=== PATIENT | male | born 1950 | race Caucasian/White ===

== ENCOUNTER 2017-07-17 18:44 | Inpatient (IN) | payer MEDICARE, OTHER, SELFPAY ==
[2017-07-17] VITALS (9 sets, daily range): BP systolic 129–151; BP diastolic 80–98; PULSE 55–67; RESP 15–21; TEMP 36.4–36.8; O2SAT 96–97; BMI 30.4
--- NOTE | 2017-07-17 19:07 | EKG12_ITS ---
Test Reason : REPEAT Blood Pressure : / mmHG Vent. Rate : 060 BPM Atrial Rate : 060 BPM P-R Int : 156 ms QRS Dur : 134 ms QT Int : 460 ms P-R-T Axes : 018 -33 023 degrees QTc Int : 460 ms Normal sinus rhythm with sinus arrhythmia Left axis deviation Right bundle branch block Abnormal ECG Confirmed by PHILIP GIBSON, NAEL ([id number]), movie editor SHANTELLE GAUTAM ([id number]) on 07/20/2017 1:42:01 PM Referred By: JUANPABLO Confirmed By:NAEL PALACIOS MD
--- NOTE | 2017-07-17 19:07 | RAD_ITS ---
STUDY: X-RAY CHEST REASON FOR EXAM: Male, 67 years old. Chest pain TECHNIQUE: Single frontal view of the chest. COMPARISON: April 02, 2009 FINDINGS: The lungs are clear and expanded. There is no demonstrated pleural abnormality. Normal size heart. Normal mediastinum and vibha. Normal visualized pulmonary arteries. Normal visualized aortic arch and descending thoracic aorta. Normal visualized thoracic spine. Normal visualized ribs, clavicles, and shoulders. There is no demonstrated abnormality of the visualized soft tissue structures of the upper abdomen. RAD/Chest 1 View (Portable) IMPRESSION: Normal x-ray examination of the chest. Electronically Signed: Devin Villegas MD at 19:34 EST , Service support ,
[2017-07-17] MEDS: Aspirin 81 MG TAB.CHEW 324 MG PO (19:33)
[2017-07-17] MEDS: 0.9% Normal Saline 1,000 ML 150 ML IV (19:33)
[2017-07-17 19:35] LABS: Absolute Lymphocyte Count 2.05 X10^3/ul (0.83-4.51); Absolute Neutrophil Count 7.8 X10^3/uL (2.0-7.7); Basophil# 0.12 X10^3/uL; Eosinophil# 0.31 X10^3/uL; Eosinophils% 2.7 % (0-5); Hematocrit 47.8 % (40-54); Hemoglobin 15.8 g/dl (13.0-16.5); Lymphocyte # 2.05 X10^3/ul (4.0); Lymphocyte % 17.5 % (19-41); Mean Corp Hgb Conc 33.1 g/gl (32-36); Mean Corpuscular Hgb 31.2 pg (27.0-32.0); Mean Corpuscular Volume 94.3 fL (80-94); Mean Platelet Vol. 10.8 fl (6.2-12.0); Monocyte# 1.32 X10^3/uL; Monocyte% 11.3 % (0-10); Neutrophil # 7.84 X10^3/uL (2.7-7.7); Neutrophil % 67.1 % (47-70); Platelet Count 282 K/mm3 (150-450); RBC Distribution Width CV 14.5 % (11.6-14.6); RBC Distribution Width SD 49.2 fl (35.1-43.9); Red Blood Count 5.07 M/mm3 (4.6-6.2); White Blood Count 11.7 K/mm3 (4.4-11.0)
[2017-07-17 19:36] LABS: POSITIVE COUNT NO; POSITIVE DIFFERENTIAL NO; POSITIVE MORPHOLOGY NO
--- NOTE | 2017-07-17 19:44 | ED.VISSUMM ---
- ER Visit Summary Date of Service: 07/17/17 Chief Complaint: Chest pain History of Present Illness: The patient is a [address] Corrales. He reports that he had chest pain that began yesterday at approximately 9 PM while he was at rest. States that it is an intermittent pain that comes on with exertion and resolves with 5-10 minutes of rest. It is a dull, aching pain on the left side of his chest with radiation straight through to his back and down the back of his left arm. Pain is 4 out of 10 at worst and 3-10 currently. The current pain began partially 5 minutes ago while he was walking up the ramp to the emergency department. He denies any associated nausea, vomiting, diaphoresis, or shortness of breath. States this is occurred approximately 10 times since last night. Physical Examination: Vitals: Stable. Afebrile. General: Well-nourished and well-developed. Head: Normocephalic atraumatic. Neck: Supple, no lymphadenopathy. No JVD. Nontender. Cardiovascular: Regular rate and rhythm. No murmurs. Respiratory: No respiratory distress. Clear to auscultation bilaterally. Abdominal: Soft, nontender, nondistended, normal bowel sounds. No guarding, rebound, or peritoneal signs. Back: Nontender. Extremities: Nontender, no edema. Skin: Normal color, no rash. Neurologic: Alert and oriented ?3. Cranial nerves II through XII are intact. Normal strength and sensation. Psych: Normal affect. Test Results: EKG is sinus the right bundle wes block at a rate of 61. Is unchanged from March 2009. CBC is marked for white count of 11.7, lymphocytes of 18, monocytes of 11. Chest x-ray is normal. Initial troponin is less than 0.02. Chem-7 is more for BUN 23 and creatinine 1.41. Repeat EKG is unchanged. Emergency Department Course and Treatment: Patient had an IV placed. His pain is resolved. He was given aspirin p.o. Treatment Plan: The patient was discussed with Dr. Matos. He is given a dose of Lovenox subcu, Brilinta p.o., and Lopressor p.o. He will be kept n.p.o. after midnight with the plan of a heart catheterization in the morning. She was discussed with Dr. Lowe who will admit him to the hospital. Disposition: Admitted in stable condition Impression: 1. Chest pain. 2. SLADE score of 3. This note was generated with [employer] dictation software. It may contain incorrect words, spelling, and punctuation that were not noted in review of the chart prior to signing ED Disposition - Plan for ED Patient: Chief Complaint: Chest Other Referrals: Willem Corrales MD [Primary Care Provider] -
--- NOTE | 2017-07-17 19:45 | EKG12_ITS ---
Test Reason : CP Blood Pressure : / mmHG Vent. Rate : 061 BPM Atrial Rate : 061 BPM P-R Int : 178 ms QRS Dur : 126 ms QT Int : 444 ms P-R-T Axes : 043 -32 019 degrees QTc Int : 446 ms Normal sinus rhythm Left axis deviation Right bundle branch block Abnormal ECG Confirmed by PHILIP GIBSON, NAEL ([id number]), technical writer and editor SHANTELLE GAUTAM ([id number]) on 07/20/2017 1:42:18 PM Referred By: JUANPABLO Confirmed By:NAEL PALACIOS MD
[2017-07-17 19:53] LABS: Anion Gap 8 (5-15); BUN 23 mg/dL (7-18); BUN/Creat Ratio 16.3 RATIO (10-20); Calcium,Total 9.4 mg/dL (8.5-10.1); Chloride 100 mmol/L (98-107); Creatinine, Serum 1.41 mg/dL (0.70-1.30); EST Glomerular Filtration Rate 53 mL/min (>60); Est Glom Filt Rate - Afr Amer 64 mL/min (>60); Estimated Creatinine Clearance 48.51 ml/min; Glucose 94 mg/dL (74-106); Potassium 3.5 mmol/L (3.5-5.1); Sodium Level 137 mmol/L (136-145)
[2017-07-17] MEDS: Metoprolol Tartrate 25 MG Tablet PO (20:48)
[2017-07-17] MEDS: TICAGRELOR 90 MG TABLET 180 MG PO (20:48)
[2017-07-17] MEDS: Enoxaparin 100 MG/ML Syringe 90 MG SC (20:49)
--- NOTE | 2017-07-17 21:00 | PCM.HP.STD ---
Problem List (1) Unstable angina Status: Acute (2) Hypertension Status: Chronic (3) CKD (chronic kidney disease), stage III Status: Chronic (4) BPH (benign prostatic hyperplasia) Status: Chronic (5) Hyperlipidemia Status: Chronic History of Present Illness Date of Admission: 07/17/17 Chief Complaint: chest pain The patient is a 67 year old M presents with a one-day history of left-sided chest pain. The chest pain is dull and aching. It radiates to his left side and back but also up to his left shoulder. Patient denies any shortness of breath, diaphoresis. Patient had chest pain about 15 years ago but was midsternal and patient underwent a workup and was told that it was related with reflux at that time. This chest pain feels different than that. Patient had an EKG that showed a right bundle branch block, no additional EKGs were available. The ER physician spoke with Dr. Matos, of cardiology, who recommended therapeutic dosing of Lovenox as well as a dose of Brilinta and aspirin. Patient is chest pain-free at this time. [] Past Medical History Past Medical History (Chronic Problems): Chronic Problems Hypertension (Chronic) CKD (chronic kidney disease), stage III (Chronic) BPH (benign prostatic hyperplasia) (Chronic) Hyperlipidemia (Chronic) Allergies No Known Allergies Allergy (Verified 07/17/17 18:45) Home Medications: Ambulatory Orders Medication Instructions Recorded Aspirin [Aspir-Low] 81 mg PO DAILY 07/17/17 Cholecalciferol (Vitamin D3) 1,000 unit PO DAILY 07/17/17 [Vitamin D3] Finasteride [Proscar] 5 mg PO DAILY 07/17/17 Hydrochlorothiazide [Hctz] 25 mg PO DAILY 07/17/17 Rosuvastatin Calcium [Crestor] 40 mg PO QHS 07/17/17 Psychiatric History: No pertinent psych hx Smoking Status: Current some day smoker Tobacco Use: Cigars - 3 cigars per week Alcohol: None Drugs: None - *Family History Maternal History Items: Heart Disease - Pacemaker, - - Lived to 96 Paternal History Items: Heart Disease - Pacemaker, - - Live to 100 years old Review of Systems Constitutional: Denies: Chills, Fever, Weight Change Eyes: Denies: Blurred vision, Double vision HEENT: Denies: Head Aches, Sinus Congestion, Sinus Drainage Cardiovascular: Reports: Chest Pain. Denies: Edema, Orthopnea Respiratory: Denies: Cough, Shortness of breath at rest, Sputum production Gastrointestinal: Denies: Abdominal Pain, Nausea, Vomiting Genitourinary: Denies: Dysuria Musculoskeletal: Denies: Joint Pain, Joint Tenderness Skin: Denies: Rash, Wounds Neurological: Denies: Numbness, Tingling, Focal weakness Psychiatric: Denies: Anxiety, Depression Endocrine: Denies: Change in Body Habitus, Heat/ Cold Intolerance Hematologic/ Lymphatic: Denies: Easy Bruising, Easy Bleeding, Hx of blood clot VTE Information - Inpt Only VTE Present on Admission: No VTE Pharm Prophylaxis ordered?: Yes Patient Problems: Active and Suspected Problems Unstable angina (Acute) - Physical Exam General: Alert, Cooperative, No apparent distress HEENT: Atraumatic, Normocephalic Oral: Moist Mucosa, No Gingival or Mucosal Lesions/ Ulcerations Neck: No Nodes, Thyroid Normal Size and Texture Lungs: Clear to auscultation, Normal air movement, No rhonchi, No wheeze Cardiovascular: Regular rate, Regular Rhythm, Normal S1, Normal S2, No murmurs Abdomen: Bowel Sounds Present, Soft, Non Tender, Non-Distended, No Hepato-splenomegaly Extremities: No edema, No Calf Tenderness Skin: No rashes, No breakdown Musculoskeletal: No Tenderness to Palpation of Joints or Extremities, No Muscle Wasting Neurological: Neuro grossly intact, Sensory exam intact to light touch and pain, Coordination normal Psych/Mental Status: Normal Affect, Appropriate Vital Signs Temp Pulse Resp BP Pulse Ox 36.6 C 58 L 17 141/85 H 96 07/17/17 19:50 07/17/17 20:56 07/17/17 20:56 07/17/17 20:56 07/17/17 20:56 Oxygen Flow Rate 2 Oxygen Delivery Method Nasal Cannula Weight: 90.718 kg Body Mass Index (BMI) 30.4 Laboratory Tests Past 24 Hrs 07/17/17 07/17/17 19:20 19:20 WBC 11.7 H RBC 5.07 Hgb 15.8 Hct 47.8 MCV 94.3 H MCH 31.2 MCHC 33.1 RDW 14.5 RDW Differential 49.2 H Plt Count 282 MPV 10.8 Immature Gran % (Auto) 0.400 Neut % (Auto) 67.1 Lymph % (Auto) 17.5 L [place] % (Auto) 11.3 H Eos % (Auto) 2.7 Baso % (Auto) 1.0 Absolute Neuts (auto) 7.8 H Absolute Lymphs (auto) 2.05 Total Counted Not Reportable Sodium 137 Potassium 3.5 Chloride 100 Carbon Dioxide 29.0 Anion Gap 8 BUN 23 H Creatinine 1.41 H Estim Creat Clear Calc 48.51 Est GFR (MDRD) Af Amer 64 Est GFR (MDRD) Non-Af 53 L BUN/Creatinine Ratio 16.3 Glucose 94 Calcium 9.4 Troponin I < 0.02 Clinical Impression(s) from Imaging Studies Chest X-Ray 07/17/17 19:07 IMPRESSION: Normal x-ray examination of the chest. Electronically Signed: Devin Villegas MD at 19:34 EST , Service support , EKG reviewed and showed normal sinus rhythm with a right bundle branch block. No previous EKGs were available to be compared to. Assessment/Plan Active and Suspected Problems Unstable angina (Acute) 1. Unstable angina Patient has a clinically concerning story. Cardiology has been notified already and the plan is for a left heart catheterization on July 18. We will proceed with medical therapy for now. Patient did receive Brilinta as well as Lovenox in the emergency room. We will give the patient's home dose of aspirin. Continue with Lovenox but hold if necessary further heart catheterization depending what time that will be. Cycle troponins As needed nitroglycerin patient also be on a low-dose beta-analia. We will utilize 12.5 mg given the patient with a low normal heart rate. 2. Hypertension Continue with home medications. 3. Chronic kidney disease stage III I suspect this is chronic rather than acute process. No prior lab work available to be compared to. With anticipated left heart catheterization and contrast load, patient will be on IV fluids. 4. DVT prophylaxis: Patient will be anticoagulated. Code Visit Inpatient E&M: 29032 Init Hosp L3
--- NOTE | 2017-07-17 21:07 | HP.PCM_ITS ---
Problem List (1) Unstable angina Status: Acute (2) Hypertension Status: Chronic (3) CKD (chronic kidney disease), stage III Status: Chronic (4) BPH (benign prostatic hyperplasia) Status: Chronic (5) Hyperlipidemia Status: Chronic History of Present Illness Date of Admission: 07/17/17 Chief Complaint: chest pain The patient is a 67 year old M presents with a one-day history of left-sided chest pain. The chest pain is dull and aching. It radiates to his left side and back but also up to his left shoulder. Patient denies any shortness of breath, diaphoresis. Patient had chest pain about 15 years ago but was midsternal and patient underwent a workup and was told that it was related with reflux at that time. This chest pain feels different than that. Patient had an EKG that showed a right bundle branch block, no additional EKGs were available. The ER physician spoke with Dr. Matos, of cardiology, who recommended therapeutic dosing of Lovenox as well as a dose of Brilinta and aspirin. Patient is chest pain-free at this time. [] Past Medical History Past Medical History (Chronic Problems): Chronic Problems Hypertension (Chronic) CKD (chronic kidney disease), stage III (Chronic) BPH (benign prostatic hyperplasia) (Chronic) Hyperlipidemia (Chronic) Allergies No Known Allergies Allergy (Verified 07/17/17 18:45) Home Medications: Ambulatory Orders Medication Instructions Recorded Aspirin [Aspir-Low] 81 mg PO DAILY 07/17/17 Cholecalciferol (Vitamin D3) 1,000 unit PO DAILY 07/17/17 [Vitamin D3] Finasteride [Proscar] 5 mg PO DAILY 07/17/17 Hydrochlorothiazide [Hctz] 25 mg PO DAILY 07/17/17 Rosuvastatin Calcium [Crestor] 40 mg PO QHS 07/17/17 Psychiatric History: No pertinent psych hx Smoking Status: Current some day smoker Tobacco Use: Cigars - 3 cigars per week Alcohol: None Drugs: None - *Family History Maternal History Items: Heart Disease - Pacemaker, - - Lived to 96 Paternal History Items: Heart Disease - Pacemaker, - - Live to 100 years old Review of Systems Constitutional: Denies: Chills, Fever, Weight Change Eyes: Denies: Blurred vision, Double vision HEENT: Denies: Head Aches, Sinus Congestion, Sinus Drainage Cardiovascular: Reports: Chest Pain. Denies: Edema, Orthopnea Respiratory: Denies: Cough, Shortness of breath at rest, Sputum production Gastrointestinal: Denies: Abdominal Pain, Nausea, Vomiting Genitourinary: Denies: Dysuria Musculoskeletal: Denies: Joint Pain, Joint Tenderness Skin: Denies: Rash, Wounds Neurological: Denies: Numbness, Tingling, Focal weakness Psychiatric: Denies: Anxiety, Depression Endocrine: Denies: Change in Body Habitus, Heat/ Cold Intolerance Hematologic/ Lymphatic: Denies: Easy Bruising, Easy Bleeding, Hx of blood clot VTE Information - Inpt Only VTE Present on Admission: No VTE Pharm Prophylaxis ordered?: Yes Patient Problems: Active and Suspected Problems Unstable angina (Acute) - Physical Exam General: Alert, Cooperative, No apparent distress HEENT: Atraumatic, Normocephalic Oral: Moist Mucosa, No Gingival or Mucosal Lesions/ Ulcerations Neck: No Nodes, Thyroid Normal Size and Texture Lungs: Clear to auscultation, Normal air movement, No rhonchi, No wheeze Cardiovascular: Regular rate, Regular Rhythm, Normal S1, Normal S2, No murmurs Abdomen: Bowel Sounds Present, Soft, Non Tender, Non-Distended, No Hepato- splenomegaly Extremities: No edema, No Calf Tenderness Skin: No rashes, No breakdown Musculoskeletal: No Tenderness to Palpation of Joints or Extremities, No Muscle Wasting Neurological: Neuro grossly intact, Sensory exam intact to light touch and pain , Coordination normal Psych/Mental Status: Normal Affect, Appropriate Vital Signs Temp Pulse Resp BP Pulse Ox 36.6 C 58 L 17 141/85 H 96 07/17/17 19:50 07/17/17 20:56 07/17/17 20:56 07/17/17 20:56 07/17/17 20:56 Oxygen Flow Rate 2 Oxygen Delivery Method Nasal Cannula Weight: 90.718 kg Body Mass Index (BMI) 30.4 Laboratory Tests Past 24 Hrs 07/17/17 07/17/17 19:20 19:20 WBC 11.7 H RBC 5.07 Hgb 15.8 Hct 47.8 MCV 94.3 H MCH 31.2 MCHC 33.1 RDW 14.5 RDW Differential 49.2 H Plt Count 282 MPV 10.8 Immature Gran % (Auto) 0.400 Neut % (Auto) 67.1 Lymph % (Auto) 17.5 L [place] % (Auto) 11.3 H Eos % (Auto) 2.7 Baso % (Auto) 1.0 Absolute Neuts (auto) 7.8 H Absolute Lymphs (auto) 2.05 Total Counted Not Reportable Sodium 137 Potassium 3.5 Chloride 100 Carbon Dioxide 29.0 Anion Gap 8 BUN 23 H Creatinine 1.41 H Estim Creat Clear Calc 48.51 Est GFR (MDRD) Af Amer 64 Est GFR (MDRD) Non-Af 53 L BUN/Creatinine Ratio 16.3 Glucose 94 Calcium 9.4 Troponin I < 0.02 Clinical Impression(s) from Imaging Studies Chest X-Ray 07/17/17 19:07 IMPRESSION: Normal x-ray examination of the chest. Electronically Signed: Devin Villegas MD at 19:34 EST , Service support , EKG reviewed and showed normal sinus rhythm with a right bundle branch block. No previous EKGs were available to be compared to. Assessment/Plan Active and Suspected Problems Unstable angina (Acute) 1. Unstable angina * Patient has a clinically concerning story. Cardiology has been notified already and the plan is for a left heart catheterization on July 18. We will proceed with medical therapy for now. Patient did receive Brilinta as well as Lovenox in the emergency room. We will give the patient's home dose of aspirin. Continue with Lovenox but hold if necessary further heart catheterization depending what time that will be. * Cycle troponins * As needed nitroglycerin patient also be on a low-dose beta-analia. We will utilize 12.5 mg given the patient with a low normal heart rate. 2. Hypertension * Continue with home medications. 3. Chronic kidney disease stage III * I suspect this is chronic rather than acute process. No prior lab work available to be compared to. * With anticipated left heart catheterization and contrast load, patient will be on IV fluids. 4. DVT prophylaxis: Patient will be anticoagulated. Code Visit Inpatient E&M: 22708 In Hosp L3
[2017-07-17] MEDS: Atorvastatin Calcium 80 MG Tablet PO (22:11)
[2017-07-18] VITALS (39 sets, daily range): BP systolic 96–133; BP diastolic 45–74; PULSE 47–63; RESP 13–21; TEMP 36.2–37.1; O2SAT 95–100
[2017-07-18] MEDS: 0.9% Normal Saline 1,000 ML 125 ML IV (01:30)
[2017-07-18 05:41] LABS: Absolute Lymphocyte Count 1.97 X10^3/ul (0.83-4.51); Absolute Neutrophil Count 6.7 X10^3/uL (2.0-7.7); Eosinophil# 0.31 X10^3/uL; Hematocrit 45.9 % (40-54); Lymphocyte # 1.97 X10^3/ul (4.0); Lymphocyte % 19.2 % (19-41); Mean Corp Hgb Conc 32.7 g/gl (32-36); Mean Corpuscular Hgb 30.8 pg (27.0-32.0); Mean Corpuscular Volume 94.3 fL (80-94); Mean Platelet Vol. 10.7 fl (6.2-12.0); Monocyte# 1.14 X10^3/uL; Monocyte% 11.1 % (0-10); Neutrophil # 6.73 X10^3/uL (2.7-7.7); Neutrophil % 65.4 % (47-70); Platelet Count 252 K/mm3 (150-450); RBC Distribution Width CV 14.5 % (11.6-14.6); RBC Distribution Width SD 48.9 fl (35.1-43.9); Red Blood Count 4.87 M/mm3 (4.6-6.2); White Blood Count 10.3 K/mm3 (4.4-11.0)
[2017-07-18 05:42] LABS: POSITIVE COUNT NO; POSITIVE DIFFERENTIAL NO; POSITIVE MORPHOLOGY NO
[2017-07-18 05:53] LABS: International Normalized Ratio 1.1; Prothrombin Time (Protime)PT. 13.5 SECONDS (11.7-14.9)
[2017-07-18 05:54] LABS: Partial Thromboplast Time 55.6 Seconds (24.1-36.2)
--- NOTE | 2017-07-18 05:55 | EKG12_ITS ---
Test Reason : MORNING EKG Blood Pressure : / mmHG Vent. Rate : 052 BPM Atrial Rate : 052 BPM P-R Int : 174 ms QRS Dur : 134 ms QT Int : 468 ms P-R-T Axes : 029 -29 010 degrees QTc Int : 435 ms Sinus bradycardia with sinus arrhythmia Right bundle branch block Abnormal ECG Confirmed by PHILIP GIBSON, NAEL ([id number]), photo editor SHANTELLE GAUTAM ([id number]) on 07/23/2017 1:59:03 PM Referred By: Confirmed By:NAEL PALACIOS MD
[2017-07-18 05:59] LABS: Anion Gap 8 (5-15); BUN 20 mg/dL (7-18); BUN/Creat Ratio 15.3 RATIO (10-20); Calcium,Total 8.8 mg/dL (8.5-10.1); Chloride 102 mmol/L (98-107); Cholesterol 183 mg/dL (200); Creatinine, Serum 1.31 mg/dL (0.70-1.30); EST Glomerular Filtration Rate 58 mL/min (>60); Est Glom Filt Rate - Afr Amer 70 mL/min (>60); Estimated Creatinine Clearance 52.21 ml/min; Glucose 102 mg/dL (74-106); High Density Lipoprotein 41 mg/dL; Potassium 3.5 mmol/L (3.5-5.1); Sodium Level 137 mmol/L (136-145); Triglycerides 244 mg/dL; Very Low Density Lipoprotein 49 mg/dL (5-40)
--- NOTE | 2017-07-18 07:53 | PCM.CONS.C ---
Problem List (1) Unstable angina Status: Acute (2) Hyperlipidemia Status: Chronic (3) Hypertension Status: Chronic (4) Hyperglycemia Status: Chronic (5) CKD (chronic kidney disease), stage III Status: Chronic Reason for Consult Date of Consultation: 07/18/17 History of Present Illness: The patient is a 67 year old male with a past medical history of hyperlipidemia, hypertension, hyperglycemia borderline diabetes, chronic renal insufficiency, who is referred for evaluation of unstable angina pectoris. He states that off and on, he has noted while working with [employer], that he has had episodes of nausea. He has attributed this to not eating breakfast meals. However he notes that over the last 2-3 days he has developed chest discomfort that is radiated towards his back, left shoulder, and down his left upper extremity. This is been an aching sensation. It has waxed and waned. It has occurred at rest and with minimal exertional activity. He elected to present to the emergency department. He states while walking up the incline to the emergency department door he had recurrent symptoms that abated after he stopped and rested. He has noted some associated dyspnea. He has not had clear-cut associated nausea or emesis or diaphoresis. There has been no near syncope or syncope. He has denied orthopnea, PND, or peripheral pitting edema. He states that he underwent an exercise tolerance test greater than 10 years ago. He was told that there was a abnormality however it was insignificant and did not need further evaluation or care. He has not had any cardiovascular testing since that time. His cardiac enzymes were and have been negative. His ECG demonstrated sinus rhythm with a left axis deviation with a right bundle branch block pattern. It has been repeated with no significant change. [] Past Medical History Allergies/Adverse Reactions: Allergies No Known Allergies Allergy (Verified 07/17/17 18:45) Home Medications: Ambulatory Orders Medication Instructions Recorded Aspirin [Aspir-Low] 81 mg PO DAILY 07/17/17 Cholecalciferol (Vitamin D3) 1,000 unit PO DAILY 07/17/17 [Vitamin D3] Finasteride [Proscar] 5 mg PO DAILY 07/17/17 Hydrochlorothiazide [Hctz] 25 mg PO DAILY 07/17/17 Rosuvastatin Calcium [Crestor] 40 mg PO QHS 07/17/17 Past Medical History (Chronic Problems): Chronic Problems Hypertension (Chronic) CKD (chronic kidney disease), stage III (Chronic) BPH (benign prostatic hyperplasia) (Chronic) Hyperlipidemia (Chronic) Hyperglycemia (Chronic) Psychiatric History: No pertinent psych hx - *Family History Maternal History Items: Heart Disease - Pacemaker, - - Lived to 96 Paternal History Items: Heart Disease - Pacemaker, - - Live to 100 years old Lives: Spouse/ Significant Other Smoking Status: Current some day smoker Tobacco Use: Cigars - 3 cigars per week Alcohol: None Drugs: None Review of Systems - Review of Systems General: Denies: Fever, Night Sweats, Fatigue Cardiovascular: Reports: Chest Discomfort, Chest Discomfort at Rest, Chest Discomfort with Exertion, Shortness of Breath. Denies: Orthopnea, PND, Peripheral Edema, Palpitations, Lightheadedness, Dizziness, Near Syncope, Syncope Respiratory: Reports: Shortness of Breath. Denies: Cough, Sputum Production, Hemoptysis Gastrointestinal: Reports: Nausea. Denies: Hematemesis, Hematochezia, Melena Genitourinary: Denies: Dysuria, Hematuria Skin: Denies: Rash Subjectve: This is a 67-year-old white male who appears to be resting comfortably at the moment in no acute distress. Objective: Vital Signs Temp Pulse Resp BP Pulse Ox 97.9 F 55 L 18 119/74 97 07/18/17 03:41 07/18/17 06:58 07/18/17 03:41 07/18/17 03:41 07/18/17 03:41 Oxygen Flow Rate 2 Oxygen Delivery Method Nasal Cannula Weight: 199 lb 15.348 oz Body Mass Index (BMI) 30.4 Intake and Output for Last 24 Hours 07/16/17 07/17/17 07/18/17 23:59 23:59 23:59 Intake Total 425 / 425 633 / 633 Balance 425 / 425 633 / 633 General: Awake, Alert, Oriented x 3, Cooperative, No Acute Distress Neck: No JVD Lungs: Clear to auscultation Cardiovascular: Regular Rhythm, Normal S1, Normal S2 Vascular: No Carotid Bruits Abdomen: Bowel Sounds Present, Soft, Non Tender Extremities: No Cyanosis, No Clubbing, No edema Neurological: No Focal Motor or Sensory Deficit 07/17/17 22:14: Troponin I < 0.02 07/18/17 01:35: Troponin I < 0.02 07/18/17 05:25: Sodium 137, Potassium 3.5, Chloride 102, Carbon Dioxide 27.0, Anion Gap 8, BUN 20 H, Creatinine 1.31 H, Est GFR (MDRD) Af Amer 70, Est GFR (MDRD) Non-Af 58 L, BUN/Creatinine Ratio 15.3, Glucose 102, Calcium 8.8, Triglycerides 244 H, Cholesterol 183, LDL Cholesterol 93, VLDL Cholesterol 49 H, HDL Cholesterol 41 07/18/17 05:25: WBC 10.3, RBC 4.87, Hgb 15.0, Hct 45.9, MCV 94.3 H, MCH 30.8, MCHC 32.7, RDW 14.5, RDW Differential 48.9 H, Plt Count 252, MPV 10.7, Immature Gran % (Auto) 0.300, Neut % (Auto) 65.4, Lymph % (Auto) 19.2, [place] % (Auto) 11.1 H, Eos % (Auto) 3.0, Baso % (Auto) 1.0, Absolute Neuts (auto) 6.7, Total Counted Not Reportable 07/18/17 05:25: PT 13.5, INR 1.1, APTT 55.6 H Rhythm: Sinus rhythm EKG: As noted above CXR: Preliminary evaluation: No acute cardiopulmonary disease process: Please see official report Assessment/Plan . Unstable angina pectoris The patient presents with symptoms compatible with unstable angina pectoris. His initial cardiac enzymes have been negative. His ECG is as noted above and without significant change. He does have multiple cardiovascular risk factors. Based upon his risk factors and his clinical presentation it was felt reasonable that he be considered for further definitive evaluation of his coronary anatomy with diagnostic cardiac catheterization. The procedure and risks were discussed with him. He was agreeable to this approach. Interim he will continue medical management. This will include aspirin, antiplatelet therapy, nitrates as needed, beta-blockers, lipid-lowering agents, anticoagulant agents, etc. 2. Hyperlipidemia He states he does have history of hyperlipidemia. His lipid labs were evaluated. His total cholesterol is elevated. He will need to continue medical management. 3. Hypertension He will continue medical therapy as deemed appropriate. 4. Hyperglycemia The patient states he has borderline diabetes. He is following with his primary care physician for this. 5. Renal insufficiency The patient does have a history of chronic renal insufficiency. His renal function will be monitored. His medications can be adjusted as deemed appropriate. Comment: The patient's case has been discussed and reviewed with patient and with the [facility] emergency department staff. This note was generated with [employer] software. Every effort was made to ensure accuracy, however, computerized security vehicle patrol officer mistakes may persist.
--- NOTE | 2017-07-18 08:03 | CON.PCM_ITS ---
Problem List (1) Unstable angina Status: Acute (2) Hyperlipidemia Status: Chronic (3) Hypertension Status: Chronic (4) Hyperglycemia Status: Chronic (5) CKD (chronic kidney disease), stage III Status: Chronic Reason for Consult Date of Consultation: 07/18/17 History of Present Illness: The patient is a 67 year old male with a past medical history of hyperlipidemia , hypertension, hyperglycemia borderline diabetes, chronic renal insufficiency , who is referred for evaluation of unstable angina pectoris. He states that off and on, he has noted while working with [employer], that he has had episodes of nausea. He has attributed this to not eating breakfast meals. However he notes that over the last 2-3 days he has developed chest discomfort that is radiated towards his back, left shoulder, and down his left upper extremity. This is been an aching sensation. It has waxed and waned. It has occurred at rest and with minimal exertional activity. He elected to present to the emergency department. He states while walking up the incline to the emergency department door he had recurrent symptoms that abated after he stopped and rested. He has noted some associated dyspnea. He has not had clear -cut associated nausea or emesis or diaphoresis. There has been no near syncope or syncope. He has denied orthopnea, PND, or peripheral pitting edema. He states that he underwent an exercise tolerance test greater than 10 years ago. He was told that there was a abnormality however it was insignificant and did not need further evaluation or care. He has not had any cardiovascular testing since that time. His cardiac enzymes were and have been negative. His ECG demonstrated sinus rhythm with a left axis deviation with a right bundle branch block pattern. It has been repeated with no significant change. [] Past Medical History Allergies/Adverse Reactions: Allergies No Known Allergies Allergy (Verified 07/17/17 18:45) Home Medications: Ambulatory Orders Medication Instructions Recorded Aspirin [Aspir-Low] 81 mg PO DAILY 07/17/17 Cholecalciferol (Vitamin D3) 1,000 unit PO DAILY 07/17/17 [Vitamin D3] Finasteride [Proscar] 5 mg PO DAILY 07/17/17 Hydrochlorothiazide [Hctz] 25 mg PO DAILY 07/17/17 Rosuvastatin Calcium [Crestor] 40 mg PO QHS 07/17/17 Past Medical History (Chronic Problems): Chronic Problems Hypertension (Chronic) CKD (chronic kidney disease), stage III (Chronic) BPH (benign prostatic hyperplasia) (Chronic) Hyperlipidemia (Chronic) Hyperglycemia (Chronic) Psychiatric History: No pertinent psych hx - *Family History Maternal History Items: Heart Disease - Pacemaker, - - Lived to 96 Paternal History Items: Heart Disease - Pacemaker, - - Live to 100 years old Lives: Spouse/ Significant Other Smoking Status: Current some day smoker Tobacco Use: Cigars - 3 cigars per week Alcohol: None Drugs: None Review of Systems - Review of Systems General: Denies: Fever, Night Sweats, Fatigue Cardiovascular: Reports: Chest Discomfort, Chest Discomfort at Rest, Chest Discomfort with Exertion, Shortness of Breath. Denies: Orthopnea, PND, Peripheral Edema, Palpitations, Lightheadedness, Dizziness, Near Syncope, Syncope Respiratory: Reports: Shortness of Breath. Denies: Cough, Sputum Production, Hemoptysis Gastrointestinal: Reports: Nausea. Denies: Hematemesis, Hematochezia, Melena Genitourinary: Denies: Dysuria, Hematuria Skin: Denies: Rash Subjectve: This is a 67-year-old white male who appears to be resting comfortably at the moment in no acute distress. Objective: Vital Signs Temp Pulse Resp BP Pulse Ox 97.9 F 55 L 18 119/74 97 07/18/17 03:41 07/18/17 06:58 07/18/17 03:41 07/18/17 03:41 07/18/17 03:41 Oxygen Flow Rate 2 Oxygen Delivery Method Nasal Cannula Weight: 199 lb 15.348 oz Body Mass Index (BMI) 30.4 Intake and Output for Last 24 Hours 07/16/17 07/17/17 07/18/17 23:59 23:59 23:59 Intake Total 425 / 425 633 / 633 Balance 425 / 425 633 / 633 General: Awake, Alert, Oriented x 3, Cooperative, No Acute Distress Neck: No JVD Lungs: Clear to auscultation Cardiovascular: Regular Rhythm, Normal S1, Normal S2 Vascular: No Carotid Bruits Abdomen: Bowel Sounds Present, Soft, Non Tender Extremities: No Cyanosis, No Clubbing, No edema Neurological: No Focal Motor or Sensory Deficit 07/17/17 22:14: Troponin I < 0.02 07/18/17 01:35: Troponin I < 0.02 07/18/17 05:25: Sodium 137, Potassium 3.5, Chloride 102, Carbon Dioxide 27.0, Anion Gap 8, BUN 20 H, Creatinine 1.31 H, Est GFR (MDRD) Af Amer 70, Est GFR ( MDRD) Non-Af 58 L, BUN/Creatinine Ratio 15.3, Glucose 102, Calcium 8.8, Triglycerides 244 H, Cholesterol 183, LDL Cholesterol 93, VLDL Cholesterol 49 H , HDL Cholesterol 41 07/18/17 05:25: WBC 10.3, RBC 4.87, Hgb 15.0, Hct 45.9, MCV 94.3 H, MCH 30.8, MCHC 32.7, RDW 14.5, RDW Differential 48.9 H, Plt Count 252, MPV 10.7, Immature Gran % (Auto) 0.300, Neut % (Auto) 65.4, Lymph % (Auto) 19.2, [place] % (Auto) 11.1 H, Eos % (Auto) 3.0, Baso % (Auto) 1.0, Absolute Neuts (auto) 6.7, Total Counted Not Reportable 07/18/17 05:25: PT 13.5, INR 1.1, APTT 55.6 H Rhythm: Sinus rhythm EKG: As noted above CXR: Preliminary evaluation: No acute cardiopulmonary disease process: Please see official report Assessment/Plan . Unstable angina pectoris The patient presents with symptoms compatible with unstable angina pectoris. His initial cardiac enzymes have been negative. His ECG is as noted above and without significant change. He does have multiple cardiovascular risk factors. Based upon his risk factors and his clinical presentation it was felt reasonable that he be considered for further definitive evaluation of his coronary anatomy with diagnostic cardiac catheterization. The procedure and risks were discussed with him. He was agreeable to this approach. Interim he will continue medical management. This will include aspirin, antiplatelet therapy, nitrates as needed, beta-blockers, lipid-lowering agents, anticoagulant agents, etc. 2. Hyperlipidemia He states he does have history of hyperlipidemia. His lipid labs were evaluated. His total cholesterol is elevated. He will need to continue medical management. 3. Hypertension He will continue medical therapy as deemed appropriate. 4. Hyperglycemia The patient states he has borderline diabetes. He is following with his primary care physician for this. 5. Renal insufficiency The patient does have a history of chronic renal insufficiency. His renal function will be monitored. His medications can be adjusted as deemed appropriate. Comment: The patient's case has been discussed and reviewed with patient and with the [facility] emergency department staff. This note was generated with [employer] software. Every effort was made to ensure accuracy, however, computerized vasc tech mistakes may persist.
[2017-07-18] MEDS: Metoprolol Tartrate 25 MG Tablet 12.5 MG PO (08:37)
[2017-07-18] MEDS: Aspirin E.C. 81 MG Tablet PO (08:37)
[2017-07-18] MEDS: TICAGRELOR 90 MG TABLET PO ×2 (08:38→21:17)
--- NOTE | 2017-07-18 08:41 | NURSING ---
Called report to Nadia DAS in cytology laboratory manager
--- NOTE | 2017-07-18 09:45 | NURSING ---
Called report to Carmen DAS in ICU
--- NOTE | 2017-07-18 10:21 | PN_ITS ---
Patient Problems: Active and Suspected Problems Unstable angina (Acute) Subjective: Chief complaint: Follow-up after admission for unstable angina. Patient seen and examined. No acute events overnight. He denies any more chest pain, denies shortness of breath. Denied dizziness, lightheadedness, syncope or presyncope. Vital signs are stable, afebrile. - Physical Exam General: Alert, Oriented x3, Cooperative, No apparent distress HEENT: Atraumatic, PERRLA, EOMI Oral: Moist Mucosa, No Gingival or Mucosal Lesions/ Ulcerations Neck: Supple, No JVD, Negative Carotid Bruits, Trachea Midline, Thyroid Normal Size and Texture Lungs: Clear to auscultation, No rhonchi, No wheeze, No rales, Diminished Cardiovascular: Regular rate, Regular Rhythm, Normal S1, Normal S2, No murmurs Abdomen: Bowel Sounds Present, Soft, Non Tender, Non-Distended, No Hepato- splenomegaly Extremities: No clubbing, No cyanosis, No edema Skin: No rashes, No breakdown Lymphatic: No Cervical, Supraclavicular, or Inguinal Adenopathy Neurological: Cranial nerves II-XII grossly intact, Motor Exam 5/5 strength throughout Psych/Mental Status: Normal Affect, Appropriate, Alert and oriented to time, place, person, mood and affect Vital Signs Temp Pulse Resp BP Pulse Ox 97.6 F L 55 L 16 130/74 H 97 07/18/17 08:36 07/18/17 08:37 07/18/17 08:36 07/18/17 08:36 07/18/17 08:36 Oxygen Flow Rate 2 Oxygen Delivery Method Room Air Weight: 199 lb 15.348 oz Body Mass Index (BMI) 30.4 Intake and Output for Last 24 Hours 07/16/17 07/17/17 07/18/17 23:59 23:59 23:59 Intake Total 425 / 425 633 / 633 Balance 425 / 425 633 / 633 Laboratory Tests Past 24 Hrs 07/17/17 07/18/17 07/18/17 22:14 01:35 05:25 WBC RBC Hgb Hct MCV MCH MCHC RDW RDW Differential Plt Count MPV Immature Gran % (Auto) Neut % (Auto) Lymph % (Auto) [place] % (Auto) Eos % (Auto) Baso % (Auto) Absolute Neuts (auto) Absolute Lymphs (auto) Total Counted PT INR APTT Sodium 137 Potassium 3.5 Chloride 102 Carbon Dioxide 27.0 Anion Gap 8 BUN 20 H Creatinine 1.31 H Estim Creat Clear Calc 52.21 Est GFR (MDRD) Af Amer 70 Est GFR (MDRD) Non-Af 58 L BUN/Creatinine Ratio 15.3 Glucose 102 Calcium 8.8 Troponin I < 0.02 < 0.02 Triglycerides 244 H Cholesterol 183 LDL Cholesterol 93 VLDL Cholesterol 49 H HDL Cholesterol 41 07/18/17 07/18/17 05:25 05:25 WBC 10.3 RBC 4.87 Hgb 15.0 Hct 45.9 MCV 94.3 H MCH 30.8 MCHC 32.7 RDW 14.5 RDW Differential 48.9 H Plt Count 252 MPV 10.7 Immature Gran % (Auto) 0.300 Neut % (Auto) 65.4 Lymph % (Auto) 19.2 [place] % (Auto) 11.1 H Eos % (Auto) 3.0 Baso % (Auto) 1.0 Absolute Neuts (auto) 6.7 Absolute Lymphs (auto) 1.97 Total Counted Not Reportable PT 13.5 INR 1.1 APTT 55.6 H Sodium Potassium Chloride Carbon Dioxide Anion Gap BUN Creatinine Estim Creat Clear Calc Est GFR (MDRD) Af Amer Est GFR (MDRD) Non-Af BUN/Creatinine Ratio Glucose Calcium Troponin I Triglycerides Cholesterol LDL Cholesterol VLDL Cholesterol HDL Cholesterol Assessment/Plan Active and Suspected Problems Unstable angina (Acute) This is a 67 years old male patient admitted because of chest pain and he was found to have unstable angina, status post cardiac catheterization with PTCA/ MICHELLE to the ostial/proximal branch as well as PTCA and MICHELLE mid LAD. #1 unstable angina: Status post cardiac catheterization and PTCA with the S2 both diagonal branch and mid LAD. He is on aspirin, statins, metoprolol, losartan and Brilinta. Vital signs are stable. Cardiology on the case. Plan: Continue same treatment. #2 hypertension: Blood pressure stable, continue losartan and metoprolol. #3 hyperlipidemia: Continue statins. #4 renal insufficiency: With unknown baseline kidney function. Admission creatinine was 1.41, today's creatinine 1.31. Patient on IV fluids. Plan to repeat BMP tomorrow morning. #5 benign prostatic hypertrophy: Continue Proscar. #6 DVT prophylaxis: SCDs. This note was generated with [employer] software. It may contain incorrect words, spelling, and punctuation that were not noted in checking the note before signing. Code Visit Inpatient E&M: 41540 Subs Hosp L2
--- NOTE | 2017-07-18 10:30 | EKG12_ITS ---
Test Reason : POST PCI Blood Pressure : / mmHG Vent. Rate : 050 BPM Atrial Rate : 050 BPM P-R Int : 190 ms QRS Dur : 124 ms QT Int : 470 ms P-R-T Axes : 053 -37 012 degrees QTc Int : 428 ms Sinus bradycardia with Premature atrial complexes Left axis deviation Right bundle branch block Inferior infarct , age undetermined Abnormal ECG Confirmed by PHILIP GIBSON, NAEL ([id number]), fan mail editor SHANTELLE GAUTAM ([id number]) on 07/23/2017 2:11:51 PM Referred By: MARYANN Confirmed By:NEAL PALACIOS MD
[2017-07-18 10:31] LABS: ACT Activated Clotting Time 329 sec (74-137)
--- NOTE | 2017-07-18 10:48 | CL.I_ITS ---
Patient Name: JESUS SOSA Study Date: 07/18/2017 Performing: Milad Casiano MD Ht: 68.11 inches 173 cm : 1950 Wt: 200.62 lbs 91 kg Age: 67 Gender: male BSA: 2.05 PROCEDURE(S) PERFORMED [id number] W OR WO PTCA, SINGLE CORONARY ARTERY [id number] W OR WO PTCA, EACH ADD'L ARTERY, SAME MAJOR CLINICAL PROFILE AND CO-MORBIDITIES INDICATIONS: Unstable Angina Stress/Imaging Stress/Image Study Performed: No Angina Classification Anginal Classification w/in 2 Weeks: CCS IV CAD Presentations: Unstable angina. CONCLUSIONS Successful PTCA/MICHELLE of the of ostial/proximal DIAG#1 with a2.5 x 38 Promus Synergy, post dilated prox imally with a 2.5 x 8 NC balloon to insure adequate ostial stent deployment; 75%-->0%, no dissection. Successful PTCA/MICHELLE of the mid LAD with a 2.5 x 32 Promus Synergy, post dilated proximally with a 3.0 x 12 NC balloon; 75%-->0%, no dissection. No encroachment over ostial diag noted. RECOMMENDATIONS Highly recommend quitting all tobacco products Follow up with primary snubber Risk factor modification KULWINDER Rosenberginiromi Plavix for at least 12 months Routine post interventional care Refer for Outpatient Cardiac Rehab Manual sheath removal per protocol Follow up with Dr. Carlo Sheppard for life. DESCRIPTION OF PROCEDURE The patient arrived to the procedure lab. The risks and benefits of the procedure as well as a full d escription of our services here and current unavailability of surgical backup were fully explained to the patient and/or their significant other prior to the catheterization. The Timeout was completed, verifying the correct patient and procedure. The patient's procedural site was prepped and draped in the usual fashion. Local anesthetic was given subcutaneously to right groin region with Lidocaine 2% Using a modified Seldinger technique,arterial access was obtained via the right femoral artery, a 4Fr sheath was inserted Left Coronary Artery selective angiography was performed in multiple views using a 4 Fr. JL5 catheter. Right Coronary Artery selective angiography was then performed in multiple vie ws using a 4 Fr. 3DRC catheter. Left Ventriculography was performed in [place] projection using a 4 Fr. P igtail catheter.The images were reviewed and options discussed. A decision was then made to proceed w ith an Intervention, IVUS or other adjunct procedure. Arterial sheath was exchanged for a 6 Fr Sheath Angiogram performed pre balloon dilatation. ebu 3.75 Guide catheter was inserted and engaged into the LCA. bmw Guide wire was advanced to the 1st Diagonal . bmw Guide wire was advanced to the LAD. emerge 2.00 x 12 Balloon catheter was advanced across lesio n in the first diagonal, proximal. PTCA balloon inflated at 8 atms for 8 secs PTCA balloon inflated a t 10 atms for 10 secs Angiogram performed post balloon dilatation. emerge 2.00 x 12 Balloon catheter was advanced across lesion in the LAD, mid. PTCA balloon inflated at 8 atms for 10 secs Angiogram per formed pre stent deployment. synergy 2.5 x 38 Drug Eluting stent was advanced across the lesion in th e first diagonal, proximal. Angiogram performed post stent deployment. emerge 2.[address] x [address] was advanced across lesion in the LAD, mid. PTCA balloon inflated at 10 atms for 10 secs PTCA bal loon inflated at 12 atms for 12 secs Angiogram performed pre stent deployment. emerge 3.00 x 12 Ballo on catheter was advanced across lesion in the LAD, mid. PTCA balloon inflated at 8 atms for 10 secs P TCA balloon inflated at 10 atms for 10 secs PTCA balloon inflated at 12 atms for 9 secs PTCA balloon inflated at 12 atms for 10 secs synergy 2.5 x 32 Drug Eluting stent was advanced across the lesion in the LAD, mid. Angiogram performed pre stent deployment. Angiogram performed post stent deployment. n c emerge 3.00 x 12 Balloon catheter was inserted post stent. Angiogram performed post stent deploymen t. emerge 2.0 x 12 Balloon catheter was inserted post stent into the prox diag PTCA balloon inflated at 12 atms for 10 secs Angiogram performed post balloon dilatation. nc emerge 2.5 x 8 Balloon cathete r was inserted post stent into 1st diag Angiogram performed post balloon dilatation.. . The arterial sheath was sutured in place and capped. INTERVENTION INFORMATION LESION SITE: 1st Diagonal (Proximal) Lesion Complexity: High/C, lesion at bifurcation: Yes, thrombus present: No, lesion length: 38 mm, cu lprit lesion: Yes Pre Stenosis: 75 % Pre intervention SLADE flow: 3 PROCEDURE: Drug Eluting Stent with pre and post dilatation Post Stenosis: 0 % Post intervention SLADE flow: 3 Lesion Devices: Charles .014 BMW [place] Straight 190cm Medtronic 6 Fr EBU3.75 100cm Guide Catheter Jtain Sci EMERGE MR 2.00x12 BALLOON Jatin Sci Synergy MR MICHELLE 2.50x38 Jatin Sci NC EMERGE MR 2.50x08 BALLOON LESION SITE: LAD (Mid) Lesion Complexity: High/C, lesion at bifurcation: Yes, thrombus present: No, lesion length: 32 mm, cu lprit lesion: No PROCEDURE: Drug Eluting Stent with pre and post dilatation Lesion Devices: Charles .014 [employer] [place] Straight 190cm Medtronic 6 Fr EBU3.75 100cm Guide Catheter Jatin Sci Synergy MR MICHELLE 2.50x32 Jatin Sci EMERGE MR 3.00x12 BALLOON Jatin Sci NC EMERGE MR 3.00x12 BALLOON COMPLICATIONS No Complications PROCEDURE MEDICATIONS Versed 1 mg IV Oxygen: 2 L/min via nasal cannula Heparin 6000 unit(s) IV 07/18/2017 09:35:43 Heparin 4000 unit(s) IV 07/18/2017 10:02:35 Nitro 200 mcg IC 07/18/2017 09:36:16 Nitro 200 mcg IC 07/18/2017 09:36:16 Nitro 200 mcg IC 07/18/2017 09:44:46 SUMMARY OF HEMODYNAMIC DATA Time AIR REST ECG 09:02:27 AO 97/50 (73) SA 09:13:41 LV 111/8, 20 09:20:29 LV 110/7, 17 09:20:37 LV 115/-14, 14 09:21:37 LVp 114/-15, 15 09:21:45 AOp 111/52 (77) 09:21:50 Signed By Milad Casiano MD On 07/18/2017 10:44:48 Milad Casiano MD
[2017-07-18 11:31] LABS: Hematocrit 43.4 % (40-54); Hemoglobin 14.2 g/dl (13.0-16.5); Mean Corp Hgb Conc 32.7 g/gl (32-36); Mean Corpuscular Hgb 30.9 pg (27.0-32.0); Mean Corpuscular Volume 94.6 fL (80-94); Mean Platelet Vol. 11.1 fl (6.2-12.0); Platelet Count 228 K/mm3 (150-450); RBC Distribution Width CV 14.5 % (11.6-14.6); RBC Distribution Width SD 48.5 fl (35.1-43.9); Red Blood Count 4.59 M/mm3 (4.6-6.2); White Blood Count 9.2 K/mm3 (4.4-11.0)
--- NOTE | 2017-07-18 11:31 | CRPHASE1 ---
Patient Data/Charges Phase II Referral:: [facility] Start Phase II:: FOLLOWING CARDIOLOGY OFFICE VISIT Risk Factors/Lifestyle Smoking Status: Current every day smoker Hx Hypertension: Yes Hx Diabetes Mellitus Type 2: Yes - BORDERLINE DIABETIC Hx Metabolic Disorders: Yes Hx Dyslipidemia: Yes Hx Obesity: Yes Height: 5 ft 8 in - WT #199 Stress: Home/Family Risk Factor for Sedentary Lifestyle: Moderate Risk Past Cardiac Illness: Other - STAGE III RENAL DISEASE Laboratory Values: Cardiac Rehab Phase I Labs Triglycerides 244 mg/dL (-199) H 07/18/17 05:25 Cholesterol 183 mg/dL (200) 07/18/17 05:25 LDL Cholesterol 93 mg/dL (0-130) 07/18/17 05:25 HDL Cholesterol 41 mg/dL (40-) 07/18/17 05:25 Phase I Education Given On:: [place], Nutrition, Antiplatelet medication, Smoking cessation, Diabetes - Type II Issues Affecting Care:: None - IS AT BEDSIDE Knowledge of Condition:: Yes Learning Preferences: Verbal, Written Hospital Course Presenting Symptoms:: UNSTABLE ANGINA Medical/Surgical History [place]:: No Angina:: Yes - UNSTABLE Renal:: Yes - STAGE III Discharge/Home/Social Eval Discharge Disposition: Home Marital Status:
--- NOTE | 2017-07-18 11:34 | CRPHASE1_ITS ---
Patient Data/Charges Phase II Referral:: [facility] Start Phase II:: FOLLOWING CARDIOLOGY OFFICE VISIT Risk Factors/Lifestyle Smoking Status: Current every day smoker Hx Hypertension: Yes Hx Diabetes Mellitus Type 2: Yes - BORDERLINE DIABETIC Hx Metabolic Disorders: Yes Hx Dyslipidemia: Yes Hx Obesity: Yes Height: 5 ft 8 in - WT #199 Stress: Home/Family Risk Factor for Sedentary Lifestyle: Moderate Risk Past Cardiac Illness: Other - STAGE III RENAL DISEASE Laboratory Values: Cardiac Rehab Phase I Labs Triglycerides 244 mg/dL (-199) H 07/18/17 05:25 Cholesterol 183 mg/dL (200) 07/18/17 05:25 LDL Cholesterol 93 mg/dL (0-130) 07/18/17 05:25 HDL Cholesterol 41 mg/dL (40-) 07/18/17 05:25 Phase I Education Given On:: [place], Nutrition, Antiplatelet medication, Smoking cessation, Diabetes - Type II Issues Affecting Care:: None - IS AT BEDSIDE Knowledge of Condition:: Yes Learning Preferences: Verbal, Written Hospital Course Presenting Symptoms:: UNSTABLE ANGINA Medical/Surgical History [place]:: No Angina:: Yes - UNSTABLE Renal:: Yes - STAGE III Discharge/Home/Social Eval Discharge Disposition: Home Marital Status:
--- NOTE | 2017-07-18 11:34 | CRPH1.INSTRU ---
General Education CAD and cardiac anatomy and function:: Patient communicates acknowledgment, Family communicates acknowledgment Explanation of diagnoses and procedures:: Patient communicates acknowledgment, Family communicates acknowledgment Sign/Symptoms of NV:: Patient communicates acknowledgment, Family communicates acknowledgment Antiplatelet therapy: Patient communicates acknowledgment, Family communicates acknowledgment Proper use of NTG-SL: Patient communicates acknowledgment, Family communicates acknowledgment Emergency procedures and activation of EMS: Patient communicates acknowledgment, Family communicates acknowledgment Compliance of all prescribed medications: Patient communicates acknowledgment, Family communicates acknowledgment Smoking Patient Nicotine/Smoking Risk Factors Are:: Cigars Recommendations Include:: Participation in a smoking cessation program Nicotine/Smoking Response Code:: Patient communicates acknowledgment, Family communicates acknowledgment Dyslipidemia Patient Dyslipidemia Risk Factors Are:: Total Cholesterol, Triglycerides, LDL Recommendations Include:: Lipid profile provided, Reviewed NCEP/ATP guidelines, Therapeutic Lifestyle Change dietary guidelines Dyslipidemia Response Code:: Patient communicates acknowledgment, Family communicates acknowledgment Overweight/Obesity Patient Overweight/Obesity Risk Factors Are:: Obesity - > or = 30 Recommendations Include:: Weight loss of 5-10%, Reduced calorie diet, Exercise 5-7 times/week Overweight/Obesity:: Patient communicates acknowledgment, Family communicates acknowledgment Hypertension Recommendations Include:: Maintain BP <130/85, DASH dietary guidelines, Decrease/maintain normal body weight, Moderation of ETOH Hypertension:: Patient communicates acknowledgment, Family communicates acknowledgment Diabetes Patient Diabetes Risk Factors Are:: Elevated blood sugars Recommendations Include:: Maintain fasting blood sugars 70-110 md/dL, Maintain HgbA1c of 6% or less, Monitor blood sugar as prescribed, Diabetic dietary guidelines, Decrease/maintain body weight Diabetes:: Patient communicates acknowledgment, Family communicates acknowledgment Metabolic Syndrome Patient Metabolic Syndrome Risk Factors Are [3 of 5]:: Fasting blood sugar > 100 mg/dL, Waist circumference > 35 [female] or 40 [male], High triglyceride >150, Hypertension Recommendations Include:: Reinforce compliance to risk factor modifications, Patient is diabetic - BORDERLINE DIABETIC, Encouraged follow-up with Primary Care Physician Metabolic Syndrome Response Code:: Patient communicates acknowledgment, Family communicates acknowledgment Sedentary Patient Sedentary Risk Factors Are:: Lack of regular exercise Recommendations Include:: Aerobic exercise 5-7 times/week for 20-30 minutes continuously, Benefits of regular exercise, Discussed home walking program, Monitored Outpatient Cardiac Rehab Sedentary Response Code:: Patient communicates acknowledgment, Family communicates acknowledgment Stress Recommendations Include:: Identification of stressors, and assessment of coping skills, Stress management techniques Stress Response Code:: Patient communicates acknowledgment, Family communicates acknowledgment
[2017-07-18 11:37] LABS: CPK Total, Creatine Kinase 103 U/L (39-308)
--- NOTE | 2017-07-18 11:37 | CRPH1.INST_ITS ---
General Education CAD and cardiac anatomy and function:: Patient communicates acknowledgment, Family communicates acknowledgment Explanation of diagnoses and procedures:: Patient communicates acknowledgment, Family communicates acknowledgment Sign/Symptoms of AK:: Patient communicates acknowledgment, Family communicates acknowledgment Antiplatelet therapy: Patient communicates acknowledgment, Family communicates acknowledgment Proper use of NTG-SL: Patient communicates acknowledgment, Family communicates acknowledgment Emergency procedures and activation of EMS: Patient communicates acknowledgment , Family communicates acknowledgment Compliance of all prescribed medications: Patient communicates acknowledgment, Family communicates acknowledgment Smoking Patient Nicotine/Smoking Risk Factors Are:: Cigars Recommendations Include:: Participation in a smoking cessation program Nicotine/Smoking Response Code:: Patient communicates acknowledgment, Family communicates acknowledgment Dyslipidemia Patient Dyslipidemia Risk Factors Are:: Total Cholesterol, Triglycerides, LDL Recommendations Include:: Lipid profile provided, Reviewed NCEP/ATP guidelines, Therapeutic Lifestyle Change dietary guidelines Dyslipidemia Response Code:: Patient communicates acknowledgment, Family communicates acknowledgment Overweight/Obesity Patient Overweight/Obesity Risk Factors Are:: Obesity - > or = 30 Recommendations Include:: Weight loss of 5-10%, Reduced calorie diet, Exercise 5 -7 times/week Overweight/Obesity:: Patient communicates acknowledgment, Family communicates acknowledgment Hypertension Recommendations Include:: Maintain BP <130/85, DASH dietary guidelines, Decrease /maintain normal body weight, Moderation of ETOH Hypertension:: Patient communicates acknowledgment, Family communicates acknowledgment Diabetes Patient Diabetes Risk Factors Are:: Elevated blood sugars Recommendations Include:: Maintain fasting blood sugars 70-110 md/dL, Maintain HgbA1c of 6% or less, Monitor blood sugar as prescribed, Diabetic dietary guidelines, Decrease/maintain body weight Diabetes:: Patient communicates acknowledgment, Family communicates acknowledgment Metabolic Syndrome Patient Metabolic Syndrome Risk Factors Are [3 of 5]:: Fasting blood sugar > 100 mg/dL, Waist circumference > 35 [female] or 40 [male], High triglyceride > 150, Hypertension Recommendations Include:: Reinforce compliance to risk factor modifications, Patient is diabetic - [facility], Encouraged follow-up with Primary Care Physician Metabolic Syndrome Response Code:: Patient communicates acknowledgment, Family communicates acknowledgment Sedentary Patient Sedentary Risk Factors Are:: Lack of regular exercise Recommendations Include:: Aerobic exercise 5-7 times/week for 20-30 minutes continuously, Benefits of regular exercise, Discussed home walking program, Monitored Outpatient Cardiac Rehab Sedentary Response Code:: Patient communicates acknowledgment, Family communicates acknowledgment Stress Recommendations Include:: Identification of stressors, and assessment of coping skills, Stress management techniques Stress Response Code:: Patient communicates acknowledgment, Family communicates acknowledgment
[2017-07-18 11:39] LABS: Scan Indicated on CBC? Y/N NO
[2017-07-18 12:45] LABS: ACT Activated Clotting Time 175 sec (74-137)
[2017-07-18 13:31] LABS: M R Staph aureus DNA By PCR Negative (Negative); Probe Check PASS; Specimen Processing Control PASS
[2017-07-18 13:41] LABS: ACT Activated Clotting Time 158 sec (74-137)
[2017-07-18] MEDS: 0.9% Normal Saline 1,000 ML 150 ML IV (14:00)
--- NOTE | 2017-07-18 14:24 | CASEMGMT ---
RN TINO assessment/chart review. Assessment: Patient was adm for unstable angina, went for cath with +intervention. Transition Planning/Care Coordination: Patient follows with Dr. Corrales for primary care and will follow-up with Dr. Matos for cardio. Patient is independent and lives with his spouse. No home-going needs anticipated. RN CM will remain available to assist should needs arise. Written RN CM handoff provided to Avel Lucas ICU/CVICU/MS2 RN TINO.
[2017-07-18] MEDS: Finasteride 5 MG Tablet PO (17:14)
[2017-07-18] MEDS: 0.9% NaCl Peripheral Flush Adult/Peds IV ×2 (17:14→17:17)
[2017-07-18 18:30] LABS: Hematocrit 43.8 % (40-54); Hemoglobin 13.9 g/dl (13.0-16.5); Mean Corp Hgb Conc 31.7 g/gl (32-36); Mean Corpuscular Hgb 30.2 pg (27.0-32.0); Mean Corpuscular Volume 95.2 fL (80-94); Mean Platelet Vol. 10.9 fl (6.2-12.0); Platelet Count 237 K/mm3 (150-450); RBC Distribution Width CV 14.6 % (11.6-14.6); RBC Distribution Width SD 50.9 fl (35.1-43.9); White Blood Count 10.1 K/mm3 (4.4-11.0)
[2017-07-18 18:38] LABS: Scan Indicated on CBC? Y/N NO
[2017-07-18 18:45] LABS: CPK Total, Creatine Kinase 99 U/L (39-308)
[2017-07-18] MEDS: Atorvastatin Calcium 80 MG Tablet PO (21:17)
[2017-07-18 23:37] LABS: Hematocrit 41.8 % (40-54); Hemoglobin 13.6 g/dl (13.0-16.5); Mean Corp Hgb Conc 32.5 g/gl (32-36); Mean Corpuscular Hgb 30.8 pg (27.0-32.0); Mean Corpuscular Volume 94.8 fL (80-94); Mean Platelet Vol. 10.9 fl (6.2-12.0); Platelet Count 228 K/mm3 (150-450); RBC Distribution Width CV 14.6 % (11.6-14.6); RBC Distribution Width SD 50.7 fl (35.1-43.9); Red Blood Count 4.41 M/mm3 (4.6-6.2); White Blood Count 9.6 K/mm3 (4.4-11.0)
[2017-07-18 23:38] LABS: Scan Indicated on CBC? Y/N NO
[2017-07-18 23:54] LABS: CPK Total, Creatine Kinase 102 U/L (39-308)
[2017-07-19] VITALS (14 sets, daily range): BP systolic 90–149; BP diastolic 35–80; PULSE 48–71; RESP 14–24; TEMP 36–37; O2SAT 93–99
[2017-07-19 04:49] LABS: Hematocrit 40.9 % (40-54); Hemoglobin 13.2 g/dl (13.0-16.5); Mean Corp Hgb Conc 32.3 g/gl (32-36); Mean Corpuscular Hgb 30.6 pg (27.0-32.0); Mean Corpuscular Volume 94.9 fL (80-94); Mean Platelet Vol. 10.9 fl (6.2-12.0); Platelet Count 213 K/mm3 (150-450); RBC Distribution Width CV 14.6 % (11.6-14.6); RBC Distribution Width SD 50.5 fl (35.1-43.9); Red Blood Count 4.31 M/mm3 (4.6-6.2); White Blood Count 10.4 K/mm3 (4.4-11.0)
[2017-07-19 04:56] LABS: Scan Indicated on CBC? Y/N NO
[2017-07-19 05:03] LABS: Anion Gap 9 (5-15); BUN 19 mg/dL (7-18); Calcium,Total 8.6 mg/dL (8.5-10.1); Chloride 106 mmol/L (98-107); Cholesterol 162 mg/dL (200); Creatinine, Serum 1.19 mg/dL (0.70-1.30); EST Glomerular Filtration Rate 65 mL/min (>60); Est Glom Filt Rate - Afr Amer 78 mL/min (>60); Estimated Creatinine Clearance 57.48 ml/min; Glucose 112 mg/dL (74-106); High Density Lipoprotein 38 mg/dL; Potassium 3.7 mmol/L (3.5-5.1); Sodium Level 138 mmol/L (136-145); Triglycerides 270 mg/dL; Very Low Density Lipoprotein 54 mg/dL (5-40)
--- NOTE | 2017-07-19 05:55 | EKG12_ITS ---
Test Reason : AM EKG Blood Pressure : / mmHG Vent. Rate : 052 BPM Atrial Rate : 052 BPM P-R Int : 182 ms QRS Dur : 124 ms QT Int : 464 ms P-R-T Axes : 056 -31 000 degrees QTc Int : 431 ms Sinus bradycardia Left axis deviation Right bundle branch block Inferior infarct , age undetermined Abnormal ECG When compared with ECG of 18-JUL-2017 05:19, MANUAL COMPARISON REQUIRED, DATA IS UNCONFIRMED Confirmed by SOFIYA GIBSON, LORI ([id number]), content editor SHANTELLE GAUTAM ([id number]) on 07/26/2017 1:10:09 PM Referred By: RICHARD Confirmed By:LORI ARRIAZA MD
[2017-07-19] MEDS: Aspirin 81 MG TAB.CHEW PO (08:08)
--- NOTE | 2017-07-19 09:22 | PCM.PN.CARD ---
Subjectve: Patient did very well overnight, no chest pain. CKs negative. Hemoglobin and creatinine within nominal limits. Right groin is clean/dry/intact. EKG shows normal sinus rhythm, baseline right bundle branch block, no acute changes. Telemetry negative. Objective: Vital Signs Temp Pulse Resp BP Pulse Ox 96.8 F L 66 14 123/59 H 99 07/19/17 08:00 07/19/17 08:00 07/19/17 08:00 07/19/17 08:00 07/19/17 08:00 Oxygen Flow Rate 2 Oxygen Delivery Method Room Air Weight: 200 lb 2.876 oz Body Mass Index (BMI) 30.4 Intake and Output for Last 24 Hours 07/17/17 07/18/17 07/19/17 23:59 23:59 23:59 Intake Total 425 / 425 2616 / 2616 150 / 150 Output Total 1475 / 1475 400 / 400 Balance 425 / 425 1141 / 1141 -250 / -250 General: Awake, Alert, Oriented x 3 HEENT: PERRL, EOMI, Sclera Non Icteric Neck: Supple, Good ROM, No Lymph Node Enlargement Lungs: Clear to auscultation Cardiovascular: Regular Rhythm, Normal S1, Normal S2, No Murmurs, No Rubs, No Gallops Vascular: No Carotid Bruits, Normal Femoral Pulses, Normal Radial Pulses, Normal Dorsalis Pedal Pulse, Normal Posterior Tibial Pulses Abdomen: Bowel Sounds Present, Soft, Non Tender, No HSM, No Organomegaly Extremities: No Cyanosis, No Clubbing, No edema Neurological: No Focal Motor or Sensory Deficit 07/18/17 10:50: WBC 9.2, RBC 4.59 L, Hgb 14.2, Hct 43.4, MCV 94.6 H, MCH 30.9, MCHC 32.7, RDW 14.5, RDW Differential 48.5 H, Plt Count 228, MPV 11.1 07/18/17 18:00: WBC 10.1, RBC 4.60, Hgb 13.9, Hct 43.8, MCV 95.2 H, MCH 30.2, MCHC 31.7 L, RDW 14.6, RDW Differential 50.9 H, Plt Count 237, MPV 10.9 07/18/17 23:15: WBC 9.6, RBC 4.41 L, Hgb 13.6, Hct 41.8, MCV 94.8 H, MCH 30.8, MCHC 32.5, RDW 14.6, RDW Differential 50.7 H, Plt Count 228, MPV 10.9 07/19/17 04:10: WBC 10.4, RBC 4.31 L, Hgb 13.2, Hct 40.9, MCV 94.9 H, MCH 30.6, MCHC 32.3, RDW 14.6, RDW Differential 50.5 H, Plt Count 213, MPV 10.9 07/19/17 04:10: Sodium 138, Potassium 3.7, Chloride 106, Carbon Dioxide 23.0, Anion Gap 9, BUN 19 H, Creatinine 1.19, Est GFR (MDRD) Af Amer 78, Est GFR (MDRD) Non-Af 65, BUN/Creatinine Ratio 16.0, Glucose 112 H, Calcium 8.6, Triglycerides 270 H, Cholesterol 162, LDL Cholesterol 70, VLDL Cholesterol 54 H, HDL Cholesterol 38 L Rhythm: EKG: ECHO: Stress Test: Cardiac Cath: PCI: CT Surgery: Holter monitor: EPS: PPM: CXR: Chest CT Scan: Assessment/Plan 1. Coronary artery disease: Patient is status post complex bifurcating angioplasty and stenting to his diagonal #1 and middle LAD utilizing drug-eluting stents. His CKs are negative. His right groin is clean/dry/intact. I recommend he continue baby aspirin for life and Brilinta for at least one years time. If he cannot tolerate Brilinta or if it is too costly we can switch him over to Plavix with appropriate loading in 1 month's time. Would recommend lifelong Plavix given the length of his stents, and the bifurcating nature of the 2 stents. Patient will be discharged home and follow-up with Dr. Matos going forward. Will be arranged for cardiac rehab in the near future once his groin is completely healed. 2. Hyperlipidemia: His LDL 70 and HDL is 38. Continue Lipitor. Repeat lipid profile in 6 weeks time. 3. Tobacco cessation: I had a long and thorough discussion with the patient and his regarding tobacco abuse, the patient agrees to discontinue all tobacco products. 4. Patient may be discharged home. Code Visit Inpatient E&M: 56209 Subs Hosp L2
--- NOTE | 2017-07-19 09:25 | PN.CARD_ITS ---
Subjectve: Patient did very well overnight, no chest pain. CKs negative. Hemoglobin and creatinine within nominal limits. Right groin is clean/dry/intact. EKG shows normal sinus rhythm, baseline right bundle branch block, no acute changes. Telemetry negative. Objective: Vital Signs Temp Pulse Resp BP Pulse Ox 96.8 F L 66 14 123/59 H 99 07/19/17 08:00 07/19/17 08:00 07/19/17 08:00 07/19/17 08:00 07/19/17 08:00 Oxygen Flow Rate 2 Oxygen Delivery Method Room Air Weight: 200 lb 2.876 oz Body Mass Index (BMI) 30.4 Intake and Output for Last 24 Hours 07/17/17 07/18/17 07/19/17 23:59 23:59 23:59 Intake Total 425 / 425 2616 / 2616 150 / 150 Output Total 1475 / 1475 400 / 400 Balance 425 / 425 1141 / 1141 -250 / -250 General: Awake, Alert, Oriented x 3 HEENT: PERRL, EOMI, Sclera Non Icteric Neck: Supple, Good ROM, No Lymph Node Enlargement Lungs: Clear to auscultation Cardiovascular: Regular Rhythm, Normal S1, Normal S2, No Murmurs, No Rubs, No Gallops Vascular: No Carotid Bruits, Normal Femoral Pulses, Normal Radial Pulses, Normal Dorsalis Pedal Pulse, Normal Posterior Tibial Pulses Abdomen: Bowel Sounds Present, Soft, Non Tender, No HSM, No Organomegaly Extremities: No Cyanosis, No Clubbing, No edema Neurological: No Focal Motor or Sensory Deficit 07/18/17 10:50: WBC 9.2, RBC 4.59 L, Hgb 14.2, Hct 43.4, MCV 94.6 H, MCH 30.9, MCHC 32.7, RDW 14.5, RDW Differential 48.5 H, Plt Count 228, MPV 11.1 07/18/17 18:00: WBC 10.1, RBC 4.60, Hgb 13.9, Hct 43.8, MCV 95.2 H, MCH 30.2, MCHC 31.7 L, RDW 14.6, RDW Differential 50.9 H, Plt Count 237, MPV 10.9 07/18/17 23:15: WBC 9.6, RBC 4.41 L, Hgb 13.6, Hct 41.8, MCV 94.8 H, MCH 30.8, MCHC 32.5, RDW 14.6, RDW Differential 50.7 H, Plt Count 228, MPV 10.9 07/19/17 04:10: WBC 10.4, RBC 4.31 L, Hgb 13.2, Hct 40.9, MCV 94.9 H, MCH 30.6, MCHC 32.3, RDW 14.6, RDW Differential 50.5 H, Plt Count 213, MPV 10.9 07/19/17 04:10: Sodium 138, Potassium 3.7, Chloride 106, Carbon Dioxide 23.0, Anion Gap 9, BUN 19 H, Creatinine 1.19, Est GFR (MDRD) Af Amer 78, Est GFR (MDRD ) Non-Af 65, BUN/Creatinine Ratio 16.0, Glucose 112 H, Calcium 8.6, Triglycerides 270 H, Cholesterol 162, LDL Cholesterol 70, VLDL Cholesterol 54 H , HDL Cholesterol 38 L Rhythm: EKG: ECHO: Stress Test: Cardiac Cath: PCI: CT Surgery: Holter monitor: EPS: PPM: CXR: Chest CT Scan: Assessment/Plan 1. Coronary artery disease: Patient is status post complex bifurcating angioplasty and stenting to his diagonal #1 and middle LAD utilizing drug- eluting stents. His CKs are negative. His right groin is clean/dry/intact. I recommend he continue baby aspirin for life and Brilinta for at least one years time. If he cannot tolerate Brilinta or if it is too costly we can switch him over to Plavix with appropriate loading in 1 month's time. Would recommend lifelong Plavix given the length of his stents, and the bifurcating nature of the 2 stents. Patient will be discharged home and follow-up with Dr. Matos going forward. Will be arranged for cardiac rehab in the near future once his groin is completely healed. 2. Hyperlipidemia: His LDL 70 and HDL is 38. Continue Lipitor. Repeat lipid profile in 6 weeks time. 3. Tobacco cessation: I had a long and thorough discussion with the patient and his regarding tobacco abuse, the patient agrees to discontinue all tobacco products. 4. Patient may be discharged home. Code Visit Inpatient E&M: 62307 Subs Hosp L2
--- NOTE | 2017-07-19 09:42 | CL.D_ITS ---
Patient Name: JESUS SOSA Study Date: 07/18/2017 Performing: Carson Matos MD Ht: 68 inches 173 cm : 1950 Wt: 200.9 lbs 91 kg Age: 67 Gender: male BSA: 2.05 PROCEDURE(S) PERFORMED [id number]/LV [id number] W OR WO PTCA, SINGLE CORONARY ARTERY [id number] W OR WO PTCA, EACH ADD'L ARTERY, SAME MAJOR CLINICAL PROFILE AND INDICATIONS INDICATIONS: Unstable Angina Stress/Imaging Stress/Image Study Performed: No Angina Classification Anginal Classification w/in 2 Weeks: CCS IV CAD Presentations: Unstable angina. CONCLUSIONS Elevated Left Ventricular End Diastolic Pressure Normal LV size, wall motion,and systolic function LVEF: by LV gram 65 % Mitral Valve Insufficiency Mild (partially catheter / PVC induced) RECOMMENDATIONS Risk factor modification Medical therapy Referred for immediate PCI DESCRIPTION OF PROCEDURE The patient arrived to the procedure lab. The risks and benefits of the procedure as well as a full d escription of our services here and current unavailability of surgical backup were fully explained to the patient and/or their significant other prior to the catheterization. The Timeout was completed, verifying the correct patient and procedure. The patient's procedural site was prepped and draped in the usual fashion. Local anesthetic was given subcutaneously to right groin region with Lidocaine 2%. Using a modified Seldinger technique, arterial access was obtained via the right femoral artery, a 4 Fr sheath was inserted Left Coronary Artery selective angiography was performed in multiple views us ing a 4 Fr. JL5 catheter. Right Coronary Artery selective angiography was then performed in multiple views using a 4 Fr. 3DRC catheter. Left Ventriculography was performed in MCMAHON projection using a 4 Fr . Pigtail catheter.The arterial sheath was sutured in place and capped CORONARY ANGIOGRAPHY DOMINANCE: Right Dominant LEFT HEART ASSESSMENT Left Ventricular Ejection Fraction: by LV Gram 65 % Normal LV wall motion Elevated Left Ventricular End Diastolic Pressure LVEDP: 17 mmHg LEFT MAIN: Angiographically normal LEFT ANTERIOR DECENDING ARTERY: MID LAD: S/P DX1: Eccentric: Irregular: Hazy: 85 % Stenosis DIAGONAL 1: Proximal - Long: Diffuse: Irregular: 85 % Stenosis CIRCUMFLEX ARTERY: Mild luminal irregularities RIGHT CORONARY ARTERY: Mild luminal irregularities VALVE FINDINGS: Normal Aortic Valve function Mitral Valve Insufficiency - Grade 1 (partially catheter / PVC induced) AORTIC ROOT: Angiographically normal COMPLICATIONS No Complications PROCEDURE MEDICATIONS Versed 1 mg IV Oxygen: 2 L/min via nasal cannula Heparin 6000 unit(s) IV 07/18/2017 09:35:43 Heparin 4000 unit(s) IV 07/18/2017 10:02:35 Nitro 200 mcg IC 07/18/2017 09:36:16 Nitro 200 mcg IC 07/18/2017 09:36:16 Nitro 200 mcg IC 07/18/2017 09:44:46 SUMMARY OF HEMODYNAMIC DATA Time AIR REST ECG 09:02:27 AO 97/50 (73) SA 09:13:41 LV 111/8, 20 09:20:29 LV 110/7, 17 09:20:37 LV 115/-14, 14 09:21:37 LVp 114/-15, 15 09:21:45 AOp 111/52 (77) 09:21:50 Signed By Carson Matos MD On 07/19/2017 09:41:46 Carson Matos MD
--- NOTE | 2017-07-19 10:12 | PCM.DC ---
- Discharge Diagnoses Current Active Problems: Current Active and Chronic Problems Unstable angina (Acute) Hypertension (Chronic) CKD (chronic kidney disease), stage III (Chronic) BPH (benign prostatic hyperplasia) (Chronic) Hyperlipidemia (Chronic) Hyperglycemia (Chronic) You will use the following diet at home:: Cardiac Your food should be the consistency of: Regular Discharge Activity: Return to Normal Activity Weight Bearing Status: Full weight bearing Call your doctor if you observe: Fever of 101 or Higher, Shortness of breath, Dizziness, Fainting spells, Chest pain, Increased palpitations (irregular heartbeat), Uncontrolled pain Allergies/Adverse Reactions: Allergies No Known Allergies Allergy (Verified 07/17/17 18:45) Medications to take at Discharge Aspirin [Aspir-Low] 81 mg PO DAILY 07/17/17 Cholecalciferol (Vitamin D3) [Vitamin D3] 1,000 unit PO DAILY 07/17/17 Finasteride [Proscar] 5 mg PO DAILY 07/17/17 Rosuvastatin Calcium [Crestor] 40 mg PO QHS 07/17/17 Losartan Potassium [Cozaar] 25 mg PO DAILY #90 tab 07/19/17 Metoprolol Tartrate [Lopressor (beta analia)] 12.5 mg PO BID #90 tab 07/19/17 Ticagrelor [Brilinta] 90 mg PO BID #90 tab 07/19/17 The following prescriptions were given: Losartan Potassium [Cozaar] 25 mg PO DAILY #90 tab Metoprolol Tartrate [Lopressor (beta analia)] 12.5 mg PO BID #90 tab Ticagrelor [Brilinta] 90 mg PO BID #90 tab Primary Care Physician: Willem Corrales MD [Primary Care Provider] - Please follow up with your Primary Care Physician in: 2 weeks. Please Follow Up With: Milad Casiano MD When: as per Dr. Casiano.
[2017-07-19] MEDS: TICAGRELOR 90 MG TABLET PO (10:54)
[2017-07-19] MEDS: Losartan Potassium 25 MG Tablet PO (10:55)
[2017-07-19] MEDS: Finasteride 5 MG Tablet PO (10:56)
[2017-07-19] MEDS: Metoprolol Tartrate 25 MG Tablet 12.5 MG PO (11:11)
--- NOTE | 2017-07-19 12:00 | PCM.DC.SUM ---
Discharge Date and Diagnosis - Problem List Patient Problems: Active and Suspected Problems Unstable angina (Acute) Date of Admission: 07/17/17 Date of Discharge: 07/19/17 - Primary Discharge Diagnosis Active and Suspected Problems unstable angina/CAD: Status post PTCA and drug eluting stent to diagonal branch and mid LAD. (Acute) - Secondary Discharge Diagnosis Chronic Problems Hypertension (Chronic) CKD (chronic kidney disease), stage III (Chronic) BPH (benign prostatic hyperplasia) (Chronic) Hyperlipidemia (Chronic) Hyperglycemia (Chronic) Hospital Course and Treatment Imaging Results: Clinical Impression(s) from Imaging Studies Chest X-Ray 07/17/17 19:07 IMPRESSION: Normal x-ray examination of the chest. Electronically Signed: Devin Villegas MD at 19:34 EST , Service support , Dr. Casiano, cardiology. Operations: None Procedures: Cardiac catheterization, EKG Summary of Care Provided: Patient seen and examined on the day of discharge and appeared to be stable to be discharged home. He denies any more chest pain, no shortness of breath. He has been ambulating, denied dizziness or lightheadedness upon ambulation. Vital signs are stable. - Physical Exam General: Alert, Oriented x3, Cooperative, No apparent distress. HEENT: Atraumatic, PERRLA, EOMI. Neck: Supple, No JVD, Negative Carotid Bruits, Trachea Midline, Thyroid Normal. Lungs: Clear to auscultation, Normal air movement, No rhonchi, No wheeze, No rales. Cardiovascular: Regular rate, Regular Rhythm, Normal S1, Normal S2, PMI Normal. Abdomen: Bowel Sounds Present, Soft, Non Tender, Non-Distended, No Hepato-splenomegaly. Extremities: No clubbing, No cyanosis, No edema Skin: No rashes, No breakdown Neurological: Neuro grossly intact Vital Signs are stable. Hospital course: The patient is a 67 year old M admitted because of chest pain and he was found to have unstable angina. His EKG revealed normal sinus rhythm with left axis deviation and right bundle branch block. His troponin was negative ?3. Chest x-ray showed no acute findings. Patient underwent cardiac catheterization and he was found to have 2 lesions in the diagonal branch as well as mid LAD, status post PTCA and drug eluting stent to diagonal branch and mid LAD. He was treated with aspirin, Brilinta, statins, beta blockers and losartan. After the heart cath, patient did very well and he has no more chest pain. Vital signs remained stable. His routine blood work was remarkable for creatinine of around 1.3-1.4 mg/dL, otherwise normal. This slightly elevated creatinine seemed to be chronic. His lipid profile revealed total cholesterol of 183, LDL cholesterol of 93 and HDL cholesterol 41, triglycerides were 244. Patient discharged home in a stable medical condition, discharged on aspirin, Brilinta, statins, metoprolol, losartan, continued on Crestor and Proscar, recommended follow-up with PCP in 2 weeks and follow-up with cardiology according to Dr. Casiano recommendation. Discharge Activity: Return to Normal Activity Weight Bearing Status: Full weight bearing Call your doctor if you observe: Fever of 101 or Higher, Shortness of breath, Dizziness, Fainting spells, Chest pain, Increased palpitations (irregular heartbeat), Uncontrolled pain Home Medications: Medications to take at Discharge Aspirin [Aspir-Low] 81 mg PO DAILY 07/17/17 Cholecalciferol (Vitamin D3) [Vitamin D3] 1,000 unit PO DAILY 07/17/17 Finasteride [Proscar] 5 mg PO DAILY 07/17/17 Rosuvastatin Calcium [Crestor] 40 mg PO QHS 07/17/17 Losartan Potassium [Cozaar] 25 mg PO DAILY #90 tab 07/19/17 Metoprolol Tartrate [Lopressor (beta analia)] 12.5 mg PO BID #90 tab 07/19/17 Ticagrelor [Brilinta] 90 mg PO BID #90 tab 07/19/17 Following Prescrptions Were Given to Patient: Losartan Potassium [Cozaar] 25 mg PO DAILY #90 tab Metoprolol Tartrate [Lopressor (beta analia)] 12.5 mg PO BID #90 tab Ticagrelor [Brilinta] 90 mg PO BID #90 tab Primary Care Physician: Willem Corrales MD [Primary Care Provider] - Please follow up with your Primary Care Physician in: 2 weeks. Please Follow Up With: Milad Casiano MD When: as per Dr. Casiano. Disposition: Home Minutes spent on discharge:: 32 Patient Condition:: Stable Meaningful Use Info Meaningful Use Diagnoses (Choose all that apply): None applicable Code Visit Inpatient E&M: 79931 Disch Hosp
--- NOTE | 2017-07-19 12:06 | DS.PCM_ITS ---
Discharge Date and Diagnosis - Problem List Patient Problems: Active and Suspected Problems Unstable angina (Acute) Date of Admission: 07/17/17 Date of Discharge: 07/19/17 - Primary Discharge Diagnosis Active and Suspected Problems unstable angina/CAD: Status post PTCA and drug eluting stent to diagonal branch and mid LAD. (Acute) - Secondary Discharge Diagnosis Chronic Problems Hypertension (Chronic) CKD (chronic kidney disease), stage III (Chronic) BPH (benign prostatic hyperplasia) (Chronic) Hyperlipidemia (Chronic) Hyperglycemia (Chronic) Hospital Course and Treatment Imaging Results: Clinical Impression(s) from Imaging Studies Chest X-Ray 07/17/17 19:07 IMPRESSION: Normal x-ray examination of the chest. Electronically Signed: Devin Villegas MD at 19:34 EST , Service support , Dr. Casiano, cardiology. Operations: None Procedures: Cardiac catheterization, EKG Summary of Care Provided: Patient seen and examined on the day of discharge and appeared to be stable to be discharged home. He denies any more chest pain, no shortness of breath. He has been ambulating, denied dizziness or lightheadedness upon ambulation. Vital signs are stable. - Physical Exam General: Alert, Oriented x3, Cooperative, No apparent distress. HEENT: Atraumatic, PERRLA, EOMI. Neck: Supple, No JVD, Negative Carotid Bruits, Trachea Midline, Thyroid Normal. Lungs: Clear to auscultation, Normal air movement, No rhonchi, No wheeze, No rales. Cardiovascular: Regular rate, Regular Rhythm, Normal S1, Normal S2, PMI Normal. Abdomen: Bowel Sounds Present, Soft, Non Tender, Non-Distended, No Hepato- splenomegaly. Extremities: No clubbing, No cyanosis, No edema Skin: No rashes, No breakdown Neurological: Neuro grossly intact Vital Signs are stable. Hospital course: The patient is a 67 year old M admitted because of chest pain and he was found to have unstable angina. His EKG revealed normal sinus rhythm with left axis deviation and right bundle branch block. His troponin was negative ?3. Chest x -ray showed no acute findings. Patient underwent cardiac catheterization and he was found to have 2 lesions in the diagonal branch as well as mid LAD, status post PTCA and drug eluting stent to diagonal branch and mid LAD. He was treated with aspirin, Brilinta, statins, beta blockers and losartan. After the heart cath, patient did very well and he has no more chest pain. Vital signs remained stable. His routine blood work was remarkable for creatinine of around 1.3-1.4 mg/dL, otherwise normal. This slightly elevated creatinine seemed to be chronic. His lipid profile revealed total cholesterol of 183, LDL cholesterol of 93 and HDL cholesterol 41, triglycerides were 244. Patient discharged home in a stable medical condition, discharged on aspirin, Brilinta, statins, metoprolol, losartan, continued on Crestor and Proscar, recommended follow-up with PCP in 2 weeks and follow-up with cardiology according to Dr. Casiano recommendation. Discharge Activity: Return to Normal Activity Weight Bearing Status: Full weight bearing Call your doctor if you observe: Fever of 101 or Higher, Shortness of breath, Dizziness, Fainting spells, Chest pain, Increased palpitations (irregular heartbeat), Uncontrolled pain Home Medications: Medications to take at Discharge Aspirin [Aspir-Low] 81 mg PO DAILY 07/17/17 Cholecalciferol (Vitamin D3) [Vitamin D3] 1,000 unit PO DAILY 07/17/17 Finasteride [Proscar] 5 mg PO DAILY 07/17/17 Rosuvastatin Calcium [Crestor] 40 mg PO QHS 07/17/17 Losartan Potassium [Cozaar] 25 mg PO DAILY #90 tab 07/19/17 Metoprolol Tartrate [Lopressor (beta analia)] 12.5 mg PO BID #90 tab 07/19/17 Ticagrelor [Brilinta] 90 mg PO BID #90 tab 07/19/17 Following Prescrptions Were Given to Patient: Losartan Potassium [Cozaar] 25 mg PO DAILY #90 tab Metoprolol Tartrate [Lopressor (beta analia)] 12.5 mg PO BID #90 tab Ticagrelor [Brilinta] 90 mg PO BID #90 tab Primary Care Physician: Willem Corrales MD [Primary Care Provider] - Please follow up with your Primary Care Physician in: 2 weeks. Please Follow Up With: Milad Casiano MD When: as per Dr. Casiano. Disposition: Home Minutes spent on discharge:: 32 Patient Condition:: Stable Meaningful Use Info Meaningful Use Diagnoses (Choose all that apply): None applicable Code Visit Inpatient E&M: 66398 Disch Hosp
== END 2017-07-19 11:40 | disposition home or self-care (01) | DRG 247 ==
LOC: ED 20:14 → PCU 21:02 → ICU 07-18 10:36
PROVIDERS: Internal Medicine Cardiovascular Disease; Emergency Provider Emergency Medicine; Family Provider Internal Medicine; PCP Internal Medicine; Visit Provider Hospitalist
DX: I25.110 Atherosclerotic heart disease of native coronary artery with unstable angina pectoris (principal); N18.3 Chronic kidney disease, stage 3 (moderate); E78.5 Hyperlipidemia, unspecified; I12.9 Hypertensive chronic kidney disease with stage 1 through stage 4 chronic kidney disease, or unspecified chronic kidney disease; F17.290 Nicotine dependence, other tobacco product, uncomplicated; N40.0 Benign prostatic hyperplasia without lower urinary tract symptoms; R73.9 Hyperglycemia, unspecified
CPT/HCPCS: 36415; 71045; 80048; 80061; 82550; 84484; 85025; 85027; 85347; 85610; 85730; 87641; 92928; 92929; 93005; 93458; 97802; 99152; 99153; 99285; 99406; J7030; Q9967; A4216; C1725; C1769; C1874; C1887; C9600; C9601

== ENCOUNTER → 2017-07-31 07:57 | Outpatient (CLI) | payer MEDICARE, OTHER, SELFPAY ==
--- NOTE | 2017-07-31 08:02 | PCM.CR.ITP ---
Exercise - Initial Assessment - Visit Date of Eval: 07/31/17 - initial evaluation pre-CR - Stages of Change Stages of Change:: Action - Exercise Prescription Mode:: Treadmill, Rower, Airdyne Angina with exercise?: No Target Heart Rate:: 114-121 - Hypertension Do any of the following apply?: Yes Resting Blood Pressure:: 118/70 - Intervention Home Exercise/Activity Goal:: Moderate Exercise 30 min/day x 5 days/wk - Education Goals:: Warm-up, RPE SAMANTHA Scale, S/S, Safe Exercise, Self-Monitoring - Exercise Program Goals Exercise Program Goals: Aerobic Activity >30 min Nutrition - Initial Assessment - Program Goals Nutrition Program Goals: LDL <70. Total Cholesterol <200. HDL >45. Triglycerides <150. HgbA1C <7%. BMI <25 - Visit Date of Assessment:: 07/31/17 - initial evaluation pre CR - Stages of Change Stages of Change:: Action - Lipids Total Cholesterol (mg/dL) Goal = less than 200 mg/dL: 183 HDL Cholesterol (mg/dL) Goal = less than 45 mg/dL: 41 LDL Cholesterol (mg/dL) Goal = less than 70 mg/dL: 93 Triglycerides (mg/dL) Goal = less than 150 mg/dL: 244 - Diabetes Diabetes:: No Insulin: No Non-Insulin Dependent?: No Do you monitor your blood sugar at home?: No - Weight Management Height: 5 ft 8 in Weight:: 90.907 kg Body Fat %:: 30.4 - Intervention Referral to dietitian:: Yes Referral to Diabetic Clinic:: No Will attend diet classes:: Yes - Education Gave educational materials for:: Healthy eating Psychosocial - Initial Assess - Target Goals Target Goals: Assess presence or absence of depression. Using a valid screening tool, maximizes coping skills. Positive support system - Stages of Change Stages of Change:: Action - Psychosocial Test Tool Used:: HANDS Depression Questionnaire - Intervention PS - Interventions: Yes Attend Stress Management Classes, No Referral to Mental Health, No Referral to [facility] Case Management, No Referral to Physician, No Uses Stress Management Skills - Education Gave educational materials for:: Coping techniques, Signs & symptoms of depression, Stress management, Relaxation techniques - Patient/Program Goal Preventative Medication(s):: Aspirin, JOHNNA inhibitor, Clopidogrel, Beta analia, Statin/lipid - Assistive Devices Assistive Devices:: None Fall Risk Assessed:: Yes Patient Health Questionnaire Initial Assessment 1. Little interest or pleasure in doing things: Several days 2. Feeling down, depressed, or hopeless: Not at all 3. Trouble falling or staying asleep, or sleeping too much: Not at all 4. Feeling tired or having little energy: Several days 5. Poor appetite or overeating: Several days 6. Feeling bad about yourself -- or that you are a failure or have let yourself or your family down: Not at all 7. Trouble concentrating on things, such as reading the newspaper or watching television: Not at all 8. Moving or speaking so slowly that other people could have noticed. Or the opposite - being so fidgety or restless that you have been moving around a lot more than usual: Not at all 9. Thoughts that you would be better off , or of hurting yourself in some way: Not at all How difficult have these problems made it for you to do your work, take care of things at home, or get along with other people?: Not difficult at all Total Score: 3 Knowledge Test - Check your knowledge Initial The #1 cause of in the [place] each year is:: Heart disease Which of the following is a common treatment for heart disease?: All of the above The arteries that feed the heart are called:: Coronary arteries HDL cholesterol is known as the good cholesterol.: True What food product raises blood cholesterol level the most?: Saturated fat The bad cholesterol in the blood is called:: LDL Hypertension is another word for:: High blood pressure A blood pressure reading of 148/88 is considered normal.: False Exercise will only benefit your health when your heart rate reaches a target level.: True Self-Efficacy Initial Assessment We would like to know how confident you are in doing certain activities. Please select your confidence level for:: Select your confidence level for the following using the scale 1-10 where 1 is not at all confident and 10 is totally confident. Your score is the average of all 6 responses. Fatigue: How confident are you that you can keep the fatigue caused by your disease from interfering with the things you want to do? Select Number: 8 Physical Discomfort or Pain: How confident are you that you can keep the physical discomfort or pain of your disease from interfering with the things you want to do? Select Number: 7 Emotional Distress: How confident are you that you can keep the emotional distress caused by your disease from interfering with the things you want to do? Select Number: 8 Other Symptoms or Health Problems: How confident are you that you can keep other symptoms or health problems from interfering with the things you want to do? Select Number: 8 Different Tasks and Activities: How confident are you that you can do the different tasks and activities needed to manage your health condition so as to reduce your need to see a doctor? Select Number: 8 Medication: How confident are you that you can do things other than just taking medication to reduce how much your illness affects your everyday life? Select Number: 7 Total Score:: 7 Nutrition Survey - Nutrition Survey Instructions Scoring Instructions: Scoring is as follows: Yes = 1 points. No = 0 point. Patient score that is >/=12 is considered to be at potential nutritional risk and could benefit from a referral to a registered dietitian. - Nutrition Survey Initial Have you lost >10 lbs over the past 2 months without trying?: No Are you following a special diet at home for diabetes, low fat, or low salt?: No Are you interested in meeting with a dietitian for help understanding your diet?: Yes Do you eat less than 3 meals a day?: Yes Do you eat fatty meats (vega, sausage, ribs, etc), fried foods, desserts, large amounts of salad dressings, margarine, butter, or cheese most days?: No Do you have food allergies? [Enter types in comment field]: No Do you eat in restaurants more than 3 times a week?: Yes Do you season food with salt, seasoning salt, or garlic salt?: Yes Do you used canned, boxed, frozen meals, or soups, seasoning packets?: Yes Total Score:: 5 Cardiac Rehabilitation Goals - Cardiac Rehab Goals Cardiac Rehabilitation Goals: 1. Maintain the individual as the primary focus of care. 2. To improve the patient's quality of life. 3. Identification of cardiac risk factors and provide cardiac risk factor management. 4. Enhance the psychosocial status of the patient. 5. Reconditioning enough to allow the patient to resume customary activities. 6. Control symptoms of cardiac disease - Scale Scale for measuring improvement of personal goals: Enter appropriate number in Comments. 2 = Unchanged. 3 = Slightly Better. 4 = Moderate Improvement. 5 = Met my Goal Initial Assessment Personal Goals: 30-day Re-assessment: Quit smoking (participate in smoking cessation, Improve energy level, Get back to work, or to resume activities faster, Improve knowledge of cardiac disease, Improve muscle strength and endurance, Improve diet and eating habits (eat healthier), Control risk factors (learn risk factor modification)
--- NOTE | 2017-07-31 08:02 | PCM.CR.HP2 ---
CR - History & Physical - General Arrival date:: 07/31/17 Arrival time:: 08:03 Date of Admission: 07/31/17 Referring Physician: Dr. Carson Matos Primary Diagnosis: PCI w/coronary stenting - History of Present Cardiac Event Onset Date: Enter Onset Date of cardiac illnesses in Comment field below PTCA:: Yes - 07/18/2017 Type of Symptoms:: Unstable angina pectoris; patient describes as a left dull achey pain overnight and the next day. Got up the next day still experiencing the same pain came in to the emergency room for check up. Interventions with present event:: LHC w/PCI - MICHELLE Were there any complications?: none - Medications Home Medications: Ambulatory Orders Medication Instructions Recorded Aspirin [Aspir-Low] 81 mg PO DAILY 07/17/17 Cholecalciferol (Vitamin D3) 1,000 unit PO DAILY 07/17/17 [Vitamin D3] Finasteride [Proscar] 5 mg PO DAILY 07/17/17 Rosuvastatin Calcium [Crestor] 40 mg PO QHS 07/17/17 Losartan Potassium [Cozaar] 25 mg PO DAILY #90 tab 07/19/17 Metoprolol Tartrate [Lopressor 12.5 mg PO BID #90 tab 07/19/17 (beta analia)] Ticagrelor [Brilinta] 90 mg PO BID #90 tab 07/19/17 - Allergies Allergies/Adverse Reactions: Allergies No Known Allergies Allergy (Verified 07/17/17 18:45) - Sleep Disorder Evaluation Hx of Sleep Apnea: No Do you snore loudly (louder than talking or can be heard through closed doors)?: Yes Do you often feel tired/ fatigued/ sleepy during daytime?: No Has anyone observed you stop breathing during sleep?: Yes History of Hypertension (for STOP score): Yes STOP Results: Positive Advanced Directives - Advanced Directives Power of Egg Pasteurizer: Yes Living Will: Yes Advance Directives Information Provided: No Advance Directives on File: No DNR Order?:: No Past Medical History - Problems and Co-Morbidities Problems & Co-Morbidities: Dyslipidemia, Hypertension, - - BPH benign prostatic hyperplasia - Past Medical Illness Past Medical Illness: Diabetes - considered borderline DM being monitored by PCP., Kidney/Renal Problems - chronic kidney disease Stage III. - Other Other: Vision/Eye Problems - wears glasses daily, adn also has bilateral hearing aids., Hearing Problems - Cardiology Procedures/Interventions Cardiology Procedures/Interventions: PCI w/Stenting, Heart Catheterization, Echocardiogram - Family History Summary Additional Family History: Maternal CAD/pacemaker lived to 96; paternal CAD/pacemaker lived to 100 Review of Systems - Review of Systems Hints: Right click = Denies (Slash). Left click = Reports ([place]) Review of Present Symptoms: Reports: Shortness of Breath with Exertion - some, possible related to taking the Brilinta or if simply out of shape., Dizziness/Lightheadedness - not really a dizziness or lightheadedness, but when he has experienced the shortness of breath he has felt like being in a fog or stuper., Appetite - Normal, Appetite - Special Diet - trying to eat more fruits and vegetables versus snack chips and fast-food lunches., Sleep - Normal. Denies: Shortness of Breath at Rest, Angina, Fatigue, Sexual Changes Risk Factor Assessment - Chief Complaint Chief Complaint: The patient is a 67 year old male who presents to cardiac rehab today under the care of Dr. Carson Matos. The patient was seen in our emergency room for unstable angina and subsequently had a [facility] with s/p coronary stent placement done on 07/18/2017. - Pulse Pulse Rate: 55 Pulse Rhythm: Regular - Hypertension How long have you been treated?: 20 On medication(s)?: yes Blood Pressure Sitting - Left Arm: 118/70 - Blood Cholesterol/Lipids Total Cholesterol (mg/dL) Goal = less than 200 mg/dL: 183 HDL Cholesterol (mg/dL) Goal = less than 40 mg/dL: 41 LDL Cholesterol (mg/dL) Goal = less than 70 mg/dL: 93 Triglycerides (mg/dL) Goal = less than 150 mg/dL: 244 - Diabetes Nutrition Referral for Diabetes: No - Obesity Height: 5 ft 8 in Weight:: 90.718 kg Weight in Pounds: 200.0 lbs Body Mass Index (BMI): 30.4 Nutritional Referral for Obesity: Yes - Risk Stratification Risk Guidelines: Lowest Risk: Risk Factor for Smoking, Risk Factor for Dyslipidemia, Risk Factor for Diabetes, Risk Factor for Hypertension, Risk Factor for Sedentary Lifestyle, Risk Factor for Depression, Highest Risk: Risk Factor for Obesity - For Smoking Smoking Risk Guidelines: Smoking Low Risk: None or quit greater than 6 months ago. Smoking Moderate Risk: Smoker or quit 6 months or less ago. Smoking High Risk: Smoker - For Dyslipidemia Dyslipidemia Risk Guidelines: Low Risk: Moderate Risk: High Risk: 15-25% fat 25.1-29% fat >/= 30% fat. <7% sat fat 7-9% sat fat >9% sat fat. <150 mg chol 150-299 mg chol >/= 300 mg chol. LDL <100 LDL 100-129 LDL >/= 130. Chol/HDL ratio <5.0 Chol/HDL ratio 5.0-6.0 Chol/HDL ratio >6.0. Triglycerides <100 Triglycerides 100-149 Triglycerides >/= 150 - For Diabetes Mellitus Diabetes Risk Guidelines: Diabetes Low Risk: HgA1c <6.5% and/or FBG <120. Diabetes Moderate Risk: HgA1c 6.6-7.9% and/or FBG 120-180. Diabetes High Risk: HgA1c >/= 8% and/or FBG >180 - For Obesity/Overweight Obesity/Overweight Risk Guidelines: Obesity Low Risk: BMI <25.0. Obesity Moderate Risk: BMI 25-29.9. Obesity High Risk: BMI >/= 30.0 - For Hypertension Hypertension Risk Guidelines: Hypertension Low Risk: Systolic <120 and Diastolic <80. Hypertension Moderate Risk: Systolic 120-139 and Diastolic 80-89. Hypertension High Risk: Systolic >/= 140 and Diastolic >/= 90 - For Sedentary Lifestyle Sedentary Lifestyle Risk Guidelines: Sedentary Lifestyle Low Risk: >/= 1,500 kcal/week. Sedentary Lifestyle Moderate Risk: 700-1,499 kcal/week. Sedentary Lifestyle High Risk: < 700 kcal/week - For Depression Depression Risk Guidelines: Depression Low Risk: Not clinically depressed. Depression Moderate Risk: Mildly depressed. Depression High Risk: Clinically depressed Social History - Smoking History Smoking Status: Former smoker Years Smokin - cigars and pipe Hx Tobacco Use: Yes Hx Smoking Exposure: No - Alcohol Use Alcohol Usage: Yes - occasionally/socially drink with dinner now and then - Substance Abuse Hx Substance Use: No - Occupation Occupation (List type of work in comments):: Retired - retired but still working on side for [employer] - Hobbies, Recreation, Social Activities Hobbies: Other - marble collection, trap shooter/firearms, Recreational Activities: I am able to engage in all my recreational activities Marital Status - Status Marital Status: - Current Living Arrangements Living Environment:: Family - Children Do any of your children live nearby?: No - Safety Do you feel safe in your surroundings?: Yes - Assistance Do you need any assistance at home?: no
--- NOTE | 2017-07-31 08:13 | CR.HP_ITS ---
CR - History & Physical - General Arrival date:: 07/31/17 Arrival time:: 08:03 Date of Admission: 07/31/17 Referring Physician: Dr. Carson Matos Primary Diagnosis: PCI w/coronary stenting - History of Present Cardiac Event Onset Date: Enter Onset Date of cardiac illnesses in Comment field below PTCA:: Yes - 07/18/2017 Type of Symptoms:: Unstable angina pectoris; patient describes as a left dull achey pain overnight and the next day. Got up the next day still experiencing the same pain came in to the emergency room for check up. Interventions with present event:: LHC w/PCI - MICHELLE Were there any complications?: none - Medications Home Medications: Ambulatory Orders Medication Instructions Recorded Aspirin [Aspir-Low] 81 mg PO DAILY 07/17/17 Cholecalciferol (Vitamin D3) 1,000 unit PO DAILY 07/17/17 [Vitamin D3] Finasteride [Proscar] 5 mg PO DAILY 07/17/17 Rosuvastatin Calcium [Crestor] 40 mg PO QHS 07/17/17 Losartan Potassium [Cozaar] 25 mg PO DAILY #90 tab 07/19/17 Metoprolol Tartrate [Lopressor 12.5 mg PO BID #90 tab 07/19/17 (beta analia)] Ticagrelor [Brilinta] 90 mg PO BID #90 tab 07/19/17 - Allergies Allergies/Adverse Reactions: Allergies No Known Allergies Allergy (Verified 07/17/17 18:45) - Sleep Disorder Evaluation Hx of Sleep Apnea: No Do you snore loudly (louder than talking or can be heard through closed doors)? : Yes Do you often feel tired/ fatigued/ sleepy during daytime?: No Has anyone observed you stop breathing during sleep?: Yes History of Hypertension (for STOP score): Yes STOP Results: Positive Advanced Directives - Advanced Directives Power of Jack Spinner: Yes Living Will: Yes Advance Directives Information Provided: No Advance Directives on File: No DNR Order?:: No Past Medical History - Problems and Co-Morbidities Problems & Co-Morbidities: Dyslipidemia, Hypertension, - - BPH benign prostatic hyperplasia - Past Medical Illness Past Medical Illness: Diabetes - considered borderline DM being monitored by PCP., Kidney/Renal Problems - chronic kidney disease Stage III. - Other Other: Vision/Eye Problems - wears glasses daily, adn also has bilateral hearing aids., Hearing Problems - Cardiology Procedures/Interventions Cardiology Procedures/Interventions: PCI w/Stenting, Heart Catheterization, Echocardiogram - Family History Summary Additional Family History: Maternal CAD/pacemaker lived to 96; paternal CAD/ pacemaker lived to 100 Review of Systems - Review of Systems Hints: Right click = Denies (Slash). Left click = Reports ([place]) Review of Present Symptoms: Reports: Shortness of Breath with Exertion - some, possible related to taking the Brilinta or if simply out of shape., Dizziness/ Lightheadedness - not really a dizziness or lightheadedness, but when he has experienced the shortness of breath he has felt like being in a fog or stuper., Appetite - Normal, Appetite - Special Diet - trying to eat more fruits and vegetables versus snack chips and fast-food lunches., Sleep - Normal. Denies: Shortness of Breath at Rest, Angina, Fatigue, Sexual Changes Risk Factor Assessment - Chief Complaint Chief Complaint: The patient is a 67 year old male who presents to cardiac rehab today under the care of Dr. Carson Matos. The patient was seen in our emergency room for unstable angina and subsequently had a [facility] with s/p coronary stent placement done on 07/18/2017. - Pulse Pulse Rate: 55 Pulse Rhythm: Regular - Hypertension How long have you been treated?: 20 On medication(s)?: yes Blood Pressure Sitting - Left Arm: 118/70 - Blood Cholesterol/Lipids Total Cholesterol (mg/dL) Goal = less than 200 mg/dL: 183 HDL Cholesterol (mg/dL) Goal = less than 40 mg/dL: 41 LDL Cholesterol (mg/dL) Goal = less than 70 mg/dL: 93 Triglycerides (mg/dL) Goal = less than 150 mg/dL: 244 - Diabetes Nutrition Referral for Diabetes: No - Obesity Height: 5 ft 8 in Weight:: 90.718 kg Weight in Pounds: 200.0 lbs Body Mass Index (BMI): 30.4 Nutritional Referral for Obesity: Yes - Risk Stratification Risk Guidelines: Lowest Risk: Risk Factor for Smoking, Risk Factor for Dyslipidemia, Risk Factor for Diabetes, Risk Factor for Hypertension, Risk Factor for Sedentary Lifestyle, Risk Factor for Depression, Highest Risk: Risk Factor for Obesity - For Smoking Smoking Risk Guidelines: Smoking Low Risk: None or quit greater than 6 months ago. Smoking Moderate Risk: Smoker or quit 6 months or less ago. Smoking High Risk: Smoker - For Dyslipidemia Dyslipidemia Risk Guidelines: Low Risk: Moderate Risk: High Risk: 15-25% fat 25.1-29% fat >/= 30% fat. <7% sat fat 7-9% sat fat >9% sat fat. <150 mg chol 150-299 mg chol >/= 300 mg chol. LDL <100 LDL 100-129 LDL >/= 130. Chol/HDL ratio <5.0 Chol/HDL ratio 5.0-6.0 Chol/HDL ratio >6.0. Triglycerides <100 Triglycerides 100-149 Triglycerides >/= 150 - For Diabetes Mellitus Diabetes Risk Guidelines: Diabetes Low Risk: HgA1c <6.5% and/or FBG <120. Diabetes Moderate Risk: HgA1c 6.6-7.9% and/or FBG 120-180. Diabetes High Risk: HgA1c >/= 8% and/or FBG >180 - For Obesity/Overweight Obesity/Overweight Risk Guidelines: Obesity Low Risk: BMI <25.0. Obesity Moderate Risk: BMI 25-29.9. Obesity High Risk: BMI >/= 30.0 - For Hypertension Hypertension Risk Guidelines: Hypertension Low Risk: Systolic <120 and Diastolic <80. Hypertension Moderate Risk: Systolic 120-139 and Diastolic 80-89. Hypertension High Risk: Systolic >/= 140 and Diastolic >/= 90 - For Sedentary Lifestyle Sedentary Lifestyle Risk Guidelines: Sedentary Lifestyle Low Risk: >/= 1 ,500 kcal/week. Sedentary Lifestyle Moderate Risk: 700-1,499 kcal/week. Sedentary Lifestyle High Risk: < 700 kcal/week - For Depression Depression Risk Guidelines: Depression Low Risk: Not clinically depressed. Depression Moderate Risk: Mildly depressed. Depression High Risk: Clinically depressed Social History - Smoking History Smoking Status: Former smoker Years Smokin - cigars and pipe Hx Tobacco Use: Yes Hx Smoking Exposure: No - Alcohol Use Alcohol Usage: Yes - occasionally/socially drink with dinner now and then - Substance Abuse Hx Substance Use: No - Occupation Occupation (List type of work in comments):: Retired - retired but still working on side for [employer]. - Hobbies, Recreation, Social Activities Hobbies: Other - marble collection, trap shooter/firearms, Recreational Activities: I am able to engage in all my recreational activities Marital Status - Status Marital Status: - Current Living Arrangements Living Environment:: Family - Children Do any of your children live nearby?: No - Safety Do you feel safe in your surroundings?: Yes - Assistance Do you need any assistance at home?: no
[2017-07-31 08:31] VITALS: BP 118/70; PULSE 55; BMI 30.4
[2017-07-31 09:23] VITALS: BP 118/70
== END ==
PROVIDERS: Family Provider Internal Medicine; PCP Internal Medicine; Visit Provider Internal Medicine Cardiovascular Disease
DX: Z95.5 Presence of coronary angioplasty implant and graft (principal); N18.3 Chronic kidney disease, stage 3 (moderate); E78.5 Hyperlipidemia, unspecified
CPT/HCPCS: 93798

== ENCOUNTER → 2017-08-01 11:38 | Outpatient (CLI) | payer MEDICARE, OTHER, SELFPAY ==
[2017-08-01 12:14] LABS: Hematocrit 46.1 % (40-54); Hemoglobin 15.1 g/dl (13.0-16.5); Mean Corp Hgb Conc 32.8 g/gl (32-36); Mean Corpuscular Hgb 30.9 pg (27.0-32.0); Mean Corpuscular Volume 94.5 fL (80-94); Platelet Count 369 K/mm3 (150-450); RBC Distribution Width CV 14.9 % (11.6-14.6); RBC Distribution Width SD 49.8 fl (35.1-43.9); Red Blood Count 4.88 M/mm3 (4.6-6.2); White Blood Count 11.8 K/mm3 (4.4-11.0)
[2017-08-01 12:15] LABS: Scan Indicated on CBC? Y/N NO
[2017-08-01 12:25] LABS: Anion Gap 6 (5-15); BUN 20 mg/dL (7-18); Calcium,Total 9.5 mg/dL (8.5-10.1); Chloride 102 mmol/L (98-107); Creatinine, Serum 1.54 mg/dL (0.70-1.30); EST Glomerular Filtration Rate 48 mL/min (>60); Est Glom Filt Rate - Afr Amer 58 mL/min (>60); Glucose 102 mg/dL (74-106); Potassium 4.7 mmol/L (3.5-5.1); Sodium Level 137 mmol/L (136-145)
[2017-08-01 12:42] LABS: BNP,B-Type NATRIURETIC PEPTIDE 56.2 pg/mL (0-100)
== END ==
PROVIDERS: Physician Assistant Medical; Family Provider Internal Medicine; PCP Internal Medicine; Visit Provider Internal Medicine Cardiovascular Disease
DX: I25.10 Atherosclerotic heart disease of native coronary artery without angina pectoris (principal); I25.2 Old myocardial infarction; R06.02 Shortness of breath; Z95.5 Presence of coronary angioplasty implant and graft
CPT/HCPCS: 36415; 80048; 83880; 85027; 93798

== ENCOUNTER 2017-08-08 10:15 | Outpatient (RCR) | payer MEDICARE, OTHER, SELFPAY ==
--- NOTE | 2017-08-07 09:50 | PCM.CR.ITP ---
Exercise - Initial Assessment - Stages of Change Stages of Change:: Action - Exercise Prescription Mode:: Treadmill, Rower, Airdyne Angina with exercise?: No Target Heart Rate:: 114-121 - Hypertension Do any of the following apply?: Yes - Intervention Home Exercise/Activity Goal:: Moderate Exercise 30 min/day x 5 days/wk - Education Goals:: Warm-up, RPE SAMANTHA Scale, S/S, Safe Exercise, Self-Monitoring - Exercise Program Goals Exercise Program Goals: Aerobic Activity >30 min Exercise - 30-day Assessment - Visit Date of Eval: 08/07/17 Session #:: 3 - Stages of Change Stages of Change:: Action - Exercise Prescription Mode:: Treadmill, Rower, Airdyne, NuStep Frequency (x/week): 3 Duration:: 30 METs - Progression: 0.5-1 MET as tolerated: 3.1 Target Heart Rate:: 114-121 w/ max HR 91 - Hypertension Resting Blood Pressure:: 118/68 Peak Exercise Blood Pressure:: 118/68 Medication Changes:: No - Intervention Home Exercise/Activity Goal:: Moderate Exercise 30 min/day x 5 days/wk - Education Goals:: Warm-up, RPE SAMANTHA Scale, S/S, Safe Exercise, Self-Monitoring - Exercise Program Goals Exercise Program Goals: Aerobic Activity >30 min Exercise - Final/Discharge - Hypertension Do any of the following apply?: Yes Nutrition - Initial Assessment - Program Goals Nutrition Program Goals: LDL <70. Total Cholesterol <200. HDL >45. Triglycerides <150. HgbA1C <7%. BMI <25 - Stages of Change Stages of Change:: Action - Lipids Total Cholesterol (mg/dL) Goal = less than 200 mg/dL: 183 HDL Cholesterol (mg/dL) Goal = less than 45 mg/dL: 41 LDL Cholesterol (mg/dL) Goal = less than 70 mg/dL: 93 Triglycerides (mg/dL) Goal = less than 150 mg/dL: 244 - Diabetes Diabetes:: No Non-Insulin Dependent?: No Do you monitor your blood sugar at home?: No - Weight Management Body Fat %:: 30.4 Total Score:: 5 - Intervention Referral to dietitian:: Yes Referral to Diabetic Clinic:: No Will attend diet classes:: Yes - Education Gave educational materials for:: Healthy eating Nutrition - 30-Day Assessment - Program Goals Nutrition Program Goals: LDL <70. Total Cholesterol <200. HDL >45. Triglycerides <150. HgbA1C <7%. BMI <25 - Visit Date of Eval: 08/07/17 - Stages of Change Stages of Change:: Action - Lipids Has the patient seen the dietitian?: No - Diabetes Diabetes:: No Insulin: No Non-Insulin Dependent?: No - Weight Management Weight:: 91.172 kg - Intervention Referral to dietitian:: Yes Referral to Diabetic Clinic:: No Will attend diet classes:: Yes - Education Attended class for:: Healthy eating Nutrition - 60-Day Assessment - Program Goals Nutrition Program Goals: LDL <70. Total Cholesterol <200. HDL >45. Triglycerides <150. HgbA1C <7%. BMI <25 - Diabetes Diabetes:: No Insulin: No Non-Insulin Dependent?: No - Intervention Referral to dietitian:: Yes Referral to Diabetic Clinic:: No Will attend diet classes:: Yes - Education Attended class for:: Healthy eating Nutrition - 90-Day Assessment - Program Goals Nutrition Program Goals: LDL <70. Total Cholesterol <200. HDL >45. Triglycerides <150. HgbA1C <7%. BMI <25 - Diabetes Diabetes:: No Insulin: No Non-Insulin Dependent?: No - Intervention Referral to dietitian:: Yes Referral to Diabetic Clinic:: No Will attend diet classes:: Yes - Education Attended class for:: Healthy eating Nutrition - Final Assessment - Program Goals Nutrition Program Goals: LDL <70. Total Cholesterol <200. HDL >45. Triglycerides <150. HgbA1C <7%. BMI <25 - Diabetes Diabetes:: No Insulin: No Non-Insulin Dependent?: No - Weight Management Body Fat %:: 30.4 Total Score:: 5 - Intervention Referral to dietitian:: Yes Referral to Diabetic Clinic:: No Will attend diet classes:: Yes Tobacco - 30-Day Assessment - Program Goals Tobacco Program Goals: Complete smoking cessation. Attend education classes. Improve Knowledge Test score - Stage of Change Stages of Change:: Action - Learning Barriers Learning Barriers: Participates in education - Family Support Do you have family support?: Yes - Tobacco Use Tobacco Use: Non-smoker Do you use smokeless tobacco?: No - Intervention Smoking Cessation Referral:: No Individual Education/Counseling:: No Education Schedule Given:: Yes - Education Attended class for:: Coronary artery disease, Risk factors, Sexuality, Medical compliance, Cardiac A&P, Angina signs & symptoms Psychosocial - Initial Assess - Target Goals Target Goals: Assess presence or absence of depression. Using a valid screening tool, maximizes coping skills. Positive support system - Stages of Change Stages of Change:: Action - Psychosocial Test Tool Used:: HANDS Depression Questionnaire Self-Efficacy Score:: 7 - Intervention PS - Interventions: Yes Attend Stress Management Classes, No Referral to Mental Health, No Referral to [facility] Case Management, No Referral to Physician, No Uses Stress Management Skills - Education Gave educational materials for:: Coping techniques, Signs & symptoms of depression, Stress management, Relaxation techniques - Patient/Program Goal Preventative Medication(s):: Aspirin, JOHNNA inhibitor, Clopidogrel, Beta analia, Statin/lipid - Assistive Devices Assistive Devices:: None Fall Risk Assessed:: Yes Psychosocial - 30-Day Assess - Target Goals Target Goals: Assess presence or absence of depression. Using a valid screening tool, maximizes coping skills. Positive support system - Stages of Change Stages of Change:: Action - Psychosocial Test Tool Used:: HANDS Depression Questionnaire Self-Efficacy Score:: 7 - Intervention PS - Interventions: Yes Attend Stress Management Classes, Yes Uses Stress Management Skills, No Referral to Mental Health, No Referral to [facility] Case Management, No Referral to Physician - Education Attended classes for:: Coping techniques, Signs & symptoms of depression, Stress management, Relaxation techniques - Patient/Program Goal Preventative Medication(s):: Aspirin, JOHNNA inhibitor, Clopidogrel, Beta analia, Statin/lipid - Assistive Devices Assistive Devices:: None Fall Risk Assessed:: Yes Psychosocial - 60-Day Assess - Target Goals Target Goals: Assess presence or absence of depression. Using a valid screening tool, maximizes coping skills. Positive support system - Psychosocial Test Tool Used:: HANDS Depression Questionnaire Self-Efficacy Score:: 7 - Education Attended classes for:: Coping techniques, Signs & symptoms of depression, Stress management, Relaxation techniques - Patient/Program Goal Preventative Medication(s):: Aspirin, JOHNNA inhibitor, Clopidogrel, Beta analia, Statin/lipid - Assistive Devices Assistive Devices:: None Fall Risk Assessed:: Yes Psychosocial - 90-Day Assess - Target Goals Target Goals: Assess presence or absence of depression. Using a valid screening tool, maximizes coping skills. Positive support system - Psychosocial Test Tool Used:: HANDS Depression Questionnaire Self-Efficacy Score:: 7 - Education Attended classes for:: Coping techniques, Signs & symptoms of depression, Stress management, Relaxation techniques - Patient/Program Goal Preventative Medication(s):: Aspirin, JOHNNA inhibitor, Clopidogrel, Beta analia, Statin/lipid - Assistive Devices Assistive Devices:: None Fall Risk Assessed:: Yes Psychosocial - Final Assessmen - Target Goals Target Goals: Assess presence or absence of depression. Using a valid screening tool, maximizes coping skills. Positive support system - Psychosocial Test Tool Used:: HANDS Depression Questionnaire Self-Efficacy Score:: 7 - Patient/Program Goal Preventative Medication(s):: Aspirin, JOHNNA inhibitor, Clopidogrel, Beta analia, Statin/lipid - Assistive Devices Assistive Devices:: None Fall Risk Assessed:: Yes Patient Health Questionnaire 30-Day Re-eval Assessment 1. Little interest or pleasure in doing things: Several days 2. Feeling down, depressed, or hopeless: Not at all 3. Trouble falling or staying asleep, or sleeping too much: Not at all 4. Feeling tired or having little energy: Several days 5. Poor appetite or overeating: Several days 6. Feeling bad about yourself -- or that you are a failure or have let yourself or your family down: Not at all 7. Trouble concentrating on things, such as reading the newspaper or watching television: Not at all 8. Moving or speaking so slowly that other people could have noticed. Or the opposite - being so fidgety or restless that you have been moving around a lot more than usual: Not at all 9. Thoughts that you would be better off , or of hurting yourself in some way: Not at all How difficult have these problems made it for you to do your work, take care of things at home, or get along with other people?: Not difficult at all Total Score: 3 Self-Efficacy 30-Day Re-eval Assessment We would like to know how confident you are in doing certain activities. Please select your confidence level for:: Select your confidence level for the following using the scale 1-10 where 1 is not at all confident and 10 is totally confident. Your score is the average of all 6 responses. Fatigue: How confident are you that you can keep the fatigue caused by your disease from interfering with the things you want to do? Select Number: 7 Physical Discomfort or Pain: How confident are you that you can keep the physical discomfort or pain of your disease from interfering with the things you want to do? Select Number: 8 Emotional Distress: How confident are you that you can keep the emotional distress caused by your disease from interfering with the things you want to do? Select Number: 8 Other Symptoms or Health Problems: How confident are you that you can keep other symptoms or health problems from interfering with the things you want to do? Select Number: 8 Different Tasks and Activities: How confident are you that you can do the different tasks and activities needed to manage your health condition so as to reduce your need to see a doctor? Select Number: 8 Medication: How confident are you that you can do things other than just taking medication to reduce how much your illness affects your everyday life? Select Number: 7 Total Score:: 7
[2017-08-07 09:53] VITALS: BP 118/68
== END 2017-08-08 23:59 ==
LOC: CR 10:15
PROVIDERS: Family Provider Internal Medicine; PCP Internal Medicine; Visit Provider Internal Medicine Cardiovascular Disease
DX: Z95.5 Presence of coronary angioplasty implant and graft (principal); I25.10 Atherosclerotic heart disease of native coronary artery without angina pectoris; I25.2 Old myocardial infarction
CPT/HCPCS: 93798

== ENCOUNTER 2017-08-29 11:27 | Outpatient (RCR) | payer MEDICARE, OTHER, SELFPAY | END 2017-09-08 23:59 | LOC: NS 11:27 | PROVIDERS: Family Provider Internal Medicine; PCP Internal Medicine; Visit Provider Internal Medicine Cardiovascular Disease | DX: N18.3 Chronic kidney disease, stage 3 (moderate) (principal); E78.5 Hyperlipidemia, unspecified; I25.10 Atherosclerotic heart disease of native coronary artery without angina pectoris; I25.5 Ischemic cardiomyopathy; Z71.3 Dietary counseling and surveillance; Z95.5 Presence of coronary angioplasty implant and graft | CPT/HCPCS: 93798; 97802 ==

== ENCOUNTER → 2017-09-03 09:43 | Outpatient (CLI) | payer MEDICARE, OTHER, SELFPAY ==
[2017-09-03 11:05] LABS: Anion Gap 4 (5-15); BUN 21 mg/dL (7-18); BUN/Creat Ratio 18.3 RATIO (10-20); Calcium,Total 9.1 mg/dL (8.5-10.1); Chloride 103 mmol/L (98-107); Creatinine, Serum 1.15 mg/dL (0.70-1.30); EST Glomerular Filtration Rate 67 mL/min (>60); Est Glom Filt Rate - Afr Amer 81 mL/min (>60); Glucose 100 mg/dL (74-106); Potassium 4.5 mmol/L (3.5-5.1); Sodium Level 138 mmol/L (136-145)
== END ==
PROVIDERS: Family Provider Internal Medicine; PCP Internal Medicine; Visit Provider Physician Assistant Medical
DX: I25.10 Atherosclerotic heart disease of native coronary artery without angina pectoris (principal); I12.9 Hypertensive chronic kidney disease with stage 1 through stage 4 chronic kidney disease, or unspecified chronic kidney disease; N18.3 Chronic kidney disease, stage 3 (moderate); E78.5 Hyperlipidemia, unspecified
CPT/HCPCS: 36415; 80048

== ENCOUNTER 2017-09-07 10:15 | Outpatient (RCR) | payer MEDICARE, OTHER, SELFPAY ==
[2017-08-09 01:15] VITALS: BP 118/68
[2017-09-03 14:55] VITALS: BP 112/64
--- NOTE | 2017-09-03 14:56 | CR.ITP_ITS ---
Exercise - Initial Assessment - Stages of Change Stages of Change:: Action - Exercise Prescription Mode:: Treadmill, Rower, Airdyne Angina with exercise?: No Target Heart Rate:: 114-121 - Hypertension Do any of the following apply?: Yes - Intervention Home Exercise/Activity Goal:: Moderate Exercise 30 min/day x 5 days/wk - Education Goals:: Warm-up, RPE SAMANTHA Scale, S/S, Safe Exercise, Self-Monitoring - Exercise Program Goals Exercise Program Goals: Aerobic Activity >30 min Exercise - 30-day Assessment - Visit Date of Eval: 08/07/17 - Stages of Change Stages of Change:: Action - Exercise Prescription Mode:: Treadmill, Rower, Airdyne, NuStep Frequency (x/week): 3 Duration:: 30 METs - Progression: 0.5-1 MET as tolerated: 3.1 Target Heart Rate:: 114-121 w/ max HR 91 - Intervention Home Exercise/Activity Goal:: Moderate Exercise 30 min/day x 5 days/wk - Education Goals:: Warm-up, RPE SAMANTHA Scale, S/S, Safe Exercise, Self-Monitoring - Exercise Program Goals Exercise Program Goals: Aerobic Activity >30 min Exercise - 60-Day Assessment - Visit Date of Eval: 09/03/17 - 08/03/2017-08/31/2017 Session #:: 13 - Stages of Change Stages of Change:: Action - Exercise Prescription Mode:: Treadmill, Airdyne, NuStep Frequency (x/week): 3 Duration:: 30 METs: 4 Target Heart Rate:: 114-121 Max HR 91 - Hypertension Resting Blood Pressure:: 112/64 Peak Exercise Blood Pressure:: 112/64 Medication Changes:: Yes - off brilinta and starting plavix 75 mg 08/17/17 - Intervention Home Exercise/Activity Goal:: Sitting Time <3 hrs/day - Education Goals:: Warm-up, RPE SAMANTHA Scale, S/S, Safe Exercise, Self-Monitoring - Exercise Program Goals Exercise Program Goals: Aerobic Activity >30 min, B/P <140/90 Exercise - Final/Discharge - Hypertension Do any of the following apply?: Yes Nutrition - Initial Assessment - Program Goals Nutrition Program Goals: LDL <70. Total Cholesterol <200. HDL >45. Triglycerides <150. HgbA1C <7%. BMI <25 - Stages of Change Stages of Change:: Action - Lipids Total Cholesterol (mg/dL) Goal = less than 200 mg/dL: 183 HDL Cholesterol (mg/dL) Goal = less than 45 mg/dL: 41 LDL Cholesterol (mg/dL) Goal = less than 70 mg/dL: 93 Triglycerides (mg/dL) Goal = less than 150 mg/dL: 244 - Diabetes Diabetes:: No Non-Insulin Dependent?: No Do you monitor your blood sugar at home?: No - Weight Management Body Fat %:: 30.4 Total Score:: 5 - Intervention Referral to dietitian:: Yes Referral to Diabetic Clinic:: No Will attend diet classes:: Yes - Education Gave educational materials for:: Healthy eating Nutrition - 30-Day Assessment - Program Goals Nutrition Program Goals: LDL <70. Total Cholesterol <200. HDL >45. Triglycerides <150. HgbA1C <7%. BMI <25 - Stages of Change Stages of Change:: Action - Lipids Has the patient seen the dietitian?: No - Diabetes Diabetes:: No Non-Insulin Dependent?: No - Intervention Referral to dietitian:: Yes Referral to Diabetic Clinic:: No Will attend diet classes:: Yes - Education Attended class for:: Healthy eating Nutrition - 60-Day Assessment - Program Goals Nutrition Program Goals: LDL <70. Total Cholesterol <200. HDL >45. Triglycerides <150. HgbA1C <7%. BMI <25 - Visit Date of Eval: 09/03/17 - 08/03/17-08/31/17 - Stages of Change Stages of Change:: Action - Lipids Has the patient seen the dietitian?: No - Diabetes Diabetes:: No Non-Insulin Dependent?: No - Weight Management Weight:: 90.945 kg - Intervention Referral to dietitian:: Yes Referral to Diabetic Clinic:: No Will attend diet classes:: Yes - Education Attended class for:: Signs & symptoms of hypoglycemia, Signs & symptoms of hyperglycemia, Relate diabetes to coronary artery disease, Healthy eating Nutrition - 90-Day Assessment - Program Goals Nutrition Program Goals: LDL <70. Total Cholesterol <200. HDL >45. Triglycerides <150. HgbA1C <7%. BMI <25 - Lipids Has the patient seen the dietitian?: No - Diabetes Diabetes:: No Non-Insulin Dependent?: No - Intervention Referral to dietitian:: Yes Referral to Diabetic Clinic:: No Will attend diet classes:: Yes - Education Attended class for:: Healthy eating Nutrition - Final Assessment - Program Goals Nutrition Program Goals: LDL <70. Total Cholesterol <200. HDL >45. Triglycerides <150. HgbA1C <7%. BMI <25 - Diabetes Diabetes:: No Non-Insulin Dependent?: No - Weight Management Body Fat %:: 30.4 Total Score:: 5 - Intervention Referral to dietitian:: Yes Referral to Diabetic Clinic:: No Will attend diet classes:: Yes Tobacco - Initial Assessment - Program Goals Tobacco Program Goals: Complete smoking cessation. Attend education classes. Improve Knowledge Test score - Family Support Do you have family support?: Yes - Tobacco Use Do you use smokeless tobacco?: No - Intervention Smoking Cessation Referral:: No Individual Education/Counseling:: No Education Schedule Given:: Yes - Education Gave educational material for:: Coronary artery disease, Risk factors, Sexuality , Medical compliance, Cardiac A&P, Angina signs & symptoms Tobacco - 30-Day Assessment - Program Goals Tobacco Program Goals: Complete smoking cessation. Attend education classes. Improve Knowledge Test score - Stage of Change Stages of Change:: Action - Learning Barriers Learning Barriers: Participates in education - Family Support Do you have family support?: Yes - Tobacco Use Tobacco Use: Non-smoker Do you use smokeless tobacco?: No - Intervention Smoking Cessation Referral:: No Individual Education/Counseling:: No Education Schedule Given:: Yes - Education Attended class for:: Coronary artery disease, Risk factors, Sexuality, Medical compliance, Cardiac A&P, Angina signs & symptoms Tobacco - 60-Day Assessment - Program Goals Tobacco Program Goals: Complete smoking cessation. Attend education classes. Improve Knowledge Test score - Stage of Change Stages of Change:: Action - Learning Barriers Learning Barriers: Participates in education - Family Support Do you have family support?: Yes - Tobacco Use Tobacco Use: Non-smoker Do you use smokeless tobacco?: No - Intervention Smoking Cessation Referral:: No Individual Education/Counseling:: No Education Schedule Given:: Yes - Education Attended class for:: Coronary artery disease, Risk factors, Sexuality, Medical compliance, Cardiac A&P, Angina signs & symptoms Tobacco - 90-Day Assessment - Program Goals Tobacco Program Goals: Complete smoking cessation. Attend education classes. Improve Knowledge Test score - Family Support Do you have family support?: Yes - Tobacco Use Tobacco Use: Non-smoker Do you use smokeless tobacco?: No - Intervention Smoking Cessation Referral:: No Individual Education/Counseling:: No Education Schedule Given:: Yes - Education Attended class for:: Coronary artery disease, Risk factors, Sexuality, Medical compliance, Cardiac A&P, Angina signs & symptoms Tobacco - Final Assessment - Program Goals Tobacco Program Goals: Complete smoking cessation. Attend education classes. Improve Knowledge Test score - Family Support Do you have family support?: Yes - Tobacco Use Tobacco Use: Non-smoker Do you use smokeless tobacco?: No - Intervention Smoking Cessation Referral:: No Individual Education/Counseling:: No Education Schedule Given:: Yes Psychosocial - Initial Assess - Target Goals Target Goals: Assess presence or absence of depression. Using a valid screening tool, maximizes coping skills. Positive support system - Stages of Change Stages of Change:: Action - Psychosocial Test Tool Used:: HANDS Depression Questionnaire Self-Efficacy Score:: 7 - Education Gave educational materials for:: Coping techniques, Signs & symptoms of depression, Stress management, Relaxation techniques - Patient/Program Goal Preventative Medication(s):: Aspirin, JOHNNA inhibitor, Clopidogrel, Beta analia, Statin/lipid - Assistive Devices Assistive Devices:: None Fall Risk Assessed:: Yes Psychosocial - 30-Day Assess - Target Goals Target Goals: Assess presence or absence of depression. Using a valid screening tool, maximizes coping skills. Positive support system - Stages of Change Stages of Change:: Action - Psychosocial Test Tool Used:: HANDS Depression Questionnaire Self-Efficacy Score:: 7 - Patient/Program Goal Preventative Medication(s):: Aspirin, JOHNNA inhibitor, Clopidogrel, Beta analia, Statin/lipid - Assistive Devices Assistive Devices:: None Fall Risk Assessed:: Yes Psychosocial - 60-Day Assess - Target Goals Target Goals: Assess presence or absence of depression. Using a valid screening tool, maximizes coping skills. Positive support system - Stages of Change Stages of Change:: Action - Psychosocial Test Tool Used:: HANDS Depression Questionnaire Self-Efficacy Score:: 7 - Intervention PS - Interventions: Yes Attend Stress Management Classes, Yes Uses Stress Management Skills, No Referral to Mental Health, No Referral to [facility] Case Management, No Referral to Physician - Education Attended classes for:: Coping techniques, Signs & symptoms of depression, Stress management, Relaxation techniques - Patient/Program Goal Preventative Medication(s):: Aspirin, JOHNNA inhibitor, Clopidogrel, Beta analia, Statin/lipid - Assistive Devices Assistive Devices:: None Fall Risk Assessed:: Yes Psychosocial - 90-Day Assess - Target Goals Target Goals: Assess presence or absence of depression. Using a valid screening tool, maximizes coping skills. Positive support system - Psychosocial Test Tool Used:: HANDS Depression Questionnaire Self-Efficacy Score:: 7 - Education Attended classes for:: Coping techniques, Signs & symptoms of depression, Stress management, Relaxation techniques - Patient/Program Goal Preventative Medication(s):: Aspirin, JOHNNA inhibitor, Clopidogrel, Beta analia, Statin/lipid - Assistive Devices Assistive Devices:: None Fall Risk Assessed:: Yes Psychosocial - Final Assessmen - Target Goals Target Goals: Assess presence or absence of depression. Using a valid screening tool, maximizes coping skills. Positive support system - Psychosocial Test Tool Used:: HANDS Depression Questionnaire Self-Efficacy Score:: 7 - Patient/Program Goal Preventative Medication(s):: Aspirin, JOHNNA inhibitor, Clopidogrel, Beta analia, Statin/lipid - Assistive Devices Assistive Devices:: None Fall Risk Assessed:: Yes Patient Health Questionnaire 60-Day Re-eval Assessment 1. Little interest or pleasure in doing things: Not at all 2. Feeling down, depressed, or hopeless: Not at all 3. Trouble falling or staying asleep, or sleeping too much: Not at all 4. Feeling tired or having little energy: Several days 6. Feeling bad about yourself -- or that you are a failure or have let yourself or your family down: Not at all 7. Trouble concentrating on things, such as reading the newspaper or watching television: Not at all 8. Moving or speaking so slowly that other people could have noticed. Or the opposite - being so fidgety or restless that you have been moving around a lot more than usual: Not at all 9. Thoughts that you would be better off , or of hurting yourself in some way: Not at all How difficult have these problems made it for you to do your work, take care of things at home, or get along with other people?: Not difficult at all Total Score: 1 Self-Efficacy 60-Day Re-eval Assessment We would like to know how confident you are in doing certain activities. Please select your confidence level for:: Select your confidence level for the following using the scale 1-10 where 1 is not at all confident and 10 is totally confident. Your score is the average of all 6 responses. Fatigue: How confident are you that you can keep the fatigue caused by your disease from interfering with the things you want to do? Select Number: 9 Physical Discomfort or Pain: How confident are you that you can keep the physical discomfort or pain of your disease from interfering with the things you want to do? Select Number: 9 Emotional Distress: How confident are you that you can keep the emotional distress caused by your disease from interfering with the things you want to do? Select Number: 9 Other Symptoms or Health Problems: How confident are you that you can keep other symptoms or health problems from interfering with the things you want to do? Select Number: 9 Different Tasks and Activities: How confident are you that you can do the different tasks and activities needed to manage your health condition so as to reduce your need to see a doctor? Select Number: 9 Medication: How confident are you that you can do things other than just taking medication to reduce how much your illness affects your everyday life? Select Number: 9 Total Score:: 9 Cardiac Rehabilitation Goals - Cardiac Rehab Goals Cardiac Rehabilitation Goals: 1. Maintain the individual as the primary focus of care. 2. To improve the patient's quality of life. 3. Identification of cardiac risk factors and provide cardiac risk factor management. 4. Enhance the psychosocial status of the patient. 5. Reconditioning enough to allow the patient to resume customary activities. 6. Control symptoms of cardiac disease - Scale Scale for measuring improvement of personal goals: Enter appropriate number in Comments. 2 = Unchanged. 3 = Slightly Better. 4 = Moderate Improvement. 5 = Met my Goal 60-Day Re-eval Assessment Personal Goals: 60-day Re-assessment: Improve energy level, Participate in home exercise program, Get back to work, or to resume activities faster, Improve muscle strength and endurance
== END 2017-09-08 23:59 ==
LOC: CR 10:15
PROVIDERS: Family Provider Internal Medicine; PCP Internal Medicine; Visit Provider Internal Medicine Cardiovascular Disease
DX: Z95.5 Presence of coronary angioplasty implant and graft (principal); I25.10 Atherosclerotic heart disease of native coronary artery without angina pectoris; I25.2 Old myocardial infarction; I12.9 Hypertensive chronic kidney disease with stage 1 through stage 4 chronic kidney disease, or unspecified chronic kidney disease; N18.3 Chronic kidney disease, stage 3 (moderate); E78.5 Hyperlipidemia, unspecified
CPT/HCPCS: 36415; 80048; 93798

== ENCOUNTER → 2017-09-12 15:21 | Outpatient (CLI) | payer MEDICARE, OTHER, SELFPAY ==
[2017-09-12 18:20] LABS: AST(SGOT) 103 U/L (15-37); Alanine Aminotransfer ALT/SGPT 131 U/L (16-61); Albumin, Serum 3.9 g/dL (3.2-5.0); Alkaline Phosphatase 296 U/L (45-117); Bilirubin, Direct 0.27 mg/dL (0.00-0.30); Ferritin 639 ng/mL (26-388); Globulin 3.8 g/dL (2.2-4.2); Protein, Total 7.7 g/dL (6.4-8.2)
[2017-09-14 09:10] LABS: HEPATITIS B SURFACE AG Negative (Negative); Hep C Antibodies 0.1 s/co ratio (0.0-0.9)
[2017-09-14 16:10] LABS: ANTINUCLEAR ANTIBODIES DIRECT Negative (Negative)
[2017-09-15 09:17] LABS: Alpha Antitrypsin Serum 121 mg/dL (90-200); Anti-Mitochondrial AB <20.0 Units (0.0-20.0)
== END ==
PROVIDERS: Family Provider Internal Medicine; PCP Internal Medicine; Visit Provider Internal Medicine Gastroenterology
DX: K75.9 Inflammatory liver disease, unspecified (principal); I25.10 Atherosclerotic heart disease of native coronary artery without angina pectoris; I25.2 Old myocardial infarction; Z95.5 Presence of coronary angioplasty implant and graft
CPT/HCPCS: 36415; 80076; 82103; 82728; 83516; 86038; 86803; 87340; 93798

== ENCOUNTER 2017-09-21 11:57 | Outpatient (RCR) | payer MEDICARE, OTHER, SELFPAY | END 2017-10-08 23:59 | LOC: NS 11:57 | PROVIDERS: Family Provider Internal Medicine; PCP Internal Medicine; Visit Provider Internal Medicine Cardiovascular Disease | DX: N18.3 Chronic kidney disease, stage 3 (moderate) (principal); E78.5 Hyperlipidemia, unspecified; I25.10 Atherosclerotic heart disease of native coronary artery without angina pectoris; I25.5 Ischemic cardiomyopathy; Z71.3 Dietary counseling and surveillance; Z95.5 Presence of coronary angioplasty implant and graft; I25.2 Old myocardial infarction | CPT/HCPCS: 93798; 97803 ==

== ENCOUNTER 2017-10-08 10:15 | Outpatient (RCR) | payer MEDICARE, OTHER, SELFPAY ==
[2017-09-09 01:01] VITALS: BP 112/64
[2017-10-01 11:49] VITALS: BP 116/58; BP 120/80
--- NOTE | 2017-10-01 11:50 | CR.ITP_ITS ---
General Information - General Information Admitting Diagnosis: PCI with coronary stenting - Education/Goals Barriers to Learning: None Individual Counselin-Day Assessment: High Blood Pressure Cardiac Rehabilitation Goals: 1. Maintain the individual as the primary focus of care. 2. To improve the patient's quality of life. 3. Identification of cardiac risk factors and provide cardiac risk factor management. 4. Enhance the psychosocial status of the patient. 5. Reconditioning enough to allow the patient to resume customary activities. 6. Control symptoms of cardiac disease Scale for measuring improvement of personal goals: Enter appropriate number in Comments. 2 = Unchanged. 3 = Slightly Better. 4 = Moderate Improvement. 5 = Met my Goal Personal Goals: 60-day Re-assessment: Improve energy level, Participate in home exercise program, Improve knowledge of cardiac disease, Improve muscle strength and endurance Exercise - 90-Day Assessment - Visit Date of Eval: 10/01/17 Session #:: 25 - Stages of Change Stages of Change:: Action - Exercise Prescription Mode:: Treadmill, Airdyne, NuStep Frequency (x/week): 3 Duration:: 30 METs: 6 Target Heart Rate:: 121-129 - Hypertension Resting Blood Pressure:: 116/58 Peak Exercise Blood Pressure:: 120/80 Medication Changes:: No - Intervention Home Exercise/Activity Goal:: Sitting Time <3 hrs/day - Education Goals:: Warm-up, RPE SAMANTHA Scale, S/S, Safe Exercise, Self-Monitoring - Exercise Program Goals Exercise Program Goals: Aerobic Activity >30 min, B/P <140/90 Nutrition - Initial Assessment - Program Goals Nutrition Program Goals: LDL <70. Total Cholesterol <200. HDL >45. Triglycerides <150. HgbA1C <7%. BMI <25 - Diabetes Do you monitor your blood sugar at home?: No Nutrition - 90-Day Assessment - Program Goals Nutrition Program Goals: LDL <70. Total Cholesterol <200. HDL >45. Triglycerides <150. HgbA1C <7%. BMI <25 - Visit Date of Eval: 10/01/17 - Stages of Change Stages of Change:: Action - Lipids Has the patient seen the dietitian?: No - Diabetes Diabetes:: No - Weight Management Weight:: 91.852 kg - Intervention Referral to dietitian:: No Referral to Diabetic Clinic:: No Will attend diet classes:: Yes - Education Attended class for:: Signs & symptoms of hyperglycemia, Relate diabetes to coronary artery disease, Healthy eating Tobacco - 90-Day Assessment - Program Goals Tobacco Program Goals: Complete smoking cessation. Attend education classes. Improve Knowledge Test score - Stage of Change Stages of Change:: Action - Learning Barriers Learning Barriers: Participates in education - Family Support Do you have family support?: Yes - Tobacco Use Tobacco Use: Non-smoker Do you use smokeless tobacco?: No - Intervention Smoking Cessation Referral:: No Individual Education/Counseling:: No Education Schedule Given:: Yes - Education Attended class for:: Tobacco triggers, Coronary artery disease, Risk factors, Sexuality, Medical compliance, Cardiac A&P, Angina signs & symptoms Psychosocial - Initial Assess - Target Goals Target Goals: Assess presence or absence of depression. Using a valid screening tool, maximizes coping skills. Positive support system - Psychosocial Test Tool Used:: HANDS Depression Questionnaire - Assistive Devices Fall Risk Assessed:: Yes Psychosocial - 90-Day Assess - Target Goals Target Goals: Assess presence or absence of depression. Using a valid screening tool, maximizes coping skills. Positive support system - Stages of Change Stages of Change:: Action - Psychosocial Test Tool Used:: HANDS Depression Questionnaire - Intervention PS - Interventions: Yes Attend Stress Management Classes, Yes Uses Stress Management Skills, No Referral to Mental Health, No Referral to [facility] Case Management, No Referral to Physician - Education Attended classes for:: Coping techniques, Signs & symptoms of depression, Stress management, Relaxation techniques - Assistive Devices Assistive Devices:: None Fall Risk Assessed:: Yes Patient Health Questionnaire 90-Day Re-eval Assessment 1. Little interest or pleasure in doing things: Several days 2. Feeling down, depressed, or hopeless: Not at all 3. Trouble falling or staying asleep, or sleeping too much: Not at all 4. Feeling tired or having little energy: Several days 5. Poor appetite or overeating: Several days 6. Feeling bad about yourself -- or that you are a failure or have let yourself or your family down: Not at all 7. Trouble concentrating on things, such as reading the newspaper or watching television: Not at all 8. Moving or speaking so slowly that other people could have noticed. Or the opposite - being so fidgety or restless that you have been moving around a lot more than usual: Not at all 9. Thoughts that you would be better off , or of hurting yourself in some way: Not at all How difficult have these problems made it for you to do your work, take care of things at home, or get along with other people?: Not difficult at all Total Score: 3 Self-Efficacy 90-Day Re-eval Assessment We would like to know how confident you are in doing certain activities. Please select your confidence level for:: Select your confidence level for the following using the scale 1-10 where 1 is not at all confident and 10 is totally confident. Your score is the average of all 6 responses. Fatigue: How confident are you that you can keep the fatigue caused by your disease from interfering with the things you want to do? Select Number: 8 Physical Discomfort or Pain: How confident are you that you can keep the physical discomfort or pain of your disease from interfering with the things you want to do? Select Number: 8 Emotional Distress: How confident are you that you can keep the emotional distress caused by your disease from interfering with the things you want to do? Select Number: 8 Other Symptoms or Health Problems: How confident are you that you can keep other symptoms or health problems from interfering with the things you want to do? Select Number: 8 Different Tasks and Activities: How confident are you that you can do the different tasks and activities needed to manage your health condition so as to reduce your need to see a doctor? Select Number: 8 Medication: How confident are you that you can do things other than just taking medication to reduce how much your illness affects your everyday life? Select Number: 8 Total Score:: 8
== END 2017-10-08 23:59 ==
LOC: CR 10:15
PROVIDERS: Family Provider Internal Medicine; PCP Internal Medicine; Visit Provider Internal Medicine Cardiovascular Disease
DX: I25.10 Atherosclerotic heart disease of native coronary artery without angina pectoris (principal); Z95.5 Presence of coronary angioplasty implant and graft; I25.2 Old myocardial infarction
CPT/HCPCS: 93798

== ENCOUNTER → 2017-10-10 11:40 | Outpatient (CLI) | payer MEDICARE, OTHER, SELFPAY ==
[2017-10-10 14:48] LABS: AST(SGOT) 86 U/L (15-37); Alanine Aminotransfer ALT/SGPT 98 U/L (16-61); Albumin, Serum 3.7 g/dL (3.2-5.0); Alkaline Phosphatase 228 U/L (45-117); Bilirubin, Direct 0.22 mg/dL (0.00-0.30); Globulin 3.6 g/dL (2.2-4.2); Protein, Total 7.3 g/dL (6.4-8.2)
== END ==
PROVIDERS: Family Provider Internal Medicine; PCP Internal Medicine; Visit Provider Internal Medicine Gastroenterology
DX: I25.10 Atherosclerotic heart disease of native coronary artery without angina pectoris (principal); K75.9 Inflammatory liver disease, unspecified; K76.0 Fatty (change of) liver, not elsewhere classified; R94.5 Abnormal results of liver function studies
CPT/HCPCS: 36415; 80076; 93798

== ENCOUNTER → 2017-10-16 06:40 | Outpatient (CLI) | payer MEDICARE, OTHER, SELFPAY ==
--- NOTE | 2017-10-16 10:44 | STRESSREP ---
Stress Test Report Date: 10/16/2017 Procedure: Exercise tolerance test/imaging study Indications: Chest pain; CAD; PCI Consent: Per the patient Procedure: The patient exercised on a Sb protocol for 6 minutes and 30 seconds completing Stage II and 30 seconds of Stage III achieving a peak heart rate of 146 bpm (96 % predicted maximal heart rate) with a peak blood pressure 180/84 mmHg and a peak MET capacity of 8 METs. The baseline ECG demonstrated normal sinus rhythm with a right bundle branch block pattern. The peak exercise ECG demonstrated a continued right bundle branch block pattern. There were no cardiac dysrhythmias pretest, during exercise, or recovery. The functional capacity was considered average. There was no complaint of chest discomfort during exercise or recovery. The examination was discontinued secondary to dyspnea. Impression: 1. Technically adequate (percent predicted maximal heart rate greater than 85%) exercise tolerance test 2. Peak exercise ECG demonstrated a continued right bundle branch block pattern 3. There were no cardiac dysrhythmias pretest, during exercise, or recovery. 4. Nuclear images pending Myocardial perfusion imaging study: Technique: The patient was injected with 14.6 mCi of technetium 99m Cardiolite and subsequently rest SPECT Cardiolite nuclear imaging was obtained in the horizontal long, vertical long, and short axis views. The patient exercised on a Sb protocol for 6 minutes and 30 seconds completing Stage II and 30 seconds of Stage III achieving a peak heart rate of 46 bpm (96 % predicted maximal heart rate) with a peak blood pressure 180/84 mmHg and a peak MET capacity of 8 METs. The patient was injected with 44.5 mCi of technetium 99m Cardiolite and subsequently stress SPECT Cardiolite nuclear imaging was obtained in the horizontal long, vertical long, and short axis views. A gated Cardiolite study at peak stress was obtained. Interpretation: Rest and stress SPECT Cardiolite nuclear imaging status post realignment, normalization, and attenuation correction, demonstrates the appearance of relative uniform tracer uptake and myocardial perfusion appearing within normal limits. There is end systolic thickening and brightening. The gated Cardiolite study demonstrates myocardial thickening and inward wall motion. The reported LVEF is 75 %. Impression: 1. Rest and stress SPECT Cardiolite nuclear imaging demonstrate relative uniform tracer uptake and myocardial perfusion appearing within normal limits. 2. The gated Cardiolite study reports an LVEF of 75 %. This note was generated with [employer] software. It may contain incorrect words, spelling, and punctuation that were not noted in checking the note before signing.
--- NOTE | 2017-10-16 10:49 | STRESSREP_ITS ---
Stress Test Report Date: 10/16/2017 Procedure: Exercise tolerance test/imaging study Indications: Chest pain; CAD; PCI Consent: Per the patient Procedure: The patient exercised on a Sb protocol for 6 minutes and 30 seconds completing Stage II and 30 seconds of Stage III achieving a peak heart rate of 146 bpm (96 % predicted maximal heart rate) with a peak blood pressure 180/84 mmHg and a peak MET capacity of 8 METs. The baseline ECG demonstrated normal sinus rhythm with a right bundle branch block pattern. The peak exercise ECG demonstrated a continued right bundle branch block pattern. There were no cardiac dysrhythmias pretest, during exercise, or recovery. The functional capacity was considered average. There was no complaint of chest discomfort during exercise or recovery. The examination was discontinued secondary to dyspnea. Impression: 1. Technically adequate (percent predicted maximal heart rate greater than 85% ) exercise tolerance test 2. Peak exercise ECG demonstrated a continued right bundle branch block pattern 3. There were no cardiac dysrhythmias pretest, during exercise, or recovery. 4. Nuclear images pending Myocardial perfusion imaging study: Technique: The patient was injected with 14.6 mCi of technetium 99m Cardiolite and subsequently rest SPECT Cardiolite nuclear imaging was obtained in the horizontal long, vertical long, and short axis views. The patient exercised on a Sb protocol for 6 minutes and 30 seconds completing Stage II and 30 seconds of Stage III achieving a peak heart rate of 46 bpm (96 % predicted maximal heart rate) with a peak blood pressure 180/84 mmHg and a peak MET capacity of 8 METs. The patient was injected with 44.5 mCi of technetium 99m Cardiolite and subsequently stress SPECT Cardiolite nuclear imaging was obtained in the horizontal long, vertical long, and short axis views. A gated Cardiolite study at peak stress was obtained. Interpretation: Rest and stress SPECT Cardiolite nuclear imaging status post realignment, normalization, and attenuation correction, demonstrates the appearance of relative uniform tracer uptake and myocardial perfusion appearing within normal limits. There is end systolic thickening and brightening. The gated Cardiolite study demonstrates myocardial thickening and inward wall motion. The reported LVEF is 75 %. Impression: 1. Rest and stress SPECT Cardiolite nuclear imaging demonstrate relative uniform tracer uptake and myocardial perfusion appearing within normal limits. 2. The gated Cardiolite study reports an LVEF of 75 %. This note was generated with Exie software. It may contain incorrect words, spelling, and punctuation that were not noted in checking the note before signing.
== END ==
PROVIDERS: Family Provider Internal Medicine; PCP Internal Medicine; Visit Provider Internal Medicine Cardiovascular Disease
DX: I25.10 Atherosclerotic heart disease of native coronary artery without angina pectoris (principal); R07.9 Chest pain, unspecified; Z95.5 Presence of coronary angioplasty implant and graft
CPT/HCPCS: 78452; 93017; A9500; A4216

== ENCOUNTER 2017-10-26 10:15 | Outpatient (RCR) | payer MEDICARE, OTHER, SELFPAY ==
[2017-10-09 00:49] VITALS: BP 116/58; BP 120/80
[2017-11-01 12:12] VITALS: BP 120/80; BP 172/86
--- NOTE | 2017-11-01 12:12 | CR.ITP_ITS ---
Exercise - Final/Discharge - Visit Date of Eval: 11/01/17 - graduated 10/26/2017 Session #:: 36 - completed CR program - Stages of Change Stages of Change:: Action - Exercise Prescription Mode:: Treadmill, Rower, Airdyne, NuStep Frequency (x/week): 3 Duration:: 30 METs: 7 126% increase over course of his program! Target Heart Rate:: 121-129 max HR 124 - Hypertension Do any of the following apply?: Yes Resting Blood Pressure:: 120/80 - optimal BP control Peak Exercise Blood Pressure:: 172/86 - Intervention Home Exercise/Activity Goal:: Moderate Exercise 30 min/day x 5 days/wk - Education Goal Progress: Goal Met Nutrition - Initial Assessment - Program Goals Nutrition Program Goals: LDL <70. Total Cholesterol <200. HDL >45. Triglycerides <150. HgbA1C <7%. BMI <25 - Diabetes Do you monitor your blood sugar at home?: No Nutrition - Final Assessment - Program Goals Nutrition Program Goals: LDL <70. Total Cholesterol <200. HDL >45. Triglycerides <150. HgbA1C <7%. BMI <25 - Visit Date of Eval: 11/01/17 - Stages of Change Stages of Change:: Action - Diabetes Diabetes:: No - Weight Management Height: 5 ft 8 in Weight:: 201 lb - stable Body Fat %:: 30.4 - Education Education Goal Reached?: Yes Tobacco - Final Assessment - Program Goals Tobacco Program Goals: Complete smoking cessation. Attend education classes. Improve Knowledge Test score - Stage of Change Stages of Change:: Action - Tobacco Use Tobacco Use: Non-smoker Do you use smokeless tobacco?: No - Education Education Goal Reached?: Yes Psychosocial - Final Assessmen - Target Goals Target Goals: Assess presence or absence of depression. Using a valid screening tool, maximizes coping skills. Positive support system - Stages of Change Stages of Change:: Action - Psychosocial Test Tool Used:: HANDS Depression Questionnaire - Intervention PS - Interventions: Yes Attend Stress Management Classes, Yes Uses Stress Management Skills, No Referral to Mental Health, No Referral to [facility] Case Management, No Referral to Physician - Education Education Goal Reached?: Yes - Patient/Program Goal Preventative Medication(s):: Aspirin, JOHNNA inhibitor, Clopidogrel, Beta analia, Statin/lipid - Assistive Devices Assistive Devices:: None Fall Risk Assessed:: Yes Patient Health Questionnaire Discharge Assessment 1. Little interest or pleasure in doing things: Not at all 2. Feeling down, depressed, or hopeless: Not at all 3. Trouble falling or staying asleep, or sleeping too much: Not at all 4. Feeling tired or having little energy: Not at all 5. Poor appetite or overeating: Not at all 6. Feeling bad about yourself -- or that you are a failure or have let yourself or your family down: Not at all 7. Trouble concentrating on things, such as reading the newspaper or watching television: Not at all 8. Moving or speaking so slowly that other people could have noticed. Or the opposite - being so fidgety or restless that you have been moving around a lot more than usual: Not at all 9. Thoughts that you would be better off , or of hurting yourself in some way: Not at all Total Score: 0 ALICIA-Q SV Test - Statements CAD is a disease of the arteries in the heart: False Examples of risk factors for heart disease: True Angina is chest pain or discomfort: True The benefits of resistance training include: True Eating more meat and dairy products: False Anti-platelet medications such as aspirin are important: True The only effective way to manage stress: False An exercise warm-up slowly increases heart rate: True Prepared, processed foods usually have high sodium: True Depression is common after a heart attack: True The statin medications lower cholesterol: False To control blood pressure, lower the amount of sodium: True If someone gets chest discomfort during walking: False Transfats are partially hydrogenated vegetable oils: True Sleep apnea that is not treated increases the risk: False To control cholesterol, one should become a vegetarian: False Someone knows if he/she is exercising at the right level: True Diabetes cannot be prevented with exercise & health eating: False Stress is a large risk for heart attack: True A diet that can help lower blood pressure is rich in: True - Total Score Total Correct Responses: 19 Self-Efficacy Discharge Assessment We would like to know how confident you are in doing certain activities. Please select your confidence level for:: Select your confidence level for the following using the scale 1-10 where 1 is not at all confident and 10 is totally confident. Your score is the average of all 6 responses. Fatigue: How confident are you that you can keep the fatigue caused by your disease from interfering with the things you want to do? Select Number: 10 Physical Discomfort or Pain: How confident are you that you can keep the physical discomfort or pain of your disease from interfering with the things you want to do? Select Number: 10 Emotional Distress: How confident are you that you can keep the emotional distress caused by your disease from interfering with the things you want to do? Select Number: 10 Other Symptoms or Health Problems: How confident are you that you can keep other symptoms or health problems from interfering with the things you want to do? Select Number: 10 Different Tasks and Activities: How confident are you that you can do the different tasks and activities needed to manage your health condition so as to reduce your need to see a doctor? Select Number: 10 Medication: How confident are you that you can do things other than just taking medication to reduce how much your illness affects your everyday life? Select Number: 10 Total Score:: 10 Nutrition Survey - Nutrition Survey Instructions Scoring Instructions: Scoring is as follows: Yes = 1 points. No = 0 point. Patient score that is >/=12 is considered to be at potential nutritional risk and could benefit from a referral to a registered dietitian. - Nutrition Survey Discharge Have you lost >10 lbs over the past 2 months without trying?: No Are you following a special diet at home for diabetes, low fat, or low salt?: Yes - cardiac diet Are you interested in meeting with a dietitian for help understanding your diet? : No Do you eat less than 3 meals a day?: No Do you eat fatty meats (vega, sausage, ribs, etc), fried foods, desserts, large amounts of salad dressings, margarine, butter, or cheese most days?: No Do you have food allergies? [Enter types in comment field]: No Do you eat in restaurants more than 3 times a week?: No Do you season food with salt, seasoning salt, or garlic salt?: No Do you used canned, boxed, frozen meals, or soups, seasoning packets?: No Total Score:: 1
== END 2017-10-29 11:22 | disposition home or self-care (01) ==
LOC: CR 10:15
PROVIDERS: Family Provider Internal Medicine; PCP Internal Medicine; Visit Provider Internal Medicine Cardiovascular Disease
DX: I25.10 Atherosclerotic heart disease of native coronary artery without angina pectoris (principal); Z95.5 Presence of coronary angioplasty implant and graft; I25.2 Old myocardial infarction
CPT/HCPCS: 93798

== ENCOUNTER → 2017-10-26 10:15 | Outpatient (RCR) | payer MEDICARE, OTHER, SELFPAY | END | disposition home or self-care (01) | LOC: DC 13:12 | PROVIDERS: Family Provider Internal Medicine; PCP Internal Medicine; Visit Provider Internal Medicine Cardiovascular Disease | DX: N18.3 Chronic kidney disease, stage 3 (moderate) (principal); E78.5 Hyperlipidemia, unspecified; Z71.3 Dietary counseling and surveillance; I25.10 Atherosclerotic heart disease of native coronary artery without angina pectoris; I25.2 Old myocardial infarction; Z95.5 Presence of coronary angioplasty implant and graft | CPT/HCPCS: 93798; 97803 ==

== ENCOUNTER → 2017-11-15 10:12 | Outpatient (CLI) | payer MEDICARE, OTHER, SELFPAY ==
--- NOTE | 2017-11-15 10:12 | DT_ITS ---
This patient was seen during an EMR downtime November 12, 2017 - November 19, 2017. This patient may have a combination of paper and electronic documentation or all paper documentation. All documentation is viewable within the e-chart portion of [facility] for each patient visit.
[2017-11-20 01:15] LABS: AST(SGOT) 82 U/L (15-37); Alanine Aminotransfer ALT/SGPT 90 U/L (16-61); Albumin, Serum 3.7 g/dL (3.2-5.0); Alkaline Phosphatase 204 U/L (45-117); Bilirubin, Direct 0.14 mg/dL (0.00-0.30); Globulin 4.1 g/dL (2.2-4.2); Protein, Total 7.8 g/dL (6.4-8.2)
== END ==
PROVIDERS: Family Provider Internal Medicine; PCP Internal Medicine; Visit Provider Internal Medicine Gastroenterology
DX: R79.89 Other specified abnormal findings of blood chemistry (principal); K75.9 Inflammatory liver disease, unspecified; I25.10 Atherosclerotic heart disease of native coronary artery without angina pectoris; K76.0 Fatty (change of) liver, not elsewhere classified
CPT/HCPCS: 36415; 80076

== ENCOUNTER → 2017-12-07 09:49 | Outpatient (CLI) | payer MEDICARE, OTHER, SELFPAY ==
[2017-12-09 09:56] LABS: Anti-Smooth Muscle ABS 4 Units (0-19)
== END ==
PROVIDERS: Family Provider Internal Medicine; PCP Internal Medicine; Visit Provider Internal Medicine Gastroenterology
DX: K75.9 Inflammatory liver disease, unspecified (principal)
CPT/HCPCS: 36415; 83516

== ENCOUNTER → 2018-01-15 10:47 | Outpatient (CLI) | payer MEDICARE, OTHER, SELFPAY ==
[2018-01-15 12:55] LABS: AST(SGOT) 78 U/L (15-37); Alanine Aminotransfer ALT/SGPT 112 U/L (16-61); Albumin, Serum 3.7 g/dL (3.2-5.0); Alkaline Phosphatase 227 U/L (45-117); Bilirubin, Direct 0.23 mg/dL (0.00-0.30); Globulin 4.4 g/dL (2.2-4.2); Protein, Total 8.1 g/dL (6.4-8.2)
== END ==
PROVIDERS: Family Provider Internal Medicine; PCP Internal Medicine; Visit Provider Internal Medicine Gastroenterology
DX: K75.9 Inflammatory liver disease, unspecified (principal); K76.0 Fatty (change of) liver, not elsewhere classified; I25.10 Atherosclerotic heart disease of native coronary artery without angina pectoris; R94.5 Abnormal results of liver function studies
CPT/HCPCS: 36415; 80076

== ENCOUNTER → 2019-05-07 11:41 | Outpatient (CLI) | payer MEDICARE, OTHER, SELFPAY ==
[2019-05-02 09:24] VITALS: BMI 32.5
--- NOTE | 2019-05-07 11:47 | RAD_ITS ---
STUDY: X-RAY CHEST REASON FOR EXAM: Male, 69 years old. TECHNIQUE: 2 Views COMPARISON: July 17, 2017 FINDINGS: The lungs are clear and expanded. There is no demonstrated pleural abnormality. Normal size heart. Normal mediastinum and vibha. Normal visualized pulmonary arteries. Normal visualized aortic arch and descending thoracic aorta. Normal visualized thoracic spine. Normal visualized ribs, clavicles, and shoulders. There is no demonstrated abnormality of the visualized soft tissue structures of the upper abdomen. RAD/Chest PA and Lateral IMPRESSION: Normal x-ray examination of the chest unchanged since July 17, 2017. Electronically Signed: Jairon Mccormack, at 15:40 EST Tel , Service support ,
== END ==
PROVIDERS: Family Provider Internal Medicine; PCP Internal Medicine; Referring Provider Internal Medicine Cardiovascular Disease; Visit Provider Internal Medicine Cardiovascular Disease
DX: R06.02 Shortness of breath (principal)
CPT/HCPCS: 71046

== ENCOUNTER → 2019-05-27 06:22 | Outpatient (CLI) | payer MEDICARE, OTHER, SELFPAY ==
[2019-05-02 09:24] VITALS: BMI 32.5
--- NOTE | 2019-05-27 06:24 | ECHOCS_ITS ---
Reason For Study: CAD/ASHD Procedure This was a 2D Doppler, Color Flow transthoracic echocardiogram. The study was technically difficult. Contrast injection was performed. Exam performed in department. Left Ventricle Normal LV size. Left ventricular systolic function is normal. The estimated ejection fraction is 70 %. No evidence for diastolic dysfunction. No regional wall motion abnormalities noted. Right Ventricle Normal RV size. Normal systolic function. Atria The left atrium is mildly enlarged. Normal right atrium. No doppler evidence for ASD. Mitral Valve There is no mitral annular calcification. Normal mitral valve. Trivial mitral valve insufficiency. Tricuspid Valve Normal tricuspid valve. Trivial tricuspid valve insufficiency. Aortic Valve Trisinus/trileaflet aortic valve. Normal aortic valve. Pulmonic Valve The pulmonic valve is not well visualized. Great Vessels Normal sized aortic root. Pericardium/Pleural No pericardial effusion. Medication 22 gauge I.V. with prn adaptor inserted into right arm. Diluted definity 3ml given slow IV push to enhance endocardial definition. MMode/2D Measurements & Calculations LVIDd: 4.4 cm IVSd: 1.2 cm Ao root diam: 3.0 cm LVIDs: 2.3 cm LVPWd: 1.1 cm LA dimension: 3.8 cm RVDd: 4.1 cm FS: 47.6 % LAV(MOD-bp): 85.3 ml LA A4 area: 26.4 cm2 RA A4 area: 20.1 cm2 LAV(MOD-bp) Indexed: 40.6 ml/m2 LAV(MOD-sp2): 77.7 ml LAV(MOD-sp4): 84.6 ml Time Measurements MV dec time: 0.27 sec Doppler Measurements & Calculations MV E max chris: 76.6 cm/sec Lat Peak E' Chris: 9.9 cm/sec Med Peak E' Chris: 9.0 cm/sec MV A max chris: 83.4 cm/sec E/E' lat: 7.8 E/E' med: 8.5 MV E/A: 0.92 MV V2 max: 95.3 cm/sec Ao V2 max: 166.9 cm/sec LV V1 max: 129.8 cm/sec MV max P.6 mmHg Ao max P.1 mmHg LV V1 max P.7 mmHg MV V2 mean: 56.7 cm/sec MV mean P.5 mmHg MV V2 VTI: 23.4 cm PA V2 max: 125.2 cm/sec Interpretation Summary The study was technically difficult. Contrast injection was performed. Left ventricular systolic function is normal. The estimated ejection fraction is 70 %. The left atrium is mildly enlarged. Trivial mitral valve insufficiency. Trivial tricuspid valve insufficiency. No evidence for diastolic dysfunction. Ordering Physician: Carson Matos Referring Physician: Carson Matos Performed By: Zain Ling RCS
--- NOTE | 2019-05-27 13:54 | STRESSREP ---
Stress Test Report Date: 05-27-19 Procedure: Exercise tolerance test/imaging study Indications: Shortness of breath/dyspnea on exertion; CAD; PCI Consent: Per the patient Procedure: The patient exercised on a Sb protocol for 7 minutes completing Stage II and 1 minute of Stage III achieving a peak heart rate of 150 bpm (100 % predicted maximal heart rate) with a peak blood pressure 202/70 mmHg and a peak MET capacity of 8 METs. The baseline ECG demonstrated normal sinus rhythm; right bundle branch block. The peak exercise ECG demonstrated continued right bundle branch block. There was a rare PVC during early recovery. The functional capacity was considered average. There was no complaint of chest discomfort during exercise or recovery. The examination was discontinued secondary to dyspnea and leg discomfort. Impression: 1. Technically adequate (percent predicted maximal heart rate greater than 85%) exercise tolerance test 2. Peak exercise ECG a continued right bundle branch block 3. There was a rare PVC during early recovery 4. Nuclear images pending Myocardial perfusion imaging study: Technique: The patient was injected with 11.0 mCi of technetium 99m Cardiolite and subsequently rest SPECT Cardiolite nuclear imaging was obtained in the horizontal long, vertical long, and short axis views. The patient exercised on a Sb protocol for 7 minutes completing Stage II and 1 minute of Stage III achieving a peak heart rate of 150 bpm (100 % predicted maximal heart rate) with a peak blood pressure 202/70 mmHg and a peak MET capacity of 8 METs. The patient was injected with 33.0 mCi of technetium 99m Cardiolite and subsequently stress SPECT Cardiolite nuclear imaging was obtained in the horizontal long, vertical long, and short axis views. A gated Cardiolite study at peak stress was obtained. Interpretation: Rest and stress SPECT Cardiolite nuclear imaging status post realignment, normalization, and attenuation correction, demonstrates parents of a small area of diminished myocardial perfusion/tracer uptake in the mid anterior segments which appears to improve/normalize following stress.. There is end systolic thickening and brightening. The gated Cardiolite study demonstrates myocardial thickening and inward wall motion. The reported LVEF is 75 %. Impression: 1. Rest and stress SPECT Cardiolite nuclear imaging demonstrate resting myocardial perfusion changes which appear to improve/normalize following stress appearing compatible shifting soft tissue attenuation/artifact with no myocardial perfusion changes considered diagnostic for associated stress-induced myocardial ischemia. 2. The gated Cardiolite study reports an LVEF of 75 %. This note was generated with TransLatticeation software. It may contain incorrect words, spelling, and punctuation that were not noted in checking the note before signing.
== END ==
PROVIDERS: Family Provider Internal Medicine; PCP Internal Medicine; Referring Provider Internal Medicine Cardiovascular Disease; Visit Provider Internal Medicine Cardiovascular Disease
DX: I25.10 Atherosclerotic heart disease of native coronary artery without angina pectoris (principal); I10 Essential (primary) hypertension; E78.00 Pure hypercholesterolemia, unspecified; Z95.5 Presence of coronary angioplasty implant and graft; R06.02 Shortness of breath
CPT/HCPCS: 78452; 93017; 93306; A9500; Q9957; A4216; C8929

== ENCOUNTER → 2019-08-19 08:24 | Outpatient (CLI) | payer MEDICARE, OTHER, SELFPAY ==
[2019-08-14 09:11] VITALS: BMI 32.6
[2019-08-19 08:45] VITALS: PULSE 55; PULSE 72; PULSE 73; PULSE 74; PULSE 77; PULSE 80; O2SAT 94; O2SAT 95; O2SAT 96; O2SAT 97
--- NOTE | 2019-08-20 10:40 | PCM.PSN.6M ---
PSN 6 Minute Walk Test - 6 Minute Walk Test 6 Minute Walk Test: 6 Minute Walk Test PSN:6-Minute Walk Test Start: 08/19/19 08:45 Freq: Status: Active Protocol: [id number].[id number] Document 08/19/19 08:45 [facility] (Rec: 08/19/19 08:50 [facility] [id number]) 6 Minute Walk Test Date Performed 08/19/19 Time Performed 08:29 Height 5 ft 9 in Weight: 467 lb 6.08 oz Weight in Pounds 467.[address]: Chong Curry FIO2 (% Oxygen) 21 Assistive device used: None Pre-test Oxygen Delivery Method Room Air Pulse Ox (%) 94 Pulse Rate (60-100 beats/min) 55 L Dyspnea Kalee Scale (0-10) 0 Exertion Kalee Scale (6-20) 11 Number of Rests Taken 0 1st minute Oxygen Delivery Method Room Air Pulse Ox (%) 97 Pulse Rate (60-100 beats/min) 72 2nd minute Oxygen Delivery Method Room Air Pulse Ox (%) 96 Pulse Rate (60-100 beats/min) 73 3rd minute Oxygen Delivery Method Room Air Pulse Ox (%) 96 Pulse Rate (60-100 beats/min) 74 4th minute Oxygen Delivery Method Room Air Pulse Ox (%) 96 Pulse Rate (60-100 beats/min) 74 5th minute Oxygen Delivery Method Room Air Pulse Ox (%) 95 Pulse Rate (60-100 beats/min) 80 6th minute Oxygen Delivery Method Room Air Pulse Ox (%) 96 Pulse Rate (60-100 beats/min) 77 Post-test Oxygen Delivery Method Room Air Pulse Ox (%) 94 Pulse Rate (60-100 beats/min) 55 L Dyspnea Kalee Scale (0-10) 0 Exertion Kalee Scale (6-20) 11 Full Laps Walked 19 Partial Lap, Number of Tiles Walked 3 Total Distance Walked (ft) 1124 - Interpretation Interpretation: The patient ambulated 1124 feet over the course of 6 minutes beginning on room air without assistive devices or breaks. Pretesting oxygen saturation was noted to be 94% on room air. With ambulation, the eduardo oxygen saturation was 95%. There was no significant exertional oxygen desaturation. - Recommendations Recommendations: There is no indication for the use of supplemental oxygen at this time.
== END ==
PROVIDERS: PCP Internal Medicine; Referring Provider Internal Medicine Critical Care Medicine; Visit Provider Internal Medicine Critical Care Medicine
DX: R06.02 Shortness of breath (principal)
CPT/HCPCS: 94618

== ENCOUNTER → 2019-08-28 07:54 | Outpatient (CLI) | payer MEDICARE, OTHER, SELFPAY ==
[2019-08-14 09:11] VITALS: BMI 32.6
--- NOTE | 2019-08-29 05:38 | PFTCOMP ---
COMPLETE PULMONARY FUNCTION TEST INTERPRETATION Brief HPI: Patient is a 69 year old male, currently under the care of Dr. Curry, who presents to [facility] for complete pulmonary function tests secondary to diagnosis of dyspnea. Respiratory therapist reports good effort and reproducible results. Interpretation: Forced expiration spirometry shows no large airways obstructive ventilatory defect with an FEV1 of 85% predicted. There is no significant bronchodilator response by strict ATS criteria. Spirograms are of good quality and plateau slowly, indicating slowly emptying areas of the lungs. The respiratory flow volume loop shows decreased expiratory flow rates at high lung volumes consistent with small airways obstruction. Lung volumes by body plethysmography show a normal total lung capacity at 5.46 L, 90% predicted. All other lung volumes are reduced symmetrically. Diffusion capacity by carbon monoxide is normal at 97% predicted. The airway resistance is normal. No previous pulmonary function tests were available for review. Impression: These pulmonary function tests are within normal limits, but does have some subtle signs of possible small airways obstruction
== END ==
PROVIDERS: PCP Internal Medicine; Referring Provider Internal Medicine Critical Care Medicine; Visit Provider Internal Medicine Critical Care Medicine
DX: R06.02 Shortness of breath (principal)
CPT/HCPCS: 94060; 94726; 94729

== ENCOUNTER → 2019-10-28 10:10 | Outpatient (CLI) | payer MEDICARE, OTHER, SELFPAY ==
[2019-09-25 10:37] VITALS: BMI 31.3
[2019-10-28 11:28] LABS: AST(SGOT) 96 U/L (15-37); Alanine Aminotransfer ALT/SGPT 73 U/L (16-61); Albumin, Serum 3.6 g/dL (3.2-5.0); Alkaline Phosphatase 162 U/L (45-117); Bilirubin, Direct 0.37 mg/dL (0.00-0.30); Cholesterol 207 mg/dL (200); Globulin 3.6 g/dL (2.2-4.2); High Density Lipoprotein 75 mg/dL; Protein, Total 7.2 g/dL (6.4-8.2); Triglycerides 121 mg/dL; Very Low Density Lipoprotein 24 mg/dL (5-40)
== END ==
PROVIDERS: PCP Internal Medicine; Visit Provider Internal Medicine Cardiovascular Disease
DX: E78.00 Pure hypercholesterolemia, unspecified (principal)
CPT/HCPCS: 36415; 80061; 80076

== ENCOUNTER → 2019-11-19 20:00 | Outpatient (CLI) | payer MEDICARE, OTHER, SELFPAY ==
[2019-08-14 09:11] VITALS: BMI 32.6
== END ==
PROVIDERS: PCP Internal Medicine; Referring Provider Internal Medicine Critical Care Medicine; Visit Provider Internal Medicine Critical Care Medicine
DX: G47.19 Other hypersomnia (principal)
CPT/HCPCS: 95810

== ENCOUNTER → 2020-01-19 20:00 | Outpatient (CLI) | payer MEDICARE, OTHER, SELFPAY ==
[2019-10-30 08:34] VITALS: BMI 31.7
== END ==
PROVIDERS: PCP Internal Medicine; Referring Provider Nurse Practitioner Acute Care; Visit Provider Nurse Practitioner Acute Care
DX: G47.33 Obstructive sleep apnea (adult) (pediatric) (principal)
CPT/HCPCS: 95811

== ENCOUNTER 2020-08-09 08:45 | Outpatient (RCR) | payer MEDICARE, OTHER, SELFPAY ==
[2020-07-12 10:11] VITALS: BMI 32.5
== END 2020-08-09 23:59 ==
LOC: IMMUN 08:45
PROVIDERS: PCP Internal Medicine; Visit Provider Family Medicine
DX: Z23 Encounter for immunization (principal)
CPT/HCPCS: 0011A; 0012A

== ENCOUNTER 2021-04-26 01:29 | Emergency (ER) | payer MEDICARE, OTHER, SELFPAY ==
[2021-04-26 01:30] VITALS: BP 168/72; PULSE 79; RESP 24; TEMP 36.9; O2SAT 98; BMI 32.6
--- NOTE | 2021-04-26 01:47 | EKG12_ITS ---
Test Reason : CP Blood Pressure : / mmHG Vent. Rate : 067 BPM Atrial Rate : 067 BPM P-R Int : 232 ms QRS Dur : 108 ms QT Int : 426 ms P-R-T Axes : 025 -40 014 degrees QTc Int : 450 ms Sinus rhythm with 1st degree A-V block Left axis deviation Incomplete right bundle branch block Abnormal ECG Confirmed by PHILIP GIBSON, NAEL ([id number]), director [employer] FRANCESCA CASIANO ([id number]) on 04/27/2021 10:00:57 AM Referred By: TEREZA Confirmed By:NAEL PALACIOS MD
--- NOTE | 2021-04-26 01:47 | RAD_ITS ---
STUDY: X-RAY CHEST REASON FOR EXAM: Male, 71 years old. chest pain TECHNIQUE: Single AP portable view of the chest. COMPARISON: 05/07/2019. FINDINGS: The lungs are normally expanded. There is mild right perihilar atelectasis. There is mild left pleural effusion. Cannot exclude left basilar infiltrate. Normal size heart. Normal mediastinum and vibha. Normal visualized pulmonary arteries. Normal visualized aortic arch and descending thoracic aorta. There are diffuse degenerative changes of the visualized thoracic spine. Normal visualized ribs, clavicles, and shoulders. There is no demonstrated abnormality of the visualized soft tissue structures of the upper abdomen. RAD/Chest 1 View (Portable) IMPRESSION: Mild right perihilar atelectasis. Mild left-sided pleural effusion with underlying atelectasis or infiltrate not excluded. Electronically Signed: Yenny Taylor MD at 2:47 EST , Service support ,
[2021-04-26 01:58] LABS: Absolute Lymphocyte Count 1.05 X10^3/uL (0.83-4.51); Absolute Neutrophil Count 3.8 X10^3/uL (2.0-7.7); Basophil# 0.07 X10^3/uL; Basophil% 1.2 % (0-1); Eosinophil# 0.25 X10^3/uL; Eosinophils% 4.1 % (0-5); Hematocrit 42.5 % (40-54); Hemoglobin 13.9 g/dL (13.0-16.5); Lymphocyte # 1.05 X10^3/ul (0.83-4.51); Lymphocyte % 17.4 % (19-41); Mean Corp Hgb Conc 32.7 g/dL (32-36); Mean Corpuscular Hgb 32.1 pg (27.0-32.0); Mean Corpuscular Volume 98.2 fL (80-94); Mean Platelet Vol. 11.2 fl (6.2-12.0); Monocyte# 0.82 X10^3/uL; Monocyte% 13.6 % (0-10); NRBC Flagged by Analyzer 0 % (0-5); Neutrophil # 3.84 X10^3/uL (2.7-7.7); Neutrophil % 63.4 % (47-70); Platelet Count 125 K/mm3 (150-450); RBC Distribution Width CV 15.3 % (11.6-14.6); RBC Distribution Width SD 55.4 fl (35.1-43.9); Red Blood Count 4.33 M/mm3 (4.6-6.2); White Blood Count 6.1 K/mm3 (4.4-11.0)
[2021-04-26] MEDS: Aspirin 81 MG TAB.CHEW 324 MG PO (02:03)
[2021-04-26 02:04] VITALS: O2SAT 98
[2021-04-26 02:10] LABS: Anion Gap 5 (5-15); BUN 18 mg/dL (7-18); Calcium,Total 9.2 mg/dL (8.5-10.1); Chloride 109 mmol/L (98-107); EST Glomerular Filtration Rate 78 mL/min (>60); Est Glom Filt Rate - Afr Amer 94 mL/min (>60); Estimated Creatinine Clearance 66.77 ml/min; Glucose 143 mg/dL (74-106); Potassium 4.2 mmol/L (3.5-5.1); Sodium Level 140 mmol/L (136-145); Troponin-I HS 13 pg/mL (3.0-78.0)
--- NOTE | 2021-04-26 03:45 | EDS_ITS ---
HPI History of Present Illness Chief Complaint: Back Informant: patient Onset/Context/Timing Onset: Yesterday Context: Gradual Onset Timing: Waxes and wanes Current Severity: Gone Maximum Severity: Moderate Narrative Narrative: Patient presents secondary to back and chest pain. He describes a pressure-like band around his lower ribs that wraps around just below his shoulder blades. He states symptoms started at 930 last evening after he ate some vegetables. Symptoms do seem to be worse when he lies down. He did note some improvement with Tums. He does have a history of cardiac disease with stents in place and wanted to ensure his heart was okay. He denies shortness of breath. [facility] Medical History Atherosclerotic heart disease of [place] coronary artery without angina pectoris BPH (benign prostatic hyperplasia) CKD (chronic kidney disease), stage III Essential hypertension Hyperglycemia VANESSA on CPAP Presence of stent in coronary artery (~07/18/17) Pure hypercholesterolemia SOB (shortness of breath) Home Medications aspirin 81 mg PO DAILY 07/17/17 [History Last Taken 07/16/17 08:00] finasteride 5 mg PO DAILY 07/17/17 [History Last Taken 07/16/17 08:00] fenofibrate nanocrystallized 48 mg tablet 48 mg PO DAILY 10/07/18 [History Last Taken Unknown] ibuprofen 200 mg tablet 200 mg PO Q8H PRN tab 10/07/18 [History Last Taken Unknown] cholecalciferol (vitamin D3) 50 mcg (2,000 unit) capsule 50 mcg PO DAILY 01/12/21 [History Last Taken Unknown] alirocumab 150 mg/mL subcutaneous pen injector 150 mg SC Q2W #2 ml 02/21/21 [Rx Last Taken Unknown] carvedilol 3.125 mg tablet 3.125 mg PO BID #180 tab 03/03/21 [Rx Last Taken Unknown] Allergy/AdvReac Type Severity Reaction Status Date / Time B[place]-Qga-Kif Reductase AdvReac Severe myalgias Verified 04/26/21 01:33 Inhibitor Family History Mother Heart disease Cancer Skin cancer Father Cancer Skin cancer Brother Cancer Prostate cancer Surgical History Presence of coronary angioplasty implant and graft (~07/18/17) S/P coronary artery stent placement Social History Smoking Status: Former smoker Tobacco: How many years used: 45 how long ago did patient quit smokin months ago alcohol intake: current alcohol intake frequency: a few times a month Alcohol type: hard liquor substance use type: does not use caffeine: Yes Type: carbonated beverages Number of servings: 1 what type of physical activity do you participate in: other details: Cardiac rehab frequency: 3-4 times per week duration: 15-30 minutes/day seatbelt use: always do you feel safe at home: Yes ROS ROS ED Constitutional Constitutional ED: Denies chills or fever(s) Eyes Eyes: Denies change in vision ENT ENT ED: Denies sore throat Cardiovascular Cardiovascular: Reports chest pain Respiratory/Chest Respiratory/Chest: Denies cough or dyspnea Gastrointestinal Gastrointestinal: Denies abdominal pain, diarrhea, nausea or vomiting Genitourinary Genitourinary ED: Denies dysuria Musculoskeletal Musculoskeletal: Reports back pain Integumentary Denies rash Neurologic Neurologic: Denies headache(s) or weakness Allergic/Immunologic Allergic/Immunologic ED: Denies urticaria EXAM Physical Exam Const Vital Signs: 04/26/21 01:30 04/26/21 02:04 04/26/21 04:02 Temperature 98.5 F Temperature Source Temporal Pulse Rate 79 Respiratory Rate 24 H 17 Blood Pressure 168/72 H 144/71 H Blood Pressure Mean 104 95 Pulse Ox 98 98 Oxygen Delivery Method Room Air Room Air 04/26/21 04:23 Temperature Temperature Source Pulse Rate 68 Respiratory Rate 17 Blood Pressure 136/74 H Blood Pressure Mean Pulse Ox 98 Oxygen Delivery Method Positive well nourished and well developed General Appearance ED: well developed Eyes PERRL and EOMs intact bilaterally Neck supple Chest Wall inspection of chest normal and palpation of chest normal Resp normal respiratory effort and clear to auscultation bilaterally Cardio regular rate and regular rhythm GI normal to inspection, nondistended, normoactive bowel sounds and non-tender Palpation: soft Back/Spine Back/Spine Narrative: No reproducible back pain. Extremity normal to inspection Neuro oriented x3 Sensorium / Orientation: alert Psych mental status grossly normal Skin no rashes or lesions noted MDM MDM MDM Narrative Medical decision making narrative: Patient was given a dose of IV Protonix. Lab work, EKG, chest x-ray obtained. Lab Data Attestation: I reviewed the patient's lab results. Labs: Laboratory Results - last 24 hr 04/26/21 04/26/21 04/26/21 01:35 01:35 03:26 WBC 6.1 RBC 4.33 L Hgb 13.9 Hct 42.5 MCV 98.2 H MCH 32.1 H MCHC 32.7 RDW Std Deviation 55.4 H RDW Coeff of Kate 15.3 H Plt Count 125 L MPV 11.2 Immature Gran % (Auto) 0.300 Neut % (Auto) 63.4 Lymph % (Auto) 17.4 L [place] % (Auto) 13.6 H Eos % (Auto) 4.1 Baso % (Auto) 1.2 H Absolute Neuts (auto) 3.8 Absolute Lymphs (auto) 1.05 Nucleated RBC % 0 Sodium 140 Potassium 4.2 Chloride 109 H Carbon Dioxide 26.0 Anion Gap 5 BUN 18 Creatinine 1.00 Estim Creat Clear Calc 66.77 Est GFR (MDRD) Af Amer 94 Est GFR (MDRD) Non-Af 78 BUN/Creatinine Ratio 18.0 Glucose 143 H Calcium 9.2 Troponin I High Sens 13 13 Radiography Chest X-Ray - ED: 1 View, Read by ED Physician and Chronic Changes Diagnostic Testing: Clinical Impression(s) from Imaging Studies Chest X-Ray 04/26/21 01:47 IMPRESSION: Mild right perihilar atelectasis. Mild left-sided pleural effusion with underlying atelectasis or infiltrate not excluded. Electronically Signed: Yenny Taylor MD at 2:47 EST , Service support , EKG Initial EKG: Attestation: I personally reviewed and interpreted this EKG as follows: Interpretation: Sinus Rhythm (Sinus at 67 with no acute ischemia. Right bundle branch block noted. No significant change when compared to prior study.) Treatment and Re-Evaluation Comments:: On repeat evaluation patient resting comfortably. He continues to have no further pain in the emergency room. We did discuss obtaining a 2-hour troponin and he does agree with this plan. Repeat troponin is unchanged. Patient discharged home with follow-up instructions. Return instructions also provided. Patient comfortable with the plan. Discharge Plan Triage Chief Complaint: Back ED Provider: Leslee Mcadams Dx/Rx/DC Orders Clinical Impression: Chest pain, Acid reflux Instructions: ED Chest Pain, Noncardiac, ED GERD (Adult) Prescriptions: No Action fenofibrate nanocrystallized 48 mg tablet 48 mg PO DAILY RF: 0 ibuprofen 200 mg tablet 200 mg PO Q8H PRN (Reason: Breakthrough Pain, Mild) RF: 0 cholecalciferol (vitamin D3) 50 mcg (2,000 unit) capsule 50 mcg PO DAILY RF: 0 aspirin 81 MG tablet,delayed release (DR/EC) 81 mg PO DAILY RF: 0 finasteride 5 MG tablet 5 mg PO DAILY RF: 0 Praluent Pen 150 mg/mL pen injector 150 mg SC Q2W Qty: 2 RF: 12 carvedilol 3.125 mg tablet 3.125 mg PO BID Qty: 180 RF: 3 Primary Care Provider: Willem Corrales Referrals: Willem Corrales MD [Primary Care Provider] - 3-5 Days if not improving Disposition Disposition: Home, Self Care Discharge Date/Time: 04/26/21 04:24
[2021-04-26 04:01] LABS: Troponin-I HS 13 pg/mL (3.0-78.0)
[2021-04-26 04:02] VITALS: BP 144/71; RESP 17
[2021-04-26 04:23] VITALS: BP 136/74; PULSE 68; RESP 17; O2SAT 98
== END 2021-04-26 04:24 | disposition home or self-care (01) ==
PROVIDERS: Emergency Provider Emergency Medicine; PCP Internal Medicine
DX: R07.9 Chest pain, unspecified (principal); K21.9 Gastro-esophageal reflux disease without esophagitis; I25.10 Atherosclerotic heart disease of native coronary artery without angina pectoris; I12.9 Hypertensive chronic kidney disease with stage 1 through stage 4 chronic kidney disease, or unspecified chronic kidney disease; N18.30 Chronic kidney disease, stage 3 unspecified; E78.00 Pure hypercholesterolemia, unspecified; N40.0 Benign prostatic hyperplasia without lower urinary tract symptoms; G47.33 Obstructive sleep apnea (adult) (pediatric); Z95.5 Presence of coronary angioplasty implant and graft; Z79.82 Long term (current) use of aspirin; Z79.899 Other long term (current) drug therapy; Z87.891 Personal history of nicotine dependence
CPT/HCPCS: 71045; 80048; 84484; 85025; 93005; 96365; 99285; A4216

== ENCOUNTER → 2021-11-14 | Outpatient (CLI) | payer MEDICARE, OTHER, SELFPAY ==
[2021-11-14 10:16] LABS: AST(SGOT) 141 U/L (15-37); Alanine Aminotransfer ALT/SGPT 91 U/L (16-61); Albumin, Serum 3.1 g/dL (3.2-5.0); Alkaline Phosphatase 137 U/L (45-117); Bilirubin, Direct 0.65 mg/dL (0.00-0.30); Cholesterol 173 mg/dL (200); Globulin 2.9 g/dL (2.2-4.2); High Density Lipoprotein 75 mg/dL; Triglycerides 66 mg/dL; Very Low Density Lipoprotein 13 mg/dL (5-40)
== END | disposition home or self-care (01) ==
PROVIDERS: PCP Internal Medicine; Referring Provider Internal Medicine Cardiovascular Disease; Visit Provider Internal Medicine Cardiovascular Disease
DX: E78.00 Pure hypercholesterolemia, unspecified (principal); I25.10 Atherosclerotic heart disease of native coronary artery without angina pectoris; Z95.5 Presence of coronary angioplasty implant and graft
CPT/HCPCS: 36415; 80061; 80076

== ENCOUNTER → 2021-12-08 | Outpatient (CLI) | payer MEDICARE, OTHER, SELFPAY ==
--- NOTE | 2021-12-08 12:57 | ECHOD_ITS ---
Reason For Study: MURMUR Procedure This was a 2D Doppler, Color Flow transthoracic echocardiogram. The study was technically difficult. Exam performed in department. Left Ventricle Normal LV size. Left ventricular systolic function is normal. The estimated ejection fraction is 60 %. Unable to assess diastolic dysfunction. No regional wall motion abnormalities noted. Right Ventricle Normal RV size. Normal systolic function. Atria The left atrium is mildly enlarged. The right atrium is mildly enlarged. No doppler evidence for ASD. Mitral Valve There is no mitral annular calcification. Mild focal mitral valve calcification of the anterior leaflet. Mild-Moderate (1-2+) mitral valve insufficiency. Tricuspid Valve Normal tricuspid valve. Trivial tricuspid valve insufficiency. Right ventricular systolic pressure estimated to be 28 mmHg. Aortic Valve Trisinus/trileaflet aortic valve. Mild focal aortic valve calcification. Pulmonic Valve The pulmonic valve is not well visualized. Great Vessels Normal sized aortic root. Pericardium/Pleural No pericardial effusion. MMode/2D Measurements & Calculations LVIDd: 4.7 cm IVSd: 0.88 cm Ao root diam: 3.5 cm LVIDs: 2.9 cm LVPWd: 1.2 cm RVDd: 4.0 cm FS: 38.0 % LAV(MOD-bp): 98.9 ml LA A4 area: 27.7 cm2 RA A4 area: 21.3 cm2 LAV(MOD-bp) Indexed: 47.9 ml/m2 LAV(MOD-sp2): 98.6 ml LAV(MOD-sp4): 87.6 ml Doppler Measurements & Calculations MV E max jeane: 103.2 cm/sec Ao V2 max: 188.1 cm/sec LV V1 max: 155.5 cm/sec Ao max P.2 mmHg LV V1 max P.7 mmHg MR max jeane: 386.7 cm/sec PA V2 max: 127.1 cm/sec TR max jeane: 249.6 cm/sec MR max P.0 mmHg TR max P.9 mmHg ECHO/Echo Complete Interpretation Summary The study was technically difficult. Left ventricular systolic function is normal. The estimated ejection fraction is 60 %. The left atrium is mildly enlarged. The right atrium is mildly enlarged. Mild focal mitral valve calcification of the anterior leaflet. Mild-Moderate (1-2+) mitral valve insufficiency. Trivial tricuspid valve insufficiency. Mild focal aortic valve calcification. Right ventricular systolic pressure estimated to be 28 mmHg. Unable to assess diastolic dysfunction. Ordering Physician: Carson Matos Referring Physician: Carson Matos Performed By: Karly Medel RCS
== END | disposition home or self-care (01) ==
LOC: CVS 12:56
PROVIDERS: PCP Internal Medicine; Referring Provider Internal Medicine Cardiovascular Disease; Visit Provider Internal Medicine Cardiovascular Disease
DX: I25.10 Atherosclerotic heart disease of native coronary artery without angina pectoris (principal); R01.1 Cardiac murmur, unspecified
CPT/HCPCS: 93306

== ENCOUNTER → 2022-05-22 | Outpatient (CLI) | payer MEDICARE, OTHER, SELFPAY ==
--- NOTE | 2022-05-22 11:14 | RAD_ITS ---
EXAM: XR CHEST, 2 VIEWS CLINICAL INDICATION: SOB TECHNIQUE: Frontal and lateral views of the chest. This report was created using [employer]Line report generation technology. COMPARISON: 04/26/21 FINDINGS: LUNGS AND PLEURAL SPACES: New moderate to large right pleural effusion with adjacent passive atelectasis. Previous left pleural-parenchymal disease has significantly improved with small residual left pleural effusion noted. No pneumothorax. HEART: Unremarkable. Cardiac silhouette not enlarged. MEDIASTINUM: Central airways and mediastinal contour are unremarkable. BONES/JOINTS: Degenerative changes of the spine. SOFT TISSUES: Unremarkable. RAD/Chest PA and Lateral IMPRESSION: 1. New moderate to large right pleural effusion with adjacent passive atelectasis. 2. Previous left pleural-parenchymal disease has significantly improved with small residual left pleural effusion noted. Electronically Signed: Casa Gonzalez MD at 1:22 EST ,
== END | disposition home or self-care (01) ==
LOC: RAD 11:13
PROVIDERS: PCP Internal Medicine; Visit Provider Physician Assistant Medical
DX: R06.02 Shortness of breath (principal)
CPT/HCPCS: 71046

== ENCOUNTER → 2025-03-25 | Outpatient (CLI) | payer MEDICARE, OTHER, SELFPAY ==
--- NOTE | 2025-03-25 08:15 | CR.HP_ITS ---
CR - History & Physical General Arrival date:: 03/25/25 Arrival time:: 08:15 Date of Referral:: 03/11/25 Date of CR Evaluation:: 03/25/25 Referring Physician: Dr. Brian Davis Primary Diagnosis: Angina History of Present Cardiac Event Onset Date Current stable Angina Pectoris:: Yes (onset 03/11/25) Medications Ambulatory Orders Medication Instructions Recorded aspirin 81 mg tablet,delayed 81 mg PO DAILY heart heal th 07/17/17 release Lactobacillus rhamnosus GG 10 1 cap PO DAILY 04/24/23 billion cell capsule (Culturelle) acetaminophen 500 mg tablet 500 mg PO 04/24/23 (Tylenol Extra Strength) mycophenolate mofetil 250 mg 500 mg PO BID Liver trans plant 04/24/23 capsule (CellCept) nifedipine 30 mg tablet,extended 30 mg PO DAILY release 24 hr (Procardia XL) pantoprazole 40 mg tablet,delayed 40 mg PO DAILY Liver transplant 04/24/23 release (Protonix) sulfamethoxazole 800 1 tab PO .MWF Liver Transpla nt 04/24/23 mg-trimethoprim 160 mg tablet (Bactrim DS) amoxicillin 500 mg capsule 1,000 mg PO BID 04/29/24 cholecalciferol (vitamin D3) 50 50 mcg PO QDAY 4 mcg (2,000 unit) capsule evolocumab 140 mg/mL subcutaneous mg subcut High paola sterol 04/29/24 pen injector (Repatha SureClick) furosemide 20 mg tablet (Lasix) 20 mg PO DAILY Edema i n lower legs 04/29/24 tacrolimus 1 mg capsule, 1 mg PO BID Liver Transplant 04/29/24 immediate-release (Prograf) Allergies Allergies Oiystcl-DRC-MuN Reductase Inhibitor (Dveistm-Jzr-Peo Reductase Inhibitor) Adverse Reaction (Severe, Verified 04/29/24 10:28) myalgias Sleep Disorder Evaluation Hx of Sleep Apnea: Yes Do you snore loudly (louder than talking or can be heard through closed doors)?: No Do you often feel tired/ fatigued/ sleepy during daytime?: No Has anyone observed you stop breathing during sleep?: No History of Hypertension (for STOP score): Yes STOP Results: Negative Advanced Directives Advanced Directives Do you have a Healthcare Power of Senior Technical Writer?: Yes Living Will: Yes Advance Directives Information Provided: Yes Advance Directives on File: No DNR Order?:: No Past Medical History Covid-19 Screening Physicial Symptoms Other Clinical Concerns Exposure Risk Pertinent Comorbidities 65 years or older:: Yes Has a serious heart condition:: Yes Has liver disease:: Yes Past Medical Illness Medical History (Reviewed 04/29/24 @ 10:41 by Zulema Olson CHIEF OPHTHALMIC TECHNICIAN, CHIEF OPHTHALMIC TECHNICIAN-C) VANESSA on CPAP Pure hypercholesterolemia Presence of stent in coronary artery (~07/18/17) Essential hypertension SOB (shortness of breath) Atherosclerotic heart disease of [place] coronary artery without angina pectoris Hyperglycemia BPH (benign prostatic hyperplasia) CKD (chronic kidney disease), stage III Past Surgical History Surgical History (Reviewed 04/29/24 @ 10:41 by Zulema Olson CHIEF OPHTHALMIC TECHNICIAN, CHIEF OPHTHALMIC TECHNICIAN-C) Liver transplant recipient History of umbilical hernia repair History of prostatectomy Presence of coronary angioplasty implant and graft (~07/18/17) S/P coronary artery stent placement Family History Summary Family History (Reviewed 04/29/24 @ 10:41 by Zulema Olson CHIEF OPHTHALMIC TECHNICIAN, CHIEF OPHTHALMIC TECHNICIAN-C) Mother Heart disease Cancer Skin cancer Father Cancer Skin cancer Brother Cancer Prostate cancer Social History Smoking History Years Smokin Hx Tobacco Use: Yes (1 cigar every 2 weeks.) Alcohol Use Alcohol Usage: No Occupation Occupation (List type of work in comments):: Retired Social Environment Status Marital Status: Current Living Arrangements Living Environment:: Spouse Safety Do you feel safe in your surroundings?: Yes Assistance Do you need any assistance at home?: no Review of Systems Review of Systems Hints Review of Present Symptoms: Reports Shortness of Breath with Exertion, Angina, Appetite - Normal, Appetite - Special Diet and Sleep - Normal; Denies Shortness of Breath at Rest, PVD, Operative Discomfort, Wound Healing, Dizziness/Lightheadedness, Fatigue, Heart Arrhythmia/Irregularities or Sexual Changes Pain Is Patient Pain Free?: Yes Risk Factor Assessment Chief Complaint Chief Complaint: Angina Vital Signs Pulse Ox: 97 Blood Pressure: 132/64 Pulse Pulse Rate: 58 Hypertension How long have you been treated?: 7 yrs Blood Pressure Sitting - Right Arm: 132/64 Obesity Height: 5 ft 8 in Weight:: 218 lb Weight in Pounds: 218.0 lbs Body Mass Index (BMI): 33.1 Nutritional Referral for Obesity: No Physical Inactivity Physical Inactivity: Reg Exercise 30 min/day Risk Stratification Risk Guidelines: Lowest Risk: Risk Factor for Smoking, Moderate Risk: Risk Factor for Sedentary Lifestyle and Risk Factor for Depression and Highest Risk: Risk Factor for Dyslipidemia, Risk Factor for Diabetes, Risk Factor for Obesity and Risk Factor for Hypertension For Smoking Smoking Risk Guidelines For Dyslipidemia Dyslipidemia Risk Guidelines For Diabetes Mellitus Diabetes Risk Guidelines For Obesity/Overweight Obesity/Overweight Risk Guidelines For Hypertension Hypertension Risk Guidelines For Sedentary Lifestyle Sedentary Lifestyle Risk Guidelines For Depression Depression Risk Guidelines Family History Family History (Reviewed 04/29/24 @ 10:41 by Zulema Olson CHIEF OPHTHALMIC TECHNICIAN, CHIEF OPHTHALMIC TECHNICIAN-C) Mother Heart disease Cancer Father Cancer Brother Cancer Motivation Motivation to Participate On a scale of 1 to 10, how prepared are you to commit to attending program?: 9 What do you see as barriers to successfully being able to complete the program?: nothing What do you see as the benefits of succesfully completing the program? In other words, what do you hope to get out of participating in the program?: more energy, stronger Are there issues you are dealing with that will interfere with completing the program?: no Do you have a spouse or signficant other, family or friends who will help support you to complete the program?: yes
--- NOTE | 2025-03-25 08:20 | CR.ITP_ITS ---
Diagnosis General Information Admitting Diagnosis: angina Personal Learning Style:: Audio/Visual Barriers to Learning: No Barriers Stage of change r/t lifestyle modifications:: Contemplation Gave educational material for:: Treating Heart Disease, How The Heart Works, What it means to have Heart Disease, How Coronary Artery Disease is Diagnosed, Heart Procedures, What Heart Medications Do, Risk Factors & Modifications, Living an Active Life, Nutrition, Emotions & Heart Disease, Stress Management & Relaxation and Sleep Disorders & Heart Disease Education/Goals Cardiac Rehabilitation Goals Personal Goals: Initial Assessment: Improve energy level, Improve muscle strength and endurance and Control risk factors (learn risk factor modification) Scale for measuring improvement of personal goals Diagnosis & Disease Process Outcomes/Goals: Pt IDs own risk factors & lifestyle modifications by Session 10, Verbalizes symptoms of angina & response by session 3., Pt independently manages and Other Additional Outcomes/Goals: Plan/Interventions: Assist Pt to ID & engage in lifestyle modification to reduce CVD risk, Instruct on individual risk factors, Review symptoms of angina & emergency actions, Review secondary diagnosis & identify educational needs. and Other see comment 30 day Reassessments:: Not Met 30 day Reassessments:: Not Met 30 day Reassessments:: Not Met 30 day Reassessments:: Not Met Final Reassessments:: Not Met Safety Referral to Physical Therapy: No Referral to [facility] Case Management: No Fall Risk Assessed:: Yes Assistive Devices:: None Exercise - Initial Assessment Visit Date of Eval: 03/25/25 (initial eval ) Mets: Pre-: >3 METS for 30 minutes by discharge, >5 METS for 30 minutes by discharge, >7 METS for 30 minutes by discharge and Unable to meet goal due to: (see comment below) Physician Prescribed Exercise Modalities: Treadmill, Rower, Schwinn Airdyne AD-7, SciFit Stepper, SciFit Pro- II Ergometer and SciFit Lateral Front End Loader Driver Frequency: 3x/week for 12 weeks [36 sessions] Intensity: 60-80% of age predicted maximum heart rate reserve Duration: 30 - 45 minutes Current METSs:: 3 Target Heart Rate:: 86-108 Resting Blood Pressure: 132/64 EKG Type: SB w/ PAC Outcomes & Goals Goals:: Verbalizes understanding of THR, RPE & goal METS by session 6, Documents in home exercise log/reports 30 min aerobic 5 day/wk by DC, Demonstrates accurate pulse taking by DC and Other additional outcome/goals: see below Intervention & Plan Exercise Program Goals: Instruct on personal THR & RPE, Instruct on MET level & personal MET goal, Show patient to take own pulse /validate performance until accurate, Instruct on home exercise and Other additional plan/int Physical Activity Home Exercise Physical Activity - Home Exercise: Safe Exercise, Warm-up, Self-monitoring, Cool-Down, Home Exercise > 30 min Daily and Sitting Time <3 hours/daily Outcomes & Goals Outcomes/Goals: Demonstrates correct Warm-up/exercise Cool-Down (S3) if = 2.5 METs, Verbalizes symptoms of exercise intolerance by Session 3 (S3), Demonstrate safe equipment use (S3) & follows exercise prescrition (6) and Other: See below Intervention & Plan Plan/Intervention: Instruct warm-up & cool-down if exercising at > 2 METs, Instruct on symptoms of exercise intolerance & actions to take, Instruct & monitor on saf, Assess intial functional capacity & safety risk and Other See below Nutrition - Initial Assessment Program Goals Nutrition Program Goals Patient has diagnosis of Hyperlipidemia (ICD E78)?: Yes Visit Date of Eval: 03/25/25 (initial eval. Nutrition score of 3) Cholesterol/Lipids (Other Core Measures) Determine presence & major risk factors that modify LDL goal: Cigarette smoking, Hypertension or hypertensive medication, Low HDL cholesterol <40 mg/dL*, Family history of premature CHD in Male < 55 years: female <65 yearsFa and Age men > 45 years; women >/= 55 years Outcomes/Goals: Pt IDs own risk factors & lifestyle modifications by Session 10, Verbalizes symptoms of angina & response by session 3., Pt independently manages and Other Additional Outcomes/Goals: Intervention/Plan: Advocate for lipid panel cholesterol medication if applicable, Instruct on personal lipid levels & lipid goals/NCEP guidelines, Instruct on cholesterol and Other additional plan/int Diabetes (Other Core Measures) Diabetes Type: Not Applicable Weight Mgt (Other Care) Height: 5 ft 8 in Weight:: 218 lb BMI: 33.1 Diagnosis Overweight/Obesity BMI> 30% ICD-10 E66: Yes Diagnosis High BMI/Morbid Obesity BMI> 35% ICD-10 Z68: No Outcomes/Goals: Pt sets, maintains & shows weight loss goal & trend during rehab and Other additional outcomes/goals Intervention/Plan: Instruct on ideal BMI & set weight loss goal w/patient, Assist pt to ID & incorporate diet changes for weight loss by S9, Refer to Structured Weight Loss program as appropriate, Encourage goal of using 250- 300dcal per session for weight loss and Other additional plan/interventions Healthy Eating Habits Will attend diet classes:: Yes Outcomes/Goals:: Consume diet rich in vegs,fruits,whole grain/high fiber,fish,lean meat, Limit sat/trans fats,cholesterol & added salts & sugars and Other additional outcome/goals: Intervention/Plan:: Assess current eating habits and Other Additional plan/interventions Education Gave educational materials for:: Signs & symptoms of hypoglycemia, Signs & symptoms of hyperglycemia, Relate diabetes to coronary artery disease and Healthy eating Core - Initial Assessment Visit Date of Eval: 03/25/25 (initial eval ) Medication Compliance Preventative Medication(s):: Aspirin H/O mental health issues: depression, anxiety, or addiction?: No Doesn’t believe in the benefits of treatment?: No Believes medications are unnecessary or harmful?: No Has a concern about medication side effects?: No Expresses concern over the cost of medications?: No Outcomes/Goals: Verbalizes medications,desired effect & common side effects @ DC, Pt self-reports following medication regimen, Keeps card in wallet w/medications listed by DC and Other additional outcome/goals: Interventions/plans: Instruct on medication effects & side effects, Review medication list w/patient every two weeks, Instruct importance of taking meds as ordered & assist problem solving and Other additional Tobacco Use Tobacco Use: Cigars (1 every 2 weeks for 40 years.) Years Smokin Outcomes/Goals: Smoking cessation achieved or maintained by discharge, Identify aids/strategies for achieving smoking cessation by session 6 and Other additional outcome/goals Interventions/plan: Instruct on effects of smoking & provide smoking cessation resource, Assist pt to set quit date & provide encouragement, Assist pt to develop strategies to achieve/maintain quit date, Assist pt w/nicotine replacement & medication for cessation success and Other additional plan/interve ntions Hypertension Hypertension Diagnosis:: Hypertension ICD-10 I10 Resting Blood Pressure:: 132/64 [place] [employer] Hypertension Guidelines Outcomes/Goals: Able to verbalize/achieve optimal blood pressure <130/80, Incorporates diet changes & exercise for blood pressure control by DC and Other additional outcomes/goals Interventions/plan: Instruct on optimal blood pressure, hypertension & medications, Instruct on effects of sodium, alcohol, stress, exercise &hypertension and Other additional plan/interventions Tobacco Cessation Referral Education Schedule Given:: Yes Psychosocial - Initial Assess VIsit Date of Eval: 03/25/25 (initial eval ) History of previous Mental disease:: No Psychosocial Test Tool Used:: [employer] QOL Cardiac and PHQ-9 Questionnaire phq-9 Severity See PHQ-9 Score: 3 Referral to Behavioral Health PS - Interventions: Yes: Attend Stress Management Classes Outcomes/Goals: See list Psychosocial Outcomes/Goals:: ID's personal stressors & 2 strategies to manage stress by discharge and Other Additional outcome/goals: Intervention/Plan: See List Interventions/Plan:: Assess stressors,coping strategies & signs of derpression on admission, Instruct/assist pt to develop coping & personal stress Mgt strategies, Refer to Behavioral Health if appropriate, Refer to Physician if appropriate, Instruct patient to recognize signs & symptoms of depression, Instruct patient to recog and Other additional plan/intervention Patient Health Questionnaire PHQ-9 Screening Initial Assessment: 1. Little interest or pleasure in doing things: Not at all 2. Feeling down, depressed, or hopeless: Not at all 3. Trouble falling or staying asleep, or sleeping too much: Several days 4. Feeling tired or having little energy: More than half the days 5. Poor appetite or overeating: Not at all 6. Feeling bad about yourself -- or that you are a failure or have let yourself or your family down: Not at all 7. Trouble concentrating on things, such as reading the newspaper or watching television: Not at all 8. Moving or speaking so slowly that other people could have noticed. Or the opposite - being so fidgety or restless that you have been moving around a lot more than usual: Not at all 9. Thoughts that you would be better off , or of hurting yourself in some way: Not at all How difficult have these problems made it for you to do your work, take care of things at home, or get along with other people?: Not difficult at all Total Score: 3 Nutrition Survey Nutrition Survey Initial: Have you lost >10 lbs over the past 2 months without trying?: No Are you following a special diet at home for diabetes, low fat, or low salt?: No Are you interested in meeting with a dietitian for help understanding your diet?: No Do you eat less than 3 meals a day?: Yes Do you eat fatty meats (vega, sausage, ribs, etc), fried foods, desserts, large amounts of salad dressings, margarine, butter, or cheese most days?: No Do you have food allergies? [Enter types in comment field]: Yes Do you eat in restaurants more than 3 times a week?: No Do you season food with salt, seasoning salt, or garlic salt?: No Do you used canned, boxed, frozen meals, or soups, seasoning packets?: Yes Total Score:: 3 Exercise - 30-day Assessment Physician Prescribed Exercise Modalities: Treadmill, Rower, Schwinn Airdyne AD-7, SciFit Stepper, SciFit Pro- II Ergometer and SciFit Lateral [place] Exercise - 60-day Assessment Physician Prescribed Exercise Modalities: Treadmill, Rower, Schwinn Airdyne AD-7, SciFit Stepper, SciFit Pro- II Ergometer and SciFit Lateral [place] Exercise - 90-day Assessment Physician Prescribed Exercise Modalities: Treadmill, Rower, Schwinn Airdyne AD-7, SciFit Stepper, SciFit Pro- II Ergometer and SciFit Lateral [place] Exercise - Final/Discharge Physician Prescribed Exercise Modalities: Treadmill, Rower, Schwinn Airdyne AD-7, SciFit Stepper, SciFit Pro- II Ergometer and SciFit Lateral Front End Loader Driver Frequency: 3x/week for 12 weeks [36 sessions] Intensity: 60-80% of age predicted maximum heart rate reserve Current METSs:: 3 Target Heart Rate:: 86-108 Nutrition - 30-Day Assessment Weight Mgt (Other Care) Height: 5 ft 8 in Weight:: 218 lb BMI: 33.1 Nutrition - 60-Day Assessment Weight Mgt (Other Care) Height: 5 ft 8 in Weight:: 218 lb BMI: 33.1 Core - 30-Day Assessment Tobacco Use Years Smokin Core - Final Assessment Hypertension Resting Blood Pressure:: 132/64 [place] [employer] Hypertension Guidelines Core - 60-Day Assessment Hypertension Resting Blood Pressure:: 132/64 [place] [employer] Hypertension Guidelines Psychosocial - 30-Day Assess Referral to Behavioral Health PS - Interventions: Yes: Attend Stress Management Classes Psychosocial - 60-Day Assess Referral to Behavioral Health PS - Interventions: Yes: Attend Stress Management Classes Psychosocial - 90-Day Assess Referral to Behavioral Health PS - Interventions: Yes: Attend Stress Management Classes Psychosocial - Final Assessmen Psychosocial Test phq-9 Severity See PHQ-9 Score: 3 Referral to Behavioral Health PS - Interventions: Yes: Attend Stress Management Classes Nutrition - 90-Day Assessment Weight Mgt (Other Care) Height: 5 ft 8 in Weight:: 218 lb BMI: 33.1 Nutrition - Final Assessment Program Goals Patient has diagnosis of Hyperlipidemia (ICD E78)?: Yes Weight Mgt (Other Care) Height: 5 ft 8 in Weight:: 218 lb BMI: 33.1
[2025-03-25 08:41] VITALS: BMI 33.1
[2025-03-25 08:44] VITALS: BP 132/64; PULSE 58; O2SAT 97
[2025-03-25 09:02] VITALS: BP 132/64; BMI 33.1
[2025-03-25 09:10] VITALS: BP 132/64
== END | disposition home or self-care (01) ==
LOC: CR 08:12
PROVIDERS: PCP Internal Medicine; Referring Provider Internal Medicine Interventional Cardiology; Visit Provider Internal Medicine Interventional Cardiology
DX: Z00.00 Encounter for general adult medical examination without abnormal findings (principal)

== ENCOUNTER 2025-04-10 15:15 | Outpatient (RCR) | payer MEDICARE, OTHER, SELFPAY ==
[2025-03-25 09:02] VITALS: BMI 33.1
== END 2025-04-10 23:59 ==
LOC: CR 15:15
PROVIDERS: PCP Internal Medicine
DX: R07.9 Chest pain, unspecified (principal); I50.810 Right heart failure, unspecified; I20.9 Angina pectoris, unspecified
CPT/HCPCS: 93798

== ENCOUNTER → 2025-04-20 | Outpatient (CLI) | payer MEDICARE, OTHER, SELFPAY ==
[2025-03-25 09:02] VITALS: BMI 33.1
--- OUTSIDE RECORDS SUMMARY | 2025-04-20 19:54 | XMS RPT_ITS | CCD ---
Author Organization [facility] Care Team Providers Care Sampler First Name Role Phone Kelby Suarez Unavailable Unavailable Willem Madsen. Unavailable Unavailable Willem Madsen MD Primary Care Provider Josi King RN Unavailable [phone] Bhaskar RN, Danna Herman Unavailable Unavailable Willem Madsen MD Primary Care Provider Bhaskar RN, Danna L Unavailable Unavailable Bhaskar RN, Danna L Unavailable Unavailable Bhaskar RN, Danna L Unavailable Unavailable Florence Baez RN Unavailable Willem Madsen MD Primary Care Provider Nestor RN, Florence Unavailable Nestor DAS, Florence Unavailable Dr. Willem Madsen Primary Care Provider Whintey FLEXOGRAPHIC PRESS HELPER, FLEXOGRAPHIC PRESS HELPER-C Zulema Attending Provider Whitney FLEXOGRAPHIC PRESS HELPER, FLEXOGRAPHIC PRESS HELPER-C Zulema Referring Provider Dr. Willem Madsen Referring Provider Rhonda NOVAK, SCARLET Bridges Attending Provider Nestor DAS, Florence Unavailable Pily Glass RN Unavailable Unavailable Marco Antonio Landry MD Unavailable Marco Antonio Landry MD Unavailable Alban Hurtado RN Unavailable MARÍA ELENA COOK Admitting Unavailable MARÍA ELENA COOK Attending Unavailable WILLEM MADSEN Primary Care Unavailable THOM DOBBINS Admitting Unavailable THOM DOBBINS Attending Unavailable MADSEN, YADI Primary Care Unavailable NAEL PALMER Attending Unavailable MADSEN, YADI Primary Care Unavailable MADSEN, YADI Primary Care Unavailable STEPHANIE DVAIS Referring Unavailable MADSEN, YADI Primary Care Unavailable PROVIDER, UNKNOWN Referring Unavailable ELVA GRIER Referring Unavailable MADSEN, YADI Primary Care Unavailable PROVIDER, UNKNOWN Referring Unavailable MADSEN, YADI Primary Care Unavailable MADSEN, YADI Primary Care Unavailable PROVIDER, UNKNOWN Referring Unavailable PROVIDER, UNKNOWN Referring Unavailable MADSEN, YADI Primary Care Unavailable THOM DOBBINS Admitting Unavailable THOM DOBBINS Attending Unavailable TENA, YADI Primary Care Unavailable MADSEN, YADI Primary Care Unavailable THOM DOBBINS Attending Unavailable THOM DOBBINS Admitting Unavailable Tena GIBSON, Willem Pretty Primary Care Provider Chapito DAS, Rocio Unavailable Nestor DAS, Florence Unavailable Chapito DAS, Rocio Christelle Unavailable Sarmad THERAPEUTIC RECREATION SPECIALIST.EMISSIONS TECHNICIAN, Kristen M Unavailable MADSEN, YADI Primary Care Unavailable ESSENCE RANKIN Admitting Unavailable DEMETRIUS GOLDBERG Consulting Unavailable BRIAN LAUREN Attending Unavailable DEMETRIUS GOLDBERG Attending Unavailable SELF Referring Unavailable MADSEN, YADI Primary Care Unavailable MADSEN, YADI Primary Care Unavailable STAS ABISAI Referring Unavailable MADSEN, YADI Primary Care Unavailable STAS, ABISAI Referring Unavailable MADSEN, YADI Primary Care Unavailable MCCLELLAND, ABISAI Referring Unavailable MADSEN, YADI Primary Care Unavailable MADSEN, YADI Attending Unavailable MADSEN, YADI Primary Care Unavailable MCCLELLAND, ABISAI Referring Unavailable MADSEN, YADI Primary Care Unavailable MCCLELLAND, ABISAI Referring Unavailable MADSEN, YADI Primary Care Unavailable DANITA DRIVER Attending Unavailable MADSEN, YADI Primary Care Unavailable MCCLELLAND, ABISAI Referring Unavailable MADSEN, YADI Primary Care Unavailable LADARIUS URIARTE Referring Unavailable MADSEN, YADI Primary Care Unavailable MCCLELLAND, ABISAI Referring Unavailable MADSEN, YADI Primary Care Unavailable MCCLELLAND, ABISAI Referring Unavailable MADSEN, YADI Primary Care Unavailable MCCLELLAND, ABISAI Referring Unavailable MCCLELLAND ABISAI Attending Unavailable MADSEN, YADI Primary Care Unavailable MCCLELLAND, ABISAI Referring Unavailable MADSEN, YADI Primary Care Unavailable YONIBENNIECHARLENE BRIAN Referring Unavailable MADSEN, YADI Attending Unavailable MADSEN, YADI Primary Care Unavailable NAKUL CURYR Referring Unavailable MADSEN, YADI Primary Care Unavailable SELF Referring Unavailable MADSEN, YADI Primary Care Unavailable MCCLELLANDOLIVERABISAI Referring Unavailable MADSEN, YADI Primary Care Unavailable DEMETRIUS GOLDBERG Referring Unavailable DEMETRIUS GOLDBERG Attending Unavailable MADSEN, YADI Primary Care Unavailable SELF Referring Unavailable NAKUL CURRY Attending Unavailable MADSEN, YADI Primary Care Unavailable MADSEN, YADI Referring Unavailable MADSEN, YADI Primary Care Unavailable MCCLELLAND, ABISAI Referring Unavailable MADSEN, YADI Primary Care Unavailable MADSEN, YADI Attending Unavailable MADSEN, YADI Primary Care Unavailable MCCLELLAND, ABISAI Referring Unavailable MADSEN, YADI Primary Care Unavailable MCCLELLAND, ABISAI Referring Unavailable MADSEN, YADI Primary Care Unavailable DANITA DRIVER Referring Unavailable LADARIUS URIARTE Attending Unavailable Madsen, Willem Primary Care Unavailable JEFFRY HUTSON Attending Unavailable JEFFRY HUTSON Referring Unavailable Madsen, Willem Primary Care Unavailable JEFFRY HUTSON Attending Unavailable JEFFRY HUTSON Referring Unavailable Madsen, Willem Primary Care Unavailable Madsen, Willem Referring Unavailable Zulema Olson NP Attending Unavailable Madsen, Willem Referring Unavailable Madsen, Willem Primary Care Unavailable Whitney COX, Zulema Attending Unavailable Demetrius Goldberg Referring Unavailable Madsen, Willem Primary Care Unavailable Demetrius Goldberg Attending Unavailable Madsen, Willem Primary Care Unavailable Nakul Curry Attending Unavailable Nakul Curry Referring Unavailable Allergies Allergy Classification Reported Allergen(s) Allergy Type Date of Onset Reaction(s) Facility (11 sources) HMG-CoA reductase inhibitor; Translations: [[id number] REDUCTASE INHIBITORS] Drug Allergy 1 Itching [facility] (3 sources) Adlhclf-Sef-Bfb Reductase Inhibitor; Translations: [Miiijjm-Xqv-Ofw Reductase Inhibitor] Propensity to adverse reactions 1 myalgias [facility] (20 sources) HMG-CoA reductase inhibitor Drug Allergy 1 Itching [facility] Medications Current Medications Medication Drug Class(es) Dates Sig (Normalized) Sig (Original) amoxicillin 500 mg oral tablet (20 sources) Penicillin-class Antibacterial Start: 08-13-2023 take 4 tablets by mouth every hour Amoxicillin 500 mg tablet Take 4 tablets by mouth as directed. Take 2g Amoxicillin 1 hr prior to dental procedure. 4 tablet 1 08/13/2023 Active Comment on above: Take 4 tablets by mo [facility] as directed. Take 2g Amoxicillin 1 hr prior to dental procedure. aspirin 81 mg chewable tablet (20 sources) Platelet Aggregation Inhibitor, Nonsteroidal Anti-inflammatory Drug Start: 04-07-2023 take 1 tablet by mouth once daily in the evening aspirin 81 mg chewable tablet Chew and swallow 1 tablet by mouth once daily. 30 tablet 2 04/07/2023 3:21 PM EDT 04/07/2023 Active Start: 09-30-2007 End: 04-06-2023 aspirin(ECOTRIN LOW STRENGTH 81 MG TAB) Indications: Mixed hyperlipidemia Take one(1) tablet daily. 0 09/30/2007 04/06/2023 Discontinued Comment on above: Take one(1) tablet d aily. Chew and swallow 1 t ablet by mouth once daily. cephalexin 500 mg oral capsule (2 sources) Cephalosporin Antibacterial Start: 2 End: 2 take 1 capsule by mouth twice daily cephALEXin (KEFLEX) 500 mg capsule Take 1 capsule by mouth twice daily for 7 days. 14 capsule 0 09/30/2021 10/07/2021 Active Comment on above: Take 1 capsule by [facility] twice daily for 7 days. cholecalciferol, vitamin D3, (VITAMIN D3 ORAL) (20 sources) cholecalciferol, vitamin D3, (VITAMIN D3 ORAL) Take by mouth once daily. Active cholecalciferol, vitamin D3, (VITAMIN D3 ORAL) Take by mouth once daily. 0 Active End: 01-11-2022 take 1 dose by mouth twice daily cholecalciferol, vitamin D3, (VITAMIN D3 ORAL) Take 1 Dose by mouth twice daily. 2000mg in morning 1000 mg at night 0 01/11/2022 Discontinued take 1 dose by mouth twice daily cholecalciferol, vitamin D3, (VITAMIN D3 ORAL) Take 1 Dose by mouth twice daily. 2000mg in morning 1000 mg at night 0 Active Comment on above: Take 1 Dose by mouth twice daily. 2000mg in morning 1000 mg at night ciprofloxacin 500 mg oral tablet (1 source) Quinolone Antimicrobial Start: End: take 1 tablet by mouth twice daily ciprofloxacin HCl (CIPRO) 500 mg tablet Take 1 tablet by mouth twice daily for 10 days. 10 tablet 0 10/03/2021 10/03/2021 Discontinued Comment on above: Take [facility] for 10 days. ergocalciferol 1.25 mg oral capsule (20 sources) Provitamin D2 Compound Start: End: take 1 capsule by mouth every week ergocalciferol 50,000 unit capsule (VITAMIN D2, DRISDOL) Take 1 capsule by mouth one time a week for 12 doses. 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 12 capsule 0 11/09/2022 Suspended Comment on above: Take 1 capsule by [facility] one time a week for 12 doses. 1 ml evolocumab 140 mg/ml auto-injector (20 sources) PCSK9 Inhibitor Start: 11-01-19 inject 140 mg by subcutaneous injection every other week REPATHA SURECLICK 140 mg/mL pen injector Indications: Mixed hyperlipidemia , Coronary arteriosclerosis in [place] artery , Liver transplant recipient (HCC) INJECT 140 MG SUBCUTANEOUSLY EVERY 2 WEEKS. 6 each 3 10/31/2024 Active Start: 05-23-2023 End: 12-03-2023 inject 140 mg by subcutaneous injection every other week REPATHA SURECLICK 140 mg/mL pen injector Indications: Mixed hyperlipidemia , Coronary arteriosclerosis in [place] artery , Liver transplant recipient (HCC) INJECT 140 MG SUBCUTANEOUSLY EVERY 2 WEEKS. 6 Each 3 12/03/2023 Active Comment on above: Inject 140 mg subcut aneously every 2 weeks. finasteride 5 mg oral tablet (3 sources) 5-alpha Reductase Inhibitor Start: take 5 mg by mouth once daily Finasteride Active 5 MG PO DAILY May 22, 2022 12:00am Start: 07-17-2017 End: 11-21-2021 take 5 mg by mouth once daily Finasteride Active 5 MG PO DAILY July 17, 2017 8:42pm furosemide 20 mg oral tablet (20 sources) Loop Diuretic Start: 10-01-2023 End: 02-06-2025 take 1 tablet by mouth once daily furosemide (LASIX) 20 mg tablet Indications: Chronic diastolic congestive heart failure (HCC) Take 1 tablet by mouth once daily. 90 tablet 3 02/06/2025 Active Start: 04-16-2023 End: 04-18-2023 take 1 tablet by mouth once daily furosemide (LASIX) 40 mg tablet Indications: Chronic diastolic congestive heart failure (HCC) Take 1 tablet by mouth once daily. 30 tablet 11 04/16/2023 04/18/2023 Discontinued (Course of therapy completed) Start: 02-27-2023 End: 07-21-2023 take 2 tablets by mouth once daily, then take 1 tablet by mouth once daily, then take 2 tablets by mouth every other day furosemide (LASIX) 20 mg tablet Take 2 tablets by mouth once daily. Patient to take 1 tablet once daily and double dose to 2 tablets every other day. 60 tablet 5 02/27/2023 07/21/2023 Suspended Start: 01-01-2023 End: 02-27-2023 take 1 tablet by mouth once daily, then take 1 tablet by mouth once daily, then take 2 tablets by mouth every other day furosemide (LASIX) 20 mg tablet Take 1 tablet by mouth once daily. Patient to take 1 tablet once daily and double dose to 2 tablets every other day. 60 tablet 1 01/29/2023 02/27/2023 Discontinued Start: 11-14-2021 End: 01-10-2023 take 1 tablet by mouth every other day furosemide (LASIX) 20 mg tablet Take 1 tablet by mouth every other day. 15 tablet 3 12/11/2022 01/10/2023 Active Start: 09-16-2021 End: 09-27-2022 take 1 tablet by mouth once daily furosemide (LASIX) 20 mg tablet Indications: Portal hypertension with esophageal varices (HCC) TAKE 1 TABLET BY MOUTH EVERY DAY 90 tablet 2 04/06/2022 09/27/2022 Discontinued take 1 tablet by [facility] twice daily furosemide (LASIX) 40 mg tablet Take 40 mg by mouth twice daily. 0 Active Comment on above: Take 1 tablet by [facility] once daily. TAKE 1 TABLET BY [facility] EVERY DAY Take 40 mg by mouth twice daily. Take 20 mg by mouth every other day. Take 1 tablet by [facility] every other day. Take 1 tablet by [facility] once daily. Patient to take 1 tablet once daily and double dose to 2 tablets every other day. Take 2 tablets by [facility] once daily. Patient to take 1 tablet once daily and double dose to 2 tablets every other day. ibuprofen 200 mg oral tablet (2 sources) Nonsteroidal Anti-inflammatory Drug Start: take 200 mg by mouth every eight hours Ibuprofen Active 200 MG PO Q8H October 07, 2018 10:01am lactobacillus rhamnosus gg [id number] unt oral capsule (20 sources) Start: take 1 capsule by mouth once daily lactobacillus rhamnosus (CULTURELLE) 10 billion cell capsule Take 1 capsule by mouth once daily. 04/13/2023 Active Comment on above: Take 1 capsule by [facility] once daily. NIFEdipine 30 mg osmotic 24 hr extended release oral tablet (20 sources) Dihydropyridine Calcium Channel Analia Start: End: take 1 tablet by mouth once daily NIFEdipine ER (PROCARDIA XL) 30 mg 24 hr tablet Indications: Primary hypertension Take 1 tablet by mouth once daily. 90 tablet 3 02/06/2025 Active Comment on above: Take 1 tablet by [facility] once daily. take 1 tablet by [facility] every day nystatin [id number] unt/ml oral suspension (9 sources) Polyene Antifungal Start: End: take 5 mL by mouth four times daily nystatin (MYCOSTATIN) 100,000 units/mL oral liquid Shake well and take 5 mL by mouth four times daily for 63 doses. Swish and swallow. 315 mL 0 04/06/2023 04/23/2023 Active Comment on above: Shake well and take 5 mL by mouth four times daily for 63 doses. Swish and swallow. pantoprazole 40 mg delayed release oral tablet (20 sources) Proton Pump Inhibitor Start: 023 End: 025 take 1 tablet by mouth once daily pantoprazole DR (PROTONIX) 40 mg tablet Take 1 tablet by mouth once daily. 30 tablet 5 02/13/2025 Active Start: 04-06-2023 take 1 tablet by kaylee [facility] once daily pantoprazole DR (PROTONIX) 40 mg tablet Take 1 tablet by mouth once daily. 30 tablet 1 04/06/2023 Active Comment on above: Take 1 tablet by kaylee [facility] once daily. polyethylene glycol 3350 [id number] mg / potassium chloride 2970 mg / sodium bicarbonate 6740 mg / sodium chloride 5860 mg / sodium sulfate 14907 mg powder for oral solution (7 sources) Osmotic Laxative Start: 01-07-20 peg 3350-Electrolytes (GOLYTELY) 236-22.74-6.74 -5.86 gram suspension Refer to printed prep instructions from your provider. 4000 mL 01/06/2025 Active sulfamethoxazole 800 mg / trimethoprim 160 mg oral tablet (20 sources) Dihydrofolate Reductase Inhibitor Antibacterial, Sulfonamide Antimicrobial Start: 12-03-19 End: 11-21-19 take 1 tablet by mouth once sulfamethoxazole-tr imethoprim (BACTRIM DS) 800-160 mg per tablet Take 1 tablet by mouth every Sunday, Sunday, and Sunday. 13 tablet 5 01/16/2025 11:58 AM EDT 11/21/2024 Active Start: 06-27-2023 End: 11-30-2023 take 1 tablet by mouth once sulfamethoxazole-trimethoprim (BACTRIM D S) 800-160 mg per tablet Take 1 tablet by mouth every Sunday, Sunday, and Sunday. 12 tablet 2 09/12/2023 11/30/2023 Discontinued Start: 04-09-2023 take 1 tablet by kaylee [facility] once sulfamethoxazole-trimethoprim (BACTRIM D S) 800-160 mg per tablet Take 1 tablet by mouth every Sunday, Sunday, and Sunday. 12 tablet 2 04/09/2023 Active Start: 04-09-2023 take 1 tablet by kaylee [facility] once sulfamethoxazole-trimethoprim (BACTRIM D S) 800-160 mg per tablet Take 1 tablet by mouth every Sunday, Sunday, and Sunday. 12 tablet 2 04/09/2023 Active Comment on above: Take 1 tablet by kaylee [facility] every Sunday, Sunday, and Sunday. tacrolimus 1 mg oral capsule (20 sources) Calcineurin Inhibitor Immunosuppressant Start: 04-14-20 take 2 capsules by mouth once daily in the morning, then take 1 capsule by mouth once daily in the evening tacrolimus IR (PROGRAF) 1 mg capsule Take 2 capsules by mouth daily at 6 am AND 1 capsule daily at 6 pm. 90 capsule 11 01/16/2025 11:58 AM EDT 04/14/2024 Active Start: 07-04-2023 End: 04-14-2024 take 1 capsule by mouth twice daily tacrolimus IR (PROGRAF) 1 mg capsule Take 2 capsules by mouth two times a day. 120 capsule 11 08/02/2023 04/14/2024 Discontinued (Adjust Sig - Block E-Cancel) Start: 07-04-2023 End: 02-08-2024 take 1 capsule by mouth twice daily tacrolimus IR (PROGRAF) 0.5 mg capsule Take 1 capsule by mouth two times a day. Take with the 1 mg capsules for a total of 2.5 mg bid 60 capsule 3 08/02/2023 02/08/2024 Discontinued (Dosage adjustment) Start: 04-06-2023 End: 05-04-2023 take 1 capsule by mouth twice daily tacrolimus IR (PROGRAF) 1 mg capsule Take 3 capsules by mouth two times a day. 240 capsule 2 05/04/2023 Active Comment on above: Take 4 capsules by m outh two times a day. Take 3 capsules by m outh two times a day. Take 1 capsule by mo uth two times a day. Take with the 1 mg capsules for a total of 2.5 mg bid Take 2 capsules by m outh two times a day. Completed/Discontinued Medications Medication Drug Class(es) Dates Sig (Normalized) Sig (Original) acetaminophen 325 mg oral tablet (20 sources) Start: 08-09-2021 End: 09-27-2022 take 2 tablets by mouth every four hours as needed acetaminophen (TYLENOL) 325 mg tablet Take 2 tablets by mouth every 4 hours as needed for pain. 12 tablet 0 08/09/2021 09/27/2022 Discontinued Comment on above: Take 2 tablets by mo uth every 4 hours as needed for pain. acyclovir 400 mg oral tablet (18 sources) Herpesvirus Nucleoside Analog DNA Polymerase Inhibitor, Herpes Simplex Virus Nucleoside Analog DNA Polymerase Inhibitor, Herpes Zoster Virus Nucleoside Analog DNA Polymerase Inhibitor Start: 04-06-2023 take 1 tablet by mouth twice daily acyclovir (ZOVIRAX) 400 mg tablet Take 1 tablet by mouth two times a day. 60 tablet 2 04/06/2023 Active Comment on above: Take 1 tablet by kay[facility] two times a day. 1 ml alirocumab 150 mg/ml auto-injector (20 sources) PCSK9 Inhibitor Start: 07-01-2020 End: 04-06-2023 inject 150 mg by subcutaneous injection once alirocumab (PRALUENT PEN) 150 mg/mL Indications: Mixed hyperlipidemia Inject 150 mg subcutaneously every 2 weeks. Per [address] [facility]ter.in place of statin 0 07/01/2020 04/06/2023 Discontinued Start: 05-12-2019 End: 05-08-2022 Alirocumab (Praluent Pen) 15 0 mg/mL pen injector Active 150 MG SC every 2 weeks 2 May 08, 2022 2:50pm Start: 04-04-2018 End: 05-12-2019 Alirocumab (Praluent Pen) 75 mg/mL pen injector Discontinued 75 MG SC every 2 weeks May 02, 2019 9:24am May 12, 2019 10:16am Comment on above: Inject 150 mg subcut aneously every 2 weeks[address] Per [address] [facility]in place of statin carvedilol 3.125 mg oral tablet (20 sources) alpha-Adrenergic Analia, beta-Adrenergic Analia Start: End: 023 take 2 tablets by mouth twice daily at mealtime carvedilol (COREG) 3.125 mg tablet Indications: Coronary arteriosclerosis in [place] , Essential hypertension , Portal hypertension with esophageal varices (HCC) Take 2 tablets by mouth twice daily with meals. 120 tablet 0 07/17/2022 09/27/2022 Discontinued Start: 02-08-2021 End: 05-02-2022 take 3.125 mg by mouth twice daily in the morning, then take 6.25 mg by mouth in the evening Carvedilol Active 0 PO TWICE A DAY 135 May 02, 2022 8:28am 3.125 mg in the Am and 6.25 mg in the PM. Comment on above: Take 1 tablet by kaylee [facility] in morning, take 2 tablets in evening. Take 2 tablets by mo uth twice daily with meals. Take 2 tablet by kaylee [facility] in morning, take 2 tablets in evening. cholecalciferol 0.05 mg oral capsule (20 sources) Vitamin D Start: 01-11-2022 End: 02-07-2023 take 1 capsule by mouth once daily Cholecalciferol, Vitamin D3, (VITAMIN D-3) 50 mcg (2,000 unit) cap Take 1 capsule by mouth once daily. 90 capsule 3 09/29/2022 Active Start: 01-12-2021 Cholecalcifero l (Vitamin D3) Active 50 MCG PO DAILY January 12, 2021 9:52am 2,000 qam 1,000 qpm Start: 03-25-2020 End: 01-12-2021 take 1250 ug by mouth every week Cholecalciferol (Vitamin D3) Discontinued 1250 MCG PO EVERY WEEK March 25, 2020 7:22am January 12, 2021 9:52am Start: 07-17-2017 End: 04-04-2018 take 1000 [IU] by mouth once daily Cholecalciferol (Vitamin D3) Discontinued 1000 UNIT PO DAILY July 17, 2017 8:42pm April 04, 2018 2:22pm End: 04-07-2023 take 1 tablet by mouth once daily cholecalciferol (VITAMIN D-3) 50 mcg (2,000 unit) tablet Take 2,000 Units by mouth once daily. 0 04/07/2023 Discontinued Comment on above: Take 1 capsule by mo uth once daily. Take 2,000 Units by mouth once daily. clopidogrel 75 mg oral tablet (12 sources) P2Y12 Platelet Inhibitor Start: 8 End: take 1 tablet by mouth once daily Clopidogrel (Plavix) 75 mg tablet Discontinued 75 MG PO daily June 21, 2020 10:32am January 12, 2021 9:26am Start: 08-03-2017 End: 10-04-2017 Clopidogrel (Plavix) 75 mg t ablet Discontinued 0 PO daily 94 August 03, 2017 10:49am October 04, 2017 3:53pm 4 pills on day one then once a day after this PO QDAY, you will start this after you finish your current Rx for Brillinta docusate sodium 100 mg oral capsule (11 sources) Start: 08-09-2021 End: 01-11-2022 take 1 capsule by mouth every twelve hours as needed docusate sodium (COLACE) 100 mg capsule Take 1 capsule by mouth twice daily as needed for constipation. 60 capsule 0 08/09/2021 01/11/2022 Discontinued Comment on above: Take 1 capsule by [facility] twice daily as needed for constipation. fenofibrate 48 mg oral tablet (20 sources) Peroxisome Proliferator Receptor alpha Agonist Start: 10-07-2018 End: 09-27-2022 take 1 tablet by mouth once daily fenofibrate nanocrystallized (TRICOR) 48 mg tablet Indications: Mixed hyperlipidemia Take 1 tablet by mouth once daily. 90 tablet 3 05/15/2022 09/27/2022 Discontinued Comment on above: Take 1 tablet by [facility] once daily. 1 ml fentaNYL 0.05 mg/ml injection (1 source) Opioid Agonist Start: 02-12-2025 End: 02-12-2025 INTRAVENOUS, X (OR/PROCEDURE) PRN, Starting on Charlene 02/12/25 at 0951, Until Charlene 02/12/25 at 0951, Intraprocedure Fluad Quad (65yr up)(PF) 60 mcg (15 mcg x 4)/0.5mL IM syringe (flu vac (1 source) Start: 03-24-2021 End: 03-24-2021 Fluad Quad (65yr up)(PF) 60 mcg (15 mcg x 4)/0.5mL IM syringe (flu vac Discontinued 60 MCG IM ONCE 0.5 March 24, 2021 8:33am March 24, 2021 9:05am hydroCHLOROthiazide 25 mg oral tablet (2 sources) Thiazide Diuretic Start: 07-17-2017 End: 07-19-2017 take 25 mg by mouth once daily Hydrochlorothiazide Discontinued 25 MG PO DAILY July 17, 2017 8:42pm July 19, 2017 11:04am iv contrast (will be provided with radiology test) (20 sources) Start: 07-17-2022 End: 09-05-2022 iv contrast (will be provided with radiology test) CT LIVER Inject, intravenously, once for 1 dose.No IV access, insert saline lock prior to the beginning of sedation, infusion, injection of imaging exam. Discontinue saline lock post exam. If Pt. has a central line or IVAD, may access for administration according to line specific nursing protocol. Once exam is complete flush line and de-access according to line specific nursing protocol in the CT contrast administration guidelines link. 1 Each 0 07/17/2022 09/05/2022 Discontinued Start: 07-17-2022 iv contrast (w ill be provided with radiology test) CT LIVER Inject, intravenously, once for 1 dose.No IV access, insert saline lock prior to the beginning of sedation, infusion, injection of imaging exam. Discontinue saline lock post exam. If Pt. has a central line or IVAD, may access for administration according to line specific nursing protocol. Once exam is complete flush line and de-access according to line specific nursing protocol in the CT contrast administration guidelines link. 1 Each 0 07/17/2022 Active Comment on above: CT LIVER Inject, int ravenously, once for 1 dose.No IV access, insert saline lock prior to the beginning of sedation, infusion, injection of imaging exam. Discontinue saline lock post exam. If Pt. has a central line or IVAD, may access for administration according to line specific nursing protocol. Once exam is complete flush line and de-access according to line specific nursing protocol in the CT contrast administration guidelines link. lactulose 667 mg/ml oral solution (5 sources) Osmotic Laxative Start: 3 End: 3 take 30 mL by mouth three times daily lactulose 20 gram/30 mL solution Take 30 mL by mouth three times daily. 2700 mL 5 11/15/2022 12/15/2022 Comment on above: Take 30 mL by mouth three times daily. losartan potassium 25 mg oral tablet (4 sources) Angiotensin 2 Receptor Analia Start: 1 End: 1 take 25 mg by mouth once daily Losartan Discontinued 25 MG PO DAILY January 12, 2021 9:49am February 08, 2021 4:19pm Start: 07-19-2017 End: 10-04-2017 take 25 mg by mouth once daily Losartan Discontinued 2 5 MG PO DAILY July 19, 2017 11:03am October 04, 2017 3:53pm metOLazone 5 mg oral tablet (10 sources) Thiazide-like Diuretic Start: 01-15-2023 End: 02-07-2023 take 1 tablet by mouth once daily metOLazone (ZAROXOLYN) 5 mg tablet Take 1 tablet by mouth once daily for 6 days. 3 tablet 1 01/15/2023 02/07/2023 Discontinued Comment on above: Take 1 tablet by kayele once daily for 6 days. metoprolol tartrate 25 mg oral tablet (10 sources) beta-Adrenergic Analia Start: 09-06-2020 End: 02-08-2021 Metoprolol Tartrate Discontinued 0 .ROUTE .COMPLEX September 06, 2020 10:49am February 08, 2021 3:19pm TAKE 1/2 TABLET (12.5 MG) TWO TIMES A DAY Start: 07-19-2017 End: 09-06-2020 take 12.5 mg by mouth twice daily Metoprolol Tartrate Discontinued 12.5 MG PO TWICE A DAY September 23, 2019 9:14am September 06, 2020 10:49am 5 ml midazolam 1 mg/ml injection (1 source) Benzodiazepine Start: 02-12-2025 End: 02-12-2025 INTRAVENOUS, X (OR/PROCEDURE) PRN, Starting on Charlene 02/12/25 at 0951, Until Charlene 02/12/25 at 0951, Intraprocedure mycophenolate mofetil 250 mg oral capsule (20 sources) Start: 04-12-2023 End: 04-14-2024 take 2 capsules by mouth twice daily mycophenolate mofetil (CELLCEPT) 250 mg capsule Take 2 capsules by mouth two times a day. 120 capsule 5 02/05/2024 04/14/2024 Discontinued (Course of therapy completed) Start: 04-06-2023 take 4 capsules by m outh twice daily mycophenolate mofetil (CELLCEPT) 250 mg capsule Take 4 capsules by mouth two times a day. 240 capsule 2 04/06/2023 Active Comment on above: Take 4 capsules by m outh two times a day. Take 2 capsules by m outh two times a day. oxyCODONE hydrochloride 5 mg oral tablet (6 sources) Opioid Agonist Start: End: take 1 tablet by mouth every six hours as needed oxyCODONE IR (ROXICODONE) 5 mg immediate release tablet Indications: Post-operative pain Take 1 tablet by mouth every 6 hours as needed for up to 7 days. 28 tablet 0 04/07/2023 04/14/2023 Comment on above: Take 1 tablet by [facility] every 6 hours as needed for up to 7 days. perflutren lipid microspheres 1.3 mL in NaCl (PF) 0.9% 10 mL injection (DEFINITY) (20 sources) Start: End: perflutren lipid microspheres 1.3 mL in NaCl (PF) 0.9% 10 mL injection (DEFINITY) Start: 05-25-2022 End: 08-24-2023 perflutren lipid microsphere s 1.3 mL in NaCl (PF) 0.9% 10 mL injection (DEFINITY) predniSONE 5 mg oral tablet (18 sources) Start: 04-08-2023 predniSONE (DE LTASONE) 5 mg tablet Take 4 tablets by mouth once daily on 04/08-04/09, then take 3 tabs daily on , then take 2 tabs daily on 04/14-04/17, then take 1 tab daily on 04/18-04/21/23 32 tablet 0 04/08/2023 Active Start: 04-08-2023 predniSONE (DE LTASONE) 5 mg tablet Take 4 tablets by mouth once daily on , then take 3 tabs daily on , then take 2 tabs daily on 04/14-04/17, then take 1 tab daily on 04/18-04/21/23 32 tablet 0 04/08/2023 Active Comment on above: Take 4 tablets by [facility] once daily on , then take 3 tabs daily on , then take 2 tabs daily on , then take 1 tab daily on 04/18-04/21/23 rosuvastatin calcium 40 mg oral tablet (2 sources) HMG-CoA Reductase Inhibitor Start: End: take 40 mg by mouth at bedtime Rosuvastatin Discontinued 40 MG PO AT BEDTIME July 17, 2017 8:42pm September 19, 2017 10:02am 125 ml sodium chloride 9 mg/ml prefilled syringe (6 sources) Start: End: sodium chloride 0.9 % (flush) 10 mL (BD POSIFLUSH) spironolactone 50 mg oral tablet (20 sources) Aldosterone Antagonist Start: take 2 tablets by mouth once daily, then take 1 tablet by mouth once daily, then take 2 tablets by mouth every other day spironolactone (ALDACTONE) 50 mg tablet Take 2 tablets by mouth once daily. Patient to take 1 tablet once daily and double dose to 2 tablets every other day. 60 tablet 5 02/27/2023 Suspended Start: 01-01-2023 End: 02-27-2023 take 1 tablet by mouth once daily, then take 1 tablet by mouth once daily, then take 2 tablets by mouth every other day spironolactone (ALDACTONE) 50 mg tablet Take 1 tablet by mouth once daily. Patient to take 1 tablet once daily and double dose to 2 tablets every other day. 60 tablet 1 01/29/2023 02/27/2023 Discontinued Start: 11-14-2021 End: 01-10-2023 take 1 tablet by mouth every other day spironolactone (ALDACTONE) 50 mg tablet Take 1 tablet by mouth every other day. 15 tablet 3 12/11/2022 01/10/2023 Active Start: 09-16-2021 End: 09-27-2022 take 1 tablet by mouth once daily spironolactone (ALDACTONE) 50 mg tablet Indications: Portal hypertension with esophageal varices (HCC) TAKE 1 TABLET BY MOUTH EVERY DAY 90 tablet 2 04/06/2022 09/27/2022 Discontinued Comment on above: Take 1 tablet by kaylee th once daily. TAKE 1 TABLET BY KAYLEE TH EVERY DAY Take 50 mg by mouth every other day. Take 1 tablet by kaylee th every other day. Take 1 tablet by kaylee th once daily. Patient to take 1 tablet once daily and double dose to 2 tablets every other day. Take 2 tablets by mo [facility] once daily. Patient to take 1 tablet once daily and double dose to 2 tablets every other day. 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 100 capsule 1 11/09/2022 Suspended Comment on above: Take 1 capsule by mo uth once daily. Problems Active Problems Problem Classification Problem Date Documented Da te Episodic/Chronic Administrative/social admission (7 sources) Patient encounter status; Translations: [Counseling, unspecified] Episodic Blindness and vision defects (1 source) Diplopia; Translations: [Diplopia] 02-07-2023 Episodic Chronic kidney disease (20 sources) Chronic kidney disease stage 3; Translations: [CKD (chronic kidney disease) stage 3, GFR 30-59 ml/min] Onset: 9 11-20-2018 Chronic Chronic kidney disease (1 source) Chronic kidney disease; Translations: [Stage 3a chronic kidney disease (HCC)] Onset: 3 Congestive heart failure; nonhypertensive (20 sources) Chronic diastolic heart failure; Translations: [Chronic diastolic (congestive) heart failure] Onset: 3 04-16-2023 Chronic Coronary atherosclerosis and other heart disease (20 sources) Coronary arteriosclerosis; Translations: [Atherosclerotic heart disease of [place] coronary artery without angina pectoris] Onset: 8 02-15-2018 Chronic Diabetes mellitus with complications (1 source) Type 2 diabetes mellitus; Translations: [Type 2 diabetes mellitus with other circulatory complications] Chronic Diabetes mellitus without complication (20 sources) Impaired fasting glycemia; Translations: [Impaired fasting glucose] Onset: 1 Resolved: 3 11-03-2010 Episodic Disorders of lipid metabolism (20 sources) Mixed hyperlipidemia; Translations: [Mixed hyperlipidemia] Onset: 8 07-19-2007 Chronic Esophageal disorders (3 sources) Gastroesophageal reflux disease; Translations: [Gastro-esophageal reflux disease without esophagitis] Onset: 0 Chronic Essential hypertension (20 sources) Essential hypertension; Translations: [Essential (primary) hypertension] Onset: 9 07-07-2015 Chronic Heart valve disorders (1 source) Heart murmur; Translations: [Cardiac murmur, unspecified] Episodic Hepatitis (20 sources) Cirrhosis - non-alcoholic; Translations: [Nonalcoholic steatohepatitis (DURANT)] Onset: 0 02-10-2020 Chronic HIV infection (1 source) Asymptomatic human immunodeficiency virus infection; Translations: [Asymptomatic human immunodeficiency virus [HIV] infection status] 04-27-2023 Chronic Immunity disorders (20 sources) Immunosuppression; Translations: [Immunodeficiency, unspecified] Onset: 3 04-05-2023 Chronic Immunizations and screening for infectious disease (10 sources) Vaccination needed; Translations: [Encounter for immunization] Episodic Inflammatory conditions of male genital organs (20 sources) Chronic prostatitis; Translations: [Chronic prostatitis] Onset: 9 Resolved: 8 07-31-2017 Chronic Nonspecific chest pain (3 sources) Chest pain; Translations: [Chest pain, unspecified] Onset: 5 Episodic Nutritional deficiencies (20 sources) Vitamin D deficiency; Translations: [Vitamin D deficiency, unspecified] Onset: 0 Resolved: 4 02-10-2020 Chronic Osteoporosis (1 source) Senile osteoporosis; Translations: [Age-related osteoporosis without current pathological fracture] 01-23-2023 Chronic Other and unspecified benign neoplasm (4 sources) History of polyp of colon; Translations: [History of colonic polyps] 01-06-2025 Episodic Other circulatory disease (1 source) Presence of other vascular implants and grafts; Translations: [S/P TIPS (transjugular intrahepatic portosystemic shunt)] Onset: 3 Chronic Other gastrointestinal disorders (1 source) H/O: liver disease; Translations: [Personal history of other diseases of the digestive system] 01-22-2025 Episodic Other gastrointestinal disorders (1 source) Personal history of other diseases of the digestive system; Translations: [History of cirrhosis] Onset: 5 Episodic Other liver diseases (13 sources) Cirrhosis of liver; Translations: [Unspecified cirrhosis of liver] Chronic Other liver diseases (2 sources) Disease of liver; Translations: [Liver disease, unspecified] Chronic Other liver diseases (2 sources) Liver disease, unspecified; Translations: [Pleural effusion associated with hepatic disorder] Onset: 3 Chronic Other liver diseases (1 source) Unspecified cirrhosis of liver; Translations: [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)] Onset: 3 Chronic Other liver diseases (1 source) Other cirrhosis of liver; Translations: [Other cirrhosis of liver (HCC)] Onset: 3 Chronic Other liver diseases (1 source) Portal hypertension; Translations: [Portal hypertension with esophageal varices (HCC)] Onset: 0 Chronic Other liver diseases (3 sources) Liver transplant status; Translations: [Liver replaced by transplant (HCC)] Onset: 3 Chronic Other lower respiratory disease (2 sources) Dyspnea on exertion; Translations: [Dyspnea, unspecified] Episodic Other lower respiratory disease (4 sources) Dyspnea; Translations: [Shortness of breath] Episodic Other lower respiratory disease (1 source) Wheezing; Translations: [Wheezing] Episodic Other lower respiratory disease (2 sources) Shortness of breath; Translations: [Shortness of breath] Episodic Other lower respiratory disease (1 source) Other disorders of lung; Translations: [Small airways disease] Onset: 5 Episodic Other lower respiratory disease (1 source) Dyspnea, unspecified; Translations: [Dyspnea, unspecified type] Onset: 5 Episodic Other lower respiratory disease (1 source) Other forms of dyspnea; Translations: [MARR (dyspnea on exertion)] Onset: 5 Episodic Other nutritional; endocrine; and metabolic disorders (20 sources) Obese class I; Translations: [Obesity, unspecified] Onset: 8 02-15-2018 Chronic Other nutritional; endocrine; and metabolic disorders (2 sources) Obesity; Translations: [Obesity, unspecified] Chronic Other screening for suspected conditions (not mental disorders or infectious disease) (2 sources) Radiology result abnormal; Translations: [Abnormal findings on diagnostic imaging of other specified body structures] Chronic Residual codes; unclassified (20 sources) Obstructive sleep apnea syndrome; Translations: [Obstructive sleep apnea (adult) (pediatric)] Onset: 0 12-25-2019 Chronic Residual codes; unclassified (4 sources) Obstructive sleep apnea (adult) (pediatric); Translations: [Obstructive sleep apnea (adult)(pediatric)] Onset: 3 Chronic Residual codes; unclassified (6 sources) Awaiting transplantation of liver; Translations: [Awaiting organ transplant status] Onset: 3 Chronic Residual codes; unclassified (1 source) Edema, generalized; Translations: [Generalized edema] Episodic Residual codes; unclassified (2 sources) Past history of procedure; Translations: [Other specified postprocedural states] 12-22-2022 Episodic Screening and history of mental health and substance abuse codes (3 sources) Tobacco smoking behavior - finding; Translations: [Personal history of nicotine dependence] Onset: 5 04-14-2024 Episodic Substance-related disorders (20 sources) Nicotine dependence; Translations: [Nicotine dependence, unspecified, uncomplicated] Onset: 3 Resolved: 4 04-06-2023 Chronic Unclassified (1 source) Unknown / UNK(Unknown) Onset: 8 Unclassified (3 sources) Colonoscopy [employer] Onset: 5 01-29-2025 Unclassified (1 source) Class 1 obesity; Translations: [Class 1 obesity] Onset: 5 Unclassified (1 source) Obesity, Class I, BMI 30-34.9; Translations: [Obesity, Class I, BMI 30-34.9] Onset: 3 Unclassified (1 source) History of colonic polyps; Translations: [History of colonic polyps] Onset: 5 Past or Other Problems Problem Classification Problem Date Documented Da te Episodic/Chronic Abdominal hernia (20 sources) Umbilical hernia; Translations: [Umbilical hernia without obstruction or gangrene] Onset: 12-25-2019 Resolved: 02-08-2024 12-25-2019 Episodic Acute posthemorrhagic anemia (20 sources) Acute posthemorrhagic anemia; Translations: [Acute posthemorrhagic anemia] Onset: 04-01-2023 Resolved: 05-30-2023 04-01-2023 Episodic Cardiac dysrhythmias (20 sources) Bradycardia; Translations: [Bradycardia, unspecified] Onset: 04-04-2023 Resolved: 02-08-2024 04-04-2023 Episodic Coagulation and hemorrhagic disorders (20 sources) Platelet count below reference range; Translations: [Thrombocytopenia, unspecified] Onset: 10-02-2022 Resolved: 02-08-2024 10-02-2022 Chronic Complications of surgical procedures or medical care (20 sources) Pulmonary insufficiency following surgery; Translations: [Other postprocedural complications and disorders of respiratory system, not elsewhere classified] Onset: 04-01-2023 Resolved: 04-25-2023 04-01-2023 Episodic Coronary atherosclerosis and other heart disease (20 sources) Stented coronary artery; Translations: [Presence of coronary angioplasty implant and graft] Onset: 07-12-2017 07-31-2017 Episodic Fluid and electrolyte disorders (20 sources) Hyperkalemia; Translations: [Hyperkalemia] Onset: 04-04-2023 Resolved: 08-13-2023 04-05-2023 Episodic Genitourinary symptoms and ill-defined conditions (20 sources) Retention of urine; Translations: [Retention of urine, unspecified] Onset: 09-20-2022 Resolved: 09-27-2022 09-27-2022 Episodic Hyperplasia of prostate (20 sources) Benign prostatic hypertrophy with outflow obstruction; Translations: [Benign prostatic hyperplasia with lower urinary tract symptoms] Onset: 08-24-2008 Resolved: 09-15-2022 01-05-2016 Chronic Osteoarthritis (20 sources) Osteoarthritis; Translations: [Unspecified osteoarthritis, unspecified site] Onset: 08-24-2008 Resolved: 01-08-2014 01-08-2014 Chronic Other and unspecified benign neoplasm (20 sources) Tubular adenoma of colon; Translations: [Benign neoplasm of colon, unspecified] Onset: 02-08-2017 Resolved: 04-25-2023 07-31-2017 Episodic Other bone disease and musculoskeletal deformities (20 sources) Osteopenia; Translations: [Other specified disorders of bone density and structure, multiple sites] Onset: 08-08-2024 08-08-2024 Episodic Other bone disease and musculoskeletal deformities (1 source) Other specified disorders of bone density and structure, multiple sites; Translations: [Osteopenia of multiple sites] Onset: 08-08-2024 Episodic Other diseases of bladder and urethra (20 sources) Bladder neck obstruction; Translations: [Bladder-neck obstruction] Onset: 05-26-2009 Resolved: 01-08-2014 01-08-2014 Chronic Other diseases of bladder and urethra (20 sources) Mass of urinary bladder; Translations: [Other specified disorders of bladder] Onset: 02-24-2016 Resolved: 07-07-2016 07-07-2016 Chronic Other diseases of bladder and urethra (20 sources) Urethral stricture; Translations: [Unspecified urethral stricture, male, unspecified site] Onset: 09-20-2022 Resolved: 08-13-2023 09-27-2022 Episodic Other gastrointestinal disorders (20 sources) Diarrhea; Translations: [Diarrhea, unspecified] Onset: 03-29-2022 Resolved: 02-07-2023 03-29-2022 Episodic Other gastrointestinal disorders (20 sources) Ascites; Translations: [Other ascites] Onset: 09-15-2022 Resolved: 05-30-2023 Episodic Other gastrointestinal disorders (1 source) Other ascites; Translations: [Other ascites] Onset: 06-14-2022 Episodic Other gastrointestinal disorders (20 sources) Occult blood in stools; Translations: [Other fecal abnormalities] Onset: 01-19-2017 Resolved: 07-31-2017 07-31-2017 Episodic Other liver diseases (20 sources) Hepatic fibrosis; Translations: [Hepatic fibrosis] Onset: 02-09-2018 Resolved: 02-07-2023 02-09-2018 Chronic Other liver diseases (20 sources) Non-alcoholic fatty liver disease without non-alcoholic steatohepatitis; Translations: [Fatty (change of) liver, not elsewhere classified] Onset: 02-10-2020 Resolved: 02-06-2025 02-10-2020 Chronic Other liver diseases (20 sources) Portal hypertension; Translations: [Portal hypertension] Onset: 02-10-2020 Resolved: 04-25-2023 02-10-2020 Chronic Other liver diseases (20 sources) Pleural effusion associated with hepatic disorder; Translations: [Liver disease, unspecified] Onset: 09-20-2022 Resolved: 05-30-2023 09-27-2022 Chronic Other lower respiratory disease (1 source) Hypoxemia; Translations: [Hypoxia] Onset: 06-14-2022 Episodic Other nervous system disorders (20 sources) Postoperative pain ; Translations: [Other acute postprocedural pain] Onset: 04-01-2023 Resolved: 04-25-2023 04-01-2023 Episodic Other non-epithelial cancer of skin (20 sources) Malignant neoplasm of skin head and neck; Translations: [Basal cell carcinoma of skin of scalp and neck] Onset: 11-10-2023 02-08-2024 Episodic Other screening for suspected conditions (not mental disorders or infectious disease) (20 sources) Abnormal iron profile; Translations: [Abnormal level of blood mineral] Onset: 07-19-2007 Resolved: 02-07-2023 02-09-2018 Episodic Other skin disorders (20 sources) Eruption; Translations: [Rash and other nonspecific skin eruption] Onset: 01-14-2015 Resolved: 04-17-2019 04-17-2019 Episodic Other upper respiratory disease (20 sources) Bronchiolar disease; Translations: [Other diseases of bronchus, not elsewhere classified] Onset: 09-15-2022 Resolved: 05-30-2023 09-20-2022 Episodic Pleurisy; pneumothorax; pulmonary collapse (6 sources) Pleural effusion; Translations: [Pleural effusion, not elsewhere classified] Onset: 06-14-2022 Episodic Residual codes; unclassified (20 sources) Bilateral lower limb edema; Translations: [Localized edema] Onset: 02-08-2024 Episodic Residual codes; unclassified (20 sources) History of thoracic surgery; Translations: [Other artificial opening status] Onset: 09-20-2022 Resolved: 09-27-2022 09-27-2022 Episodic Unclassified (1 source) FATTY LIVER,ELEVATED LIVER ENZYMES~ Onset: 12-27-2017 Unclassified (2 sources) Patient encounter status 01-06-2025 Results Test Name Value Interpretation Reference Range Facility [facility] 03-27-2025 [facility] Telephone (CARDAGHWW ) JESUS SOSA ([id number]) 1950 M Date Time Provider Department 03/27/25 FLORENCE CORNELIUS During your visit today, we recorded the following information about you: Florence Urrutia LPN 03/27/2025 10:15 AM Signed Jesus Sosa called in and states he is still experiencing some shoulder and left arm discomfort. Patient also c/o increased Shortness of Breath with activity. He starts cardiac rehab today and wanted you to be aware. He has a follow up on 04/23/2025 scheduled. SOM Muñoz Jessica, LPN 03/27/2025 2:33 PM Signed Florence Cornelius APRN.EMISSIONS TECHNICIAN You2 hours ago (12:09 PM) Thanks for the update. I do not think his shortness of breath and arm pain are cardiac related. He had a heart catheterization in hospital with no obstructive coronary disease and LVEDP did not show volume overload. Looks like his PCP gave him a referral to pulmonary medicine. Maybe we could consider an evaluation for peripheral stenosis of his arm at his upcoming office visit. Thanks, Florence Cornelius APRN.Florence Kovacs LPN 03/27/2025 2:33 PM Signed I spoke to Jesus Sosa and informed them of Florence's response and recommendations. Patient voiced understanding. Florence Urrutia LPN Allergies As of Date: 03/27/2025 Noted Allergy Reaction [id number] REDUCTASE INHIBIT*07/27/2020 9 - Itching Date Reviewed: 03/23/2025 Reviewed by: Fawn Erickson LPN - Fully Assessed Reason for Visit: Patient Update [1234] Prescriptions as of 03/27/2025 - tacrolimus IR (PROGRAF) 1 mg capsule Take 1 capsule by mouth two times a day. - pantoprazole DR (PROTONIX) 40 mg tablet Take 1 tablet by mouth once daily. - furosemide (LASIX) 20 mg tablet Take 1 tablet by mouth once daily. - NIFEdipine ER (PROCARDIA XL) 30 mg 24 hr tablet Take 1 tablet by mouth once daily. - sulfamethoxazole-trimethopri m (BACTRIM DS) 800-160 mg per tablet Take 1 tablet by mouth every Sunday, Sunday, and Sunday. - REPATHA SURECLICK 140 mg/mL pen injector INJECT 140 MG SUBCUTANEOUSLY EVERY 2 WEEKS. - cholecalciferol, vitamin D3, (VITAMIN D3 ORAL) Take by mouth once daily. - Amoxicillin 500 mg tablet Take 4 tablets by mouth as directed. Take 2g Amoxicillin 1 hr prior to dental procedure. - lactobacillus rhamnosus (CULTURELLE) 10 billion cell capsule Take 1 capsule by mouth once daily. - aspirin 81 mg chewable tablet Chew and swallow 1 tablet by mouth once daily. Problem List As Of Date 03/27/2025 Noted Resolved Mixed hyperlipidemia [E78.2] 07/19/2007 Elevated prostate specific antigen (PSA) [R97.2*07/19/2007 07/31/2017 BPH with obstruction/lower urinary tract sympto*08/24/2008 09/15/2022 Osteoarthrosis, unspecified whether generalized*08/24/2008 01/08/2014 Primary hypertension [I10] 04/02/2009 Chronic prostatitis [N41.1] 05/26/2009 07/31/2017 Bladder neck obstruction [N32.0] 05/26/2009 01/08/2014 Impaired fasting glucose [R73.01] 11/03/2010 09/15/2022 Abnormal LFTs (liver function tests) [R79.89] 06/27/2013 01/06/2021 Rash [R21] 01/14/2015 04/17/2019 Bladder mass [N32.89] 02/24/2016 07/07/2016 Occult GI bleeding [R19.5] 01/19/2017 07/31/2017 Abnormal result of iron profile testing [R79.0] 07/15/2017 01/11/2022 Stented coronary artery [Z95.5] 07/18/2017 Tubular adenoma of colon [D12.6] 02/08/2017 04/25/2023 Hepatic fibrosis (HCC) on elastography [K74.00] 02/09/2018 02/07/2023 Coronary artery disease involving [place]illiams*02/09/2018 Obesity, Class I, BMI 30-34.9 [E66.811] 02/15/2018 CKD (chronic kidney disease) stage 3, GFR 30-59*11/20/2018 VANESSA (obstructive sleep apnea) [G47.33] 12/25/2019 Umbilical hernia [K42.9] 12/25/2019 02/08/2024 Elevated LFTs [R79.89] 02/10/2020 02/07/2023 Nonalcoholic fatty liver disease without nonalc*02/10/2020 02/06/2025 Vitamin D deficiency [E55.9] 02/10/2020 Portal hypertension with esophageal varices (HC*02/10/2020 04/25/2023 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*02/10/2020 BPH associated with nocturia [N40.1, R35.1] 08/08/2021 09/15/2022 Diarrhea [R19.7] 03/29/2022 02/07/2023 Right inguinal hernia [K40.90] 09/04/2022 04/25/2023 H/O prostatectomy [Z90.79] 09/15/2022 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] 09/15/2022 05/30/2023 Other ascites [R18.8] 09/15/2022 05/30/2023 S/P TIPS (transjugular intrahepatic portosystem*09/20/2022 04/25/2023 Pleural effusion associated with hepatic disord*09/20/2022 05/30/2023 Status post chest tube placement (HCC) [Z93.8] 09/20/2022 09/27/2022 Urinary retention [R33.9] 09/20/2022 09/27/2022 Urethral stricture [N35.919] 09/20/2022 08/13/2023 Platelets decreased (HCC) [D69.6] 10/02/2022 02/08/2024 Liver transplant recipient (HCC) [Z94.4] 03/31/2023 Post-operative pain [G89.18] 04/01/2023 04/25/2023 Acute postoperative respiratory insufficiency [*04/01/2023 04/25/2023 (more content not included)... Normal [facility] CR - History AND Physicalon 03-25-2025 CR - History & Physical [facility] Cardiac Rehab [address] [place] [address] CR - History Physical MR#: [id number] Acct: [id number] Name: JESUS SOSA Rep #: [id number] : 1950 75 From: Alberto Bagley BS, RVT PCP: Dr. Willem Madsen MD DOS: 03/25/25 CR - History Physical General Arrival date:: 03/25/25 Arrival time:: 08:15 Date of Referral:: 03/11/25 Date of CR Evaluation:: 03/25/25 Referring Physician: Dr. Brian Davis Primary Diagnosis: Angina History of Present Cardiac Event Onset Date Current stable Angina Pectoris:: Yes (onset 03/11/25) Medications Ambulatory Orders ???Medication ???Instructions ???Recorded aspirin 81 mg tablet,delayed 81 mg PO DAILY heart health release Lactobacillus rhamnosus GG 10 1 cap PO DAILY 04/24/23 billion cell capsule (Culturelle) acetaminophen 500 mg tablet 500 mg PO 04/24/23 (Tylenol Extra Strength) mycophenolate mofetil 250 mg 500 mg PO BID Liver transplant capsule (CellCept) nifedipine 30 mg tablet,extended 30 mg PO DAILY 04/24/23 release 24 hr (Procardia XL) pantoprazole 40 mg tablet,delayed 40 mg PO DAILY Liver transplant 1 06/24/22 release (Protonix) sulfamethoxazole 800 1 tab PO .MWF Liver Transplant mg-trimethoprim 160 mg tablet (Bactrim DS) amoxicillin 500 mg capsule 1,000 mg PO BID 04/29/24 cholecalciferol (vitamin D3) 50 50 mcg PO QDAY 04/29/24 mcg (2,000 unit) capsule evolocumab 140 mg/mL subcutaneous mg subcut High cholesterol pen injector (Repatha SureClick) furosemide 20 mg tablet (Lasix) 20 mg PO DAILY Edema in lower legs 04/29/24 tacrolimus 1 mg capsule, 1 mg PO BID Liver Transplant 04/29 immediate-release (Prograf) Allergies Allergies Sscimoq-BOR-HpD Reductase Inhibitor (Gxvilji-Skq-Lme Reductase Inhibitor) Adverse Reaction (Severe, Verified 04/29/24 10:28) myalgias Sleep Disorder Evaluation Hx of Sleep Apnea: Yes Do you snore loudly (louder than talking or can be heard through closed doors)?: No Do you often feel tired/ fatigued/ sleepy during daytime?: No Has anyone observed you stop breathing during sleep?: No History of Hypertension (for STOP score): Yes STOP Results: Negative Advanced Directives Advanced Directives Do you have a Healthcare Power of Form Press Operator?: Yes Living Will: Yes Advance Directives Information Provided: Yes Advance Directives on File: No DNR Order?:: No Past Medical History Covid-19 Screening Physicial Symptoms Other Clinical Concerns Exposure Risk Pertinent Comorbidities 65 years or older:: Yes Has a serious heart condition:: Yes Has liver disease:: Yes Past Medical Illness Medical History (Reviewed 04/29/24 @ 10:41 by Zulema Olson FLEXOGRAPHIC PRESS HELPER, FLEXOGRAPHIC PRESS HELPER-C) VANESSA on CPAP Pure hypercholesterolemia Presence of stent in coronary artery ( 07/18/17) Essential hypertension SOB (shortness of breath) Atherosclerotic heart disease of [place] coronary artery without angina pectoris Hyperglycemia BPH (benign prostatic hyperplasia) CKD (chronic kidney disease), stage III Past Surgical History Surgical History Liver transplant recipient History of umbilical hernia repair History of prostatectomy Presence of coronary angioplasty implant and graft ( 07/18/17) S/P coronary artery stent placement Family History Summary Family History Mother Heart disease Cancer Skin cancer Father Cancer Skin cancer Brother Cancer Prostate cancer Social History Smoking History Years Smokin Hx Tobacco Use: Yes (1 cigar every 2 weeks.) Alcohol Use Alcohol Usage: No Occupation Occupation (List type of work in comments):: Retired Social Environment Status Marital Status: Current Living Arrangements Living Environment:: Spouse Safety Do you feel safe in your surroundings?: Yes Assistance Do you need any assistance at home?: no Review of Systems Review of Systems Hints Review of Present Symptoms: Reports Shortness of Breath with Exertion, Angina, Appetite - Normal, Appetite - Special Diet and Sleep - Normal; Denies Shortness of Breath at Rest, PVD, Operative Discomfort, Wound Healing, Dizziness/Lightheadedness, Fatigue, Heart Arrhythmia/Irregularities or Sexual Changes Pain Is Patient Pain Free?: Yes Risk Factor Assessment Chief Complaint Chief Complaint: Angina Vital Signs Pulse Ox: 97 Blood Pressure: 132/64 Pulse Pulse Rate: 58 Hypertension How long have you been treated?: 7 yrs Blood Pressure Sitting - Right Arm: 132/64 Obesity Height: 5 ft 8 in Weight:: 218 lb Weight in Pounds: 218.0 lbs Body Mass Index (BMI): 33.1 Nutritional Referral for Obesity: No Physical Inactivity Physical I (more content not included)... Normal [facility] 03-16-2025 [facility] Telephone (AK[facility]) JESUS SOSA ([id number]) 1950 M Date Time Provider Department 03/16/[address] [facility] During your visit today, we recorded the following information about you: Marisa Escoto 03/16/2025 10:13 AM Signed Spoke with patient regarding Cardiac Rehab referral. Patient prefers [facility]. Sent via FAX. Allergies As of Date: 03/16/2025 Noted Allergy Reaction QQRILXG-YKT-ICS REDUCTASE INHIBIT*07/27/2020 9 - Itching Date Reviewed: 03/11/2025 Reviewed by: Stacy Daley RN - Fully Assessed Reason for Visit: Cardiac Rehab [0447] Cmt: Pt prefers [facility] Prescriptions as of 03/16/2025 - pantoprazole DR (PROTONIX) 40 mg tablet Take 1 tablet by mouth once daily. - furosemide (LASIX) 20 mg tablet Take 1 tablet by mouth once daily. - NIFEdipine ER (PROCARDIA XL) 30 mg 24 hr tablet Take 1 tablet by mouth once daily. - sulfamethoxazole-trimethopri m (BACTRIM DS) 800-160 mg per tablet Take 1 tablet by mouth every Sunday, Sunday, and Sunday. - REPATHA SURECLICK 140 mg/mL pen injector INJECT 140 MG SUBCUTANEOUSLY EVERY 2 WEEKS. - tacrolimus IR (PROGRAF) 1 mg capsule Take 2 capsules by mouth daily at 6 am AND 1 capsule daily at 6 pm. - cholecalciferol, vitamin D3, (VITAMIN D3 ORAL) Take by mouth once daily. - Amoxicillin 500 mg tablet Take 4 tablets by mouth as directed. Take 2g Amoxicillin 1 hr prior to dental procedure. - lactobacillus rhamnosus (CULTURELLE) 10 billion cell capsule Take 1 capsule by mouth once daily. - aspirin 81 mg chewable tablet Chew and swallow 1 tablet by mouth once daily. Facility-Administered Medications as of 03/16/2025 - perflutren lipid microspheres 1.3 mL in NaCl (PF) 0.9% 10 mL injection (DEFINITY) - sodium chloride 0.9 % (flush) 10 mL (BD POSIFLUSH) Problem List As Of Date 03/16/2025 Noted Resolved Mixed hyperlipidemia [E78.2] 07/19/2007 Elevated prostate specific antigen (PSA) [R97.2*07/19/2007 07/31/2017 BPH with obstruction/lower urinary tract sympto*08/24/2008 09/15/2022 Osteoarthrosis, unspecified whether generalized*08/24/2008 01/08/2014 Primary hypertension [I10] 04/02/2009 Chronic prostatitis [N41.1] 05/26/2009 07/31/2017 Bladder neck obstruction [N32.0] 05/26/2009 01/08/2014 Impaired fasting glucose [R73.01] 11/03/2010 09/15/2022 Abnormal LFTs (liver function tests) [R79.89] 06/27/2013 01/06/2021 Rash [R21] 01/14/2015 04/17/2019 Bladder mass [N32.89] 02/24/2016 07/07/2016 Occult GI bleeding [R19.5] 01/19/2017 07/31/2017 Abnormal result of iron profile testing [R79.0] 07/15/2017 01/11/2022 Stented coronary artery [Z95.5] 07/18/2017 Tubular adenoma of colon [D12.6] 02/08/2017 04/25/2023 Hepatic fibrosis (HCC) on elastography [K74.00] 02/09/2018 02/07/2023 Coronary artery disease involving [place] mcwilliams*02/09/2018 Obesity, Class I, BMI 30-34.9 [E66.811] 02/15/2018 CKD (chronic kidney disease) stage 3, GFR 30-59*11/20/2018 VANESSA (obstructive sleep apnea) [G47.33] 12/25/2019 Umbilical hernia [K42.9] 12/25/2019 02/08/2024 Elevated LFTs [R79.89] 02/10/2020 02/07/2023 Nonalcoholic fatty liver disease without nonalc*02/10/2020 02/06/2025 Vitamin D deficiency [E55.9] 02/10/2020 Portal hypertension with esophageal varices (HC*02/10/2020 04/25/2023 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*02/10/2020 BPH associated with nocturia [N40.1, R35.1] 08/08/2021 09/15/2022 Diarrhea [R19.7] 03/29/2022 02/07/2023 Right inguinal hernia [K40.90] 09/04/2022 04/25/2023 H/O prostatectomy [Z90.79] 09/15/2022 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] 09/15/2022 05/30/2023 Other ascites [R18.8] 09/15/2022 05/30/2023 S/P TIPS (transjugular intrahepatic portosystem*09/20/2022 04/25/2023 Pleural effusion associated with hepatic disord*09/20/2022 05/30/2023 Status post chest tube placement (HCC) [Z93.8] 09/20/2022 09/27/2022 Urinary retention [R33.9] 09/20/2022 09/27/2022 Urethral stricture [N35.919] 09/20/2022 08/13/2023 Platelets decreased (HCC) [D69.6] 10/02/2022 02/08/2024 Liver transplant recipient (HCC) [Z94.4] 03/31/2023 Post-operative pain [G89.18] 04/01/2023 04/25/2023 Acute postoperative respiratory insufficiency [*04/01/2023 04/25/2023 Acute blood loss anemia [D62] 04/01/2023 05/30/2023 Immunosuppression (HCC) [D84.9] 04/03/2023 Hyperkalemia [E87.5] 04/04/2023 08/13/2023 Bradycardia [R00.1] 04/04/2023 02/08/2024 Nicotine use disorder, F17.2 [F17.200] 04/06/2023 02/08/2024 Chronic diastolic congestive heart failure (HCC*04/16/2023 Unilateral inguinal hernia [K40.90] 05/30/2023 02/08/2024 Unspecified severe protein-calorie malnutrition*09/06/2023 02/08/2024 Basal cell carcinoma of multiple sites of head *11/2023 Edema of both legs [R60.0] 02/08/2024 Osteopenia of multiple sites [M85.89] 08/08/2024 Right heart failure (HCC) [I50.810] 01/05/2025 Pain [R52] 03/11/2025 Coronary artery disease of [place] artery of vince*03/12/2025 (more content not included)... Normal [facility] CBC panel Auto (Bld)on 03-13 Erythrocyte distribution width (RBC) [Ratio] 12.9 % Normal 11.5-15.0 [facility] Comment on above: Order Comment: Speci men Type: BLOOD SPECIMEN Ordering Facility: [facility] Address: [address] [place] [address] Performed By: #### 1 4979-9, 65253-3 #### [facility] CLIA [id number] [address] Hematocrit (Bld) [Volume fraction] 46.2 % Normal 39.0-51.0 [facility] Comment on above: Order Comment: Speci men Type: BLOOD SPECIMEN Ordering Facility: [facility] Address: [address] [place] [address] Performed By: #### 1 4979-9, 07964-6 #### [facility] CLIA [id number] [address] STATES OF [facility] Hemoglobin (Bld) [Mass/Vol] 15.3 g/dL Normal 13.0-17.0 [facility] Comment on above: Order Comment: Speci men Type: BLOOD SPECIMEN Ordering Facility: [facility] Address: [address] [place] [address] Performed By: #### 1 4979-9, 08721-6 #### [facility] CLIA [id number] [address] [place] MCH (RBC) [Entitic mass] 30.5 pg Normal 26.0-34.0 [facility] Comment on above: Order Comment: Speci men Type: BLOOD SPECIMEN Ordering Facility: [facility] Address: [address] [place] [address] Performed By: #### 1 4979-9, 47776-7 #### [facility] CLIA [id number] [address] MCHC (RBC) [Mass/Vol] 33.1 g/dL Normal 30.5-36.0 [facility] Comment on above: Order Comment: Speci men Type: BLOOD SPECIMEN Ordering Facility: [facility] Address: [address] [place] [address] Performed By: #### 1 49799, 09826-3 #### [facility] CLIA [id number] [address] [place] [address] MCV (RBC) [Entitic vol] 92.2 fL Normal 80.0-100.0 [facility] Comment on above: Order Comment: Speci men Type: BLOOD SPECIMEN Ordering Facility: [facility] Address: [address] [place] [address] Performed By: #### 1 4979-9, 86881-6 #### [facility] CLIA [id number] [address] Nucleated RBC (Bld) [#/Vol] 10*3/uL Normal <0.01 [facility] Comment on above: Order Comment: Speci men Type: BLOOD SPECIMEN Ordering Facility: [facility] Address: [address] [place] [address] Performed By: #### 1 4979-9, 15165-7 #### [facility] CLIA [id number] [address] Platelet mean volume (Bld) [Entitic vol] 10.6 fL Normal 9.0-12.7 [facility] Comment on above: Order Comment: Speci men Type: BLOOD SPECIMEN Ordering Facility: [facility] Address: [address] [place] [address] Performed By: #### 1 4979-9, 99569-4 #### [facility] CLIA [id number] [address] [place] Platelets (Bld) [#/Vol] 223 10*3/uL Normal 150-400 [facility] Comment on above: Order Comment: Speci men Type: BLOOD SPECIMEN Ordering Facility: [facility] Address: [address] [place] [address] Performed By: #### 1 4979-9, 80904-7 #### [facility] CLIA [id number] [address] OF [facility] RBC (Bld) [#/Vol] 5.01 10*6/uL Normal 4.20-6.00 [facility] Comment on above: Order Comment: Speci men Type: BLOOD SPECIMEN Ordering Facility: [facility] Address: [address] [place] [address] Performed By: #### 1 4979-9, 03092-0 #### [facility] CLIA [id number] [address] WBC (Bld) [#/Vol] 9.56 10*3/uL Normal 3.70-11.00 [facility] Comment on above: Order Comment: Speci men Type: BLOOD SPECIMEN Ordering Facility: [facility] Address: [address] [place] [address] Performed By: #### 1 4979-9, 27830-5 #### [facility] CLIA [id number] [address] OF [place] CNDSon 03-13-2025 CNDS HNO ID: [id number] Author: BRIAN LAUREN DO Service: Hospital Medicine Author Type: Physician Type: Discharge Summary Filed: 03/13/2025 18:21 Note Text: DISCHARGE SUMMARY PATIENT NAME: Jesus Sosa Code Status: Prior DEPARTMENT OF HOSPITAL MEDICINE 03/13/2025 Additional Provider to Provider Information: refer below Primary Discharge Diagnosis: ACS r/o DISCHARGE DIAGNOSES AND SUMMARY: refer below to discharge summary Hospital Course: 75 yo M w/ PMH of CAD HFpEF, nonalcoholic steatohepatitis (DURANT), liver transplant March 2023, hypertension, dyslipidemia. presented w/ chest pain. Underwent LHC which did not reveal any significant disease. Doing well post procedure. Presenting symptoms improved significantly with medical management. The patient is stable at the time of discharge. The patient achieved maximum benefit of hospitalization. Patient and family has no concerns with discharge today. Nursing staff has no concerns with discharge today. Patient had the opportunity to ask questions and questions answered to their satisfaction. DISCHARGE MEDICATIONS: Medication List CHANGE how you take these medications tacrolimus IR 1 mg capsule Commonly known as: PROGRAF Take 2 capsules by mouth daily at 6 am AND 1 capsule daily at 6 pm. What changed: See the new instructions. CONTINUE taking these medications Amoxicillin 500 mg tablet Take 4 tablets by mouth as directed. Take 2g Amoxicillin 1 hr prior to dental procedure. aspirin 81 mg chewable tablet Chew and swallow 1 tablet by mouth once daily. CULTURELLE 10 billion cell capsule Generic drug: lactobacillus rhamnosus furosemide 20 mg tablet Commonly known as: LASIX Take 1 tablet by mouth once daily. NIFEdipine ER 30 mg 24 hr tablet Commonly known as: PROCARDIA XL Take 1 tablet by mouth once daily. pantoprazole DR 40 mg tablet Commonly known as: PROTONIX Take 1 tablet by mouth once daily. REPATHA SURECLICK 140 mg/mL pen injector Generic drug: evolocumab INJECT 140 MG SUBCUTANEOUSLY EVERY 2 WEEKS. sulfamethoxazole-trimethopri m 800-160 mg per tablet Commonly known as: BACTRIM DS Take 1 tablet by mouth every Sunday, Sunday, and Sunday. VITAMIN D3 PO STOP taking these medications peg 3350-Electrolytes 236-22.74-6.74 -5.86 gram suspension Commonly known as: MAYA Highest Readmission Risk Score: 13 The 30 day readmissions risk score is derived from an internally validated risk model which evaluates patient level characteristics, utilization history, medication orders and lab results up until the day of discharge. Patients with a score of 39 or above are considered highest risk for readmission. Specific patient level drivers will be listed at the bottom of the summary. Admission Information Admission Information ADMIT DATE: 03/11/2025 DISCHARGE DATE: 03/12/25 MY DOCTORS AND MEDICAL TEAM: My Main Hospital Doctor: Brian Lauren DO Primary Care Provider: Willem Madsen MD My Medical Team Members: Treatment Team: Attending Provider: Brian Lauren DO Consulting: Demetrius Goldberg MD Primary Service: MARY BETH MARSHALL MY CONDITION AT DISCHARGE: Stable REASON I WAS IN THE HOSPITAL: Chest pain SUMMARY OF WHAT HAPPENED WHILE I WAS IN THE HOSPITAL: I had a heart cath which was normal. OTHER PROBLEMS/DIAGNOSIS: Principal Problem: Coronary artery disease of [place] artery of [place] heart with stable angina pectoris Active Problems: Pain Nicotine use disorder, F17.2 Resolved Problems: * No resolved hospital problems. * OPERATIONS PERFORMED WHILE IN THE HOSPITAL: None IMPORTANT TEST/PROCEDURES: Heart Catheterization: No intervention TEST RESULTS NOT AVAILABLE AT THIS TIME: No pending results Discharge Disposition Discharge Disposition: Home With Self Care Diet Instructions Resume your pre-hospital diet Wound/Surgical Site Care Any bruising and bumps should disappear within 3-4 days Avoid lotions or powders Check your wound every day If the bruising expands or the bump enlarges please call your doctor Some bruising, soreness or a small bump under the skin at the inserion site is normal Transitions of Care Critical Issues: Refer to above discharge summary LABS AND PROCEDURES PENDING AT DISCHARGE: None pending Pertinent Medication Changes this admission: None FOLLOW-UP APPOINTMENTS ALREADY SCHEDULED WITH A [facility] PROVIDER: Future Appointments Date Time Provider Department Center 03/23/2025 12:00 PM Abisai Mcclelland APRN.EMISSIONS TECHNICIAN TXCTMN Main A Bldg 04/09/2025 1:05 PM BONE DENSITY [facility] WSTR BONEJESUS [facility] 04/23/2025 2:30 PM Florence Cornelius APRN.EMISSIONS TECHNICIAN AGCARDPOB [facility] 07/14/2025 8:50 AM ECHOCARDIOGRAM WSTR CARDJESUS [facility] 08/07/2025 10:00 AM Willem Madsen MD INTMWS [facility] 09/14/2025 9:40 AM Demetrius Goldberg MD [facility] ALLERGIES Allergen Reactions Osdumdj-Nut-Ybu Red* I (more content not included)... Normal [facility] James 03-13-2025 [place] Telephone (KARLEE) JAIDENSHASHIJESUS BARON ([id number]) 1950 M Date Time Provider Department 03/13/25 FLORENCE CORNELIUS During your visit today, we recorded the following information about you: Florence Cornelius APRN.CNP 03/13/2025 9:24 AM Signed Please arrange hospital follow up with myself in 4-6 weeks. Thank you, Florence Cornelius APRN.CNP Uzma Wen 03/13/2025 2:28 PM Signed Such a kind patient! Scheduled him for his hospital follow up on 04/23/2025 at 2:30pm. Thank you, Uzma Tamara Behzad Allergies As of Date: 03/13/2025 Noted Allergy Reaction WFBOPGQ-DJA-ZBU REDUCTASE INHIBIT*07/27/2020 9 - Itching Date Reviewed: 03/11/2025 Reviewed by: Stacy Daley, RN - Fully Assessed Reason for Visit: Appointment [186] Prescriptions as of 03/13/2025 - pantoprazole DR (PROTONIX) 40 mg tablet Take 1 tablet by mouth once daily. - furosemide (LASIX) 20 mg tablet Take 1 tablet by mouth once daily. - NIFEdipine ER (PROCARDIA XL) 30 mg 24 hr tablet Take 1 tablet by mouth once daily. - sulfamethoxazole-trimethopri m (BACTRIM DS) 800-160 mg per tablet Take 1 tablet by mouth every Sunday, Sunday, and Sunday. - REPATHA SURECLICK 140 mg/mL pen injector INJECT 140 MG SUBCUTANEOUSLY EVERY 2 WEEKS. - tacrolimus IR (PROGRAF) 1 mg capsule Take 2 capsules by mouth daily at 6 am AND 1 capsule daily at 6 pm. - cholecalciferol, vitamin D3, (VITAMIN D3 ORAL) Take by mouth once daily. - Amoxicillin 500 mg tablet Take 4 tablets by mouth as directed. Take 2g Amoxicillin 1 hr prior to dental procedure. - lactobacillus rhamnosus (CULTURELLE) 10 billion cell capsule Take 1 capsule by mouth once daily. - aspirin 81 mg chewable tablet Chew and swallow 1 tablet by mouth once daily. Facility-Administered Medications as of 03/13/2025 - nitroglycerin sublingual 0.4 mg tab(s) (NITROQUICK) - atropine 0.4 mg injection - perflutren lipid microspheres 1.3 mL in NaCl (PF) 0.9% 10 mL injection (DEFINITY) - sodium chloride 0.9 % (flush) 10 mL (BD POSIFLUSH) - lactobacillus rhamnosus 10 billion cell (CULTURELLE) capsule - sulfamethoxazole-trimethopri m 800-160 mg 1 tablet (BACTRIM DS) - furosemide 20 mg tab(s) (LASIX) - NIFEdipine ER 30 mg tab(s) (PROCARDIA XL) - pantoprazole DR 40 mg tab(s) (PROTONIX) - tacrolimus IR 2 mg cap(s) (PROGRAF) - tacrolimus IR 1 mg cap(s) (PROGRAF) - aspirin, enteric coated 81 mg tab(s) - nicotine 21 mg/24 hr 1 patch (NICODERM) - nicotine -- REMOVE patch - nicotine - verify patch - NaCl 0.9% iv flush bag - sodium chloride 0.9 % (flush) 2-10 mL (BD POSIFLUSH) Problem List As Of Date 03/13/2025 Noted Resolved Mixed hyperlipidemia [E78.2] 07/19/2007 Elevated prostate specific antigen (PSA) [R97.2*07/19/2007 07/31/2017 BPH with obstruction/lower urinary tract sympto*08/24/2008 09/15/2022 Osteoarthrosis, unspecified whether generalized*08/24/2008 01/08/2014 Primary hypertension [I10] 04/02/2009 Chronic prostatitis [N41.1] 05/26/2009 07/31/2017 Bladder neck obstruction [N32.0] 05/26/2009 01/08/2014 Impaired fasting glucose [R73.01] 11/03/2010 09/15/2022 Abnormal LFTs (liver function tests) [R79.89] 06/27/2013 01/06/2021 Rash [R21] 01/14/2015 04/17/2019 Bladder mass [N32.89] 02/24/2016 07/07/2016 Occult GI bleeding [R19.5] 01/19/2017 07/31/2017 Abnormal result of iron profile testing [R79.0] 07/15/2017 01/11/2022 Stented coronary artery [Z95.5] 07/18/2017 Tubular adenoma of colon [D12.6] 02/08/2017 04/25/2023 Hepatic fibrosis (HCC) on elastography [K74.00] 02/09/2018 02/07/2023 Coronary artery disease involving [place] mcwilliams*02/09/2018 Obesity, Class I, BMI 30-34.9 [E66.811] 02/15/2018 CKD (chronic kidney disease) stage 3, GFR 30-59*11/20/2018 VANESSA (obstructive sleep apnea) [G47.33] 12/25/2019 Umbilical hernia [K42.9] 12/25/2019 02/08/2024 Elevated LFTs [R79.89] 02/10/2020 02/07/2023 Nonalcoholic fatty liver disease without nonalc*02/10/2020 02/06/2025 Vitamin D deficiency [E55.9] 02/10/2020 Portal hypertension with esophageal varices (HC*02/10/2020 04/25/2023 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*02/10/2020 BPH associated with nocturia [N40.1, R35.1] 08/08/2021 09/15/2022 Diarrhea [R19.7] 03/29/2022 02/07/2023 Right inguinal hernia [K40.90] 09/04/2022 04/25/2023 H/O prostatectomy [Z90.79] 09/15/2022 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] 09/15/2022 05/30/2023 Other ascites [R18.8] 09/15/2022 05/30/2023 S/P TIPS (transjugular intrahepatic portosystem*09/20/2022 04/25/2023 Pleural effusion associated with hepatic disord*09/20/2022 05/30/2023 Status post chest tube placement (HCC) [Z93.8] 09/20/2022 09/27/2022 Urinary retention [R33.9] 09/20/2022 09/27/2022 Urethral stricture [N35.919] 09/20/2022 08/13/2023 Platelets decreased (HCC) [D69.6] 10/02/2022 02/08/2024 Liver transplant recipient (HCC) [Z94.4] 03/31/2023 Post-operative pain [G89.18] 04/01/202304/25 (more content not included)... Normal [facility] CONSULT PROGotristian 03-13-2025 CONSULT PROG HNO ID: [id number] Author: FLORENCE CORNELIUS APRN.JOYCELYN Service: Cardiovascular Disease Author Type: Nurse Practitioner Type: Consult Progress Note Filed: 03/13/2025 09:24 Note Text: PROGRESS NOTE INTERVENTIONAL CARDIOLOGY SERVICE SERVICE DATE: 03/13/2025 SERVICE TIME: 8:31 AM HPI/INTERIM HISTORY: Mr. Jesus Sosa is a pleasant 75 year old male who presented with chest pain. 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 He underwent a left heart catheterization yesterday revealing nonobstructive coronary disease. Okay for discharge today from a cardiology standpoint. ROS: Patient seen resting in bed eating breakfast. He feels well this morning without cardiac complaints including chest pain or shortness of breath. Right groin is slightly sore postprocedure. We reviewed plan of care. He is hoping for discharge today. MEDICATIONS: Current Facility-Administered Medications Medication Dose Route Frequency lactobacillus rhamnosus 10 billion cell (CULTURELLE) capsule 1 capsule ORAL DAILY sulfamethoxazole-trimethopri m 800-160 mg 1 tablet (BACTRIM DS) 1 tablet ORAL -- furosemide 20 mg tab(s) (LASIX) 20 mg ORAL DAILY NIFEdipine ER 30 mg tab(s) (PROCARDIA XL) 30 mg ORAL DAILY pantoprazole DR 40 mg tab(s) (PROTONIX) 40 mg ORAL DAILY tacrolimus IR 2 mg cap(s) (PROGRAF) 2 mg ORAL DAILY (6 AM) And tacrolimus IR 1 mg cap(s) (PROGRAF) 1 mg ORAL DAILY AT 6 PM aspirin, enteric coated 81 mg tab(s) 81 mg ORAL DAILY nicotine 21 mg/24 hr 1 patch (NICODERM) 1 patch TRANSDERMAL DAILY And nicotine -- REMOVE patch OTHER DAILY And nicotine - verify patch OTHER q 8 H NaCl 0.9% iv flush bag 20 mL INTRAVENOUS PRN sodium chloride 0.9 % (flush) 2-10 mL (BD POSIFLUSH) 2-10 mL INTRAVENOUS DIRECTED PRN nitroglycerin sublingual 0.4 mg tab(s) (NITROQUICK) 0.4 mg SUBLINGUAL q 5 MIN PRN atropine 0.4 mg injection 0.4 mg INTRAVENOUS PRN(NO DISPENSE) PHYSICAL EXAM: Vital Signs 03/12/25 1918 03/12/25 2325 03/13/25 0205 03/13/25 0813 BP: 139/70 166/93 140/75 Pulse: 66 64 63 62 Resp: 17 16 18 18 Temp: 36.4 ?C (97.5 ?F) 36.7 ?C (98 ?F) 36.2 ?C (97.2 ?F) 36.4 ?C (97.5 ?F) TempSrc: Oral Oral Oral Oral SpO2: 96% 94% 92% Weight: Height: Temp (24hrs), Av ?C (98.6 ?F), Min:36.8 ?C (98.2 ?F), Max:37.1 ?C (98.8 ?F) Intake/Output: No intake or output data in the 24 hours ending 03/13/25 0831 Oxygen therapy: RA Gen: AANDO x 3 Cardiac: RRR without murmur, gallop, or rubs. Resp: clear to auscultation bilaterally Abd: Soft, non-tender. Bowel sounds normal. No masses, organomegaly, hernias. Ext: no edema, moves all extremities with no apparent weakness Pulses: +2 radial, +2 dorsalis pedis Tele: normal sinus rhythm Right groin cath site without hematoma or bleeding Labs: No results found for this basename: CK:3,MB:3,MBP:3,CKMBP:3,TROP T:3 Recent Labs 03/13/25 0334 03/12/25 0514 03/11/25 2310 03/11/25 1702 WBC 9.56 7.08 -- 6.44 HB 15.3 14.4 -- 15.0 HCT 46.2 42.9 -- 44.2 PLT 223 219 -- 221 INR -- -- -- 1.0 APTT -- 53.7* 53.2* 29.2 Recent Labs 03/10/25 0834 NA 140 K 4.6 CHLOR 104 CO2 23 BUN 22 CREAT 1.51* GLUC 139* ALKPHOS 80 ALT 11 AST 13* Cholesterol, Total 168 01/16/2019 HDL Cholesterol 30 01/16/2019 LDL Calculated 112 01/16/2019 DATA: Left heart catheterization 03/12/2025 FINDINGS: Hemodynamics: LVEDP: 14 mmHg LV - AORTA: No gradient. Coronary Angiography: Left Main: Large-caliber vessel no significant disease Left Anterior Descending: Moderate to large caliber vessel. There is a patent stent from the proximal to mid LAD. There appeared to be moderate in-stent restenosis of the proximal portion of the stent. This was examined with ultrasound evaluation. There was no significant stenosis in the stent. The distal vessel has mild diffuse disease. The stent into the diagonal branch is widely patent Circumflex: Large-caliber nondominant vessel. The proximal vessel has an eccentric hazy 50 to 60% stenosis. Confirmed on intravascular ultrasound examination. The vessel extends into a moderate caliber bifurcating obtuse marginal system which has mild diffuse disease. Right Coronary Artery: Moderate caliber dominant vessel. The mid vessel has diffuse 40% luminal narrowing. The distal vessel is small in caliber with mild diffuse disease Collaterals: None Complications: None Echocardiogram 03/12/2025 CONCLUSIONS: - Exam indication: Frequent PVCs - The left ventricle is normal in size. Left ventricular systolic function is normal. EF = 59 ? 5% (2D biplane) Definity contrast used for endocardial border detection. Grade I left ventricular diastolic dysfunction. - The right ventricle is normal in si (more content not included)... Normal [facility] BRIEF OP NOTon 03-12-2025 BRIEF OP NOT HNO ID: [id number] Author: DEMETRIUS GOLDBERG MD Service: Interventional Cardiology Author Type: Physician Type: Brief Op Note Filed: 03/12/2025 09:51 Note Text: CARDIAC CATHETERIZATION REPORT PATIENT NAME: Jesus Sosa SERVICE DATE: 03/12/2025 SERVICE TIME: 9:46 AM Sampling Theory Teacher: Demetrius Goldberg MD Attending: Brian Lauren DO RECOMMENDATIONS: Continue medical therapy and risk factor modification Pre-Procedure Diagnosis: 75-year-old gentleman with known coronary artery disease presents to the hospital with chest pain and pressure. He is referred for coronary angiography due to symptoms concerning for unstable angina Post- Procedure Diagnosis: Patent LAD and diagonal branch stents evaluated by with intravascular ultrasound. No significant stenosis noted. Proximal left circumflex 50% stenosis also evaluated with intravascular ultrasound. Mild to moderate diffuse disease dominant right coronary artery. Normal LVEDP Procedure: Left Heart Catheterization Access: Right Femoral Artery Under Local anesthesia the Right Femoral Artery was entered by Modified Seldinger's technique using a micro puncture needle. A 6F sheath was introduced into the Right Femoral Artery . Selective injections were made in the left and right coronary arteries in various right and left anterior oblique views. An LV pressure was performed in 30 degree MCMAHON. Patient was administered 10,000 units of heparin. An EBU 3.5 guiding catheter was seen into the left main coronary artery. A wire was passed into the distal LAD and diagonal branch. Intravascular ultrasound images were obtained. Wire was redirected into the left circumflex and the ultrasound images were obtained in the left circumflex. The sheath was removed and hemostatsis was established using Angioseal closure device. There was no bleeding at the end of the procedure. The pt was returned to the recovery room in a stable condition. FINDINGS: Hemodynamics: LVEDP: 14 mmHg LV - AORTA: No gradient. Coronary Angiography: Left Main: Large-caliber vessel no significant disease Left Anterior Descending: Moderate to large caliber vessel. There is a patent stent from the proximal to mid LAD. There appeared to be moderate in-stent restenosis of the proximal portion of the stent. This was examined with ultrasound evaluation. There was no significant stenosis in the stent. The distal vessel has mild diffuse disease. The stent into the diagonal branch is widely patent Circumflex: Large-caliber nondominant vessel. The proximal vessel has an eccentric hazy 50 to 60% stenosis. Confirmed on intravascular ultrasound examination. The vessel extends into a moderate caliber bifurcating obtuse marginal system which has mild diffuse disease. Right Coronary Artery: Moderate caliber dominant vessel. The mid vessel has diffuse 40% luminal narrowing. The distal vessel is small in caliber with mild diffuse disease Collaterals: None Complications: None SIGNATURE: Demetrius Goldberg MD DATE: March 12, 2025 TIME: 9:46 AM Normal [facility] CARD CATH DIAGNOSTICon 03-12 CARD CATH DIAGNOSTIC Site Id: [facility] Lab #: DEFAULT Study Date: 03/12/2025 Start Time: End Time: Name Duty Demetrius Goldberg MD PROC MD 1 Alem Pate PROC SCRUB 1 Jayashree Mart RN PROC CIRC 1 Claudiaaditi Danna RN PROC RECORD 1 + + PATIENT INFORMATION + + Name: MR. JESUS SOSA [facility] : 1950 Age: 75 years Gender: M Height: 68 in / 173 cm Weight: 218.00 lb / 98.88 kg BMI: 33.04 kg/m BSA: 2.12 m + -+ CLINICAL HISTORY/INDICATIONS + -+ Dyspnea. Appropriate Use Criteria (Diag): Unstable angina with high risk score; AUC score = 9. Procedural Status: Urgent CAD Presentation: Unstable Angina Angina Classification (within 2 weeks): CCS IV No Heart Failure Clinical History: 75-year-old gentleman with known coronary artery disease presents to the hospital with chest pain and pressure. He is referred for coronary angiography due to symptoms concerning for unstable angina + + DIAGNOSTIC FINDINGS + + Coronary Anatomy: Right Dominant Injection Site(s): Coronary Artery LMT: _ The LMT has mild luminal irregularities. Additional Comment: Large-caliber vessel no significant disease. LAD: _ The LAD has mild diffuse disease. Additional Comment: Moderate to large caliber vessel. There is a patent stent from the proximal to mid LAD. There appeared to be moderate in-stent restenosis of the proximal portion of the stent. This was examined with ultrasound evaluation. There was no significant stenosis in the stent. The distal vessel has mild diffuse disease. The stent into the diagonal branch is widely patent. LCX: _ The proximal circumflex is narrowed 50 % - moderate diffuse disease. Additional Comment: Large-caliber nondominant vessel. The proximal vessel has an eccentric hazy 50 to 60% stenosis. Confirmed on intravascular ultrasound examination. The vessel extends into a moderate caliber bifurcating obtuse marginal system which has mild diffuse disease. RAMUS: _ Ramus Status: Not Applicable. RCA: _ The mid RCA is narrowed 40 % - mild diffuse disease. Additional Comment: Moderate caliber dominant vessel. The mid vessel has diffuse 40% luminal narrowing. The distal vessel is small in caliber with mild diffuse disease. + + IMPRESSION/PLAN + + Impression: Patent LAD and diagonal branch stents evaluated by with intravascular ultrasound. No significant stenosis noted. Proximal left circumflex 50% stenosis also evaluated with intravascular ultrasound. Mild to moderate diffuse disease dominant right coronary artery. Normal LVEDP Recommended Treatment: Medical Therapy. Plan: Patent LAD and diagonal branch stents evaluated by with intravascular ultrasound. No significant stenosis noted. Proximal left circumflex 50% stenosis also evaluated with intravascular ultrasound. Mild to moderate diffuse disease dominant right coronary artery. Normal LVEDP + + HEMODYNAMICS - XPER + + + +------+--- --+-------+------+------+--- ---+ Measurement Name Sys Sherry End Sherry Mean A Wave V Wave + +------+--- --+-------+------+------+--- ---+ LV 150.00 0.00 14.00 + +------+--- --+-------+------+------+--- ---+ LVp 171.00 -1.00 11.00 + +------+--- --+-------+------+------+--- ---+ AOp 148.00 62.00 102.00 + +------+--- --+-------+------+------+--- ---+ AO 150.00 69.00 101.00 + +------+--- --+-------+------+------+--- ---+ AO 151.00 78.00 107.00 + +------+--- --+-------+------+------+--- ---+ AO 144.00 74.00 98.00 + +------+--- --+-------+------+------+--- ---+ AO 139.00 77.00 104.00 + +------+--- --+-------+------+------+--- ---+ Oximetry: + +------ -+ +--+---+----- + Time Site O2 Saturation O2 PO2 HB + +------ -+ +--+---+----- + 03/12/2025 8:53:37 AM SYS ART 14.40 + +------ -+ +--+---+----- + 03/12/2025 8:53:37 AM SYS MARCELO 14.40 + +------ -+ +--+---+----- + 03/12/2025 8:53:37 AM PUL ART 14.40 + +------ -+ +--+---+----- + 03/12/2025 8:53:37 AM PUL MARCELO 14.40 + +------ -+ +--+---+----- + + -------+ ADVERSE OUTCOME(s)/COMPLICATION(s) + -------+ None + ---+ PROCEDURAL & TECHNICAL DETAILS + ---+ Date Time Description 03/12/2025 12:00:00 AM Left Heart Cath 03/12/2025 12:00:00 AM IVUS *MEDICAL HISTORY* CAD Presentation: Unstable Angina Angina Classificatio (more content not included)... Normal [facility] CBC panel Auto (Bld)on 03-12 Erythrocyte distribution width (RBC) [Ratio] 13.0 % Normal 11.5-15.0 [facility] Comment on above: Order Comment: Speci men Type: BLOOD SPECIMEN Ordering Facility: [facility] Address: [address] [place] [address] Performed By: #### 5 8410-2 #### [facility] CLIA [id number] [address] [facility] Hematocrit (Bld) [Volume fraction] 42.9 % Normal 39.0-51.0 [facility] Comment on above: Order Comment: Speci men Type: BLOOD SPECIMEN Ordering Facility: [facility] Address: [address] [place] [address] Performed By: #### 5 8410-2 #### [facility] CLIA [id number] [address] [place] OF [facility] Hemoglobin (Bld) [Mass/Vol] 14.4 g/dL Normal 13.0-17.0 [facility] Comment on above: Order Comment: Speci men Type: BLOOD SPECIMEN Ordering Facility: [facility] Address: [address] [place] [address] Performed By: #### 5 8410-2 #### [facility] CLIA [id number] [address] [place] [facility] MCH (RBC) [Entitic mass] 30.6 pg Normal 26.0-34.0 [facility] Comment on above: Order Comment: Speci men Type: BLOOD SPECIMEN Ordering Facility: [facility] Address: [address] [place] [address] Performed By: #### 5 8410-2 #### [facility] CLIA [id number] [address] [place] MCHC (RBC) [Mass/Vol] 33.6 g/dL Normal 30.5-36.0 [facility] Comment on above: Order Comment: Speci men Type: BLOOD SPECIMEN Ordering Facility: [facility] Address: [address] [place] [address] Performed By: #### 5 8410-2 #### [facility] CLIA [id number] [address] MCV (RBC) [Entitic vol] 91.3 fL Normal 80.0-100.0 [facility] Comment on above: Order Comment: Speci men Type: BLOOD SPECIMEN Ordering Facility: [facility] Address: [address] [place] [address] Performed By: #### 5 8410-2 #### [facility] CLIA [id number] [address] Nucleated RBC (Bld) [#/Vol] 10*3/uL Normal <0.01 [facility] Comment on above: Order Comment: Speci men Type: BLOOD SPECIMEN Ordering Facility: [facility] Address: [address] [place] [address] Performed By: #### 5 8410-2 #### [facility] CLIA [id number] [address] Platelet mean volume (Bld) [Entitic vol] 10.7 fL Normal 9.0-12.7 [facility] Comment on above: Order Comment: Speci men Type: BLOOD SPECIMEN Ordering Facility: [facility] Address: [address] [place] [address] Performed By: #### 5 8410-2 #### [facility] CLIA [id number] [address] Platelets (Bld) [#/Vol] 219 10*3/uL Normal 150-400 [facility] Comment on above: Order Comment: Speci men Type: BLOOD SPECIMEN Ordering Facility: [facility] Address: [address] [place] [address] Performed By: #### 5 8410-2 #### [facility] CLIA [id number] [address] [place] RBC (Bld) [#/Vol] 4.70 10*6/uL Normal 4.20-6.00 [facility] Comment on above: Order Comment: Speci men Type: BLOOD SPECIMEN Ordering Facility: [facility] Address: [address] [place] [id number] Performed By: #### 5 8410-2 #### [facility] CLIA [id number] [address] [place] [address] [place] WBC (Bld) [#/Vol] 7.08 10*3/uL Normal 3.70-11.00 [facility] Comment on above: Order Comment: Speci men Type: BLOOD SPECIMEN Ordering Facility: [facility] Address: [address] [place] [address] Performed By: #### 5 8410-2 #### [facility] CLIA [id number] [address] OF [facility] CONSULT PROGon 03-12-2025 CONSULT PROG HNO ID: [id number] Author: FLORENCE CORNELIUS APRN.EMISSIONS TECHNICIAN Service: Cardiovascular Disease Author Type: Nurse Practitioner Type: Consult Progress Note Filed: 03/12/2025 08:50 Note Text: CONSULT NOTE INTERVENTIONAL CARDIOLOGY SERVICE SERVICE DATE: 03/12/2025 SERVICE TIME: 7:47 AM HPI/INTERIM HISTORY: Mr. Jesus Sosa is a pleasant 75 year old male who presented with chest pain. 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 ROS: Patient seen resting in bed. He shares with me he completes intentional aerobic exercise 3 times a week. He walks on a treadmill for about 30 minutes. For the past month, he has noticed left arm pain about 15 minutes into exercise which dissipates with rest. On Sunday night, he experienced left arm pain which radiated into his chest creating chest pain at rest which prompted him to come to ER for further evaluation. He has noticed some increase in dyspnea on exertion with stairs at [employer]. He has a tendency for fluid overload due to liver function. He does not feel abdominal distention, shortness of breath or leg swelling today. MEDICATIONS: Current Facility-Administered Medications Medication Dose Route Frequency lactobacillus rhamnosus 10 billion cell (CULTURELLE) capsule 1 capsule ORAL DAILY sulfamethoxazole-trimethopri m 800-160 mg 1 tablet (BACTRIM DS) 1 tablet ORAL furosemide 20 mg tab(s) (LASIX) 20 mg ORAL DAILY NIFEdipine ER 30 mg tab(s) (PROCARDIA XL) 30 mg ORAL DAILY pantoprazole DR 40 mg tab(s) (PROTONIX) 40 mg ORAL DAILY tacrolimus IR 2 mg cap(s) (PROGRAF) 2 mg ORAL DAILY (6 AM) And tacrolimus IR 1 mg cap(s) (PROGRAF) 1 mg ORAL DAILY AT 6 PM aspirin, enteric coated 81 mg tab(s) 81 mg ORAL DAILY nitroglycerin sublingual 0.4 mg tab(s) (NITROQUICK) 0.4 mg SUBLINGUAL q 5 MIN PRN nicotine 21 mg/24 hr 1 patch (NICODERM) 1 patch TRANSDERMAL DAILY And nicotine -- REMOVE patch OTHER DAILY And nicotine - verify patch OTHER q 8 H NaCl 0.9% iv flush bag 20 mL INTRAVENOUS PRN sodium chloride 0.9 % (flush) 2-10 mL (BD POSIFLUSH) 2-10 mL INTRAVENOUS DIRECTED PRN And perflutren lipid microspheres 1.1 mg/mL 1.3 mL injection (DEFINITY) 1.3 mL INTRAVENOUS DIRECTED PRN heparin iv infusion 25,000 units in NaCl 0.45% 250 mL LOW DOSE/ACS NOMOGRAM 0-3,000 Units/hr INTRAVENOUS CONTINUOUS And heparin RATE CHANGE bolus 1,000-4,000 Units for subtherapeutic PTTAC results 1,000-4,000 Units INTRAVENOUS PRN influenza vaccine ts 180 mcg (Patients 65 years and older) (PF) 0.5 mL injection (FLUZONE HIGH DOSE ) 0.5 mL INTRAMUSCULAR ONCE (IMMUNIZATION) PHYSICAL EXAM: Vital Signs 03/11/25 1935 03/11/25 2328 03/12/25 0245 03/12/25 0734 BP: 102/65 135/75 130/78 142/80 Pulse: 66 (!) 53 (!) 56 (!) 59 Resp: 16 17 17 18 Temp: (!) 35.9 ?C (96.6 ?F) 36.7 ?C (98.1 ?F) 36.7 ?C (98.1 ?F) (!) 35.8 ?C (96.5 ?F) TempSrc: Oral Oral Oral Oral SpO2: 95% 96% 96% 95% Weight: Height: Temp (24hrs), Av ?C (98.6 ?F), Min:36.8 ?C (98.2 ?F), Max:37.1 ?C (98.8 ?F) Intake/Output: Intake/Output Summary (Last 24 hours) at 03/12/2025 0787 Last data filed at 03/12/2025 0639 Gross per 24 hour Intake 921 ml Output 200 ml Net 721 ml Oxygen therapy: RA Gen: AANDO x 3 Cardiac: RRR without murmur, gallop, or rubs. Resp: clear to auscultation bilaterally Abd: Soft, non-tender. Bowel sounds normal. No masses, organomegaly, hernias. Ext: no edema, moves all extremities with no apparent weakness Pulses: +2 radial, +2 dorsalis pedis Tele: normal sinus rhythm with PACs Labs: No results found for this basename: CK:3,MB:3,MBP:3,CKMBP:3,TROP T:3 Recent Labs 03/12/25 0514 03/11/25 2310 03/11/25 1702 03/10/25 0834 WBC 7.08 -- 6.44 7.80 HB 14.4 -- 15.0 14.9 HCT 42.9 -- 44.2 44.0 PLT 219 -- 221 235 INR -- -- 1.0 -- APTT 53.7* 53.2* 29.2 -- Recent Labs 03/10/25 0834 NA 140 K 4.6 CHLOR 104 CO2 23 BUN 22 CREAT 1.51* GLUC 139* ALKPHOS 80 ALT 11 AST 13* Cholesterol, Total 168 01/16/2019 HDL Cholesterol 30 01/16/2019 LDL Calculated 112 01/16/2019 DATA: Echo 04/06/2023 CONCLUSIONS: - Technically difficult exam due to suboptimal positioning and bandages/chest tubes/wound. - Exam indication: s/p Liver txp - The left ventricle is normal in size. Left ventricular systolic function is normal. EF = 61 ? 5% (2D biplane) Left ventricular diastolic function was not evaluated due to an arrhythmia. There is [id number] variability due to frequent PACs. - The right ventricle is normal in size. Right ventricular systolic function is normal. - Estimated right ventricular systolic pressure is likely underestimated due to a weak or incomplete tricuspid regurgitation signal and is, a (more content not included)... Normal [facility] ECHOon 03-12-2025 Echocardiography Echocardiography Rep ort: Transthoracic Echo [facility] Date of service: 03/12/2025 11:12:50 AM [facility] Ordering physician: ESSENCE RANKIN Exam indication: Frequent PVCs Technologist: Penelope Holly [facility] Interpreting physician: Yrn Tamez MD PATIENT: Name: MR. JESUS SOSA : 1950 Age: 75 years Gender: M History of chronic kidney disease, hypertension, coronary artery disease and dyslipidemia. Previous cardiovascular interventions: PCI (07/18/2017) Primary rhythm: sinus. Secondary rhythm: PVC. Height: 172.70 cm BSA: 2.18 m Weight: 99.34 kg BMI: 33.3 kg/m Heart rate 62 bpm Blood pressure 141/68 mmHg Color Doppler was utilized to interrogate the cardiac valves assessed and spectral Doppler was utilized to determine the flow velocities and pressure gradients reported in this exam. MEASUREMENTS: Value Indexed Normal Max aortic dimension 3.1 cm Ao < 3.8 Left atrial volume 47 ml (biplane A-L) 22 ml/m Ksenia <= 34 LV ID (diastole) 4.4 cm (2D) 2.00 cm/m LV ID (systole) 3.2 cm (2D) 1.47 cm/m IVS, leaflet tips 1.0 cm (2D) Posterior wall thickness 1.3 cm (2D) Left ventricular mass 178 g (2D) 81 g/m LV stroke volume 57 ml (2D biplane) LV end diastolic volume 96 ml (2D biplane) 43.8 ml/m 34<=EDVi<75 LV end systolic volume 39 ml (2D biplane) 17.8 ml/m Ejection Fraction 59 % (2D biplane) EF > 52 FINDINGS: LEFT VENTRICLE The left ventricle is normal in size. Left ventricular systolic function is normal globally. Grade I left ventricular diastolic dysfunction. Mitral annular lateral E/e': 6.1. Mitral annular septal E/e': 7.7. Definity contrast used for endocardial border detection. Wall Motion: All scored segments are normal. RIGHT VENTRICLE The right ventricle is normal in size. Right ventricular systolic function is normal. RV systolic tissue Doppler velocity is 10.1 cm/s. Tricuspid annular displacement is 1.7 cm. Estimated right ventricular systolic pressure is not reported due to an insufficient tricuspid regurgitation signal. Estimated right atrial pressure is 8 mmHg based on IVC assessment. LEFT ATRIUM The left atrial cavity is normal in size. Pulmonary Veins: The pulmonary venous pattern showed normal systolic flow. RIGHT ATRIUM The right atrial cavity is normal in size. Inferior Vena Cava: The inferior vena cava appears normal measuring 1.1 cm. The vessel decreases less than 50 percent with inspiration. MITRAL VALVE The mitral valve leaflets are structurally normal. There is trace mitral valve regurgitation. The pressure half time is 85 msec. The peak mitral E/A ratio is 0.67. The average mitral E/e' ratio is 6.9. The mitral flow deceleration time is 294 msec. TRICUSPID VALVE The tricuspid valve leaflets are structurally normal. There is trace tricuspid valve regurgitation. AORTIC VALVE There is trace aortic valve regurgitation. There is mild thickening. PULMONIC VALVE The pulmonic valve was not seen or not interrogated. There is no pulmonic valve regurgitation. AORTA The visualized aorta is normal in size. Measurements - Sinus: 3.1 cm. Mid ascending aorta 2.9 cm. PULMONARY ARTERIES The pulmonary arteries are unseen or not interrogated. INTERATRIAL SEPTUM There is no evidence of intracardiac shunting as detected by Doppler. PERICARDIUM There is no pericardial effusion. There is an epicardial fat pad. CONCLUSIONS: - Exam indication: Frequent PVCs - The left ventricle is normal in size. Left ventricular systolic function is normal. EF = 59 5% (2D biplane) Definity contrast used for endocardial border detection. Grade I left ventricular diastolic dysfunction. - The right ventricle is normal in size. Right ventricular systolic function is normal. - Exam was compared with the prior echocardiographic exam performed on 04/06/2023. No major changes. * * * Final * * * [employer] : [id number] yngoDynamicsSISUID Normal [facility] aPTT PPPon 03-12-2025 aPTT Coag (PPP) [Time] 53.7 s High 23.0-32.4 [facility] Comment on above: Order Comment: Speci men Type: BLOOD SPECIMEN Ordering Facility: [facility] Address: [address] [place] [address] Performed By: #### 1 4979-9 #### [facility] CLIA [id number] [address] [place] CBC panel Auto (Bld)on 03-11 Erythrocyte distribution width (RBC) [Ratio] 13.0 % Normal 11.5-15.0 [facility] Comment on above: Order Comment: Speci men Type: BLOOD SPECIMEN Ordering Facility: [facility] Address: [address] [place] [address] Performed By: #### 5 8410-2 #### [facility] CLIA [id number] [address] [place] [address] [place] Hematocrit (Bld) [Volume fraction] 44.2 % Normal 39.0-51.0 [facility] Comment on above: Order Comment: Speci men Type: BLOOD SPECIMEN Ordering Facility: [facility] Address: [address] [place] [address] Performed By: #### 5 8410-2 #### [facility] CLIA [id number] [address] [place] Hemoglobin (Bld) [Mass/Vol] 15.0 g/dL Normal 13.0-17.0 [facility] Comment on above: Order Comment: Speci men Type: BLOOD SPECIMEN Ordering Facility: [facility] Address: [address] [place] [address] Performed By: #### 5 8410-2 #### [facility] CLIA [id number] [address] [place] MCH (RBC) [Entitic mass] 31.1 pg Normal 26.0-34.0 [facility] Comment on above: Order Comment: Speci men Type: BLOOD SPECIMEN Ordering Facility: [facility] Address: [address] [place] [address] Performed By: #### 5 8410-2 #### [facility] CLIA [id number] [address] MCHC (RBC) [Mass/Vol] 33.9 g/dL Normal 30.5-36.0 [facility] Comment on above: Order Comment: Speci men Type: BLOOD SPECIMEN Ordering Facility: [facility] Address: [address] [place] [address] Performed By: #### 5 8410-2 #### [facility] CLIA [id number] [address] MCV (RBC) [Entitic vol] 91.7 fL Normal 80.0-100.0 [facility] Comment on above: Order Comment: Speci men Type: BLOOD SPECIMEN Ordering Facility: [facility] Address: [address] [place] [address] Performed By: #### 5 8410-2 #### [facility] CLIA [id number] [address] Nucleated RBC (Bld) [#/Vol] 10*3/uL Normal <0.01 [facility] Comment on above: Order Comment: Speci men Type: BLOOD SPECIMEN Ordering Facility: [facility] Address: [address] [place] [address] Performed By: #### 5 8410-2 #### [facility] CLIA [id number] [address] Platelet mean volume (Bld) [Entitic vol] 10.7 fL Normal 9.0-12.7 [facility] Comment on above: Order Comment: Speci men Type: BLOOD SPECIMEN Ordering Facility: [facility] Address: [address] [place] [address] Performed By: #### 5 8410-2 #### [facility] CLIA [id number] [address] Platelets (Bld) [#/Vol] 221 10*3/uL Normal 150-400 [facility] Comment on above: Order Comment: Speci men Type: BLOOD SPECIMEN Ordering Facility: [facility] Address: [address] [place] [address] Performed By: #### 5 8410-2 #### [facility] CLIA [id number] [address] [facility] RBC (Bld) [#/Vol] 4.82 10*6/uL Normal 4.20-6.00 [facility] Comment on above: Order Comment: Speci men Type: BLOOD SPECIMEN Ordering Facility: [facility] Address: [address] [place] [address] Performed By: #### 5 8410-2 #### [facility] CLIA [id number] [address] WBC (Bld) [#/Vol] 6.44 10*3/uL Normal 3.70-11.00 [facility] Comment on above: Order Comment: Speci men Type: BLOOD SPECIMEN Ordering Facility: [facility] Address: [address] [place] [address] Performed By: #### 5 8410-2 #### [facility] CLIA [id number] [address] ECG COMPLETEon 03-11-2025 ECG COMPLETE Ventricular Rate : 6 1 BPM Atrial Rate : 61 BPM P-R Interval : 190 ms QRS Duration : 130 ms Q-T Interval : 452 ms QTC Calculation(Bazett) : 455 ms Calculated P Sarita : 27 degrees Calculated R Sarita : -49 degrees Calculated T Sarita : -3 degrees NORMAL SINUS RHYTHM WITH SINUS ARRHYTHMIA LEFT AXIS DEVIATION LEFT VENTRICULAR HYPERTROPHY WITH QRS WIDENING ( R in aVL , Jose Manuel product ) ABNORMAL ECG Confirmed by BALJEET POOLE MD ([id number]) on 03/13/2025 12:20:45 PM NAME : JESUS SOSA PID : [id number] : 1950 Gender : Male Race : ORD : [id number] Procedure Date : Mar 11 2025 11:31:42 Edit Date : Mar 13 2025 12:20:48 Diagnosis: NORMAL SINUS RHYTHM WITH SINUS ARRHYTHMIA LEFT AXIS DEVIATION LEFT VENTRICULAR HYPERTROPHY WITH QRS WIDENING ( R in aVL , Amity product ) ABNORMAL ECG Confirmed by BALJEET POOLE MD ([id number]) on 03/13/2025 12:20:45 PM Test Reason : Chest Pain Location : 4 : [facility] Overread By : BALJEET POOLE MD Edited By : BALJEET POOLE MD Referred By : , Acquired by : MEGAN NAVA [facility] ED NOTEon 03-11-2025 ED NOTE HNO ID: [id number] Author: THOM NEWMAN RN Service: ? Author Type: Registered Nurse Type: ED Notes Filed: 03/11/2025 16:01 Note Text: Call to floor to verify room readiness and notify of electronic report. [facility] ED NOTE HNO ID: [id number] Author: CLAUDIA WHALEN RN Service: Emergency Medicine Author Type: Registered Nurse Type: ED Notes Filed: 03/11/2025 10:47 Note Text: Rad room notified patient ready for xray. [facility] ED NOTE HNO ID: [id number] Author: CLAUDIA WHALEN RN Service: Emergency Medicine Author Type: Registered Nurse Type: ED Notes Filed: 03/11/2025 10:26 Note Text: Patient placed on compliance monitor. Monitor shows sinus rhythm [facility] ED NOTE HNO ID: [id number] Author: CARMELO LORENZANA RN Service: ? Author Type: Registered Nurse Type: ED Notes Filed: 03/11/2025 09:57 Note Text: Pt not in room, waiting on housekeeping [facility] ED NOTE HNO ID: [id number] Author: ROGER MCKENNA RN Service: ? Author Type: Registered Nurse Type: ED Notes Filed: 03/11/2025 09:56 Note Text: Bed: 17-ED Expected date: 03/11/25 Expected time: 9:36 AM Means of arrival: Comments: Triage Normal [facility] ED PROV NOTEon 03-11-2025 ED PROV NOTE HNO ID: [id number] Author: BLANCA BRIGHT DO Service: Emergency Medicine Author Type: Physician Type: ED Provider Notes Filed: 03/11/2025 10:49 Note Text: The patient was seen and evaluated with the resident physician. I performed a separate HANDP. Please see the resident's note for further details. I agree with the resident's assessment and plan. I personally saw the patient and performed a substantive portion of the visit including all aspects of the medical decision making. HPI: Patient presents to the ED with a chief complaint of chest pain that lasted for couple of minutes today. Over the last 3 weeks he has been having left forearm pain not associated with shortness of breath or chest pain. He denies lightheadedness or shortness of breath with associated chest pain. No radiating pain. It is located over the left anterior chest. He is currently pain-free. PE: His lungs are clear. Heart regular rate rhythm. Skin is dry intact. No lower extremity pain. Abdomen is soft but protuberant. Skin is dry and intact. BLANCA BRIGHT 03/11/25 1049 Normal [facility] ED PROV NOTE HNO ID: [id number] Author: BLANCA BRIGHT DO Service: Emergency Medicine Author Type: Physician Type: ED Provider Notes Filed: 03/11/2025 14:06 Note Text: ED Provider Note Patient Name: Jesus Sosa : 1950 SERVICE DATE: 03/11/25 History Patient presents with: Numbness: Pt ambulatory to triage c/o intermittent numbness and pain to left arm x 2 weeks and chest discomfort. Hx heart stents and liver transplant. Pt denies Shortness of Breath. HPI This is a 75-year-old male with a past medical history of CAD (MICHELLE to LAD 2018), HFpEF (EF 61% ) 3A CKD, hypertension, VANESSA, hyperlipidemia, DURANT, liver transplant recipient, immunosuppression presenting today with a chief complaint of numbness to his left arm with accompanying chest discomfort. Patient states that he has been having some left forearm numbness and aching feeling when on the treadmill for the past 3 weeks. He states that when he is on the treadmill walking he holds the handlebar of the treadmill. He states that the sensation straight and fades once he is done walking on the treadmill. He states he has had no chest pain or shortness of breath nausea or diaphoresis with this. Patient states that this morning around 8 AM he was sitting soon after waking up and noticed some chest discomfort that lasted for about 10 minutes. Patient describes the chest discomfort as an aching feeling. He states that he is no longer experiencing the pain. He denies any nausea diaphoresis or shortness of breath with this chest discomfort episode. He does have a history of GERD however says that this does not feel like an acid reflux exacerbation. Denies any lightheadedness or headache. He denies any trauma to his chest. He is compliant with his medications. He is on aspirin therapy. He is scheduled for an echo in July. Patient states that he did not take his Lasix this morning however he usually does, patient states that he feels like his legs may be more swollen than usual today. Patient denies any shortness of breath when lying flat. PAST MEDICAL HISTORY Diagnosis Date Abnormal LFTs (liver function tests) 06/27/2013 F/U [facility] Arthritis Ascites Asthma (HCC) Basal cell carcinoma of multiple sites of head and neck 11/2023 Dr. Perez Martinez, dermatology Bladder neck obstruction 05/26/2009 BPH with obstruction/lower urinary tract symptoms BPH with obstruction/lower urinary tract symptoms 08/24/2008 Chronic diastolic congestive heart failure (HCC) 04/16/2023 Chronic prostatitis 05/26/2009 CKD (chronic kidney disease) CKD (chronic kidney disease) stage 3, GFR 30-59 ml/min (HCC) 11/20/2018 Coronary artery disease Elevated prostate specific antigen (PSA) 07/19/2007 Esophageal reflux 1999 admitted for chest pain Esophageal varices (HCC) Essential hypertension 04/02/2009 Former cigar smoker Hepatic fibrosis (HCC) on elastography 02/09/2018 Dr. Kelby Suarez. 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 Osteopenia of multiple sites 08/08/2024 Platelets decreased 10/02/2022 Pleural effusion associated with hepatic disorder PMH - PAST MEDICAL HISTORY OF 1998 shingles without rash Portal vein thrombosis RBBB (right bundle branch block) 03/30/2009 Right inguinal hernia 10/03/2022 Skin cancer nose, face, ears Snoring Splenomegaly Stented coronary artery 07/18/2017 MICHELLE to diagonal and mid LAD. Tubular adenoma of colon 02/08/2017 Umbilical hernia 01/08/2014 Unilateral inguinal hernia 05/30/2023 Unspecified essential hypertension 04/02/2009 Unspecified severe protein-calorie malnutrition (HCC) 09/06/2023 Urethral stricture 09/20/2022 PAST SURGICAL HISTORY Procedure Laterality Date CC CORONARY STENT 07/18/2017 MICHELLE x 2 to mild LAD and diagonal COLONOSCOPY FLX DX W/COLLJ SPEC WHEN PFRMD 02/08/2017 Colonoscopy COLONOSCOPY FLX DX W/COLLJ SPEC WHEN PFRMD 01/07/2020 Colonoscopy CYSTOSCOPY 10/12/2020 EGD 02/01/2021 EGD 01/05/2022 ESOPHAGOGASTRODUODENOSCOPY TRANSORAL DIAGNOSTIC 01/07/2020 EGD INSERT HEPATIC SHUNT (TIPS) 09/20/2022 Transjugular Intrahepatic Portosystemic Shunt LEFT HEART CATH,PERCUTANEOUS 01/08/2023 MOHS HEAD/NECK STAGE 1 <=5 01/10/2024 left cheek PARACENTESIS PAST SURGICAL HISTORY OF 03/31/2023 Orthoptic Liver Transplant [facility] PROSTATE NEEDLE BIOPSY 05/19/2009 PROSTATE NEEDLE BIOPSY 01/02/2013 PROSTATECTOMY SUPRAPUBIC SUBTOTAL 1/2 ST (more content not included)... Normal [facility] EKGon 03-11-2025 Electrocardiogram Ventricular Rate : 5 8 BPM Atrial Rate : 58 BPM P-R Interval : 208 ms QRS Duration : 128 ms Q-T Interval : 444 ms QTC Calculation(Bazett) : 435 ms Calculated P Sarita : 35 degrees Calculated R Sarita : -47 degrees Calculated T Sarita : 15 degrees SINUS BRADYCARDIA WITH PREMATURE ATRIAL COMPLEXES LEFT AXIS DEVIATION LEFT VENTRICULAR HYPERTROPHY WITH QRS WIDENING ( R in aVL , Jose Manuel product ) ABNORMAL ECG NO PREVIOUS ECGS AVAILABLE Confirmed by BLANCA BRIGHT DO ([id number]) on 03/11/2025 10:39:52 AM NAME : JESUS SOSA PID : [id number] : 1950 Gender : Male Race : ORD : Procedure Date : Mar 11 2025 09:36:11 Edit Date : Mar 11 2025 10:40:10 Diagnosis: SINUS BRADYCARDIA WITH PREMATURE ATRIAL COMPLEXES LEFT AXIS DEVIATION LEFT VENTRICULAR HYPERTROPHY WITH QRS WIDENING ( R in aVL , Jose Manuel product ) ABNORMAL ECG NO PREVIOUS ECGS AVAILABLE Confirmed by BLANCA BRIGHT DO ([id number]) on 03/11/2025 10:39:52 AM Test Reason : Location : 4 : [facility] Overread By : BLANCA BRIGHT DO Edited By : BLANCA BRIGHT DO Referred By : , Acquired by : RUSTY CASTILLO [facility] HIGH SENSITIVITY TROPONIN To n 03-11-2025 Troponin T.cardiac High sensitivity method [Mass/Vol] 14 ng/L High <12 [facility] Comment on above: Order Comment: Speci men Type: BLOOD SPECIMEN Ordering Facility: [facility] Address: [address] [place] [address] Performed By: #### H STNT #### [facility] CLIA [id number] [address] Troponin T.cardiac High sensitivity method [Mass/Vol] 13 ng/L High <12 [facility] Comment on above: Order Comment: Nellyi men Type: BLOOD SPECIMEN Ordering Facility: [facility] Address: [address] [place] [address] Performed By: #### 1 4979-9, 68700-7 #### [facility] CLIA [id number] [address] [place] HIGH SENSITIVITY TROPONIN T (INITIAL)on 03-11-2025 Troponin T.cardiac High sensitivity method [Mass/Vol] 14 ng/L High <12 [facility] Comment on above: Order Comment: Nellyi men Type: BLOOD SPECIMEN Ordering Facility: [facility] Address: [address] [place] [address] Performed By: #### 1 4979-9, 67876-3 #### [facility] CLIA [id number] [address] HIGH SENSITIVITY TROPONIN T (SECOND)on 03-11-2025 Troponin T.cardiac High sensitivity method [Mass/Vol] 13 ng/L High <12 [facility] Comment on above: Order Comment: Speci men Type: BLOOD SPECIMEN Ordering Facility: [facility] Address: [address] [place] [address] Performed By: #### L [id number] #### [facility] CLIA [id number] [address] HIGH SENSITIVITY TROPONIN T (THIRD) 3 HRS AFTER INITIALon 03-11-2025 Troponin T.cardiac High sensitivity method [Mass/Vol] 13 ng/L High <12 [facility] Comment on above: Order Comment: Speci men Type: BLOOD SPECIMENOrdering Facility: [facility] Address: [address] [place] [address] Performed By: #### L [id number] ####[facility] [id number] [address] HISTORY PHYSICALon HISTORY PHYSICAL HNO ID: [id number] Author: ESSENCE RANKIN MD Service: Hospital Medicine Author Type: Physician Type: H&P Filed: 03/11/2025 16:08 Note Text: DEPARTMENT OF HOSPITAL MEDICINE HISTORY AND PHYSICAL EXAM SERVICE DATE: 03/11/2025 SERVICE TIME: 4:02 PM Primary Care Physician: Willem Madsen MD NIGHT AND WEEKEND COVERAGE: From 7am - 7pm, please call Sound After 7pm, please call cross cover pager #[phone] Subjective CHIEF COMPLAINT: CP HPI: This is a 75 year old male who comes from home with hx of CAD, CKD. Patient was being admitted for chest pain. The chest pain started with a left-sided aching pain going down his arm when he is on the treadmill. It also has been happening at rest. Nothing really seems to make it better it just goes away on its own. Patient with known CAD and had 2 stents many years ago so needs to come in for further workup of this. Troponins are mildly elevated, and EKG was nonspecific. No other cardiac symptoms at this time. Currently chest pain-free PAST MEDICAL HISTORY Diagnosis Date Abnormal LFTs (liver function tests) 06/27/2013 F/U [facility] Arthritis Ascites Asthma (HCC) Basal cell carcinoma of multiple sites of head and neck 11/2023 Dr. Perez Martinez, dermatology Bladder neck obstruction 05/26/2009 BPH with obstruction/lower urinary tract symptoms BPH with obstruction/lower urinary tract symptoms 08/24/2008 Chronic diastolic congestive heart failure (HCC) 04/16/2023 Chronic prostatitis 05/26/2009 CKD (chronic kidney disease) CKD (chronic kidney disease) stage 3, GFR 30-59 ml/min (HCC) 11/20/2018 Coronary artery disease Elevated prostate specific antigen (PSA) 07/19/2007 Esophageal reflux 1999 admitted for chest pain Esophageal varices (HCC) Essential hypertension 04/02/2009 Former cigar smoker Hepatic fibrosis (HCC) on elastography 02/09/2018 Dr. Kelby Suarez. 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 Osteopenia of multiple sites 08/08/2024 Platelets decreased 10/02/2022 Pleural effusion associated with hepatic disorder PMH - PAST MEDICAL HISTORY OF 1998 shingles without rash Portal vein thrombosis RBBB (right bundle branch block) 03/30/2009 Right inguinal hernia 10/03/2022 Skin cancer nose, face, ears Snoring Splenomegaly Stented coronary artery 07/18/2017 MICHELLE to diagonal and mid LAD. Tubular adenoma of colon 02/08/2017 Umbilical hernia 01/08/2014 Unilateral inguinal hernia 05/30/2023 Unspecified essential hypertension 04/02/2009 Unspecified severe protein-calorie malnutrition (HCC) 09/06/2023 Urethral stricture 09/20/2022 PAST SURGICAL HISTORY Procedure Laterality Date CC CORONARY STENT 07/18/2017 MICHELLE x 2 to mild LAD and diagonal COLONOSCOPY FLX DX W/COLLJ SPEC WHEN PFRMD 02/08/2017 Colonoscopy COLONOSCOPY FLX DX W/COLLJ SPEC WHEN PFRMD 01/07/2020 Colonoscopy CYSTOSCOPY 10/12/2020 EGD 02/01/2021 EGD 01/05/2022 ESOPHAGOGASTRODUODENOSCOPY TRANSORAL DIAGNOSTIC 01/07/2020 EGD INSERT HEPATIC SHUNT (TIPS) 09/20/2022 Transjugular Intrahepatic Portosystemic Shunt LEFT HEART CATH,PERCUTANEOUS 01/08/2023 MOHS HEAD/NECK STAGE 1 <=5 01/10/2024 left cheek PARACENTESIS PAST SURGICAL HISTORY OF 03/31/2023 Orthoptic Liver Transplant [facility] PROSTATE NEEDLE BIOPSY 05/19/2009 PROSTATE NEEDLE BIOPSY 01/02/2013 PROSTATECTOMY SUPRAPUBIC SUBTOTAL 1/2 STAGES 08/08/2021 + Umbilical hernia repair REMV CATARACT EXTRACAP,INSERT LENS 10/18/2020 10/04/20, 10/18/20 Social history is FAMILY HISTORY Problem Relation Age of Onset Arthritis Mother Heart Mother Pacemaker Stroke Mother w/ bowel obstruction Cancer Mother skin Heart Father Pacemaker Cancer Father skin Lipids Brother Arrhythmia Brother Atrial fib. Lipids Brother Anesthesia Problems No Family History Family History is SOCIAL HISTORY[1] HOME MEDICATIONS: Prior to Admission Medications Prescriptions Last Dose Informant Patient Reported? Taking? Amoxicillin 500 mg tablet No No Sig: Take 4 tablets by mouth as directed. Take 2g Amoxicillin 1 hr prior to dental procedure. NIFEdipine ER (PROCARDIA XL) 30 mg 24 hr tablet No No Sig: Take 1 tablet by mouth once daily. REPATHA SURECLICK 140 mg/mL pen injector No No Sig: INJECT 140 MG SUBCUTANEOUSLY EVERY 2 WEEKS. aspirin 81 mg chewable tablet No No Sig: Chew and swallow 1 tablet by mouth once daily. cholecalciferol, vitamin D3, (VITAMIN D3 ORAL) Yes No Sig: (more content not included)... Normal [facility] NT-proBNP [facility] 03-11 Natriuretic peptide.B prohormone N-Terminal [Mass/Vol] 79 pg/mL Normal <450 [facility] Comment on above: Order Comment: Speci men Type: BLOOD SPECIMEN Ordering Facility: [facility] Address: [address] [place] [address] Performed By: #### 3 3762-6 #### [facility] CLIA [id number] [address] [facility] PT panel Coag (PPP)on 2024 INR Coag (PPP) [Relative time] 1.0 {INR} Normal 0.9-1.3 [facility] Comment on above: Order Comment: Salas nichole Type: BLOOD SPECIMEN Ordering Facility: [facility] Address: [address] [place] [address] Result Comment: Raquel min K Antagonist (VKA) Therapeutic Range: INR 2 to 3 (Target INR of 2.5) Note: For patients treated with VKA drugs, such as warfarin, the [place] [employer] 2012 Guideline recommends a therapeutic INR range of 2 to 3 (target INR of 2.5). This recommendation includes high-risk patients with antiphospholipid syndrome with previous arterial or venous thromboembolism, current-generation mechanical or bioprosthetic aortic heart valve replacement. Note: Patients with mechanical aortic valve replacement and additional risk factors for thromboembolic events (atrial fibrillation, previous thromboembolism, LV dysfunction, hypercoagulable conditions) or an older generation mechanical AVR (i.e., ball in-Cage) or any mechanical MVR should have a INR therapeutic range of 2.5 to 3.5 (target INR of 3). Rebekatt GH, et al. Chest 2012, 141:7S-47S Samra RA, et al. [facility] 2017, 70: 252-289 Performed By: #### 1 4979-9, 98871-5 #### [facility] CLIA [id number] [address] [facility] PT Coag (PPP) [Time] 10.9 s Normal 9.7-13.0 [facility] Comment on above: Order Comment: Salas nichole Type: BLOOD SPECIMEN Ordering Facility: [facility] Address: [address] [place] [address] Performed By: #### 1 4979-9, 35222-5 #### [facility] CLIA [id number] [address] [facility] XR CHEST 2V FRONTAL/LATon XR CHEST 2V FRONTAL/LAT * * *Final Report* * * DATE OF EXAM: Mar 11 2025 11:15AM AKX [id number] - XR CHEST 2V FRONTAL/LAT / PROCEDURE REASON: Chest Pain * * * * Physician Interpretation * * * * EXAMINATION: CHEST RADIOGRAPH (2 VIEW FRONTAL and LATERAL) CLINICAL HISTORY: Chest Pain MQ: [id number] EXAM DATE/TIME: 03/11/2025 11:15 AM COMPARISON: 04/04/2023. RESULT: Lines, tubes, and devices: None. Lungs and pleura: No consolidation. No pleural effusion. No pneumothorax. Cardiomediastinal silhouette: Unchanged. Bones and soft tissues: Degenerative changes are present within the thoracic spine. IMPRESSION: No radiographic evidence of acute cardiopulmonary process. Bulb Grower: PSCB Transcribe Date/Time: Mar 11 2025 11:17A Dictated by : FAUZIA BALTAZAR MD This examination was interpreted and the report reviewed and electronically signed by: FAUZIA BALTAZAR MD on Mar 11 2025 11:19AM EST [id number] Normal [facility] aPTT PPPon 03-11-2025 aPTT Coag (PPP) [Time] 53.2 s High 23.0-32.4 [facility] Comment on above: Order Comment: Speci men Type: BLOOD SPECIMEN Ordering Facility: [facility] Address: [address] [place] [address] Performed By: #### 1 4979-9, 82180-2 #### 2,10E+07[facility] CLIA [id number] [address] [place] [address] aPTT Coag (PPP) [Time] 29.2 s Normal 23.0-32.4 [facility] Comment on above: Order Comment: Speci men Type: BLOOD SPECIMEN [facility] Address: [address] [place] [address] Performed By: #### 1 [id number] #### [employer] [facility] CLIA [id number] [address] [place] [address] OF [facility] Colonoscopy Study observatio non 02-12-2025 A31 Gastrointestinal Endoscopy Patient Name: Jesus Sosa Procedure Date: 02/12/2025 9:35 AM Date of : 1950 Admit Type: Outpatient Age: 75 Room: A3 [facility] 6 Gender: Male Note Status: Finalized Attending MD: Ladarius Uriarte MD, [id number] Procedure: Colonoscopy Indications: Screening for colorectal malignant neoplasm Providers: Ladarius Uriarte MD Patient Profile: This is a 75 year old male. Refer to note in patient chart for documentation of history and physical. Last Colonoscopy: 5 years ago. Referring Physician: Danita Driver (Referring MD) Medicines: Fentanyl 75 micrograms IV, Midazolam 3 mg IV Complications: No immediate complications. Requesting Provider: Procedure: Pre-Anesthesia Assessment: - Prior to the procedure, a History and Physical was performed, and patient medications and allergies were reviewed. The patient's tolerance of previous anesthesia was also reviewed. The risks and benefits of the procedure and the sedation options and risks were discussed with the patient. All questions were answered, and informed consent was obtained. Prior Anticoagulants: The patient has taken no anticoagulant or antiplatelet agents. ASA Grade Assessment: III - A patient with severe systemic disease. After reviewing the risks and benefits, the patient was deemed in satisfactory condition to undergo the procedure. After I obtained informed consent, the scope was passed under direct vision. Throughout the procedure, the patient's blood pressure, pulse, and oxygen saturations were monitored continuously. The Colonoscope was introduced through the anus and advanced to the terminal ileum, with identification of the appendiceal orifice and IC valve. The colonoscopy was performed without difficulty. The patient tolerated the procedure well. The quality of the bowel preparation was good. The terminal ileum, ileocecal valve, appendiceal orifice, and rectum were photographed. Moderate Sedation: The administration of moderate sedation was initiated at 10:51. Moderate (conscious) sedation was administered by the nurse and supervised by the endoscopist. The following parameters were monitored: oxygen saturation, heart rate, blood pressure, and response to care. Total physician intraservice time was 20 minutes. Findings: The perianal and digital rectal examinations were normal. A 5 mm polyp was found in the rectum. The polyp was sessile. The polyp was removed with a hot snare. Resection and retrieval were complete. Verification of patient identification for the specimen was done. Estimated blood loss was minimal. The exam was otherwise without abnormality. Impression: - One 5 mm polyp in the rectum, removed with a hot snare. Resected and retrieved. - The examination was otherwise normal. Estimated Blood Loss: Estimated blood loss: none. Recommendation: - Discharge patient to home. - Resume previous diet. - Continue present medications. - Await pathology results. - Repeat colonoscopy in 5 years for surveillance based on pathology results. - Patient has a contact number available for emergencies. The signs and symptoms of potential delayed complications were discussed with the patient. Return to normal activities tomorrow. Written discharge instructions were provided to the patient. Procedure Code(s): --- Professional --- 47224, Colonoscopy, flexible; with removal of tumor(s), polyp(s), or other lesion(s) by snare technique G0500, Moderate sedation services provided by the same physician or other qualified health manager intensive care unit performing a gastrointestinal endoscopic service that sedation supports, requiring the presence of an independent trained (more content not included)... PROVATION [facility] Radiology Study observation (narrative) [facility] 08-12-2024 [place] Telephone (AGCARDPOB ) JESUS SOSA ([id number]) 1950 M Date Time Provider Department 08/12/24 DEMETRIUS GOLDBERG AGCARDPOB During your visit today, we recorded the following information about you: Leslee Dean LPN 08/12/2024 12:11 PM Signed Prior auth completed on covermymeds for Repatha. Awaiting decision from insurance company. SOM Moran Taylor, LPN 08/12/2024 2:43 PM Signed Approval received for Repatha medication from 06/11/2024 to 08/12/2025 from insurance. Scanned in on 08/12/2024 for records. 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 - sulfamethoxazole-trimethopri m (BACTRIM DS) 800-160 mg per tablet Take 1 tablet by mouth every Sunday, Sunday, and Sunday. - tacrolimus IR (PROGRAF) 1 mg capsule Take 2 capsules by mouth daily at 6 am AND 1 capsule daily at 6 pm. - furosemide (LASIX) 20 mg tablet Take 1 tablet by mouth once daily. - REPATHA SURECLICK 140 mg/mL pen injector INJECT 140 MG SUBCUTANEOUSLY EVERY 2 WEEKS. - cholecalciferol, vitamin D3, (VITAMIN D3 ORAL) Take by mouth once daily. - Amoxicillin 500 mg tablet Take 4 tablets by mouth as directed. Take 2g Amoxicillin 1 hr prior to dental procedure. - lactobacillus rhamnosus (CULTURELLE) 10 billion cell capsule Take 1 capsule by mouth once daily. - aspirin 81 mg chewable tablet Chew and swallow 1 tablet by mouth once daily. Problem List As Of Date 08/12/2024 Noted Resolved Mixed hyperlipidemia [E78.2] 07/19/2007 Elevated prostate specific antigen (PSA) [R97.2*07/19/2007 07/31/2017 BPH with obstruction/lower urinary tract sympto*08/24/2008 09/15/2022 Osteoarthrosis, unspecified whether generalized*08/24/2008 01/08/2014 Primary hypertension [I10] 04/02/2009 Chronic prostatitis [N41.1] 05/26/2009 07/31/2017 Bladder neck obstruction [N32.0] 05/26/2009 01/08/2014 Impaired fasting glucose [R73.01] 11/03/2010 09/15/2022 Abnormal LFTs (liver function tests) [R79.89] 06/27/2013 01/06/2021 Rash [R21] 01/14/2015 04/17/2019 Bladder mass [N32.89] 02/24/2016 07/07/2016 Occult GI bleeding [R19.5] 01/19/2017 07/31/2017 Abnormal result of iron profile testing [R79.0] 07/15/2017 01/11/2022 Stented coronary artery [Z95.5] 07/18/2017 Tubular adenoma of colon [D12.6] 02/08/2017 04/25/2023 Hepatic fibrosis (HCC) on elastography [K74.00] 02/09/2018 02/07/2023 Coronary artery disease involving [place] mcwilliams*02/09/2018 Obesity, Class I, BMI 30-34.9 [E66.811] 02/15/2018 CKD (chronic kidney disease) stage 3, GFR 30-59*11/20/2018 VANESSA (obstructive sleep apnea) [G47.33] 12/25/2019 Umbilical hernia [K42.9] 12/25/2019 02/08/2024 Elevated LFTs [R79.89] 02/10/2020 02/07/2023 Nonalcoholic fatty liver disease without nonalc*02/10/2020 Vitamin D deficiency [E55.9] 02/10/2020 Portal hypertension with esophageal varices (HC*02/10/2020 04/25/2023 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*02/10/2020 BPH associated with nocturia [N40.1, R35.1] 08/08/2021 09/15/2022 Diarrhea [R19.7] 03/29/2022 02/07/2023 Right inguinal hernia [K40.90] 09/04/2022 04/25/2023 H/O prostatectomy [Z90.79] 09/15/2022 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] 09/15/2022 05/30/2023 Other ascites [R18.8] 09/15/2022 05/30/2023 S/P TIPS (transjugular intrahepatic portosystem*09/20/2022 04/25/2023 Pleural effusion associated with hepatic disord*09/20/2022 05/30/2023 Status post chest tube placement (HCC) [Z93.8] 09/20/2022 09/27/2022 Urinary retention [R33.9] 09/20/2022 09/27/2022 Urethral stricture [N35.919] 09/20/2022 08/13/2023 Platelets decreased (HCC) [D69.6] 10/02/2022 02/08/2024 Liver transplant recipient (HCC) [Z94.4] 03/31/2023 Post-operative pain [G89.18] 04/01/2023 04/25/2023 Acute postoperative respiratory insufficiency [*04/01/2023 04/25/2023 Acute blood loss anemia [D62] 04/01/2023 05/30/2023 Immunosuppression (HCC) [D84.9] 04/03/2023 Hyperkalemia [E87.5] 04/04/2023 08/13/2023 Bradycardia [R00.1] 04/04/2023 02/08/2024 Nicotine use disorder, F17.2 [F17.200] 04/06/2023 02/08/2024 Chronic diastolic congestive heart failure (HCC*04/16/2023 Unilateral inguinal hernia [K40.90] 05/30/2023 02/08/2024 Unspecified severe protein-calorie malnutrition*09/06/2023 02/08/2024 Basal cell carcinoma of multiple sites of head *11/2023 Edema of both legs [R60.0] 02/08/2024 Osteopenia of multiple sites [M85.89] 08/08/2024 Encounter Status:Closed by LESLEE DEAN [facility] Office Visit (GABO LAM) JESUS SOSA ([id number]) 1950 M Date Time Provider Department 07/08/24 2:20 PM DEMETRIUS GOLDBERG During your visit today, we recorded the following information about you: Pulse Respiration Blood pressure Weight 84/minute 18/minute 138/80 98.4 kg Height 1.702 m Demetrius Goldberg MD 07/08/2024 3:23 PM Signed [facility] [place] ([place] [facility] (Pob)) [address] [facility] [id number] OUTPATIENT VISIT DATE 07/08/2024 PRIMARY CARE PHYSICIAN: Willem Madsen [address] [place] [address] CHIEF COMPLAINT: HISTORY OF PRESENT ILLNESS: Mr. Sosa is a 74 year old gentleman with a history of coronary artery disease and prior stenting of the LAD and diagonal branch in 2017, chronic diastolic heart failure with likely right heart failure due to nonalcoholic steatohepatitis, liver transplant March 2023, hypertension, dyslipidemia who presents for routine follow-up. Patient continues to do well from a functional standpoint. He has not had symptoms of chest pain, chest pressure, or dyspnea on exertion. He denies symptoms concerning for congestive heart failure including PND, orthopnea, or lower extremity edema. He has not had palpitations, lightheadedness, dizziness, or syncope. PAST CARDIAC HISTORY: EF 61%, normal biventricular size/function, RVSP normal, no valvular disease, no PFO. RBBB, SR with SA, 1st degree AVB Large right pleural effusion, pending thoracentesis CAD with PCI x2 history (mLAD and Diag in 2018), scattered cor calcifications on non-con CT chest. Cath completed; patent stents, D1 large caliber vessel with a 90% focal stenosis off the first branch of the D1. LCX without concern. RCA with mild 30% focal stenosis. HLD, statin averse reaction (itching), on Praluent, LDL 83mg/dL VANESSA DURANT cirrhosis, ascites, s/p TIPS, thrombocytopenia, portal HTN, grade I EV in 2019. Dyspnea with hypoxemia on supplemental oxygen in setting of pleural effusion, improved symptoms post prior thoracentesis. CKD 3 Hx. PAST MEDICAL HISTORY Diagnosis Date Abnormal LFTs (liver function tests) 06/27/2013 F/U [facility] Arthritis Ascites Asthma Basal cell carcinoma of multiple sites of head and neck 11/2023 Dr. Perez Martinez, dermatology Bladder neck obstruction 05/26/2009 BPH with obstruction/lower urinary tract symptoms BPH with obstruction/lower urinary tract symptoms 08/24/2008 Chronic diastolic congestive heart failure (HCC) 04/16/2023 Chronic prostatitis 05/26/2009 CKD (chronic kidney disease) Coronary artery disease Elevated prostate specific antigen (PSA) 07/19/2007 Esophageal reflux 1998 admitted for chest pain Esophageal varices (HCC) Essential hypertension 04/02/2009 Former cigar smoker Hepatic fibrosis (HCC) on elastography 02/09/2018 Dr. Kelby Suarez. 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 Platelets decreased (HCC) 10/02/2022 Pleural effusion associated with hepatic disorder PMH - PAST MEDICAL HISTORY OF 1998 shingles without rash Portal vein thrombosis RBBB (right bundle branch block) 03/30/2009 Right inguinal hernia 10/03/2022 Skin cancer nose, face, ears Snoring Splenomegaly Stented coronary artery 07/18/2017 MICHELLE to diagonal and mid LAD. Tubular adenoma of colon 02/08/2017 Umbilical hernia 01/08/2014 Unilateral inguinal hernia 05/30/2023 Unspecified essential hypertension 04/02/2009 Unspecified severe protein-calorie malnutrition (HCC) 09/06/2023 Urethral stricture 09/20/2022 PAST SURGICAL HISTORY Procedure Laterality Date CC CORONARY STENT 07/18/2017 MICHELLE x 2 to mild LAD and diagonal COLONOSCOPY FLX DX W/COLLJ SPEC WHEN PFRMD 02/08/2017 Colonoscopy COLONOSCOPY FLX DX W/COLLJ SPEC WHEN PFRMD 01/07/2020 Colonoscopy CYSTOSCOPY 10/12/2020 EGD 02/01/2021 EGD 01/05/2022 ESOPHAGOGASTRODUODENOSCOPY TRANSORAL DIAGNOSTIC 01/07/2020 EGD INSERT HEPATIC SHUNT (TIPS) 09/20/2022 Transjugular Intrahepatic Portosystemic Shunt LEFT HEART CATH,PERCUTANEOUS 01/08/2023 MOHS HEAD/NECK STAGE 1 <=5 01/10/2024 left cheek PARACENTESIS PAST SURGICAL HISTORY OF 03/31/2023 Orthoptic Liver Transplant [facility] PROSTATE NEEDLE BIOPSY 05/19/2009 (more content not included)... Normal [facility] Pulmonary Visit Reporton Pulmonary Visit Report [facility] [place] [address] [place] [address] OFFICE VISIT Date of Service: 04/29/24 MR#: [id number] Acct: [id number] Name: JESUS SOSA Rep #: [id number] : 1950 Provider: RADHA Olson Age/Sex: 74/M Location: [facility].PMW Status: Signed Assessment and Plan Assessment and Plan (1) VANESSA on CPAP: Status: Chronic Comment: CPAP 12 cmH2O Plan: Stable, he is using and benefiting from Pap therapy. No indication for titration study at this time. Contact the office for any new or worsening symptoms in the meantime. Follow up in one year. (2) Obesity: Status: Chronic Qualifiers: Obesity type: due to excess calories Obesity classification: adult class 1 (BMI 30 - 34.9) Serious obesity comorbidity presence: with serious comorbidity Body mass index: BMI 32.0-32.9 Qualified Code(s): E66.811 - Obesity, class 1; E66.09 - Other obesity due to excess calories; Z68.32 - Body mass index [BMI] 32.0-32.9, adult Plan: Complicates exam, plan, care and prognosis. Encourage weight loss. Plan Details Follow Up: 1 Year ([facility]) HPI 1 y fu Chief Complaint: routine follow up HPI Comments Details: This patient presents to the office today for follow-up of his obstructive sleep apnea. He is ambulatory and on room air. He has not recently been seen in the ED or urgent care for any respiratory illness. He has not required any antibiotics or prednisone for any breathing problems. Currently he denies any difficulty with shortness of breath. He denies any cough, sputum production or hemoptysis. He denies any wheezing, chest tightness, chest pain or palpitations. He also denies any fever, chills or body aches. He wakes up feeling rested and refreshed with use of his PAP device. He is not having difficulty with dry mouth or mask leaks. He is not having excessive nocturia. He is not requiring naps and denies nodding off to sleep unintentionally. He is not having trouble with morning headaches. Compliance report for the past 30 days shows 100 % compliance with an average use of 7 hours and 36 minutes. Current setting is CPAP 12 cm of water with a residual AHI 1.7 events per hour. Leaks do not appear to be problematic. Intake Vital Signs 04/24/23 07:38 04/29/24 07:22 Height 5 ft 8 in 5 ft 8 in Weight: 214 lb BMI 32.5 BP 148/87 H Blood Pressure Location Lt brachial Position Sitting Respiration 20 H Pulse 69 Pulse Source Monitor Temp 98.4 F Temperature Source Temporal Artery Pulse Oximetry (%) 96 Oxygen Delivery Method room air Intake Visit Reasons: 1 y fu Chief Complaint: Review test results Bronc Breaker Required: No DME Vendor: cpap- [employer] Accompanied by: Self Is patient in pain?: No Allergies Ycjcjmj-Hqj-Ydq Reductase Inhibitor Adverse Reaction (Severe, Verified 04/29/24 10:28) myalgias Medications ???Medication ???Instructions ???Recorded ???Confirmed ???Type aspirin 81 mg tablet,delayed 81 mg PO DAILY heart health 07/17/17 04/29/24 History release Lactobacillus rhamnosus GG 10 1 cap PO DAILY 04/24/23 04/29/24 History billion cell capsule (Culturelle) acetaminophen 500 mg tablet 500 mg PO 04/24/23 04/29/24 History (Tylenol Extra Strength) mycophenolate mofetil 250 mg 500 mg PO BID Liver transplant 04/24/23 04/29/24 History capsule (CellCept) nifedipine 30 mg tablet,extended 30 mg PO DAILY 04/24/23 04/29/24 History release 24 hr (Procardia XL) pantoprazole 40 mg tablet,delayed 40 mg PO DAILY Liver transplant 04/24/23 04/29/24 History release (Protonix) sulfamethoxazole 800 1 tab PO .MWF Liver Transplant 04/24/23 04/29/24 History mg-trimethoprim 160 mg tablet (Bactrim DS) amoxicillin 500 mg capsule 1,000 mg PO BID 04/29/24 04/29/24 History cholecalciferol (vitamin D3) 50 50 mcg PO QDAY 04/29/24 04/29/24 History mcg (2,000 unit) capsule evolocumab 140 mg/mL subcutaneous mg subcut High cholesterol 04/29/24 04/29/24 History pen injector (Rephéctora SureNitishick) furosemide 20 mg tablet (Lasix) 20 mg PO DAILY Edema in lower legs 04/29/24 04/29/24 History tacrolimus 1 mg capsule, 1 mg PO BID Liver Transplant 04/29/24 04/29/24 History immediate-release (Prograf) Have you fallen in the past year?: No PFSH Medical History (Reviewed 04/29/24 @ 10:41 by Zulema Olson FLEXOGRAPHIC PRESS HELPER, FLEXOGRAPHIC PRESS HELPER-C) VANESSA on CPAP Pure hypercholesterolemia Presence of stent in coronary artery ( 07/18/17) Essential hypertension SOB (shortness of breath) Atherosclerotic heart disease of [place] coronary artery without angina pectoris Hyperglycemia BPH (benign prostatic hyperplasia) CKD (chronic kidney disease), stage III Surgical History (Reviewed 04/29/24 @ 10:41 by Zulema Olson FLEXOGRAPHIC PRESS HELPER, FLEXOGRAPHIC PRESS HELPER-C) Liver transplant recipient History of umbili (more content not included)... Normal [facility] CBC W Auto Differential pane l (Bld)on 04-28-2024 Basophils (Bld) [#/Vol] 0.09 10*3/uL [facility] Basophils/100 WBC (Bld) 1.4 % [facility] Differential cell count method Nom (Bld) Auto [facility] Eosinophils (Bld) [#/Vol] 0.13 10*3/uL [facility] Eosinophils/100 WBC (Bld) 2.0 % [facility] Erythrocyte distribution width (RBC) [Ratio] 13.7 % 11.5 - 15.0 % [facility] Hematocrit (Bld) [Volume fraction] 43.0 % 39.0 - 51.0 % [facility] Hemoglobin (Bld) [Mass/Vol] 14.0 g/dL 13.0 - 17.0 g/dL [facility] Immature granulocytes (Bld) [#/Vol] 0.05 10*3/uL [facility] Immature granulocytes/100 WBC (Bld) 0.8 % [facility] Lymphocytes (Bld) [#/Vol] 1.10 10*3/uL [facility] Lymphocytes/100 WBC (Bld) 17.1 % [facility] MCH (RBC) [Entitic mass] 29.9 pg 26.0 - 34.0 pg [facility] MCHC (RBC) [Mass/Vol] 32.6 g/dL 30.5 - 36.0 g/dL [facility] MCV (RBC) [Entitic vol] 91.9 fL 80.0 - 100.0 fL [facility] Monocytes (Bld) [#/Vol] 0.70 10*3/uL NINF [facility] Monocytes/100 WBC (Bld) 10.9 % [facility] Neutrophils (Bld) [#/Vol] 4.38 10*3/uL [facility] Neutrophils/100 WBC (Bld) 67.8 % [facility] Nucleated RBC (Bld) [#/Vol] NINF [facility] Nucleated RBC/100 WBC (Bld) [Ratio] 0.0 % /100 WBC [facility] Platelet mean volume (Bld) [Entitic vol] 10.5 fL 9.0 - 12.7 fL [facility] Platelets (Bld) [#/Vol] 206 10*3/uL [facility] RBC (Bld) [#/Vol] 4.68 10*6/uL 4.20 - 6.0 0 m/uL [facility] WBC (Bld) [#/Vol] 6.45 10*3/uL [facility] Comprehensive metabolic 2000 panelOrdered By: Dee Roth on 04-28-2024 Albumin [Mass/Vol] 4.5 g/dL 3.9 - 4.9 g/dL [facility] ALP [Catalytic activity/Vol] 87 U/L 38 - 113 U/L [facility] ALT [Catalytic activity/Vol] 9 U/L Low 10 - 54 U/L [facility] Anion gap [Moles/Vol] 7 mmol/L Low 8 - 15 mmol/L [facility] AST [Catalytic activity/Vol] 12 U/L Low 14 - 40 U/L [facility] Bilirubin [Mass/Vol] 0.3 mg/dL 0.2 - 1 .3 mg/dL [facility] Calcium [Mass/Vol] 9.3 mg/dL 8.5 - 10. 2 mg/dL [facility] Chloride [Moles/Vol] 104 mmol/L 98 - 10 7 mmol/L [facility] CO2 [Moles/Vol] 27 mmol/L 22 - 30 mmol/L [facility] Creatinine [Mass/Vol] 1.44 mg/dL High 0.73 - 1.22 mg/dL [facility] GFR/1.73 sq M.predicted among non-blacks MDRD (S/P/Bld) [Vol rate/Area] 51 mL/min/{1.73_m2} Low - PINF [facility] Comment on above: Estimated Glomerular Filtration Rate (eGFR) is calculated using the 2020 CKD-EPI creatinine equation. This equation utilizes serum creatinine, sex, and age as parameters. The creatinine assay has traceable calibration to isotope dilution-mass spectrometry. Refer to KDIGO guidelines for clinical interpretation. In patients with unstable renal function, e.g. those with acute kidney injury, the eGFR may not accurately reflect actual GFR. Glucose [Mass/Vol] 117 mg/dL High 74 - 99 mg/dL [facility] Comment on above: The [place] Diabete s Association (ADA) provides guidance for cutoff values for fasting glucose and random glucose. The ADA defines fasting as no caloric intake for at least 8 hours. Fasting plasma glucose results between 100 to 125 mg/dL indicate increased risk for diabetes (prediabetes). Fasting plasma glucose results greater than or equal to 126 mg/dL meet the criteria for diagnosis of diabetes. In the absence of unequivocal hyperglycemia, results should be confirmed by repeat testing. In a patient with classic symptoms of hyperglycemia or hyperglycemic crisis, random plasma glucose results greater than or equal to 200 mg/dL meet the criteria for diagnosis of diabetes. Reference: Standards of Medical Care in Diabetes 2016, [place] Diabetes Association. Diabetes Care. 2016.39(Suppl 1). Potassium [Moles/Vol] 4.4 mmol/L 3.7 - 5.1 mmol/L [facility] Protein [Mass/Vol] 6.7 g/dL 6.3 - 8.0 g/dL [facility] Sodium [Moles/Vol] 138 mmol/L 136 - 144 mmol/L [facility] Urea nitrogen [Mass/Vol] 27 mg/dL High 9 - 24 mg/dL [facility] No Panel InformationOrdered By: Dee Roth on 04-28-2024 Interpretation and review of laboratory results Abnormal [facility] PHOSPHORUS INORGANICon 04-28 Phosphate [Mass/Vol] 2.6 mg/dL Low 2.7 - 4 .8 mg/dL [facility] HEMOGLOBIN A1C (POC)on 02-07 HbA1c (Bld) [Mass fraction] 5.2 % 4.3 - 5.6 % [facility] Comment on above: Location:[facility], [place], [address] Point of care (POC) Hemoglobin A1c (HGBA1C) testing is intended to assess glucose control and provide a management tool for patients known to have diabetes and their healthcare providers. Target HGBA1C levels may depend on specific clinical circumstances. POC HGBA1C is not intended for use as a diagnostic or screening test; laboratory-based testing should be used for diagnostic purposes. The following information is supplemental and may not be applicable to specific diabetes management situations: The POC device personal development coach provides a normal range of 4.2% to 6.5% for the HGBA1C POC test. However, the [place] Diabetes Association guidelines indicate that patients with HGBA1C in the range of 5.7% to 6.4% are at increased risk for development of diabetes and that intervention by lifestyle modification may be beneficial. A HGBA1C level greater than or equal to 6.5% is considered diagnostic of diabetes, pending confirmatory testing. Use of HGBA1C testing to evaluate glucose control may not be appropriate for patients with hemoglobin variants or other conditions (e.g. anemia) that alter red blood cell lifespan. [facility] ABD LIVER VASCULARon 10-0 US ABD LIVER VASCULAR * * *Final Report* * * DATE OF EXAM: Mar 19 2023 9:42AM MDU 1233 - US ABD LIVER VASCULAR / PROCEDURE REASON: multiple diagnoses * * * * Physician Interpretation * * * * EXAMINATION: LIVER VASCULAR ULTRASOUND WITH DOPPLER IMAGING CLINICAL HISTORY: Pleural effusion associated with hepatic disorder S/P TIPS (transjugular intrahepatic portosystemic shunt) TECHNIQUE: Sonography of the liver with color and spectral Doppler imaging of the hepatic vasculature was performed. Images were obtained and stored in a permanent archive. MQ: USLV_1 COMPARISON: US 2023 RESULT: Sonographic Findings: Pancreas: Normal sonographic appearance. Portions obscured: tail Liver: Echotexture: Coarse Echogenicity: Increased Surface contour: Nodular Lesions: None. Biliary: No intrahepatic biliary duct dilation. CBD: 0.5 cm at the hilum. Gallbladder: Normal caliber -Contents: Cholelithiasis -Wall: Normal -Other: No pericholecystic fluid. Right Kidney: No hydronephrosis. Left Kidney: No hydronephrosis. Spleen: Craniocaudal length 14.3 cm, enlarged. There are no splenic lesions. Other: No ascites. Left pleural effusion. HEPATIC VASCULATURE: PORTAL SYSTEM: -Splenic Vein: Patent with antegrade flow (towards the liver). -Main PV: Patent with phasic antegrade flow (towards liver and TIPS). 74 cm/sec -Right anterior PV: Patent with retrograde flow (towards TIPS). -Right posterior PV: Not identified. -Left PV: Patent with retrograde flow (towards TIPS). Splenorenal shunt: Area obscured Recanalized paraumbilical vein: None TIPS extends from the left hepatic vein to the left portal vein. The TIPS is patent. Stent near portal vein: 162 - 196 cm/s Mid stent: 242 cm/s Stent near hepatic vein: 164 - 205 cm/s HEPATIC ARTERIES: - Main LIGHT: Normal waveform PSV: 157 cm/sec. RI: 0.85 - Right anterior LIGHT: Normal waveform - Right posterior LIGHT: Normal waveform - Left LIGTH: Normal waveform HEPATIC VEINS: -Left: Patent with decreased phasic waveform. -Middle: Patent with decreased phasic waveform. -Right: Patent with decreased phasic waveform. IVC: Patent with normal, phasic wave form. IMPRESSION: PATENT TIPS. BORDERLINE ELEVATED TIPS VELOCITIES WITHOUT GRADIENT, OF UNCERTAIN CLINICAL SIGNIFICANCE. PATENT HEPATIC VASCULATURE WITH APPROPRIATELY DIRECTED FLOW. CIRRHOSIS. NO HEPATIC LESION. Bulb Grower: RUFINA Transcribe Date/Time: Mar 19 2023 11:56A Dictated by : DANITZA FRAGOSO MD This examination was interpreted and the report reviewed and electronically signed by: DANITZA FRAGOSO MD on Mar 19 2023 12:09PM EST [id number] [facility] ABD SPLEEN -NBon 03-19-20 ABD SPLEEN -NB * * *Final Report* * * DATE OF EXAM: Mar 19 2023 9:42AM CHELE 1232 - US ABD SPLEEN -NB / PROCEDURE REASON: multiple diagnoses * * * * Physician Interpretation * * * * EXAMINATION: LIVER VASCULAR ULTRASOUND WITH DOPPLER IMAGING CLINICAL HISTORY: Pleural effusion associated with hepatic disorder S/P TIPS (transjugular intrahepatic portosystemic shunt) TECHNIQUE: Sonography of the liver with color and spectral Doppler imaging of the hepatic vasculature was performed. Images were obtained and stored in a permanent archive. MQ: USLV_1 COMPARISON: US 2023 RESULT: Sonographic Findings: Pancreas: Normal sonographic appearance. Portions obscured: tail Liver: Echotexture: Coarse Echogenicity: Increased Surface contour: Nodular Lesions: None. Biliary: No intrahepatic biliary duct dilation. CBD: 0.5 cm at the hilum. Gallbladder: Normal caliber -Contents: Cholelithiasis -Wall: Normal -Other: No pericholecystic fluid. Right Kidney: No hydronephrosis. Left Kidney: No hydronephrosis. Spleen: Craniocaudal length 14.3 cm, enlarged. There are no splenic lesions. Other: No ascites. Left pleural effusion. HEPATIC VASCULATURE: PORTAL SYSTEM: -Splenic Vein: Patent with antegrade flow (towards the liver). -Main PV: Patent with phasic antegrade flow (towards liver and TIPS). 74 cm/sec -Right anterior PV: Patent with retrograde flow (towards TIPS). -Right posterior PV: Not identified. -Left PV: Patent with retrograde flow (towards TIPS). Splenorenal shunt: Area obscured Recanalized paraumbilical vein: None TIPS extends from the left hepatic vein to the left portal vein. The TIPS is patent. Stent near portal vein: 162 - 196 cm/s Mid stent: 242 cm/s Stent near hepatic vein: 164 - 205 cm/s HEPATIC ARTERIES: - Main LIGHT: Normal waveform PSV: 157 cm/sec. RI: 0.85 - Right anterior LIGHT: Normal waveform - Right posterior LIGHT: Normal waveform - Left LIGHT: Normal waveform HEPATIC VEINS: -Left: Patent with decreased phasic waveform. -Middle: Patent with decreased phasic waveform. -Right: Patent with decreased phasic waveform. IVC: Patent with normal, phasic wave form. IMPRESSION: PATENT TIPS. BORDERLINE ELEVATED TIPS VELOCITIES WITHOUT GRADIENT, OF UNCERTAIN CLINICAL SIGNIFICANCE. PATENT HEPATIC VASCULATURE WITH APPROPRIATELY DIRECTED FLOW. CIRRHOSIS. NO HEPATIC LESION. Bulb Grower: PSCB Transcribe Date/Time: Mar 19 2023 11:56A Dictated by : DANITZA FRAGOSO MD This examination was interpreted and the report reviewed and electronically signed by: DANITZA FRAGOSO MD on Mar 19 2023 12:09PM EST [id number] Normal [facility] US DOPPLER COMPLETEon 2022 US DOPPLER COMPLETE * * *Final Report* * * DATE OF EXAM: Mar 19 2023 9:42AM MDU 1033 - US DOPPLER COMPLETE / PROCEDURE REASON: multiple diagnoses * * * * Physician Interpretation * * * * EXAMINATION: LIVER VASCULAR ULTRASOUND WITH DOPPLER IMAGING CLINICAL HISTORY: Pleural effusion associated with hepatic disorder S/P TIPS (transjugular intrahepatic portosystemic shunt) TECHNIQUE: Sonography of the liver with color and spectral Doppler imaging of the hepatic vasculature was performed. Images were obtained and stored in a permanent archive. MQ: USLV_1 COMPARISON: US 2023 RESULT: Sonographic Findings: Pancreas: Normal sonographic appearance. Portions obscured: tail Liver: Echotexture: Coarse Echogenicity: Increased Surface contour: Nodular Lesions: None. Biliary: No intrahepatic biliary duct dilation. CBD: 0.5 cm at the hilum. Gallbladder: Normal caliber -Contents: Cholelithiasis -Wall: Normal -Other: No pericholecystic fluid. Right Kidney: No hydronephrosis. Left Kidney: No hydronephrosis. Spleen: Craniocaudal length 14.3 cm, enlarged. There are no splenic lesions. Other: No ascites. Left pleural effusion. HEPATIC VASCULATURE: PORTAL SYSTEM: -Splenic Vein: Patent with antegrade flow (towards the liver). -Main PV: Patent with phasic antegrade flow (towards liver and TIPS). 74 cm/sec -Right anterior PV: Patent with retrograde flow (towards TIPS). -Right posterior PV: Not identified. -Left PV: Patent with retrograde flow (towards TIPS). Splenorenal shunt: Area obscured Recanalized paraumbilical vein: None TIPS extends from the left hepatic vein to the left portal vein. The TIPS is patent. Stent near portal vein: 162 - 196 cm/s Mid stent: 242 cm/s Stent near hepatic vein: 164 - 205 cm/s HEPATIC ARTERIES: - Main LIGHT: Normal waveform PSV: 157 cm/sec. RI: 0.85 - Right anterior LIGHT: Normal waveform - Right posterior LIGHT: Normal waveform - Left LIGHT: Normal waveform HEPATIC VEINS: -Left: Patent with decreased phasic waveform. -Middle: Patent with decreased phasic waveform. -Right: Patent with decreased phasic waveform. IVC: Patent with normal, phasic wave form. IMPRESSION: PATENT TIPS. BORDERLINE ELEVATED TIPS VELOCITIES WITHOUT GRADIENT, OF UNCERTAIN CLINICAL SIGNIFICANCE. PATENT HEPATIC VASCULATURE WITH APPROPRIATELY DIRECTED FLOW. CIRRHOSIS. NO HEPATIC LESION. Bulb Grower: RUFINA Transcribe Date/Time: Mar 19 2023 11:56A Dictated by : DANITZA FRAGOSO MD This examination was interpreted and the report reviewed and electronically signed by: DANITZA FRAGOSO MD on Mar 19 2023 12:09PM EST [id number] Normal [facility] US CHEST (POC) H23 USE ONLYo n 02-16-2023 [facility] HEMOGLOBIN A1C (POC)on 02-07 HbA1c (Bld) [Mass fraction] 4.1 % Abnormal 4.2 - 5.6 % [facility] US CHEST (POC) H23 USE ONLYo n 02-02-2023 [facility] US CHEST (POC) H23 USE ONLYo n 01-23-2023 [facility] DVT UPPER BILon US DVT UPPER REESE * * *Final Report* * * DATE OF EXAM: Jan 19 2023 3:00PM CHELE 1002 - US DVT UPPER REESE / PROCEDURE REASON: multiple diagnoses * * * * Physician Interpretation * * * * EXAMINATION: RIGHT AND LEFT UPPER EXTREMITY DEEP VENOUS ULTRASOUND WITH DOPPLER IMAGING CLINICAL HISTORY: Bilateral arm swelling. Hepatic cirrhosis TECHNIQUE: Grayscale with compression maneuvers where accessible, color and spectral Doppler of the right and left internal jugular, subclavian, and axillary veins was performed. Grayscale with compression maneuvers of the right and left basilic, brachial and cephalic veins was also performed. Images were obtained and stored in a permanent archive. MQ: USUEB_1 COMPARISON: None RESULT: RIGHT UPPER EXTREMITY DEEP VEINS Internal Jugular vein: Normal compression, normal spontaneous flow. Subclavian vein: Normal, spontaneous flow. Axillary vein: Normal compression, normal spontaneous flow. Brachial vein: Normal compression SUPERFICIAL VEINS Basilic vein: Normal compression. Cephalic vein: Normal compression. LEFT UPPER EXTREMITY DEEP VEINS Internal Jugular vein: Normal compression, normal spontaneous flow. Subclavian vein: Normal, spontaneous flow. Axillary vein: Normal compression, normal spontaneous flow. Brachial vein: Normal compression SUPERFICIAL VEINS Basilic vein: Normal compression. Cephalic vein: Normal compression. IMPRESSION: Negative study for DVT in the left and right upper extremity. Negative study for superficial thrombophlebitis in the imaged segments of the left and right upper extremity. Bilateral subcutaneous edema in the elbow and forearm region Bulb Grower: RUFINA Transcribe Date/Time: Jan 21 2023 5:36P Dictated by : PILY HENDRICKS MD This examination was interpreted and the report reviewed and electronically signed by: PILY HENDRICKS MD on Jan 21 2023 5:37PM EST [id number] [facility] US ABD LIVER VASCULARon 08-0 US ABD LIVER VASCULAR * * *Final Report* * * DATE OF EXAM: 2023 10:26AM MDU 1233 - US ABD LIVER VASCULAR / PROCEDURE REASON: Z95.828-S/P TIPS (transjugular intrahepatic portosystemic shunt) * * * * Physician Interpretation * * * * EXAMINATION: LIVER VASCULAR ULTRASOUND WITH DOPPLER IMAGING CLINICAL HISTORY: TIPS shunt follow-up TECHNIQUE: Sonography of the liver with color and spectral Doppler imaging of the hepatic vasculature was performed. Images were obtained and stored in a permanent archive. MQ: USLV_1 COMPARISON: 10/26/2022 ultrasound abdomen liver vascular. RESULT: Sonographic Findings: Pancreas: Normal sonographic appearance. Portions obscured: tail Liver: Echotexture: Coarsened Echogenicity: Slightly generally increased Surface contour: Lobulated Lesions: None. Biliary: No intrahepatic biliary duct dilation. CBD: Not visualized Gallbladder: Numerous small gallstones. Gallbladder wall measures 0.3 cm. The patient was not obviously tender when scanned over the gallbladder area. Right Kidney: No hydronephrosis. Left kidney: No hydronephrosis Spleen: Craniocaudal length 11.8 cm, largest transverse dimension is 12.3 cm. There are no splenic lesions. Other: Mild ascites Bilateral pleural effusions HEPATIC VASCULATURE: PORTAL SYSTEM: -Splenic Vein: Patent with antegrade flow (towards the liver). -Main PV: Patent with phasic antegrade flow (towards liver and TIPS). 61 cm/sec. Main portal vein measures 1.2 cm. -Right anterior PV: Patent with retrograde flow (towards TIPS). -Right posterior PV: Patent with retrograde flow (towards TIPS). -Left PV: Not well visualized Splenorenal shunt: Not visualized Recanalized paraumbilical vein: Not visualized TIPS extends from the left hepatic vein to the left portal vein. The TIPS is patent. Stent near portal vein: 157 - 149 cm/s Mid stent: 206 - 192 cm/s Stent near hepatic vein: 175 - 240 cm/s HEPATIC ARTERIES: - Main LIGHT: Normal waveform PSV: 209 cm/sec. RI: 0.91 - Right anterior LIGHT: Normal waveform - Right posterior LIGHT: Normal waveform - Left LIGHT: Normal waveform HEPATIC VEINS: -Left: Patent with triphasic waveform. -Middle: Patent with triphasic waveform. -Right: Patent with triphasic waveform. IVC: Patent with normal, phasic wave form. IMPRESSION: Patent TIPS shunt. Pleural effusions. Ascites. Gallstones. Common duct is not seen. No dilated intrahepatic bile ducts are noted. Bulb Grower: PSCB Transcribe Date/Time: Jan 10 2023 4:17P Dictated by : MARÍA ELENA COOK MD This examination was interpreted and the report reviewed and electronically signed by: MARÍA ELENA COOK MD on Jan 10 2023 4:33PM EST [id number] [facility] US ABD SPLEEN -NBon 01-10-20 US ABD SPLEEN -NB * * *Final Report* * * DATE OF EXAM: 2023 10:26AM U 1232 - US ABD SPLEEN -NB / PROCEDURE REASON: Z95.828-S/P TIPS (transjugular intrahepatic portosystemic shunt) * * * * Physician Interpretation * * * * EXAMINATION: LIVER VASCULAR ULTRASOUND WITH DOPPLER IMAGING CLINICAL HISTORY: TIPS shunt follow-up TECHNIQUE: Sonography of the liver with color and spectral Doppler imaging of the hepatic vasculature was performed. Images were obtained and stored in a permanent archive. MQ: USLV_1 COMPARISON: 10/26/2022 ultrasound abdomen liver vascular. RESULT: Sonographic Findings: Pancreas: Normal sonographic appearance. Portions obscured: tail Liver: Echotexture: Coarsened Echogenicity: Slightly generally increased Surface contour: Lobulated Lesions: None. Biliary: No intrahepatic biliary duct dilation. CBD: Not visualized Gallbladder: Numerous small gallstones. Gallbladder wall measures 0.3 cm. The patient was not obviously tender when scanned over the gallbladder area. Right Kidney: No hydronephrosis. Left kidney: No hydronephrosis Spleen: Craniocaudal length 11.8 cm, largest transverse dimension is 12.3 cm. There are no splenic lesions. Other: Mild ascites Bilateral pleural effusions HEPATIC VASCULATURE: PORTAL SYSTEM: -Splenic Vein: Patent with antegrade flow (towards the liver). -Main PV: Patent with phasic antegrade flow (towards liver and TIPS). 61 cm/sec. Main portal vein measures 1.2 cm. -Right anterior PV: Patent with retrograde flow (towards TIPS). -Right posterior PV: Patent with retrograde flow (towards TIPS). -Left PV: Not well visualized Splenorenal shunt: Not visualized Recanalized paraumbilical vein: Not visualized TIPS extends from the left hepatic vein to the left portal vein. The TIPS is patent. Stent near portal vein: 157 - 149 cm/s Mid stent: 206 - 192 cm/s Stent near hepatic vein: 175 - 240 cm/s HEPATIC ARTERIES: - Main LIGHT: Normal waveform PSV: 209 cm/sec. RI: 0.91 - Right anterior LIGHT: Normal waveform - Right posterior LIGHT: Normal waveform - Left LIGHT: Normal waveform HEPATIC VEINS: -Left: Patent with triphasic waveform. -Middle: Patent with triphasic waveform. -Right: Patent with triphasic waveform. IVC: Patent with normal, phasic wave form. IMPRESSION: Patent TIPS shunt. Pleural effusions. Ascites. Gallstones. Common duct is not seen. No dilated intrahepatic bile ducts are noted. Bulb Grower: PSYCHIATRIC Transcribe Date/Time: Jan 10 2023 4:17P Dictated by : MARÍA ELENA COOK MD This examination was interpreted and the report reviewed and electronically signed by: MARÍA ELENA COOK MD on Jan 10 2023 4:33PM EST [id number] [facility] US DOPPLER COMPLETEon 2022 US DOPPLER COMPLETE * * *Final Report* * * DATE OF EXAM: 2023 10:26AM CHELE 1033 - US DOPPLER COMPLETE / PROCEDURE REASON: Z95.828-S/P TIPS (transjugular intrahepatic portosystemic shunt) * * * * Physician Interpretation * * * * EXAMINATION: LIVER VASCULAR ULTRASOUND WITH DOPPLER IMAGING CLINICAL HISTORY: TIPS shunt follow-up TECHNIQUE: Sonography of the liver with color and spectral Doppler imaging of the hepatic vasculature was performed. Images were obtained and stored in a permanent archive. MQ: USLV_1 COMPARISON: 10/26/2022 ultrasound abdomen liver vascular. RESULT: Sonographic Findings: Pancreas: Normal sonographic appearance. Portions obscured: tail Liver: Echotexture: Coarsened Echogenicity: Slightly generally increased Surface contour: Lobulated Lesions: None. Biliary: No intrahepatic biliary duct dilation. CBD: Not visualized Gallbladder: Numerous small gallstones. Gallbladder wall measures 0.3 cm. The patient was not obviously tender when scanned over the gallbladder area. Right Kidney: No hydronephrosis. Left kidney: No hydronephrosis Spleen: Craniocaudal length 11.8 cm, largest transverse dimension is 12.3 cm. There are no splenic lesions. Other: Mild ascites Bilateral pleural effusions HEPATIC VASCULATURE: PORTAL SYSTEM: -Splenic Vein: Patent with antegrade flow (towards the liver). -Main PV: Patent with phasic antegrade flow (towards liver and TIPS). 61 cm/sec. Main portal vein measures 1.2 cm. -Right anterior PV: Patent with retrograde flow (towards TIPS). -Right posterior PV: Patent with retrograde flow (towards TIPS). -Left PV: Not well visualized Splenorenal shunt: Not visualized Recanalized paraumbilical vein: Not visualized TIPS extends from the left hepatic vein to the left portal vein. The TIPS is patent. Stent near portal vein: 157 - 149 cm/s Mid stent: 206 - 192 cm/s Stent near hepatic vein: 175 - 240 cm/s HEPATIC ARTERIES: - Main LIGHT: Normal waveform PSV: 209 cm/sec. RI: 0.91 - Right anterior LIGHT: Normal waveform - Right posterior LIGHT: Normal waveform - Left LIGHT: Normal waveform HEPATIC VEINS: -Left: Patent with triphasic waveform. -Middle: Patent with triphasic waveform. -Right: Patent with triphasic waveform. IVC: Patent with normal, phasic wave form. IMPRESSION: Patent TIPS shunt. Pleural effusions. Ascites. Gallstones. Common duct is not seen. No dilated intrahepatic bile ducts are noted. Bulb Grower: PSYCHIATRIC Transcribe Date/Time: Jan 10 2023 4:17P Dictated by : MARÍA ELENA COOK MD This examination was interpreted and the report reviewed and electronically signed by: MARÍA ELENA COOK MD on Jan 10 2023 4:33PM EST [id number] Normal [facility] BF MANUAL DIFFon 12-22-2022 Diff Total Body Fluid 100 cells counted [facility] Lymph%, BF 33 % 18 - 36 % [facility] Macro%, BF 49 % Low 64 - 80 % [facility] Meso%, BF 2 % 0 - 2 % [facility]%, BF 15 % [facility] Neut%, BF 1 % 0 - 1 % [facility] BODY FLUID CELL COUNTon 07- Clarity (Unsp spec) Slightly Cloudy Abnormal Clear [facility] Clarity (Unsp spec) Clear Clear [facility] RBC Manual cnt (Body fld) [#/Vol] 2000 /uL High <2,000 /uL [facility] Specimen source Nom (Body fld) PLEURAL FLUID RIGHT [facility] WBC Manual cnt (Body fld) [#/Vol] 230 /uL <1,000 /uL [facility] GLUCOSE BFLon 12-22-2022 Glucose (Body fld) [Mass/Vol] 112 mg/dL See Comment mg/dL [facility] Laboratory - Specimen inform ationon 12-22-2022 Color (Body fld) Yellow Yellow [facility] No Panel Informationon 12-22 [facility] US CHEST (POC) H23 USE ONLYo n 12-22-2022 [facility] US THORACENTESIS (POC) H23 U SE ONLYon 11-23-2022 [facility] US THORACENTESIS (POC) H23 U SE ONLYon 11-13-2022 [facility] US PARACENTESIS (POC) DDI US E ONLYon 11-10-2022 [facility] US ABD LIVER VASCULARon 10-09 US ABD LIVER VASCULAR * * *Final Report* * * DATE OF EXAM: Oct 26 2022 10:03AM MDU 1233 - US ABD LIVER VASCULAR / PROCEDURE REASON: multiple diagnoses * * * * Physician Interpretation * * * * EXAMINATION: LIVER VASCULAR ULTRASOUND WITH DOPPLER IMAGING CLINICAL HISTORY: 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 TIPS TECHNIQUE: Sonography of the liver with color and spectral Doppler imaging of the hepatic vasculature was performed. Images were obtained and stored in a permanent archive. MQ: USLV_1 COMPARISON: 09/25/2022 RESULT: Sonographic Findings: Pancreas: Normal sonographic appearance. Portions obscured: tail Liver: Echotexture: Coarse Echogenicity: Heterogeneous Surface contour: Nodular Lesions: None. Biliary: No intrahepatic biliary duct dilation. CBD: 0.4 cm at the hilum. Gallbladder: Thick walled with gallstones and sludge as seen previously Bilateral kidneys: No hydronephrosis. Spleen: Craniocaudal length 12.8 cm, borderline enlarged . There are no splenic lesions. Other: Trace perihepatic ascites. Small bilateral pleural effusions HEPATIC VASCULATURE: PORTAL SYSTEM: -Splenic Vein: Patent with antegrade flow (towards the liver) at the portosplenic confluence but retrograde flow at the hilum. -Main PV: Patent with phasic antegrade flow (towards liver and TIPS). 88 cm/sec. 12 mm in diameter -Right anterior PV: Patent with retrograde flow (towards TIPS). -Right posterior PV: Not identified. -Left PV: Patent with retrograde flow (towards TIPS). Splenorenal shunt: None Recanalized paraumbilical vein: Present TIPS extends from the left hepatic vein to the right portal vein. The TIPS is patent. Stent near portal vein: 210 - 251 cm/s Mid stent: 294 - 326 cm/s Stent near hepatic vein: 231 - 240 cm/s HEPATIC ARTERIES: - Main LIGHT: Normal waveform PSV: 194 cm/sec. RI: 0.81 - Right anterior LIGHT: Normal waveform - Right posterior LIGHT: Normal waveform - Left LIGHT: Normal waveform HEPATIC VEINS: -Left: Obstructed visualization due to TIPS -Middle: Patent with triphasic waveform. -Right: Patent with triphasic waveform. IVC: Patent with normal, phasic wave form. IMPRESSION: PATENT TIPS. PATENT HEPATIC VASCULATURE WITH APPROPRIATELY DIRECTED FLOW. However, peak systolic velocities within the TIPS are greater than previous. Retrograde flow seen within the splenic vein at the hilus. CIRRHOTIC LIVER MORPHOLOGY. NO HEPATIC LESION. Cholelithiasis and gallbladder sludge with wall thickening as seen previously Trace ascites and small bilateral pleural effusions Bulb Grower: RUFINA Transcribe Date/Time: Oct 29 2022 8:25A Dictated by : PILY HENDRICKS MD This examination was interpreted and the report reviewed and electronically signed by: IPLY HENDRICKS MD on Oct 29 2022 8:41AM EST [id number] [facility] US ABD SPLEEN -NBon 10-27-19 ABD SPLEEN -NB * * *Final Report* * * DATE OF EXAM: Oct 26 2022 10:03AM CHELE 1232 - US ABD SPLEEN -NB / PROCEDURE REASON: multiple diagnoses * * * * Physician Interpretation * * * * EXAMINATION: LIVER VASCULAR ULTRASOUND WITH DOPPLER IMAGING CLINICAL HISTORY: 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 TIPS TECHNIQUE: Sonography of the liver with color and spectral Doppler imaging of the hepatic vasculature was performed. Images were obtained and stored in a permanent archive. MQ: USLV_1 COMPARISON: 09/25/2022 RESULT: Sonographic Findings: Pancreas: Normal sonographic appearance. Portions obscured: tail Liver: Echotexture: Coarse Echogenicity: Heterogeneous Surface contour: Nodular Lesions: None. Biliary: No intrahepatic biliary duct dilation. CBD: 0.4 cm at the hilum. Gallbladder: Thick walled with gallstones and sludge as seen previously Bilateral kidneys: No hydronephrosis. Spleen: Craniocaudal length 12.8 cm, borderline enlarged . There are no splenic lesions. Other: Trace perihepatic ascites. Small bilateral pleural effusions HEPATIC VASCULATURE: PORTAL SYSTEM: -Splenic Vein: Patent with antegrade flow (towards the liver) at the portosplenic confluence but retrograde flow at the hilum. -Main PV: Patent with phasic antegrade flow (towards liver and TIPS). 88 cm/sec. 12 mm in diameter -Right anterior PV: Patent with retrograde flow (towards TIPS). -Right posterior PV: Not identified. -Left PV: Patent with retrograde flow (towards TIPS). Splenorenal shunt: None Recanalized paraumbilical vein: Present TIPS extends from the left hepatic vein to the right portal vein. The TIPS is patent. Stent near portal vein: 210 - 251 cm/s Mid stent: 294 - 326 cm/s Stent near hepatic vein: 231 - 240 cm/s HEPATIC ARTERIES: - Main LIGHT: Normal waveform PSV: 194 cm/sec. RI: 0.81 - Right anterior LIGHT: Normal waveform - Right posterior LIGHT: Normal waveform - Left LIGHT: Normal waveform HEPATIC VEINS: -Left: Obstructed visualization due to TIPS -Middle: Patent with triphasic waveform. -Right: Patent with triphasic waveform. IVC: Patent with normal, phasic wave form. IMPRESSION: PATENT TIPS. PATENT HEPATIC VASCULATURE WITH APPROPRIATELY DIRECTED FLOW. However, peak systolic velocities within the TIPS are greater than previous. Retrograde flow seen within the splenic vein at the hilus. CIRRHOTIC LIVER MORPHOLOGY. NO HEPATIC LESION. Cholelithiasis and gallbladder sludge with wall thickening as seen previously Trace ascites and small bilateral pleural effusions Bulb Grower: RUFINA Transcribe Date/Time: Oct 29 2022 8:25A Dictated by : PILY HENDRICKS MD This examination was interpreted and the report reviewed and electronically signed by: PILY HENDRICKS MD on Oct 29 2022 8:41AM EST [id number] [facility] US DOPPLER COMPLETEon 2022 US DOPPLER COMPLETE * * *Final Report* * * DATE OF EXAM: Oct 26 2022 10:03AM CHELE 1033 - US DOPPLER COMPLETE / PROCEDURE REASON: multiple diagnoses * * * * Physician Interpretation * * * * EXAMINATION: LIVER VASCULAR ULTRASOUND WITH DOPPLER IMAGING CLINICAL HISTORY: 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 TIPS TECHNIQUE: Sonography of the liver with color and spectral Doppler imaging of the hepatic vasculature was performed. Images were obtained and stored in a permanent archive. MQ: USLV_1 COMPARISON: 09/25/2022 RESULT: Sonographic Findings: Pancreas: Normal sonographic appearance. Portions obscured: tail Liver: Echotexture: Coarse Echogenicity: Heterogeneous Surface contour: Nodular Lesions: None. Biliary: No intrahepatic biliary duct dilation. CBD: 0.4 cm at the hilum. Gallbladder: Thick walled with gallstones and sludge as seen previously Bilateral kidneys: No hydronephrosis. Spleen: Craniocaudal length 12.8 cm, borderline enlarged . There are no splenic lesions. Other: Trace perihepatic ascites. Small bilateral pleural effusions HEPATIC VASCULATURE: PORTAL SYSTEM: -Splenic Vein: Patent with antegrade flow (towards the liver) at the portosplenic confluence but retrograde flow at the hilum. -Main PV: Patent with phasic antegrade flow (towards liver and TIPS). 88 cm/sec. 12 mm in diameter -Right anterior PV: Patent with retrograde flow (towards TIPS). -Right posterior PV: Not identified. -Left PV: Patent with retrograde flow (towards TIPS). Splenorenal shunt: None Recanalized paraumbilical vein: Present TIPS extends from the left hepatic vein to the right portal vein. The TIPS is patent. Stent near portal vein: 210 - 251 cm/s Mid stent: 294 - 326 cm/s Stent near hepatic vein: 231 - 240 cm/s HEPATIC ARTERIES: - Main LIGHT: Normal waveform PSV: 194 cm/sec. RI: 0.81 - Right anterior LIGHT: Normal waveform - Right posterior LIGHT: Normal waveform - Left LIGHT: Normal waveform HEPATIC VEINS: -Left: Obstructed visualization due to TIPS -Middle: Patent with triphasic waveform. -Right: Patent with triphasic waveform. IVC: Patent with normal, phasic wave form. IMPRESSION: PATENT TIPS. PATENT HEPATIC VASCULATURE WITH APPROPRIATELY DIRECTED FLOW. However, peak systolic velocities within the TIPS are greater than previous. Retrograde flow seen within the splenic vein at the hilus. CIRRHOTIC LIVER MORPHOLOGY. NO HEPATIC LESION. Cholelithiasis and gallbladder sludge with wall thickening as seen previously Trace ascites and small bilateral pleural effusions Bulb Grower: RUFINA Transcribe Date/Time: Oct 29 2022 8:25A Dictated by : PILY HENDRICKS MD This examination was interpreted and the report reviewed and electronically signed by: PILY HENDRICKS MD on Oct 29 2022 8:41AM EST [id number] Normal [facility] CT CHEST WO IVCONon 10-19-19 [facility] US THORACENTESIS (POC) H23 U SE ONLYon 10-09-2022 [facility] XR CHEST 2V FRONTAL/LATon [facility] US PARACENTESIS (POC) DDI US E ONLYon 10-06-2022 [facility] XR Chest PA and LateralOrder ed By: [facility] Provider on 10-03-2022 Interpretation and review of laboratory results Abnormal [facility] Radiology Result ACTIONABLE Abnormal [facility] Comment on above: This report contains an incidental or actionable finding. This finding may be a new finding separate from the reason your provider ordered the imaging test or it may be an already known finding that needs additional or continued follow-up. Because of this incidental or actionable finding, you may need another test (imaging or a different type of test). Please contact your provider for the next steps. [facility] XR Chest PA and Lateralon IMPRESSION: Moderate right hydropneumothorax is grossly stable. Persistent significant opacity at the right lung base, likely due to combination of fluid, atelectasis and superimposed consolidation. Left pleural effusion and basal atelectasis is again seen CT scans may be helpful for further evaluation ACTIONABLE RESULT: FOLLOW-UP Acuity: Actionable Findings: Thoracic-Other Routing Code: CT_1 Recommendation: CT Chest WO IVCON Time Frame: At the discretion of the clinical team. COMMUNICATION: Results will be communicated with the ordering provider via [employer] staff message or phone message by [employer] within 2 business days of report finalization. ======== Algorithms for management of incidental imaging findings can be found on the [facility] Intranet Sharepoint site at: [email or web address] tion/[email or web address]/Managing%2 0Incidental%20Findi ngs%20at%20Imaging/Forms/All Items.aspx Bulb Grower: RUFINA Transcribe Date/Time: Oct 03 2022 9:18A Dictated by : STEVEN GARCIA MD This examination was interpreted and the report reviewed and electronically signed by: STEVEN GARCIA MD on Oct 03 2022 9:22AM [facility] DIVISION OF RADIOLOGY * * *Final Report* * * DATE OF EXAM: Oct 03 2022 9:12AM WOX 5291 - XR CHEST 2V FRONTAL/LAT / PROCEDURE REASON: multiple diagnoses * * * * Physician Interpretation * * * * EXAMINATION: CHEST RADIOGRAPH (2 VIEW FRONTAL & LATERAL) CLINICAL HISTORY: Pleural effusion associated with hepatic disorder MQ: XC2_6 EXAM DATE/TIME: 10/03/2022 9:12 AM COMPARISON: 09/27/2022 RESULT: Lines, tubes, and devices: None. Lungs and pleura: Moderate right hydropneumothorax is again seen. Grossly stable. Significant opacity at the right lung base likely due to combination of fluid, atelectasis and possibly superimposed consolidation. Small left pleural effusion and basal atelectasis Cardiomediastinal silhouette: Stable cardiomediastinal silhouette. Bones and soft tissues: Unremarkable. DIVISION OF RADIOLOGY Provider, [facility] - 10/03/2022 * * *Final Report* * * DATE OF EXAM: Oct 03 2022 9:12AM WOX 5291 - XR CHEST 2V FRONTAL/LAT / PROCEDURE REASON: multiple diagnoses * * * * Physician Interpretation * * * * EXAMINATION: CHEST RADIOGRAPH (2 VIEW FRONTAL & LATERAL) CLINICAL HISTORY: Pleural effusion associated with hepatic disorder MQ: XC2_6 EXAM DATE/TIME: 10/03/2022 9:12 AM COMPARISON: 09/27/2022 RESULT: Lines, tubes, and devices: None. Lungs and pleura: Moderate right hydropneumothorax is again seen. Grossly stable. Significant opacity at the right lung base likely due to combination of fluid, atelectasis and possibly superimposed consolidation. Small left pleural effusion and basal atelectasis Cardiomediastinal silhouette: Stable cardiomediastinal silhouette. Bones and soft tissues: Unremarkable. IMPRESSION IMPRESSION: Moderate right hydropneumothorax is grossly stable. Persistent significant opacity at the right lung base, likely due to combination of fluid, atelectasis and superimposed consolidation. Left pleural effusion and basal atelectasis is again seen CT scans may be helpful for further evaluation ACTIONABLE RESULT: FOLLOW-UP Acuity: Actionable Findings: Thoracic-Other Routing Code: CT_1 Recommendation: CT Chest WO IVCON Time Frame: At the discretion of the clinical team. COMMUNICATION: Results will be communicated with the ordering provider via [employer] staff message or phone message by [employer] within 2 business days of report finalization. ======== Algorithms for management of incidental imaging findings can be found on the [facility] Intranet Sharepoint site at: http://[email or web address].[email or web address]/documenta tion/[email or web address]/Managing%2 0Incidental%20Findi ngs%20at%20Imaging/Forms/All Items.aspx Bulb Grower: RUFINA Transcribe Date/Time: Oct 03 2022 9:18A Dictated by : STEVEN GARCIA MD This examination was interpreted and the report reviewed and electronically signed by: STEVEN GARCIA MD on Oct 03 2022 9:22AM EST [facility] Radiology Study observation (narrative) [facility] BF MANUAL DIFFon 09-06-2022 DIF TTL, BODY FLUID 100 cells counted Normal [facility] Comment on above: Order Comment: Speci men Type: BODY FLUID SPECIMENOrdering Facility: [facility] Address: [address] [place], [place] [address] Performed By: #### C CBF ####[facility] [id number] [address] [place]#### [id number] ####[facility] LABCLIA [id number] [address] [place] LYMPH%, BF 45 % High 18-36 [facility] Comment on above: Order Comment: Speci men Type: BODY FLUID SPECIMENOrdering Facility: [facility] Address: [address] [place] [address] Performed By: #### C CBF ####[facility]ORYCLIA [id number] [place] [address] [facility] [place]#### [id number] ####[facility] LABCLIA [id number] [place] [address] [place] MACRO%, BF 36 % Low 64-80 [facility] Comment on above: Order Comment: Speci men Type: BODY FLUID SPECIMENOrdering Facility: [facility] Address: [address] [place] [address] Performed By: #### C CBF ####[facility]ORATORYCLIA [id number] [address]#### [id number] ####[facility] LABCLIA [id number] [address] [place] MESO %, BF 8 % High 0-2 [facility] Comment on above: Order Comment: Speci men Type: BODY FLUID SPECIMENOrdering Facility: [facility] Address: [address] [place] [address] Performed By: #### C CBF ####[facility]ATORYCLIA [id number] [address]#### [id number] ####[facility] LABCLIA [id number] [address] [place] MONO% BF 5 % Normal [facility] Comment on above: Order Comment: Speci men Type: BODY FLUID SPECIMENOrdering Facility: [facility] Address: [address] [place] [address] Performed By: #### C CBF ####[facility]ORATORYCLIA [id number] [address] [place]#### [id number] ####[facility] LABCLIA [id number] [place] [address] [place] NEUT%, BF 3 % High 0-1 [facility] Comment on above: Order Comment: Speci men Type: BODY FLUID SPECIMENOrdering Facility: [facility] Address: [address] [place] [address] Performed By: #### C CBF ####[facility]ORATORYCLIA [id number] [place] [address] [place]#### [id number] ####[facility] LABCLIA [id number] [place] [address] [place] OTHER CL%, BF 3 % Normal [facility] Comment on above: Order Comment: Speci men Type: BODY FLUID SPECIMENOrdering Facility: [facility] Address: [address] [place] [address] Result Comment: Reac tive mesothelial Performed By: #### C CBF ####[facility] LABORATORYCLIA [id number] [place] [address] [place]#### [id number] ####[facility] LABCLIA [id number] [place] [address] [place] BODY FLUID CELL COUNTon 03-2 Clarity (Unsp spec) Slightly Cloudy Abnormal Clear [facility] Comment on above: Order Comment: Speci men Type: BODY FLUID SPECIMENOrdering Facility: [facility] Address: [address] [place] [address] Performed By: #### C CBF ####[facility]ORATORYCLIA [id number] [place] [address] [place]#### [id number] ####[facility] LABCLIA [id number] [place] [address] [place] Color (Body fld) Yellow Normal Yellow [facility] Comment on above: Order Comment: Speci men Type: BODY FLUID SPECIMENOrdering Facility: [facility] Address: [address] [id number] Performed By: #### C CBF ####[facility] LABORATORYCLIA [id number] [place] [address] [place]#### [id number] ####[facility] LABCLIA [id number] [place] [address] [place] RBC Manual cnt (Body fld) [#/Vol] <2000 Normal <2000 [facility] Comment on above: Order Comment: Speci men Type: BODY FLUID SPECIMENOrdering Facility: [facility] Address: [address] [place] [address] Performed By: #### C CBF ####[facility] LABORATORYCLIA [id number] [place] [address] [place]#### [id number] ####[facility] LABCLIA [id number] [address] [place] Specimen source Nom (Body fld) ASCITES FLUID Normal [facility] Comment on above: Order Comment: Speci men Type: BODY FLUID SPECIMENOrdering Facility: [facility] Address: [address] [place] [address] Performed By: #### C CBF ####[facility]ORATORYCLIA [id number] [place] [address] [place]#### [id number] ####[facility] LABCLIA [id number] [place] [address] [place] WBC Manual cnt (Body fld) [#/Vol] 138 /uL Normal <1000 [facility] Comment on above: Order Comment: Speci men Type: BODY FLUID SPECIMENOrdering Facility: [facility] Address: [address] [place] [address] Performed By: #### C CBF ####[facility]ORATORYCLIA [id number] [place] [address] [place]#### [id number] ####[facility] LABCLIA [id number] [address] [place] [address] [place] BRIEF OP NOTon 09-06-2022 BRIEF OP NOT HNO ID: [id number] Author: Thom Dobbins APRN.CNP Service: Interventional Radiology Author Type: Nurse Practitioner Type: Brief Op Note Filed: 09/06/2022 1:47 PM Note Text: BRIEF OP NOTE LOG ID: [id number] Surgery/Procedure Date: 09/06/2022 Surgeon(s)/Proceduralist(s) and Analyst Programmer(s): Thom Dobbins APRN.CNP Procedure(s): paracentesis Anesthesia: local 5 ml lidocaine Findings: 1900 ml clear yellow fluid Estimated Blood Loss: <3 ml Specimens: Yes Complications: none Pre-Op/Pre-Procedure Diagnosis: ascites Post-Op/Post-Procedure Diagnosis: same SIGNATURE: Thom Dobbins APRN.CNP PATIENT NAME: Jesus Sosa DATE: September 06, 2022 TIME: 1:46 PM PAGER/CONTACT #: Normal [facility] CBC panel Auto (Bld)on 09-06 Erythrocyte distribution width (RBC) [Ratio] 16.1 % High 11.5-15.0 [facility] Comment on above: Order Comment: Speci men Type: BLOOD SPECIMENOrdering Facility: [facility] Address: [address] [place] [address] Performed By: #### 5 8410-2 ####[facility]ATORYCLIA [id number] [address] [place] Hematocrit (Bld) [Volume fraction] 33.6 % Low 39.0-51.0 [facility] Comment on above: Order Comment: Speci men Type: BLOOD SPECIMENOrdering Facility: [facility] Address: [address] [place] [address] Performed By: #### 5 8410-2 ####[facility]ATORYCLIA [id number] [address] [place] Hemoglobin (Bld) [Mass/Vol] 11.2 g/dL Low 13.0-17.0 [facility] Comment on above: Order Comment: Speci men Type: BLOOD SPECIMENOrdering Facility: [facility] Address: [address] [address] Performed By: #### 5 8410-2 ####[facility]ORATORYCLIA [id number] [address] MCH (RBC) [Entitic mass] 33.9 pg Normal 26.0-34.0 [facility] Comment on above: Order Comment: Speci men Type: BLOOD SPECIMENOrdering Facility: [facility] Address: [address] [address] Performed By: #### 5 8410-2 ####[facility]ORATORYCLIA [id number] [address] MCHC (RBC) [Mass/Vol] 33.3 g/dL Normal 30.5-36.0 [facility] Comment on above: Order Comment: Speci men Type: BLOOD SPECIMENOrdering Facility: [facility] Address: [address] [address] Performed By: #### 5 8410-2 ####[facility]ORATORYCLIA [id number] [address] MCV (RBC) [Entitic vol] 101.8 fL High 80.0-100.0 [facility] Comment on above: Order Comment: Speci men Type: BLOOD SPECIMENOrdering Facility: [facility] Address: [address] [address] Performed By: #### 5 8410-2 ####[facility]ORATORYCLIA [id number] [address] Nucleated RBC (Bld) [#/Vol] 10*3/uL Normal <0.01 [facility] Comment on above: Order Comment: Speci men Type: BLOOD SPECIMENOrdering Facility: [facility] Address: [address] [address] Performed By: #### 5 8410-2 ####[facility]ORATORYCLIA [id number] [address] Platelet mean volume (Bld) [Entitic vol] 9.9 fL Normal 9.0-12.7 [facility] Comment on above: Order Comment: Speci men Type: BLOOD SPECIMENOrdering Facility: [facility] Address: [address] [place] [address] Performed By: #### 5 8410-2 ####[facility]ORATORYCLIA [id number] [address] Platelets (Bld) [#/Vol] 116 10*3/uL Low 150-400 [facility] Comment on above: Order Comment: Speci men Type: BLOOD SPECIMENOrdering Facility: [facility] Address: [address] [place] [address] Performed By: #### 5 8410-2 ####[facility] LABORATORYCLIA [id number] [address] [place] RBC (Bld) [#/Vol] 3.30 10*6/uL Low 4.20-6.00 [facility] Comment on above: Order Comment: Speci men Type: BLOOD SPECIMENOrdering Facility: [facility] Address: [address] [place] [address] Performed By: #### 5 8410-2 ####[facility] LABORATORYCLIA [id number] [address] WBC (Bld) [#/Vol] 5.51 10*3/uL Normal 3.70-11.00 [facility] Comment on above: Order Comment: Speci men Type: BLOOD SPECIMENOrdering Facility: [facility] Address: [address] [place] [address] Performed By: #### 5 8410-2 ####[facility] LABORATORYCLIA [id number] [address] PT panel Coag (PPP)on 2022 INR Coag (PPP) [Relative time] 1.2 {INR} Normal 0.9-1.3 [facility] Comment on above: Order Comment: Speci men Type: BLOOD SPECIMENOrdering Facility: [facility] Address: [address] [place] [address] Result Comment: Raquel min K Antagonist (VKA) Therapeutic Range: INR 2 to 3 (Target INR of 2.5) Note: For patients treated with VKA drugs, such as warfarin, the [place] [employer] 2012 Guideline recommends a therapeutic INR range of 2 to 3 (target INR of 2.5). This recommendation includes high-risk patients with antiphospholipid syndrome with previous arterial or venous thromboembolism, current-generation mechanical or bioprosthetic aortic heart valve replacement. Note: Patients with mechanical aortic valve replacement and additional risk factors for thromboembolic events (atrial fibrillation, previous thromboembolism, LV dysfunction, hypercoagulable conditions) or an older generation mechanical AVR (i.e., ball in-Cage) or any mechanical MVR should have a INR therapeutic range of 2.5 to 3.5 (target INR of 3). Soumya GH, et al. Chest 2012, 141:7S-47S Samra RA, et al. [facility] 2017, 70: 252-289 Performed By: #### 3 4528-0 ####[facility] LABORATORYCLIA [id number] [place] [address] [place] PT Coag (PPP) [Time] 12.4 s Normal 9.7-13.0 [facility] Comment on above: Order Comment: Speci men Type: BLOOD SPECIMENOrdering Facility: [facility] Address: [address] [place], [place] [address] Performed By: #### 3 4528-0 ####[facility] LABORATORYCLIA [id number] [place] [address] [place] US ASCITES SURVEYon 09-07-19 23 US ASCITES SURVEY * * *Final Report* * * DATE OF EXAM: Sep 06 2022 1:52PM CHELE 1016 - US ASCITES SURVEY / PROCEDURE REASON: ascites * * * * Physician Interpretation * * * * EXAM(s): US ASCITES SURVEY EXAM DATE/TIME: 09/06/2022 1:52 PM HISTORY: 72 years old Clinical information: ascites TECHNIQUE: Images: US ASCITES SURVEY Comparison: None. RESULT: Findings: Small amount of ascities in all 4 quadrants. IMPRESSION: Small amount of ascities noted.. Bulb Grower: RUFINA Transcribe Date/Time: Sep 06 2022 2:07P Dictated by : SHEELA LEVINE DO This examination was interpreted and the report reviewed and electronically signed by: SHEELA LEVINE DO on Sep 06 2022 2:07PM EST [id number] [facility] US PARACENTESIS BIon 023 US PARACENTESIS BI * * *Final Report* * * DATE OF EXAM: Sep 06 2022 1:52PM CHELE 2038 - US PARACENTESIS BI / PROCEDURE REASON: K74.69-Other cirrhosis of liver (HCC) * * * * Physician Interpretation * * * * EXAM TITLE: ULTRASOUND GUIDED PARACENTESIS CLINICAL HISTORY: Ascites PROCEDURE DATE: 09/06/2022 COMPARISON: Ascites survey dated 09/06/2022 TECHNIQUE: Informed consent was obtained from the patient. The patient was placed in a supine position and with ultrasound guidance an appropriate skin entry site in the right abdomen was identified, prepped, and anesthetized. With ultrasound guidance a 5-Anguillan Yuey needle and sheath was passed into the peritoneal space and 1900 cc of clear yellow fluid was withdrawn. Specimens were sent for laboratory evaluation. There were no apparent complications. RESULT: Ultrasound revealed a generous amount of ascites containing no debris. IMPRESSION: Technically successful ultrasound guided paracentesis yielded 1900 cc of clear yellow fluid. Bulb Grower: PSCB Transcribe Date/Time: Sep 06 2022 1:56P Dictated by : THOM DOBBINS CNP This examination was interpreted and the report reviewed and electronically signed by: THOM DOBBINS CNP on Sep 06 2022 1:57PM EST [id number] [facility] CNPNon 08-22-2022 [place] Telephone ([facility]) JESUS SOSA ([id number]) 1950 M Date Time Provider Department 08/22/22 ANJELICA ENRIQUEZ During your visit today, we recorded the following information about you: Anjelica Enriquez PA-C 08/22/2022 2:08 PM Signed Returning patient call after he reached out to the office to inquire about scheduling. Patient expressed understanding at delays in scheduling but emphasized he would like to be scheduled as soon as possible. Informed patient that his case had been escalated to hopefully expedite scheduling. Patient thanked me for the call and expressed desire to be kept in the loop with any updates. Fabian Franks and Tawny Garza notified regarding delays in scheduling. Anjelica Enriquez PA-C August 22, 2022 2:08 PM Allergies As of Date: 08/22/2022 Noted Allergy Reaction [id number] REDUCTASE INHIBIT*07/27/2020 9 - Itching Date Reviewed: 08/14/2022 Reviewed by: Anjelica Clark, RN - Fully Assessed Reason for Visit: Patient Update [1234] Prescriptions as of 08/22/2022 - carvedilol (COREG) 3.125 mg tablet Take 2 tablets by mouth twice daily with meals. - iv contrast (will be provided with radiology test) CT LIVER Inject, intravenously, once for 1 dose.No IV access, insert saline lock prior to the beginning of sedation, infusion, injection of imaging exam. Discontinue saline lock post exam. If Pt. has a central line or IVAD, may access for administration according to line specific nursing protocol. Once exam is complete flush line and de-access according to line specific nursing protocol in the CT contrast administration guidelines link. - fenofibrate nanocrystallized (TRICOR) 48 mg tablet Take 1 tablet by mouth once daily. - furosemide (LASIX) 20 mg tablet TAKE 1 TABLET BY MOUTH EVERY DAY - spironolactone (ALDACTONE) 50 mg tablet TAKE 1 TABLET BY MOUTH EVERY DAY - Cholecalciferol, Vitamin D3, (VITAMIN D-3) 50 mcg (2,000 unit) cap Take 1 capsule by mouth once daily. - acetaminophen (TYLENOL) 325 mg tablet Take 2 tablets by mouth every 4 hours as needed for pain. - alirocumab (PRALUENT PEN) 150 mg/mL Inject 150 mg subcutaneously every 2 weeks. Per cabbage salter.in place of statin - aspirin(ECOTRIN LOW STRENGTH 81 MG TAB) Take one(1) tablet daily. 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 Osteoarthrosis, unspecified whether generalized*08/24/2008 01/08/2014 Essential hypertension [I10] 04/02/2009 Chronic prostatitis [N41.1] 05/26/2009 07/31/2017 Bladder neck obstruction [N32.0] 05/26/2009 01/08/2014 Impaired fasting glucose [R73.01] 11/03/2010 Abnormal LFTs (liver function tests) [R79.89] 06/27/2013 01/06/2021 Rash [R21] 01/14/2015 04/17/2019 Bladder mass [N32.89] 02/24/2016 07/07/2016 Occult GI bleeding [R19.5] 01/19/2017 07/31/2017 Abnormal result of iron profile testing [R79.0] 07/15/2017 01/11/2022 Stented coronary artery [Z95.5] 07/18/2017 Tubular adenoma of colon [D12.6] 02/08/2017 Hepatic fibrosis (HCC) on elastography [K74.00] 02/09/2018 Coronary arteriosclerosis in [place] artery [I25*02/09/2018 Obesity, Class I, BMI 30-34.9 [E66.9] 02/15/2018 CKD (chronic kidney disease) stage 3, GFR 30-59*11/20/2018 VANESSA (obstructive sleep apnea) [G47.33] 12/25/2019 Umbilical hernia [K42.9] 12/25/2019 Elevated LFTs [R79.89] 02/10/2020 Nonalcoholic fatty liver disease without nonalc*02/10/2020 Vitamin D deficiency [E55.9] 02/10/2020 Portal hypertension with esophageal varices (HC*02/10/2020 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*02/10/2020 BPH associated with nocturia [N40.1, R35.1] 08/08/2021 Diarrhea [R19.7] 03/29/2022 Encounter Status:Closed by ANJELICA ENRIQUEZ on 08/22/22 [facility] XR CHEST 2V FRONTAL/LATon [facility] US ASCITES SURVEYon 08-12-19 US ASCITES SURVEY * * *Final Report* * * DATE OF EXAM: Aug 11 2022 12:16PM CHELE 1016 - US ASCITES SURVEY / PROCEDURE REASON: K74.69-Other cirrhosis of liver (HCC) * * * * Physician Interpretation * * * * PROCEDURE: US ASCITES SURVEY INDICATION: K74.69-Other cirrhosis of liver (HCC) TECHNIQUE: Multiple sonographic images of the abdomen/pelvis were obtained and stored in a permanent archive. IMPRESSION: Moderate volume ascites, most prominent in the right upper and lower quadrants. Bulb Grow[facility] Transcribe Date/Time: Aug 11 2022 12:51P Dictated by : PILY HENDRICKS MD This examination was interpreted and the report reviewed and electronically signed by: PILY HENDRICKS MD on Aug 11 2022 12:52PM EST [id number] [facility] US PARACENTESIS BIon 023 US PARACENTESIS BI * * *Final Report* * * DATE OF EXAM: Aug 11 2022 12:16PM CHELE 2038 - US PARACENTESIS BI / PROCEDURE REASON: K74.69-Other cirrhosis of liver (HCC) * * * * Physician Interpretation * * * * EXAM TITLE: ULTRASOUND GUIDED PARACENTESIS CLINICAL HISTORY: Ascites PROCEDURE DATE: 08/11/2022 COMPARISON: Ascites survey dated 08/11/2022 TECHNIQUE: Informed consent was obtained from the patient. The patient was placed in a supine position and with ultrasound guidance an appropriate skin entry site in the right abdomen was identified, prepped, and anesthetized. With ultrasound guidance a 5-[place] Yuey needle and sheath was passed into the peritoneal space and 2100 cc of clear yellow fluid was withdrawn. No specimens were sent for laboratory evaluation. There were no apparent complications. RESULT: Ultrasound revealed a generous amount of ascites containing no debris. IMPRESSION: Technically successful ultrasound guided paracentesis yielded 2100 cc of clear yellow fluid. Bulb Grower: RUFINA Transcribe Date/Time: Aug 11 2022 12:25P Dictated by : THOM DOBBINS CNP This examination was interpreted and the report reviewed and electronically signed by: THOM DOBBINS CNP on Aug 11 2022 12:26PM EST [id number] Normal [facility] TYPE AND SCREEN,30 DAYon ABO A [facility] HIstorical Ab Scr Status Negative [facility] Rh Nom (Bld) Positive [facility] CBC W Auto Differential pane l (Bld)on 08-08-2022 Basophils (Bld) [#/Vol] 0.09 10*3/uL <0.11 k/uL [facility] Basophils/100 WBC (Bld) 2.0 % [facility] Differential cell count method Nom (Bld) Auto [facility] Eosinophils (Bld) [#/Vol] 0.29 10*3/uL <0.46 k/uL [facility] Eosinophils/100 WBC (Bld) 6.5 % [facility] Erythrocyte distribution width (RBC) [Ratio] 16.3 % High 11.5 - 15.0 % [facility] Hematocrit (Bld) [Volume fraction] 36.0 % Low 39.0 - 51.0 % [facility] Hemoglobin (Bld) [Mass/Vol] 12.0 g/dL Low 13.0 - 17.0 g/dL [facility] Immature granulocytes (Bld) [#/Vol] <0.10 k/uL [facility] Immature granulocytes/100 WBC (Bld) 0.2 % [facility] Lymphocytes (Bld) [#/Vol] 1.04 10*3/uL 1.00 - 4.00 k/uL [facility] Lymphocytes/100 WBC (Bld) 23.2 % [facility] MCH (RBC) [Entitic mass] 33.6 pg 26.0 - 34.0 pg [facility] MCHC (RBC) [Mass/Vol] 33.3 g/dL 30.5 - 36.0 g/dL [facility] MCV (RBC) [Entitic vol] 100.8 fL High 80.0 - 100.0 fL [facility] Monocytes (Bld) [#/Vol] 0.80 10*3/uL <0.87 k/uL [facility] Monocytes/100 WBC (Bld) 17.8 % [facility] Neutrophils (Bld) [#/Vol] 2.26 10*3/uL 1.45 - 7.50 k/uL [facility] Neutrophils/100 WBC (Bld) 50.3 % [facility] Nucleated RBC (Bld) [#/Vol] <0.01 k/uL [facility] Nucleated RBC/100 WBC (Bld) [Ratio] 0.0 /100 WBC [facility] Platelet mean volume (Bld) [Entitic vol] 10.1 fL 9.0 - 12.7 fL [facility] Platelets (Bld) [#/Vol] 111 10*3/uL Low 150 - 400 k/uL [facility] RBC (Bld) [#/Vol] 3.57 10*6/uL Low 4.20 - 6.0 0 m/uL [facility] WBC (Bld) [#/Vol] 4.49 10*3/uL 3.70 - 11.00 k/uL [facility] Comprehensive metabolic 2000 panelon 08-08-2022 Albumin [Mass/Vol] 2.9 g/dL Low 3.9 - 4.9 g/dL [facility] ALP [Catalytic activity/Vol] 82 U/L 38 - 113 U/L [facility] ALT [Catalytic activity/Vol] 42 U/L 10 - 54 U/L [facility] Anion gap [Moles/Vol] 6 mmol/L Low 9 - 18 mmol/L [facility] AST [Catalytic activity/Vol] 71 U/L High 14 - 40 U/L [facility] Bilirubin [Mass/Vol] 1.7 mg/dL High 0.2 - 1 .3 mg/dL [facility] Calcium [Mass/Vol] 9.2 mg/dL 8.5 - 10. 2 mg/dL [facility] Chloride [Moles/Vol] 102 mmol/L 97 - 10 5 mmol/L [facility] CO2 [Moles/Vol] 27 mmol/L 22 - 30 mmol/L [facility] Creatinine [Mass/Vol] 1.64 mg/dL High 0.73 - 1.22 mg/dL [facility] Estimated Glomerular Filtration Rate 44 mL/min/1.73m Low >=60 mL/min/1.73 m [facility] Glucose [Mass/Vol] 110 mg/dL High 74 - 99 mg/dL [facility] Potassium [Moles/Vol] 4.8 mmol/L 3.7 - 5.1 mmol/L [facility] Protein [Mass/Vol] 5.3 g/dL Low 6.3 - 8.0 g/dL [facility] Sodium [Moles/Vol] 135 mmol/L Low 136 - 144 mmol/L [facility] Urea nitrogen [Mass/Vol] 33 mg/dL High 9 - 24 mg/dL [facility] CNPNon 08-07-2022 CNPN Telephone ([place]) IANJESUS C ([id number]) 1950 M Date Time Provider Department 08/07/22 LISA BERGER During your visit today, we recorded the following information about you: Allergies As of Date: 08/07/2022 Noted Allergy Reaction [id number] REDUCTASE INHIBIT*07/27/2020 9 - Itching Date Reviewed: 07/27/2022 Reviewed by: Claudia Hartman RN - Fully Assessed Reason for Visit: Appointment [186] Prescriptions as of 08/11/2022 - carvedilol (COREG) 3.125 mg tablet Take 2 tablets by mouth twice daily with meals. - iv contrast (will be provided with radiology test) CT LIVER Inject, intravenously, once for 1 dose.No IV access, insert saline lock prior to the beginning of sedation, infusion, injection of imaging exam. Discontinue saline lock post exam. If Pt. has a central line or IVAD, may access for administration according to line specific nursing protocol. Once exam is complete flush line and de-access according to line specific nursing protocol in the CT contrast administration guidelines link. - fenofibrate nanocrystallized (TRICOR) 48 mg tablet Take 1 tablet by mouth once daily. - furosemide (LASIX) 20 mg tablet TAKE 1 TABLET BY MOUTH EVERY DAY - spironolactone (ALDACTONE) 50 mg tablet TAKE 1 TABLET BY MOUTH EVERY DAY - Cholecalciferol, Vitamin D3, (VITAMIN D-3) 50 mcg (2,000 unit) cap Take 1 capsule by mouth once daily. - acetaminophen (TYLENOL) 325 mg tablet Take 2 tablets by mouth every 4 hours as needed for pain. - alirocumab (PRALUENT PEN) 150 mg/mL Inject 150 mg subcutaneously every 2 weeks. Per cabbage salter.in place of statin - aspirin(ECOTRIN LOW STRENGTH 81 MG TAB) Take one(1) tablet daily. Facility-Administered Medications as of 08/11/2022 - perflutren lipid microspheres 1.3 mL in NaCl (PF) 0.9% 10 mL injection (DEFINITY) Problem List As Of Date 08/07/2022 Noted Resolved MIXED HYPERLIPIDEMIA [E78.2] 07/19/2007 Elevated prostate specific antigen (PSA) [R97.2*07/19/2007 07/31/2017 BPH with obstruction/lower urinary tract sympto*08/24/2008 Osteoarthrosis, unspecified whether generalized*08/24/2008 01/08/2014 Essential hypertension [I10] 04/02/2009 Chronic prostatitis [N41.1] 05/26/2009 07/31/2017 Bladder neck obstruction [N32.0] 05/26/2009 01/08/2014 Impaired fasting glucose [R73.01] 11/03/2010 Abnormal LFTs (liver function tests) [R79.89] 06/27/2013 01/06/2021 Rash [R21] 01/14/2015 04/17/2019 Bladder mass [N32.89] 02/24/2016 07/07/2016 Occult GI bleeding [R19.5] 01/19/2017 07/31/2017 Abnormal result of iron profile testing [R79.0] 07/15/2017 01/11/2022 Stented coronary artery [Z95.5] 07/18/2017 Tubular adenoma of colon [D12.6] 02/08/2017 Hepatic fibrosis (HCC) on elastography [K74.00] 02/09/2018 Coronary arteriosclerosis in [place] artery [I25*02/09/2018 Obesity, Class I, BMI 30-34.9 [E66.9] 02/15/2018 CKD (chronic kidney disease) stage 3, GFR 30-59*11/20/2018 VANESSA (obstructive sleep apnea) [G47.33] 12/25/2019 Umbilical hernia [K42.9] 12/25/2019 Elevated LFTs [R79.89] 02/10/2020 Nonalcoholic fatty liver disease without nonalc*02/10/2020 Vitamin D deficiency [E55.9] 02/10/2020 Portal hypertension with esophageal varices (HC*02/10/2020 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*02/10/2020 BPH associated with nocturia [N40.1, R35.1] 08/08/2021 Diarrhea [R19.7] 03/29/2022 Encounter Status:Closed by LISA BERGER on 08/11/22 [facility] BF MANUAL DIFFon 07-27-2022 Diff Total Body Fluid 100 cells counted [facility] Lymph%, BF 31 % 18 - 36 % [facility] Macro%, BF 37 % Low 64 - 80 % [facility] Meso%, BF 7 % High 0 - 2 % [facility] Isabella%, BF 25 % [facility] BODY FLUID CELL COUNTon 07-12 Clarity (Unsp spec) Clear Clear [facility] Clarity (Unsp spec) Not Indicated [facility] Color (Body fld) Yellow [facility] Color (Body fld) Not Indicated Yellow [facility] RBC Manual cnt (Body fld) [#/Vol] <2,000 /uL [facility] Specimen source Nom (Body fld) ABDOMINAL FLUID. [facility] WBC Manual cnt (Body fld) [#/Vol] 129 /uL <1,000 /uL [facility] US PARACENTESIS (POC) DDI US E ONLYon 07-27-2022 [facility] US CHEST (POC) H23 USE ONLYo n 07-25-[address] [facility] [address] LIVER WO/W IVCONon 2022 [facility] BF MANUAL DIFFon 07-11-2022 DIF TTL, BODY FLUID 100 cells counted [facility] Comment on above: Order Comment: Speci men Type: BODY FLUID SPECIMENOrdering Facility: [facility] Address: [address] [place], [place] [address] Performed By: #### C CBF ####[facility] [id number] [place] [address] [place]#### [id number] ####[facility] LABCLIA [id number] [facility] [place] [place] [address] [place] LYMPH%, BF 48 % High 18-36 [facility] Comment on above: Order Comment: Speci men Type: BODY FLUID SPECIMENOrdering Facility: [facility] Address: [address] [place], [place] [id number] Performed By: #### C CBF ####[facility]ORYCL[facility] [id number] [place] [address] [place]#### [id number] ####[facility] LABCLIA [id number] [place] [address] [place] MACRO%, BF 17 % Low 64-80 [facility] Comment on above: Order Comment: Speci men Type: BODY FLUID SPECIMENOrdering Facility: [facility] Address: [address] [place], [place] [id number] Performed By: #### C CBF ####[facility]ATORYCLIA [id number] [place] [address] [place]#### [id number] ####[facility] LABCLIA [id number] [place] [address] [place] MESO %, BF 9 % High 0-2 [facility] Comment on above: Order Comment: Speci men Type: BODY FLUID SPECIMENOrdering Facility: [facility] Address: [address] [place], [place] [id number] Performed By: #### C CBF ####[facility]ORATORYCLIA [id number] [place] [address] [place]#### [id number] ####[facility] LABCLIA [id number] [address] [place] MONO% BF 22 % Normal [facility] Comment on above: Order Comment: Speci men Type: BODY FLUID SPECIMENOrdering Facility: [facility] Address: [address] [place] [address] Performed By: #### C CBF ####[facility]ORYCLIA [id number] [place] [address] [place]#### [id number] ####[facility] LABCLIA [id number] [place] [address] [place] NEUT%, BF 4 % High 0-1 [facility] Comment on above: Order Comment: Speci men Type: BODY FLUID SPECIMENOrdering Facility: [facility] Address: [address] [place] [address] Performed By: #### C CBF ####[facility]ORATORYCLIA [id number] [place] [address] [place] [facility] [place]#### [id number] ####[facility] LABCLIA [id number] [place] [address] [place] BODY FLUID CELL COUNTon 01-3 Clarity (Unsp spec) Not Indicated Normal Clear [facility] Comment on above: Order Comment: Speci men Type: BODY FLUID SPECIMENOrdering Facility: [facility] Address: [address] [place] [address] Performed By: #### C CBF ####[facility]ORATORYCLIA [id number] [place] [address] [place]#### [id number] ####[facility] LABCLIA [id number] [address] [place] Color (Body fld) Not Indicated Normal Yellow [facility] Comment on above: Order Comment: Speci men Type: BODY FLUID SPECIMENOrdering Facility: [facility] Address: [address] [place], [place] [id number] Performed By: #### C CBF ####[facility]ATORYCLIA [id number] [place] [address] [place]#### [id number] ####[facility] LABCLIA [id number] [place] [address] [place] RBC Manual cnt (Body fld) [#/Vol] <2000 Normal <2000 [facility] Comment on above: Order Comment: Speci men Type: BODY FLUID SPECIMENOrdering Facility: [facility] Address: [address] [place], [place] [id number] Performed By: #### C CBF ####[facility]ORYCLIA [id number] [address]#### [id number] ####[facility] LABCLIA [id number] [address] Specimen source Nom (Body fld) ASCITES FLUID Normal [facility] Comment on above: Order Comment: Speci men Type: BODY FLUID SPECIMENOrdering Facility: [facility] Address: [address] [address] Performed By: #### C CBF ####[facility]ORYCL[facility] [id number] [address]#### [id number] ####[facility] LABCLIA [id number] [address] WBC Manual cnt (Body fld) [#/Vol] 79 /uL Normal <1000 [facility] Comment on above: Order Comment: Speci men Type: BODY FLUID SPECIMENOrdering Facility: [facility] Address: [address] [address] Performed By: #### C CBF ####[facility]ATORYCLIA [id number] [address]#### [id number] ####[facility] LABCLIA [id number] [address] [place] US ASCITES SURVEYon 07-10-19 23 US ASCITES SURVEY * * *Final Report* * * DATE OF EXAM: Jul 10 2022 9:42AM MDU 1016 - US ASCITES SURVEY / PROCEDURE REASON: K74.69-Other cirrhosis of liver (HCC) * * * * Physician Interpretation * * * * HISTORY: Other cirrhosis of liver (HCC) TECHNIQUE: Ultrasound of 4 quadrants of the abdomen and pelvis with permanent recorded images. Pre-procedure Sign-in: Safety Checklist Performed: Yes. The team confirmed the correct patient, correct site, site marking, correct procedure, and correct position. Timeout Time: 900 Sign-out: Communication performed: Yes. 10 mL of 1% lidocaine was infused for local anesthesia. COMPARISON: 06/27/2022 ultrasound RESULT: Ultrasound ascites survey: Images demonstrate mild to moderate generalized ascites. Ultrasound-guided paracentesis: Fluid was tapped on the lower right under ultrasound guidance with a Yueh centesis catheter. 1.4 L of slightly cloudy white to straw-colored fluid was obtained. IMPRESSION: Ascites. Ultrasound-guided paracentesis as detailed. Bulb Grower: RUFINA Transcribe Date/Time: Jul 10 2022 11:20A Dictated by : MARÍA ELENA COOK MD This examination was interpreted and the report reviewed and electronically signed by: MARÍA ELENA COOK MD on Jul 10 2022 11:21AM EST [id number] [facility] US PARACENTESIS BIon 023 US PARACENTESIS BI * * *Final Report* * * DATE OF EXAM: Jul 10 2022 9:42AM CHELE 2038 - US PARACENTESIS BI / PROCEDURE REASON: K74.69-Other cirrhosis of liver (HCC) * * * * Physician Interpretation * * * * HISTORY: Other cirrhosis of liver (HCC) TECHNIQUE: Ultrasound of 4 quadrants of the abdomen and pelvis with permanent recorded images. Pre-procedure Sign-in: Safety Checklist Performed: Yes. The team confirmed the correct patient, correct site, site marking, correct procedure, and correct position. Timeout Time: 900 Sign-out: Communication performed: Yes. 10 mL of 1% lidocaine was infused for local anesthesia. COMPARISON: 06/27/2022 ultrasound RESULT: Ultrasound ascites survey: Images demonstrate mild to moderate generalized ascites. Ultrasound-guided paracentesis: Fluid was tapped on the lower right under ultrasound guidance with a Yueh centesis catheter. 1.4 L of slightly cloudy white to straw-colored fluid was obtained. IMPRESSION: Ascites. Ultrasound-guided paracentesis as detailed. Bulb Grower: PSYCHIATRIC Transcribe Date/Time: Jul 10 2022 11:20A Dictated by : MARÍA ELENA COOK MD This examination was interpreted and the report reviewed and electronically signed by: MARÍA ELENA COOK MD on Jul 10 2022 11:21AM EST [id number] [facility] No Panel Informationon 06-27 [facility] ABD LIVER VASCULARon 06-11 US ABD LIVER VASCULAR * * *Final Report* * * DATE OF EXAM: Jun 27 2022 10:18AM CHELE 1233 - US ABD LIVER VASCULAR / PROCEDURE REASON: multiple diagnoses * * * * Physician Interpretation * * * * EXAMINATION: LIVER VASCULAR ULTRASOUND WITH DOPPLER IMAGING CLINICAL HISTORY: Portal hypertension TECHNIQUE: Sonography of the liver with color and spectral Doppler imaging of the hepatic vasculature was performed. Images were obtained and stored in a permanent archive. MQ: USLV_1 COMPARISON: 11/29/2021. RESULT: Sonographic Findings: Pancreas: Normal sonographic appearance. Portions obscured: tail Liver: Echotexture: Normal, homogeneous. Echogenicity: Normal Surface contour: Lobulated Lesions: None. Biliary: No intrahepatic biliary duct dilation. CBD: 0.5 cm at the hilum. Gallbladder: Cystic wall at 0.5 cm. Partially contracted gallbladder. Small calculi and sludge. Right Kidney: No hydronephrosis. Spleen: Craniocaudal length 13.9 cm, . There are no splenic lesions. Other: Moderate ascites HEPATIC VASCULATURE: PORTAL SYSTEM: -Splenic Vein: Patent with antegrade flow (towards the liver). -Main PV: Echogenic thrombus and no blood flow. No blood flow is detected within the right and left portal veins. Splenorenal shunt: Not visualized Recanalized paraumbilical vein: Visualized HEPATIC ARTERIES: - Main LIGHT: Normal waveform PSV: 101 cm/sec. RI: 0.70 - Right anterior LIGHT: Not visualized - Right posterior LIGHT: Not visualized - Left LIGHT: Normal waveform HEPATIC VEINS: -Left: Patent with triphasic waveform. -Middle: Patent with triphasic waveform. -Right: Patent with triphasic waveform. IVC: Patent with normal, phasic wave form. IMPRESSION: Thrombosis of the main portal vein. No biliary dilatation. Gallstones and sludge. Bulb Grower: PSCB Transcribe Date/Time: Jun 27 2022 10:20A Dictated by : MARÍA ELENA COOK MD This examination was interpreted and the report reviewed and electronically signed by: MARÍA ELENA COOK MD on Jun 27 2022 10:38AM EST [id number] [facility] ABD SPLEEN -NBon 06-27-19 US ABD SPLEEN -NB * * *Final Report* * * DATE OF EXAM: Jun 27 2022 10:18AM U 1232 - US ABD SPLEEN -NB / PROCEDURE REASON: multiple diagnoses * * * * Physician Interpretation * * * * EXAMINATION: LIVER VASCULAR ULTRASOUND WITH DOPPLER IMAGING CLINICAL HISTORY: Portal hypertension TECHNIQUE: Sonography of the liver with color and spectral Doppler imaging of the hepatic vasculature was performed. Images were obtained and stored in a permanent archive. MQ: USLV_1 COMPARISON: 11/29/2021. RESULT: Sonographic Findings: Pancreas: Normal sonographic appearance. Portions obscured: tail Liver: Echotexture: Normal, homogeneous. Echogenicity: Normal Surface contour: Lobulated Lesions: None. Biliary: No intrahepatic biliary duct dilation. CBD: 0.5 cm at the hilum. Gallbladder: Cystic wall at 0.5 cm. Partially contracted gallbladder. Small calculi and sludge. Right Kidney: No hydronephrosis. Spleen: Craniocaudal length 13.9 cm, . There are no splenic lesions. Other: Moderate ascites HEPATIC VASCULATURE: PORTAL SYSTEM: -Splenic Vein: Patent with antegrade flow (towards the liver). -Main PV: Echogenic thrombus and no blood flow. No blood flow is detected within the right and left portal veins. Splenorenal shunt: Not visualized Recanalized paraumbilical vein: Visualized HEPATIC ARTERIES: - Main LIGHT: Normal waveform PSV: 101 cm/sec. RI: 0.70 - Right anterior LIGHT: Not visualized - Right posterior LIGHT: Not visualized - Left LIGHT: Normal waveform HEPATIC VEINS: -Left: Patent with triphasic waveform. -Middle: Patent with triphasic waveform. -Right: Patent with triphasic waveform. IVC: Patent with normal, phasic wave form. IMPRESSION: Thrombosis of the main portal vein. No biliary dilatation. Gallstones and sludge. Bulb Grower: RUFINA Transcribe Date/Time: Jun 27 2022 10:20A Dictated by : MARÍA ELENA COOK MD This examination was interpreted and the report reviewed and electronically signed by: MARÍA ELENA COOK MD on Jun 27 2022 10:38AM EST [id number] [facility] US DOPPLER COMPLETEon 2022 US DOPPLER COMPLETE * * *Final Report* * * DATE OF EXAM: Jun 27 2022 10:18AM U 1033 - US DOPPLER COMPLETE / PROCEDURE REASON: multiple diagnoses * * * * Physician Interpretation * * * * EXAMINATION: LIVER VASCULAR ULTRASOUND WITH DOPPLER IMAGING CLINICAL HISTORY: Portal hypertension TECHNIQUE: Sonography of the liver with color and spectral Doppler imaging of the hepatic vasculature was performed. Images were obtained and stored in a permanent archive. MQ: USLV_1 COMPARISON: 11/29/2021. RESULT: Sonographic Findings: Pancreas: Normal sonographic appearance. Portions obscured: tail Liver: Echotexture: Normal, homogeneous. Echogenicity: Normal Surface contour: Lobulated Lesions: None. Biliary: No intrahepatic biliary duct dilation. CBD: 0.5 cm at the hilum. Gallbladder: Cystic wall at 0.5 cm. Partially contracted gallbladder. Small calculi and sludge. Right Kidney: No hydronephrosis. Spleen: Craniocaudal length 13.9 cm, . There are no splenic lesions. Other: Moderate ascites HEPATIC VASCULATURE: PORTAL SYSTEM: -Splenic Vein: Patent with antegrade flow (towards the liver). -Main PV: Echogenic thrombus and no blood flow. No blood flow is detected within the right and left portal veins. Splenorenal shunt: Not visualized Recanalized paraumbilical vein: Visualized HEPATIC ARTERIES: - Main LIGHT: Normal waveform PSV: 101 cm/sec. RI: 0.70 - Right anterior LIGHT: Not visualized - Right posterior LIGHT: Not visualized - Left LIGHT: Normal waveform HEPATIC VEINS: -Left: Patent with triphasic waveform. -Middle: Patent with triphasic waveform. -Right: Patent with triphasic waveform. IVC: Patent with normal, phasic wave form. IMPRESSION: Thrombosis of the main portal vein. No biliary dilatation. Gallstones and sludge. Bulb Grower: PSYCHIATRIC Transcribe Date/Time: Jun 27 2022 10:20A Dictated by : MARÍA ELENA COOK MD This examination was interpreted and the report reviewed and electronically signed by: MARÍA ELENA COOK MD on Jun 27 2022 10:38AM EST [id number] Normal [facility] HBV surface Ab Ql (S)on 06-11 HBV surface Ab Qn (S) Low >=12.00 mIU/mL [facility] HEP B SURF ABon 06-24-2022 HBV surface Ab Ql (S) Negative Abnormal Positive [facility] CBC W Auto Differential pane l (Bld)on 06-23-2022 Basophils (Bld) [#/Vol] 0.12 10*3/uL High <0.11 k/uL [facility] Basophils/100 WBC (Bld) 1.7 % [facility] Differential cell count method Nom (Bld) Auto [facility] Eosinophils (Bld) [#/Vol] 0.28 10*3/uL <0.46 k/uL [facility] Eosinophils/100 WBC (Bld) 3.9 % [facility] Erythrocyte distribution width (RBC) [Ratio] 16.0 % High 11.5 - 15.0 % [facility] Hematocrit (Bld) [Volume fraction] 39.0 % 39.0 - 51.0 % [facility] Hemoglobin (Bld) [Mass/Vol] 13.4 g/dL 13.0 - 17.0 g/dL [facility] Immature granulocytes (Bld) [#/Vol] <0.10 k/uL [facility] Immature granulocytes/100 WBC (Bld) 0.1 % [facility] Lymphocytes (Bld) [#/Vol] 1.65 10*3/uL 1.00 - 4.00 k/uL [facility] Lymphocytes/100 WBC (Bld) 22.8 % [facility] MCH (RBC) [Entitic mass] 33.7 pg 26.0 - 34.0 pg [facility] MCHC (RBC) [Mass/Vol] 34.4 g/dL 30.5 - 36.0 g/dL [facility] MCV (RBC) [Entitic vol] 98.0 fL 80.0 - 100.0 fL [facility] Monocytes (Bld) [#/Vol] 1.10 10*3/uL High <0.87 k/uL [facility] Monocytes/100 WBC (Bld) 15.2 % [facility] Neutrophils (Bld) [#/Vol] 4.08 10*3/uL 1.45 - 7.50 k/uL [facility] Neutrophils/100 WBC (Bld) 56.3 % [facility] Nucleated RBC (Bld) [#/Vol] <0.01 k/uL [facility] Nucleated RBC/100 WBC (Bld) [Ratio] 0.0 /100 WBC [facility] Platelet mean volume (Bld) [Entitic vol] 9.5 fL 9.0 - 12.7 fL [facility] Platelets (Bld) [#/Vol] 176 10*3/uL 150 - 400 k/uL [facility] RBC (Bld) [#/Vol] 3.98 10*6/uL Low 4.20 - 6.0 0 m/uL [facility] WBC (Bld) [#/Vol] 7.24 10*3/uL 3.70 - 11.00 k/uL [facility] PT panel Coag (PPP)on 2022 INR Coag (PPP) [Relative time] 1.2 {INR} 0.9 - 1.3 [facility] PT Coag (PPP) [Time] 11.6 s <13.1 sec [facility] ECHO WITH AGITATED SALINE CO NTRASTon 06-19-2022 [facility] LVEF ECHO WITH AGITATED SALI NE CONTRASTon 06-19-2022 LV Ejection Fraction 61 % [facility] CNPNon 06-15-2022 CNPN Telephone ([place]) JESUS SOSA ([id number]) 1950 M Date Time Provider Department 06/15/22 CAITY ERNST ([facility]) [place] During your visit today, we recorded the following information about you: Caity Ernst 06/15/2022 8:49 AM Signed Left VM for patient to get him scheduled for paracentesis. Left my direct number for him to call back [phone]. Allergies As of Date: 06/15/2022 Noted Allergy Reaction OFEGLYC-MNN-CIZ REDUCTASE INHIBIT*07/27/2020 9 - Itching Date Reviewed: 06/14/2022 Reviewed by: Lisa Berger, THIAGO - Fully Assessed Reason for Visit: Scheduling [9131] Prescriptions as of 05/02/2023 - NIFEdipine ER (PROCARDIA XL) 30 mg 24 hr tablet Take 1 tablet by mouth once daily. - ergocalciferol 50,000 unit capsule (VITAMIN D2, DRISDOL) Take 1 capsule by mouth one time a week for 12 doses. - lactobacillus rhamnosus (CULTURELLE) 10 billion cell capsule Take 1 capsule by mouth once daily. - mycophenolate mofetil (CELLCEPT) 250 mg capsule Take 2 capsules by mouth two times a day. - aspirin 81 mg chewable tablet Chew and swallow 1 tablet by mouth once daily. - acyclovir (ZOVIRAX) 400 mg tablet Take 1 tablet by mouth two times a day. - pantoprazole DR (PROTONIX) 40 mg tablet Take 1 tablet by mouth once daily. - sulfamethoxazole-trimethopri m (BACTRIM DS) 800-160 mg per tablet Take 1 tablet by mouth every Sunday, Sunday, and Sunday. - tacrolimus IR (PROGRAF) 1 mg capsule Take 4 capsules by mouth two times a day. - predniSONE (DELTASONE) 5 mg tablet Take 4 tablets by mouth once daily on 04/08-04/09, then take 3 tabs daily on 04/10-04/13, then take 2 tabs daily on 04/14-04/17, then take 1 tab daily on 04/18-04/21/23 Problem List As Of Date 06/15/2022 Noted Resolved MIXED HYPERLIPIDEMIA [E78.2] 07/19/2007 Elevated prostate specific antigen (PSA) [R97.2*07/19/2007 07/31/2017 BPH with obstruction/lower urinary tract sympto*08/24/2008 Osteoarthrosis, unspecified whether generalized*08/24/2008 01/08/2014 Essential hypertension [I10] 04/02/2009 Chronic prostatitis [N41.1] 05/26/2009 07/31/2017 Bladder neck obstruction [N32.0] 05/26/2009 01/08/2014 Impaired fasting glucose [R73.01] 11/03/2010 Abnormal LFTs (liver function tests) [R79.89] 06/27/2013 01/06/2021 Rash [R21] 01/14/2015 04/17/2019 Bladder mass [N32.89] 02/24/2016 07/07/2016 Occult GI bleeding [R19.5] 01/19/2017 07/31/2017 Abnormal result of iron profile testing [R79.0] 07/15/2017 01/11/2022 Stented coronary artery [Z95.5] 07/18/2017 Tubular adenoma of colon [D12.6] 02/08/2017 Hepatic fibrosis (HCC) on elastography [K74.00] 02/09/2018 Coronary arteriosclerosis in [place] artery [I25*02/09/2018 Obesity, Class I, BMI 30-34.9 [E66.9] 02/15/2018 CKD (chronic kidney disease) stage 3, GFR 30-59*11/20/2018 VANESSA (obstructive sleep apnea) [G47.33] 12/25/2019 Umbilical hernia [K42.9] 12/25/2019 Elevated LFTs [R79.89] 02/10/2020 Nonalcoholic fatty liver disease without nonalc*02/10/2020 Vitamin D deficiency [E55.9] 02/10/2020 Portal hypertension with esophageal varices (HC*02/10/2020 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*02/10/2020 BPH associated with nocturia [N40.1, R35.1] 08/08/2021 Diarrhea [R19.7] 03/29/2022 Encounter Status:Closed [facility] HNO [facility] [id number] Author: RT Joel(Mejia) Service: Radiology Author Type: Technologist Type: Allied Health Filed: 06/14/2022 4:36 PM Note Text: Radiology Service Progress Note PATIENT NAME: Jesus Sosa DATE OF SERVICE: June 14, 2022 TIME: 4:36 PM PATIENT IDENTITY VERIFICATION COMPLETED USING TWO (2) IDENTIFIERS: Name and Date of confirmed by patient verbally and Name and Date of confirmed by identification band. FALL SCREENING: Has the patient had 2 falls in the last year or 1 fall with injury or currently using an Ambulatory Assistive Device (Walker, Cane, Wheelchair, Crutches, etc.)? Emergency Room Patient: Screened in ED PATIENT GENDER DATA: Male PATIENT RELEVANT IMPLANT DATA REVIEWED: Not Applicable RADIOLOGY DEPARTMENT: General X-ray: Exam(s) Completed: Chest X-Ray PERIPHERAL IV DATA: Not applicable SIGNED BY: RT Joel(R) June 14, 2022 4:36 PM [facility] HNO ID: [id number] Author: CLARY Carrillo Service: Radiology Author Type: Technologist Type: Allied Health Filed: 06/14/2022 3:03 PM Note Text: Radiology Service Progress Note PATIENT NAME: Jesus Sosa DATE OF SERVICE: June 14, 2022 TIME: 3:03 PM PATIENT IDENTITY VERIFICATION COMPLETED USING TWO (2) IDENTIFIERS: Name and Date of confirmed by patient verbally. FALL SCREENING: Has the patient had 2 falls in the last year or 1 fall with injury or currently using an Ambulatory Assistive Device (Walker, Cane, Wheelchair, Crutches, etc.)? Emergency Room Patient: Screened in ED PATIENT GENDER DATA: Male PATIENT RELEVANT IMPLANT DATA REVIEWED: Not Applicable RADIOLOGY DEPARTMENT: General X-ray: Exam(s) Completed: Chest X-Ray PERIPHERAL IV DATA: Not applicable SIGNED BY: CLARY Carrillo June 14, 2022 3:03 PM [facility] BRIEF OP NOTon 06-14-2022 BRIEF OP NOT HNO ID: [id number] Author: Thom Dobbins APRN.CNP Service: Interventional Radiology Author Type: Nurse Practitioner Type: Brief Op Note Filed: 06/14/2022 1:49 PM Note Text: BRIEF OP NOTE LOG ID: [id number] Surgery/Procedure Date: 06/14/2022 Surgeon(s)/Proceduralist(s) and Analyst Programmer(s): Thom Dobbins APRN.CNP Procedure(s): paracentesis Anesthesia: local 5 ml lidocaine Findings: 3000 ml clear yellow fluid Estimated Blood Loss: <3 ml Specimens: No Complications: none Pre-Op/Pre-Procedure Diagnosis: ascites Post-Op/Post-Procedure Diagnosis: same SIGNATURE: Thom Dobbins APRN.CNP PATIENT NAME: Jesus Sosa DATE: June 14, 2022 TIME: 1:49 PM PAGER/CONTACT #: [phone] [facility] BRIEF OP NOT HNO ID: [id number] Author: Thom Dobbins APRN.CNP Service: Interventional Radiology Author Type: Nurse Practitioner Type: Brief Op Note Filed: 06/14/2022 3:38 PM Note Text: BRIEF OP NOTE LOG ID: [id number] Surgery/Procedure Date: 06/14/2022 Surgeon(s)/Proceduralist(s) and Analyst Programmer(s): Thom Dobbins APRN.CNP Procedure(s): right thoracentesis Anesthesia: local 5 ml lidocaine Findings: 2000 ml clear yellow fluid Estimated Blood Loss: <3 ml Specimens: No Complications: none Pre-Op/Pre-Procedure Diagnosis: pleural effusion Post-Op/Post-Procedure Diagnosis: same SIGNATURE: Thom Dobbins APRN.CNP PATIENT NAME: Jesus Sosa DATE: June 14, 2022 TIME: 3:38 PM PAGER/CONTACT #: [phone] Normal [facility] Basic metabolic 2000 panelon 06-14-2022 Anion gap [Moles/Vol] 5 mmol/L Low 9-18 [facility] Comment on above: Order Comment: Speci men Type: BLOOD SPECIMENOrdering Facility: [facility] Address: [address] [place] [address] Performed By: #### 1 9123-9, 3040-3, 74846-0, 46301-6 ####[facility]ORY[facility] [id number] [place] [address] [place] Calcium [Mass/Vol] 9.1 mg/dL Normal 8.5-10.2 [facility] Comment on above: Order Comment: Speci men Type: BLOOD SPECIMENOrdering Facility: [facility] Address: [address] [place] [address] Performed By: #### 1 9123-9, 3040-3, 08551-2, 67856-5 ####[facility]ORATORYCLIA [id number] [place] [address] [place] Chloride [Moles/Vol] 102 mmol/L Normal 97-105 [facility] Comment on above: Order Comment: Speci men Type: BLOOD SPECIMENOrdering Facility: [facility] Address: [address] [place] [address] Performed By: #### 1 9123-9, 3040-3, 02214-3, 93060-5 ####[facility]ORYCLIA [id number] [place] [address] [place] CO2 [Moles/Vol] 29 mmol/L Normal 22-30 [facility] Comment on above: Order Comment: Speci men Type: BLOOD SPECIMENOrdering Facility: [facility] Address: [place] [address] Performed By: #### 1 9123-9, 3040-3, 54757-8, 10873-4 ####[facility]ORYCL[facility] [id number] [address] [place] Creatinine [Mass/Vol] 1.17 mg/dL Normal 0.73-1.22 [facility] Comment on above: Order Comment: Specjessica men Type: BLOOD SPECIMENOrdering Facility: [facility] Address: [place] [address] Performed By: #### 1 9123-9, 3040-3, 83305-5, 73324-7 ####[facility]ORATORYCLIA [id number] [address] [place] ESTIMATED GLOMERULAR FILTRATION RATE 66 mL/min/1.73m??? Normal >=60 [facility] Comment on above: Order Comment: Salas men Type: BLOOD SPECIMENOrdering Facility: [facility] Address: [place] [address] Result Comment: Melody mated Glomerular Filtration Rate (eGFR) is calculated using the 2020 CKD-EPI creatinine equation. This equation utilizes serum creatinine, sex, and age as parameters. The creatinine assay has traceable calibration to isotope dilution-mass spectrometry. Refer to KDIGO guidelines for clinical interpretation. In patients with unstable renal function, e.g. those with acute kidney injury, the eGFR may not accurately reflect actual GFR. Performed By: #### 1 9123-9, 3040-3, 99531-8, 64014-2 ####[facility]ORATORYCLIA [id number] [address] [place] Glucose [Mass/Vol] 86 mg/dL Normal 74-99 [facility] Comment on above: Order Comment: Salas men Type: BLOOD SPECIMENOrdering Facility: [facility] Address: [place] [address] Result Comment: The [place] Diabetes Association (ADA) provides guidance for cutoff values for fasting glucose and random glucose. The ADA defines fasting as no caloric intake for at least 8 hours. Fasting plasma glucose results between 100 to 125 mg/dL indicate increased risk for diabetes (prediabetes). Fasting plasma glucose results greater than or equal to 126 mg/dL meet the criteria for diagnosis of diabetes. In the absence of unequivocal hyperglycemia, results should be confirmed by repeat testing. In a patient with classic symptoms of hyperglycemia or hyperglycemic crisis, random plasma glucose results greater than or equal to 200 mg/dL meet the criteria for diagnosis of diabetes. Reference: Standards of Medical Care in Diabetes 2016, [place] Diabetes Association. Diabetes Care. 2016.39(Suppl 1). Performed By: #### 1 9123-9, 3040-3, 22231-0, 04150-4 ####[facility] LABORATORYCLIA [id number] [place] [address] [place] Potassium [Moles/Vol] 4.8 mmol/L Normal 3.7-5.1 [facility] Comment on above: Order Comment: Salas nichole Type: BLOOD SPECIMENOrdering Facility: [facility] Address: [address] [place] [address] Performed By: #### 1 9123-9, 3040-3, 04345-4, 70079-3 ####[facility]ORATORYCLIA [id number] [place] [address] [place] Sodium [Moles/Vol] 136 mmol/L Normal 136-144 [facility] Comment on above: Order Comment: Salas nichole Type: BLOOD SPECIMENOrdering Facility: [facility] Address: [address] [place] [address] Performed By: #### 1 9123-9, 3040-3, 83958-4, 62664-5 ####[facility]ORATORYCLIA [id number] [place] [id number] [place] Urea nitrogen [Mass/Vol] 24 mg/dL Normal 9-24 [facility] Comment on above: Order Comment: Salas nichole Type: BLOOD SPECIMENOrdering Facility: [facility] Address: [address] [place] [address] Performed By: #### 1 9123-9, 3040-3, 88558-9, 33402-8 ####[facility]ORATORYCLIA [id number] [place] [id number] [place] CBC W Auto Differential pane l (Bld)on 06-14-2022 Basophils (Bld) [#/Vol] 0.05 10*3/uL Normal <0.11 [facility] Comment on above: Order Comment: Speci men Type: BLOOD SPECIMENOrdering Facility: [facility] Address: [address] [place] [address] Performed By: #### 5 7021-8 ####[facility]ORATORYCLIA [id number] [place] [address] [place] Basophils/100 WBC (Bld) 0.9 % Normal [facility] Comment on above: Order Comment: Speci men Type: BLOOD SPECIMENOrdering Facility: [facility] Address: [address] [place] [address] Performed By: #### 5 7021-8 ####[facility]ORATORYCLIA [id number] [address] STATES OF [facility] Differential cell count method Nom (Bld) Auto Normal [facility] Comment on above: Order Comment: Speci men Type: BLOOD SPECIMENOrdering Facility: [facility] Address: [address] [place] [address] Performed By: #### 5 7021-8 ####[facility]ORATORYCLIA [id number] [place] [address] [place] Eosinophils (Bld) [#/Vol] 0.22 10*3/uL Normal <0.46 [facility] Comment on above: Order Comment: Speci men Type: BLOOD SPECIMENOrdering Facility: [facility] Address: [address] [place] [address] Performed By: #### 5 7021-8 ####[facility]ATORYCLIA [id number] [address] [place] Eosinophils/100 WBC (Bld) 3.9 % Normal [facility] Comment on above: Order Comment: Speci men Type: BLOOD SPECIMENOrdering Facility: [facility] Address: [address] [place] [address] Performed By: #### 5 7021-8 ####[facility]ORATORYCLIA [id number] [place] [address] [place] Erythrocyte distribution width (RBC) [Ratio] 16.1 % High 11.5-15.0 [facility] Comment on above: Order Comment: Speci men Type: BLOOD SPECIMENOrdering Facility: [facility] Address: [address] [place] [address] Performed By: #### 5 7021-8 ####[facility]ORATORYCLIA [id number] [place] [address] [place] Hematocrit (Bld) [Volume fraction] 38.3 % Low 39.0-51.0 [facility] Comment on above: Order Comment: Speci men Type: BLOOD SPECIMENOrdering Facility: [facility] Address: [address] [place] [address] Performed By: #### 5 7021-8 ####[facility]ORATORYCLIA [id number] [place] [address] [place] Hemoglobin (Bld) [Mass/Vol] 12.8 g/dL Low 13.0-17.0 [facility] Comment on above: Order Comment: Speci men Type: BLOOD SPECIMENOrdering Facility: [facility] Address: [address] [place] [address] Performed By: #### 5 7021-8 ####[facility]ORATORYCLIA [id number] [place] [address] [place] Immature granulocytes (Bld) [#/Vol] 10*3/uL Normal <0.10 [facility] Comment on above: Order Comment: Speci men Type: BLOOD SPECIMENOrdering Facility: [facility] Address: [address] [place] [address] Performed By: #### 5 7021-8 ####[facility]ORATORYCLIA [id number] [address] [place] Immature granulocytes/100 WBC (Bld) 0.2 % Normal [facility] Comment on above: Order Comment: Speci men Type: BLOOD SPECIMENOrdering Facility: [facility] Address: [address] [place] [address] Performed By: #### 5 7021-8 ####[facility]ORATORYCLIA [id number] [address] Lymphocytes (Bld) [#/Vol] 1.34 10*3/uL Normal 1.00-4.00 [facility] Comment on above: Order Comment: Speci men Type: BLOOD SPECIMENOrdering Facility: [facility] Address: [address] [place] [address] Performed By: #### 5 7021-8 ####[facility]ATORYCLIA [id number] [address] Lymphocytes/100 WBC (Bld) 23.9 % Normal [facility] Comment on above: Order Comment: Speci men Type: BLOOD SPECIMENOrdering Facility: [facility] Address: [address] [place] [address] Performed By: #### 5 7021-8 ####[facility]ATORYCLIA [id number] [address] MCH (RBC) [Entitic mass] 34.0 pg Normal 26.0-34.0 [facility] Comment on above: Order Comment: Speci men Type: BLOOD SPECIMENOrdering Facility: [facility] Address: [address] [place] [address] Performed By: #### 5 7021-8 ####[facility]ORATORYCLIA [id number] [address] MCHC (RBC) [Mass/Vol] 33.4 g/dL Normal 30.5-36.0 [facility] Comment on above: Order Comment: Speci men Type: BLOOD SPECIMENOrdering Facility: [facility] Address: [address] [place] [address] Performed By: #### 5 7021-8 ####[facility]ORATORYCLIA [id number] [address] MCV (RBC) [Entitic vol] 101.6 fL High 80.0-100.0 [facility] Comment on above: Order Comment: Speci men Type: BLOOD SPECIMENOrdering Facility: [facility] Address: [address] [place] [address] Performed By: #### 5 7021-8 ####[facility]ORATORYCLIA [id number] [place] [address] [place] Monocytes (Bld) [#/Vol] 0.77 10*3/uL Normal <0.87 [facility] Comment on above: Order Comment: Speci men Type: BLOOD SPECIMENOrdering Facility: [facility] Address: [address] [place] [address] Performed By: #### 5 7021-8 ####[facility]ORATORYCLIA [id number] [address] [place] Monocytes/100 WBC (Bld) 13.8 % Normal [facility] Comment on above: Order Comment: Speci men Type: BLOOD SPECIMENOrdering Facility: [facility] Address: [address] [place] [address] Performed By: #### 5 7021-8 ####[facility]ATORYCLIA [id number] [address] [place] Neutrophils (Bld) [#/Vol] 3.21 10*3/uL Normal 1.45-7.50 [facility] Comment on above: Order Comment: Speci men Type: BLOOD SPECIMENOrdering Facility: [facility] Address: [address] [place] [address] Performed By: #### 5 7021-8 ####[facility]ATORYCLIA [id number] [address] [place] Neutrophils/100 WBC (Bld) 57.3 % Normal [facility] Comment on above: Order Comment: Speci men Type: BLOOD SPECIMENOrdering Facility: [facility] Address: [address] [place] [address] Performed By: #### 5 7021-8 ####[facility]ATORYCLIA [id number] [place] [address] [place] Nucleated RBC (Bld) [#/Vol] 10*3/uL Normal <0.01 [facility] Comment on above: Order Comment: Speci men Type: BLOOD SPECIMENOrdering Facility: [facility] Address: [address] [place] [address] Performed By: #### 5 7021-8 ####[facility]ATORYCLIA [id number] [address] [place] Nucleated RBC/100 WBC (Bld) [Ratio] 0.0 /100 WBC Normal [facility] Comment on above: Order Comment: Speci men Type: BLOOD SPECIMENOrdering Facility: [facility] Address: [address] [place] [address] Performed By: #### 5 7021-8 ####[facility]ATORYCLIA [id number] [address] [place] Platelet mean volume (Bld) [Entitic vol] 9.7 fL Normal 9.0-12.7 [facility] Comment on above: Order Comment: Speci men Type: BLOOD SPECIMENOrdering Facility: [facility] Address: [address] [place] [address] Performed By: #### 5 7021-8 ####[facility]ATORYCLIA [id number] [address] Platelets (Bld) [#/Vol] 127 10*3/uL Low 150-400 [facility] Comment on above: Order Comment: Speci men Type: BLOOD SPECIMENOrdering Facility: [facility] Address: [address] [place] [address] Performed By: #### 5 7021-8 ####[facility]ATORYCLIA [id number] [address] [place] RBC (Bld) [#/Vol] 3.77 10*6/uL Low 4.20-6.00 [facility] Comment on above: Order Comment: Speci men Type: BLOOD SPECIMENOrdering Facility: [facility] Address: [address] [place] [address] Performed By: #### 5 7021-8 ####[facility]ORATORYCLIA [id number] [address] WBC (Bld) [#/Vol] 5.60 10*3/uL Normal 3.70-11.00 [facility] Comment on above: Order Comment: Speci men Type: BLOOD SPECIMENOrdering Facility: [facility] Address: [place] [address] Performed By: #### 5 7021-8 ####[facility] LABORATORYCLIA [id number] [place] [address] [facility] ED NOTEon 06-14-2022 ED NOTE HNO ID: [id number] Author: Jocelyne Chan RN Service: Nursing Author Type: Registered Nurse Type: ED Notes Filed: 06/14/2022 5:29 PM Note Text: Pt discharged from the facility at this time in satisfactory condition. Pt peripheral IV removed prior to discharge. Pt educated on how to schedule follow up appt with PCP. This nurse reviewed entire discharge packet with Pt including: medications, side effects, s/s to report to MD. Pt verbalized understanding. Pt has a ride home with . Pt left with all personal belongings exiting the facility. [facility] [facility] ED NOTE HNO ID: [id number] Author: Jocelyne Chan RN Service: ? Author Type: Registered Nurse Type: ED Notes Filed: 06/14/2022 3:53 PM Note Text: Bed: ED-19 Expected date: 06/14/22 Expected time: Means of arrival: Comments: Pt in room/ procedure. [facility] ED NOTE HNO ID: [id number] Author: Jocelyne Chan RN Service: Nursing Author Type: Registered Nurse Type: ED Notes Filed: 06/14/2022 3:56 PM Note Text: IR nurse report as follows: Right thoracentesis removed 2L. Pt is now on 5L NC 94-96%. Pt has post procedure XRAY ordered. [facility] ED NOTE HNO ID: [id number] Author: Sid Singletary RN Service: ? Author Type: Registered Nurse Type: ED Notes Filed: 06/14/2022 2:57 PM Note Text: Bed: ED-19 Expected date: Expected time: Means of arrival: Comments: Pt Ian [facility] ED PROV NOTEon 06-14-2022 ED PROV NOTE HNO ID: [id number] Author: Nael Palmer MD Service: ? Author Type: Physician Type: ED Provider Notes Filed: 06/14/2022 4:53 PM Note Text: ED Provider Note Patient Name: Jesus Sosa : 1950 SERVICE DATE: 06/14/22 History Patient presents with: Shortness of Breath HPI Patient presents with dyspnea, this has been chronic, however he was getting paracentesis and was noticed to be somewhat hypoxic. He also has a pleural effusion. After 3 L of fluid from the paracentesis he still felt the same and his pulse ox was the same. He has no fevers or chills. He has no cough or congestion. 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 Kelby Suarez. GI - History of colonic polyps - Impaired fasting glucose 11/03/2010 - Kidney disease - 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) 02/10/2020 - Mixed hyperlipidemia 07/19/2007 - Nonalcoholic fatty liver disease without nonalcoholic steatohepatitis (DURANT) 02/10/2020 - Obesity, Class I, BMI 30-34.9 02/15/2018 - VANESSA (obstructive sleep apnea) CPAP - Osteoarthrosis, unspecified whether generalized or localized, other specified sites 08/24/2008 Hands, digits. - PMH - PAST MEDICAL HISTORY OF 1998 shingles without rash - RBBB (right bundle branch block) 03/30/2009 - Snoring - Stented coronary artery 07/18/2017 MICHELLE to diagonal and mid LAD. - Tubular adenoma of colon 02/08/2017 - Umbilical hernia 01/08/2014 - Unspecified essential hypertension 04/02/2009 PAST SURGICAL HISTORY Procedure Laterality Date - CC CORONARY STENT 07/18/2017 MICHELLE x 2 to mild LAD and diagonal - COLONOSCOPY FLX DX W/COLLJ SPEC WHEN PFRMD 02/08/2017 Colonoscopy - COLONOSCOPY FLX DX W/COLLJ SPEC WHEN PFRMD 01/07/2020 Colonoscopy - CYSTOSCOPY 10/12/2020 - EGD 02/01/2021 - EGD 01/05/2022 - ESOPHAGOGASTRODUODENOSCOPY TRANSORAL DIAGNOSTIC 01/07/2020 EGD - PARACENTESIS - PROSTATE NEEDLE BIOPSY 05/19/2009 - PROSTATE NEEDLE BIOPSY 01/02/2013 - PROSTATECTOMY SUPRAPUBIC SUBTOTAL 1/2 STAGES 08/08/2021 + Umbilical hernia repair - REMV CATARACT EXTRACAP,INSERT LENS 10/18/2020 10/04/20, 10/18/20 FAMILY HISTORY Problem Relation Age of Onset - Arthritis Mother - Heart Mother Pacemaker - Stroke Mother w/ bowel obstruction - Cancer Mother skin - Heart Father Pacemaker - Cancer Father skin - Lipids Brother - Lipids Brother Social History Tobacco Use - Smoking status: Former Types: Cigars - Smokeless tobacco: Never - Tobacco comments: Last cigar 07/17/2017 Substance and Sexual Activity - Alcohol use: Yes Alcohol/week: 5.0 standard drinks Types: 1 Glasses of Wine (5oz), 1 Mixed Drinks per week Comment: one drink or shot once weekly occassional glass of wine - Drug use: No - Sexual activity: Yes Partners: Female ALLERGIES Allergen Reactions - Tkwxcsg-Fnc-Jjz Red* Itching Review of Systems Constitutional: Negative for activity change and fever. HENT: Negative for congestion. Eyes: Negative for visual disturbance. Respiratory: Dyspnea as in HPI Cardiovascular: Negative for chest pain. Gastrointestinal: Abdominal swelling has improved since the paracentesis. Endocrine: Negative for polyuria. Genitourinary: Negative for difficulty urinating, dysuria and flank pain. Musculoskeletal: Negative for back pain. Neurological: Negative for any focal weakness or dizziness. Physical Exam Vitals [06/14/22 1417] BP Pulse Temp Temp src Resp SpO2 Weight Height 122/50 59 36.6 ?C (97.8 ?F) Oral 24 95 % 87.6 kg (193 lb 1.6 oz) -- Physical Exam Constitutional: Patient appears relatively comfortable. Head: Normocephalic and atraumatic. ENT: No congestion. Moist membranes. Neck: Normal range of motion. Cardiovascular: Normal rate and regular rhythm. Pulmonary/Chest: diminished breath sounds on the right otherwise coarse breath sounds bilaterally. Abdominal: Soft, no tenderness very slight distention. Musculoskeletal: Normal range of motion. No edema. Neurological: Patient is alert. No sensory deficit. Normal muscle tone. Skin: Skin is warm. No rash noted. No erythema. Psychiatric: Normal mood and affect. Diagnostic Testing ED Labs Ordered and Reviewed - No data to display Procedures ED Course / Clinical Impression Patient was hypoxic however it is likely that he is chronically hypoxic. He has a significant right pleural effu (more content not included)... Normal [facility] Hepatic function 2000 panelo n 06-14-2022 Albumin [Mass/Vol] 3.1 g/dL Low 3.9-4.9 [facility] Comment on above: Order Comment: Salas nichole Type: BLOOD SPECIMENOrdering Facility: [facility] Address: [address] [address] Performed By: #### 1 9123-9, 3040-3, 59530-6, 81614-8 ####[facility]ORATORYCLIA [id number] [address] OF [facility] ALP [Catalytic activity/Vol] 115 U/L High 38-113 [facility] Comment on above: Order Comment: Salas nichole Type: BLOOD SPECIMENOrdering Facility: [facility] Address: [address] [address] Performed By: #### 1 9123-9, 3040-3, 48050-6, 38746-8 ####[facility]ORATORYCLIA [id number] [address] ALT [Catalytic activity/Vol] 60 U/L High 10-54 [facility] Comment on above: Order Comment: Nellyi men Type: BLOOD SPECIMENOrdering Facility: [facility] Address: [address] [address] Performed By: #### 1 9123-9, 3040-3, 47353-8, 83663-5 ####[place] [facility]ORATORYCLIA [id number] [address] AST [Catalytic activity/Vol] 110 U/L High 14-40 [facility] Comment on above: Order Comment: Salas nichole Type: BLOOD SPECIMENOrdering Facility: [facility] Address: [address] [address] Performed By: #### 1 9123-9, 3040-3, 59809-4, 15057-5 ####[facility]ORATORYCLIA [id number] [place] [address] [place] Bilirubin [Mass/Vol] 2.7 mg/dL High 0.2-1.3 [facility] Comment on above: Order Comment: Speci men Type: BLOOD SPECIMENOrdering Facility: [facility] Address: [address] [place] [address] Performed By: #### 1 9123-9, 3040-3, 46968-8, 09542-3 ####[facility]ORATORYCLIA [id number] [address] [place] Bilirubin.conjugated [Mass/Vol] 0.9 mg/dL High <0.2 [facility] Comment on above: Order Comment: Speci men Type: BLOOD SPECIMENOrdering Facility: [facility] Address: [address] [place] [address] Performed By: #### 1 9123-9, 3040-3, 34699-6, 15189-4 ####[facility]ORATORYCLIA [id number] [address] [place] Protein [Mass/Vol] 5.8 g/dL Low 6.3-8.0 [facility] Comment on above: Order Comment: Speci men Type: BLOOD SPECIMENOrdering Facility: [facility] Address: [address] [place] [address] Performed By: #### 1 9123-9, 3040-3, 08373-1, 75635-1 ####[facility] LABORATORYCLIA [id number] [place] [address] [place] Lipase SerPl-cCncon 06-14-19 23 Lipase [Catalytic activity/Vol] 139 U/L High 16-61 [facility] Comment on above: Order Comment: Speci men Type: BLOOD SPECIMENOrdering Facility: [facility] Address: [address] [place] [address] Performed By: #### 1 9123-9, 3040-3, 63704-1, 70757-8 ####[facility] LABORATORYCLIA [id number] [place] [address] [facility] [place] Magnesium [facility]-ncon 06-14 Magnesium [Mass/Vol] 2.0 mg/dL Normal 1.7-2.3 [facility] Comment on above: Order Comment: Speci men Type: BLOOD SPECIMENOrdering Facility: [facility] Address: [address] [place] [address] Performed By: #### 1 9123-9, 3040-3, 64101-5, 38167-1 ####[facility]ORATORYCLIA [id number] [place] [address] [place] NT-proBNP [facility] Natriuretic peptide.B prohormone N-Terminal [Mass/Vol] 533 pg/mL High <125 [facility] Comment on above: Order Comment: Speci men Type: BLOOD SPECIMENOrdering Facility: [facility] Address: [address] [place] [address] Performed By: #### 3 3762-6 ####[facility]ORATORYCLIA [id number] [place] [address] [place] NURSING PROGon 06-14-2022 NURSING PROG HNO ID: [id number] Author: Lisa Berger RN Service: Nursing Author Type: Registered Nurse Type: Nursing Progress Note Filed: 06/14/2022 2:18 PM Note Text: Pt requiring 6L NC upon arrival from ASCU. VS otherwise stable and pt in no distress. After fluid drain and position change pt continued to require O2 and unable to return to ASCU or PACU. Thom COX spoke with ED dr with plan to transfer to their care. Bedside handoff given to ED RN Normal [facility] ASCITES SURVEYon 06-14-19 US ASCITES SURVEY * * *Final Report* * * DATE OF EXAM: Jun 14 2022 1:58PM [facility] 1016 - US ASCITES SURVEY / PROCEDURE REASON: K74.69-Other cirrhosis of liver (HCC) * * * * Physician Interpretation * * * * PROCEDURE: US ASCITES SURVEY INDICATION: K74.69-Other cirrhosis of liver (HCC) TECHNIQUE: Multiple sonographic images of the abdomen/pelvis were obtained and stored in a permanent archive. Findings/ IMPRESSION: Large volume ascites in all 4 quadrants Bulb Grower: PSYCHIATRIC Transcribe Date/Time: Jun 14 2022 2:11P Dictated by : PILY HENDRICKS MD This examination was interpreted and the report reviewed and electronically signed by: PILY HENDRICKS MD on Jun 14 2022 2:11PM EST [id number] [facility] US CHEST EFFUSION SURVEYon 0 06-14-2022 US CHEST EFFUSION SURVEY * * *Final Report* * * DATE OF EXAM: Jun 14 2022 3:54PM [facility] [place] CHEST EFFUSION SURVE[place] / PROCEDURE REASON: Pleural effusion, malignancy suspected * * * * Physician Interpretation * * * * PROCEDURE: US CHEST EFFUSION SURVEY INDICATION: Pleural effusion, malignancy suspected TECHNIQUE: Sonographic images of the posterior chest. Images were stored in a permanent archive. FINDINGS/ IMPRESSION: There is a dominant right pleural effusion. Sonographic guidance was provided for subsequent thoracentesis. Bulb Grower: PSYCHIATRIC Transcribe Date/Time: Jun 14 2022 3:58P Dictated by : PILY HENDRICKS MD This examination was interpreted and the report reviewed and electronically signed by: PILY HENDRICKS MD on Jun 14 2022 3:58PM EST [id number] [facility] US PARACENTESIS BIon 023 US PARACENTESIS BI * * *Final Report* * * DATE OF EXAM: Jun 14 2022 1:58PM [facility] [place] PARACENTESIS BI / PROCEDURE REASON: K74.69-Other cirrhosis of liver (HCC) * * * * Physician Interpretation * * * * EXAM TITLE: ULTRASOUND GUIDED PARACENTESIS CLINICAL HISTORY: Ascites PROCEDURE DATE: 06/14/2022 COMPARISON: Ascites survey dated 06/14/2022 TECHNIQUE: Informed consent was obtained from the patient. The patient was placed in a supine position and with ultrasound guidance an appropriate skin entry site in the right abdomen was identified, prepped, and anesthetized. With ultrasound guidance a 5-Anguillan Yuey needle and sheath was passed into the peritoneal space and 3000 cc of clear yellow fluid was withdrawn. No specimens were sent for laboratory evaluation. There were no apparent complications. RESULT: Ultrasound revealed a generous amount of ascites containing no debris. IMPRESSION: Technically successful ultrasound guided paracentesis yielded 3000 cc of clear yellow fluid. Bulb Grower: RUFINA Transcribe Date/Time: Jun 14 2022 2:05P Dictated by : THOM DOBBINS CNP This examination was interpreted and the report reviewed and electronically signed by: THOM DOBBINS CNP on Jun 14 2022 2:06PM EST [id number] [facility] US THORACENTESIS BIon 2022 US THORACENTESIS BI * * *Final Report* * * DATE OF EXAM: Jun 14 2022 3:54PM [facility] 2048 - US THORACENTESIS BI / PROCEDURE REASON: Pleural effusion, malignancy suspected * * * * Physician Interpretation * * * * EXAM TITLE: ULTRASOUND GUIDED RIGHT THORACENTESIS CLINICAL HISTORY: Right-sided pleural effusion PROCEDURE DATE: 06/14/2022 COMPARISON: Chest effusion study dated 06/14/2022 TECHNIQUE: Informed consent was obtained from the patient. The patient was placed in an erect position with the arms over a tray table and ultrasound interrogated the right hemithorax. An appropriate skin entrance site was identified, prepped, and anesthetized. Under ultrasound guidance a 5-Anguillan Yueh needle was passed into the pleural space and fluid was aspirated with the aid of a vacuum bottle. A specimen was not sent for laboratory analysis. An image was captured documenting the needle in the pleural space. RESULT: Ultrasound reveals a large amount of fluid. 2000 cc of clear yellow fluid was obtained. IMPRESSION: Technically successful ultrasound-guided right thoracentesis yielded 2000 cc of clear yellow fluid which was not sent for laboratory analysis. A large right-sided pleural effusion remains. A follow-up chest radiograph will be obtained to determine the presence or absence of pneumothorax. Bulb Grower: RUFINA Transcribe Date/Time: Jun 14 2022 3:54P Dictated by : THOM DOBBINS CNP This examination was interpreted and the report reviewed and electronically signed by: THOM DOBBINS CNP on Jun 14 2022 3:55PM EST [id number] [facility] XR CHEST 1V FRONTAL PORTon 0 06-14-2022 XR CHEST 1V FRONTAL PORT * * *Final Report* * * DATE OF EXAM: Jun 14 2022 4:25PM [facility] 5376 - XR CHEST 1V FRONTAL PORT / PROCEDURE REASON: Post-operative / post-procedure assessment, asymptomatic * * * * Physician Interpretation * * * * EXAMINATION: CHEST RADIOGRAPH (PORTABLE SINGLE VIEW AP) Exam Date/Time: 06/14/2022 4:25 PM CLINICAL HISTORY: Post-operative / post-procedure assessment, asymptomatic MQ: XCPR_5 Comparison: Chest x-ray 06/14/2022 RESULT: Lines, tubes, and devices: None. Lungs and pleura: Decrease in the right-sided pleural effusion. A moderate to large sized pleural effusion remains. No pneumothorax is seen. Moderate opacification in the lower portion of the LEFT hemithorax. Findings are probably a combination of atelectasis, infiltrate and/or effusion. Cardiomediastinal silhouette: Stable cardiomediastinal silhouette. Other: Bony structures unremarkable. IMPRESSION: 1. No pneumothorax 2. Moderate size right-sided pleural effusion remains 3. Some increased opacification lower portion LEFT hemithorax Bulb Grower: PSYCHIATRIC Transcribe Date/Time: Jun 14 2022 4:59P Dictated by : SHEELA LEVINE DO This examination was interpreted and the report reviewed and electronically signed by: SHEELA LEVINE DO on Jun 14 2022 5:01PM EST [id number] [facility] XR CHEST 1V FRONTAL PORT * * *Final Report* * * DATE OF EXAM: Jun 14 2022 3:00PM MDX 5376 - XR CHEST 1V FRONTAL PORT / PROCEDURE REASON: Dyspnea on exertion (MARR) * * * * Physician Interpretation * * * * EXAMINATION: CHEST RADIOGRAPH (PORTABLE SINGLE VIEW AP) Exam Date/Time: 06/14/2022 3:00 PM CLINICAL HISTORY: Dyspnea on exertion (MARR) MQ: XCPR_5 Comparison: 03/30/2022 IMPRESSION: Lines, tubes, and devices: None. Lungs and pleura: Moderate to large right pleural effusion with associated parenchymal consolidation, greater than previous. Trace left pleural effusion with mild left base consolidation. No pneumothorax. Cardiomediastinal silhouette: No definite acute abnormality Other: . Bulb Grower: PSYCHIATRIC Transcribe Date/Time: Jun 14 2022 3:10P Dictated by : PILY HENDRICKS MD This examination was interpreted and the report reviewed and electronically signed by: PILY HENDRICKS MD on Jun 14 2022 3:11PM EST [id number] [facility] James 06-09-2022 [facility] Telephone ([place]) JESUS SOSA ([id number]) 1950 M Date Time Provider Department 06/09/22 JACKIE LEWIS During your visit today, we recorded the following information about you: Allergies As of Date: 06/09/2022 Noted Allergy Reaction [id number] REDUCTASE INHIBIT*07/27/2020 9 - Itching Date Reviewed: 06/01/2022 Reviewed by: Quan Tafoya Jr., MD - Fully Assessed Reason for Visit: Radiology Pre Procedure Instructions [1506] Prescriptions as of 06/09/2022 - fenofibrate nanocrystallized (TRICOR) 48 mg tablet Take 1 tablet by mouth once daily. - furosemide (LASIX) 20 mg tablet TAKE 1 TABLET BY MOUTH EVERY DAY - spironolactone (ALDACTONE) 50 mg tablet TAKE 1 TABLET BY MOUTH EVERY DAY - carvedilol (COREG) 3.125 mg tablet Take 2 tablets by mouth twice daily with meals. - Cholecalciferol, Vitamin D3, (VITAMIN D-3) 50 mcg (2,000 unit) cap Take 1 capsule by mouth once daily. - acetaminophen (TYLENOL) 325 mg tablet Take 2 tablets by mouth every 4 hours as needed for pain. - alirocumab (PRALUENT PEN) 150 mg/mL Inject 150 mg subcutaneously every 2 weeks. Per cabbage salter.in place of statin - aspirin(ECOTRIN LOW STRENGTH 81 MG TAB) Take one(1) tablet daily. Facility-Administered Medications as of 06/09/2022 - perflutren lipid microspheres 1.3 mL in NaCl (PF) 0.9% 10 mL injection (DEFINITY) - sodium chloride 0.9 % (flush) 10 mL (BD POSIFLUSH) Problem List As Of Date 06/09/2022 Noted Resolved MIXED HYPERLIPIDEMIA [E78.2] 07/19/2007 Elevated prostate specific antigen (PSA) [R97.2*07/19/2007 07/31/2017 BPH with obstruction/lower urinary tract sympto*08/24/2008 Osteoarthrosis, unspecified whether generalized*08/24/2008 01/08/2014 Essential hypertension [I10] 04/02/2009 Chronic prostatitis [N41.1] 05/26/2009 07/31/2017 Bladder neck obstruction [N32.0] 05/26/2009 01/08/2014 Impaired fasting glucose [R73.01] 11/03/2010 Abnormal LFTs (liver function tests) [R79.89] 06/27/2013 01/06/2021 Rash [R21] 01/14/2015 04/17/2019 Bladder mass [N32.89] 02/24/2016 07/07/2016 Occult GI bleeding [R19.5] 01/19/2017 07/31/2017 Abnormal result of iron profile testing [R79.0] 07/15/2017 01/11/2022 Stented coronary artery [Z95.5] 07/18/2017 Tubular adenoma of colon [D12.6] 02/08/2017 Hepatic fibrosis (HCC) on elastography [K74.00] 02/09/2018 Coronary arteriosclerosis in [place] artery [I25*02/09/2018 Obesity, Class I, BMI 30-34.9 [E66.9] 02/15/2018 CKD (chronic kidney disease) stage 3, GFR 30-59*11/20/2018 VANESSA (obstructive sleep apnea) [G47.33] 12/25/2019 Umbilical hernia [K42.9] 12/25/2019 Elevated LFTs [R79.89] 02/10/2020 Nonalcoholic fatty liver disease without nonalc*02/10/2020 Vitamin D deficiency [E55.9] 02/10/2020 Portal hypertension with esophageal varices (HC*02/10/2020 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*02/10/2020 BPH associated with nocturia [N40.1, R35.1] 08/08/2021 Diarrhea [R19.7] 03/29/2022 Encounter Status:Closed by JACKIE LEWIS on 06/09/22 Normal [facility] UA DIP, URINE (POC)on 2021 BILIRUBIN UA (POCT) Negative Negative [facility] CLARITY UA (POCT) Clear [facility] COLOR UA (POCT) Yellow [facility] GLUCOSE UA (POCT) Negative Negative mg/dL [facility] HEMOGLOBIN/BLOOD UA (POCT) Negative Negative [facility] KETONE UA (POCT) Negative Negative mg/dL [facility] LEUKOCYTES UA (POCT) Negative Negative [facility] NITRITE UA (POCT) Positive Abnormal Negative [facility] PH UA (POCT) 5.5 4.5 - 8.0 [facility] Protein Ql (U) Negative Negative mg/dL [facility] SPECIFIC GRAVITY UA (POCT) >=1.030 1.005 - 1.030 [facility] UROBILINOGEN UA (POCT) 0.2 E.U./dL Normal E.U./dL [facility] BODY FLUID CELL COUNTon 03-12 Clarity (Unsp spec) Slightly Cloudy Abnormal Clear [facility] Clarity (Unsp spec) Clear Clear [facility] RBC Manual cnt (Body fld) [#/Vol] <2,000 /uL [facility] Specimen source Nom (Body fld) ABDOMINAL FLUID. [facility] WBC Manual cnt (Body fld) [#/Vol] 96 /uL <1,000 /uL [facility] Laboratory - Specimen inform ationon 03-30-2022 Color (Body fld) Yellow Yellow [facility] PROTEIN BFLon 03-30-2022 Protein (Body fld) [Mass/Vol] 0.5 g/dL See Comment g/dL [facility] US PARACENTESIS (POC) DDI US E ONLYon 03-30-2022 [facility] XR CHEST 2V FRONTAL/LATon [facility] CBC W Auto Differential pane l (Bld)on 03-29-2022 Basophils (Bld) [#/Vol] 0.09 10*3/uL <0.11 k/uL [facility] Basophils/100 WBC (Bld) 1.7 % [facility] Differential cell count method Nom (Bld) Auto [facility] Eosinophils (Bld) [#/Vol] 0.31 10*3/uL <0.46 k/uL [facility] Eosinophils/100 WBC (Bld) 5.8 % [facility] Erythrocyte distribution width (RBC) [Ratio] 16.3 % High 11.5 - 15.0 % [facility] Hematocrit (Bld) [Volume fraction] 37.3 % Low 39.0 - 51.0 % [facility] Hemoglobin (Bld) [Mass/Vol] 12.1 g/dL Low 13.0 - 17.0 g/dL [facility] Immature granulocytes (Bld) [#/Vol] <0.10 k/uL [facility] Immature granulocytes/100 WBC (Bld) 0.4 % [facility] Lymphocytes (Bld) [#/Vol] 1.18 10*3/uL 1.00 - 4.00 k/uL [facility] Lymphocytes/100 WBC (Bld) 21.9 % [facility] MCH (RBC) [Entitic mass] 32.9 pg 26.0 - 34.0 pg [facility] MCHC (RBC) [Mass/Vol] 32.4 g/dL 30.5 - 36.0 g/dL [facility] MCV (RBC) [Entitic vol] 101.4 fL High 80.0 - 100.0 fL [facility] Monocytes (Bld) [#/Vol] 0.81 10*3/uL <0.87 k/uL [facility] Monocytes/100 WBC (Bld) 15.1 % [facility] Neutrophils (Bld) [#/Vol] 2.97 10*3/uL 1.45 - 7.50 k/uL [facility] Neutrophils/100 WBC (Bld) 55.1 % [facility] Nucleated RBC (Bld) [#/Vol] <0.01 k/uL [facility] Nucleated RBC/100 WBC (Bld) [Ratio] 0.0 /100 WBC [facility] Platelet mean volume (Bld) [Entitic vol] 10.6 fL 9.0 - 12.7 fL [facility] Platelets (Bld) [#/Vol] 123 10*3/uL Low 150 - 400 k/uL [facility] RBC (Bld) [#/Vol] 3.68 10*6/uL Low 4.20 - 6.0 0 m/uL [facility] WBC (Bld) [#/Vol] 5.38 10*3/uL 3.70 - 11.00 k/uL [facility] Comprehensive metabolic 2000 panelon 03-29-2022 Albumin [Mass/Vol] 3.0 g/dL Low 3.9 - 4.9 g/dL [facility] ALP [Catalytic activity/Vol] 106 U/L 38 - 113 U/L [facility] ALT [Catalytic activity/Vol] 43 U/L 10 - 54 U/L [facility] Anion gap [Moles/Vol] 6 mmol/L Low 9 - 18 mmol/L [facility] AST [Catalytic activity/Vol] 70 U/L High 14 - 40 U/L [facility] Bilirubin [Mass/Vol] 2.3 mg/dL High 0.2 - 1 .3 mg/dL [facility] Calcium [Mass/Vol] 8.9 mg/dL 8.5 - 10. 2 mg/dL [facility] Chloride [Moles/Vol] 107 mmol/L High 97 - 10 5 mmol/L [facility] CO2 [Moles/Vol] 26 mmol/L 22 - 30 mmol/L [facility] Creatinine [Mass/Vol] 1.25 mg/dL High 0.73 - 1.22 mg/dL [facility] Estimated Glomerular Filtration Rate 61 mL/min/1.73m >=60 mL/min/1.73 m [facility] Glucose [Mass/Vol] 97 mg/dL 74 - 99 mg/dL [facility] Potassium [Moles/Vol] 4.3 mmol/L 3.7 - 5.1 mmol/L [facility] Protein [Mass/Vol] 5.5 g/dL Low 6.3 - 8.0 g/dL [facility] Sodium [Moles/Vol] 139 mmol/L 136 - 144 mmol/L [facility] Urea nitrogen [Mass/Vol] 22 mg/dL 9 - 24 mg/dL [facility] PT panel Coag (PPP)on 2021 INR Coag (PPP) [Relative time] 1.3 {INR} 0.9 - 1.3 [facility] PT Coag (PPP) [Time] 12.9 s 9.7 - 1 3.0 sec [facility] EGD - THERAPEUTIC, EUS, OR T UBE INTERVENTIONSon 01-05-2022 [facility] US ABD LIVER VASCULARon 11-10 [facility] US DOPPLER COMPLETEon 2021 [facility] UA DIP, URINE (POC)on 2021 BILIRUBIN UA (POCT) Negative Negative [facility] CLARITY UA (POCT) Clear [facility] COLOR UA (POCT) Yellow [facility] GLUCOSE UA (POCT) Negative Negative mg/dL [facility] HEMOGLOBIN/BLOOD UA (POCT) Trace-intact Abnormal Negative [facility] KETONE UA (POCT) Negative Negative mg/dL [facility] LEUKOCYTES UA (POCT) Small Abnormal Negative [facility] NITRITE UA (POCT) Negative Negative [facility] PH UA (POCT) 6.5 4.5 - 8.0 [facility] Protein Ql (U) Negative Negative mg/dL [facility] SPECIFIC GRAVITY UA (POCT) 1.025 1.005 - 1.030 [facility] UROBILINOGEN UA (POCT) 1.0 E.U./dL Normal E.U./dL [facility] Basophil percentageon 2021 Bilirubin [Mass/Vol] 1.60 mg/dL 0.20-1.00 [facility] Work Phone: Comment on above: For patients on eltr ombopag therapy, use of Dimension [place] TBIL is not recommended. Cholesterol [Mass/Vol] 173 mg/dL <200 [facility] Work Phone: Comment on above: <200 mg/dL Desirable 200-240 mg/dL Borderline >240 mg/dL High Risk Protein [Mass/Vol] 6.0 g/dL 6.4-8.2 [facility] Work Phone: Triglyceride [Mass/Vol] 66 mg/dL [facility] Work Phone: Comment on above: The drugs N-Acetylcy steine and Metamizole may falsely depress this assay.Serum Triglycerides Reference Interval Normal <150 mg/dL Borderline high 150 - 199 mg/dL High 200 - 499 mg/dL Very High > or = 500 mg/dL Direct bilirubinon 2 Bilirubin.direct [Mass/Vol] 0.65 mg/dL 0.00-0.30 [facility] Work Phone: Laboratory - Chemistry and C hemistry - challengeon 11-14-2021 ALP [Catalytic activity/Vol] 137 U/L 45-117 [facility] Work Phone: ALT [Catalytic activity/Vol] 91 U/L 16-61 [facility] Work Phone: Globulin (S) [Mass/Vol] 2.9 g/dL 2.2-4.2 [facility] Work Phone: Serum or plasma albumin estella urement (mass/volume)on 11-14-2021 Albumin [Mass/Vol] 3.1 g/dL 3.2-5.0 [facility] Work Phone: Serum or plasma cholesterol in HDL measurement (mass/volume)on 11-14-2021 Cholesterol in HDL [Mass/Vol] 75 mg/dL [facility] Work Phone: Comment on above: The drugs N-Acetylcy steine and Metamizole may falsely depress this assay. Reference Range HDL <40 mg/dL Low HDL Cholesterol HDL >or= 60 mg/dL High HDL Cholesterol Serum or plasma cholesterol in VLDL measurement (mass/volume)on 11-14-2021 Cholesterol in VLDL [Mass/Vol] 13 mg/dL 5-40 [facility] Work Phone: Serum or plasma low density lipoprotein (LDL) cholesterol measurement (mass/volume)on 11-14-2021 Cholesterol in LDL [Mass/Vol] 85 mg/dL 0-130 [facility] Work Phone: Thin prep Papanicolaou smear with manual screeningon 11-14-2021 Thin prep Papanicolaou smear with manual screening 141 U/L 15-37 [facility] Work Phone: ELASTOGRAPHY WITH IMAGINGon 12-27-2017 ELASTOGRAPHY WITH IMAGING ELASTOGRAPHY WITH IMAGINGOrdering Physician: Kelby Suarez12/27/2017 1:00 PMULTRASOUND OF THE LIVER AND ELASTOGRAPHY:Clinical Statement: Elevated liver enzymes.FINDINGS: The liver is upper normal in size at 18.0 cm. There isdiffuse increased echogenicity indicating hepaticsteatosis/hepatocellu lar disease. There is no discrete hepatic mass orbiliary distention. There is no ascites.Liver elastography was performed with samples obtained at a depth of5.9 cm. The median value is 1.87 m/s, with a mean reference valueof 1.93 m/s.Based on values obtained, hepatic fibrosis is present with a fibrosisstage of greater than category F4 based on the Mc-Rust study ofacoustic radiation force impulse.IQR: 0.32IQR/median ratio equals 0.17 (must be 0.3 or less to ensuretechnical adequacy)Optimal cutoffs for ARFI:Greater than or equal to F1 - 1.02 M/secGreater than or equal to F2 - 1.34 M/secGreater than or equal to F3 - 1.55 M/secGreater than or equal to F4 - 1.8 M/secIMPRESSION:1. Liver elastography demonstrates elevated velocities indicating thepresence of hepatic fibrosis. The mean value is 1.93 m/sindicating an F-score greater than than category F4.2. Imaging demonstrates hepatic steatosis/hepatocellular disease. ---- Electronic Signature on File ----Signed By: Ariana [email or web address]: 12/27/2017 3:26 PMSigned: 12/27/2017 3:30 PM Reported By: ABHI ACEVEDO M.D. Signed By: ABHI ACEVEDO M.D. [facility] LIVERon 12-27-2017 LIVER US LIVEROrdering Paulette leon: Kelby Suarez12/27/2017 1:00 PMAssociated examinations.IMPRESSION:Plea se refer to the radiology report under accession # [id number]. ---- Electronic Signature on File ----Signed By: Ariana [email or web address]: 12/28/2017 11:56 AMSigned: 12/28/2017 1:04 PM Reported By: ABHI ACEVEDO M.D. Signed By: ABHI ACEVEDO M.D. [facility] [place] No Panel Information [facility] Vital Signs Date Time Vital Sign Value Performing Clinician Facility 02-12-2025 10:30-0400 Diastolic blood pressure 89 mm[Hg] Ladarius Uriarte MD Work Phone: [facility] 02-12-2025 10:30-0400 Heart rate 54 /min Ladarius Uriarte MD Work Phone: [facility] 02-12-2025 10:30-0400 Respiratory rate 16 /min Ladarius Uriarte MD Work Phone: [facility] 02-12-2025 10:30-0400 SaO2% (BldA) [Mass fraction] 96 % Ladarius Uriarte MD Work Phone: [facility] 02-12-2025 10:30-0400 Systolic blood pressure 162 mm[Hg] Ladarius Uriarte MD Work Phone: [facility] 02-12-2025 08:05-0400 Body height 172.7 cm Ladarius Uriarte MD Work Phone: [facility] 02-12-2025 08:05-0400 Body mass index (BMI) [Ratio] 34.06 kg/m2 Ladarius Uriarte MD Work Phone: [facility] 02-12-2025 08:05-0400 Body temperature 97.7 [degF] Ladarius Uriarte MD Work Phone: [facility] 02-12-2025 08:05-0400 Body weight 101.61 kg Ladarius Uriarte MD Work Phone: [facility] 02-06-2025 09:58-0400 Body height 173.4 cm Willem Madsen MD Work Phone: [facility] 02-06-2025 09:58-0400 Body mass index (BMI) [Ratio] 33.84 kg/m2 Willem Madsen MD Work Phone: [facility] 02-06-2025 09:58-0400 Body weight 101.7 kg Willem Madsen MD Work Phone: [facility] 02-06-2025 09:58-0400 Diastolic blood pressure 83 mm[Hg] Willem Madsen MD Work Phone: [facility] 02-06-2025 09:58-0400 Heart rate 71 /min Willem Madsen MD Work Phone: [facility] 02-06-2025 09:58-0400 Respiratory rate 16 /min Willem Madsen MD Work Phone: [facility] 02-06-2025 09:58-0400 SaO2% (BldA) [Mass fraction] 94 % Willem Madsen MD Work Phone: [facility] 02-06-2025 09:58-0400 Systolic blood pressure 124 mm[Hg] Willem Madsen MD Work Phone: [facility] 01-23-2025 09:38-0400 Heart rate 60 /min [facility] Comment on above: patient counted 01-23-2025 09:31-0400 Body height 170.2 cm [facility] Comment on above: patient reported 01-23-2025 09:31-0400 Body mass index (BMI) [Ratio] 34.14 kg/m2 [facility] 01-23-2025 09:31-0400 Body weight 98.88 kg [facility] Comment on above: patient reported 01-23-2025 09:31-0400 Diastolic blood pressure 83 mm[Hg] [facility] Comment on above: home BP cuff prior to visit 01-23-2025 09:31-0400 Systolic blood pressure 146 mm[Hg] [facility] Comment on above: home BP cuff prior to visit 01-06-2025 15:52-0400 Body mass index (BMI) [Ratio] 34.93 kg/m2 Danita Driver THERAPEUTIC RECREATION SPECIALIST.EMISSIONS TECHNICIAN Work Phone: [facility] 01-06-2025 15:52-0400 Body weight 101.15 kg Danita Driver THERAPEUTIC RECREATION SPECIALIST.EMISSIONS TECHNICIAN Work Phone: [facility] 01-06-2025 15:52-0400 Diastolic blood pressure 79 mm[Hg] Danita Villa THERAPEUTIC RECREATION SPECIALIST.EMISSIONS TECHNICIAN Work Phone: [facility] 01-06-2025 15:52-0400 Heart rate 68 /min Danita Villa THERAPEUTIC RECREATION SPECIALIST.EMISSIONS TECHNICIAN Work Phone: [facility] 01-06-2025 15:52-0400 Respiratory rate 12 /min Danita Villa THERAPEUTIC RECREATION SPECIALIST.EMISSIONS TECHNICIAN Work Phone: [facility] 01-06-2025 15:52-0400 SaO2% (BldA) [Mass fraction] 97 % Danita Villa THERAPEUTIC RECREATION SPECIALIST.EMISSIONS TECHNICIAN Work Phone: [facility] 01-06-2025 15:52-0400 Systolic blood pressure 133 mm[Hg] Danita Villa THERAPEUTIC RECREATION SPECIALIST.EMISSIONS TECHNICIAN Work Phone: [facility] 01-05-2025 14:11-0400 Body height 170.2 cm Demetrius Goldberg MD Work Phone: [facility] 01-05-2025 14:11-0400 Body mass index (BMI) [Ratio] 34.61 kg/m2 Demetrius Goldberg MD Work Phone: [facility] 01-05-2025 14:11-0400 Body weight 100.25 kg Demetrius Goldberg MD Work Phone: [facility] 01-05-2025 14:11-0400 Diastolic blood pressure 70 mm[Hg] Demetrius Goldberg MD Work Phone: [facility] 01-05-2025 14:11-0400 Heart rate 63 /min Demetrius Goldberg MD Work Phone: [facility] 01-05-2025 14:11-0400 Respiratory rate 14 /min Demetrius Goldberg MD Work Phone: [facility] 01-05-2025 14:11-0400 SaO2% (BldA) [Mass fraction] 97 % Demetrius Goldberg MD Work Phone: [facility] 01-05-2025 14:11-0400 Systolic blood pressure 128 mm[Hg] Demetrius Goldberg MD Work Phone: [facility] 08-08-2024 10:15-0500 Body height 170.2 cm Willem Madsen MD Work Phone: [facility] 08-08-2024 10:15-0500 Body mass index (BMI) [Ratio] 34.46 kg/m2 Willem Madsen MD Work Phone: [facility] 08-08-2024 10:15-0500 Body temperature 98.2 [degF] Willem Madsen MD Work Phone: [facility] 08-08-2024 10:15-0500 Body weight 99.8 kg Willem Madsen MD Work Phone: [facility] 08-08-2024 10:15-0500 Diastolic blood pressure 70 mm[Hg] Willem Madsen MD Work Phone: [facility] 08-08-2024 10:15-0500 Heart rate 80 /min Willem Madsen MD Work Phone: [facility] 08-08-2024 10:15-0500 Respiratory rate 14 /min Willem Madsen MD Work Phone: [facility] 08-08-2024 10:15-0500 SaO2% (BldA) [Mass fraction] 95 % Willem Madsen MD Work Phone: [facility] 08-08-2024 10:15-0500 Systolic blood pressure 126 mm[Hg] Willem Madsen MD Work Phone: [facility] 07-08-2024 14:31-0500 Body height 170.2 cm Demetrius Goldberg MD Work Phone: [facility] 07-08-2024 14:31-0500 Body mass index (BMI) [Ratio] 33.99 kg/m2 Demetrius Goldberg MD Work Phone: [facility] 07-08-2024 14:31-0500 Body weight 98.43 kg Demetrius Goldberg MD Work Phone: [facility] 07-08-2024 14:31-0500 Diastolic blood pressure 80 mm[Hg] Demetrius Goldberg MD Work Phone: [facility] 07-08-2024 14:31-0500 Heart rate 84 /min Demetrius Goldberg MD Work Phone: [facility] 07-08-2024 14:31-0500 Respiratory rate 18 /min Demetrius Goldberg MD Work Phone: [facility] 07-08-2024 14:31-0500 SaO2% (BldA) [Mass fraction] 96 % Demetrius Goldberg MD Work Phone: [facility] 07-08-2024 14:31-0500 Systolic blood pressure 138 mm[Hg] Demetrius Goldberg MD Work Phone: [facility] 04-14-2024 09:48-0500 Body height 170.2 cm Abisai Mcclelland THERAPEUTIC RECREATION SPECIALIST.EMISSIONS TECHNICIAN Work Phone: [facility] 04-14-2024 09:48-0500 Body mass index (BMI) [Ratio] 33.32 kg/m2 Abisai Mcclelland THERAPEUTIC RECREATION SPECIALIST.EMISSIONS TECHNICIAN Work Phone: [facility] 04-14-2024 09:48-0500 Body temperature 97.81 [degF] Abisai Mcclelland THERAPEUTIC RECREATION SPECIALIST.EMISSIONS TECHNICIAN Work Phone: [facility] 04-14-2024 09:48-0500 Body weight 96.5 kg Abisai Mcclelland THERAPEUTIC RECREATION SPECIALIST.EMISSIONS TECHNICIAN Work Phone: [facility] 04-14-2024 09:48-0500 Diastolic blood pressure 84 mm[Hg] Abisai Mcclleland THERAPEUTIC RECREATION SPECIALIST.EMISSIONS TECHNICIAN Work Phone: [facility] Comment on above: patient does not take BP meds 04-14-2024 09:48-0500 Heart rate 59 /min Abisai Mcclelland THERAPEUTIC RECREATION SPECIALIST.EMISSIONS TECHNICIAN Work Phone: [facility] 04-14-2024 09:48-0500 Respiratory rate 16 /min Abisai Mcclelland THERAPEUTIC RECREATION SPECIALIST.EMISSIONS TECHNICIAN Work Phone: [facility] 04-14-2024 09:48-0500 SaO2% (BldA) [Mass fraction] 98 % Abisai Mcclelland THERAPEUTIC RECREATION SPECIALIST.EMISSIONS TECHNICIAN Work Phone: [facility] 04-14-2024 09:48-0500 Systolic blood pressure 149 mm[Hg] Abisai Mcclelland THERAPEUTIC RECREATION SPECIALIST.EMISSIONS TECHNICIAN Work Phone: [facility] Comment on above: patient does not take BP meds 02-08-2024 10:14-0400 Body height 170.2 cm Willem Madsen MD Work Phone: [facility] 02-08-2024 10:14-0400 Body mass index (BMI) [Ratio] 32.84 kg/m2 Willem Madsen MD Work Phone: [facility] 02-08-2024 10:14-0400 Body temperature 97.81 [degF] Willem Madsen MD Work Phone: [facility] 02-08-2024 10:14-0400 Body weight 95.1 kg Willem Madsen MD Work Phone: [facility] 02-08-2024 10:14-0400 Diastolic blood pressure 74 mm[Hg] Willem Madsen MD Work Phone: [facility] 02-08-2024 10:14-0400 Heart rate 69 /min Willem Madsen MD Work Phone: [facility] 02-08-2024 10:14-0400 Respiratory rate 16 /min Willem Madsen MD Work Phone: [facility] 02-08-2024 10:14-0400 SaO2% (BldA) [Mass fraction] 97 % Willem Madsen MD Work Phone: [facility] 02-08-2024 10:14-0400 Systolic blood pressure 126 mm[Hg] Willem Madsen MD Work Phone: [facility] 10-08-2023 12:55-0400 Body height 172.2 cm Abisai Mcclelland THERAPEUTIC RECREATION SPECIALIST.EMISSIONS TECHNICIAN Work Phone: [facility] 10-08-2023 12:55-0400 Body mass index (BMI) [Ratio] 30.22 kg/m2 Abisai Mcclelland THERAPEUTIC RECREATION SPECIALIST.EMISSIONS TECHNICIAN Work Phone: [facility] 10-08-2023 12:55-0400 Body temperature 97.7 [degF] Abisai Mcclelland THERAPEUTIC RECREATION SPECIALIST.EMISSIONS TECHNICIAN Work Phone: [facility] 10-08-2023 12:55-0400 Body weight 89.6 kg Abisai Mcclelland THERAPEUTIC RECREATION SPECIALIST.EMISSIONS TECHNICIAN Work Phone: [facility] 10-08-2023 12:55-0400 Diastolic blood pressure 79 mm[Hg] Abisai Mcclelland THERAPEUTIC RECREATION SPECIALIST.EMISSIONS TECHNICIAN Work Phone: [facility] 10-08-2023 12:55-0400 Heart rate 66 /min Abisai Mcclelland THERAPEUTIC RECREATION SPECIALIST.EMISSIONS TECHNICIAN Work Phone: [facility] 10-08-2023 12:55-0400 Respiratory rate 14 /min Abisai Mcclelland THERAPEUTIC RECREATION SPECIALIST.EMISSIONS TECHNICIAN Work Phone: [facility] 10-08-2023 12:55-0400 SaO2% (BldA) [Mass fraction] 98 % Abisai Mcclelland THERAPEUTIC RECREATION SPECIALIST.EMISSIONS TECHNICIAN Work Phone: [facility] 10-08-2023 12:55-0400 Systolic blood pressure 127 mm[Hg] Abisai Mcclelland THERAPEUTIC RECREATION SPECIALIST.EMISSIONS TECHNICIAN Work Phone: [facility] 10-01-2023 11:33-0400 Body mass index (BMI) [Ratio] 30.74 kg/m2 Demetrius Goldberg MD Work Phone: [facility] 10-01-2023 11:33-0400 Body weight 91.17 kg Demetrius Goldberg MD Work Phone: [facility] 10-01-2023 11:33-0400 Diastolic blood pressure 74 mm[Hg] Demetrius Goldberg MD Work Phone: [facility] 10-01-2023 11:33-0400 Heart rate 73 /min Demetrius Goldberg MD Work Phone: [facility] 10-01-2023 11:33-0400 SaO2% (BldA) [Mass fraction] 98 % Demetrius Goldberg MD Work Phone: [facility] 10-01-2023 11:33-0400 Systolic blood pressure 132 mm[Hg] Demetrius Goldberg MD Work Phone: [facility] 08-13-2023 12:32-0500 Diastolic blood pressure 73 mm[Hg] Willem Madsen MD Work Phone: [facility] 08-13-2023 12:32-0500 Heart rate 70 /min Willem Madsen MD Work Phone: [facility] 08-13-2023 12:32-0500 Systolic blood pressure 124 mm[Hg] Willem Madsen MD Work Phone: [facility] 08-13-2023 12:23-0500 Body temperature 98.2 [degF] Willem Madsen MD Work Phone: [facility] 08-13-2023 12:23-0500 Body weight 86.18 kg Willem Madsen MD Work Phone: [facility] 08-13-2023 12:23-0500 Respiratory rate 20 /min Willem Madsen MD Work Phone: [facility] 05-01-2023 09:27-0500 Body weight 79.38 kg Dior Cr RN Work Phone: [facility] 05-01-2023 09:27-0500 Diastolic blood pressure 68 mm[Hg] Dior Cr RN Work Phone: [facility] 05-01-2023 09:27-0500 Heart rate 98 /min Dior Cr RN Work Phone: [facility] 05-01-2023 09:27-0500 Respiratory rate 20 /min Dior Cr RN Work Phone: [facility] 05-01-2023 09:27-0500 Systolic blood pressure 118 mm[Hg] Dior Cr RN Work Phone: [facility] 04-26-2023 12:13-0500 Body temperature 98.1 [degF] Dior Cr RN Work Phone: [facility] 04-26-2023 12:13-0500 Diastolic blood pressure 64 mm[Hg] Dior Cr RN Work Phone: [facility] 04-26-2023 12:13-0500 Heart rate 72 /min Dior Cr RN Work Phone: [facility] 04-26-2023 12:13-0500 Respiratory rate 18 /min Dior Cr RN Work Phone: [facility] 04-26-2023 12:13-0500 SaO2% (BldA) [Mass fraction] 97 % Dior Cr RN Work Phone: [facility] 04-26-2023 12:13-0500 Systolic blood pressure 112 mm[Hg] Dior Cr RN Work Phone: [facility] 04-25-2023 14:18-0500 Body height 174 cm Dex Oneill MD Work Phone: [facility] 04-25-2023 14:18-0500 Body temperature 97.7 [degF] Dex Oneill MD Work Phone: [facility] 04-25-2023 14:18-0500 Body weight 80.29 kg Dex Oneill MD Work Phone: [facility] 04-25-2023 14:18-0500 Diastolic blood pressure 70 mm[Hg] Dex Oneill MD Work Phone: [facility] 04-25-2023 14:18-0500 Heart rate 75 /min Dex Oneill MD Work Phone: [facility] 04-25-2023 14:18-0500 Respiratory rate 18 /min Dex Oneill MD Work Phone: [facility] 04-25-2023 14:18-0500 SaO2% (BldA) [Mass fraction] 96 % Dex Oneill MD Work Phone: [facility] 04-25-2023 14:18-0500 Systolic blood pressure 135 mm[Hg] Dex Oneill MD Work Phone: [facility] 04-18-2023 13:22-0500 Body height 174 cm Marco Short MD Work Phone: [facility] 04-18-2023 13:22-0500 Body temperature 98.01 [degF] Marco Short MD Work Phone: [facility] 04-18-2023 13:22-0500 Body weight 81.65 kg Marco Short MD Work Phone: [facility] 04-18-2023 13:22-0500 Diastolic blood pressure 80 mm[Hg] Marco Short MD Work Phone: [facility] 04-18-2023 13:22-0500 Heart rate 70 /min Marco Short MD Work Phone: [facility] 04-18-2023 13:22-0500 Respiratory rate 16 /min Marco Short MD Work Phone: [facility] 04-18-2023 13:22-0500 SaO2% (BldA) [Mass fraction] 99 % Marco Short MD Work Phone: [facility] 04-18-2023 13:22-0500 Systolic blood pressure 142 mm[Hg] Marco Short MD Work Phone: [facility] 04-16-2023 10:38-0500 Body weight 84.82 kg Demetrius Goldberg MD Work Phone: [facility] 04-16-2023 10:38-0500 Diastolic blood pressure 72 mm[Hg] Demetrius Goldberg MD Work Phone: [facility] 04-16-2023 10:38-0500 Heart rate 76 /min Demetrius Goldberg MD Work Phone: [facility] 04-16-2023 10:38-0500 SaO2% (BldA) [Mass fraction] 96 % Demetrius Goldberg MD Work Phone: [facility] 04-16-2023 10:38-0500 Systolic blood pressure 132 mm[Hg] Demetrius Goldberg MD Work Phone: [facility] 04-14-2023 14:45-0400 Body temperature 97.7 [degF] Radha Halderman-Cole PT Work Phone: [facility] 04-14-2023 14:45-0400 Diastolic blood pressure 78 mm[Hg] Radha Halderman-Cole PT Work Phone: [facility] 04-14-2023 14:45-0400 Heart rate 68 /min Radha Halderman-Cole PT Work Phone: [facility] 04-14-2023 14:45-0400 Respiratory rate 18 /min Radha Halderman-Cole PT Work Phone: [facility] 04-14-2023 14:45-0400 SaO2% (BldA) [Mass fraction] 98 % Radha Halderman-Cole PT Work Phone: [facility] 04-14-2023 14:45-0400 Systolic blood pressure 150 mm[Hg] Radha Halderman-Cole PT Work Phone: [facility] 04-13-2023 13:02-0400 Diastolic blood pressure 68 mm[Hg] Dior Cr RN Work Phone: [facility] 04-13-2023 13:02-0400 Heart rate 68 /min Dior Cr RN Work Phone: [facility] 04-13-2023 13:02-0400 Respiratory rate 20 /min Dior Cr RN Work Phone: [facility] 04-13-2023 13:02-0400 SaO2% (BldA) [Mass fraction] 98 % Dior Cr RN Work Phone: [facility] 04-13-2023 13:02-0400 Systolic blood pressure 122 mm[Hg] Dior Tayo RN Work Phone: [facility] 04-09-2023 11:20-0400 Body temperature 97.7 [degF] Cynthia Freitas RN Work Phone: [facility] 04-09-2023 11:20-0400 Diastolic blood pressure 64 mm[Hg] Cynthia Freitas RN Work Phone: [facility] 04-09-2023 11:20-0400 Heart rate 70 /min Cynthia Freitas RN Work Phone: [facility] 04-09-2023 11:20-0400 Respiratory rate 18 /min Cynthia Freitas RN Work Phone: [facility] 04-09-2023 11:20-0400 SaO2% (BldA) [Mass fraction] 95 % Cynthia Freitas RN Work Phone: [facility] 04-09-2023 11:20-0400 Systolic blood pressure 126 mm[Hg] Cynthia Freitas RN Work Phone: [facility] 03-09-2023 10:05-0400 Diastolic blood pressure 63 mm[Hg] Maxi Perez MD Work Phone: [facility] 03-09-2023 10:05-0400 Heart rate 68 /min Maxi Perez MD Work Phone: [facility] 03-09-2023 10:05-0400 Respiratory rate 16 /min Maxi Perez MD Work Phone: [facility] 03-09-2023 10:05-0400 SaO2% (BldA) [Mass fraction] 99 % Maxi Perez MD Work Phone: [facility] 03-09-2023 10:05-0400 Systolic blood pressure 132 mm[Hg] Maxi Perez MD Work Phone: [facility] 03-09-2023 09:25-0400 Body height 170.2 cm Maxi Perez MD Work Phone: [facility] 03-09-2023 09:25-0400 Body temperature 97.9 [degF] Maxi Perez MD Work Phone: [facility] 03-09-2023 09:25-0400 Body weight 88.45 kg Maxi Perez MD Work Phone: [facility] 02-16-2023 09:56-0400 Diastolic blood pressure 56 mm[Hg] Dionte Soria MD Work Phone: [facility] 02-16-2023 09:56-0400 Heart rate 65 /min Dionte Soria MD Work Phone: [facility] 02-16-2023 09:56-0400 Respiratory rate 18 /min Dionte Soria MD Work Phone: [facility] 02-16-2023 09:56-0400 SaO2% (BldA) [Mass fraction] 98 % Dionte Soria MD Work Phone: [facility] 02-16-2023 09:56-0400 Systolic blood pressure 119 mm[Hg] Dionte Soria MD Work Phone: [facility] 02-16-2023 09:02-0400 Body temperature 97.2 [degF] Dionte Soria MD Work Phone: [facility] 02-07-2023 10:42-0400 Body height 171.7 cm Willem Madsen MD Work Phone: [facility] 02-07-2023 10:42-0400 Body weight 93.89 kg Willem Madsen MD Work Phone: [facility] 02-07-2023 10:42-0400 Diastolic blood pressure 50 mm[Hg] Willem Madsen MD Work Phone: [facility] 02-07-2023 10:42-0400 Heart rate 72 /min Willem Madsen MD Work Phone: [facility] 02-07-2023 10:42-0400 Respiratory rate 16 /min Willem Madsen MD Work Phone: [facility] 02-07-2023 10:42-0400 Systolic blood pressure 126 mm[Hg] Willem Madsen MD Work Phone: [facility] 02-02-2023 09:43-0400 Diastolic blood pressure 61 mm[Hg] Duran Mcneil MD Work Phone: [facility] 02-02-2023 09:43-0400 Heart rate 71 /min Duran Mcneil MD Work Phone: [facility] 02-02-2023 09:43-0400 Respiratory rate 16 /min Duran Mcneil MD Work Phone: [facility] 02-02-2023 09:43-0400 SaO2% (BldA) [Mass fraction] 98 % Duran Mcneil MD Work Phone: [facility] 02-02-2023 09:43-0400 Systolic blood pressure 126 mm[Hg] Duran Mcneil MD Work Phone: [facility] 01-23-2023 10:58-0400 Diastolic blood pressure 53 mm[Hg] Holly Shell MD Work Phone: [facility] 01-23-2023 10:58-0400 Heart rate 69 /min Holly Shell MD Work Phone: [facility] 01-23-2023 10:58-0400 Respiratory rate 18 /min Holly Shell MD Work Phone: [facility] 01-23-2023 10:58-0400 SaO2% (BldA) [Mass fraction] 98 % Holly Shell MD Work Phone: [facility] 01-23-2023 10:58-0400 Systolic blood pressure 109 mm[Hg] Holly Shell MD Work Phone: [facility] 01-23-2023 09:12-0400 Body temperature 98.4 [degF] Holly Shell MD Work Phone: [facility] 01-11-2023 10:14-0400 Body temperature 96.6 [degF] Gloria Calero MD Work Phone: [facility] 01-11-2023 10:14-0400 Diastolic blood pressure 63 mm[Hg] Gloria Calero MD Work Phone: [facility] 01-11-2023 10:14-0400 Heart rate 87 /min Gloria Calero MD Work Phone: [facility] 01-11-2023 10:14-0400 Respiratory rate 18 /min Gloria Calero MD Work Phone: [facility] 01-11-2023 10:14-0400 SaO2% (BldA) [Mass fraction] 95 % Gloria Calero MD Work Phone: [facility] 01-11-2023 10:14-0400 Systolic blood pressure 140 mm[Hg] Gloria Calero MD Work Phone: [facility] 12-22-2022 12:25-0400 Body temperature 96.8 [degF] Dani Ross MD Work Phone: [facility] 12-22-2022 12:25-0400 Diastolic blood pressure 62 mm[Hg] Dani Ross MD Work Phone: [facility] 12-22-2022 12:25-0400 Heart rate 67 /min Dani Ross MD Work Phone: [facility] 12-22-2022 12:25-0400 Respiratory rate 18 /min Dani Ross MD Work Phone: [facility] 12-22-2022 12:25-0400 SaO2% (BldA) [Mass fraction] 96 % Dani Ross MD Work Phone: [facility] 12-22-2022 12:25-0400 Systolic blood pressure 131 mm[Hg] Dani Ross MD Work Phone: [facility] 11-23-2022 09:57-0400 Body temperature 96.8 [degF] Gloria Calero MD Work Phone: [facility] 11-23-2022 09:57-0400 Diastolic blood pressure 60 mm[Hg] Gloria Calero MD Work Phone: [facility] 11-23-2022 09:57-0400 Heart rate 67 /min Gloria Calero MD Work Phone: [facility] 11-23-2022 09:57-0400 Respiratory rate 18 /min Gloria Calero MD Work Phone: [facility] 11-23-2022 09:57-0400 SaO2% (BldA) [Mass fraction] 97 % Gloria Calero MD Work Phone: [facility] 11-23-2022 09:57-0400 Systolic blood pressure 123 mm[Hg] Gloria Calero MD Work Phone: [facility] 11-13-2022 10:58-0400 Diastolic blood pressure 60 mm[Hg] Holly Shell MD Work Phone: [facility] 11-13-2022 10:58-0400 Respiratory rate 18 /min Holly Shell MD Work Phone: [facility] 11-13-2022 10:58-0400 SaO2% (BldA) [Mass fraction] 95 % Holly Shell MD Work Phone: [facility] 11-13-2022 10:58-0400 Systolic blood pressure 126 mm[Hg] Holly Shell MD Work Phone: [facility] 11-13-2022 10:24-0400 Body height 172.7 cm Holly Shell MD Work Phone: [facility] 11-13-2022 10:24-0400 Body temperature 97 [degF] Holly Shell MD Work Phone: [facility] 11-13-2022 10:24-0400 Body weight 102.97 kg Holly Shell MD Work Phone: [facility] 11-10-2022 08:50-0400 Body temperature 96.8 [degF] Hepatology [facility] 11-10-2022 08:50-0400 Body weight 103.19 kg [facility]atology [facility]3 [facility] 11-10-2022 08:50-0400 Diastolic blood pressure 60 mm[Hg] [facility]atology [facility]3 [facility] 11-10-2022 08:50-0400 Heart rate 73 /min [facility] 11-10-2022 08:50-0400 Respiratory rate 18 /min [facility] 11-10-2022 08:50-0400 SaO2% (BldA) [Mass fraction] 95 % [facility]ology [facility] 11-10-2022 08:50-0400 Systolic blood pressure 131 mm[Hg] [facility]atology [facility]3 [facility] 10-18-2022 08:28-0400 Body height 174 cm [facility] Work Phone: [facility] 10-18-2022 08:28-0400 Body temperature 98.4 [degF] [facility] Work Phone: [facility] 10-18-2022 08:28-0400 Body weight 98.88 kg [facility] Work Phone: [facility] 10-18-2022 08:28-0400 Diastolic blood pressure 48 mm[Hg] [facility] Work Phone: [facility] 10-18-2022 08:28-0400 Heart rate 84 /min [facility] Work Phone: [facility] 10-18-2022 08:28-0400 Respiratory rate 16 /min [facility] Work Phone: [facility] 10-18-2022 08:28-0400 SaO2% (BldA) [Mass fraction] 95 % [facility] Work Phone: [facility] 10-18-2022 08:28-0400 Systolic blood pressure 149 mm[Hg] [facility] Work Phone: [facility] 10-12-2022 08:29-0400 Body height 174 cm Yusuf Russell MD Work Phone: [facility] 10-12-2022 08:29-0400 Body temperature 97.9 [degF] Yusuf Russell MD Work Phone: [facility] 10-12-2022 08:29-0400 Body weight 92.99 kg Yusuf Russell MD Work Phone: [facility] 10-12-2022 08:29-0400 Diastolic blood pressure 50 mm[Hg] Yusuf Russell MD Work Phone: [facility] 10-12-2022 08:29-0400 Heart rate 88 /min Yusuf Russell MD Work Phone: [facility] 10-12-2022 08:29-0400 Systolic blood pressure 150 mm[Hg] Yusuf Russell MD Work Phone: [facility] 10-10-2022 10:39-0400 Diastolic blood pressure 58 mm[Hg] Kristen Older THERAPEUTIC RECREATION SPECIALIST.EMISSIONS TECHNICIAN Work Phone: [facility] 10-10-2022 10:39-0400 Systolic blood pressure 118 mm[Hg] Kristen Older THERAPEUTIC RECREATION SPECIALIST.EMISSIONS TECHNICIAN Work Phone: [facility] 10-10-2022 10:05-0400 Body weight 93.89 kg Kristen Older THERAPEUTIC RECREATION SPECIALIST.EMISSIONS TECHNICIAN Work Phone: [facility] 10-10-2022 10:05-0400 Heart rate 90 /min Kristen Older THERAPEUTIC RECREATION SPECIALIST.EMISSIONS TECHNICIAN Work Phone: [facility] 10-10-2022 10:05-0400 Respiratory rate 20 /min Kristen Older THERAPEUTIC RECREATION SPECIALIST.EMISSIONS TECHNICIAN Work Phone: [facility] 10-09-2022 12:14-0400 Diastolic blood pressure 59 mm[Hg] Gloria Calero MD Work Phone: [facility] 10-09-2022 12:14-0400 Heart rate 75 /min Gloria Calero MD Work Phone: [facility] 10-09-2022 12:14-0400 Respiratory rate 18 /min Gloria Calero MD Work Phone: [facility] 10-09-2022 12:14-0400 SaO2% (BldA) [Mass fraction] 96 % Gloria Calero MD Work Phone: [facility] 10-09-2022 12:14-0400 Systolic blood pressure 120 mm[Hg] Gloria Calero MD Work Phone: [facility] 10-09-2022 11:30-0400 Body temperature 97 [degF] Gloria Calero MD Work Phone: [facility] 10-06-2022 07:51-0400 Body temperature 97.5 [degF] Hepatology [address] 10-06-2022 07:51-0400 Body weight 93.67 kg Hepatology [address] 10-06-2022 07:51-0400 Diastolic blood pressure 55 mm[Hg] Hepatology [address] 10-06-2022 07:51-0400 Heart rate 73 /min Hepatology [address] 10-06-2022 07:51-0400 Respiratory rate 16 /min Hepatology [address] 10-06-2022 07:51-0400 SaO2% (BldA) [Mass fraction] 92 % Hepatology [address] 10-06-2022 07:51-0400 Systolic blood pressure 124 mm[Hg] Hepatology [address] 09-19-2022 10:30-0400 Diastolic blood pressure 55 mm[Hg] Maxi Perez MD Work Phone: [facility] 09-19-2022 10:30-0400 Heart rate 69 /min Maxi Perez MD Work Phone: [facility] 09-19-2022 10:30-0400 Respiratory rate 16 /min Maxi Perez MD Work Phone: [facility] 09-19-2022 10:30-0400 SaO2% (BldA) [Mass fraction] 97 % Maxi Perez MD Work Phone: [facility] 09-19-2022 10:30-0400 Systolic blood pressure 101 mm[Hg] Maxi Perez MD Work Phone: [facility] 09-19-2022 09:45-0400 Body temperature 97 [degF] Maxi Perez MD Work Phone: [facility] 09-12-2022 10:05-0400 Body height 174 cm Essence Weston MD Work Phone: [facility] 09-12-2022 10:05-0400 Body temperature 98.1 [degF] Essence Weston MD Work Phone: [facility] 09-12-2022 10:05-0400 Body weight 91.26 kg Essence Weston MD Work Phone: [facility] 09-12-2022 10:05-0400 Diastolic blood pressure 61 mm[Hg] Essence Weston MD Work Phone: [facility] 09-12-2022 10:05-0400 Heart rate 81 /min Essence Weston MD Work Phone: [facility] 09-12-2022 10:05-0400 SaO2% (BldA) [Mass fraction] 93 % Essence Weston MD Work Phone: [facility] 09-12-2022 10:05-0400 Systolic blood pressure 102 mm[Hg] Essence Weston MD Work Phone: [facility] 09-01-2022 11:37-0400 Diastolic blood pressure 50 mm[Hg] Dionte Soria MD Work Phone: [facility] 09-01-2022 11:37-0400 Heart rate 63 /min Dionte Soria MD Work Phone: [facility] 09-01-2022 11:37-0400 SaO2% (BldA) [Mass fraction] 93 % Dionte Soria MD Work Phone: [facility] 09-01-2022 11:37-0400 Systolic blood pressure 100 mm[Hg] Dionte Soria MD Work Phone: [facility] 09-01-2022 10:19-0400 Body temperature 96.8 [degF] Dionte Soria MD Work Phone: [facility] 09-01-2022 10:19-0400 Respiratory rate 16 /min Dionte Soria MD Work Phone: [facility] 08-14-2022 15:29-0500 Diastolic blood pressure 52 mm[Hg] Elias Adler MD Work Phone: [facility] 08-14-2022 15:29-0500 Heart rate 60 /min Elias Adler MD Work Phone: [facility] 08-14-2022 15:29-0500 Respiratory rate 18 /min Elias Adler MD Work Phone: [facility] 08-14-2022 15:29-0500 SaO2% (BldA) [Mass fraction] 95 % Elias Adler MD Work Phone: [facility] 08-14-2022 15:29-0500 Systolic blood pressure 101 mm[Hg] Elias Adler MD Work Phone: [facility] 08-14-2022 14:30-0500 Body temperature 97.5 [degF] Elias Adler MD Work Phone: [facility] 07-27-2022 10:45-0500 Body weight 80.56 kg Hepatology [address] 07-27-2022 10:40-0500 Diastolic blood pressure 55 mm[Hg] Hepatology [address] 07-27-2022 10:40-0500 Heart rate 63 /min Hepatology [address] 07-27-2022 10:40-0500 Respiratory rate 18 /min Hepatology [address] 07-27-2022 10:40-0500 SaO2% (BldA) [Mass fraction] 92 % Hepatology [address] 07-27-2022 10:40-0500 Systolic blood pressure 114 mm[Hg] Hepatology [address] 07-27-2022 09:15-0500 Body height 172.7 cm Hepatology [address] 07-27-2022 09:15-0500 Body temperature 98.1 [degF] Hepatology [address] 07-25-2022 11:55-0500 Diastolic blood pressure 55 mm[Hg] Gloria Calero MD Work Phone: [facility] 07-25-2022 11:55-0500 Heart rate 63 /min Gloria Calero MD Work Phone: [facility] 07-25-2022 11:55-0500 Respiratory rate 16 /min Gloria Calero MD Work Phone: [facility] 07-25-2022 11:55-0500 SaO2% (BldA) [Mass fraction] 92 % Gloria Calero MD Work Phone: [facility] 07-25-2022 11:55-0500 Systolic blood pressure 107 mm[Hg] Gloria Calero MD Work Phone: [facility] 07-25-2022 11:20-0500 Body temperature 96.8 [degF] Gloria Calero MD Work Phone: [facility] 07-17-2022 13:53-0500 Body height 172.7 cm Tevin De La Cruz MD Work Phone: [facility] 07-17-2022 13:53-0500 Body temperature 98.2 [degF] Tevin De La Cruz MD Work Phone: [facility] 07-17-2022 13:53-0500 Body weight 83.55 kg Tevin De La Cruz MD Work Phone: [facility] 07-17-2022 13:53-0500 Diastolic blood pressure 51 mm[Hg] Tevin De La Cruz MD Work Phone: [facility] 07-17-2022 13:53-0500 Heart rate 60 /min Tevin De La Cruz MD Work Phone: [facility] 07-17-2022 13:53-0500 SaO2% (BldA) [Mass fraction] 92 % Tevin De La Cruz MD Work Phone: [facility] 07-17-2022 13:53-0500 Systolic blood pressure 120 mm[Hg] Tevin De La Cruz MD Work Phone: [facility] 07-17-2022 10:12-0500 Diastolic blood pressure 46 mm[Hg] Angio 1 Work Phone: [facility] 07-17-2022 10:12-0500 Heart rate 62 /min Angio 1 Work Phone: [facility] 07-17-2022 10:12-0500 SaO2% (BldA) [Mass fraction] 98 % Angio 1 Work Phone: [facility] 07-17-2022 10:12-0500 Systolic blood pressure 110 mm[Hg] Angio 1 Work Phone: [facility] 07-14-2022 11:00-0500 Body temperature 97.39 [degF] Willem Madsen MD Work Phone: [facility] 07-14-2022 11:00-0500 Body weight 82.1 kg Willem Madsen MD Work Phone: [facility] 07-14-2022 11:00-0500 Diastolic blood pressure 66 mm[Hg] Willem Madsen MD Work Phone: [facility] 07-14-2022 11:00-0500 Heart rate 72 /min Willem Madsen MD Work Phone: [facility] 07-14-2022 11:00-0500 Systolic blood pressure 104 mm[Hg] Willem Madsen MD Work Phone: [facility] 06-23-2022 09:19-0500 Body height 172.7 cm Tevin De La Cruz MD Work Phone: [facility] 06-23-2022 09:19-0500 Body temperature 97.59 [degF] Tevin De La Cruz MD Work Phone: [facility] 06-23-2022 09:19-0500 Body weight 81.38 kg Tevin De La Cruz MD Work Phone: [facility] 06-23-2022 09:19-0500 Diastolic blood pressure 49 mm[Hg] Tevin De La Cruz MD Work Phone: [facility] 06-23-2022 09:19-0500 Heart rate 65 /min Tevin De La Cruz MD Work Phone: [facility] 06-23-2022 09:19-0500 SaO2% (BldA) [Mass fraction] 92 % Tevin De La Cruz MD Work Phone: [facility] 06-23-2022 09:19-0500 Systolic blood pressure 106 mm[Hg] Tevin De La Cruz MD Work Phone: [facility] 06-01-2022 11:22-0500 Body height 172.7 cm Quan Tafoya Jr., MD Work Phone: [facility] 06-01-2022 11:22-0500 Body weight 86.18 kg Quan Tafoya Jr., MD Work Phone: [facility] 06-01-2022 11:22-0500 Diastolic blood pressure 60 mm[Hg] Quan Tafoya Jr., MD Work Phone: [facility] 06-01-2022 11:22-0500 Systolic blood pressure 116 mm[Hg] Quan Tafoya Jr., MD Work Phone: [facility] 05-22-2022 09:47-0500 Body height 172.[address] Willem Madsen Work Phone: [facility] Work Phone: 05-22-2022 09:47-0500 Body mass index (BMI) [Ratio] 31.4 kg/m2 Dr. Willem Madsen Work Phone: [facility] Work Phone: 05-22-2022 09:47-0500 Body weight 93.[address] Willem Madsen Work Phone: [facility] Work Phone: 05-22-2022 09:47-0500 Diastolic blood pressure 67 mm[Hg] Dr. Willem Madsen Work Phone: [facility] Work Phone: 05-22-2022 09:47-0500 Heart rate 70 /min Dr. Willem Madsen Work Phone: [facility] Work Phone: 05-22-2022 09:47-0500 Respiratory rate 18 /min Dr. Willem Madsen Work Phone: [facility] Work Phone: 05-22-2022 09:47-0500 SaO2% (BldA) [Mass fraction] 98 % Dr. Willem Madsen Work Phone: [facility] Work Phone: 05-22-2022 09:47-0500 Systolic blood pressure 117 mm[Hg] Dr. Willem Madsen Work Phone: [facility] Work Phone: 03-30-2022 09:40-0400 Body weight 92.4 kg Hepatology [address] 03-30-2022 09:40-0400 Heart rate 70 /min Hepatology [address] 03-30-2022 09:40-0400 Respiratory rate 16 /min Hepatology [address] 03-30-2022 09:40-0400 SaO2% (BldA) [Mass fraction] 95 % Hepatology [address] 03-30-2022 09:30-0400 Diastolic blood pressure 73 mm[Hg] Hepatology [address] 03-30-2022 09:30-0400 Systolic blood pressure 134 mm[Hg] Hepatology [address] 03-30-2022 07:32-0400 Body height 172.7 cm Hepatology [address] 03-30-2022 07:32-0400 Body temperature 97.7 [degF] Hepatology [address] 03-23-2022 08:44-0400 Body mass index (BMI) [Ratio] 32.7 kg/m2 Dr. Willem Madsen Work Phone: [facility] Work Phone: 03-23-2022 08:44-0400 Body temperature 97.4 [degF] Dr. Willem Madsen Work Phone: [facility] Work Phone: 03-23-2022 08:44-0400 Body weight 97.[address] Willem Madsen Work Phone: [facility] Work Phone: 03-23-2022 08:44-0400 Diastolic blood pressure 57 mm[Hg] Dr. Willem Madsen Work Phone: [facility] Work Phone: 03-23-2022 08:44-0400 Heart rate 64 /min Dr. Willem Madsen Work Phone: [facility] Work Phone: 03-23-2022 08:44-0400 Respiratory rate 18 /min Dr. Willem Madsen Work Phone: [facility] Work Phone: 03-23-2022 08:44-0400 SaO2% (BldA) [Mass fraction] 88 % Dr. Willem Madsen Work Phone: [facility] Work Phone: 03-23-2022 08:44-0400 Systolic blood pressure 114 mm[Hg] Dr. Willem Madsen Work Phone: [facility] Work Phone: 01-11-2022 10:02-0400 Body height 172.7 cm Willem Madsen MD Work Phone: [facility] 01-11-2022 10:02-0400 Body temperature 96.3 [degF] Willem Madsen MD Work Phone: [facility] 01-11-2022 10:02-0400 Body weight 94.8 kg Willem Madsen MD Work Phone: [facility] 01-11-2022 10:02-0400 Diastolic blood pressure 58 mm[Hg] Willem Madsen MD Work Phone: [facility] 01-11-2022 10:02-0400 Heart rate 52 /min Willem Madsen MD Work Phone: [facility] 01-11-2022 10:02-0400 Respiratory rate 12 /min Willem Madsen MD Work Phone: [facility] 01-11-2022 10:02-0400 Systolic blood pressure 120 mm[Hg] Willem Madsen MD Work Phone: [facility] 01-05-2022 14:10-0400 Heart rate 57 /min Tevin De La Cruz MD Work Phone: [facility] 01-05-2022 14:10-0400 SaO2% (BldA) [Mass fraction] 97 % Tevin De La Cruz MD Work Phone: [facility] 01-05-2022 14:00-0400 Diastolic blood pressure 63 mm[Hg] Tevin De La Cruz MD Work Phone: [facility] 01-05-2022 14:00-0400 Respiratory rate 16 /min Tevin De La Cruz MD Work Phone: [facility] 01-05-2022 14:00-0400 Systolic blood pressure 131 mm[Hg] Tevin De La Cruz MD Work Phone: [facility] 01-05-2022 12:38-0400 Body height 172.7 cm Tevin De La Cruz MD Work Phone: [facility] 01-05-2022 12:38-0400 Body temperature 97.5 [degF] Tevin De La Cruz MD Work Phone: [facility] 01-05-2022 12:38-0400 Body weight 90.72 kg Tevin De La Cruz MD Work Phone: [facility] 11-29-2021 10:57-0400 Body height 174 cm Tevin De La Cruz MD Work Phone: [facility] 11-29-2021 10:57-0400 Body temperature 96.8 [degF] Tevin De La Cruz MD Work Phone: [facility] 11-29-2021 10:57-0400 Body weight 94.8 kg Tevin De La Cruz MD Work Phone: [facility] 11-29-2021 10:57-0400 Diastolic blood pressure 54 mm[Hg] Tevin De La Cruz MD Work Phone: [facility] 11-29-2021 10:57-0400 Heart rate 53 /min Tevin De La Cruz MD Work Phone: [facility] 11-29-2021 10:57-0400 SaO2% (BldA) [Mass fraction] 99 % Tevin De La Cruz MD Work Phone: [facility] 11-29-2021 10:57-0400 Systolic blood pressure 127 mm[Hg] Tevin De La Cruz MD Work Phone: [facility] 11-24-2021 15:08-0400 Body height 174 cm Quan Tafoya Jr., MD Work Phone: [facility] 11-24-2021 15:08-0400 Body weight 90.72 kg Quan Tafoya Jr., MD Work Phone: [facility] 11-24-2021 15:08-0400 Diastolic blood pressure 70 mm[Hg] Quan Tafoya Jr., MD Work Phone: [facility] 11-24-2021 15:08-0400 Systolic blood pressure 122 mm[Hg] Quan Tafoya Jr., MD Work Phone: [facility] Encounters Encounter Date Encounter Type Care Provider Facility Start: 04-22-2025 ambulatory Willem Madsen Facili ty:[facility] Start: 04-20-2025 ambulatory Willem Madsen Facili ty:[facility] Start: 04-17-2025 ambulatory Willem Madsen Facili ty:[facility] Start: 04-13-2025 End: 04-13-2025 ambulatory YADI MADSEN Facility:[facility] Start: 04-10-2025 End: 04-10-2025 ambulatory Willem Madsen Facility:[facility] Start: 04-09-2025 ambulatory YADI MADSEN Faci lity:[facility] Start: 04-09-2025 End: 04-09-2025 ambulatory YADI MADSEN Facility:[facility] Start: 04-07-2025 Encounter for genera l adult medical examination without abnormal findings Demetrius Goldberg [facility] Start: 03-25-2025 End: 03-25-2025 ambulatory Demetrius Yusuf Facility:[facility] Start: 03-23-2025 End: 03-23-2025 ambulatory WILLEM Pretty MADSEN Facility:[facility] Start: 03-23-2025 End: 03-23-2025 ambulatory YADI MADSEN Facility:[facility] Start: 03-11-2025 End: 03-13-2025 ambulatory YADI MADSEN [facility] Start: 03-10-2025 End: 03-10-2025 ambulatory YADI MADSEN Facility:[facility] Start: 02-13-2025 End: 02-13-2025 Refill Florence Lobato APRN.CNP Work Phone: [facility] Comment on above: Refill Request Start: 02-12-2025 ambulatory YADI MADSEN Faci lity:[facility] Start: 02-12-2025 End: 02-12-2025 Subsequent hospital visit by physician Ladarius Uriarte MD Work Phone: Gastroenterology Comment on above: Screen for colon can cer [Z12.11] Start: 02-10-2025 End: 02-10-2025 ambulatory YADI MADSEN Facility:[facility] Start: 02-06-2025 End: 02-06-2025 ambulatory YADI MADSEN Facility:[facility] Start: 02-06-2025 End: 02-06-2025 Patient encounter procedure Willem Madsen MD Work Phone: [facility] [place] Comment on above: Medicare annual well ness visit, subsequent (Primary Dx); Chronic diastolic congestive heart failure (HCC); Screening for depression; Encounter for screening examination for other mental health and behavioral disorders; Primary hypertension; Coronary artery 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 artery of [place] heart without angina pectoris; Mixed hyperlipidemia; Right-sided heart failure, unspecified HF chronicity (HCC); Obesity, Class I, BMI 30-34.9; Prediabetes Start: 02-05-2025 End: 02-05-2025 ambulatory Zaida Mcwilliams RNgrade checker Start: 01-23-2025 End: 01-23-2025 [facility] Start: 01-23-2025 End: 01-23-2025 Anesthesia consultation [facility] Comment on above: VANESSA (obstructive sle ep apnea) (Primary Dx); Obesity, Class I, BMI 30-34.9; Coronary artery 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 artery of [place] heart without angina pectoris; Chronic diastolic congestive heart failure (HCC); Right-sided heart failure, unspecified HF chronicity (HCC); Primary hypertension; Mixed hyperlipidemia; History of cirrhosis; Liver transplant recipient (HCC); Immunosuppression (HCC); Stage 3a chronic kidney disease (HCC) Start: 01-23-2025 End: 01-23-2025 ambulatory WILLEM MADSEN Facility:[facility] Start: 01-12-2025 End: 01-12-2025 Orders Vilma Glass RN [facility] Comment on above: Liver transplanted ( HCC) (Primary Dx) Start: 01-06-2025 End: 01-06-2025 Patient encounter procedure Danita Driver APRN.CNP Work Phone: General Surgery Comment on above: Screen for colon can cer (Primary Dx); History of colonic polyps Start: 01-06-2025 End: 01-06-2025 ambulatory WILLEM MADSEN Facility:[facility] Start: 01-05-2025 End: 01-05-2025 Patient encounter procedure Demetrius Goldberg MD Work Phone: Cardiology Comment on above: Coronary artery dise ase involving [place] coronary artery of [place] heart without angina pectoris (Primary Dx); Chronic diastolic congestive heart failure (HCC); Primary hypertension; Mixed hyperlipidemia; Chronic right-sided heart failure (HCC) Start: 01-05-2025 End: 01-05-2025 ambulatory YADI MADSEN Facility:[facility] Start: 12-08-2024 End: 02-07-2025 Follow-up encounter Pily Glass RN [facility] Start: 12-08-2024 End: 12-08-2024 ambulatory YADI TENA Facility:[facility] Start: 11-20-2024 End: 11-20-2024 Refill Florence Lobato THERAPEUTIC RECREATION SPECIALIST.EMISSIONS TECHNICIAN Work Phone: [facility] Comment on above: Refill Request Start: 11-11-2024 End: 11-12-2024 Refill Florence Lobato THERAPEUTIC RECREATION SPECIALIST.EMISSIONS TECHNICIAN Work Phone: [facility] Comment on above: Refill Request Start: 11-10-2024 End: 01-10-2025 Follow-up encounter Pily Glass RN [facility] Start: 11-10-2024 End: 11-10-2024 ambulatory YADI TENA Facility:[facility] Start: 10-06-2024 End: 12-06-2024 Follow-up encounter Pily Glass RN [facility] Start: 10-06-2024 End: 10-06-2024 ambulatory WILLEM MADSEN Facility:[facility] Start: 09-08-2024 End: 11-08-2024 Follow-up encounter Pily Glass RN [facility] Start: 09-08-2024 End: 09-08-2024 ambulatory YADI TENA Facility:[facility] Start: 08-27-2024 End: 08-27-2024 Refill Abisai Mcclelland THERAPEUTIC RECREATION SPECIALIST.EMISSIONS TECHNICIAN Work Phone: [facility] Comment on above: Refill Request Start: 08-12-2024 End: 08-12-2024 Telephone encounter Demetrius Goldberg MD Work Phone: [facility] Comment on above: Marketing Project Manager - O ther Start: 08-11-2024 End: 10-11-2024 Orders Only Pily Glass RN [facility] Comment on above: Liver replaced by tr ansplant (HCC) (Primary Dx) Start: 08-08-2024 End: 08-08-2024 ambulatory YADI MADSEN Facility:[facility] Start: 08-08-2024 End: 08-08-2024 Office outpatient visit 15 minutes Willem Madsen MD Work Phone: [facility] [place] Comment on above: Osteopenia of multip le sites (Primary Dx); Mixed hyperlipidemia; Primary hypertension; Stage 3a chronic kidney disease (HCC); Liver transplant recipient (HCC) Start: 07-28-2024 End: 08-01-2024 Refill Florence Lobato THERAPEUTIC RECREATION SPECIALIST.EMISSIONS TECHNICIAN Work Phone: [facility] Comment on above: Refill Request Start: 07-23-2024 End: 07-23-2024 Orders Only Abisai Mcclelland THERAPEUTIC RECREATION SPECIALIST.EMISSIONS TECHNICIAN Work Phone: [facility] Comment on above: Refill Request Start: 07-14-2024 End: 07-14-2024 ambulatory WILLEM MADSEN Facility:[facility] Start: 07-08-2024 End: 07-08-2024 Patient encounter procedure Demetrius Goldberg MD Work Phone: [facility] Cardiology [place] Comment on above: Coronary artery dise ase involving [place] coronary artery of [place] heart without angina pectoris (Primary Dx); Chronic diastolic congestive heart failure (HCC); Primary hypertension; Mixed hyperlipidemia Start: 07-08-2024 End: 07-08-2024 ambulatory DEMETRIUS GOLDBERG Facility:[facility] Start: 06-12-2024 End: 06-12-2024 ambulatory WILLEM MADSEN Facility:[facility] Start: 06-02-2024 End: 06-03-2024 ambulatory Demetrius Goldberg MD Work Phone: Cardiology Comment on above: Cholesterol test Start: 05-28-2024 End: 05-28-2024 Refill Willem Madsen MD Work Phone: Internal Medicine [place] Comment on above: Refill Request Start: 05-26-2024 End: 05-26-2024 Refill Hussein [facility]herence [facility] ng Comment on above: Refill Request Start: 05-23-2024 End: 05-23-2024 ambulatory Rocio Urirate RN Work Phone: [employer] Management Comment on above: community monitoring outreach (CDM outreach call) Start: 05-12-2024 End: 05-12-2024 ambulatory WILLEM MADSEN Facility:[facility] Start: 05-03-2024 End: 05-05-2024 Refill Florence Lobato APRN.EMISSIONS TECHNICIAN Work Phone: Transplant Center Comment on above: Refill Request Start: 04-29-2024 End: 04-29-2024 ambulatory Willem Madsen Facility:[facility] Start: 04-28-2024 End: 04-28-2024 Orders Only Pily Glass RN Transplant Center Comment on above: Liver transplanted ( HCC) (Primary Dx) Start: 04-23-2024 End: 04-23-2024 Refill Abisai Mcclelland APRN.EMISSIONS TECHNICIAN Work Phone: RX Adherence Packaging Comment on above: Refill Request Start: 04-14-2024 End: 04-14-2024 Patient encounter procedure Abisai Mcclelland APRN.EMISSIONS TECHNICIAN Work Phone: Transplant Center Comment on above: Liver transplanted ( HCC) (Primary Dx); Immunosuppressed status (HCC); Non-melanoma skin cancer; History of cigar smoking Start: 04-12-2024 End: 04-12-2024 ambulatory Rocio Uriarte RN Work Phone: [employer] Management Comment on above: community monitoring outreach (Monthly cdm call) Start: 03-28-2024 End: 03-28-2024 ambulatory [facility] Nurse Sheppard Work Phone: Family Medicine [place] Start: 03-28-2024 End: 03-28-2024 Patient encounter procedure Immunization Clinic Nurse Sheppard Work Phone: Family Medicine [place] Start: 03-20-2024 End: 03-20-2024 Nursing evaluation of patient and report Mi Nurse Work Phone: [facility] Medicine [place] Comment on above: Encounter for immuni zation Start: 03-12-2024 End: 03-12-2024 Orders Only Liver Txp Coordinator Work Phone: Transplant Center Comment on above: Liver transplanted ( HCC) (Primary Dx) Start: 02-18-2024 End: 02-18-2024 ambulatory Rocio Uriarte RN Work Phone: [employer]ographer Management Comment on above: community monitoring outreach (CDM outreach call) Start: 02-08-2024 End: 02-08-2024 Patient encounter procedure Willem Madsen MD Work Phone: Internal Medicine [place] Comment on above: Medicare annual well ness visit, subsequent (Primary Dx); Basal cell carcinoma of multiple sites of head and neck; Screening for depression; Encounter for screening examination for other mental health and behavioral disorders; Chronic diastolic congestive heart failure (HCC); Primary hypertension; Coronary artery 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 artery of [place] heart without angina pectoris; Edema of both legs; Prediabetes; 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); Stage 3 chronic kidney disease, unspecified whether stage 3a or 3b CKD (HCC) Start: 02-06-2024 End: 02-07-2024 Refill Abisai Mcclelland THERAPEUTIC RECREATION SPECIALIST.EMISSIONS TECHNICIAN Work Phone: Transplant Center Comment on above: Refill Request Start: 02-05-2024 End: 02-05-2024 Refill Hussein [facility]herence [facility] ng Comment on above: Refill Request Start: 12-24-2023 ambulatory Florence herman RN Work Phone: [employer] Management Comment on above: community monitoring outreach (CDM outreach telephonic/) Start: 12-19-2023 Orders Only Liver Txp Coor dinator Work Phone: Transplant Center Comment on above: Liver transplanted ( HCC) (Primary Dx) Start: 11-30-2023 Refill Abisai Priest s THERAPEUTIC RECREATION SPECIALIST.EMISSIONS TECHNICIAN Work Phone: [id number] Comment on above: Refill Request Start: 11-30-2023 Refill Demetrius mejía MD Work Phone: [facility] Cardiology [place] Comment on above: Refill Request Start: 11-15-2023 Refill Abisai Priest s THERAPEUTIC RECREATION SPECIALIST.EMISSIONS TECHNICIAN Work Phone: Transplant Center Comment on above: Refill Request Start: 11-07-2023 Refill Abisai pulliam THERAPEUTIC RECREATION SPECIALIST.EMISSIONS TECHNICIAN Work Phone: [id number] Comment on above: Refill Request Start: 10-29-2023 ambulatory Florence herman RN Work Phone: [employer] Management Comment on above: community monitoring outreach (CDM outreach telephonic/) Start: 10-08-2023 End: 10-08-2023 Patient encounter procedure Abisai Mcclelland APRN.EMISSIONS TECHNICIAN Work Phone: Transplant Center Comment on above: Liver transplanted ( HCC) (Primary Dx); Immunosuppressed status (HCC) Start: 10-01-2023 End: 10-01-2023 Patient encounter procedure Demetrius Goldberg MD Work Phone: Cardiology Comment on above: Coronary artery dise ase involving [place] coronary artery of [place] heart without angina pectoris (Primary Dx); Chronic diastolic congestive heart failure (HCC); Primary hypertension; Mixed hyperlipidemia Start: 09-17-2023 Orders Only Demetrius mejía MD Work Phone: Cardiology Comment on above: Mixed hyperlipidemia (Primary Dx); Coronary arteriosclerosis in [place] artery Start: 09-12-2023 Refill Abisai pulliam APRN.EMISSIONS TECHNICIAN Work Phone: [id number] Comment on above: Refill Request Start: 08-30-2023 ambulatory Florence herman RN Work Phone: [employer] Management Comment on above: community monitoring outreach (CDM outreach telephonic/) Start: 08-21-2023 Telephone encounter Katerine Wallace ( [facility] Start: 08-15-2023 Refill Marco Short MD Work Phone: Transplant Center Comment on above: Refill Request Start: 08-13-2023 End: 08-13-2023 Refill Pily Glass RN Transplant Center Comment on above: Liver transplant rec ipient (HCC) (Primary Dx); Chronic diastolic congestive heart failure (HCC); Coronary arteriosclerosis in [place] artery; Primary hypertension Start: 08-02-2023 Refill Liver Txp Coor dinator Work Phone: Transplant Center Start: 01-25-2024 Telephone encounter Demetrius Goldberg MD Work Phone: [facility] [place] Comment on above: Marketing Project Manager - O ther Start: 05-24-2023 Refill Demetrius mejía MD Work Phone: [facility] Cardiology [place] Comment on above: Med Change Request Start: 05-14-2023 ambulatory Florence herman RN Work Phone: [employer] Management Comment on above: community monitoring outreach (CDM outreach telephonic/) Start: 05-04-2023 Telephone encounter Liver Txp Coordinator Work Phone: Transplant Center Comment on above: Medication Dosage Ad justment (FK dropped to 3mg BID. ) Start: 05-01-2023 Telephone encounter Dior Cr RN Work Phone: [facility] Comment on above: Home Care (FYI: He h as progressed well towards his nursing goals. He expresses he has an understanding of his continued care regarding his transplant including labs as directed taking med's as directed ability to identify possible transplant rejection and when to contact the transplant team. Pt expresses a desire for discharge from Home care today. he has been given his discharge instructions and express understanding./) Start: 05-01-2023 End: 05-01-2023 Home visit Dior Cr RN Work Phone: [facility] Comment on above: SN AGENCY DC W VISIT Start: 04-27-2023 Orders Only Liver Txp Coor dinator Work Phone: Transplant Center Comment on above: Liver transplant rec ipient (HCC) (Primary Dx); Asymptomatic human immunodeficiency virus (hiv) infection status (HCC) Start: 04-26-2023 End: 04-26-2023 Home visit Dior Cr RN Work Phone: [facility] Comment on above: SN ROUTINE Start: 04-25-2023 Chart abstracting Florence dickens APRN.EMISSIONS TECHNICIAN Work Phone: Transplant Center Comment on above: Pathology review Start: 04-25-2023 End: 04-25-2023 Patient encounter procedure Dex Oneill MD Work Phone: Transplant Center Comment on above: Liver transplant rec ipient (HCC) (Primary Dx); DURANT (nonalcoholic steatohepatitis); Stage 3 chronic kidney disease, unspecified whether stage 3a or 3b CKD (HCC); Immunosuppression (HCC); H/O prostatectomy; Nonalcoholic fatty liver disease without nonalcoholic steatohepatitis (DURANT) Start: 04-18-2023 End: 04-18-2023 Office outpatient visit 40 minutes Marco Short MD Work Phone: Transplant Center Comment on above: Liver replaced by tr ansplant (HCC) (Primary Dx); Unspecified severe protein-calorie malnutrition (HCC) Start: 04-17-2023 Orders Only Tevin arambula MD Work Phone: Gastroenterology Start: 04-16-2023 End: 04-16-2023 Patient encounter procedure Demetrius Goldberg MD Work Phone: Cardiology Comment on above: Coronary arterioscle rosis in [place] artery (Primary Dx); Chronic diastolic congestive heart failure (HCC); Mixed hyperlipidemia Start: 04-14-2023 End: 04-14-2023 Home visit Radha Luque PT Work Phone: [facility] Comment on above: PT EVAL Start: 04-13-2023 End: 04-13-2023 Home visit Dior Cr RN Work Phone: [facility] Comment on above: SN ROUTINE Start: 04-10-2023 Orders Only Liver Txp Coor dinator Work Phone: Transplant Center Comment on above: Liver replaced by tr ansplant (HCC) (Primary Dx) Start: 04-09-2023 End: 04-09-2023 Home visit Cynthia Freitas RN Work Phone: [facility] Comment on above: SN SOC Start: 04-05-2023 Telephone encounter Otilia rajput [facility] Comment on above: Home Care (Confirmat ion Call) Start: 04-02-2023 Chart abstracting Niki Madera RN [facility] Comment on above: Transplant Serologie s Start: 03-31-2023 Telephone encounter Bao Castle) Tim singh RNdessert cup machine feeder Center Comment on above: Organ Offer Start: 03-19-2023 ambulatory [facility] Start: 03-12-2023 End: 03-12-2023 Nursing evaluation of patient and report Mi Nurse Work Phone: Family Medicine [place] Comment on above: Need for vaccination (Primary Dx); Need for influenza vaccination Start: 03-09-2023 Telephone encounter Edda Franks Admitting Start: 03-09-2023 End: 03-09-2023 Subsequent hospital visit by physician Maxi Perez MD Work Phone: Admitting Comment on above: 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] Start: 02-22-2023 Refill Tevin arambula MD Work Phone: Gastroenterology Comment on above: Refill Request Start: 02-16-2023 End: 02-16-2023 Subsequent hospital visit by physician Dionte Soria MD Work Phone: Admitting Comment on above: 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] Start: 02-14-2023 Refill Tevin arambula MD Work Phone: Gastroenterology Comment on above: Refill Request Start: 02-08-2023 Telephone encounter Liver Txp Coordinator Work Phone: Transplant Center Comment on above: Appointment; Returni ng Patient's Call Start: 02-07-2023 End: 02-07-2023 Patient encounter procedure Willem Madsen MD Work Phone: Internal Medicine [place] Comment on above: Medicare annual well ness visit, subsequent (Primary Dx); Transient diplopia; Hyperglycemia; Stage 3a chronic kidney disease (HCC); Nonalcoholic fatty liver disease without nonalcoholic steatohepatitis (DURANT); 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); Platelets decreased (HCC); Need for vaccination Start: 02-06-2023 Telephone encounter Abhilash garcia MD Work Phone: Radiology Comment on above: Appointment Start: 02-03-2023 ambulatory Tevin arambula MD Work Phone: Gastroenterology Comment on above: Paracentis Start: 02-02-2023 End: 02-02-2023 Subsequent hospital visit by physician Duran Mcneil MD Work Phone: Admitting Comment on above: 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] Start: 01-29-2023 ambulatory Tevin arambula MD Work Phone: Gastroenterology Comment on above: Diuretics Refill Request Start: 01-25-2023 Refill Tevin arambula MD Work Phone: Gastroenterology Comment on above: Refill Request Start: 01-23-2023 Telephone encounter Donya Mistry [facility] Comment on above: Follow Up; Returning Patient's Call OLT SALEEM nix pt notification Start: 01-23-2023 End: 01-23-2023 Subsequent hospital visit by physician Holly Shell MD Work Phone: Admitting Comment on above: 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] Start: 01-19-2023 ambulatory WILLEM Raya lity:[facility] Start: 01-19-2023 Encounter for other preprocedural examination [facility] Start: 01-19-2023 Telephone encounter Tevin Seth MD Work Phone: Gastroenterology Comment on above: Patient Question Start: 01-19-2023 End: 01-19-2023 Patient encounter status Us 2 [facility] Phone[facility] Start: 01-19-2023 End: 01-19-2023 Subsequent hospital visit by physician [facility] 2 Work Phone: Radiology Comment on above: Liver cirrhosis seco ndary to DURATN (HCC) [K75.81, K74.60] Start: 01-18-2023 Telephone encounter Krissy Horn RN Transplant Center Comment on above: OLT selection mtg pt update Start: 01-16-2023 ambulatory Florence herman RN Work Phone: [employer] Management Comment on above: community monitoring outreach (CDM outreach telephonic/) Start: 01-11-2023 Telephone encounter Kentrell Harden [facility] Admitting Comment on above: Appointment Start: 01-11-2023 End: 01-11-2023 Subsequent hospital visit by physician Gloria Calero MD Work Phone: Admitting Comment on above: 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] Start: 01-10-2023 End: 01-10-2023 Follow-up encounter Emerson Chavez MD Work Phone: Cardiology Comment on above: Encounter for follow -up (Primary Dx) Start: 01-10-2023 End: 01-10-2023 Telemedicine consultation with patient Emerson Chavez MD Work Phone: [facility] Start: 2023 ambulatory UNKNOWN PROVIDER Facili ty:[facility] Start: 2023 End: 2023 Subsequent hospital visit by physician [facility] 2 Work Phone: Radiology Comment on above: S/P TIPS (transjugul ar intrahepatic portosystemic shunt) [Z95.828] Start: 01-07-2023 Telephone encounter Ray Driscoll ot, MD Work Phone: Cardiology Comment on above: Patient Education Start: 12-22-2022 End: 12-22-2022 Orders Only Dani Ross MD Work Phone: Pulmonary Medicine Comment on above: S/P thoracentesis (P rimary Dx) 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] S/P thoracentesis [Z 98.890] Start: 12-21-2022 Telephone encounter Krissy Horn RN Transplant Center Comment on above: dermatology clearanc e Start: 12-19-2022 End: 12-19-2022 ambulatory Emerson Chavez MD Work Phone: Cardiology Comment on above: Preop cardiovascular exam (Primary Dx) Start: 12-19-2022 End: 12-19-2022 Patient encounter status Emerson Chavez MD Work Phone: [facility] Work Phone: Start: 12-19-2022 End: 12-19-2022 Telemedicine consultation with patient Emerson Chavez MD Work Phone: [facility] Start: 12-18-2022 ambulatory Florence herman RN Work Phone: [employer]ographer Management Comment on above: community monitoring outreach (CDM outreach telephonic/) Start: 12-14-2022 Telephone encounter Emerson lópez MD Work Phone: Cardiology Comment on above: Patient Update (Romano ge Appt to 12/19 virtual) Start: 12-11-2022 Refill Tevin arambula MD Work Phone: Gastroenterology Comment on above: Refill Request Start: 11-29-2022 MC Get Medical Advice Tevin De La Cruz MD Work Phone: Gastroenterology Comment on above: Blood work completed Start: 11-23-2022 End: 11-23-2022 Subsequent hospital visit by physician Gloria Calero MD Work Phone: Admitting Comment on above: 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] Start: 11-15-2022 End: 11-15-2022 ambulatory Tevin De La Cruz MD Work Phone: Gastroenterology Comment on above: Liver cirrhosis seco ndary to DURANT (HCC) (Primary Dx); S/P TIPS (transjugular intrahepatic portosystemic shunt); Portal hypertension with esophageal varices (HCC) Start: 11-15-2022 End: 11-15-2022 Telemedicine consultation with patient Tevin De La Cruz MD Work Phone: [facility] Start: 11-13-2022 End: 11-13-2022 Subsequent hospital visit by physician Holly Shell MD Work Phone: Admitting Comment on above: 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] Start: 11-10-2022 End: 11-10-2022 Subsequent hospital visit by physician Hepatology Procedures Q3 Gastroenterology Comment on above: Other cirrhosis of l iver (HCC) [K74.69] Start: 11-09-2022 Telephone encounter Tevin Seth MD Work Phone: Gastroenterology Comment on above: Medication Problem Start: 10-31-2022 Telephone encounter Abhilash garcia MD Work Phone: Radiology Comment on above: Appointment Start: 10-26-2022 ambulatory WILLEM Raya [facility] Start: 10-23-2022 Telephone encounter Kentrell Pretty [facility] Admitting Comment on above: Appointment; Care Co ordinator - Other Start: 10-20-2022 Telephone encounter Tevin Seth MD Work Phone: Gastroenterology Comment on above: Patient Update Patient Question - P aracentesis Start: 10-19-2022 Refill Tevin arambula MD Work Phone: Gastroenterology Comment on above: Med Change Request Start: 10-19-2022 Telephone encounter Kentrell Pretty [facility] Admitting Comment on above: Appointment; Care Co ordinator - Other Start: 10-18-2022 ambulatory Tevin arambula MD Work Phone: Gastroenterology Comment on above: labs Start: 10-18-2022 E-mail encounter fro m caregiver Tevin De La Cruz MD Work Phone: [facility] Start: 10-18-2022 End: 10-18-2022 Patient encounter status Matt Lopez MD Work Phone: Infectious Disease Start: 10-18-2022 Telephone encounter Krissy Horn RN Transplant Center Comment on above: Patient Education Start: 10-18-2022 End: 10-18-2022 Subsequent hospital visit by physician Ct 2 Main Qb (I-Stat) Radiology Comment on above: Liver transplant can didate [Z76.82] Start: 10-18-2022 End: 10-18-2022 Patient encounter procedure [facility] Work Phone: Transplant Center Comment on above: Liver transplant can didate (Primary Dx); DURANT (nonalcoholic steatohepatitis); Coronary artery 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 artery of [place] heart without angina pectoris; Stage 3a chronic kidney disease (HCC); VANESSA (obstructive sleep apnea) Encounter for medica tion review and counseling Liver transplant can didate [Z76.82 (ICD-10-CM)] (Primary Dx); DURANT (nonalcoholic steatohepatitis) [K75.81 (ICD-10-CM)]; 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)]; Other ascites [R18.8 (ICD-10-CM)] Pre-transplant evalu ation for liver transplant (Primary Dx) Start: 10-17-2022 Telephone encounter Krissy Horn RN Transplant Center Comment on above: Dental Clearance - T ransplant Start: 10-16-2022 End: 10-16-2022 ambulatory Pulm [facility]ct [facility] Main 2 Work Phone: Pulmonary Medicine Comment on above: Spirometry Start: 10-16-2022 End: 10-16-2022 Patient encounter procedure Pulm [facility]ct [facility] Main 2 Work Phone: [facility] Start: 10-16-2022 End: 10-16-2022 Social Work Ervin RODRIGUEZ Work Phone: Transplant Center Start: 10-13-2022 End: 10-13-2022 ambulatory Liver Txp Coordinator Work Phone: Transplant Center Comment on above: Encounter for educat ion (Primary Dx) Start: 10-13-2022 End: 10-13-2022 Telemedicine consultation with patient Liver Txp Coordinator Work Phone: [facility] Start: 10-12-2022 Telephone encounter Liver Txp Coordinator Work Phone: Transplant Center Comment on above: Reminder Call OLT Ev al Appt's Start: 10-12-2022 End: 10-12-2022 Patient encounter procedure Yusuf Russell MD Work Phone: General Surgery Comment on above: Right inguinal herni a Start: 10-10-2022 End: 10-10-2022 Patient encounter procedure Kristen Aviles APRN.EMISSIONS TECHNICIAN Work Phone: Internal Medicine [place] Comment on above: Bilateral lower extr emity edema (Primary Dx); Abnormal x-ray Start: 10-09-2022 End: 10-09-2022 Orders Only Arsalan Dawkins MD Work Phone: Pulmonary Medicine Comment on above: Pleural effusion (Pr imary Dx) Patient Question 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] Start: 10-06-2022 End: 10-06-2022 Refill Kristen Aviles APRN.CNP Work Phone: Internal Medicine [place] Comment on above: Refill Request Blood Work on 3 Other cirrhosis of l iver (HCC) [K74.69] Start: 10-04-2022 End: 10-04-2022 Nursing evaluation of patient and report Mi Nurse Work Phone: Family Medicine [place] Comment on above: Need for vaccination (Primary Dx); 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) Start: 10-03-2022 ambulatory Florence herman RN Work Phone: [employer] Management Comment on above: community monitoring outreach (CDM outreach telephonic/) Other ascites (Prima ry Dx) Start: 10-03-2022 Telephone encounter Jenise Pearce RN Transplant Center Comment on above: Referral - Liver Txp (Intake) Start: 10-03-2022 End: 10-03-2022 Subsequent hospital visit by physician H[facility]ctor [facility] [place] Work Phone: Radiology Comment on above: Pleural effusion ass ociated with hepatic disorder [K76.9, J91.8] Start: 09-29-2022 Refill Willem justice MD Work Phone: Internal Medicine [place] Comment on above: Refill Request Start: 09-19-2022 End: 09-19-2022 Subsequent hospital visit by physician Maxi Perez MD Work Phone: Admitting Comment on above: 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] Start: 09-13-2022 Orders Only Trang Degroot RN [facility] o Comment on above: Portal hypertension (HCC) (Primary Dx); Elevated LFTs; Abnormal results of liver function studies Patient Update Start: 09-12-2022 End: 09-12-2022 Patient encounter procedure Essence Weston MD Work Phone: General Surgery Comment on above: Right inguinal herni a (Primary Dx); Nonalcoholic fatty liver disease without nonalcoholic steatohepatitis (DURANT); Hepatic fibrosis (HCC) on elastography Start: 09-06-2022 Telephone encounter Willem almazan MD Work Phone: Internal Medicine [place] Comment on above: Orders Start: 09-06-2022 End: 09-07-2022 ambulatory ELVA GRIER Facility:[facility] Start: 09-05-2022 Orders Only Ariadne Carroll RN [facility] Radiology Comment on above: Other cirrhosis of l iver (HCC) (Primary Dx) Start: 09-04-2022 Telephone encounter Tevin Seth MD Work Phone: Gastroenterology Comment on above: Patient Update Start: 09-01-2022 End: 09-01-2022 Subsequent hospital visit by physician Dionte Soria MD Work Phone: Admitting Comment on above: 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] Start: 08-31-2022 Telephone encounter Tevin Seth MD Work Phone: [facility] Comment on above: medication question Start: 08-30-2022 Telephone encounter Sheri (H [facility]) Kalpesh WHITESIDE Admitting Comment on above: pre op bronch (Sched uled and confirmed with patient.) Start: 08-22-2022 Telephone encounter Anjelica rgoers PA-C Work Phone: [facility] Adult Comment on above: Patient Update Start: 08-21-2022 ambulatory Florence herman RN Work Phone: [employer] Management Comment on above: community monitoring outreach (CDM outreach telephonic/) Start: 08-14-2022 End: 08-14-2022 Subsequent hospital visit by physician Elias Adler MD Work Phone: Admitting Comment on above: 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] Start: 08-11-2022 End: 08-11-2022 ambulatory THOM DOBBINS Facility:[facility] Start: 08-09-2022 Preprocedural examination done Manju Warner PA-C Work Phone: Pulmonary Medicine Start: 08-09-2022 Telephone encounter Kentrell Pretty [facility] Admitting Comment on above: Returning Patient's Call (Lvm to schedule weekly TAP) Returning Patient's Call (Confirmed apt on 08/14 with pt) Preoperative examina tion (Primary Dx) Returning Patient's Call (Pt confirmed apt 7 covid test) Start: 08-07-2022 Orders Only Lisa Berger RN [facility] Radiology Comment on above: Other ascites (Prima ry Dx) Appointment Start: 07-28-2022 Telephone encounter Anjelica rogers PA-C Work Phone: Radiology Comment on above: Patient Update Start: 07-27-2022 End: 07-27-2022 Orders Only Kati Collins APRN.EMISSIONS TECHNICIAN Work Phone: Gastroenterology Comment on above: Other ascites (Prima ry Dx) Other cirrhosis of l iver (HCC) [K74.69] Appointment Start: 07-25-2022 End: 07-25-2022 Subsequent hospital visit by physician Gloria Calero MD Work Phone: Admitting Comment on above: 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 ) thorancestis order Start: 07-20-2022 End: 07-20-2022 Subsequent hospital visit by physician Clary [facility] (I-Stat) Work Phone: Cat Scan Comment on above: Portal hypertension with esophageal varices (HCC) [K76.6, I85.00] Start: 07-17-2022 End: 07-17-2022 Office outpatient visit 25 minutes Tevin De La Cruz MD Work Phone: Gastroenterology Comment on above: Liver cirrhosis seco ndary to DURANT (HCC) (Primary Dx) Start: 07-17-2022 End: 07-17-2022 Patient encounter procedure Angio Room 1 Work Phone: Radiology Comment on above: Radiology IR (TIPS c onsult) Start: 07-14-2022 End: 07-14-2022 Patient encounter procedure Willem Madsen MD Work Phone: Internal Medicine [place] Comment on above: Coronary arterioscle rosis in [place] artery (Primary Dx); Essential hypertension; Portal hypertension with esophageal varices (HCC); Mixed hyperlipidemia; Impaired fasting glucose Start: 07-13-2022 Telephone encounter Manju Clark (Pss) Gastroenterology Comment on above: Appointment Start: 07-10-2022 Telephone encounter Tevin Seth MD Work Phone: Gastroenterology Comment on above: Para Order [place] Start: 07-10-2022 End: 07-10-2022 ambulatory [facility] Facility:[facility] Start: 07-01-2022 Telephone encounter Tevin Seth MD Work Phone: Gastroenterology Comment on above: Results Start: 06-28-2022 ambulatory Florence herman RN Work Phone: Stereoptic Projection Topographer Management Comment on above: Community Monitoring Outreach (CDM check in engagement/) Start: 06-27-2022 ambulatory UNKNOWN PROVIDER Facili ty:[facility] Start: 06-27-2022 End: 06-27-2022 Subsequent hospital visit by physician [facility] 1 Work Phone: Radiology Comment on above: Portal hypertension with esophageal varices (HCC) [K76.6, I85.00] Start: 06-26-2022 Telephone encounter Tevin Seth MD Work Phone: Gastroenterology Comment on above: Patient Update Start: 06-23-2022 End: 06-23-2022 Patient encounter procedure Tevin De La Cruz MD Work Phone: Gastroenterology Comment on above: Portal hypertension with esophageal varices (HCC) (Primary Dx); 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) Start: 06-19-2022 Telephone encounter Jayne Mejia ms Admitting Comment on above: Thoracentesis Start: 06-19-2022 End: 06-19-2022 Patient encounter procedure Echocardiogram Wstr Work Phone: Cardiology Comment on above: Other cirrhosis of l iver (HCC); Portal hypertension with esophageal varices (HCC); Generalized edema Start: 06-14-2022 End: 06-14-2022 Emergency department patient visit NAEL PALMER Facility:[facility] Start: 06-14-2022 End: 06-14-2022 ambulatory WILLEM MADSEN Facility:[facility] Start: 06-08-2022 Orders Only Caity (Pss) [facility] Radiology Comment on above: Other cirrhosis of l iver (HCC) (Primary Dx) Start: 06-01-2022 End: 06-01-2022 Patient encounter procedure Quan Tafoya MD Work Phone: [facility] Comment on above: BPH with obstruction /lower urinary tract symptoms (Primary Dx) Start: 05-29-2022 ambulatory Tevin arambula MD Work Phone: Gastroenterology Comment on above: update Start: 05-29-2022 Telephone encounter Ananya Casiano grade checker Comment on above: Patient Update Start: 05-24-2022 Telephone encounter Ananya Casiano grade checker Comment on above: Patient Update Start: 05-24-2022 End: 05-24-2022 ambulatory [facility] Nurse Silver Work Phone: [facility] Start: 05-22-2022 End: 05-22-[address] Willem Madsen Work Phone: [facility] Work Phone: Start: 05-22-2022 End: 05-22-[address] 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) Start: 04-27-2022 Telephone encounter Willem almazan MD Work Phone: Internal Medicine [place] Comment on above: Orders Start: 04-17-2022 Telephone encounter Tevin Seth MD Work Phone: Gastroenterology Comment on above: Orders Start: 04-16-2022 ambulatory Tevin arambula MD Work Phone: Gastroenterology Comment on above: Paracentesis Start: 04-06-2022 Refill Tevin arambula MD Work Phone: Gastroenterology Comment on above: Refill Request Start: 04-03-2022 Telephone encounter Tevin Seth MD Work Phone: [facility] Comment on above: lab results Start: 03-30-2022 End: 03-30-2022 Subsequent hospital visit by physician Hepatology Procedures Q3 Gastroenterology Comment on above: Cirrhosis of liver w ith ascites, unspecified hepatic cirrhosis type (HCC) [K74.60, R18.8] Start: 03-27-2022 Orders Only Tevin arambula MD Work Phone: Gastroenterology Comment on above: Liver cirrhosis seco ndary to DURANT (HCC) (Primary Dx) Start: 03-24-2022 End: 03-24-2022 ambulatory Tevin De La Cruz MD Work Phone: Gastroenterology Comment on above: Cirrhosis of liver w ith ascites, unspecified hepatic cirrhosis type (HCC) (Primary Dx) Start: 03-24-2022 End: 03-24-2022 Telemedicine consultation with patient Tevin De La Cruz MD Work Phone: [facility] Start: 03-23-2022 End: 03-23-[address] [facility] Start: 03-22-2022 Telephone encounter Willem almazan MD Work Phone: Family Medicine [place] Comment on above: Diarrhea Start: 02-14-2022 Refill Tevin arambula MD Work Phone: Gastroenterology Comment on above: Refill Request Start: 01-11-2022 End: 01-11-2022 Patient encounter procedure Willem Madsen MD Work Phone: Internal Medicine [place] Comment on above: Medicare annual well ness visit, subsequent (Primary Dx); Stage 3a chronic kidney disease (HCC); Mixed hyperlipidemia; Essential hypertension; Nonalcoholic fatty liver disease without nonalcoholic steatohepatitis (DURANT); Need for COVID-19 vaccine Start: 01-05-2022 End: 01-05-2022 Subsequent hospital visit by physician Tevin De La Cruz MD Work Phone: Gastroenterology Comment on above: Cirrhosis of liver w ith ascites, unspecified hepatic cirrhosis type (HCC) [K74.60, R18.8] Start: 12-29-2021 Telephone encounter Rosemary Wooten RNgrade checker Comment on above: Appointment Start: 11-29-2021 End: 11-29-2021 Patient encounter procedure Tevin De La Cruz MD Work Phone: Gastroenterology Comment on above: Cirrhosis of liver w ith ascites, unspecified hepatic cirrhosis type (HCC) (Primary Dx); Portal hypertension with esophageal varices (HCC); Liver disease, unspecified Start: 11-29-2021 End: 11-29-2021 Subsequent hospital visit by physician Us Slater A21 1 Radiology Comment on above: Cirrhosis of liver w ith ascites, unspecified hepatic cirrhosis type (HCC) [K74.60, R18.8] Start: 11-24-2021 End: 11-24-2021 Patient encounter procedure Quan Tafoya MD Work Phone: [facility] Comment on above: Benign prostatic hyp erplasia, unspecified whether lower urinary tract symptoms present Start: 11-14-2021 End: 11-14-2021 Patient encounter procedure [facility] Start: 11-04-2021 Telephone encounter Quan Tafoya MD Work Phone: [facility] Comment on above: PSA Start: 10-03-2021 Telephone encounter Quan Tafoya MD Work Phone: Urology Comment on above: Patient Question Start: 09-30-2021 Telephone encounter Quan Flores (Hist) Urology Comment on above: FYI-No Action Needed ; Urinary Retention Start: 09-26-2021 ambulatory Tevin arambula MD Work Phone: Gastroenterology Comment on above: daily weights and di uretics Start: 09-26-2021 Telephone encounter Tevin Seth MD Work Phone: Gastroenterology Comment on above: Patient Update; Resu lts Start: 12-27-2017 Patient encounter Kelby Suarez Claire ility:[facility] Procedures Date Procedure Procedure Detail Performing Clinician Start: 02-12-2025 Colonoscopy flx dx w/collj spec when pfrmd Danita Villa THERAPEUTIC RECREATION SPECIALIST.EMISSIONS TECHNICIAN Work Phone: Start: 02-06-2025 Adult depression screening assessment Willem Madsen MD Work Phone: Start: 08-11-2024 Lipid 1996 panel - Serum or Plasma Demetrius Goldberg MD Work Phone: Start: 03-20-2024 [employer] COVID-19 VACCINE AGE 12+ YR (COMIRNATY) Willem Madsen MD Work Phone: Start: 02-08-2024 Hemoglobin A1c/Hemoglobin.total in Blood Willem Madsen MD Work Phone: Start: 02-08-2024 Adult depression screening assessment Willem Madsen MD Work Phone: Start: 09-17-2023 Lipid 1996 panel - Serum or Plasma Demetrius Goldberg MD Work Phone: Start: 03-31-2023 H/O: liver recipient Liver transplant recipient Niki Madera RN Start: 03-12-2023 INFLUENZA VACCINE, PRSV FREE, AGE 65+ YR, HIGH DOSE, QUADRIVALENT (FLUZONE HIGH-DOSE) Willem Madsen MD Work Phone: Start: 02-16-2023 Us chest real time w/image documentation Berenice Paredes MD Work Phone: Start: 02-07-2023 Hemoglobin A1c/Hemoglobin.total in Blood Willem Madsen MD Work Phone: Start: 02-02-2023 Us chest real time w/image documentation Quan Borrero DO Work Phone: Start: 01-23-2023 Us chest real time w/image documentation Holly Shell MD Work Phone: Start: 01-23-2023 End: 01-23-2023 Thoracentesis needle/cath pleura w/o imaging Holly Shell MD Work Phone: Start: 01-11-2023 End: 01-11-2023 Thoracentesis needle/cath pleura w/imaging Gloria Calero MD Work Phone: Start: 12-22-2022 Radiologic exam chest 2 views Dani Ross MD Work Phone: Start: 12-22-2022 BF MANUAL DIFF Dani Ross MD Work Phone: Start: 12-22-2022 Cell count misc body fluids w/differential count Dani Ross MD Work Phone: Start: 12-22-2022 Cul bact xcpt urine blood/stool aerobic isol Dani Ross MD Work Phone: Start: 12-22-2022 Glucose body fluid other than blood Dani Ross MD Work Phone: Start: 12-22-2022 Us chest real time w/image documentation Dani Ross MD Work Phone: Start: 11-23-2022 End: 11-23-2022 Thoracentesis needle/cath pleura w/imaging Bisi Langston MD Work Phone: Start: 11-13-2022 End: 11-13-2022 Thoracentesis needle/cath pleura w/imaging Philip Solis MD Work Phone: Start: 11-10-2022 Abdom paracentesis dx/ther w/imaging guidance Tevin De La Cruz MD Work Phone: Start: 11-10-2022 US PARACENTESIS (POC) DDI USE ONLY Florence Quinteros APRN.EMISSIONS TECHNICIAN Work Phone: Start: 10-18-2022 Ct thorax w/o contrast material Tevin De La Cruz MD Work Phone: Start: 10-16-2022 Spmtry w/vc expiratory jelani w/wo mxml vol vntj Tevin De La Cruz MD Work Phone: Start: 10-16-2022 Lipid 1996 panel - Serum or Plasma Tevin De La Cruz MD Work Phone: Start: 10-09-2022 Radiologic exam chest 2 views Arsalan Dawkins MD Work Phone: Start: 10-09-2022 Thoracentesis needle/cath pleura w/imaging Arsalan Dawkins MD Work Phone: Start: 10-06-2022 Abdom paracentesis dx/ther w/imaging guidance Tevin De La Cruz MD Work Phone: Start: 10-06-2022 US PARACENTESIS (POC) DDI USE ONLY Florence Sullivan APRN.EMISSIONS TECHNICIAN Work Phone: Start: 10-03-2022 Radiologic exam chest 2 views Jo Beckman MD Work Phone: Start: 09-20-2022 End: 04-25-2023 H/O: surgery S/P TIPS (transjugular intrahepatic portosystemic shunt) Willem Madsen MD Work Phone: Start: 09-19-2022 End: 09-19-2022 Thoracentesis needle/cath pleura w/imaging Maxi Perez MD Work Phone: Start: 09-15-2022 H/O: surgery H/O prostatectomy Maxi Perez MD Work Phone: Start: 08-14-2022 Radiologic exam chest 2 views Holly Shell MD Work Phone: Start: 08-09-2022 Antibody screen Abhilash Lee MD Work Phone: Start: 07-27-2022 Abdom paracentesis dx/ther w/imaging guidance Tevin De La Cruz MD Work Phone: Start: 07-27-2022 BF MANUAL DIFF Kati E [place] THERAPEUTIC RECREATION SPECIALIST.EMISSIONS TECHNICIAN Work Phone: Start: 07-27-2022 Cell count misc body fluids w/differential count Kati E [place] THERAPEUTIC RECREATION SPECIALIST.EMISSIONS TECHNICIAN Work Phone: Start: 07-27-2022 US PARACENTESIS (POC) DDI USE ONLY Kati E [place] THERAPEUTIC RECREATION SPECIALIST.EMISSIONS TECHNICIAN Work Phone: Start: 07-25-2022 Us chest real time w/image documentation Darlene Gary MD Work Phone: Start: 07-20-2022 Ct abdomen w/o & w/contrast material Yane Miller THERAPEUTIC RECREATION SPECIALIST.EMISSIONS TECHNICIAN Work Phone: Start: 06-27-2022 Dup-scan artl jelani abdl/pel/scrot&/rpr orgn com Tevin De La Cruz MD Work Phone: Start: 06-27-2022 US ABD LIVER VASCULAR Tevin De La Cruz MD Work Phone: Start: 06-19-2022 Echo transthorac r-t 2d w/wo m-mode rec comp Tevin De La Cruz MD Work Phone: Start: 06-19-2022 LVEF ECHO WITH AGITATED SALINE CONTRAST Tevin De La Cruz MD Work Phone: Start: 06-01-2022 Urnls dip stick/tablet rgnt auto w/o microscopy Quan Tafoya MD Work Phone: Start: 05-24-2022 [employer] COVID-19 BIVALENT BOOSTER VACCINE, AGE 12+ YR Willem Madsen MD Work Phone: Start: 05-22-2022 Plain chest X-ray Dr. Willem Madsen Work Phone: Start: 03-30-2022 Abdom paracentesis dx/ther w/imaging guidance Tevin De La Cruz MD Work Phone: Start: 03-30-2022 Cell count misc body fluids w/differential count Kati E [place] THERAPEUTIC RECREATION SPECIALIST.EMISSIONS TECHNICIAN Work Phone: Start: 03-30-2022 Cul bact xcpt urine blood/stool aerobic isol Kati E [place] THERAPEUTIC RECREATION SPECIALIST.EMISSIONS TECHNICIAN Work Phone: Start: 03-30-2022 Protein total xcpt refractometry oth src Kati E Dennis THERAPEUTIC RECREATION SPECIALIST.EMISSIONS TECHNICIAN Work Phone: Start: 03-30-2022 US PARACENTESIS (POC) DDI USE ONLY Kati E Dennis THERAPEUTIC RECREATION SPECIALIST.EMISSIONS TECHNICIAN Work Phone: Start: 01-11-2022 [employer] COVID-19 VACCINE, AGE 12+ YR (RODRIGEZ TOP) Willem Madsen MD Work Phone: Start: 01-11-2022 Adult depression screening assessment Willem Madsen MD Work Phone: Start: 01-05-2022 Esophagoscp rig transoral hypopharynx crv esoph Tevin De La Cruz MD Work Phone: Start: 11-29-2021 Dup-scan artl jelain abdl/pel/scrot&/rpr orgn com Tevin De La Cruz MD Work Phone: Start: 11-29-2021 US ABD LIVER VASCULAR Tevin De La Cruz MD Work Phone: Start: 11-24-2021 Culture bacterial quanttative colony count urine Quan Tafoya MD Work Phone: Start: 11-24-2021 Urnls dip stick/tablet rgnt auto w/o microscopy Quan Tafoya MD Work Phone: Start: 12-31-2020 Adult depression screening assessment Tevin De La Cruz MD Work Phone: Start: 01-07-2020 Colonoscopy Tevin De La Cruz MD Work Phone: H/O: liver recipient Liver repla sergio by transplant (HCC) Liver Txp Coordinator Work Phone: H/O: liver recipient Liver repla sergio by transplant (HCC) Marco Short MD Work Phone: H/O: liver recipient Liver trans plant recipient (HCC) Dex Oneill MD Work Phone: H/O: liver recipient Liver trans plant recipient (HCC) Liver Txp Coordinator Work Phone: H/O: liver recipient Liver trans plant recipient (HCC) Demetrius Goldberg MD Work Phone: H/O: liver recipient Liver trans plant recipient (HCC) Willem Madsen MD Work Phone: H/O: liver recipient Liver transplanted ( HCC) Abisai Mcclelland APRN.EMISSIONS TECHNICIAN Work Phone: H/O: liver recipient Liver trans plant recipient (HCC) Demetrius Goldberg MD Work Phone: H/O: liver recipient Liver transplanted ( HCC) Liver Txp Coordinator Work Phone: H/O: liver recipient Liver transplanted ( HCC) Liver Txp Coordinator Work Phone: H/O: liver recipient Liver transplanted ( HCC) Abisai Mcclelland APRN.EMISSIONS TECHNICIAN Work Phone: H/O: liver recipient Liver transplanted ( HCC) Pily Glass RN H/O: liver recipient Liver trans plant recipient (HCC) Willem Madsen MD Work Phone: H/O: liver recipient Liver repla sergio by transplant (HCC) Pily Glass RN H/O: liver recipient Liver transplanted ( HCC) Pily Glass RN H/O: liver recipient Liver trans plant recipient (HCC) [employer] H/O: surgery S/P TIPS (transj ugular intrahepatic portosystemic shunt) Abhilash Lee MD Work Phone: H/O: surgery S/P TIPS (transj ugular intrahepatic portosystemic shunt) Tevin De La Cruz MD Work Phone: H/O: surgery S/P TIPS (transj ugular intrahepatic portosystemic shunt) Us 2 Work Phone: H/O: surgery H/O prostatectomy Dex briceno MD Work Phone: History of placement of stent for coronary artery disease S/P coronary artery stent placement Plan of Treatment Date Care Activity Detail Author Start: 11-07-2032 Urine microalbumin profile [facility] Start: 08-11-2029 Lipid panel Lipid Screening [facility] Start: 09-16-2028 Lipid panel Lipid Screening [facility] Start: 02-11-2028 Diabetes Screening Diabetes Screening [facility] Start: 01-13-2028 Diabetes Screening Diabetes Screening [facility] Start: 12-09-2027 Diabetes Screening Diabetes Screening [facility] Start: 11-11-2027 Diabetes Screening Diabetes Screening [facility] Start: 10-17-2027 Lipid 1996 panel - Serum or Plasma Lipid Screening [facility] Start: 10-17-2027 Lipid panel Lipid Screening [facility] Start: 10-17-2027 LIPID SCREEN LIPID SCREEN [facility] Start: 10-07-2027 Diabetes Screening Diabetes Screening [facility] Start: 08-12-2027 Diabetes Screening Diabetes Screening [facility] Start: 07-14-2027 Diabetes Screening Diabetes Screening [facility] Start: 06-12-2027 Diabetes Screening Diabetes Screening [facility] Start: 05-12-2027 Diabetes Screening Diabetes Screening [facility] Start: 04-28-2027 Diabetes Screening Diabetes Screening [facility] Start: 04-07-2027 Diabetes Screening Diabetes Screening [facility] Start: 03-24-2027 Diabetes Screening Diabetes Screening [facility] Start: 03-10-2027 Diabetes Screening Diabetes Screening [facility] Start: 02-24-2027 Diabetes Screening Diabetes Screening [facility] Start: 02-11-2027 Diabetes Screening Diabetes Screening [facility] Start: 02-07-2027 Diabetes Screening Diabetes Screening [facility] Start: 01-27-2027 Diabetes Screening Diabetes Screening [facility] Start: 12-16-2026 Diabetes Screening Diabetes Screening [facility] Start: 12-02-2026 Diabetes Screening Diabetes Screening [facility] Start: 11-05-2026 Diabetes Screening Diabetes Screening [facility] Start: 10-21-2026 Diabetes Screening Diabetes Screening [facility] Start: 10-07-2026 Diabetes Screening Diabetes Screening [facility] Start: 09-23-2026 Diabetes Screening Diabetes Screening [facility] Start: 09-16-2026 Diabetes Screening Diabetes Screening [facility] Start: 09-09-2026 Diabetes Screening Diabetes Screening [facility] Start: 08-26-2026 Diabetes Screening Diabetes Screening [facility] Start: 08-12-2026 Diabetes Screening Diabetes Screening [facility] Start: 07-30-2026 Diabetes Screening Diabetes Screening [facility] Start: 07-16-2026 Diabetes Screening Diabetes Screening [facility] Start: 05-24-2026 Diabetes Screening Diabetes Screening [facility] Start: 05-14-2026 Diabetes Screening Diabetes Screening [facility] Start: 05-02-2026 Diabetes Screening Diabetes Screening [facility] Start: 04-30-2026 Diabetes Screening Diabetes Screening [facility] Start: 04-26-2026 Diabetes Screening Diabetes Screening [facility] Start: 04-23-2026 Diabetes Screening Diabetes Screening [facility] Start: 04-19-2026 Diabetes Screening Diabetes Screening [facility] Start: 04-16-2026 Diabetes Screening Diabetes Screening [facility] Start: 04-12-2026 Diabetes Screening Diabetes Screening [facility] Start: 04-09-2026 Diabetes Screening Diabetes Screening [facility] Start: 04-07-2026 Diabetes Screening Diabetes Screening [facility] Start: 04-01-2026 Diabetes Screening Diabetes Screening [facility] Start: 03-31-2026 Diabetes Screening Diabetes Screening [facility] Start: 02-10-2026 Complete blood count Hemoglobin/Hematocrit [facility] Start: 02-10-2026 Creatinine measurement Serum Creatinine [facility] Start: 02-07-2026 DIABETES SCREEN DIABETES SCREEN [facility] Start: 02-07-2026 Diabetes Screening Diabetes Screening [facility] Start: 02-06-2026 Annual PCP Team Chronic Disease Visit Annual PCP Team Chronic Disease Visit [facility] Start: 02-06-2026 Anxiety Screening Anxiety Screening [facility] Start: 02-06-2026 Depression Screening Depression Screening [facility] Start: 02-06-2026 Medicare Annual Wellness Visit Medicare Annual Wellness Visit [facility] Start: 02-05-2026 DIABETES SCREEN DIABETES SCREEN [facility] Start: 01-23-2026 DIABETES SCREEN DIABETES SCREEN [facility] Start: 01-12-2026 Complete blood count Hemoglobin/Hematocrit [facility] Start: 01-12-2026 Creatinine measurement Serum Creatinine [facility] Start: 01-12-2026 DIABETES SCREEN DIABETES SCREEN [facility] Start: 12-24-2025 LIPID SCREEN LIPID SCREEN [facility] Start: 12-20-2025 DIABETES SCREEN DIABETES SCREEN [facility] Start: 12-08-2025 Complete blood count Hemoglobin/Hematocrit [facility] Start: 12-08-2025 Creatinine measurement Serum Creatinine [facility] Start: 11-29-2025 DIABETES SCREEN DIABETES SCREEN [facility] Start: 11-10-2025 Complete blood count Hemoglobin/Hematocrit [facility] Start: 11-10-2025 Creatinine measurement Serum Creatinine [facility] Start: 10-23-2025 DIABETES SCREEN DIABETES SCREEN [facility] Start: 10-16-2025 DIABETES SCREEN DIABETES SCREEN [facility] Start: 10-06-2025 Complete blood count Hemoglobin/Hematocrit [facility] Start: 10-06-2025 Creatinine measurement Serum Creatinine [facility] Start: 10-03-2025 DIABETES SCREEN DIABETES SCREEN [facility] Start: 09-27-2025 DIABETES SCREEN DIABETES SCREEN [facility] Start: 09-15-2025 DIABETES SCREEN DIABETES SCREEN [facility] Start: 09-14-2025 End: 09-14-2025 Patient encounter procedure 09/14/2025 9:40 AM EDT Office Visit Cardiology [address] [place] [address] Demetrius Goldberg MD [address] [id number] mo follow up Cardiology Comment on above: 8 mo follow up Start: 08-11-2025 Complete blood count Hemoglobin/Hematocrit [facility] Start: 08-11-2025 Creatinine measurement Serum Creatinine [facility] Start: 08-11-2025 Hepatitis B surface antibody level LDL Cholesterol [facility] Start: 08-08-2025 Annual PCP Team Chronic Disease Visit Annual PCP Team Chronic Disease Visit [facility] Start: 08-08-2025 BP Controlled (<130/80) BP Controlled (<130/80) [facility] in Start: 08-08-2025 DIABETES SCREEN DIABETES SCREEN [facility] Start: 08-07-2025 End: 08-07-2025 Patient encounter procedure 08/07/2025 10:00 AM EST Office Visit Internal Medicine [facility] [address] [place], [place] [id number] Willem Madsen MD [address] [facility] [place] [address] 6month follow up [facility] Comment on above: 6month follow up Start: 07-27-2025 End: 10-26-2025 Hemoglobin A1c in Blood HEMOGLOBIN A1C Lab Routine Prediabetes Expected: 07/27/2025, Expires: 10/26/2025 [facility] Comment on above: Expected: 07/27/2025, Expires: Start: 07-27-2025 End: 10-26-2025 Lipid 1996 panel - Serum or Plasma LIPID PANEL, FASTING Lab Routine Mixed hyperlipidemia Expected: 07/27/2025, Expires: 10/26/2025 [facility] Work Phone: Comment on above: Expected: 07/27/2025, Expires: Start: 07-14-2025 Complete blood count Hemoglobin/Hematocrit [facility] Start: 07-14-2025 Creatinine measurement Serum Creatinine [facility] Start: 07-14-2025 End: 07-14-2025 Patient encounter procedure 07/14/2025 8:50 AM EST Office Visit Cardiology [address] [place] [address] Dx: Chronic diastolic congestive heart failure (HCC) [I50.32]; Chronic right-sided heart failure (HCC) [I50.812] Cardiology Comment on above: Dx: Chronic diastolic congestive heart f ailure (HCC) [I50.32]; Chronic right-sided heart failure (HCC) [I50.812] Start: 07-13-2025 End: 01-05-2026 Echocardiography ECHO Cardiology Routine Chronic diastolic congestive heart failure (HCC) Chronic right-sided heart failure (HCC) Expected: 07/13/2025, Expires: 01/05/2026 [facility] Work Phone: Comment on above: Expected: 07/13/2025, Expires: Start: 06-23-2025 DIABETES SCREEN DIABETES SCREEN [facility] Start: 06-14-2025 DIABETES SCREEN DIABETES SCREEN [facility] Start: 06-12-2025 Complete blood count Hemoglobin/Hematocrit [facility] Start: 06-12-2025 Creatinine measurement Serum Creatinine [facility] Start: 06-06-2025 DIABETES SCREEN DIABETES SCREEN [facility] Start: 05-25-2025 DIABETES SCREEN DIABETES SCREEN [facility] Start: 05-12-2025 Complete blood count Hemoglobin/Hematocrit [facility] Start: 05-12-2025 Creatinine measurement Serum Creatinine [facility] Start: 04-28-2025 Complete blood count Hemoglobin/Hematocrit [facility] Start: 04-28-2025 Creatinine measurement Serum Creatinine [facility] Start: 04-09-2025 End: 04-09-2025 Patient encounter procedure 04/09/2025 1:05 PM EDT Appointment Radiology [address] [place] [address] Osteopenia of multiple sites [M85.89] Radiology Comment on above: Osteopenia of multiple sites [M85.89] Start: 04-07-2025 Complete blood count Hemoglobin/Hematocrit [facility] Start: 04-07-2025 Creatinine measurement Serum Creatinine [facility] Start: 03-29-2025 DIABETES SCREEN DIABETES SCREEN [facility] Start: 03-24-2025 Complete blood count Hemoglobin/Hematocrit [facility] Start: 03-24-2025 Creatinine measurement Serum Creatinine [facility] Start: 03-23-2025 End: 03-23-2025 ambulatory 03/23/2025 12:00 PM EDT [facility] [address] [address] Abisai Mcclelland, JEFFREY.EMISSIONS TECHNICIAN [address] [place] [address] 2 year f/up Transplant Center Comment on above: 2 year f/up Start: 03-10-2025 Complete blood count Hemoglobin/Hematocrit [facility] Start: 03-10-2025 Creatinine measurement Serum Creatinine [facility] Start: 03-05-2025 End: 03-05-2025 Patient encounter procedure 03/05/2025 11:15 AM EDT Appointment Radiology [address] [place] [id number] Osteopenia of multiple sites [M85.89] Radiology Comment on above: Osteopenia of multiple sites [M85.89] Start: 02-24-2025 Complete blood count Hemoglobin/Hematocrit [facility] Start: 02-24-2025 Creatinine measurement Serum Creatinine [facility] Start: 02-12-2025 End: 02-12-2025 Patient encounter procedure Gastroenterology Comment on above: Screen for colon cancer [Z12.11] Start: 02-11-2025 Complete blood count Hemoglobin/Hematocrit [facility] Start: 02-11-2025 Creatinine measurement Serum Creatinine [facility] Start: 02-09-2025 Influenza vaccination Influenza Vaccine (#1) [facility] Start: 02-07-2025 Annual PCP Team Chronic Disease Visit Annual PCP Team Chronic Disease Visit [facility] Start: 02-07-2025 Anxiety Screening Anxiety Screening [facility] Start: 02-07-2025 BP Controlled (<130/80) BP Controlled (<130/80) [facility] in Start: 02-07-2025 Depression Screening Depression Screening [facility] Start: 02-07-2025 Medicare Annual Wellness Visit Medicare Annual Wellness Visit [facility] Start: 02-06-2025 End: 02-06-2025 Patient encounter procedure 02/06/2025 10:00 AM EDT Office Visit Internal Medicine [place] [address] [place] [address] Willem Madsen MD [address] [place] [address] 6 month follow up-labs Internal Medicine [place] Comment on above: 6 month follow up-labs Start: 01-27-2025 Complete blood count Hemoglobin/Hematocrit [facility] Start: 01-27-2025 Creatinine measurement Serum Creatinine [facility] Start: 01-06-2025 End: 01-06-2025 Patient encounter procedure 01/06/2025 4:00 PM EDT Office Visit General Surgery [address] [place] [address] Danita Driver APRN.EMISSIONS TECHNICIAN [address] [place] [address] CONSULT: Colonoscopy; (last 01/07/2020). [facility] General Surgery Comment on above: CONSULT: Colonoscopy; (last 01/07/2020). [facility] Start: 01-06-2025 Colonoscopy COLONOSCOPY [facility] Start: 01-06-2025 COLORECTAL CANCER SCREENING COLORECTAL CANCER SCREENING [facility] Start: 01-06-2025 Screening for malignant neoplasm of colon [facility] Start: 01-05-2025 End: 01-05-2025 Patient encounter procedure Cardiology Comment on above: 6 mo follow up Start: 12-23-2024 DIABETES SCREEN DIABETES SCREEN [facility] Start: 12-16-2024 Complete blood count Hemoglobin/Hematocrit [facility] Start: 12-16-2024 Creatinine measurement Serum Creatinine [facility] Start: 12-02-2024 Complete blood count Hemoglobin/Hematocrit [facility] Start: 12-02-2024 Creatinine measurement Serum Creatinine [facility] Start: 11-08-2024 DIABETES SCREEN DIABETES SCREEN [facility] Start: 11-05-2024 Complete blood count Hemoglobin/Hematocrit [facility] Start: 11-05-2024 Creatinine measurement Serum Creatinine [facility] Start: 10-21-2024 Creatinine measurement Serum Creatinine [facility] Start: 10-07-2024 BP Controlled (<130/80) BP Controlled (<130/80) [facility] in Start: 10-07-2024 Complete blood count Hemoglobin/Hematocrit [facility] Start: 10-07-2024 Creatinine measurement Serum Creatinine [facility] Start: 09-30-2024 DIABETES SCREEN DIABETES SCREEN [facility] Start: 09-26-2024 DIABETES SCREEN DIABETES SCREEN [facility] Start: 09-23-2024 Complete blood count Hemoglobin/Hematocrit [facility] Start: 09-23-2024 Creatinine measurement Serum Creatinine [facility] Start: 09-18-2024 Covid-19 Vaccine (7 - Mixed Product risk ) Covid-19 Vaccine (7 - Mixed Product risk ) [facility] Start: 09-16-2024 Creatinine measurement Serum Creatinine [facility] Start: 09-16-2024 Hepatitis B surface antibody level LDL Cholesterol [facility] Start: 09-09-2024 Complete blood count Hemoglobin/Hematocrit [facility] Start: 09-09-2024 Creatinine measurement Serum Creatinine [facility] Start: 08-26-2024 Creatinine measurement Serum Creatinine [facility] Start: 08-12-2024 Annual PCP Team Chronic Disease Visit Annual PCP Team Chronic Disease Visit [facility] Start: 08-12-2024 BP Controlled (<130/80) BP Controlled (<130/80) [facility] Start: 08-12-2024 Creatinine measurement Serum Creatinine [facility] Start: 08-11-2024 End: 11-10-2024 Lipid 1996 panel - Serum or Plasma LIPID PANEL BASIC Lab Routine Mixed hyperlipidemia Expected: 08/11/2024, Expires: 11/10/2024 [facility] Comment on above: Expected: 08/11/2024, Expires: Start: 08-08-2024 End: 08-08-2024 Patient encounter procedure 08/08/2024 10:20 AM EST Office Visit Internal Medicine [place] [address] [place], [place] [id number] Willem Madsen MD [address] [place], [place] [id number] 6 month follow up-DM Internal Medicine [place] Comment on above: 6 month follow up-DM Start: 07-30-2024 Creatinine measurement Serum Creatinine [facility] Start: 07-16-2024 Complete blood count Hemoglobin/Hematocrit [facility] Start: 07-16-2024 Creatinine measurement Serum Creatinine [facility] Start: 07-08-2024 End: 07-08-2024 Patient encounter procedure 07/08/2024 2:20 PM EST Office Visit [facility] [address] [place] [address] Demetrius Goldberg MD [address] [address] 6 Mth f/u ok per MS. [facility] [place] Comment on above: 6 Mth f/u ok per MS. Start: 07-04-2024 BP Controlled (<130/80) BP Controlled (<130/80) [facility] Start: 06-11-2024 Advance Directive Discussion Advance Directive Discussion [facility] Start: 06-09-2024 End: 06-09-2024 Patient encounter procedure 06/09/2024 11:00 AM EST Office Visit Card[place] [phone] Demetrius Goldberg MD [address] [facility] [address] [place] [address] 6 mo follow up Cardiology Comment on above: 6 mo follow up Start: 05-24-2024 Complete blood count Hemoglobin/Hematocrit [facility] Start: 05-24-2024 Creatinine measurement Serum Creatinine [facility] Start: 05-15-2024 Covid-19 Vaccine () Covid-19 Vaccine () [facility] Start: 05-14-2024 Hemoglobin/Hematocrit Hemoglobin/Hematocrit [facility] Start: 05-14-2024 Serum Creatinine Serum Creatinine [facility] Start: 05-02-2024 Hemoglobin/Hematocrit Hemoglobin/Hematocrit [facility] Start: 05-02-2024 Serum Creatinine Serum Creatinine [facility] Start: 05-01-2024 BP Controlled (<130/80) BP Controlled (<130/80) [facility] Start: 04-30-2024 Hemoglobin/Hematocrit Hemoglobin/Hematocrit [facility] Start: 04-30-2024 Serum Creatinine Serum Creatinine [facility] Start: 04-26-2024 BP Controlled (<130/80) BP Controlled (<130/80) [facility] Start: 04-26-2024 Hemoglobin/Hematocrit Hemoglobin/Hematocrit [facility] Start: 04-26-2024 Serum Creatinine Serum Creatinine [facility] Start: 04-23-2024 Serum Creatinine Serum Creatinine [facility] Start: 04-19-2024 Serum Creatinine Serum Creatinine [facility] Start: 04-16-2024 Hemoglobin/Hematocrit Hemoglobin/Hematocrit [facility] Start: 04-16-2024 Serum Creatinine Serum Creatinine [facility] Start: 04-14-2024 End: 04-14-2024 Patient encounter procedure 04/14/2024 10:00 AM EST Office Visit Transplant Center [address] [address] Abisai Mcclelland APRN.EMISSIONS TECHNICIAN [address] [place] [address] Liver transplanted (HCC) [Z94.4] Transplant Center Comment on above: Liver transplanted (HCC) [Z94.4] Start: 04-13-2024 BP Controlled (<130/80) BP Controlled (<130/80) [facility] Start: 04-12-2024 Serum Creatinine Serum Creatinine [facility] Start: 04-09-2024 BP Controlled (<130/80) BP Controlled (<130/80) [facility] Start: 04-09-2024 Serum Creatinine Serum Creatinine [facility] Start: 04-07-2024 Serum Creatinine Serum Creatinine [facility] Start: 04-01-2024 Hemoglobin/Hematocrit Hemoglobin/Hematocrit [facility] Start: 04-01-2024 Serum Creatinine Serum Creatinine [facility] Start: 03-31-2024 Serum Creatinine Serum Creatinine [facility] Start: 03-28-2024 End: 03-28-2024 Patient encounter procedure 03/28/2024 9:50 AM EDT Immunization [facility] [place] [address] [place], [place] [id number] [place], Immunization Clinic Nurse [address] [place], [place] [id number] [facility] [place] Comment on above: Flu Start: 03-12-2024 End: 06-11-2024 Hepatitis B virus DNA [Units/volume] in Serum HEPATITIS B VIRUS DNA QUANTIFICATION, PLASMA/SERUM Lab Routine Liver transplanted (HCC) Expected: 03/12/2024, Expires: 06/11/2024 [facility] Work Phone: Comment on above: Expected: 03/12/2024, Expires: Start: 02-10-2024 Covid-19 Vaccine ( season) Covid-19 Vaccine ( season) [facility] Start: 02-10-2024 Covid-19 Vaccine ( season) Covid-19 Vaccine ( season) [facility] Start: 02-10-2024 Influenza vaccination Influenza Vaccine (#1) [facility] Start: 02-08-2024 ANNUAL PCP TEAM CHRONIC DISEASE VISIT ANNUAL PCP TEAM CHRONIC DISEASE VISIT [facility] Start: 02-08-2024 BP CONTROLLED (<130/80) BP CONTROLLED (<130/80) [facility] Start: 02-08-2024 End: 02-08-2024 Patient encounter procedure 02/08/2024 10:40 AM EDT Office Visit Internal Medicine [place] [address] [place] [address] Willem Madsen MD [address] [place] [address] Medicare Wellness w/6 month follow-up [facility] [place] Comment on above: Medicare Wellness w/6 month follow-up Start: 02-06-2024 HEMOGLOBIN/HEMATOCRIT HEMOGLOBIN/HEMATOCRIT [facility] Start: 02-06-2024 SERUM CREATININE SERUM CREATININE [facility] Start: 01-24-2024 SERUM CREATININE SERUM CREATININE [facility] Start: 01-16-2024 BP CONTROLLED (<130/80) BP CONTROLLED (<130/80) [facility] in Start: 01-13-2024 SERUM CREATININE SERUM CREATININE [facility] Start: 12-21-2023 HEMOGLOBIN/HEMATOCRIT HEMOGLOBIN/HEMATOCRIT [facility] Start: 12-21-2023 SERUM CREATININE SERUM CREATININE [facility] Start: 11-30-2023 SERUM CREATININE SERUM CREATININE [facility] Start: 10-24-2023 HEMOGLOBIN/HEMATOCRIT HEMOGLOBIN/HEMATOCRIT [facility] Start: 10-24-2023 SERUM CREATININE SERUM CREATININE [facility] Start: 10-17-2023 HEMOGLOBIN/HEMATOCRIT HEMOGLOBIN/HEMATOCRIT [facility] Start: 10-17-2023 Hepatitis B surface antibody level LDL CHOLESTEROL [facility] Start: 10-17-2023 SERUM CREATININE SERUM CREATININE [facility] Start: 10-11-2023 ANNUAL PCP TEAM CHRONIC DISEASE VISIT ANNUAL PCP TEAM CHRONIC DISEASE VISIT [facility] Start: 10-11-2023 BP CONTROLLED (<130/80) BP CONTROLLED (<130/80) [facility] in Start: 10-08-2023 End: 10-08-2023 Patient encounter procedure 10/08/2023 1:00 PM EDT Office Visit Transplant Center [address] [address] Abisai Mcclelland APRN.EMISSIONS TECHNICIAN [address] [place] [address] Follow up Transplant Center Comment on above: Follow up Start: 10-04-2023 HEMOGLOBIN/HEMATOCRIT HEMOGLOBIN/HEMATOCRIT [facility] Start: 10-04-2023 SERUM CREATININE SERUM CREATININE [facility] Start: 10-03-2023 ANNUAL PCP TEAM CHRONIC DISEASE VISIT ANNUAL PCP TEAM CHRONIC DISEASE VISIT [facility] Start: 10-03-2023 BP CONTROLLED (<130/80) BP CONTROLLED (<130/80) [facility] Start: 10-01-2023 End: 12-31-2023 Basic metabolic 2000 panel - Serum or Plasma BASIC METABOLIC PANEL Lab Routine Chronic diastolic congestive heart failure (HCC) Expected: 10/01/2023, Expires: 12/31/2023 [facility] Comment on above: Expected: 10/01/2023, Expires: Start: 10-01-2023 End: 12-31-2023 Natriuretic peptide.B prohormone N-Terminal [Mass/volume] in Serum or Plasma NT PRO BNP Lab Routine Chronic diastolic congestive heart failure (HCC) Expected: 10/01/2023, Expires: 12/31/2023 [facility] Work Phone: Comment on above: Expected: 10/01/2023, Expires: Start: 09-28-2023 HEMOGLOBIN/HEMATOCRIT HEMOGLOBIN/HEMATOCRIT [facility] Start: 09-28-2023 SERUM CREATININE SERUM CREATININE [facility] Start: 09-17-2023 End: 12-17-2023 Alanine aminotransferase [Enzymatic activity/volume] in Serum or Plasma ALT/SGPT Lab Routine Mixed hyperlipidemia Coronary arteriosclerosis in [place] artery Expected: 09/17/2023, Expires: 12/17/2023 [facility] Work Phone: Comment on above: Expected: 09/17/2023, Expires: Start: 09-17-2023 End: 12-17-2023 Aspartate aminotransferase [Enzymatic activity/volume] in Serum or Plasma AST/SGOT BLD Lab Routine Mixed hyperlipidemia Coronary arteriosclerosis in [place] artery Expected: 09/17/2023, Expires: 12/17/2023 [facility] Work Phone: Comment on above: Expected: 09/17/2023, Expires: Start: 09-17-2023 End: 07-08-2024 Lipid 1996 panel - Serum or Plasma [facility] Work Phone: Comment on above: Expected: 09/17/2023, Expires: Start: 09-16-2023 BP CONTROLLED (<130/80) BP CONTROLLED (<130/80) [facility] Start: 09-16-2023 HEMOGLOBIN/HEMATOCRIT HEMOGLOBIN/HEMATOCRIT [facility] Start: 09-16-2023 SERUM CREATININE SERUM CREATININE [facility] Start: 09-13-2023 BP CONTROLLED (<130/80) BP CONTROLLED (<130/80) [facility] in Start: 09-07-2023 HEMOGLOBIN/HEMATOCRIT HEMOGLOBIN/HEMATOCRIT [facility] Start: 09-05-2023 ANNUAL PCP TEAM CHRONIC DISEASE VISIT ANNUAL PCP TEAM CHRONIC DISEASE VISIT [facility] Start: 09-05-2023 BP CONTROLLED (<130/80) BP CONTROLLED (<130/80) [facility] Start: 08-08-2023 HEMOGLOBIN/HEMATOCRIT HEMOGLOBIN/HEMATOCRIT [facility] Start: 08-08-2023 SERUM CREATININE SERUM CREATININE [facility] Start: 07-17-2023 BP CONTROLLED (<130/80) BP CONTROLLED (<130/80) [facility] Start: 07-14-2023 ANNUAL PCP TEAM CHRONIC DISEASE VISIT ANNUAL PCP TEAM CHRONIC DISEASE VISIT [facility] Start: 07-08-2023 Covid-19 Vaccine (6 - Moderna series) Covid-19 Vaccine (6 - Moderna series) [facility] Start: 06-23-2023 BP CONTROLLED (<130/80) BP CONTROLLED (<130/80) [facility] Start: 06-23-2023 HEMOGLOBIN/HEMATOCRIT HEMOGLOBIN/HEMATOCRIT [facility] Start: 06-23-2023 SERUM CREATININE SERUM CREATININE [facility] Start: 06-14-2023 SERUM CREATININE SERUM CREATININE [facility] Start: 06-11-2023 Advance Directive Discussion Advance Directive Discussion [facility] Start: 06-11-2023 Behavioral Health Screening Behavioral Health Screening [facility] Start: 06-11-2023 Depression Assessment Depression Assessment [facility] Start: 06-06-2023 HEMOGLOBIN/HEMATOCRIT HEMOGLOBIN/HEMATOCRIT [facility] Start: 06-06-2023 SERUM CREATININE SERUM CREATININE [facility] Start: 06-01-2023 BP CONTROLLED (<130/80) BP CONTROLLED (<130/80) [facility] Start: 05-25-2023 SERUM CREATININE SERUM CREATININE [facility] Start: 05-03-2023 Covid-19 Vaccine () Covid-19 Vaccine () [facility] Start: 04-27-2023 End: 07-27-2023 Hepatitis B virus DNA [Units/volume] in Serum HEP B VIRAL DNA MEHUL Lab Routine Liver transplant recipient (HCC) Expected: 04/27/2023, Expires: 07/27/2023 [facility] Work Phone: Comment on above: Expected: 04/27/2023, Expires: 4 Start: 04-27-2023 End: 07-27-2023 Hepatitis C virus RNA [Units/volume] (viral load) in Serum or Plasma by ZUAIR with probe detection HCV QUANT RNA BY PCR Lab Routine Liver transplant recipient (HCC) Expected: 04/27/2023, Expires: 07/27/2023 [facility] Work Phone: Comment on above: Expected: 04/27/2023, Expires: 4 Start: 04-27-2023 End: 07-27-2023 HIV 1 RNA [#/volume] (viral load) in Serum or Plasma by UZAIR with probe detection HIV RNA VIRAL LOAD Lab Routine Liver transplant recipient (HCC) Asymptomatic human immunodeficiency virus (hiv) infection status (HCC) Expected: 04/27/2023, Expires: 07/27/2023 [facility] Work Phone: Comment on above: Expected: 04/27/2023, Expires: 4 Start: 04-19-2023 End: 07-19-2023 25-hydroxyvitamin D3 [Mass/volume] in Serum or Plasma VITAMIN D 25 HYDROXY Lab Routine Liver replaced by transplant (HCC) Unspecified severe protein-calorie malnutrition (HCC) Expected: 04/19/2023, Expires: 07/19/2023 [facility] Work Phone: Comment on above: Expected: 04/19/2023, Expires: 4 Start: 04-10-2023 End: 07-10-2023 Hepatitis C virus RNA [Units/volume] (viral load) in Serum or Plasma by UZAIR with probe detection HCV QUANT RNA BY PCR Lab Routine Liver replaced by transplant (HCC) Expected: 04/10/2023, Expires: 07/10/2023 [facility] Work Phone: Comment on above: Expected: 04/10/2023, Expires: Start: 03-29-2023 ANNUAL PCP TEAM CHRONIC DISEASE VISIT ANNUAL PCP TEAM CHRONIC DISEASE VISIT [facility] Start: 03-29-2023 SERUM CREATININE SERUM CREATININE [facility] Start: 03-10-2023 Hepatitis a & b vaccine hepa-hepb adult im HEP A-HEP B VACCINE ([place]) Immunization/Injection Routine Need for vaccination Expected: 03/10/2023 (Approximate) [facility] Work Phone: Comment on above: Expected: 03/10/2023 (Approximate) Start: 02-09-2023 Influenza vaccination [facility] Start: 01-26-2023 End: 02-22-2024 DXA-AXIAL SKELETON DXA-AXIAL SKELETON Radiology [place]IS[place] Nonalcoholic fatty liver disease without nonalcoholic steatohepatitis ([place]) Encounter for screening for osteoporosis Age-related osteoporosis without current pathological fracture Expected: 01/26/2023, Expires: 02/22/2024 [facility] Work Phone: Comment on above: Expected: 01/26/2023, Expires: 4 Start: 01-26-2023 End: 01-23-2024 LIVER REC HLA AB SCREEN LIVER REC HLA AB SCREEN ALLOGEN [place] Nonalcoholic fatty liver disease without nonalcoholic steatohepatitis ([place]) Encounter for screening for osteoporosis Expected: 01/26/2023, Expires: 01/23/2024 [facility] Work Phone: Comment on above: Expected: 01/26/2023, Expires: 4 Start: 01-14-2023 End: 03-16-2023 Basic metabolic 2000 panel - Serum or Plasma BASIC METABOLIC PNL Lab Routine Impaired fasting glucose Expected: 01/14/2023, Expires: 03/16/2023 [facility] Work Phone: Comment on above: Expected: 01/14/2023, Expires: 3 Start: 01-14-2023 End: 03-16-2023 Hemoglobin A1c in Blood HGB A1C Lab Routine Impaired fasting glucose Expected: 01/14/2023, Expires: 03/16/2023 [facility] Work Phone: Comment on above: Expected: 01/14/2023, Expires: 3 Start: 01-14-2023 End: 03-16-2023 Lipid 1996 panel - Serum or Plasma LIPID PANEL BASIC Lab Routine Mixed hyperlipidemia Expected: 01/14/2023, Expires: 03/16/2023 [facility] Work Phone: Comment on above: Expected: 01/14/2023, Expires: 3 Start: 01-11-2023 Adult depression screening assessment DEPRESSION SCREENING [facility] Start: 01-11-2023 ANNUAL PCP TEAM CHRONIC DISEASE VISIT ANNUAL PCP TEAM CHRONIC DISEASE VISIT [facility] Start: 01-11-2023 BP CONTROLLED (<130/80) BP CONTROLLED (<130/80) [facility] Start: 12-23-2022 SERUM CREATININE SERUM CREATININE [facility] Start: 11-29-2022 BP CONTROLLED (<130/80) BP CONTROLLED (<130/80) [facility] Start: 11-24-2022 BP CONTROLLED (<130/80) BP CONTROLLED (<130/80) [facility] Start: 11-14-2022 Hepatitis B surface antibody level LDL CHOLESTEROL [facility] Start: 11-08-2022 SERUM CREATININE SERUM CREATININE [facility] Start: 10-16-2022 End: 10-04-2023 25-hydroxyvitamin D3 [Mass/volume] in Serum or Plasma VITAMIN D 25 HYDROXY Lab Routine Liver transplant candidate DURANT (nonalcoholic steatohepatitis) Liver disease, unspecified Expected: 10/16/2022, Expires: 10/04/2023 [facility] Work Phone: Comment on above: Expected: 10/16/2022, Expires: 4 Start: 10-16-2022 End: 10-04-2023 ALPHA 1 ANTITRYPSIN PHENOTYPE ALPHA 1 ANTITRYPSIN PHENOTYPE Lab Routine Liver transplant candidate DURANT (nonalcoholic steatohepatitis) Expected: 10/16/2022, Expires: 10/04/2023 [facility] Work Phone: Comment on above: Expected: 10/16/2022, Expires: Start: 10-16-2022 End: 10-04-2023 Alpha tocopherol [Mass/volume] in Serum or Plasma VITAMIN E/TOCOPHEROL Lab Routine Liver transplant candidate DURANT (nonalcoholic steatohepatitis) Expected: 10/16/2022, Expires: 10/04/2023 [facility] Work Phone: Comment on above: Expected: 10/16/2022, Expires: Start: 10-16-2022 End: 10-04-2023 Kyaoa-9-Sibphcbrium [Mass/volume] in Serum or Plasma ALPHA FETOPROTEIN BL Lab Routine Liver transplant candidate DURANT (nonalcoholic steatohepatitis) Other cirrhosis of liver (HCC) Expected: 10/16/2022, Expires: 10/04/2023 [facility] Work Phone: Comment on above: Expected: 10/16/2022, Expires: Start: 10-16-2022 End: 10-04-2023 aPTT in Platelet poor plasma by Coagulation assay ACTIVATED PTT Lab Routine Liver transplant candidate DURANT (nonalcoholic steatohepatitis) Expected: 10/16/2022, Expires: 10/04/2023 [facility] Work Phone: Comment on above: Expected: 10/16/2022, Expires: 4 Start: 10-16-2022 End: 10-04-2023 Basic metabolic 2000 panel - Serum or Plasma BASIC METABOLIC PNL Lab Routine Liver transplant candidate DURANT (nonalcoholic steatohepatitis) Expected: 10/16/2022, Expires: 10/04/2023 [facility] Work Phone: Comment on above: Expected: 10/16/2022, Expires: Start: 10-16-2022 End: 10-04-2023 BLOOD TB SCREEN BLOOD TB SCREEN Lab Routine Liver transplant candidate DURANT (nonalcoholic steatohepatitis) Expected: 10/16/2022, Expires: 10/04/2023 [facility] Work Phone: Comment on above: Expected: 10/16/2022, Expires: 4 Start: 10-16-2022 End: 10-04-2023 CBC W Auto Differential panel - Blood CBC + DIFF Lab STAT Liver transplant candidate DURANT (nonalcoholic steatohepatitis) Expected: 10/16/2022, Expires: 10/04/2023 [facility] Work Phone: Comment on above: Expected: 10/16/2022, Expires: Start: 10-16-2022 End: 10-04-2023 Chronic hepatitis differentiation between hepatitis B and C virus panel - Serum or Plasma HEP REMOTE PANEL BL Lab Routine Liver transplant candidate DURANT (nonalcoholic steatohepatitis) Expected: 10/16/2022, Expires: 10/04/2023 [facility] Work Phone: Comment on above: Expected: 10/16/2022, Expires: 4 Start: 10-16-2022 End: 11-02-2023 Ct thorax w/o contrast material CT CHEST WO IVCON Radiology Routine Liver transplant candidate DURANT (nonalcoholic steatohepatitis) Expected: 10/16/2022, Expires: 11/02/2023 [facility] Work Phone: Comment on above: Expected: 10/16/2022, Expires: 4 Start: 10-16-2022 End: 10-04-2023 Cytomegalovirus IgG Ab [Units/volume] in Serum or Plasma CMV IGG ANTIBODY BL Lab Routine Liver transplant candidate DURANT (nonalcoholic steatohepatitis) Expected: 10/16/2022, Expires: 10/04/2023 [facility] Work Phone: Comment on above: Expected: 10/16/2022, Expires: 4 Start: 10-16-2022 End: 10-04-2023 Nereyda Monge virus capsid IgG Ab [Units/volume] in Serum NEREYDA-MONGE VCA IGG Lab Routine Liver transplant candidate DURANT (nonalcoholic steatohepatitis) Expected: 10/16/2022, Expires: 10/04/2023 [facility] Work Phone: Comment on above: Expected: 10/16/2022, Expires: 4 Start: 10-16-2022 End: 10-04-2023 Ferritin [Mass/volume] in Serum or Plasma FERRITIN BLD Lab Routine Liver transplant candidate DURANT (nonalcoholic steatohepatitis) Expected: 10/16/2022, Expires: 10/04/2023 [facility] Work Phone: Comment on above: Expected: 10/16/2022, Expires: Start: 10-16-2022 End: 10-04-2023 Hepatic function 2000 panel - Serum or Plasma HEPATIC FUNCTION PNL Lab Routine Liver transplant candidate DURANT (nonalcoholic steatohepatitis) Expected: 10/16/2022, Expires: 10/04/2023 [facility] Work Phone: Comment on above: Expected: 10/16/2022, Expires: 4 Start: 10-16-2022 End: 10-04-2023 HEPATITIS A ANTIBODY, IGG HEPATITIS A ANTIBODY, IGG Lab Routine Liver transplant candidate DURANT (nonalcoholic steatohepatitis) Expected: 10/16/2022, Expires: 10/04/2023 [facility] Work Phone: Comment on above: Expected: 10/16/2022, Expires: 4 Start: 10-16-2022 End: 10-04-2023 HIV 1+2 Ab [Presence] in Serum or Plasma by Immunoassay HIV 1 2 COMBO(AG/AB),WITH REFLEX TO DIFFERENTIATION Lab Routine Liver transplant candidate DURANT (nonalcoholic steatohepatitis) Encounter for screening for human immunodeficiency virus (HIV) Expected: 10/16/2022, Expires: 10/04/2023 [facility] Work Phone: Comment on above: Expected: 10/16/2022, Expires: Start: 10-16-2022 End: 10-04-2023 Iron and Iron binding capacity panel - Serum or Plasma IRON + TIBC Lab Routine Liver transplant candidate DURANT (nonalcoholic steatohepatitis) Expected: 10/16/2022, Expires: 10/04/2023 [facility] Work Phone: Comment on above: Expected: 10/16/2022, Expires: 4 Start: 10-16-2022 End: 10-04-2023 Lipid 1996 panel - Serum or Plasma LIPID PANEL BASIC Lab Routine Liver transplant candidate DURANT (nonalcoholic steatohepatitis) Expected: 10/16/2022, Expires: 10/04/2023 [facility] Work Phone: Comment on above: Expected: 10/16/2022, Expires: 4 Start: 10-16-2022 End: 10-04-2023 LIVER REC INIT W/U LIVER REC INIT W/U ALLOGEN Routine Liver transplant candidate DURANT (nonalcoholic steatohepatitis) Expected: 10/16/2022, Expires: 10/04/2023 [facility] Work Phone: Comment on above: Expected: 10/16/2022, Expires: 4 Start: 10-16-2022 End: 12-16-2022 PSA/PROSTSPECAG SCRN PSA/PROSTSPECAG SCRN Lab Routine Encounter for screening for malignant neoplasm of prostate Liver transplant candidate DURANT (nonalcoholic steatohepatitis) Expected: 10/16/2022, Expires: 12/16/2022 [facility] Work Phone: Comment on above: Expected: 10/16/2022, Expires: 3 Start: 10-16-2022 End: 10-04-2023 PT panel - Platelet poor plasma by Coagulation assay PROTHROMBIN TIME/PT Lab STAT Liver transplant candidate DURANT (nonalcoholic steatohepatitis) Expected: 10/16/2022, Expires: 10/04/2023 [facility] Work Phone: Comment on above: Expected: 10/16/2022, Expires: 4 Start: 10-16-2022 End: 10-04-2023 Retinol [Mass/volume] in Serum or Plasma VITAMIN A/RETINOL Lab Routine Liver transplant candidate DURANT (nonalcoholic steatohepatitis) Expected: 10/16/2022, Expires: 10/04/2023 [facility] Work Phone: Comment on above: Expected: 10/16/2022, Expires: Start: 10-16-2022 End: 10-04-2023 RUBEOLA (MEASLES)IGG RUBEOLA (MEASLES)IGG Lab Routine Liver transplant candidate DURANT (nonalcoholic steatohepatitis) Expected: 10/16/2022, Expires: 10/04/2023 [facility] Work Phone: Comment on above: Expected: 10/16/2022, Expires: Start: 10-16-2022 End: 11-02-2023 SPIROMETRY BASELINE ONLY [facility] Work Phone: Comment on above: Expected: 10/16/2022, Expires: 4 Start: 10-16-2022 End: 10-04-2023 SYPHILIS TOTAL W/REFLEX SYPHILIS TOTAL W/REFLEX Lab Routine Liver transplant candidate DURANT (nonalcoholic steatohepatitis) Expected: 10/16/2022, Expires: 10/04/2023 [facility] Work Phone: Comment on above: Expected: 10/16/2022, Expires: Start: 10-16-2022 End: 10-04-2023 Thyrotropin [Units/volume] in Serum or Plasma TSH BLD Lab Routine Liver transplant candidate DURNAT (nonalcoholic steatohepatitis) Abnormal findings on diagnostic imaging of other specified body structures Expected: 10/16/2022, Expires: 10/04/2023 [facility] Work Phone: Comment on above: Expected: 10/16/2022, Expires: 4 Start: 10-16-2022 End: 12-16-2022 TOX SCREEN ROUT UR TOX SCREEN ROUT UR Lab Routine Liver transplant candidate DURANT (nonalcoholic steatohepatitis) Encounter for observation for other suspected diseases and conditions ruled out Expected: 10/16/2022, Expires: 12/16/2022 [facility] Work Phone: Comment on above: Expected: 10/16/2022, Expires: 3 Start: 10-16-2022 End: 10-04-2023 TOXICOLOGY PANEL BLD TOXICOLOGY PANEL BLD Lab Routine Liver transplant candidate DURANT (nonalcoholic steatohepatitis) Expected: 10/16/2022, Expires: 10/04/2023 [facility] Work Phone: Comment on above: Expected: 10/16/2022, Expires: 4 Start: 10-16-2022 End: 10-04-2023 TRANSPLANT CONFIRM ABO/RH TRANSPLANT CONFIRM ABO/RH Blood Bank Routine Liver transplant candidate DURANT (nonalcoholic steatohepatitis) Expected: 10/16/2022, Expires: 10/04/2023 [facility] Work Phone: Comment on above: Expected: 10/16/2022, Expires: 4 Start: 10-16-2022 End: 10-04-2023 TYPE + SCREEN TYPE + SCREEN Blood Bank STAT Liver transplant candidate DURANT (nonalcoholic steatohepatitis) Expected: 10/16/2022, Expires: 10/04/2023 [facility] Work Phone: Comment on above: Expected: 10/16/2022, Expires: 4 Start: 10-16-2022 End: 10-04-2023 VARICELLA ZOSTER IGG VARICELLA ZOSTER IGG Lab Routine Liver transplant candidate DURANT (nonalcoholic steatohepatitis) Expected: 10/16/2022, Expires: 10/04/2023 [facility] Work Phone: Comment on above: Expected: 10/16/2022, Expires: 4 Start: 09-30-2022 HEMOGLOBIN/HEMATOCRIT HEMOGLOBIN/HEMATOCRIT [facility] Start: 09-30-2022 SERUM CREATININE SERUM CREATININE [facility] Start: 09-26-2022 SERUM CREATININE SERUM CREATININE [facility] Start: 09-23-2022 Hepatitis a & b vaccine hepa-hepb adult im HEPA/HEPB VACCINE ADULT IM Immunization/Injection Routine 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) Expected: 09/23/2022 [facility] Work Phone: Comment on above: Expected: 09/23/2022 Start: 09-22-2022 COVID-19 VACCINE (6 - Moderna series) COVID-19 VACCINE (6 - Moderna series) [facility] Start: 09-20-2022 End: 11-20-2022 CBC panel - Blood by Automated count CBC Lab Routine Portal hypertension (HCC) Elevated LFTs Expected: 09/20/2022, Expires: 11/20/2022 [facility] Work Phone: Comment on above: Expected: 09/20/2022, Expires: 3 Start: 09-20-2022 End: 11-20-2022 Comprehensive metabolic 2000 panel - Serum or Plasma COMP METABOLIC PANEL Lab Routine Portal hypertension (HCC) Elevated LFTs Expected: 09/20/2022, Expires: 11/20/2022 [facility] Work Phone: Comment on above: Expected: 09/20/2022, Expires: 3 Start: 09-20-2022 End: 11-20-2022 PT panel - Platelet poor plasma by Coagulation assay PROTHROMBIN TIME/PT Lab Routine Portal hypertension (HCC) Elevated LFTs Abnormal results of liver function studies Expected: 09/20/2022, Expires: 11/20/2022 [facility] Work Phone: Comment on above: Expected: 09/20/2022, Expires: 3 Start: 09-20-2022 End: 11-20-2022 TYPE AND SCREEN,30 DAY TYPE AND SCREEN,30 DAY Blood Bank Routine Portal hypertension (HCC) Elevated LFTs Expected: 09/20/2022, Expires: 11/20/2022 [facility] Work Phone: Comment on above: Expected: 09/20/2022, Expires: 3 Start: 09-05-2022 End: 11-05-2022 CBC panel - Blood by Automated count CBC Lab Routine Other cirrhosis of liver (HCC) Expected: 09/05/2022, Expires: 11/05/2022 [facility] Work Phone: Comment on above: Expected: 09/05/2022, Expires: 3 Start: 09-05-2022 End: 11-05-2022 PT panel - Platelet poor plasma by Coagulation assay [facility] Work Phone: Comment on above: Expected: 09/05/2022, Expires: 3 Start: 08-24-2022 BP CONTROLLED (<130/80) BP CONTROLLED (<130/80) [facility] Start: 08-09-2022 End: 12-09-2022 SARS-CoV-2 (COVID-19) RNA [Presence] in Respiratory specimen by UZAIR with probe detection INTERMEDIATE RAPID COVID Microbiology Routine Preoperative examination Expected: 08/09/2022, Expires: 12/09/2022 [facility] Work Phone: Comment on above: Expected: 08/09/2022, Expires: 3 Start: 07-17-2022 End: 09-16-2022 CBC panel - Blood by Automated count CBC Lab Routine Portal hypertension with esophageal varices (HCC) 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) Expected: 07/17/2022, Expires: 09/16/2022 [facility] Work Phone: Comment on above: Expected: 07/17/2022, Expires: 3 Start: 07-17-2022 End: 09-16-2022 Comprehensive metabolic 2000 panel - Serum or Plasma COMP METABOLIC PANEL Lab Routine Portal hypertension with esophageal varices (HCC) 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) Expected: 07/17/2022, Expires: 09/16/2022 [facility] Work Phone: Comment on above: Expected: 07/17/2022, Expires: 3 Start: 07-17-2022 End: 09-16-2022 PT panel - Platelet poor plasma by Coagulation assay PROTHROMBIN TIME/PT Lab STAT Portal hypertension with esophageal varices (HCC) 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) Expected: 07/17/2022, Expires: 09/16/2022 [facility] Work Phone: Comment on above: Expected: 07/17/2022, Expires: 3 Start: 07-17-2022 End: 09-16-2022 TYPE AND SCREEN,30 DAY TYPE AND SCREEN,30 DAY Blood Bank Routine Portal hypertension with esophageal varices (HCC) 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) Expected: 07/17/2022, Expires: 09/16/2022 [facility] Work Phone: Comment on above: Expected: 07/17/2022, Expires: 3 Start: 07-12-2022 ANNUAL PCP TEAM CHRONIC DISEASE VISIT ANNUAL PCP TEAM CHRONIC DISEASE VISIT [facility] Start: 06-11-2022 ADVANCE DIRECTIVE DISCUSSION ADVANCE DIRECTIVE DISCUSSION [facility] Start: 06-11-2022 DEPRESSION ASSESSMENT DEPRESSION ASSESSMENT [facility] Start: 05-31-2022 End: 12-29-2022 Us abdominal real time w/image limited US ABD RT UPPER QUADRANT Radiology Routine Cirrhosis of liver with ascites, unspecified hepatic cirrhosis type (HCC) Portal hypertension with esophageal varices (HCC) Expected: 05/31/2022, Expires: 12/29/2022 [facility] Work Phone: Comment on above: Expected: 05/31/2022, Expires: 3 Start: 04-26-2022 Hepatitis a & b vaccine hepa-hepb adult im HEPA/HEPB VACCINE ADULT IM Immunization/Injection Routine 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) Expected: 04/26/2022 [facility] Work Phone: Comment on above: Expected: 04/26/2022 Start: 03-24-2022 End: 05-24-2022 CBC panel - Blood by Automated count CBC Lab Routine Cirrhosis of liver with ascites, unspecified hepatic cirrhosis type (HCC) Expected: 03/24/2022, Expires: 05/24/2022 [facility] Work Phone: Comment on above: Expected: 03/24/2022, Expires: 2 Start: 03-24-2022 End: 05-24-2022 PT panel - Platelet poor plasma by Coagulation assay PROTHROMBIN TIME/PT Lab Routine Cirrhosis of liver with ascites, unspecified hepatic cirrhosis type (HCC) Expected: 03/24/2022, Expires: 05/24/2022 [facility] Work Phone: Comment on above: Expected: 03/24/2022, Expires: 2 Start: 03-08-2022 COVID-19 VACCINE (5 - Booster for Moderna series) COVID-19 VACCINE (5 - Booster for Moderna series) [facility] Start: 02-09-2022 Influenza vaccination INFLUENZA (#1) [facility] Start: 12-31-2021 Adult depression screening assessment DEPRESSION SCREENING [facility] Start: 12-24-2021 Hepatitis B surface antibody level LDL CHOLESTEROL [facility] Start: 12-05-2021 End: 12-05-2021 Prostate specific Ag [Mass/volume] in Serum or Plasma PSA/PROSTSPECAG DIAG Lab Routine Benign prostatic hyperplasia, unspecified whether lower urinary tract symptoms present Expected: 12/05/2021, Expires: 12/05/2021 [facility] Work Phone: Comment on above: Expected: 12/05/2021, Expires: 2 Start: 11-29-2021 End: 01-29-2022 25-hydroxyvitamin D3 [Mass/volume] in Serum or Plasma VITAMIN D 25 HYDROXY Lab Routine Cirrhosis of liver with ascites, unspecified hepatic cirrhosis type (HCC) Portal hypertension with esophageal varices (HCC) Liver disease, unspecified Expected: 11/29/2021, Expires: 01/29/2022 [facility] Work Phone: Comment on above: Expected: 11/29/2021, Expires: 2 Start: 11-29-2021 End: 01-29-2022 CBC W Auto Differential panel - Blood CBC + DIFF Lab Routine Cirrhosis of liver with ascites, unspecified hepatic cirrhosis type (HCC) Portal hypertension with esophageal varices (HCC) Expected: 11/29/2021, Expires: 01/29/2022 [facility] Work Phone: Comment on above: Expected: 11/29/2021, Expires: 2 Start: 11-29-2021 End: 01-29-2022 Comprehensive metabolic 2000 panel - Serum or Plasma COMP METABOLIC PANEL Lab Routine Cirrhosis of liver with ascites, unspecified hepatic cirrhosis type (HCC) Portal hypertension with esophageal varices (HCC) Expected: 11/29/2021, Expires: 01/29/2022 [facility] Work Phone: Comment on above: Expected: 11/29/2021, Expires: 2 Start: 11-29-2021 End: 01-29-2022 Ferritin [Mass/volume] in Serum or Plasma FERRITIN BLD Lab Routine Cirrhosis of liver with ascites, unspecified hepatic cirrhosis type (HCC) Portal hypertension with esophageal varices (HCC) Expected: 11/29/2021, Expires: 01/29/2022 [facility] Work Phone: Comment on above: Expected: 11/29/2021, Expires: 2 Start: 11-29-2021 End: 01-29-2022 HEPATITIS A ANTIBODY, IGG HEPATITIS A ANTIBODY, IGG Lab Routine Cirrhosis of liver with ascites, unspecified hepatic cirrhosis type (HCC) Portal hypertension with esophageal varices (HCC) Expected: 11/29/2021, Expires: 01/29/2022 [facility] Work Phone: Comment on above: Expected: 11/29/2021, Expires: 2 Start: 11-29-2021 End: 01-29-2022 Hepatitis B virus surface Ab [Presence] in Serum HEP B SURF AB QUAL Lab Routine Cirrhosis of liver with ascites, unspecified hepatic cirrhosis type (HCC) Portal hypertension with esophageal varices (HCC) Expected: 11/29/2021, Expires: 01/29/2022 [facility] Work Phone: Comment on above: Expected: 11/29/2021, Expires: 2 Start: 11-29-2021 End: 01-29-2022 Iron and Iron binding capacity panel - Serum or Plasma IRON + TIBC Lab Routine Cirrhosis of liver with ascites, unspecified hepatic cirrhosis type (HCC) Portal hypertension with esophageal varices (HCC) Expected: 11/29/2021, Expires: 01/29/2022 [facility] Work Phone: Comment on above: Expected: 11/29/2021, Expires: 2 Start: 11-29-2021 End: 01-29-2022 PT panel - Platelet poor plasma by Coagulation assay PROTHROMBIN TIME/PT Lab Routine Cirrhosis of liver with ascites, unspecified hepatic cirrhosis type (HCC) Portal hypertension with esophageal varices (HCC) Expected: 11/29/2021, Expires: 01/29/2022 [facility] Work Phone: Comment on above: Expected: 11/29/2021, Expires: 2 Start: 08-27-2021 COVID-19 VACCINE (4 - Booster for Moderna series) COVID-19 VACCINE (4 - Booster for Moderna series) [facility] Start: 06-11-2021 ADVANCE DIRECTIVE DISCUSSION ADVANCE DIRECTIVE DISCUSSION [facility] Start: 06-11-2021 DEPRESSION ASSESSMENT DEPRESSION ASSESSMENT [facility] Start: 12-24-2020 BP CONTROLLED (<130/80) BP CONTROLLED (<130/80) [facility] Start: 01-12-2018 FECAL OCCULT BLOOD FECAL OCCULT BLOOD [facility] Start: 01-12-2018 Screening for malignant neoplasm of colon Fecal Occult Blood [facility] Start: 07-18-2017 Urine microalbumin profile DTAP,TDAP,TD (2 - Td or Tdap) [facility] Start: 10-04-2015 SHINGRIX VACCINE (1 of 2) SHINGRIX VACCINE (1 of 2) [facility] Start: 10-04-2015 SHINGRIX VACCINE (2 of 3) SHINGRIX VACCINE (2 of 3) [facility] Start: 2009 RSV Vaccine (1 - 1-dose 60+ series) RSV Vaccine (1 - 1-dose 60+ series) [facility] Start: 1994 COLOGUARD (FIT-DNA) COLOGUARD (FIT-DNA) [facility] Start: [address] COLONOGRAPHY [facility] Start: 1994 Screening for malignant neoplasm of colon [facility] Start: 1994 SIGMOIDOSCOPY SIGMOIDOSCOPY [facility] Start: 1967 Anxiety Screening Anxiety Screening [facility] Start: 1967 Depression Screening Depression Screening [facility] End: 04-17-2023 Abdom paracentesis dx/ther w/imaging guidance ABDOM PARACENTESIS DX/THER W IMAGING GUIDANCE Endoscopy Routine Other cirrhosis of liver (HCC) Every other week for 12 Occurrences starting 04/18/2022 until 04/17/2023 [facility] Work Phone: Comment on above: Every other week for 12 Occurrences evert wagner 04/18/2022 until 04/17/2023 End: 07-08-2023 Abdom paracentesis dx/ther w/imaging guidance IMAGING GUIDED PARACENTESIS Radiology Routine Other cirrhosis of liver (HCC) Every other week for 25 Occurrences starting 06/08/2022 until 07/08/2023 [facility] Work Phone: Comment on above: Every other week for 25 Occurrences evert wagner 06/08/2022 until 07/08/2023 End: 08-09-2023 Abdom paracentesis dx/ther w/imaging guidance IMAGING GUIDED PARACENTESIS Radiology Routine 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) Portal hypertension with esophageal varices (HCC) Once per week for 52 Occurrences starting 07/10/2022 until 08/09/2023 [facility] Work Phone: Comment on above: Once per week for 52 Occurrences startin g 07/10/2022 until 08/09/2023 End: 10-04-2023 Abdom paracentesis dx/ther w/imaging guidance ABDOM PARACENTESIS DX/THER W IMAGING GUIDANCE Endoscopy Routine Other ascites 1 Occurrences starting 10/03/2022 until 10/04/2023 [facility] Work Phone: Comment on above: 1 Occurrences starting 10/03/2022 until 10/04/2023 Albumin [Mass/volume ] in Body fluid [facility] Work Phone: Comment on above: Release Upon Ordering for 1 Occurrences starting 03/30/2022, 1 completed End: 02-16-2023 ALLOGEN HLA-AB SUM RPT [facility] Comment on above: ONCE for 1 Occurrences starting 02/17/20 until 02/16/2023 Amylase [Enzymatic activity/volume] in Body fluid [facility] Work Phone: Comment on above: Release Upon Ordering for 1 Occurrences starting 03/30/2022, 1 completed Bacteria identified in Body fluid by Culture BODY FLUID CULTURE AND GRAM STAIN Microbiology Routine Cirrhosis of liver with ascites, unspecified hepatic cirrhosis type (HCC) 03/30/2022 8:[address] [facility] Work Phone: Bacteria identified in Body fluid by Culture BODY FLUID CULTURE AND GRAM STAIN Microbiology Routine Pleural effusion 12/22/2022 11:[address] [facility] Work Phone: Bacteria identified in Unspecified specimen by Anaerobe culture [facility] Work Phone: Comment on above: Release Upon Ordering for 1 Occurrences starting 03/30/2022 Bacteria identified in Unspecified specimen by Anaerobe culture [facility] Work Phone: Comment on above: Release Upon Ordering for 1 Occurrences starting 12/22/2022 Bacteria identified in Urine by Culture URINE CULTURE Microbiology Routine Benign prostatic hyperplasia, unspecified whether lower urinary tract symptoms present 11/24/2021 3:[address] [facility] Work Phone: End: 06-13-2023 Basic metabolic 2000 panel - Serum or Plasma BASIC METABOLIC PNL Lab Routine Portal hypertension with esophageal varices (HCC) Once per month for 12 Occurrences starting 06/23/2022 until 06/13/2023 [facility] Work Phone: Comment on above: Once per month for 12 Occurrences starti ng 06/23/2022 until 06/13/2023 End: 09-07-2025 BD DXA TRABECULAR BONE SCORE (TBS) BD DXA TRABECULAR BONE SCORE (TBS) Radiology Routine Osteopenia of multiple sites 1 Occurrences starting 08/08/2024 until 09/07/2025 [facility] Comment on above: 1 Occurrences starting 08/08/2024 until 09/07/2025 BF MANUAL DIFF BF MANUAL DIFF L ab Routine Cirrhosis of liver with ascites, unspecified hepatic cirrhosis type (HCC) 03/30/2022 8:[address] [facility] Work Phone: End: 06-13-2023 CBC W Auto Differential panel - Blood CBC + DIFF Lab Routine Portal hypertension with esophageal varices (HCC) Once per month for 12 Occurrences starting 06/23/2022 until 06/13/2023, [address] [facility] Work Phone: Comment on above: Once per month for 12 Occurrences starti ng 06/23/2022 until 06/13/2023, 1 completed End: 04-28-2025 CBC W Auto Differential panel - Blood COMPLETE BLOOD COUNT AND DIFFERENTIAL Lab Routine Liver transplanted (HCC) Once per month for 11 Occurrences starting 04/28/2024 until 04/28/2025, [address] [facility] Work Phone: Comment on above: Once per month for 11 Occurrences starti ng 04/28/2024 until 04/28/2025, 1 completed End: 04-28-2025 Comprehensive metabolic 2000 panel - Serum or Plasma COMPREHENSIVE METABOLIC PANEL Lab Routine Liver transplanted (HCC) Once per month for 11 Occurrences starting 04/28/2024 until 04/28/2025, 1 completed [facility] Comment on above: Once per month for 11 Occurrences starti ng 04/28/2024 until 04/28/2025, 1 completed End: 08-16-2023 Ct abdomen w/o & w/contrast material CT LIVER WO/W IVCON Radiology Routine Portal hypertension with esophageal varices (HCC) 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 Work Phone: Comment on above: 1 Occurrences starting 07/17/2022 until 08/16/2023 CYTOLOGY NON-OPERATING ROOM TECH [facility] Work Phone: Comment on above: Release Upon Ordering for 1 Occurrences starting 03/30/2022 End: 11-30-2023 Dup-scan artl jelani abdl/pel/scrot&/rpr orgn com US DOPPLER COMPLETE Radiology Routine S/P TIPS (transjugular intrahepatic portosystemic shunt) 1 Occurrences starting 10/31/2022 until 11/30/2023 [facility] Work Phone: Comment on above: 1 Occurrences starting 10/31/2022 until 11/30/2023 Dup-scan artl jelani abdl/pel/scrot&/rpr orgn com US DOPPLER COMPLETE Radiology Routine S/P TIPS (transjugular intrahepatic portosystemic shunt) 2023 10:[address] [facility] Work Phone: End: 09-07-2025 DXA Skeletal system.axial Views for bone density DXA-AXIAL SKELETON Radiology Routine Osteopenia of multiple sites 1 Occurrences starting 08/08/2024 until 09/07/2025 [facility] Work Phone: Comment on above: 1 Occurrences starting 08/08/2024 until 09/07/2025 End: 11-29-2022 EGD - THERAPEUTIC, EUS, OR TUBE INTERVENTIONS EGD - THERAPEUTIC, EUS, OR TUBE INTERVENTIONS Endoscopy Routine Cirrhosis of liver with ascites, unspecified hepatic cirrhosis type (HCC) Portal hypertension with esophageal varices (HCC) 1 Occurrences starting 11/29/2021 until 11/29/2022 [facility] Work Phone: Comment on above: 1 Occurrences starting 11/29/2021 until 11/29/[address]ER EXTRA [address] [facility] Lab Routine 07/27/2022 7:[address] [facility] Work Phone: End: 04-28-2025 Gamma glutamyl transferase [Enzymatic activity/volume] in Serum or Plasma GGT Lab Routine Liver transplanted (HCC) Once per month for 11 Occurrences starting 04/28/2024 until 04/28/2025 [facility] Comment on above: Once per month for 11 Occurrences starti ng 04/28/2024 until 04/28/2025 Gamma glutamyl transferase [Enzymatic activity/volume] in Serum or Plasma GGT Lab Routine Liver transplanted (HCC) 04/28/2024 9:15 AM EST [facility] End: 06-13-2023 Hepatic function 2000 panel - Serum or Plasma HEPATIC FUNCTION PNL Lab Routine Portal hypertension with esophageal varices (HCC) Once per month for 12 Occurrences starting 06/23/2022 until 06/13/2023 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 Work Phone: Comment on above: Ordered: 03/27/2022 End: 12-18-2024 Hepatitis C virus RNA [Units/volume] (viral load) in Serum or Plasma by UZAIR with probe detection HEPATITIS C RNA QUANTIFICATION BY PCR, PLASMA/SERUM Lab Routine Liver transplanted (HCC) Once per month for 11 Occurrences starting 12/19/2023 until 12/18/2024 [facility] Work Phone: Comment on above: Once per month for 11 Occurrences starti ng 12/19/2023 until 12/18/2024 End: 08-11-2025 Hepatitis C virus RNA [Units/volume] (viral load) in Serum or Plasma by UZAIR with probe detection HEPATITIS C VIRUS (HCV) RNA, QUANTITATIVE PCR, PLASMA/SERUM Lab Routine Liver replaced by transplant (HCC) Once per month for 11 Occurrences starting 08/11/2024 until 08/11/2025 [facility] Work Phone: Comment on above: Once per month for 11 Occurrences starti ng 08/11/2024 until 08/11/2025 Hepb vaccine adult 3 dose schedule for im use HEP B VACCINE, 3-DOSE, AGE 20+ YR (ENGERIX-B, RECOMBIVAX HB) Immunization/Injection Routine Need for vaccination Ordered: 09/06/2022 [facility] Work Phone: Comment on above: Ordered: 09/06/2022 End: 07-27-[address] [facility] Work Phone: Comment on above: ONCE for 1 Occurrences starting 07/27/19 23 until 07/27/2022 End: 04-28-2025 Phosphate [Mass/volume] in Serum or Plasma PHOSPHORUS INORGANIC Lab Routine Liver transplanted (HCC) Once per month for 11 Occurrences starting 04/28/2024 until 04/28/2025, 1 completed [facility] Comment on above: Once per month for 11 Occurrences starti ng 04/28/2024 until 04/28/2025, 1 completed Prostate specific Ag [Mass/volume] in Serum or Plasma PSA/PROSTSPECAG DIAG Lab Routine Benign prostatic hyperplasia, unspecified whether lower urinary tract symptoms present 11/08/2021 10:[address] [facility] Work Phone: End: 06-13-2023 PT panel - Platelet poor plasma by Coagulation assay PROTHROMBIN TIME/PT Lab Routine Portal hypertension with esophageal varices (HCC) Once per month for 12 Occurrences starting 06/23/2022 until 06/13/2023, [address] [facility] Work Phone: Comment on above: Once per month for 12 Occurrences starti ng 06/23/2022 until 06/13/2023, 1 completed PT panel - Platelet poor plasma by Coagulation assay PROTHROMBIN TIME/PT Lab Routine Other ascites 08/08/2022 12:[address] [facility] Work Phone: End: 01-06-2026 Screening colonoscopy COLONOSCOPY SCREENING Endoscopy Routine Screen for colon cancer History of colonic polyps 1 Occurrences starting 01/06/2025 until 01/06/2026 [facility] Work Phone: Comment on above: 1 Occurrences starting 01/06/2025 until 01/06/2026 End: 04-28-2025 Tacrolimus [Mass/volume] in Blood TACROLIMUS/FK-506 BL Lab Routine Liver transplanted (HCC) Once per month for 11 Occurrences starting 04/28/2024 until 04/28/2025 [facility] Comment on above: Once per month for 11 Occurrences starti ng 04/28/2024 until 04/28/2025 Tacrolimus [Mass/vol ume] in Blood TACROLIMUS/FK-506 BL Lab Routine Liver transplanted (HCC) 04/28/2024 9:15 AM EST [facility] Thoracentesis needle/cath pleura w/imaging IMAGING GUIDED THORACENTESIS Radiology Routine 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 Work Phone: Comment on above: Ordered: 07/27/2022 Tissue Pathology bio psy report [facility] Work Phone: Comment on above: Release Upon Ordering for 1 Occurrences starting 02/12/2025, 1 completed End: 11-30-2023 US ABD LIVER VASCULAR US ABD LIVER VASCULAR Radiology Routine S/P TIPS (transjugular intrahepatic portosystemic shunt) 1 Occurrences starting 10/31/2022 until 11/30/2023 [facility] Work Phone: Comment on above: 1 Occurrences starting 10/31/2022 until 11/30/2023 US ABD LIVER VASCULAR US ABD CONNOR ER VASCULAR Radiology Routine S/P TIPS (transjugular intrahepatic portosystemic shunt) 2023 10:[address] [facility] Work Phone: End: 08-16-2023 Us abdominal real time w/image limited [facility] Work Phone: Comment on above: Every 6 months for 5 Occurrences startin g 07/17/2022 until 08/16/2023 1 Occurrences starti ng 07/17/2022 until 08/16/2023 End: 08-14-2022 US CHEST (POC) H23 USE ONLY US CHEST (POC) H23 USE ONLY Imaging Diagnostic Routine ONCE for 1 Occurrences starting 08/14/2022 until 08/14/2022 [facility] Work Phone: Comment on above: ONCE for 1 Occurrences starting 08/15/19 until 08/14/2022 End: 01-11-2023 US CHEST (POC) H23 USE ONLY US CHEST (POC) H23 USE ONLY Imaging Diagnostic Routine ONCE for 1 Occurrences starting 01/11/2023 until 01/11/2023 [facility] Work Phone: Comment on above: ONCE for 1 Occurrences starting 01/12/20 until 01/11/2023 US DVT UPPER BILATERAL US DVT UP PER BILATERAL Radiology Routine 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 Encounter for other preprocedural examination 01/19/2023 3:[address] [facility] Work Phone: End: 07-25-2022 US THORACENTESIS (POC) H23 USE ONLY US THORACENTESIS (POC) H23 USE ONLY Imaging Procedures Routine ONCE for 1 Occurrences starting 07/25/2022 until 07/25/2022 [facility] Work Phone: Comment on above: ONCE for 1 Occurrences starting 07/25/19 until 07/25/2022 [facility] PULM LAB H23 [facility]ULM [facility] H[facility] MAIN PAVILIO N [facility] Immunizations Immunization Date Immunization Notes Care Provider [facility] 03-28-2024 influenza, high dose seasonal, preservative-free Immunization Silver Work Phone: [facility] 03-28-2024 influenza virus vaccine, unspecified formulation Demetrius Goldberg MD Work Phone: [facility] 03-20-2024 COVID-19 vaccine, ag e 12+ yr (PFIZER-BIONTECH COMIRNATY) Co Nurse Work Phone: [facility] 03-12-2023 hepatitis A and hepatitis B vaccine Mi Nurse Work Phone: [facility] Work Phone: 03-12-2023 influenza (HD-IIV4) vaccine, age 65+ yr, high dose, quadrivalent, PF (FLUZONE HIGH-DOSE) Co Nurse Work Phone: [facility] Work Phone: 03-12-2023 influenza virus vaccine, unspecified formulation Liver Coordinator Work Phone: [facility] 03-08-2023 COVID-19 vaccine, ag e 12+ yr, season (MODERNA) Edda Mccoy [facility] 02-07-2023 hepatitis A and hepatitis B vaccine Willem Madsen MD Work Phone: [facility] Work Phone: 12-25-2022 zoster vaccine recombinant Abhilash Lee MD Work Phone: [facility] Work Phone: 11-07-2022 tetanus toxoid, redu sergio diphtheria toxoid, and acellular pertussis vaccine, adsorbed Abhilash Lee MD Work Phone: [facility] Work Phone: 10-26-2022 zoster vaccine recombinant Abhilash Lee MD Work Phone: [facility] Work Phone: 10-18-2022 diphtheria, tetanus toxoids and acellular pertussis vaccine, unspecified formulation Matt Lopez MD Work Phone: [facility] Work Phone: Comment on above: Inject 0.5 mL intram uscularly one time only for 1 dose. 10-18-2022 zoster RZV vaccine, PF, (SHINGRIX, PF,) 50 mcg/0.5 mL injection Matt Lopez MD Work Phone: [facility] Work Phone: Comment on above: Inject 0.5 mL intram uscularly one time only for 1 dose. Repeat 2nd dose in 2-6 months. 10-04-2022 hepatitis B vaccine, adult dosage Co Nurse Work Phone: [facility] Work Phone: 05-24-2022 COVID-19 booster vaccine, age 12+ yr, bivalent ([employer]) Ananya Casiano RN [facility] Work Phone: 05-09-2022 hepatitis B vaccine, adult dosage Co Nurse Work Phone: [facility] Work Phone: 04-28-2022 hepatitis B vaccine, adult dosage Willem Madsen MD Work Phone: [facility] Work Phone: 03-29-2022 Hepatitis B vaccine (recombinant), CpG adjuvanted [facility] [address] 03-24-2022 Hepatitis B vaccine (recombinant), CpG adjuvanted Tevin De La Cruz MD Work Phone: [facility] Work Phone: 03-23-2022 influenza, seasonal, injectable Dr. Willem Madsen Work Phone: [facility] 03-23-2022 influenza virus vaccine, unspecified formulation Tevin De La Cruz MD Work Phone: [facility] 01-11-2022 COVID-19 vaccine, ag e 12+ yr (Access Closure-BIONTECH - RODRIGEZ TOP) Willem Madsen MD Work Phone: [facility] 07-12-2021 hepatitis A and hepatitis B vaccine Tevin De La Cruz MD Work Phone: [facility] Work Phone: 04-29-2021 COVID-19 vaccine, booster dose (MODERNA) Tevin De La Cruz MD Work Phone: [facility] Work Phone: 03-24-2021 influenza, high dose seasonal, preservative-free Tevin De La Cruz MD Work Phone: [facility] Work Phone: 02-08-2021 hepatitis A and hepatitis B vaccine Tevin De La Cruz MD Work Phone: [facility] Work Phone: 01-06-2021 hepatitis A and hepatitis B vaccine Tevin De La Cruz MD Work Phone: [facility] Work Phone: 09-06-2020 COVID-19 vaccine, fu ll dose (MODERNA) Tevin De La Cruz MD Work Phone: [facility] Work Phone: 08-09-2020 COVID-19 vaccine, fu ll dose (MODERNA) Tevin De La Cruz MD Work Phone: [facility] Work Phone: 03-12-2020 influenza, high dose seasonal, preservative-free Tevin De La Cruz MD Work Phone: [facility] Work Phone: 04-17-2019 influenza, high dose seasonal, preservative-free Tevin De La Cruz MD Work Phone: [facility] Work Phone: 04-17-2019 pneumococcal polysaccharide vaccine, 23 valent Tevin De La Cruz MD Work Phone: [facility] Work Phone: 04-17-2018 influenza, high dose seasonal, preservative-free Tevin De La Cruz MD Work Phone: [facility] 06-10-2017 Influenza virus vaccine [facility] Work Phone: 06-10-2017 influenza, high dose seasonal, preservative-free Tevin De La Cruz MD Work Phone: [facility] Work Phone: 06-14-2016 influenza, seasonal, injectable Tevin De La Cruz MD Work Phone: [facility] 01-05-2016 pneumococcal conjuga te vaccine, 13 valent Tevin De La Cruz MD Work Phone: [facility] 08-09-2015 zoster vaccine, live Tevin De La Cruz MD Work Phone: [facility] Work Phone: 07-07-2015 influenza, high dose seasonal, preservative-free Tevin De La Cruz MD Work Phone: [facility] 06-25-2014 influenza, seasonal, injectable Tevin De La Cruz MD Work Phone: [facility] 01-08-2014 pneumococcal polysaccharide vaccine, 23 valent Tevin De La Cruz MD Work Phone: [facility] 07-03-2013 influenza virus vaccine, unspecified formulation Tevin De La Cruz MD Work Phone: [facility] 06-12-2012 influenza virus vaccine, unspecified formulation Tevin De La Cruz MD Work Phone: [facility] Work Phone: 05-03-2011 influenza virus vaccine, unspecified formulation Tevin De La Cruz MD Work Phone: [facility] Work Phone: 05-02-2010 influenza virus vaccine, unspecified formulation Tevin De La Cruz MD Work Phone: [facility] Work Phone: 07-18-2007 tetanus toxoid, redu sergio diphtheria toxoid, and acellular pertussis vaccine, adsorbed Tevin De La Cruz MD Work Phone: [facility] Work Phone: Payers Date Payer Category Payer Self-pay [id number] 2015 Private Health Insurance HUMANA HUMANA MEDICARE SUPPLEMENT [id number] 2015-Present [phone] [address] [address] [place] [address] Indemnity [id number] 2015 Private Health Insurance [id number] 2015 Private Health Insurance [id number] 2013 Medicare [id number] 2013 Medicare MEDICARE MEDICAR E A AND B [id number] 2013-Present [phone] [address] [address] [place] [address] Medicare [id number] 2013 Medicare [id number] 2013 Medicare [id number] 2008 Unknown [id number] Unknown [id number] Unknown [id number] Unknown [id number] Unknown [id number] Unknown [id number] Unknown [id number] Social History Date Type Detail Facility Start: 04-17-2018 End: 01-15-2023 Tobacco smoking status NHIS Ex-smoker [facility] Work Phone: History of tobacco use Cigar Smoker [facility] Work Phone: Start: 04-17-2018 End: 01-05-2025 Tobacco use and exposure Smokeless tobacco non-user [facility] Work Phone: Start: 08-24-2021 End: 07-17-2022 Alcohol intake Current drinker of alcohol (finding) [facility] Start: 05-16-2020 End: 08-24-2021 Alcohol intake [facility] Start: 01-07-2020 End: 07-07-2022 History SDOH Alcohol Frequency 2 [facility] Start: 01-07-2020 End: 03-22-2022 History SDOH Alcohol Std Drinks 1 [facility] Start: 05-12-2021 History SDOH Alcohol Comment one drink or shot once weekly occassional glass of wine [facility] Start: 12-18-2019 End: 07-07-2022 History SDOH Social Connections Anglican 3 [facility] Start: 12-18-2019 End: 07-07-2022 History SDOH Physical Activity DPW 0 [facility] Start: 12-25-2019 History SDOH Financial 5 [facility] Start: 12-18-2019 Education 17 [facility] Start: 07-31-2017 End: 06-01-2022 Tobacco Comment Last cigar 07/17/2017 [facility] Start: 1950 Sex Assigned At Not on file [facility] Start: 09-20-2021 End: 03-30-2022 Exposure to SARS-CoV-2 (event) Not sure [facility] Start: 04-26-2021 End: 05-22-2022 Tobacco smoking status OKIS Unknown if ever smoked [facility] Work Phone: Start: 07-18-2017 None [facility] Work Phone: Start: 07-18-2017 Spouse/ Significant Other [facility] Work Phone: Start: 07-18-2017 Cigars [facility] Work Phone: Start: 1950 Sex Assigned At Male [facility] Work Phone: History of tobacco use Current smoker [facility] Work Phone: Start: 09-15-2022 End: 02-12-2025 Alcohol intake Ex-drinker (finding) [facility] Start: 09-15-2022 Alcohol Comment may have a drink once per month [facility] Start: 05-16-2020 End: 07-07-2022 Social connection and isolation panel [facility] Do you belong to any clubs or organizations such as voodoo groups, unions, fraternal or athletic groups, or school groups? Yes [facility] Are you now , , , , never or living with a partner? [facility] How often to you hav e a drink containing alcohol? Monthly or less [facility] Start: 05-12-2012 How many standard drinks containing alcohol do you have on a typical day? Patient does not drink [facility] How often do you hav e 6 or more drinks on 1 occasion? Never [facility] Do you feel stress - tense, restless, nervous, or anxious, or unable to sleep at night because your mind is troubled all the time - these days [OSQ] Not at all [facility] (I/We) worried wheth er (my/our) food would run out before (I/we) got money to buy more. Never true [facility] In the past 12 month s, was there a time when you were not able to pay the mortgage or rent on time? No [facility] Do you feel stress - tense, restless, nervous, or anxious, or unable to sleep at night because your mind is troubled all the time - these days [OSQ] Only a little [facility] Start: 01-05-2025 Tobacco smoking status NHIS Occasional tobacco smoker [facility] Medical Equipment Procedure Code Equipment Code Equipment Origin al Text Equipment Identifier Dates Stent Endopros 6 cm 8-10mm [place] - [id number] Start: 09-20-2022 Goals Date Patient Goal Desired Activity /State Personal health goal Comment on above: Formatting of this n ote might be different from the original. Continue to recover from hernia/prostatectomy surgery. Personal health goal Comment on above: Formatting of this n ote might be different from the original. Continue to work with team to manage liver and decrease need for paracentesis.thoracentesis while working towards liver transplant Personal health goal Comment on above: Formatting of this n ote might be different from the original. Patient has the following Chronic Kidney Disease goals: Two PCP visits annually Education to be provided and reviewed with patient - CKD Zones, Controlling Potassium, and CKD NILSON Education - CKD (ALL) Patient will meet these goals by: 06/10/2024 Personal health goal Personal health goal Comment on above: Formatting of this n ote might be different from the original. Continue to recover from hernia/prostatectomy surgery. Comment on above: Formatting of this n ote might be different from the original. Continue to work with team to manage liver and decrease need for paracentesis.thoracentesis while working towards liver transplant Functional Status Date Assessment Result Facility 01-23-2025 Total score [AUDIT-C] 0 01/24/20 9:42 AM Huyen Lomeli PA-C [facility] 08-01-2024 Total score [AUDIT-C] 0 08/01/19 25 12:02 PM EST [email or web address] 08-01-2024 Within the last year , have you been humiliated or emotionally abused in other ways by your partner or ex-partner? No 08/01/2024 12:02 PM EST User, [facility] 08-01-2024 Within the last year , have you been afraid of your partner or ex-partner? No 08/01/2024 12:02 PM EST [facility], [facility] 08-01-2024 Within the last year , have you been raped or forced to have any kind of sexual activity by your partner or ex-partner? No 08/01/2024 12:02 PM EST [facility] 08-01-2024 Within the last year , have you been kicked, hit, slapped, or otherwise physically hurt by your partner or ex-partner? No 08/01/2024 12:02 PM EST User, [facility] 08-01-2024 How often to you hav e a drink containing alcohol? Never 08/01/2024 12:02 PM EST User, Akira Never [facility] 08-01-2024 Functional status Patient does n ot drink 08/01/2024 12:02 PM EST User, Akira Patient does not drink [facility] 08-01-2024 How often do you hav e 6 or more drinks on 1 occasion? Never 08/01/2024 12:02 PM EST User, Akira Never [facility] 04-07-2023 Are you deaf, or do you have serious difficulty hearing No 04/07/2023 2:49 PM Katerine Escobar RN No [facility] 04-07-2023 Are you blind, or do you have serious difficulty seeing, even when wearing glasses No 04/07/2023 2:49 PM Katerine Escobar RN No [facility] 04-07-2023 Do you have serious difficulty walking or climbing stairs No 04/07/2023 2:49 PM Katerine Escobar RN No [facility] 04-07-2023 Do you have difficul ty dressing or bathing No 04/07/2023 2:49 PM Katerine Escobar RN No [facility] 04-07-2023 Because of a physica l, mental, or emotional condition, do you have difficulty doing errands alone such as visiting a physician's office or shopping No 04/07/2023 2:49 PM Katerine Escobar RN No [facility] Mental Status Date Assessment Result Facility 04-07-2023 Because of a physica l, mental, or emotional condition, do you have serious difficulty concentrating, remembering, or making decisions No 04/07/2023 2:49 PM Katerine Escobar RN No [facility] Clinical Notes 01-19-2017 to 03-13-2025 Telephone Encounter - Pily Glass RN - 02/13/2025 12:14 PM EDTTelephone Encounter - Pily Glass RN - 02/13/2025 12:14 PM EDTTelephone Encounter - Izabella Moody RPh - 02/13/2025 11:30 AM EDT Note Date & Type Note Facility 03-13-2025 Note HNO ID: [id number] Author: DANNA VELAZQUEZ RPh Service: Pharmacy Author Type: Pharmacist Type: Plan of Care Filed: 03/13/2025 14:00 Note Text: DISCHARGE MEDICATION REVIEW BY PHARMACY Patient Name: Jesus Sosa Account #: Data Unavailable Admission Date: 03/11/2025 Date of Contact: March 13, 2025 Time of Contact: 12:24 PM Medication list was reviewed by a Pharmacist for drug interactions or drug related problems:Yes Below is a summary of pharmacist recommendations discussed with LIP: No recommendations at this time from discharge medication list. Danna Velazquez RPh 03/13/2025 12:24 PM Medication List CHANGE how you take these medications tacrolimus IR 1 mg capsule Commonly known as: PROGRAF Take 2 capsules by mouth daily at 6 am AND 1 capsule daily at 6 pm. What changed: See the new instructions. CONTINUE taking these medications Amoxicillin 500 mg tablet Take 4 tablets by mouth as directed. Take 2g Amoxicillin 1 hr prior to dental procedure. aspirin 81 mg chewable tablet Chew and swallow 1 tablet by mouth once daily. CULTURELLE 10 billion cell capsule Generic drug: lactobacillus rhamnosus furosemide 20 mg tablet Commonly known as: LASIX Take 1 tablet by mouth once daily. NIFEdipine ER 30 mg 24 hr tablet Commonly known as: PROCARDIA XL Take 1 tablet by mouth once daily. pantoprazole DR 40 mg tablet Commonly known as: PROTONIX Take 1 tablet by mouth once daily. REPATHA SURECLICK 140 mg/mL pen injector Generic drug: evolocumab INJECT 140 MG SUBCUTANEOUSLY EVERY 2 WEEKS. sulfamethoxazole-trimethoprim 800-160 mg per tablet Commonly known as: BACTRIM DS Take 1 tablet by mouth every Sunday, Sunday, and Sunday. VITAMIN D3 PO STOP taking these medications peg 3350-Electrolytes 236-22.74-6.74 -5.86 gram suspension Commonly known as: [facility] 03-13-2025 Note HNO ID: [id number] Author: ALEJO ROMERO RN Service: Care Management Author Type: Registered Nurse Type: Care Mgt Progress Note Filed: 03/13/2025 11:07 Note Text: CARE MANAGEMENT DISCHARGE NOTE SERVICE DATE: March 13, 2025 SERVICE TIME: 11:06 AM Admission Date: 03/11/2025 LOS: 1 day Discharge Arrangement Discharge Arrangement: Home with Self Care Services Arranged Provider Name: leni Phone: na Caregiver Assessment Caregiver is ready, willing and able to meet the patient's needs as recommended by the inter-professional team: No Caregiver needed Transportation Arrangements Transportation Arrangements: Car Date of Trip: 03/13/25 Destination: Home Handoff Communication: Additional Information: Pt is D/c to home today with self care and with his , Stacy. No D/C needs identified. SIGNATURE: Alejo Romero RN PATIENT NAME: Jesus Sosa DATE: March 13, 2025 TIME: 11:06 AM [facility] 03-12-2025 Note HNO ID: [id number] Author: BRIAN LAUREN DO Service: Hospital Medicine Author Type: Physician Type: Progress Notes Filed: 03/12/2025 18:38 Note Text: DEPARTMENT OF HOSPITAL MEDICINE Hospital Medicine/Primary Attending: Brian Lauren DO NIGHT AND WEEKEND COVERAGE: After 7pm please page [phone] MEDICATIONS: Current Facility-Administered Medications Medication Dose Route Frequency lactobacillus rhamnosus 10 billion cell (CULTURELLE) capsule 1 capsule ORAL DAILY sulfamethoxazole-trimethoprim 800-160 mg 1 tablet (BACTRIM DS) 1 tablet ORAL MO-WE- furosemide 20 mg tab(s) (LASIX) 20 mg ORAL DAILY NIFEdipine ER 30 mg tab(s) (PROCARDIA XL) 30 mg ORAL DAILY pantoprazole DR 40 mg tab(s) (PROTONIX) 40 mg ORAL DAILY tacrolimus IR 2 mg cap(s) (PROGRAF) 2 mg ORAL DAILY (6 AM) And tacrolimus IR 1 mg cap(s) (PROGRAF) 1 mg ORAL DAILY AT 6 PM aspirin, enteric coated 81 mg tab(s) 81 mg ORAL DAILY nicotine 21 mg/24 hr 1 patch (NICODERM) 1 patch TRANSDERMAL DAILY And nicotine -- REMOVE patch OTHER DAILY And nicotine - verify patch OTHER q 8 H NaCl 0.9% iv flush bag 20 mL INTRAVENOUS PRN sodium chloride 0.9 % (flush) 2-10 mL (BD POSIFLUSH) 2-10 mL INTRAVENOUS DIRECTED PRN nitroglycerin sublingual 0.4 mg tab(s) (NITROQUICK) 0.4 mg SUBLINGUAL q 5 MIN PRN atropine 0.4 mg injection 0.4 mg INTRAVENOUS PRN(NO DISPENSE) DATA: Diagnostic tests reviewed for today's visit: Lab data: CBC: Recent Labs 03/12/25 0514 03/11/25 1702 03/10/25 0834 WBC 7.08 6.44 7.80 HB 14.4 15.0 14.9 HCT 42.9 44.2 44.0 PLT 219 221 235 MCV 91.3 91.7 91.7 RDWCV 13.0 13.0 13.2 NEUTP -- -- 64.8 ABSNEUT -- -- 5.07 LYMPHP -- -- 20.3 MONOP -- -- 11.2 EODINP -- -- 2.2 COAG: Recent Labs 03/12/25 0514 03/11/25 2310 03/11/25 170 APTT 53.7* 53.2* 29.2 INR -- -- 1.0 BMP: Recent Labs 03/10/25 0834 GLUC 139* NA 140 K 4.6 CHLOR 104 CO2 23 ANION 13 BUN 22 CREAT 1.51* CHEM: Recent Labs 03/10/25 0834 ALB 4.4 TPROT 6.6 CA 9.5 MG 1.8 HEPATIC: Recent Labs 03/10/25 0834 ALKPHOS 80 ALT 11 AST 13* TBILI 0.3 URINALYSIS:No results for input(s): PH, SPGR, UGLUC, UBILI, UKET, UHB, UPROT, UROBIL, UWBC, SSA in the last 168 hours. Invalid input(s): NITR CARDIAC: Recent Labs 03/11/25 1044 PBNP 79 Problem List Coronary artery disease of [place] artery of [place] heart with stable angina pectoris (POA: Yes) Pain (POA: Yes) PHYSICAL EXAM: BP 133/70 Pulse 61 Temp (Src) 97.6 (Oral) Resp 16 Ht 5' 8 (1.73m) Wt 218 lb (98.9kg) SpO2 96% BMI 33.15 kg/(m2). O2 Therapy: Room Air Follow up : Pt seen and examined. No significant dz noted on LHC. Doing well post cath. Constitutional - Vitals as above, NAD Respiratory - Clear to auscultate both sides. No crackles, wheezes or rales, No labored breathing noted CVS- RRR, no murmur/gallop/rub, pulse 2+ GI- NTND, bowel sounds normally heard Exogenous Class 1 Obesity HOSPITAL COURSE: 75 yo M w/ PMH of CAD HFpEF, nonalcoholic steatohepatitis ([place]), liver transplant March 2023, hypertension, dyslipidemia. presented w/ chest pain. Underwent LHC which did not reveal any significant disease. Doing well post procedure. ACS r/o HST 13>13>14 EKG-No ischemic changes noted s/p MICHELLE to LAD and diagonal branch 2017 LHC unremarkable Currently not on beta analia 2/2 to bradycardia -continue ASA, repatha (statin intolerance) HTN -Continue lasix 20mg every day, Nifed 30mg every day Liver Transplant 2022 [place] -Continue Bactrim DS MWF -Continue Tracolimus 1g @ 6Pm and 2g @ 6am VTE Prophylaxis: Early Ambulation Disposition: Home Plan of care discussed with: Provider, RN, Patient Medication and Non-Pharmacologic VTE Prophylaxis/Anticoagulants Anticoagulant AND Antiplatelet Medications (From admission, onward) Start Dose Route Frequency Last Action Ordered Stop 03/12/25 0900 aspirin, enteric coated 81 mg tab(s) 81 mg PO DAILY Given, 03/12 1028 03/11/25 1514 -- SIGNATURE: Brian Lauren DO PATIENT NAME: Jesus Sosa DATE: March 12, 2025 TIME: 6:27 PM PAGER/CONTACT #: Team color pager Disclaimer: Portions of this note may have been generated using [employer] voice recognition software. Reasonable efforts were made to correct any dictation errors that resulted due to the programming of this software but some may still be present. Please note, the time of this note does not reflect the time I saw this patient today, but the time of this documentation. [facility] 03-12-2025 Note HNO ID: [id number] Author: BRITTANY BAEZ RN Service: Care Management Author Type: Registered Nurse Type: Care Mgt Progress Note Filed: 03/12/2025 14:50 Note Text: CARE MANAGEMENT UTILIZATION REVIEW COMMITTEE Condition Code 44 (Admission Status Discrepancy Review) Admission Date: 03/11/2025 Patient's Initial Order is: Inpatient Date Requested: 03/12/25 Date Reviewed: 03/12/25 Dr. Brian Lauren, the practitioner responsible for the care of the patient, was consulted and concurs with the determination made by the Utilization Management Committee. Under the authority of the Utilization Management Committee, the Physician Advisor, Dr. Emerson Javier III, has reviewed the medical record of the above patient. The Physician Advisor has made the following recommendation based on the currently available medical information as of the date of this determination. Recommended Status: Observation Rationale for this decision: Lack of medical necessity for inpatient admission SIGNATURE: Brittany Baez RN PATIENT NAME: Jesus Sosa DATE: March 12, 2025 TIME: 2:50 PM Disclaimer: The information in this determination is to be used for utilization management purposes only. The information and recommendation is made pursuant to Medicare Hospital Conditions of Participation (442 CFR Part 482) and is neither a judgment nor an assessment with regard to the appropriateness or quality of the clinical care. Nothing in this document may be used to limit clinical services provided to the above named patient. This form should be used as one part of the process utilized to ensure compliance with [facility] policy regarding Inpatient Admission and Observation Services. The definitions of Inpatient and Observation used in making the determination above are those provided in Medicare Benefit Policy Manual Chapter 1, Section 1 and 10, Chapter 6, Section 20, and the Medicare Claims Processing Manual Chapter 1, Section 50.3 and Chapter 4, Section 290. This recommendation should be considered as only one factor in determining the patient's final level of service along with other pertinent documentation such as the treating physician's order as documented evidence of concurrence. [facility] 03-12-2025 Note HNO ID: [id number] Author: ALEJO ROMERO RN Service: Care Management Author Type: Registered Nurse Type: Care Mgt Initial Assessment Filed: 03/12/2025 12:49 Note Text: CARE MANAGEMENT: ASSESSMENT AND DISCHARGE PLAN SERVICE DATE: March 12, 2025 SERVICE TIME: 12:46 PM PCP: Willem Madsen MD Primary Contact: Extended Emergency Contact Information Primary Emergency Contact: Stacy Sosa Address: [place] [id number] [facility] Mobile Relation: Spouse Secondary Emergency Contact: Tremayne Gonzalez Mobile Relation: Brother Admission Status: Inpatient Insurance Provider: MEDICARE A AND B Discharge Planning requested by: Per Department Practice Potential Transition Plans Home Advance Directives Current Living Arrangements and Support Lives with: Spouse/significant other Type of Residence: Private Residence (House) Does the patient have to climb stairs at home?: Yes (Manages stairs fine) Support: [employer] community, Family members, Spouse/significant other, Friends/neighbors How do you manage to accomplish the following: Independent: Ambulation, Bathe/Shower, Dress, Meals/Meal Prep, Going to the bathroom, Medication Management, Transportation to appointments/community Current Services/Equipment Current Post-Acute Service(s): None Discharge Planning Patient Goal(s): Be able to go home, General wellness [place] Explained: Are you interested in bedside delivery of your medications? Yes Discharge Planning Participant(s): Spouse/significant other Patient/Family Comments: Met with spouse at bedside as pt down for heart cath. Caregiver Assessment: Caregiver is ready, willing and able to meet the patient's needs as recommended by the inter-professional team: No Caregiver needed Name of Caregiver: Stacy Transport at Discharge: Transportation Arrangements: Car Destination: Home Needs Prior to Discharge: Post-Acute Discharge Plan: Met with pt's , Stacy at bedside, pt off unit for heart cath. Pt lives at home with spouse, [employer],and manages stairs fine. Liver transport a couple of years ago and pt seems to be doing fine. No DME, +PCP and uses [facility] for delivery and locally uses the [facility] in [place]. No Transitional D/C needs identified. will transport home when ready. SIGNATURE: Alejo Romero RN PATIENT NAME: Jesus Sosa DATE: March 12, 2025 TIME: 12:46 PM [facility] 02-13-2025 Telephone encounter Note Patient's request for medication is as follows: Requested Prescriptions Pending Prescriptions Disp Refills pantoprazole DR (PROTONIX) 40 mg tablet 30 tablet 5 Sig: Take 1 tablet by mouth once daily. Please approve the above prescription(s) to electronically send to pharmacy. Further refills to come from Hepatology or PCP. Pily Glass RN [facility] 02-13-2025 Miscellaneous Notes Patient's request for medication is as follows: Requested Prescriptions Pending Prescriptions Disp Refills pantoprazole DR (PROTONIX) 40 mg tablet 30 tablet 5 Sig: Take 1 tablet by mouth once daily. Please approve the above prescription(s) to electronically send to pharmacy. Further refills to come from Hepatology or PCP. Pily Glass RN Patient requests refill of: Requested Prescriptions Pending Prescriptions Disp Refills pantoprazole DR (PROTONIX) 40 mg tablet 30 tablet 5 Sig: Take 1 tablet by mouth once daily. If approved, please e-script the attached order to [facility]. Thank you, Izabella Moody [facility] [phone] documented in this encounter [facility] 02-13-2025 Telephone encounter Note Patient requests refill of: Requested Prescriptions Pending Prescriptions Disp Refills pantoprazole DR (PROTONIX) 40 mg tablet 30 tablet 5 Sig: Take 1 tablet by mouth once daily. If approved, please e-script the attached order to [facility]. Thank you, Izabella Moody [facility] [phone] [facility] 02-12-2025 Nurse Note AMBULATORY PATIENT EDUCATION NOTE TOPIC: GI PROCEDURES: Colonoscopy with or without biopsies based on clinical findings READINESS TO LEARN INSTRUCTION PROVIDED TO: Patient, readness to learn accessed prior to procedure, Family member, and Patient and family member COGNITIVE ABILITY: Alert and oriented PTED MOTIVATION TO LEARN: Interested FAMILY SUPPORT: High - Very involved in pt care IPATIENT LEARNS BEST BY: Individual Instruction Written Instruction - Hand-outs Verbal Instruction FACTORS AFFECTING LEARNING: None PHYSICAL LIMITATIONS AFFECTING LEARNING: None LEARNING RESPONSE METHOD OF INSTRUCTION: Individual instruction PATIENT / FAMILY RESPONSE: Verbalizes understanding of: WORSENING CONDITION-Signs and symptoms of a worsening condition that warrant a call to the physician FOLLOW-UP PLAN: Recommend - Recommend continued instruction and follow up as directed SUPPLEMENTAL MATERIAL: Procedure Discharge Instructions REFERRAL (RECOMMENDATION): None Electronically Signed By: Maria Luisa Dean LPN [facility] 02-12-2025 Nurse Note AMBULATORY PATIENT EDUCATION NOTE TOPIC: GI PROCEDURES: Colonoscopy with or without biopsies based on clinical findings READINESS TO LEARN INSTRUCTION PROVIDED TO: Patient, readness to learn accessed prior to procedure, Family member, and Patient and family member COGNITIVE ABILITY: Alert and oriented PTED MOTIVATION TO LEARN: Interested FAMILY SUPPORT: High - Very involved in pt care IPATIENT LEARNS BEST BY: Individual Instruction Written Instruction - Hand-outs Verbal Instruction FACTORS AFFECTING LEARNING: None PHYSICAL LIMITATIONS AFFECTING LEARNING: None LEARNING RESPONSE METHOD OF INSTRUCTION: Individual instruction PATIENT / FAMILY RESPONSE: Verbalizes understanding of: WORSENING CONDITION-Signs and symptoms of a worsening condition that warrant a call to the physician FOLLOW-UP PLAN: Recommend - Recommend continued instruction and follow up as directed SUPPLEMENTAL MATERIAL: Procedure Discharge Instructions REFERRAL (RECOMMENDATION): None Electronically Signed By: Maria Luisa Dean LPN PRE OP LEARNING ASSESSMENT PROCEDURE/SURGERY: GI PROCEDURES: Colonoscopy READINESS TO LEARN COGNITIVE ABILITY: Alert and oriented MOTIVATION TO LEARN: Eager FAMILY SUPPORT: Unable to assess - Family not present PATIENT LEARNS BEST BY: Individual Instruction FACTORS AFFECTING LEARNING: None PHYSICAL LIMITATIONS AFFECTING LEARNING: None Electronically Signed By: Juliet Chowdhury RN In Department: GASTROENTEROLOGY documented in this encounter [facility] 02-12-2025 History and physical note HISTORY AND PHYSICAL Jesus Sosa, 75 year old male Current history and physical on file: Yes Is a new History and Physical required for today's visit? Yes Indication for procedure: Screening PROCEDURE(S) SCHEDULED FOR: Colonoscopy with or without biopsies and with or without removal of polyps or lesions, dilation (any means), treatment of bleeding (any means), based on clinical findings. BASELINE BEHAVIOR: Calm BASELINE ORIENTATION: A & O x3 All medications and allergies reviewed: Yes Skin Assessment: Warm dry mucus membranes pink Airway/Respiratory Assessment: Airway: visualization of the uvula- Yes Mouth: opening greater than 2 fingerbreadths- Yes Neck: full range of motion- Yes Breath sounds clear/equal- Yes Cardiac Assessment: Regular rate and rhythm without murmur Abdominal Assessment: Abdomen soft, non-tender, no masses or organomegaly. Sedation Plan: Moderate Additional Comments: None Ladarius Uriarte MD [facility] Work Phone: 02-12-2025 History and physical note HISTORY AND PHYSICAL Jesus Sosa, 75 year old male Current history and physical on file: Yes Is a new History and Physical required for today's visit? Yes Indication for procedure: Screening PROCEDURE(S) SCHEDULED FOR: Colonoscopy with or without biopsies and with or without removal of polyps or lesions, dilation (any means), treatment of bleeding (any means), based on clinical findings. BASELINE BEHAVIOR: Calm BASELINE ORIENTATION: A & O x3 All medications and allergies reviewed: Yes Skin Assessment: Warm dry mucus membranes pink Airway/Respiratory Assessment: Airway: visualization of the uvula- Yes Mouth: opening greater than 2 fingerbreadths- Yes Neck: full range of motion- Yes Breath sounds clear/equal- Yes Cardiac Assessment: Regular rate and rhythm without murmur Abdominal Assessment: Abdomen soft, non-tender, no masses or organomegaly. Sedation Plan: Moderate Additional Comments: None Ladarius Uriarte MD documented in this encounter [facility] 02-12-2025 Nurse Note PRE OP LEARNING ASSESSMENT PROCEDURE/SURGERY: GI PROCEDURES: Colonoscopy READINESS TO LEARN COGNITIVE ABILITY: Alert and oriented MOTIVATION TO LEARN: Eager FAMILY SUPPORT: Unable to assess - Family not present PATIENT LEARNS BEST BY: Individual Instruction FACTORS AFFECTING LEARNING: None PHYSICAL LIMITATIONS AFFECTING LEARNING: None Electronically Signed By: Juliet Chowdhury RN In Department: GASTROENTEROLOGY [facility] 02-06-2025 Instructions Willem Madsen MD - 02/06/2025 10:35 AM EDT Screening schedule The following prevention plan is recommended: There are no preventive care reminders to display for this patient. WHAT YOU CAN DO TO PREVENT FALLS Many falls can be prevented. By making some changes, you can lower your chances of falling. Four things YOU can do to prevent falls for you* and your caregiver 1. Begin a regular exercise program Exercise is one of the most important ways to lower your chances of falling. It makes you stronger and helps you feel better. Exercises that improve balance and coordination (like [place]) are the most helpful. Lack of exercise leads to weakness and increases your chances of falling. Ask your doctor or health care provider about the best type of exercise program for you. 2. Have your health care provider review your medicines Have your doctor or pharmacist review all the medicines you take, even [id number] medicines. As you get older, the way medicines work in your body can change. Some medicines, or combinations of medicines, can make you sleepy or dizzy and can cause you to fall. 3. Have your vision checked Have your eyes checked by an eye doctor at least once a year. You may be wearing the wrong glasses or have a condition like glaucoma or cataracts that limits your vision. Poor vision can increase your chances of falling. 4. Make your home safer About half of all falls happen at home. To make your home safer: Remove things you can trip over (like papers, books, clothes, and shoes) from stairs and places where you walk. Remove small throw rugs or use double-sided tape to keep the rugs from slipping. Keep items you use often in cabinets you can reach easily without using a step stool. Have grab bars put in next to your toilet and in the tub or shower. Use non-slip mats in the bathtub and on shower floors. Improve the lighting in your home. As you get older, you need brighter lights to see well. Hang light-weight curtains or shades to reduce glare. Have handrails and lights put in on all staircases. Wear shoes both inside and outside the house. Avoid going barefoot or wearing slippers. For more information, contact: Centers for Disease Control and Prevention www.cdc.gov/injury * This information may not apply if you have certain medical conditions. documented in this encounter [facility] 02-06-2025 History of Presen t illness Narrative Subjective Jesus Sosa is a 75 year old male. He was doing well, and exercising regularly. Weight has been creeping up. Glucoses have been borderline elevated. Hypertension and hyperlipidemia were controlled. Review of Systems Constitutional: Negative for activity change, appetite change, fatigue and unexpected weight change. Respiratory: Negative for cough and shortness of breath. Cardiovascular: Positive for leg swelling. Negative for chest pain and palpitations. Gastrointestinal: Negative for abdominal pain, constipation, diarrhea, nausea and vomiting. Neurological: Negative for dizziness and headaches. ACTIVE PROBLEM LIST Mixed Hyperlipidemia Primary Hypertension Stented Coronary Artery Coronary Artery Disease Involving [place] Coronary Artery of [place] Heart Without Angina Pectoris Obesity, Class I, Bmi 30-34.9 Ckd (Chronic Kidney Disease) Stage 3, Gfr 30-59 Ml/Min (Hcc) Vanessa (Obstructive Sleep Apnea) Nonalcoholic Fatty Liver Disease Without Nonalcoholic Steatohepatitis ([place]) Vitamin D Deficiency Liver Cirrhosis Secondary to [place] (Hcc) H/O Prostatectomy Liver Transplant Recipient (Hcc) Immunosuppression (Hcc) Chronic Diastolic Congestive Heart Failure (Hcc) Basal Cell Carcinoma of Multiple Sites of Head and Neck Edema of Both Legs Osteopenia of Multiple Sites Right Heart Failure (Hcc) Social History Tobacco Use Smoking status: Some Days Types: Cigars Smokeless tobacco: Never Tobacco comments: Last cigar 07/17/2017 Vaping Use Vaping status: Never Used Substance Use Topics Alcohol use: Not Currently Alcohol/week: 2.3 standard drinks of alcohol Types: 1 Glasses of Wine (5oz), 1 Mixed Drinks per week Comment: may have a drink once per month Drug use: No Current Outpatient Medications Medication Sig peg 3350-Electrolytes (GOLYTELY) 236-22.74-6.74 -5.86 gram suspension Refer to printed prep instructions from your provider. sulfamethoxazole-trimethoprim (BACTRIM DS) 800-160 mg per tablet Take 1 tablet by mouth every Sunday, Sunday, and Sunday. NIFEdipine ER (PROCARDIA XL) 30 mg 24 hr tablet Take 1 tablet by mouth once daily. REPATHA SURECLICK 140 mg/mL pen injector INJECT 140 MG SUBCUTANEOUSLY EVERY [address] (PROTONIX) 40 mg tablet Take 1 tablet by mouth once daily. tacrolimus IR (PROGRAF) 1 mg capsule Take 2 capsules by mouth daily at 6 am AND 1 capsule daily at 6 pm. cholecalciferol, vitamin D3, (VITAMIN D3 ORAL) Take by mouth once daily. Amoxicillin 500 mg tablet Take 4 tablets by mouth as directed. Take 2g Amoxicillin 1 hr prior to dental procedure. lactobacillus rhamnosus (CULTURELLE) 10 billion cell capsule Take 1 capsule by mouth once daily. aspirin 81 mg chewable tablet Chew and swallow 1 tablet by mouth once daily. furosemide (LASIX) 20 mg tablet Take 1 tablet by mouth once daily. No current facility-administered medications for this visit. Objective BP 124/83 Pulse 71 Resp 16 Ht 173.4 cm (5' 8.25) Wt 101.7 kg (224 lb 3.3 oz) SpO2 94% BMI 33.84 kg/m Physical Exam Constitutional: General: He is not in acute distress. Appearance: He is not ill-appearing. Eyes: General: No scleral icterus. Cardiovascular: Rate and Rhythm: Normal rate and regular rhythm. Heart sounds: S1 normal and S2 normal. No murmur heard. No gallop. Pulmonary: Effort: No respiratory distress. Breath sounds: No wheezing or rales. Abdominal: Palpations: Abdomen is soft. Tenderness: There is no abdominal tenderness. Musculoskeletal: Right lower le+ Pitting Edema present. Left lower le+ Pitting Edema present. Neurological: Mental Status: He is alert. Gait: Gait normal. Latest Ref Rng 01/12/2025 Protein, Total 6.3 - 8.0 g/dL 6.3 Albumin 3.9 - 4.9 g/dL 4.1 Calcium 8.5 - 10.2 mg/dL 9.0 Bilirubin, Total 0.2 - 1.3 mg/dL 0.4 Alkaline Phosphatase 38 - 113 U/L 78 AST 14 - 40 U/L 12 (L) ALT 10 - 54 U/L 9 (L) Glucose 74 - 99 mg/dL 122 (H) BUN 9 - 24 mg/dL 20 Creatinine 0.73 - 1.22 mg/dL 1.50 (H) Sodium 136 - 144 mmol/L 141 Potassium 3.7 - 5.1 mmol/L 4.4 Chloride 98 - 107 mmol/L 103 CO2 22 - 30 mmol/L 24 Anion Gap 8 - 15 mmol/L 14 eGFR >=60 mL/min/1.73m 48 (L) Legend: (L) Low (H) High ASSESSMENT/PLAN: 1. Medicare annual wellness visit, subsequent - ICD9: V70.0, ICD10: Z00.00 (primary diagnosis) - See wellness. 2. Chronic diastolic congestive heart failure (HCC) - ICD9: 428.32, 428.0, ICD10: I50.32 - Compensated - Continue current medications - FUROSEMIDE 20 MG TABLET 3. Screening for depression - ICD9: V79.0, ICD10: Z13.31 - DEPRESSION SCREENING 4. Encounter for screening examination for other mental health and behavioral disorders - ICD9: V79.8, ICD10: Z13.39 - ANXIETY SCREENING 5. Primary hypertension - ICD9: 401.9, ICD10: I10 - Controlled - Continue current medications - NIFEDIPINE ER 30 MG TABLET,EXTENDED RELEASE 24 HR 6. Coronary artery 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 artery of [place] heart without angina pectoris - ICD9: 414.01, ICD10: I25.10 - Stable. 7. Mixed hyperlipidemia - ICD9: 272.2, ICD10: E78.2 - Controlled - Continue current medications - LIPID PANEL, FASTING 8. Right-sided heart failure, unspecified HF chronicity (HCC) - ICD9: 428.0, ICD10: I50.810 - Compensated - Continue current medications 9. Obesity, Class I, BMI 30-34.9 - ICD9: 278.00, ICD10: E66.811 Weight increasing - Behavioral intervention - We discussed GLP1. He will review with transplant. 10. Prediabetes - ICD9: 790.29, ICD10: R73.03 - Low carb diet. Monitor. - HEMOGLOBIN A1C Willem Madsen MD Images from the original note were not included. Jesus Sosa is a 75 year old male here for a Medicare wellness visit. Medicare Health Risk Assessment General Health Good Exercise: Minutes/Day 50 min Exercise: Days/Week 3 days Alcohol: Daily Use Never Alcohol: Drinks/Day Patient does not drink Alcohol: 6 or more drinks Never Feel off balance No Concerns: Teeth/Dentures No Concerns: Sexual function No Troubled by feelings None of the above Frequency: Eating healthy diet Nearly every day ADLs requiring help None of the above Safety precautions in home/vehicle Yes Smoke, vape, chews tobacco No Difficulty hearing Yes, I wear a hearing aid Difficulty seeing No Current Providers Specialists: I have reviewed specialist-related care of the patient in the medical record. Current care team: Patient Care Team: Willem Madsen MD as PCP - Pily Velez RN as Registered Nurse (Transplant Center) Marco Antonio Landry MD as Referring (General Surgery) Kristen Bañuelos, THERAPEUTIC RECREATION SPECIALIST.EMISSIONS TECHNICIAN as Tin Plater (Internal Medicine) Demetrius Goldberg MD (Cardiology) Outside specialists seen: Chong Curry MD (Pulmonary, Sleep Medicine, [facility]) Perez Martinez MD (Dermatology) Leslee Ramirez MD (Dermatologic Plastic Surgery) Rivera Iglesias Turbine Room Attendant Molina Mckeon OD (Optometry) DME supplier: [employer]. Medical/Family history review Reviewed and updated problem list, medical/surgical/family/social history, medications, and allergies. Opioid use review Opioid Medications (last 90 days) No data to display Anxiety/Depression screening PHQ-9 Score: 1 (Minimal Depression) OTTONIEL-7 Score: 1 (Minimal Anxiety) Recommendation: no further intervention at this time Cognitive screening Mini Cog Score: 5 Cognitive screening reviewed and No further action needed (score 3-5). Functional Observation Was the patient's Timed Up & Go test unsteady or >= 12 seconds? No Advance Care Planning Surrogate decision maker and/or advance care plan documented Measurements BP 124/83 Pulse 71 Resp 16 Ht 173.4 cm (5' 8.25) Wt 101.7 kg (224 lb 3.3 oz) SpO2 94% BMI 33.84 kg/m Vision Screening: Follows with optometry/ophthalmology Right: 20/22 Left: 20/ 20 Both: 20/25 Assessment/Plan Medicare annual wellness visit, subsequent (Z00.00) - Counseled on healthy diet and regular exercise - Fall avoidance information provided - Personalized prevention plan provided - Discussed need for and benefit of weight loss. BMI 33.84 kg/(m^2) Willem Madsen MD documented in this encounter [facility] 01-23-2025 Instructions Huyen Tamayo PA-C - 01/23/2025 9:52 AM EDT Images from the original note were not included. [facility]esthesia Consultation [facility] PATIENT PREOPERATIVE INSTRUCTIONS Ladarius Uriarte MD has scheduled you for your procedure at this surgery center: [facility] Scheduling Office: [phone] --[address] [place] [address]. Please read below carefully for your personalized instructions. Dietary Restrictions: - Follow bowel prep instructions: clear liquids need to be stopped 2 hours prior to schedule arrival at facility Medications: Unless instructed differently below, stay on all of your medications until your surgery. If you start any new medications after today's visit, please contact your surgeon. Pre-Surgery Med Instructions Medication Instructions sulfamethoxazole-trimethoprim (BACTRIM DS) 800-160 mg per tablet You are not due to take this the morning of your procedure Please continue this medication as prescribed by your physician NIFEdipine ER (PROCARDIA XL) 30 mg 24 hr tablet Ok to take the evening before surgery as usual REPATHA SURECLICK 140 mg/mL pen injector You are not due to take this the morning of your procedure Please continue this medication as prescribed by your physician pantoprazole DR (PROTONIX) 40 mg tablet If you normally take this medication in the morning, take the morning of surgery. tacrolimus IR (PROGRAF) 1 mg capsule If you normally take this medication in the morning, take the morning of surgery. Follow your transplant team's instructions furosemide (LASIX) 20 mg tablet Please hold this the morning of your procedure aspirin 81 mg chewable tablet If you normally take this medication in the morning, take the morning of surgery. If you take any medications for erectile dysfunction-Cialis (Tadalafil), Levitra, Staxyn (Vardenafil) Viagra (Sildenenafil please do not take these for 48 hours before surgery. If you start any new medications after today's visit, please contact the surgeon's office. If you are currently using a qoge-gwk-eaht injectable or oral medication for diabetes or weight loss such as Dulaglutide (Trulicity), Exenatide (Byetta, Bydureon), Liraglutide (Victoza, Saxenda), Semaglutide (Ozempic, Wegovy, Rybelsus), or Tirzepatide (Mounjaro), the medicine should be stopped at least 7 days before surgery. These medicines can cause food to remain in your stomach for a very long time and increase the risks from surgery and anesthesia. Not stopping the medication for a long enough time may result in your surgery being rescheduled. Blood Thinning Medications: Please follow your prep instructions regarding which cqkj-zto-beaabou supplements and blood thinners you need to avoid prior to your upcoming procedure - Stop NSAIDS (Ibuprofen, Advil, Aleve, Motrin, Celebrex, Mobic, etc.) 7 days before surgery, as directed by your surgeon. - Do NOT stop aspirin or other anticoagulants without consulting with your cabbage salter or prescribing physician. - Stop ALL herbal and dietary supplements 7 days before surgery. - You may take Tylenol (Acetaminophen) or any of your pain medications that do not contain aspirin or NSAIDS as needed. Important Reminders: - If you use CPAP/BIPAP, bring the machine with you to the surgery center. - If you are prescribed inhalers for breathing, continue using them. - Candy, mints, and tobacco products are NOT permitted the morning of surgery. - Hearing aids, dentures and glasses may be worn the morning of surgery. - NO jewelry, body piercings, makeup, hairpins or contacts are to be worn the day of surgery. If you develop symptoms such as a fever, cold, or flu, or have other changes to your health within TWO DAYS of scheduled surgery or the morning of surgery, please contact the surgery center above. Personal Belongings: -Please have photo ID and insurance cards. -If you do not have a copy of advance directives on file with us, please bring a copy with you on the day of surgery. - Leave ALL valuables and money at home or with family members. - Please bring high-quality footwear, such as sneakers, to the hospital for ambulating post-surgery. For Outpatient Procedures: - YOU MUST HAVE A RESPONSIBLE LOGISTICS MANAGER TAKE YOU HOME. A CYLINDER DIE MACHINE OPERATOR OR BLOCKER METAL BASE CANNOT BE MADE A RESPONSIBLE LOGISTICS MANAGER. - We recommend that a responsible person stays with you overnight to take care of you. - You cannot stay in a hotel alone after outpatient surgery. You will not be permitted to have your surgery, if you do not have someone to take care of you. Arrival Time for Surgery: - To obtain your arrival time for surgery, call your physician's office the day before your surgery. - If you have received different instructions about finding out your arrival time from your surgeon, please follow those instructions. - If your surgery is scheduled for Sunday, call the Sunday before. Your surgeon s stable cleaner will tell you what time to call the office. - If you have not reached the departmental stable cleaner by 5 P.M., call [phone] after 5 P.M. the day before your surgery. Please be aware that emergency situations arise, which may delay or change your surgical time. If this happens, we will notify you as soon as possible and regret any inconvenience. Huyen Tamayo PA-C documented in this encounter [facility] 01-23-2025 History and physical note PREANESTHESIA CONSULT CLINIC TELEHEALTH VISIT Patient has been identified by name and date of : Yes This is a virtual visit using [employer] Video Visit. It require patient-provider interaction for the medical decision making as documented below. Reason for contact: PACC visit Accompanied by: Self Scheduled Surgery: Colonoscopy I have communicated my name and active licensure. The patient's identity and physical location were verified at the time of this visit. Either the patient or their legal solar sales representative has been informed of the risks and benefits of -- and alternatives to -- treatment through a remote evaluation and consents to proceed with the evaluation remotely. Recording using ambient [employer] software for draft documentation of the visit was discussed with the patient/authorized solar sales representative; all questions welcomed and answered. Patient/authorized solar sales representative agreed to proceed ASSESSMENT: 1. VANESSA (obstructive sleep apnea) (G47.33) - Patient uses CPAP; advised to bring device to surgery center for colonoscopy in case needed to maintain oxygenation. 2. Obesity, Class I, BMI 30-34.9 (E66.811) - BMI 34.2 (height 5'7, weight 218 lbs). - Engages in regular exercise (treadmill and recumbent stair stepper 3x/week). 3. Coronary artery 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 artery of [place] heart without angina pectoris (I25.10) - History of LAD and diagonal stents placed in 2018. - No angina or chest pain reported. - Continue aspirin daily. - Reviewed Cardiology notes from Dr. Goldberg from 2 weeks ago. No acute concerns noted. Last EF normal in 2022 4. Chronic diastolic congestive heart failure (HCC) (I50.32) 5. Right-sided heart failure, unspecified HF chronicity (HCC) (I50.810) - Stable on Lasix and low sodium diet. - No CP, Shortness of Breath, orthopnea, PND, or acute fluid retention. - Reviewed Cardiology notes from Dr. Goldberg from 2 weeks ago. - Hold Lasix on morning of colonoscopy. - Echocardiogram 03/2023 showed right ventricle normal in size, normal systolic function, RVSP 22 mmHg, normal LV EF of 61% 6. Primary hypertension (I10) - Home BP readings typically 120-130s/70s-80s; recent elevated reading of 146/83 this morning. - Continue nifedipine XL 30 mg nightly. - Advised to monitor BP and report consistently elevated readings. - BP ok to proceed. 7. Mixed hyperlipidemia (E78.2) - Continue Repatha 140 mg SQ every 2 weeks; next dose due 02/05. 8. History of cirrhosis (Z87.19) 9. Liver transplant recipient (HCC) (Z94.4) 10. Immunosuppression (HCC) (D84.9) - history of cirrhosis secondary to fatty liver disease. - Orthotopic liver transplant in March 2023. - Continue tacrolimus 2 mg in AM, 1 mg in PM; may take AM dose on day of colonoscopy, but advised to follow transplant team's instructions if they differ. - Continue pantoprazole 40 mg daily. Patient denies GERD symptoms - Advised to periodically check with transplant team regarding continuation of pantoprazole. 11. Stage 3a chronic kidney disease (HCC) (N18.31) - Most recent GFR 48, stable. (Previous 52, 49) - Advised to maintain hydration and avoid NSAIDs. METS: Walk indoors, such as around the house (1.75 METs) Do light work around the house, such as dusting or washing dishes (2.70 METs) Take care of self; that is eating, dressing, bathing, using the toilet (2.75 METs) Walk a block or two on level ground (2.75 METs) Do moderate work around the house such as vacuuming, sweeping floors, or carrying in groceries (3.50 METs) Do yardwork, such as raking leaves, weeding,or pushing a power mower (4.50 METs) Climb a flight of stairs or walk up a hill (5.50 METs) Do heavy work around the house, such as scrubbing floors, lifting or moving heavy furniture (8.00 METs) Patient denies any chest pain or undue shortness of breath with the above physical activity. 1/2 hour on treadmill at the gym - 1.5 miles in 30 minutes, 20 minutes on recumbent stair stepper 3 times per week Chronic mild edema - unchanged, stable Denies orthopnea, syncope, fluid retention ANESTHESIA FINDINGS: Intubation History: Airway (03/31/2023 6:20 PM) Final Airway Details Final airway type: endotracheal airway Final Endotracheal Airway: ETT Cuffed: yes Successful intubation technique: video laryngoscopy Devices used: Abril Endotracheal tube insertion site: oral Blade: Caitlin Blade size: #4 ETT size (mm): 7.5 Measured from: lips Measurement (cm): 22 Placement verified by: capnometry Cormack-Lehane Classification: grade I - full view of glottis Number of attempts at approach: 1 Significant Anesthesia Considerations: None Airway Exam: General: Normal appearance Mallampati Score is CLASS III ULBT: Class I - Lower incisors can bite the upper lip above the dean line Neck: full ROM, short neck Mouth: Large tongue size and Mouth opening greater than 2 finger breaths, +mustache Dentition: Intact Airway History: No abnormal airway history STOP BANG Score: VANESSA uses CPAP/BiPAP Subjective CHIEF COMPLAINT: Patient presents with: Pre-Op Visit HPI: This is a 75 year old male who presents for PACC prior to routine colonoscopy, his third, with the first in 2016 showing polyps, but the second in 2019 showing no polyps. He denies any family history of colon cancer and reports no symptoms of diarrhea, constipation, rectal bleeding, or abdominal pain. He elects to proceed with above procedure. ACTIVE PROBLEM LIST Mixed Hyperlipidemia Primary Hypertension Stented Coronary Artery Coronary Artery Disease Involving [place] Coronary Artery of [place] Heart Without Angina Pectoris Obesity, Class I, Bmi 30-34.9 Ckd (Chronic Kidney Disease) Stage 3, Gfr 30-59 Ml/Min (Hcc) Vanessa (Obstructive Sleep Apnea) Nonalcoholic Fatty Liver Disease Without Nonalcoholic Steatohepatitis ([place]) Vitamin D Deficiency Liver Cirrhosis Secondary to [place] (Hcc) H/O Prostatectomy Liver Transplant Recipient (Hcc) Immunosuppression (Hcc) Chronic Diastolic Congestive Heart Failure (Hcc) Basal Cell Carcinoma of Multiple Sites of Head and Neck Edema of Both Legs Osteopenia of Multiple Sites Right Heart Failure (Hcc) PAST MEDICAL HISTORY Diagnosis Date Abnormal LFTs (liver function tests) 06/27/2013 F/U [facility] Arthritis Ascites Asthma (HCC) Basal cell carcinoma of multiple sites of head and neck 11/2023 Dr. 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 Kelby Suarez. 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 Osteopenia of multiple sites 08/08/2024 Platelets decreased 10/02/2022 Pleural effusion associated with hepatic disorder PMH - PAST MEDICAL HISTORY OF 1997 shingles without rash Portal vein thrombosis RBBB (right bundle branch block) 03/30/2009 Right inguinal hernia 10/03/2022 Skin cancer nose, face, ears Snoring Splenomegaly Stented coronary artery 07/18/2017 MICHELLE to diagonal and mid LAD. Tubular adenoma of colon 02/08/2017 Umbilical hernia 01/08/2014 Unilateral inguinal hernia 05/30/2023 Unspecified essential hypertension 04/02/2009 Unspecified severe protein-calorie malnutrition (HCC) 09/06/2023 Urethral stricture 09/20/2022 PAST SURGICAL HISTORY Procedure Laterality Date CC CORONARY STENT 07/18/2017 MICHELLE x 2 to mild LAD and diagonal COLONOSCOPY FLX DX W/COLLJ SPEC WHEN PFRMD 02/08/2017 Colonoscopy COLONOSCOPY FLX DX W/COLLJ SPEC WHEN PFRMD 01/07/2020 Colonoscopy CYSTOSCOPY 10/12/2020 EGD 02/01/2021 EGD 01/05/2022 ESOPHAGOGASTRODUODENOSCOPY TRANSORAL DIAGNOSTIC 01/07/2020 EGD INSERT HEPATIC SHUNT (TIPS) 09/20/2022 Transjugular Intrahepatic Portosystemic Shunt LEFT HEART CATH,PERCUTANEOUS 01/08/2023 MOHS HEAD/NECK STAGE 1 <=5 01/10/2024 left cheek PARACENTESIS PAST SURGICAL HISTORY OF 03/31/2023 Orthoptic Liver Transplant [facility] PROSTATE NEEDLE BIOPSY 05/19/2009 PROSTATE NEEDLE BIOPSY 01/02/2013 PROSTATECTOMY SUPRAPUBIC SUBTOTAL 1/2 STAGES 08/08/2021 + Umbilical hernia repair REMV CATARACT EXTRACAP,INSERT LENS 10/18/2020 10/04/20, 10/18/20 FAMILY HISTORY Problem Relation Age of Onset Arthritis Mother Heart Mother Pacemaker Stroke Mother w/ bowel obstruction Cancer Mother skin Heart Father Pacemaker Cancer Father skin Lipids Brother Arrhythmia Brother Atrial fib. Lipids Brother Anesthesia Problems No Family History SOCIAL HISTORY[1] ALLERGIES Allergen Reactions Metaudt-Htq-Gjw Red* Itching MEDICATIONS: Current Outpatient Medications Medication Sig sulfamethoxazole-trimethoprim (BACTRIM DS) 800-160 mg per tablet Take 1 tablet by mouth every Sunday, Sunday, and Sunday. NIFEdipine ER (PROCARDIA XL) 30 mg 24 hr tablet Take 1 tablet by mouth once daily. REPATHA SURECLICK 140 mg/mL pen injector INJECT 140 MG SUBCUTANEOUSLY EVERY [address] (PROTONIX) 40 mg tablet Take 1 tablet by mouth once daily. tacrolimus IR (PROGRAF) 1 mg capsule Take 2 capsules by mouth daily at 6 am AND 1 capsule daily at 6 pm. furosemide (LASIX) 20 mg tablet Take 1 tablet by mouth once daily. aspirin 81 mg chewable tablet Chew and swallow 1 tablet by mouth once daily. peg 3350-Electrolytes (GOLYTELY) 236-22.74-6.74 -5.86 gram suspension Refer to printed prep instructions from your provider. cholecalciferol, vitamin D3, (VITAMIN D3 ORAL) Take by mouth once daily. Amoxicillin 500 mg tablet Take 4 tablets by mouth as directed. Take 2g Amoxicillin 1 hr prior to dental procedure. lactobacillus rhamnosus (CULTURELLE) 10 billion cell capsule Take 1 capsule by mouth once daily. No current facility-administered medications for this visit. COVID-19 Immunization Status This patient has no relevant Health Maintenance data. REVIEW OF SYSTEMS: Pain Assessment: General: No weight loss, malaise or fevers. Neuro: No history of TIA's, stroke, YOUTH SUPPORT WORKER tumor, impaired sensorium, hemiplegia, paraplegia or quadraplegia. No neurological symptoms or problems. Respiratory: Positive for VANESSA, Negative for Asthma, COPD, Current cough, URI < 2 weeks Cardiovascular: Positive for: HTN, HLD, CAD s/p 2 stents 2018, diastolic CHF, Negative for Recent PR, Chest Pain, DVT/PE GI: See HPI, history of DURANT/cirrhosis s/p liver transplant : Negative for dysuria, frequency, and hematuria, Positive for CKD III History of prostatectomy for BPH Endocrine: Denies DM/symptoms Denies oral steroids in the last 30 days Denies thyroid disease/symptoms Hematology: Chronic anti-coagulation / platelet meds (Aspirin) Denies bleeding or clotting disorders/symptoms Oncology: history of skin cancer Psych: No history of psychiatric symptoms or problems. Musculoskeletal: Joint pain Skin: follows with dermatology for skin lesions, having future mohs surgery. Denies open skin/infection Marijuana use: No Implanted Devices: No Objective PHYSICAL EXAM: BP 146/83[home BP cuff prior to visit[ Pulse 60[patient counted[ Ht 5' 7[patient reported[ (1.70m) Wt 218 lb (98.9kg) BMI 34.14 kg/(m^2). VIDEO EXAM: (if completed, exam performed via video enabled technology) GENERAL: alert and appropriate, in no distress, well-hydrated, well nourished, happy, smiling, interactive, and overweight HEAD: normocephalic, no abnormality or lesion noted EYES: no injection NOSE: external nose normal without rhinorrhea NECK: short neck, full ROM RESPIRATORY: breathing non-labored and no grunting/flaring/retractions CHEST: equal chest rise with normal respiratory effort HEART: Patient confirmed radial pulse and counted aloud with regular rhythm. HR 60 BPM. No cyanosis ABDOMEN: soft and non-tender to self-palpation NEUROLOGIC: no facial droop, speech is clear and fluent Diagnostic tests reviewed for today's visit: Lab Value Units Date High Low HB 14.4 g/dL 01/12/2025 17.0 13.0 HCT 42.3 % 01/12/2025 51.0 39.0 WBC 5.93 k/uL 01/12/2025 11.00 3.70 PLT 199 k/uL 01/12/2025 400 150 NA 141 mmol/L 01/12/2025 144 136 K 4.4 mmol/L 01/12/2025 5.1 3.7 GLUC 122 mg/dL 01/12/2025 99 74 BUN 20 mg/dL 01/12/2025 24 9 CREAT 1.50 mg/dL 01/12/2025 1.22 0.73 PTSEC No results within date range. INR No results within date range. APTT No results within date range. ALT 9 U/L 01/12/2025 54 10 AST 12 U/L 01/12/2025 40 14 TBILI 0.4 mg/dL 01/12/2025 1.3 0.2 TSH No results within date range. Hemoglobin A1C (%) Date Value 12/24/2020 5.2 02/10/2020 5.3 04/09/2019 5.6 02/08/2018 5.7 07/13/2017 6.4 Hemoglobin A1C (POCT) (%) Date Value 02/08/2024 5.2 02/07/2023 4.1 ECHO (04/06/2023 11:37 AM) CONCLUSIONS: - Technically difficult exam due to suboptimal positioning and bandages/chest tubes/wound. - Exam indication: s/p Liver txp - The left ventricle is normal in size. Left ventricular systolic function is normal. EF = 61 5% (2D biplane) Left ventricular diastolic function was not evaluated due to an arrhythmia. There is yayr-sk-flmr variability due to frequent PACs. - The right ventricle is normal in size. Right ventricular systolic function is normal. - Estimated right ventricular systolic pressure is likely underestimated due to a weak or incomplete tricuspid regurgitation signal and is, at least, 22 mmHg consistent with normal pulmonary artery pressures. Estimated right atrial pressure is 8 mmHg based on IVC assessment. - There are no significant valvular abnormalities. - Exam was compared with the prior CC echocardiographic exam performed on 06/19/2022. Similar findings. CARD CATH DIAGNOSTIC (01/08/2023 8:45 AM) Impression:1. The mid LAD and first diagonal branch stents are patent. There is a branch off the first diagonal with severe (90%) focal stenosis making this a higher risk procedure. 2. The RCA has mild diffuse diease. Recommended Treatment: Medical Therapy. Plan: 1. Consider if revascularization of diagonal branch lesion needed to reduce risk of procedure. 2. Medical management of coronary artery disease. ECG COMPLETE (04/04/2023 12:07 PM) SINUS BRADYCARDIA WITH MARKED SINUS ARRHYTHMIA RSR' PATTERN IN V1 SUGGESTS INCOMPLETE RIGHT BUNDLE BRANCH BLOCK MINIMAL VOLTAGE CRITERIA FOR LVH, MAY BE NORMAL VARIANT ( R in aVL ) BORDERLINE ECG PLAN: This patient is optimally prepared for colonoscopy. CONSULTS: Patient does not require consults for optimization at this time. Cardiac consultation Office Visit with Demetrius Goldberg MD (01/05/2025) PLAN AND RECOMMENDATIONS: 1. Coronary artery 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 artery of [place] heart without angina pectoris - ICD9: 414.01, ICD10: I25.10 (primary diagnosis) Patient doing well with excellent functional capacity and no symptoms concerning for angina. Continue current medical therapy after modification 2. Chronic diastolic congestive heart failure (HCC) - ICD9: 428.32, 428.0, ICD10: I50.32 Doing well on current dose of furosemide and low-sodium diet. Repeat echocardiogram prior to next office visit - ECHO - PERFLUTREN LIPID MICROSPHERES 1.1 MG/ML INJECTION IN NS 10 ML - SODIUM CHLORIDE 0.9 % (FLUSH) INJECTION SYRINGE 3. Primary hypertension - ICD9: 401.9, ICD10: I10 Well-controlled on current regimen. 4. Mixed hyperlipidemia - ICD9: 272.2, ICD10: E78.2 Patient has been maintained on her path due to statin intolerance. Most recent fasting lipid panel was reviewed. LDL cholesterol 50 mg/dL representing an excellent response to therapy 5. Chronic right-sided heart failure (HCC) - ICD9: 428.0, ICD10: I50.812 - ECHO - PERFLUTREN LIPID MICROSPHERES 1.1 MG/ML INJECTION IN NS 10 ML - SODIUM CHLORIDE 0.9 % (FLUSH) INJECTION SYRINGE Demetrius Goldberg MD The Following Tests/Procedures Have Been Initiated: Labs not indicated per PACC protocol, EKG not indicated per PACC protocol Planned Anesthetic: Per anesthesia choice Instructions Given to Patient: Patient given verbal instructions and voices comprehension and compliance. Copy sent electronically via My Chart, email, or mobile device. This is a virtual visit. It required patient-provider interaction for the medical decision making as documented above. SIGNATURE: Huyen Tamayo PA-C PATIENT NAME: Jesus Sosa DATE: 01/23/2025 TIME: 9:30 AM PAGER/CONTACT #: [1] Social History Tobacco Use Smoking status: Some Days Types: Cigars Smokeless tobacco: Never Tobacco comments: Last cigar 07/17/2017 Vaping Use Vaping status: Never Used Substance Use Topics Alcohol use: Not Currently Alcohol/week: 2.3 standard drinks of alcohol Types: 1 Glasses of Wine (5oz), 1 Mixed Drinks per week Comment: may have a drink once per month Drug use: No [facility] 01-23-2025 History and physical note PREANESTHESIA CONSULT CLINIC TELEHEALTH VISIT Patient has been identified by name and date of : Yes This is a virtual visit using [employer] Video Visit. It require patient-provider interaction for the medical decision making as documented below. Reason for contact: PACC visit Accompanied by: Self Scheduled Surgery: Colonoscopy I have communicated my name and active licensure. The patient's identity and physical location were verified at the time of this visit. Either the patient or their legal solar sales representative has been informed of the risks and benefits of -- and alternatives to -- treatment through a remote evaluation and consents to proceed with the evaluation remotely. Recording using ambient [employer] software for draft documentation of the visit was discussed with the patient/authorized solar sales representative; all questions welcomed and answered. Patient/authorized solar sales representative agreed to proceed ASSESSMENT: 1. VANESSA (obstructive sleep apnea) (G47.33) - Patient uses CPAP; advised to bring device to surgery center for colonoscopy in case needed to maintain oxygenation. 2. Obesity, Class I, BMI 30-34.9 (E66.811) - BMI 34.2 (height 5'7, weight 218 lbs). - Engages in regular exercise (treadmill and recumbent stair stepper 3x/week). 3. Coronary artery 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 artery of [place] heart without angina pectoris (I25.10) - History of LAD and diagonal stents placed in 2018. - No angina or chest pain reported. - Continue aspirin daily. - Reviewed Cardiology notes from Dr. Goldberg from 2 weeks ago. No acute concerns noted. Last EF normal in 2022 4. Chronic diastolic congestive heart failure (HCC) (I50.32) 5. Right-sided heart failure, unspecified HF chronicity (HCC) (I50.810) - Stable on Lasix and low sodium diet. - No CP, Shortness of Breath, orthopnea, PND, or acute fluid retention. - Reviewed Cardiology notes from Dr. Goldberg from 2 weeks ago. - Hold Lasix on morning of colonoscopy. - Echocardiogram 03/2023 showed right ventricle normal in size, normal systolic function, RVSP 22 mmHg, normal LV EF of 61% 6. Primary hypertension (I10) - Home BP readings typically 120-130s/70s-80s; recent elevated reading of 146/83 this morning. - Continue nifedipine XL 30 mg nightly. - Advised to monitor BP and report consistently elevated readings. - BP ok to proceed. 7. Mixed hyperlipidemia (E78.2) - Continue Repatha 140 mg SQ every 2 weeks; next dose due 02/05. 8. History of cirrhosis (Z87.19) 9. Liver transplant recipient (HCC) (Z94.4) 10. Immunosuppression (HCC) (D84.9) - history of cirrhosis secondary to fatty liver disease. - Orthotopic liver transplant in March 2023. - Continue tacrolimus 2 mg in AM, 1 mg in PM; may take AM dose on day of colonoscopy, but advised to follow transplant team's instructions if they differ. - Continue pantoprazole 40 mg daily. Patient denies GERD symptoms - Advised to periodically check with transplant team regarding continuation of pantoprazole. 11. Stage 3a chronic kidney disease (HCC) (N18.31) - Most recent GFR 48, stable. (Previous 52, 49) - Advised to maintain hydration and avoid NSAIDs. METS: Walk indoors, such as around the house (1.75 METs) Do light work around the house, such as dusting or washing dishes (2.70 METs) Take care of self; that is eating, dressing, bathing, using the toilet (2.75 METs) Walk a block or two on level ground (2.75 METs) Do moderate work around the house such as vacuuming, sweeping floors, or carrying in groceries (3.50 METs) Do yardwork, such as raking leaves, weeding,or pushing a power mower (4.50 METs) Climb a flight of stairs or walk up a hill (5.50 METs) Do heavy work around the house, such as scrubbing floors, lifting or moving heavy furniture (8.00 METs) Patient denies any chest pain or undue shortness of breath with the above physical activity. 1/2 hour on treadmill at the gym - 1.5 miles in 30 minutes, 20 minutes on recumbent stair stepper 3 times per week Chronic mild edema - unchanged, stable Denies orthopnea, syncope, fluid retention ANESTHESIA FINDINGS: Intubation History: Airway (03/31/2023 6:20 PM) Final Airway Details Final airway type: endotracheal airway Final Endotracheal Airway: ETT Cuffed: yes Successful intubation technique: video laryngoscopy Devices used: Abril Endotracheal tube insertion site: oral Blade: Caitlin Blade size: #4 ETT size (mm): 7.5 Measured from: lips Measurement (cm): 22 Placement verified by: capnometry Cormack-Lehane Classification: grade I - full view of glottis Number of attempts at approach: 1 Significant Anesthesia Considerations: None Airway Exam: General: Normal appearance Mallampati Score is CLASS III ULBT: Class I - Lower incisors can bite the upper lip above the dean line Neck: full ROM, short neck Mouth: Large tongue size and Mouth opening greater than 2 finger breaths, +mustache Dentition: Intact Airway History: No abnormal airway history STOP BANG Score: VANESSA uses CPAP/BiPAP Subjective CHIEF COMPLAINT: Patient presents with: Pre-Op Visit HPI: This is a 75 year old male who presents for PACC prior to routine colonoscopy, his third, with the first in 2016 showing polyps, but the second in 2019 showing no polyps. He denies any family history of colon cancer and reports no symptoms of diarrhea, constipation, rectal bleeding, or abdominal pain. He elects to proceed with above procedure. ACTIVE PROBLEM LIST Mixed Hyperlipidemia Primary Hypertension Stented Coronary Artery Coronary Artery Disease Involving [place] Coronary Artery of [place] Heart Without Angina Pectoris Obesity, Class I, Bmi 30-34.9 Ckd (Chronic Kidney Disease) Stage 3, Gfr 30-59 Ml/Min (Hcc) Vanessa (Obstructive Sleep Apnea) Nonalcoholic Fatty Liver Disease Without Nonalcoholic Steatohepatitis ([place]) Vitamin D Deficiency Liver Cirrhosis Secondary to [place] (Hcc) H/O Prostatectomy Liver Transplant Recipient (Hcc) Immunosuppression (Hcc) Chronic Diastolic Congestive Heart Failure (Hcc) Basal Cell Carcinoma of Multiple Sites of Head and Neck Edema of Both Legs Osteopenia of Multiple Sites Right Heart Failure (Hcc) PAST MEDICAL HISTORY Diagnosis Date Abnormal LFTs (liver function tests) 06/27/2013 F/U [facility] Arthritis Ascites Asthma (HCC) Basal cell carcinoma of multiple sites of head and neck 11/2023 Dr. Perez Martinez, dermatology Bladder neck obstruction 05/26/2009 BPH with obstruction/lower urinary tract symptoms BPH with obstruction/lower urinary tract symptoms 08/24/2008 Chronic diastolic congestive heart failure (HCC) 04/16/2023 Chronic prostatitis 05/26/2009 CKD (chronic kidney disease) Coronary artery disease Elevated prostate specific antigen (PSA) 07/19/2007 Esophageal reflux 1998 admitted for chest pain Esophageal varices (HCC) Essential hypertension 04/02/2009 Former cigar smoker Hepatic fibrosis (HCC) on elastography 02/09/2018 Dr. Kelby Suarez. 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 Osteopenia of multiple sites 08/08/2024 Platelets decreased 10/02/2022 Pleural effusion associated with hepatic disorder PMH - PAST MEDICAL HISTORY OF 1998 shingles without rash Portal vein thrombosis RBBB (right bundle branch block) 03/30/2009 Right inguinal hernia 10/03/2022 Skin cancer nose, face, ears Snoring Splenomegaly Stented coronary artery 07/18/2017 MICHELLE to diagonal and mid LAD. Tubular adenoma of colon 02/08/2017 Umbilical hernia 01/08/2014 Unilateral inguinal hernia 05/30/2023 Unspecified essential hypertension 04/02/2009 Unspecified severe protein-calorie malnutrition (HCC) 09/06/2023 Urethral stricture 09/20/2022 PAST SURGICAL HISTORY Procedure Laterality Date CC CORONARY STENT 07/18/2017 MICHELLE x 2 to mild LAD and diagonal COLONOSCOPY FLX DX W/COLLJ SPEC WHEN PFRMD 02/08/2017 Colonoscopy COLONOSCOPY FLX DX W/COLLJ SPEC WHEN PFRMD 01/07/2020 Colonoscopy CYSTOSCOPY 10/12/2020 EGD 02/01/2021 EGD 01/05/2022 ESOPHAGOGASTRODUODENOSCOPY TRANSORAL DIAGNOSTIC 01/07/2020 EGD INSERT HEPATIC SHUNT (TIPS) 09/20/2022 Transjugular Intrahepatic Portosystemic Shunt LEFT HEART CATH,PERCUTANEOUS 01/08/2023 MOHS HEAD/NECK STAGE 1 <=5 01/10/2024 left cheek PARACENTESIS PAST SURGICAL HISTORY OF 03/31/2023 Orthoptic Liver Transplant [facility] PROSTATE NEEDLE BIOPSY 05/19/2009 PROSTATE NEEDLE BIOPSY 01/02/2013 PROSTATECTOMY SUPRAPUBIC SUBTOTAL 1/2 STAGES 08/08/2021 + Umbilical hernia repair REMV CATARACT EXTRACAP,INSERT LENS 10/18/2020 10/04/20, 10/18/20 FAMILY HISTORY Problem Relation Age of Onset Arthritis Mother Heart Mother Pacemaker Stroke Mother w/ bowel obstruction Cancer Mother skin Heart Father Pacemaker Cancer Father skin Lipids Brother Arrhythmia Brother Atrial fib. Lipids Brother Anesthesia Problems No Family History SOCIAL HISTORY[1] ALLERGIES Allergen Reactions Maxknxa-Yji-Wxs Red* Itching MEDICATIONS: Current Outpatient Medications Medication Sig sulfamethoxazole-trimethoprim (BACTRIM DS) 800-160 mg per tablet Take 1 tablet by mouth every Sunday, Sunday, and Sunday. NIFEdipine ER (PROCARDIA XL) 30 mg 24 hr tablet Take 1 tablet by mouth once daily. REPATHA SURECLICK 140 mg/mL pen injector INJECT 140 MG SUBCUTANEOUSLY EVERY [address] (PROTONIX) 40 mg tablet Take 1 tablet by mouth once daily. tacrolimus IR (PROGRAF) 1 mg capsule Take 2 capsules by mouth daily at 6 am AND 1 capsule daily at 6 pm. furosemide (LASIX) 20 mg tablet Take 1 tablet by mouth once daily. aspirin 81 mg chewable tablet Chew and swallow 1 tablet by mouth once daily. peg 3350-Electrolytes (GOLYTELY) 236-22.74-6.74 -5.86 gram suspension Refer to printed prep instructions from your provider. cholecalciferol, vitamin D3, (VITAMIN D3 ORAL) Take by mouth once daily. Amoxicillin 500 mg tablet Take 4 tablets by mouth as directed. Take 2g Amoxicillin 1 hr prior to dental procedure. lactobacillus rhamnosus (CULTURELLE) 10 billion cell capsule Take 1 capsule by mouth once daily. No current facility-administered medications for this visit. COVID-19 Immunization Status This patient has no relevant Health Maintenance data. REVIEW OF SYSTEMS: Pain Assessment: General: No weight loss, malaise or fevers. Neuro: No history of TIA's, stroke, [employer] SU[employer] WORKER tumor, impaired sensorium, hemiplegia, paraplegia or quadraplegia. No neurological symptoms or problems. Respiratory: Positive for VANESSA, Negative for Asthma, COPD, Current cough, URI < 2 weeks Cardiovascular: Positive for: HTN, HLD, CAD s/p 2 stents 2018, diastolic CHF, Negative for Recent PR, Chest Pain, DVT/PE GI: See HPI, history of DURANT/cirrhosis s/p liver transplant : Negative for dysuria, frequency, and hematuria, Positive for CKD III History of prostatectomy for BPH Endocrine: Denies DM/symptoms Denies oral steroids in the last 30 days Denies thyroid disease/symptoms Hematology: Chronic anti-coagulation / platelet meds (Aspirin) Denies bleeding or clotting disorders/symptoms Oncology: history of skin cancer Psych: No history of psychiatric symptoms or problems. Musculoskeletal: Joint pain Skin: follows with dermatology for skin lesions, having future mohs surgery. Denies open skin/infection Marijuana use: No Implanted Devices: No Objective PHYSICAL EXAM: BP 146/83[home BP cuff prior to visit[ Pulse 60[patient counted[ Ht 5' 7[patient reported[ (1.70m) Wt 218 lb (98.9kg) BMI 34.14 kg/(m^2). VIDEO EXAM: (if completed, exam performed via video enabled technology) GENERAL: alert and appropriate, in no distress, well-hydrated, well nourished, happy, smiling, interactive, and overweight HEAD: normocephalic, no abnormality or lesion noted EYES: no injection NOSE: external nose normal without rhinorrhea NECK: short neck, full ROM RESPIRATORY: breathing non-labored and no grunting/flaring/retractions CHEST: equal chest rise with normal respiratory effort HEART: Patient confirmed radial pulse and counted aloud with regular rhythm. HR 60 BPM. No cyanosis ABDOMEN: soft and non-tender to self-palpation NEUROLOGIC: no facial droop, speech is clear and fluent Diagnostic tests reviewed for today's visit: Lab Value Units Date High Low HB 14.4 g/dL 01/12/2025 17.0 13.0 HCT 42.3 % 01/12/2025 51.0 39.0 WBC 5.93 k/uL 01/12/2025 11.00 3.70 PLT 199 k/uL 01/12/2025 400 150 NA 141 mmol/L 01/12/2025 144 136 K 4.4 mmol/L 01/12/2025 5.1 3.7 GLUC 122 mg/dL 01/12/2025 99 74 BUN 20 mg/dL 01/12/2025 24 9 CREAT 1.50 mg/dL 01/12/2025 1.22 0.73 PTSEC No results within date range. INR No results within date range. APTT No results within date range. ALT 9 U/L 01/12/2025 54 10 AST 12 U/L 01/12/2025 40 14 TBILI 0.4 mg/dL 01/12/2025 1.3 0.2 TSH No results within date range. Hemoglobin A1C (%) Date Value 12/24/2020 5.2 02/10/2020 5.3 04/09/2019 5.6 02/08/2018 5.7 07/13/2017 6.4 Hemoglobin A1C (POCT) (%) Date Value 02/08/2024 5.2 02/07/2023 4.1 ECHO (04/06/2023 11:37 AM) CONCLUSIONS: - Technically difficult exam due to suboptimal positioning and bandages/chest tubes/wound. - Exam indication: s/p Liver txp - The left ventricle is normal in size. Left ventricular systolic function is normal. EF = 61 5% (2D biplane) Left ventricular diastolic function was not evaluated due to an arrhythmia. There is wssk-zp-zlei variability due to frequent PACs. - The right ventricle is normal in size. Right ventricular systolic function is normal. - Estimated right ventricular systolic pressure is likely underestimated due to a weak or incomplete tricuspid regurgitation signal and is, at least, 22 mmHg consistent with normal pulmonary artery pressures. Estimated right atrial pressure is 8 mmHg based on IVC assessment. - There are no significant valvular abnormalities. - Exam was compared with the prior CC echocardiographic exam performed on 06/19/2022. Similar findings. CARD CATH DIAGNOSTIC (01/08/2023 8:45 AM) Impression:1. The mid LAD and first diagonal branch stents are patent. There is a branch off the first diagonal with severe (90%) focal stenosis making this a higher risk procedure. 2. The RCA has mild diffuse diease. Recommended Treatment: Medical Therapy. Plan: 1. Consider if revascularization of diagonal branch lesion needed to reduce risk of procedure. 2. Medical management of coronary artery disease. ECG COMPLETE (04/04/2023 12:07 PM) SINUS BRADYCARDIA WITH MARKED SINUS ARRHYTHMIA RSR' PATTERN IN V1 SUGGESTS INCOMPLETE RIGHT BUNDLE BRANCH BLOCK MINIMAL VOLTAGE CRITERIA FOR LVH, MAY BE NORMAL VARIANT ( R in aVL ) BORDERLINE ECG PLAN: This patient is optimally prepared for colonoscopy. CONSULTS: Patient does not require consults for optimization at this time. Cardiac consultation Office Visit with Demetrius Goldberg MD (01/05/2025) PLAN AND RECOMMENDATIONS: 1. Coronary artery 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 artery of [place] heart without angina pectoris - ICD9: 414.01, ICD10: I25.10 (primary diagnosis) Patient doing well with excellent functional capacity and no symptoms concerning for angina. Continue current medical therapy after modification 2. Chronic diastolic congestive heart failure (HCC) - ICD9: 428.32, 428.0, ICD10: I50.32 Doing well on current dose of furosemide and low-sodium diet. Repeat echocardiogram prior to next office visit - ECHO - PERFLUTREN LIPID MICROSPHERES 1.1 MG/ML INJECTION IN NS 10 ML - SODIUM CHLORIDE 0.9 % (FLUSH) INJECTION SYRINGE 3. Primary hypertension - ICD9: 401.9, ICD10: I10 Well-controlled on current regimen. 4. Mixed hyperlipidemia - ICD9: 272.2, ICD10: E78.2 Patient has been maintained on her path due to statin intolerance. Most recent fasting lipid panel was reviewed. LDL cholesterol 50 mg/dL representing an excellent response to therapy 5. Chronic right-sided heart failure (HCC) - ICD9: 428.0, ICD10: I50.812 - ECHO - PERFLUTREN LIPID MICROSPHERES 1.1 MG/ML INJECTION IN NS 10 ML - SODIUM CHLORIDE 0.9 % (FLUSH) INJECTION SYRINGE Demetrius Goldberg MD The Following Tests/Procedures Have Been Initiated: Labs not indicated per PACC protocol, EKG not indicated per PACC protocol Planned Anesthetic: Per anesthesia choice Instructions Given to Patient: Patient given verbal instructions and voices comprehension and compliance. Copy sent electronically via My Chart, email, or mobile device. This is a virtual visit. It required patient-provider interaction for the medical decision making as documented above. SIGNATURE: Huyen Tamayo PA-C PATIENT NAME: Jesus Sosa DATE: 01/23/2025 TIME: 9:30 AM PAGER/CONTACT #: [1] Social History Tobacco Use Smoking status: Some Days Types: Cigars Smokeless tobacco: Never Tobacco comments: Last cigar 07/17/2017 Vaping Use Vaping status: Never Used Substance Use Topics Alcohol use: Not Currently Alcohol/week: 2.3 standard drinks of alcohol Types: 1 Glasses of Wine (5oz), 1 Mixed Drinks per week Comment: may have a drink once per month Drug use: No documented in this encounter [facility] 01-06-2025 History of Presen t illness Narrative HISTORY AND PHYSICAL Jesus Sosa : 1950 REFERRING PHYSICIAN: No referring provider defined for this encounter. CHIEF COMPLAINT: Patient presents with: Consult: Denies GI issues. Due for colonoscopy HPI: Jesus is a 74 year old male referred for endoscopy. Jesus notes due for screening colonoscopy-hx of polyps (2016). Jesus denies abdominal pain.. Jesus denies diarrhea. Jesus denies constipation. Jesus denies a change in bowel habits. Jesus denies melena. Jesus denies bright red blood per rectum. Jesus denies hemorrhoids. Jesus denies family history of colon issues. Jesus denies heartburn. Jesus denies dysphagia. Jesus denies a history of ulcers/ peptic ulcer disease. Mango's medical history is significant for HTN, HLD, VANESSA c/w CPAP, hx of liver transplant (2022), and obesity. Mango follows with [facility] cardiology. Last OV 06/2024. Last ECHO 03/2023 EF: 61%. He denies CP, SOB, dizziness, palpitations, syncope, edema, recent hospitalizations Jesus has undergone prior endoscopy. Last colonoscopy was 12/[address] Machuca at [facility]. Sedation: Midazolam 2 mg IV Impression: - Non-bleeding external and internal hemorrhoids. - No specimens collected. Last EGD was 12/2021 at . Sedation:Fentanyl 50 micrograms IV, Midazolam 4 mg IV Impression: - Grade I esophageal varices. - Severe Portal hypertensive gastropathy. - Small hiatal hernia. - No gross lesions in the entire examined duodenum. - No specimens collected. Current Outpatient Medications Medication Sig sulfamethoxazole-trimethoprim (BACTRIM DS) 800-160 mg per tablet Take 1 tablet by mouth every Sunday, Sunday, and Sunday. NIFEdipine ER (PROCARDIA XL) 30 mg 24 hr tablet Take 1 tablet by mouth once daily. REPATHA SURECLICK 140 mg/mL pen injector INJECT 140 MG SUBCUTANEOUSLY EVERY [address] (PROTONIX) 40 mg tablet Take 1 tablet by mouth once daily. tacrolimus IR (PROGRAF) 1 mg capsule Take 2 capsules by mouth daily at 6 am AND 1 capsule daily at 6 pm. furosemide (LASIX) 20 mg tablet Take 1 tablet by mouth once daily. cholecalciferol, vitamin D3, (VITAMIN D3 ORAL) Take by mouth once daily. Amoxicillin 500 mg tablet Take 4 tablets by mouth as directed. Take 2g Amoxicillin 1 hr prior to dental procedure. lactobacillus rhamnosus (CULTURELLE) 10 billion cell capsule Take 1 capsule by mouth once daily. aspirin 81 mg chewable tablet Chew and swallow 1 tablet by mouth once daily. peg 3350-Electrolytes (GOLYTELY) 236-22.74-6.74 -5.86 gram suspension Refer to printed prep instructions from your provider. No current facility-administered medications for this visit. ALLERGIES: Ccajygy-Syc-Njz Reductase Inhibitors PAST MEDICAL HISTORY Diagnosis Date Abnormal LFTs (liver function tests) 06/27/2013 F/U [facility] Arthritis Ascites Asthma (HCC) Basal cell carcinoma of multiple sites of head and neck 11/2023 Dr. 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 Kelby Suarez. 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 Osteopenia of multiple sites 08/08/2024 Platelets decreased 10/02/2022 Pleural effusion associated with hepatic disorder PMH - PAST MEDICAL HISTORY OF 1998 shingles without rash Portal vein thrombosis RBBB (right bundle branch block) 03/30/2009 Right inguinal hernia 10/03/2022 Skin cancer nose, face, ears Snoring Splenomegaly Stented coronary artery 07/18/2017 MICHELLE to diagonal and mid LAD. Tubular adenoma of colon 02/08/2017 Umbilical hernia 01/08/2014 Unilateral inguinal hernia 05/30/2023 Unspecified essential hypertension 04/02/2009 Unspecified severe protein-calorie malnutrition (HCC) 09/06/2023 Urethral stricture 09/20/2022 PAST SURGICAL HISTORY Procedure Laterality Date CC CORONARY STENT 07/18/2017 MICHELLE x 2 to mild LAD and diagonal COLONOSCOPY FLX DX W/COLLJ SPEC WHEN PFRMD 02/08/2017 Colonoscopy COLONOSCOPY FLX DX W/COLLJ SPEC WHEN PFRMD 01/07/2020 Colonoscopy CYSTOSCOPY 10/12/2020 EGD 02/01/2021 EGD 01/05/2022 ESOPHAGOGASTRODUODENOSCOPY TRANSORAL DIAGNOSTIC 01/07/2020 EGD INSERT HEPATIC SHUNT (TIPS) 09/20/2022 Transjugular Intrahepatic Portosystemic Shunt LEFT HEART CATH,PERCUTANEOUS 01/08/2023 MOHS HEAD/NECK STAGE 1 <=5 01/10/2024 left cheek PARACENTESIS PAST SURGICAL HISTORY OF 03/31/2023 Orthoptic Liver Transplant [facility] PROSTATE NEEDLE BIOPSY 05/19/2009 PROSTATE NEEDLE BIOPSY 01/02/2013 PROSTATECTOMY SUPRAPUBIC SUBTOTAL 1/2 STAGES 08/08/2021 + Umbilical hernia repair REMV CATARACT EXTRACAP,INSERT LENS 10/18/2020 10/04/20, 10/18/20 FAMILY HISTORY Problem Relation Age of Onset Arthritis Mother Heart Mother Pacemaker Stroke Mother w/ bowel obstruction Cancer Mother skin Heart Father Pacemaker Cancer Father skin Lipids Brother Arrhythmia Brother Atrial fib. Lipids Brother Anesthesia Problems No Family History Social History Tobacco Use Smoking status: Some Days Types: Cigars Smokeless tobacco: Never Tobacco comments: Last cigar 07/17/2017 Vaping Use Vaping status: Never Used Substance Use Topics Alcohol use: Not Currently Alcohol/week: 2.3 standard drinks of alcohol Types: 1 Glasses of Wine (5oz), 1 Mixed Drinks per week Comment: may have a drink once per month Drug use: No REVIEW OF SYMPTOMS: REVIEW OF SYSTEMS: General: The patient denies fatigue, denies weight loss, denies weight gain, denies feeling hot, and feelings of cold. Eyes: The patient denies glaucoma, + eye injury/surgery, + glasses or contacts. Ear/Nose/Throat: The patient denies allergies, denies hayfever, denies ear infections, and denies bloody noses. Cardiovascular: The patient denies chest pain, + heart disease, denies high blood pressure, denies high cholesterol, and denies poor circulation. Respiratory: The patient denies tuberculosis, denies pneumonia, denies frequent cough, denies shortness of breath, and denies coughing up blood. Gastrointestinal: The patient denies difficulty swallowing, denies acid reflux, denies ulcers, denies jaundice/hepatitis, denies gallbladder problems, denies vomiting, denies black or tarry stools, denies hemorrhoids, denies bleeding from rectum, denies diverticulitis, denies constipation, denies diarrhea, denies loss of stool control, and denies hernias. Kidney/Bladder: The patient denies kidney stones, denies urine infections, and denies bloody urine. Skin: The patient + a history of skin cancer, denies bleeding/changing moles, and denies a history of skin rash. Neurologic: The patient denies a history of epilepsy/convulsions, denies headaches, denies head/spinal injuries, and denies stroke/TIA. Psychiatric: The patient denies psychiatric medications, denies depression, and denies voices. Endocrine: The patient denies thyroid disorders, denies diabetes, and denies hormonal problems. Hematologic: The patient denies a history of bruising, denies bleeding, and denies anemia. Infections: The patient denies a history of measles and mumps, denies rheumatic fever, and denies sexually transmitted diseases. Musculoskeletal: The patient denies back pain/injury, denies back problems, denies sciatica, denies knee/foot trouble, denies arthritis, or denies gout. PHYSICAL EXAMINATION: General: The patient is 74 year old, male well nourished, well hydrated in no acute distress. The patient is oriented to time, place, and person. VITALS: Blood pressure 133/79, pulse 68, resp. rate 12, weight 101.2 kg (223 lb), SpO2 97%. Body mass index is 34.93 kg/m . HEENT: Normal cephalic, ataumatic, pupils are equally round, sclera are anicteric, mucous membranes are moist, oropharynx is clear. Neck has no masses or asymmetry . Respiratory: Clear to auscultation. Cardiac: Regular rate and rhythm. Abdominal exam: Soft, nontender, with no palpable masses. No hepatosplenomegaly. No palpable hernias. Extremities: no clubbing or cyanosis LABORATORY VALUES: As Noted RADIOLOGIC STUDIES: As Noted Assessment IMPRESSION: screen for colon cancer, history of colon polyps PLAN: I have reviewed my findings with the surgeon. Will plan for lower endoscopy. We discussed the risks and benefits of the planned endoscopy in terms understandable to the patient. I have informed the patient that complications can occur including failure to complete the endoscopy and perforation. Jesus had the opportunity to ask questions concerning the planned endoscopy. Jesus freely consents to surgery. I plan to use Golytely bowel preparation -Mango was given instructions from his transplant team regarding tacrolimus I have explained to the patient the difference between IV conscious sedation and MAC anesthesia - and I have offered either, according to the patient's wishes. I have explained that with IV conscious sedation there is no anesthesia provider available and therefore there is a limitation of the amount of IV medications that can be given and that the patient may wake up in the middle of the procedure and/or experience pain/discomfort during the procedure. Further discussion was done and the patient was given the opportunity to ask questions and all questions were answered. MAC anesthesia. Jesus was counseled that if there are changes in his/her medical condition, to let the office know if surgery should proceed. If there are changes in patient's medical condition from time of this encounter to the day of the procedure that preclude anesthesia, patient may have procedure cancelled for patient's safety. Diagnoses: (Z12.11) Screen for colon cancer (primary encounter diagnosis) (Z86.0100) History of colonic polyps Portions of this documentation were copied and pasted from previous office visit notes in order to provide a cohesive continuity of the history. The note has been reviewed and edited and updated as necessary. Danita Driver APRN.[email or web address] documented in this encounter [facility] 01-05-2025 History of Presen t illness Narrative Images from the original note were not included. [facility] [place] [facility] [address] [facility] [id number] OUTPATIENT VISIT DATE 01/05/2025 PRIMARY CARE PHYSICIAN: Willem Madsen [address] [place] [address] CHIEF COMPLAINT: Routine follow-up HISTORY OF PRESENT ILLNESS: Mr. Sosa is a 74 year old gentleman with a history of coronary artery disease and prior stenting of the LAD and diagonal branch in 2017, chronic diastolic heart failure with likely right heart failure due to nonalcoholic steatohepatitis (MASH), liver transplant March 2023, hypertension, dyslipidemia who presents for routine follow-up. The patient reports feeling great overall, with no new symptoms or concerns. He underwent his last echocardiogram in 2022. He is scheduled for a colonoscopy and has an appointment with his psych therapist's PA tomorrow. He has been advised to take tacrolimus after his last bowel movement at night and to wait until after the procedure for the next dose. He maintains an exercise routine at [facility] on Mondays, Wednesdays, and Fridays, which includes 30 minutes on the treadmill and 20 minutes on the recumbent stair stepper. He denies any decline in his physical condition. PAST CARDIAC HISTORY: EF 61%, normal biventricular size/function, RVSP normal, no valvular disease, no PFO. RBBB, SR with SA, 1st degree AVB Large right pleural effusion, pending thoracentesis CAD with PCI x2 history (mLAD and Diag in 2017), scattered cor calcifications on non-con CT chest. Cath completed; patent stents, D1 large caliber vessel with a 90% focal stenosis off the first branch of the D1. LCX without concern. RCA with mild 30% focal stenosis. HLD, statin averse reaction (itching), on Praluent, LDL 83mg/dL VANESSA DURANT cirrhosis, ascites, s/p TIPS, thrombocytopenia, portal HTN, grade I EV in 2019. Dyspnea with hypoxemia on supplemental oxygen in setting of pleural effusion, improved symptoms post prior thoracentesis. CKD 3 Hx. PAST MEDICAL HISTORY Diagnosis Date Abnormal LFTs (liver function tests) 06/27/2013 F/U [facility] Arthritis Ascites Asthma (HCC) Basal cell carcinoma of multiple sites of head and neck 11/2023 Dr. 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 Kelby Suarez. 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 Osteopenia of multiple sites 08/08/2024 Platelets decreased 10/02/2022 Pleural effusion associated with hepatic disorder PMH - PAST MEDICAL HISTORY OF 1998 shingles without rash Portal vein thrombosis RBBB (right bundle branch block) 03/30/2009 Right inguinal hernia 10/03/2022 Skin cancer nose, face, ears Snoring Splenomegaly Stented coronary artery 07/18/2017 MICHELLE to diagonal and mid LAD. Tubular adenoma of colon 02/08/2017 Umbilical hernia 01/08/2014 Unilateral inguinal hernia 05/30/2023 Unspecified essential hypertension 04/02/2009 Unspecified severe protein-calorie malnutrition (HCC) 09/06/2023 Urethral stricture 09/20/2022 PAST SURGICAL HISTORY Procedure Laterality Date CC CORONARY STENT 07/18/2017 MICHELLE x 2 to mild LAD and diagonal COLONOSCOPY FLX DX W/COLLJ SPEC WHEN PFRMD 02/08/2017 Colonoscopy COLONOSCOPY FLX DX W/COLLJ SPEC WHEN PFRMD 01/07/2020 Colonoscopy CYSTOSCOPY 10/12/2020 EGD 02/01/2021 EGD 01/05/2022 ESOPHAGOGASTRODUODENOSCOPY TRANSORAL DIAGNOSTIC 01/07/2020 EGD INSERT HEPATIC SHUNT (TIPS) 09/20/2022 Transjugular Intrahepatic Portosystemic Shunt LEFT HEART CATH,PERCUTANEOUS 01/08/2023 MOHS HEAD/NECK STAGE 1 <=5 01/10/2024 left cheek PARACENTESIS PAST SURGICAL HISTORY OF 03/31/2023 Orthoptic Liver Transplant [facility] PROSTATE NEEDLE BIOPSY 05/19/2009 PROSTATE NEEDLE BIOPSY 01/02/2013 PROSTATECTOMY SUPRAPUBIC SUBTOTAL 1/2 STAGES 08/08/2021 + Umbilical hernia repair REMV CATARACT EXTRACAP,INSERT LENS 10/18/2020 10/04/20, 10/18/20 SOCIAL HISTORY Social History Tobacco Use Smoking status: Some Days Types: Cigars Smokeless tobacco: Never Tobacco comments: Last cigar 07/17/2017 Vaping Use Vaping status: Never Used Substance Use Topics Alcohol use: Not Currently Alcohol/week: 2.3 standard drinks of alcohol Types: 1 Glasses of Wine (5oz), 1 Mixed Drinks per week Comment: may have a drink once per month Drug use: No FAMILY HISTORY Problem Relation Age of Onset Arthritis Mother Heart Mother Pacemaker Stroke Mother w/ bowel obstruction Cancer Mother skin Heart Father Pacemaker Cancer Father skin Lipids Brother Arrhythmia Brother Atrial fib. Lipids Brother Anesthesia Problems No Family History ALLERGIES: ALLERGIES Allergen Reactions Xdzhems-Eim-Kcl Red* Itching MEDICATIONS: sulfamethoxazole-trimethoprim (BACTRIM DS) 800-160 mg per tablet Take 1 tablet by mouth every Sunday, Sunday, and Sunday. NIFEdipine ER (PROCARDIA XL) 30 mg 24 hr tablet Take 1 tablet by mouth once daily. REPATHA SURECLICK 140 mg/mL pen injector INJECT 140 MG SUBCUTANEOUSLY EVERY [address] (PROTONIX) 40 mg tablet Take 1 tablet by mouth once daily. tacrolimus IR (PROGRAF) 1 mg capsule Take 2 capsules by mouth daily at 6 am AND 1 capsule daily at 6 pm. furosemide (LASIX) 20 mg tablet Take 1 tablet by mouth once daily. cholecalciferol, vitamin D3, (VITAMIN D3 ORAL) Take by mouth once daily. Amoxicillin 500 mg tablet Take 4 tablets by mouth as directed. Take 2g Amoxicillin 1 hr prior to dental procedure. lactobacillus rhamnosus (CULTURELLE) 10 billion cell capsule Take 1 capsule by mouth once daily. aspirin 81 mg chewable tablet Chew and swallow 1 tablet by mouth once daily. REVIEW OF SYSTEMS: Review of Systems Constitutional: Negative for chills, fever, malaise/fatigue and weight loss. HENT: Negative for hearing loss and sore throat. Eyes: Negative for blurred vision and double vision. Respiratory: Negative. Cardiovascular: Negative. Gastrointestinal: Negative. Genitourinary: Negative for dysuria, frequency, hematuria and urgency. Musculoskeletal: Negative. Skin: Negative. Neurological: Negative for dizziness, seizures, loss of consciousness, weakness and headaches. Endo/Heme/Allergies: Negative for environmental allergies. Does not bruise/bleed easily. Psychiatric/Behavioral: Negative for depression. PHYSICAL EXAMINATION: BP 128/70 Pulse 63 Resp 14 Ht 5' 7 (1.70m) Wt 221 lb (100.2kg) SpO2 97% BMI 34.61 kg/(m^2). General: Pleasant gentleman sitting comfortable no apparent distress he is alert and oriented x3 HEENT: Carotid upstrokes are brisk without bruits no JVD appreciated. Pulmonary: Lungs are clear no rales, wheezes, rhonchi Cardiovascular: Normal S1, S2 with regular rate and rhythm. No murmurs, rubs, or gallops Extremities: Warm, well-perfused, 1+ pitting edema of the lower extremities bilaterally. CARDIOVASCULAR MEDICINE TESTING: Cardiac Catheterization 01/08/2023 Impression: 1. The mid LAD and first diagonal branch stents are patent. There is a branch off the first diagonal with severe (90%) focal stenosis making this a higher risk procedure. 2. The RCA has mild diffuse diease. LMT: _ The LMT is normal. Additional Comment: The LMT is a large caliber vessel. LAD: _ The 1st diagonal LAD is narrowed 90 % - focal disease. Additional Comment: The LAD is a large caliber vessel that wraps around the apex. The mid LAD and diagonal branch stents are patent. The first diagonal is a large caliber vessel. There is a branch proximally off the first diagonal with severe (90%) focal stenosis. There is a small second diagonal branch. LCX: _ The Circumflex is normal. Additional Comment: The LCx is a large caliber vessel. There is a moderate caliber OM1 and a large caliber OM2. No significant stenosis. RCA: _ The mid RCA is narrowed 30 % - focal disease. Additional Comment: The RCA is a large caliber vessel. There is diffuse mild disease. The mid RCA has mild (30%) focal stenosis. Echocardiogram 04/06/2023: - The left ventricle is normal in size. Left ventricular systolic function is normal. EF = 61 5% (2D biplane) Left ventricular diastolic function was not evaluated due to an arrhythmia. There is [id number]-[id number] variability due to frequent PACs. - The right ventricle is normal in size. Right ventricular systolic function is normal. - Estimated right ventricular systolic pressure is likely underestimated due to a weak or incomplete tricuspid regurgitation signal and is, at least, 22 mmHg consistent with normal pulmonary artery pressures. Estimated right atrial pressure is 8 mmHg based on IVC assessment. - There are no significant valvular abnormalities. - Exam was compared with the prior echocardiographic exam performed on 06/19/2022. Similar findings. IMPRESSION: Mr. Sosa is a 74 year old gentleman with a history of coronary artery disease and prior coronary intervention 2017 with stenting of the LAD and diagonal branch. 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 He is also treated for hypertension and dyslipidemia. He presents the office to for routine follow-up PLAN AND RECOMMENDATIONS: 1. Coronary artery 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 artery of [place] heart without angina pectoris - ICD9: 414.01, ICD10: I25.10 (primary diagnosis) Patient doing well with excellent functional capacity and no symptoms concerning for angina. Continue current medical therapy after modification 2. Chronic diastolic congestive heart failure (HCC) - ICD9: 428.32, 428.0, ICD10: I50.32 Doing well on current dose of furosemide and low-sodium diet. Repeat echocardiogram prior to next office visit - ECHO - PERFLUTREN LIPID MICROSPHERES 1.1 MG/ML INJECTION IN NS 10 ML - SODIUM CHLORIDE 0.9 % (FLUSH) INJECTION SYRINGE 3. Primary hypertension - ICD9: 401.9, ICD10: I10 Well-controlled on current regimen. 4. Mixed hyperlipidemia - ICD9: 272.2, ICD10: E78.2 Patient has been maintained on her path due to statin intolerance. Most recent fasting lipid panel was reviewed. LDL cholesterol 50 mg/dL representing an excellent response to therapy 5. Chronic right-sided heart failure (HCC) - ICD9: 428.0, ICD10: I50.812 - ECHO - PERFLUTREN LIPID MICROSPHERES 1.1 MG/ML INJECTION IN NS 10 ML - SODIUM CHLORIDE 0.9 % (FLUSH) INJECTION SYRINGE Demetrius Goldberg MD documented in this encounter [facility] 01-05-2025 Instructions Demetrius Goldberg MD - 01/05/2025 2:27 PM EDT We discussed your overall health and follow-up care: - You are feeling well and doing great overall. Your blood pressure is stable at 128/70, and your cholesterol levels are excellent with the help of Repatha. Please continue taking your medications as prescribed. We discussed your heart health: - It has been a couple of years since your last echocardiogram (echo). I will schedule a follow-up echo for July to monitor your heart function. This is not urgent but will help us ensure everything remains stable. I will see you after the echo to review the results. We discussed your upcoming colonoscopy: - You have an appointment tomorrow with Dr. Machuca's PA to discuss the procedure. - Follow the preparation instructions provided by your media coordinator: take your tacrolimus after your last bowel movement the night before the procedure and wait until after the procedure to take your next dose. We discussed your exercise routine: - You are doing a great job staying active with your treadmill and recumbent stair stepper workouts three times a week. Please continue this routine to maintain your health. No additional concerns or issues were identified during this visit. Please let me know if anything changes or if you have any new concerns. documented in this encounter [facility] 12-09-2024 Progress note Formatting of t his note might be different from the original. FK506 reviewed and stable at this time. No changes. Pily Glass RN [facility] 12-09-2024 Miscellaneous Notes FK506 reviewed and stable at this time. No changes. Pily Glass RN Labs received and reviewed. Labs are stable and consistent with previous levels. Will continue to follow. Pily Glass RN CBC received and reviewed. Consistent with previous levels. Will continue to follow. Pily Glass RN documented in this encounter [facility] 12-09-2024 Progress note Formatting of t his note might be different from the original. Labs received and reviewed. Labs are stable and consistent with previous levels. Will continue to follow. Pily Glass RN [facility] 12-08-2024 Progress note Formatting of t his note might be different from the original. CBC received and reviewed. Consistent with previous levels. Will continue to follow. Pily Glass RN [facility] 11-20-2024 Telephone encounter Note Patient's request for medication is as follows: Requested Prescriptions Pending Prescriptions Disp Refills sulfamethoxazole-trimethoprim (BACTRIM DS) 800-160 mg per tablet 13 tablet 5 Sig: Take 1 tablet by mouth every Sunday, Sunday, and Sunday. Please approve the above prescription(s) to electronically send to pharmacy. Pily Glass RN [facility] 11-20-2024 Miscellaneous Notes Patient's request for medication is as follows: Requested Prescriptions Pending Prescriptions Disp Refills sulfamethoxazole-trimethoprim (BACTRIM DS) 800-160 mg per tablet 13 tablet 5 Sig: Take 1 tablet by mouth every Sunday, Sunday, and Sunday. Please approve the above prescription(s) to electronically send to pharmacy. Pily Glass RN Patient requests refill of: Requested Prescriptions Pending Prescriptions Disp Refills sulfamethoxazole-trimethoprim (BACTRIM DS) 800-160 mg per tablet 13 tablet 5 Sig: Take 1 tablet by mouth every Sunday, Sunday, and Sunday. If approved, please e-script the attached order to [facility]. Thank you, Izabella Moody [facility] [phone] documented in this encounter [facility] 11-20-2024 Telephone encounter Note Patient requests refill of: Requested Prescriptions Pending Prescriptions Disp Refills sulfamethoxazole-trimethoprim (BACTRIM DS) 800-160 mg per tablet 13 tablet 5 Sig: Take 1 tablet by mouth every Sunday, Sunday, and Sunday. If approved, please e-script the attached order to [facility]. Thank you, Izabella Moody [facility] [phone] [facility] 11-12-2024 Telephone encounter Note Prescription Refill Information The patient has been identified by name and date of : Yes Caregiver verified no other encounters exist for this prescription request: Yes Caregiver confirmed with patient/requestor that no other refills are due, in the near future, with this provider at this time: Yes The last office visit in the department: 08/08/24 Does the patient have a future office visit with this provider/department: Yes Requested Prescriptions Pending Prescriptions Disp Refills NIFEdipine ER (PROCARDIA XL) 30 mg 24 hr tablet 90 tablet 0 Sig: Take 1 tablet by mouth once daily. Glenis Ascencio November 12, 2024 3:31 PM [facility] 11-12-2024 Miscellaneous Notes Prescription Refill Information The patient has been identified by name and date of : Yes Caregiver verified no other encounters exist for this prescription request: Yes Caregiver confirmed with patient/requestor that no other refills are due, in the near future, with this provider at this time: Yes The last office visit in the department: 08/08/24 Does the patient have a future office visit with this provider/department: Yes Requested Prescriptions Pending Prescriptions Disp Refills NIFEdipine ER (PROCARDIA XL) 30 mg 24 hr tablet 90 tablet 0 Sig: Take 1 tablet by mouth once daily. Glenis Ascencio November 12, 2024 3:31 PM documented in this encounter [facility] 11-11-2024 Progress note Formatting of t his note might be different from the original. Labs received and reviewed. Labs are stable and consistent with previous levels. Will continue to follow. Pily Glass RN [facility] 11-11-2024 Miscellaneous Notes Labs received and reviewed. Labs are stable and consistent with previous levels. Will continue to follow. Pily Glass RN Labs received and reviewed. Labs are stable and consistent with previous levels. Will continue to follow. Pily Glass RN CBC received and reviewed. Consistent with previous levels. Will continue to follow. Pily Glass RN documented in this encounter [facility] 11-10-2024 Progress note Formatting of t his note might be different from the original. Labs received and reviewed. Labs are stable and consistent with previous levels. Will continue to follow. Pily Glass RN [facility] 11-10-2024 Progress note Formatting of t his note might be different from the original. CBC received and reviewed. Consistent with previous levels. Will continue to follow. Pily Glass RN [facility] 10-07-2024 Progress note Formatting of t his note might be different from the original. Labs received and reviewed. Labs are stable and consistent with previous levels. Will continue to follow. Pily Glass RN [facility] 10-07-2024 Miscellaneous Notes Labs received and reviewed. Labs are stable and consistent with previous levels. Will continue to follow. Pily Glass RN Labs received and reviewed. Labs are stable and consistent with previous levels. Will continue to follow. Pily Glass RN CBC received and reviewed. Consistent with previous levels. Will continue to follow. Pily Glass RN documented in this encounter [facility] 10-06-2024 Progress note Formatting of t his note might be different from the original. Labs received and reviewed. Labs are stable and consistent with previous levels. Will continue to follow. Pily Glass RN [facility] 10-06-2024 Progress note Formatting of t his note might be different from the original. CBC received and reviewed. Consistent with previous levels. Will continue to follow. Pily Glass RN [facility] 09-09-2024 Progress note Formatting of t his note might be different from the original. Labs received and reviewed. Labs are stable and consistent with previous levels. Will continue to follow. Pily Glass RN [facility] 09-09-2024 Miscellaneous Notes Labs received and reviewed. Labs are stable and consistent with previous levels. Will continue to follow. Pily Glass RN Labs received and reviewed. Labs are stable and consistent with previous levels. Will continue to follow. Pily Glass RN CBC received and reviewed. Consistent with previous levels. Will continue to follow. Pily Glass RN documented in this encounter [facility] 09-08-2024 Progress note Formatting of t his note might be different from the original. Labs received and reviewed. Labs are stable and consistent with previous levels. Will continue to follow. Pily Glass RN [facility] 09-08-2024 Progress note Formatting of t his note might be different from the original. CBC received and reviewed. Consistent with previous levels. Will continue to follow. Pily Glass RN [facility] 08-27-2024 Telephone encounter Note Patient's request for medication is as follows: Requested Prescriptions Pending Prescriptions Disp Refills pantoprazole DR (PROTONIX) 40 mg tablet 30 tablet 5 Sig: Take 1 tablet by mouth once daily. Please approve the above prescription(s) to electronically send to pharmacy. Pily Glass RN [facility] 08-27-2024 Miscellaneous Notes Patient's request for medication is as follows: Requested Prescriptions Pending Prescriptions Disp Refills pantoprazole DR (PROTONIX) 40 mg tablet 30 tablet 5 Sig: Take 1 tablet by mouth once daily. Please approve the above prescription(s) to electronically send to pharmacy. Pily Glass, RN Patient requests refill of: Requested Prescriptions Pending Prescriptions Disp Refills pantoprazole DR (PROTONIX) 40 mg tablet 30 tablet 5 Sig: Take 1 tablet by mouth once daily. If approved, please e-script the attached order to [facility]. Thank you, zIabella Moody [facility] [phone] documented in this encounter [facility] 08-27-2024 Telephone encounter Note Patient requests refill of: Requested Prescriptions Pending Prescriptions Disp Refills pantoprazole DR (PROTONIX) 40 mg tablet 30 tablet 5 Sig: Take 1 tablet by mouth once daily. If approved, please e-script the attached order to [facility]. Thank you, Izabella Moody [facility] [phone] [facility] 08-12-2024 Telephone encounter Note Approval received for Repatha medication from 06/11/2024 to 08/12/2025 from insurance. Scanned in on 08/12/2024 for records. Katherin Ortiz LPN [facility] 08-12-2024 Miscellaneous Notes Approval received for Repatha medication from 06/11/2024 to 08/12/2025 from insurance. Scanned in on 08/12/2024 for records. Katherin Ortiz LPN Prior auth completed on covermymeds for Repatha. Awaiting decision from insurance company. Leslee Dean LPN documented in this encounter [facility] 08-12-2024 Telephone encounter Note Prior auth completed on covermymeds for Repatha. Awaiting decision from insurance company. Leslee Dean LPN [facility] 08-12-2024 Progress note Formatting of t his note might be different from the original. Labs received and reviewed. Labs are stable and consistent with previous levels. Will continue to follow. Pily Glass RN [facility] 08-12-2024 Miscellaneous Notes Labs received and reviewed. Labs are stable and consistent with previous levels. Will continue to follow. Pily Glass RN Labs received and reviewed. Labs are stable and consistent with previous levels. Will continue to follow. Pily Glass RN documented in this encounter [facility] 08-11-2024 Progress note Formatting of t his note might be different from the original. Labs received and reviewed. Labs are stable and consistent with previous levels. Will continue to follow. Pily Glass RN [facility] 08-08-2024 History of Presen t illness Narrative This note was created using Medefyriter. Subjective Jesus Sosa is a 74 year old male. He was doing well and exercising 30 minutes 3 days a week on an ETT. His hypertension and lipids were controlled, but lipid panel needed updating. He had a bone density in the past prior to transplant and wondered if this was due for recheck. Review of Systems Constitutional: Negative for appetite change, fatigue and fever. Respiratory: Negative for shortness of breath. Cardiovascular: Negative for chest pain and palpitations. Gastrointestinal: Negative for abdominal pain. Musculoskeletal: Negative for arthralgias. ACTIVE PROBLEM LIST Mixed Hyperlipidemia Primary Hypertension Stented Coronary Artery Coronary Artery Disease Involving [place] Coronary Artery of [place] Heart Without Angina Pectoris Obesity, Class I, Bmi 30-34.9 Ckd (Chronic Kidney Disease) Stage 3, Gfr 30-59 Ml/Min (Hcc) Vanessa (Obstructive Sleep Apnea) Nonalcoholic Fatty Liver Disease Without Nonalcoholic Steatohepatitis ([place]) Vitamin D Deficiency Liver Cirrhosis Secondary to [place] (Hcc) H/O Prostatectomy Liver Transplant Recipient (Hcc) Immunosuppression (Hcc) Chronic Diastolic Congestive Heart Failure (Hcc) Basal Cell Carcinoma of Multiple Sites of Head and Neck Edema of Both Legs Social History Tobacco Use Smoking status: Former Types: Cigars Smokeless tobacco: Never Tobacco comments: Last cigar 07/17/2017 Vaping Use Vaping status: Never Used Substance Use Topics Alcohol use: Not Currently Alcohol/week: 2.3 standard drinks of alcohol Types: 1 Glasses of Wine (5oz), 1 Mixed Drinks per week Comment: may have a drink once per month Drug use: No Current Outpatient Medications Medication Sig NIFEdipine ER (PROCARDIA XL) 30 mg 24 hr tablet TAKE 1 TABLET BY MOUTH EVERY DAY pantoprazole DR (PROTONIX) 40 mg tablet Take 1 tablet by mouth once daily. sulfamethoxazole-trimethoprim (BACTRIM DS) 800-160 mg per tablet Take 1 tablet by mouth every Sunday, Sunday, and Sunday. tacrolimus IR (PROGRAF) 1 mg capsule Take 2 capsules by mouth daily at 6 am AND 1 capsule daily at 6 pm. furosemide (LASIX) 20 mg tablet Take 1 tablet by mouth once daily. REPATHA SURECLICK 140 mg/mL pen injector INJECT 140 MG SUBCUTANEOUSLY EVERY 2 WEEKS. cholecalciferol, vitamin D3, (VITAMIN D3 ORAL) Take by mouth once daily. Amoxicillin 500 mg tablet Take 4 tablets by mouth as directed. Take 2g Amoxicillin 1 hr prior to dental procedure. lactobacillus rhamnosus (CULTURELLE) 10 billion cell capsule Take 1 capsule by mouth once daily. aspirin 81 mg chewable tablet Chew and swallow 1 tablet by mouth once daily. No current facility-administered medications for this visit. Objective BP 126/70 (BP Site: Right Arm, BP Position: Sitting, BP Cuff Size: Large Adult) Pulse 80 Temp 36.8 C (98.2 F) (Temporal) Resp 14 Ht 170.2 cm (5' 7) Wt 99.8 kg (220 lb 0.3 oz) SpO2 95% BMI 34.46 kg/m Physical Exam Constitutional: Appearance: Normal appearance. Cardiovascular: Rate and Rhythm: Normal rate and regular rhythm. Heart sounds: No murmur heard. No gallop. Pulmonary: Breath sounds: Normal breath sounds. Musculoskeletal: Right lower leg: No edema. Left lower leg: No edema. Assessment and Plan 1. Osteopenia of multiple sites - ICD9: 733.90, ICD10: M85.89 (primary diagnosis) - Reviewed the need for Calcium and Vitamin D supplements and weight bearing exercise as tolerated - DXA-AXIAL SKELETON - BD DXA TRABECULAR BONE SCORE (TBS) 2. Mixed hyperlipidemia - ICD9: 272.2, ICD10: E78.2 - Control undetermined, due for labs - Continue current medications - Counseled on healthy diet and regular exercise - Discussed need for and benefit of weight loss. BMI 34.46 kg/(m^2) - LIPID PANEL BASIC 3. Primary hypertension - ICD9: 401.9, ICD10: I10 - Controlled - Continue current medications 4. Stage 3a chronic kidney disease (HCC) - ICD9: 585.3, ICD10: N18.31 - eGFR: 56 Improving - Counseled on avoiding NSAIDs, adequate hydration 5. Liver transplant recipient (HCC) - ICD9: V42.7, ICD10: Z94.4 - Doing well and followed by transplant clinic. Willem Madsen MD documented in this encounter [facility] 07-23-2024 Telephone encounter Note Patient's request for medication is as follows: Requested Prescriptions Pending Prescriptions Disp Refills pantoprazole DR (PROTONIX) 40 mg tablet 30 tablet 11 Sig: Take 1 tablet by mouth once daily. Please approve the above prescription(s) to electronically send to pharmacy. FURTHER REFILLS TO COME FROM PCP. Pily Glass RN [facility] 07-23-2024 Miscellaneous Notes Patient's request for medication is as follows: Requested Prescriptions Pending Prescriptions Disp Refills pantoprazole DR (PROTONIX) 40 mg tablet 30 tablet 11 Sig: Take 1 tablet by mouth once daily. Please approve the above prescription(s) to electronically send to pharmacy. FURTHER REFILLS TO COME FROM PCP. Pily Glass RN Patient requests refill of: Requested Prescriptions Pending Prescriptions Disp Refills pantoprazole DR (PROTONIX) 40 mg tablet 30 tablet 11 Sig: Take 1 tablet by mouth once daily. If approved, please e-script the attached order to [facility]. Thank you, Hussein Tipton [facility] [phone] documented in this encounter [facility] 07-23-2024 Telephone encounter Note Patient requests refill of: Requested Prescriptions Pending Prescriptions Disp Refills pantoprazole DR (PROTONIX) 40 mg tablet 30 tablet 11 Sig: Take 1 tablet by mouth once daily. If approved, please e-script the attached order to [facility]. Thank you, Hussein Tipton [facility] [phone] [facility] 07-08-2024 Note HNO ID: [id number] Author: ALIA MEULLER MA Service: ? Author Type: Shank Maker Type: Progress Notes Filed: 07/08/2024 15:23 Note Text: Patient denies any cardiac issues or symptoms. [facility] 07-08-2024 History of Presen t illness Narrative Patient denies any cardiac issues or symptoms. Images from the original note were not included. [facility] [place] ([facility] [address] [facility] [address] OUTPATIENT VISIT DATE 07/08/2024 PRIMARY CARE PHYSICIAN: Willem Madsen [address] [place] [address] CHIEF COMPLAINT: HISTORY OF PRESENT ILLNESS: Mr. Sosa is a 74 year old gentleman with a history of coronary artery disease and prior stenting of the LAD and diagonal branch in 2017, chronic diastolic heart failure with likely right heart failure due to nonalcoholic steatohepatitis, liver transplant March 2023, hypertension, dyslipidemia who presents for routine follow-up. Patient continues to do well from a functional standpoint. He has not had symptoms of chest pain, chest pressure, or dyspnea on exertion. He denies symptoms concerning for congestive heart failure including PND, orthopnea, or lower extremity edema. He has not had palpitations, lightheadedness, dizziness, or syncope. PAST CARDIAC HISTORY: EF 61%, normal biventricular size/function, RVSP normal, no valvular disease, no PFO. RBBB, SR with SA, 1st degree AVB Large right pleural effusion, pending thoracentesis CAD with PCI x2 history (mLAD and Diag in 2018), scattered cor calcifications on non-con CT chest. Cath completed; patent stents, D1 large caliber vessel with a 90% focal stenosis off the first branch of the D1. LCX without concern. RCA with mild 30% focal stenosis. HLD, statin averse reaction (itching), on Praluent, LDL 83mg/dL VANESSA [place] cirrhosis, ascites, s/p TIPS, thrombocytopenia, portal HTN, grade I EV in 2019. Dyspnea with hypoxemia on supplemental oxygen in setting of pleural effusion, improved symptoms post prior thoracentesis. CKD 3 Hx. PAST MEDICAL HISTORY Diagnosis Date Abnormal LFTs (liver function tests) 06/27/2013 F/U [facility] Arthritis Ascites Asthma Basal cell carcinoma of multiple sites of head and neck 11/2023 Dr. Perez Martinez, dermatology Bladder neck obstruction 05/26/2009 BPH with obstruction/lower urinary tract symptoms BPH with obstruction/lower urinary tract symptoms 08/24/2008 Chronic diastolic congestive heart failure (HCC) 04/16/2023 Chronic prostatitis 05/26/2009 CKD (chronic kidney disease) Coronary artery disease Elevated prostate specific antigen (PSA) 07/19/2007 Esophageal reflux 1998 admitted for chest pain Esophageal varices (HCC) Essential hypertension 04/02/2009 Former cigar smoker Hepatic fibrosis (HCC) on elastography 02/09/2018 Dr. Kelby Suarez. 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 Platelets decreased (HCC) 10/02/2022 Pleural effusion associated with hepatic disorder PMH - PAST MEDICAL HISTORY OF 1998 shingles without rash Portal vein thrombosis RBBB (right bundle branch block) 03/30/2009 Right inguinal hernia 10/03/2022 Skin cancer nose, face, ears Snoring Splenomegaly Stented coronary artery 07/18/2017 MICHELLE to diagonal and mid LAD. Tubular adenoma of colon 02/08/2017 Umbilical hernia 01/08/2014 Unilateral inguinal hernia 05/30/2023 Unspecified essential hypertension 04/02/2009 Unspecified severe protein-calorie malnutrition (HCC) 09/06/2023 Urethral stricture 09/20/2022 PAST SURGICAL HISTORY Procedure Laterality Date CC CORONARY STENT 07/18/2017 MICHELLE x 2 to mild LAD and diagonal COLONOSCOPY FLX DX W/COLLJ SPEC WHEN PFRMD 02/08/2017 Colonoscopy COLONOSCOPY FLX DX W/COLLJ SPEC WHEN PFRMD 01/07/2020 Colonoscopy CYSTOSCOPY 10/12/2020 EGD 02/01/2021 EGD 01/05/2022 ESOPHAGOGASTRODUODENOSCOPY TRANSORAL DIAGNOSTIC 01/07/2020 EGD INSERT HEPATIC SHUNT (TIPS) 09/20/2022 Transjugular Intrahepatic Portosystemic Shunt LEFT HEART CATH,PERCUTANEOUS 01/08/2023 MOHS HEAD/NECK STAGE 1 <=5 01/10/2024 left cheek PARACENTESIS PAST SURGICAL HISTORY OF 03/31/2023 Orthoptic Liver Transplant Main [facility] PROSTATE NEEDLE BIOPSY 05/19/2009 PROSTATE NEEDLE BIOPSY 01/02/2013 PROSTATECTOMY SUPRAPUBIC SUBTOTAL 1/2 STAGES 08/08/2021 + Umbilical hernia repair REMV CATARACT EXTRACAP,INSERT LENS 10/18/2020 10/04/20, 10/18/20 SOCIAL HISTORY Social History Tobacco Use Smoking status: Former Types: Cigars Smokeless tobacco: Never Tobacco comments: Last cigar 07/17/2017 Vaping Use Vaping status: Never Used Substance Use Topics Alcohol use: Not Currently Alcohol/week: 2.3 standard drinks of alcohol Types: 1 Glasses of Wine (5oz), 1 Mixed Drinks per week Comment: may have a drink once per month Drug use: No FAMILY HISTORY Problem Relation Age of Onset Arthritis Mother Heart Mother Pacemaker Stroke Mother w/ bowel obstruction Cancer Mother skin Heart Father Pacemaker Cancer Father skin Lipids Brother Arrhythmia Brother Atrial fib. Lipids Brother Anesthesia Problems No Family History ALLERGIES: ALLERGIES Allergen Reactions Uikgllv-Frv-Bfj Red* Itching MEDICATIONS: sulfamethoxazole-trimethoprim (BACTRIM DS) 800-160 mg per tablet Take 1 tablet by mouth every Sunday, Sunday, and Sunday. NIFEdipine ER (PROCARDIA XL) 30 mg 24 hr tablet TAKE 1 TABLET BY MOUTH EVERY DAY pantoprazole DR (PROTONIX) 40 mg tablet Take 1 tablet by mouth once daily. tacrolimus IR (PROGRAF) 1 mg capsule Take 2 capsules by mouth daily at 6 am AND 1 capsule daily at 6 pm. furosemide (LASIX) 20 mg tablet Take 1 tablet by mouth once daily. REPATHA SURECLICK 140 mg/mL pen injector INJECT 140 MG SUBCUTANEOUSLY EVERY 2 WEEKS. cholecalciferol, vitamin D3, (VITAMIN D3 ORAL) Take by mouth once daily. Amoxicillin 500 mg tablet Take 4 tablets by mouth as directed. Take 2g Amoxicillin 1 hr prior to dental procedure. lactobacillus rhamnosus (CULTURELLE) 10 billion cell capsule Take 1 capsule by mouth once daily. aspirin 81 mg chewable tablet Chew and swallow 1 tablet by mouth once daily. REVIEW OF SYSTEMS: Review of Systems Constitutional: Negative for chills, fever, malaise/fatigue and weight loss. HENT: Negative for hearing loss and sore throat. Eyes: Negative for blurred vision and double vision. Respiratory: Negative. Cardiovascular: Negative. Gastrointestinal: Negative. Genitourinary: Negative for dysuria, frequency, hematuria and urgency. Musculoskeletal: Negative. Skin: Negative. Neurological: Negative for dizziness, seizures, loss of consciousness, weakness and headaches. Endo/Heme/Allergies: Negative for environmental allergies. Does not bruise/bleed easily. Psychiatric/Behavioral: Negative for depression. PHYSICAL EXAMINATION: BP 138/80 Pulse 84 Resp 18 Ht 5' 7 (1.70m) Wt 217 lb (98.4kg) SpO2 96% BMI 33.98 kg/(m^2). General: Pleasant gentleman sitting comfortable no apparent distress he is alert and oriented x3 HEENT: Carotid upstrokes are brisk without bruits no JVD appreciated. Pulmonary: Lungs are clear no rales, wheezes, rhonchi Cardiovascular: Normal S1, S2 with regular rate and rhythm. No murmurs, rubs, or gallops Extremities: Warm, well-perfused, 1+ pitting edema of the lower extremities bilaterally. CARDIOVASCULAR MEDICINE TESTING: Cardiac Catheterization 01/08/2023 Impression: 1. The mid LAD and first diagonal branch stents are patent. There is a branch off the first diagonal with severe (90%) focal stenosis making this a higher risk procedure. 2. The RCA has mild diffuse diease. LMT: _ The LMT is normal. Additional Comment: The LMT is a large caliber vessel. LAD: _ The 1st diagonal LAD is narrowed 90 % - focal disease. Additional Comment: The LAD is a large caliber vessel that wraps around the apex. The mid LAD and diagonal branch stents are patent. The first diagonal is a large caliber vessel. There is a branch proximally off the first diagonal with severe (90%) focal stenosis. There is a small second diagonal branch. LCX: _ The Circumflex is normal. Additional Comment: The LCx is a large caliber vessel. There is a moderate caliber OM1 and a large caliber OM2. No significant stenosis. RCA: _ The mid RCA is narrowed 30 % - focal disease. Additional Comment: The RCA is a large caliber vessel. There is diffuse mild disease. The mid RCA has mild (30%) focal stenosis. Echocardiogram 04/06/2023: - The left ventricle is normal in size. Left ventricular systolic function is normal. EF = 61 5% (2D biplane) Left ventricular diastolic function was not evaluated due to an arrhythmia. There is [id number] variability due to frequent PACs. - The right ventricle is normal in size. Right ventricular systolic function is normal. - Estimated right ventricular systolic pressure is likely underestimated due to a weak or incomplete tricuspid regurgitation signal and is, at least, 22 mmHg consistent with normal pulmonary artery pressures. Estimated right atrial pressure is 8 mmHg based on IVC assessment. - There are no significant valvular abnormalities. - Exam was compared with the prior echocardiographic exam performed on 06/19/2022. Similar findings. IMPRESSION: Mr. Sosa is a 74 year old gentleman with a history of coronary artery disease and prior coronary intervention 2017 with stenting of the LAD and diagonal branch. 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 He is also treated for hypertension and dyslipidemia. He presents the office to for routine follow-up PLAN AND RECOMMENDATIONS: 1. Coronary artery 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 artery of [place] heart without angina pectoris - ICD9: 414.01, ICD10: I25.10 (primary diagnosis) Patient doing well with excellent functional capacity and no symptoms concerning for angina. Continue medical therapy and risk factor modification 2. Chronic diastolic congestive heart failure (HCC) - ICD9: 428.32, 428.0, ICD10: I50.32 Patient doing well on current diuretic therapy low-sodium diet 3. Primary hypertension - ICD9: 401.9, ICD10: I10 Well-controlled on current regimen which includes nifedipine. 4. Mixed hyperlipidemia - ICD9: 272.2, ICD10: E78.2 Patient maintained on Repatha. He will need repeat fasting blood work this spring. Demetrius Goldberg MD documented in this encounter [facility] 07-08-2024 Note HNO ID: [id number] Author: DEMETRIUS GOLDBERG MD Service: ? Author Type: Physician Type: Progress Notes Filed: 07/08/2024 15:23 Note Text: [facility] [place] ([facility] [address] [facility] [address] OUTPATIENT VISIT DATE 07/08/2024 PRIMARY CARE PHYSICIAN: Willem Madsen [address] [place] [address] CHIEF COMPLAINT: HISTORY OF PRESENT ILLNESS: Mr. Sosa is a 74 year old gentleman with a history of coronary artery disease and prior stenting of the LAD and diagonal branch in 2018, chronic diastolic heart failure with likely right heart failure due to nonalcoholic steatohepatitis, liver transplant March 2023, hypertension, dyslipidemia who presents for routine follow-up. Patient continues to do well from a functional standpoint. He has not had symptoms of chest pain, chest pressure, or dyspnea on exertion. He denies symptoms concerning for congestive heart failure including PND, orthopnea, or lower extremity edema. He has not had palpitations, lightheadedness, dizziness, or syncope. PAST CARDIAC HISTORY: EF 61%, normal biventricular size/function, RVSP normal, no valvular disease, no PFO. RBBB, SR with SA, 1st degree AVB Large right pleural effusion, pending thoracentesis CAD with PCI x2 history (mLAD and Diag in 2018), scattered cor calcifications on non-con CT chest. Cath completed; patent stents, D1 large caliber vessel with a 90% focal stenosis off the first branch of the D1. LCX without concern. RCA with mild 30% focal stenosis. HLD, statin averse reaction (itching), on Praluent, LDL 83mg/dL VANESSA DURANT cirrhosis, ascites, s/p TIPS, thrombocytopenia, portal HTN, grade I EV in 2019. Dyspnea with hypoxemia on supplemental oxygen in setting of pleural effusion, improved symptoms post prior thoracentesis. CKD 3 Hx. PAST MEDICAL HISTORY Diagnosis Date Abnormal LFTs (liver function tests) 06/27/2013 F/U [facility] Arthritis Ascites Asthma Basal cell carcinoma of multiple sites of head and neck 11/2023 Dr. 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 Kelby Suarez. 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 Platelets decreased (HCC) 10/02/2022 Pleural effusion associated with hepatic disorder PMH - PAST MEDICAL HISTORY OF 1998 shingles without rash Portal vein thrombosis RBBB (right bundle branch block) 03/30/2009 Right inguinal hernia 10/03/2022 Skin cancer nose, face, ears Snoring Splenomegaly Stented coronary artery 07/18/2017 MICHELLE to diagonal and mid LAD. Tubular adenoma of colon 02/08/2017 Umbilical hernia 01/08/2014 Unilateral inguinal hernia 05/30/2023 Unspecified essential hypertension 04/02/2009 Unspecified severe protein-calorie malnutrition (HCC) 09/06/2023 Urethral stricture 09/20/2022 PAST SURGICAL HISTORY Procedure Laterality Date CC CORONARY STENT 07/18/2017 MICHELLE x 2 to mild LAD and diagonal COLONOSCOPY FLX DX W/COLLJ SPEC WHEN PFRMD 02/08/2017 Colonoscopy COLONOSCOPY FLX DX W/COLLJ SPEC WHEN PFRMD 01/07/2020 Colonoscopy CYSTOSCOPY 10/12/2020 EGD 02/01/2021 EGD 01/05/2022 ESOPHAGOGASTRODUODENOSCOPY TRANSORAL DIAGNOSTIC 01/07/2020 EGD INSERT HEPATIC SHUNT (TIPS) 09/20/2022 Transjugular Intrahepatic Portosystemic Shunt LEFT HEART CATH,PERCUTANEOUS 01/08/2023 MOHS HEAD/NECK STAGE 1 <=5 01/10/2024 left cheek PARACENTESIS PAST SURGICAL HISTORY OF 03/31/2023 Orthoptic Liver Transplant Main [facility] PROSTATE NEEDLE BIOPSY 05/19/2009 PROSTATE NEEDLE BIOPSY 01/02/2013 PROSTATECTOMY SUPRAPUBIC SUBTOTAL 1/2 STAGES 08/08/2021 + Umbilical hernia repair REMV CATARACT EXTRACAP,INSERT LENS 10/18/2020 10/04/20, 10/18/20 SOCIAL HISTORY Social History Tobacco Use Smoking status: Former Types: Cigars Smokeless tobacco: Never Tobacc (more content not included)... [facility] 05-26-2024 Telephone encounter Note Patient's request for medication is as follows: Requested Prescriptions Pending Prescriptions Disp Refills sulfamethoxazole-trimethoprim (BACTRIM DS) 800-160 mg per tablet 13 tablet 5 Sig: Take 1 tablet by mouth every Sunday, Sunday, and Sunday. Please approve the above prescription(s) to electronically send to pharmacy. Pily Glass RN [facility] 05-26-2024 Miscellaneous Notes Patient's request for medication is as follows: Requested Prescriptions Pending Prescriptions Disp Refills sulfamethoxazole-trimethoprim (BACTRIM DS) 800-160 mg per tablet 13 tablet 5 Sig: Take 1 tablet by mouth every Sunday, Sunday, and Sunday. Please approve the above prescription(s) to electronically send to pharmacy. Pily Glass RN Patient requests refill of: Requested Prescriptions Pending Prescriptions Disp Refills sulfamethoxazole-trimethoprim (BACTRIM DS) 800-160 mg per tablet 13 tablet 5 Sig: Take 1 tablet by mouth every Sunday, Sunday, and Sunday. If approved, please e-script the attached order to [facility]. Thank you, Hussein Tipton RPh [facility] [phone] documented in this encounter [facility] 05-26-2024 Telephone encounter Note Patient requests refill of: Requested Prescriptions Pending Prescriptions Disp Refills sulfamethoxazole-trimethoprim (BACTRIM DS) 800-160 mg per tablet 13 tablet 5 Sig: Take 1 tablet by mouth every Sunday, Sunday, and Sunday. If approved, please e-script the attached order to [facility]. Thank you, Hussein Tipton RPh [facility] [phone] [facility] 05-23-2024 History of Presen t illness Narrative CDM Telephonic Outreach Provider Action/FYI -chf, ckd Contacted for: Routine Telephonic Outreach Contact made with patient: Yes Patient identified by name and date of . Discussed care with patient Are you experiencing any new or worsening symptoms you need to talk about today? No Disease Specific Do you check your blood pressure at home? Yes, Enter readings: 110s-130s Do you have new or worsening shortness of breath with activity? No Do you have new or worsening trouble breathing while lying flat? No Do you have new or worsening swelling of legs, feet or ankles? No Do you feel like you are dehydrated for any reason, including not being able to eat or drink normally, or having less urine/much darker urine than normal for you? No Do you check your daily weight at home? Yes, Have you noticed a sudden gain in weight greater than three pounds in a day or three pounds in a week? No Based on paper products supervisor, the following disposition is advised: No symptoms or symptoms present, not severe. Routed to: No Action Needed NILSON Education Provided this Outreach: No Rocio Uriarte RN May 23, 2024 2:11 PM documented in this encounter [facility] 05-05-2024 Telephone encounter Note The following approved medication requests have been transmitted electronically. Requested Prescriptions Signed Prescriptions Disp Refills NIFEdipine ER (PROCARDIA XL) 30 mg 24 hr tablet 90 tablet 0 Sig: TAKE 1 TABLET BY MOUTH EVERY DAY Authorizing Provider: FLORENCE LOBATO RN [facility] 05-05-2024 Miscellaneous Notes The following approved medication requests have been transmitted electronically. Requested Prescriptions Signed Prescriptions Disp Refills NIFEdipine ER (PROCARDIA XL) 30 mg 24 hr tablet 90 tablet 0 Sig: TAKE 1 TABLET BY MOUTH EVERY DAY Authorizing Provider: FLORENCE LOBATO RN documented in this encounter [facility] 04-14-2024 History of Presen t illness Narrative POST LIVER TRANSPLANT FOLLOW UP Jesus Sosa [id number] Date of Transplant: 03/31/24 Original liver diagnosis: [facility] Explanted liver: [facility] Medication List: Current Outpatient Medications Medication Sig tacrolimus IR (PROGRAF) 1 mg capsule Take 2 capsules by mouth daily at 6 am AND 1 capsule daily at 6 pm. furosemide (LASIX) 20 mg tablet Take 1 tablet by mouth once daily. NIFEdipine ER (PROCARDIA XL) 30 mg 24 hr tablet take 1 tablet by mouth every day pantoprazole DR (PROTONIX) 40 mg tablet Take 1 tablet by mouth once daily. REPATHA SURECLICK 140 mg/mL pen injector INJECT 140 MG SUBCUTANEOUSLY EVERY 2 WEEKS. sulfamethoxazole-trimethoprim (BACTRIM DS) 800-160 mg per tablet Take 1 tablet by mouth every Sunday, Sunday, and Sunday. cholecalciferol, vitamin D3, (VITAMIN D3 ORAL) Take by mouth once daily. Amoxicillin 500 mg tablet Take 4 tablets by mouth as directed. Take 2g Amoxicillin 1 hr prior to dental procedure. lactobacillus rhamnosus (CULTURELLE) 10 billion cell capsule Take 1 capsule by mouth once daily. aspirin 81 mg chewable tablet Chew and swallow 1 tablet by mouth once daily. No current facility-administered medications for this visit. Vitals: BP 149/84[patient does not take BP meds[ Pulse 59 Temp 97.8 Resp 16 Ht 5' 7 (1.70m) Wt 212 lb 11.9 oz (96.5kg) SpO2 98% BMI 33.31 kg/(m^2). PHYSICAL EXAMINATION: General appearance: Well appearing, alert, in no acute distress, well-hydrated, well nourished. Skin: skin color, texture, turgor normal, no rashes or lesions Head: normal Abdomen: soft, ND,NT Extremities: Extremities normal. No deformities, edema, or skin discoloration. Good capillary refill. Neuro: Negative. ASSESSMENT: Mr. Sosa is a 74 y/o male s/p OLT (DBD) for DURANT Cirrhosis. He presents to clinic today for his 1 year post transplant follow up. He feels good and is doing very well, he did not have any concerns to address today relating to his liver. He has continued to gain weight in the last 6+ mo and Esperanza cautioned him re; DURANT hx and rapid weight gain. He will plan to restrict his diet a bit more and has been exercising. PLAN: - Labs reviewed, liver and kidney function are stable - IS Tacrolimus 2 mg bid--.>,decrease to 2 mg in the am and 1 mg in the pm, MMF 500 mg bid -stop MMF when supply runs out in ~5 weeks. - Inguinal hernia - Saw Dr. Russell saw him in the past, it is noticeable but not too bothersome. - He is following with Dr. Goldberg from Cardiology for hx. of CAD/HTN - Derm follow up Q6 mo- for Basal cell Ca on his face, and his one on his leg as well. I told him to keep us updated with any further NEW skin cancers - Bactrim- continue (he continues to have cigars) - Bone density done last year, ostepenia - Prostectomy pre txp for BPH - RTC in 1 year. Abisai Mcclelland APRN.JOYCELYN documented in this encounter [facility] 04-12-2024 History of Presen t illness Narrative CDM Telephonic Outreach Provider Action/FYI -chf, ckd Prefers calls every other month Contacted for: Routine Telephonic Outreach Contact made with patient: Yes Patient identified by name and date of . Discussed care with patient Are you experiencing any new or worsening symptoms you need to talk about today? No Disease Specific Do you check your blood pressure at home? Yes, Enter readings: mornings 110s-130s/60s-70s evenings 143/77, 114/69, 129/76 Do you have new or worsening shortness of breath with activity? No Do you have new or worsening trouble breathing while lying flat? No Do you have new or worsening swelling of legs, feet or ankles? No, no different than it has been, swelling present at the end of the day but normal in the mornings Do you check your daily weight at home? Yes, Have you noticed a sudden gain in weight greater than three pounds in a day or three pounds in a week? No Based on paper products supervisor, the following disposition is advised: No symptoms or symptoms present, not severe. Routed to: No Action Needed NILSON Education Provided this Outreach: No Rocio Uriarte RN April 12, 2024 2:27 PM documented in this encounter [facility] 03-20-2024 History of Presen t illness Narrative Patient presents for COVID vaccine. Denies any problems at this time. Tolerated injection well. Aylin Candelaria LPN documented in this encounter [facility] 03-12-2024 History of Presen t illness Narrative HBV DNA Ordered and patient notified. Pily Glass RN documented in this encounter [facility] 02-18-2024 History of Presen t illness Narrative CDM Telephonic Outreach Provider Action/FYI -chf, ckd ADLs/fall risk/SDOH updated 02/18/24 Pt checks his BP, temp and wt twice daily ever since his Liver Tx 03/2023; exercises 3 times/week on treadmill at the gym Prefers to keep outreach calls every 2 months Contacted for: Routine Telephonic Outreach Contact made with patient: Yes Patient identified by name and date of . Discussed care with patient Are you experiencing any new or worsening symptoms you need to talk about today? No Disease Specific Do you check your blood pressure at home? Yes, Enter readings: 120s/70s Do you have new or worsening shortness of breath with activity? No Do you have new or worsening trouble breathing while lying flat? No Do you have new or worsening swelling of legs, feet or ankles? No Do you feel like you are dehydrated for any reason, including not being able to eat or drink normally, or having less urine/much darker urine than normal for you? No Do you check your daily weight at home? Yes, Have you noticed a sudden gain in weight greater than three pounds in a day or three pounds in a week? No 30# wt gain since liver tx 03/2023 but no daily/weekly changes to indicate fluid retention Based on paper products supervisor, the following disposition is advised: No symptoms or symptoms present, not severe. Routed to: No Action Needed NILSON Education Provided this Outreach: No Rocio Uriarte RN February 18, 2024 12:43 PM documented in this encounter [facility] 02-08-2024 Instructions Willem Madsen MD - 02/08/2024 11:02 AM EDT Screening schedule The following prevention plan is recommended: Covid-19 Vaccine( season) due on 05/03/2023 WHAT YOU CAN DO TO PREVENT FALLS Many falls can be prevented. By making some changes, you can lower your chances of falling. Four things YOU can do to prevent falls for you* and your caregiver 1. Begin a regular exercise program Exercise is one of the most important ways to lower your chances of falling. It makes you stronger and helps you feel better. Exercises that improve balance and coordination (like [place]) are the most helpful. Lack of exercise leads to weakness and increases your chances of falling. Ask your doctor or health care provider about the best type of exercise program for you. 2. Have your health care provider review your medicines Have your doctor or pharmacist review all the medicines you take, even [id number] medicines. As you get older, the way medicines work in your body can change. Some medicines, or combinations of medicines, can make you sleepy or dizzy and can cause you to fall. 3. Have your vision checked Have your eyes checked by an eye doctor at least once a year. You may be wearing the wrong glasses or have a condition like glaucoma or cataracts that limits your vision. Poor vision can increase your chances of falling. 4. Make your home safer About half of all falls happen at home. To make your home safer: Remove things you can trip over (like papers, books, clothes, and shoes) from stairs and places where you walk. Remove small throw rugs or use double-sided tape to keep the rugs from slipping. Keep items you use often in cabinets you can reach easily without using a step stool. Have grab bars put in next to your toilet and in the tub or shower. Use non-slip mats in the bathtub and on shower floors. Improve the lighting in your home. As you get older, you need brighter lights to see well. Hang light-weight curtains or shades to reduce glare. Have handrails and lights put in on all staircases. Wear shoes both inside and outside the house. Avoid going barefoot or wearing slippers. For more information, contact: Centers for Disease Control and Prevention www.cdc.gov/injury * This information may not apply if you have certain medical conditions. documented in this encounter [facility] 02-08-2024 History of Presen t illness Narrative This note was created using [employer]. Subjective Jesus Sosa is a 74 year old male. He was doing well. We reviewed recent transplant labs with elevating glucose levels. His hypertension, coronary artery disease, congestive heart failure and hyperlipidemia were controlled. He was recently diagnosed with basal cell ca of head, neck, and extremity. He had Moh's of the left cheek earlier this month at a non [facility] facility. We updated his problem list. He had hernias that were not an issue at this time, and protein stores have normalized. Platelets have normalized. Review of Systems Constitutional: Negative for fatigue, fever and unexpected weight change. HENT: Negative. Respiratory: Negative for cough and shortness of breath. Cardiovascular: Positive for leg swelling. Negative for chest pain and palpitations. Gastrointestinal: Negative for abdominal pain and diarrhea. Neurological: Negative for dizziness and headaches. ACTIVE PROBLEM LIST Mixed Hyperlipidemia Primary Hypertension Stented Coronary Artery Coronary Artery Disease Involving [place] Coronary Artery of [place] Heart Without Angina Pectoris Obesity, Class I, Bmi 30-34.9 Ckd (Chronic Kidney Disease) Stage 3, Gfr 30-59 Ml/Min (Hcc) Vanessa (Obstructive Sleep Apnea) Nonalcoholic Fatty Liver Disease Without Nonalcoholic Steatohepatitis ([place]) Vitamin D Deficiency Liver Cirrhosis Secondary to [place] (Hcc) H/O Prostatectomy Liver Transplant Recipient (Hcc) Immunosuppression (Hcc) Chronic Diastolic Congestive Heart Failure (Hcc) Basal Cell Carcinoma of Multiple Sites of Head and Neck Edema of Both Legs Social History Tobacco Use Smoking status: Former Types: Cigars Smokeless tobacco: Never Tobacco comments: Last cigar 07/17/2017 Vaping Use Vaping status: Never Used Substance Use Topics Alcohol use: Not Currently Alcohol/week: 2.3 standard drinks of alcohol Types: 1 Glasses of Wine (5oz), 1 Mixed Drinks per week Comment: may have a drink once per month Drug use: No Current Outpatient Medications Medication Sig NIFEdipine ER (PROCARDIA XL) 30 mg 24 hr tablet take 1 tablet by mouth every day mycophenolate mofetil (CELLCEPT) 250 mg capsule Take 2 capsules by mouth two times a day. pantoprazole DR (PROTONIX) 40 mg tablet Take 1 tablet by mouth once daily. REPATHA SURECLICK 140 mg/mL pen injector INJECT 140 MG SUBCUTANEOUSLY EVERY 2 WEEKS. sulfamethoxazole-trimethoprim (BACTRIM DS) 800-160 mg per tablet Take 1 tablet by mouth every Sunday, Sunday, and Sunday. cholecalciferol, vitamin D3, (VITAMIN D3 ORAL) Take by mouth once daily. furosemide (LASIX) 20 mg tablet Take 1 tablet by mouth once daily. Amoxicillin 500 mg tablet Take 4 tablets by mouth as directed. Take 2g Amoxicillin 1 hr prior to dental procedure. tacrolimus IR (PROGRAF) 1 mg capsule Take 2 capsules by mouth two times a day. lactobacillus rhamnosus (CULTURELLE) 10 billion cell capsule Take 1 capsule by mouth once daily. aspirin 81 mg chewable tablet Chew and swallow 1 tablet by mouth once daily. tacrolimus IR (PROGRAF) 0.5 mg capsule Take 1 capsule by mouth two times a day. Take with the 1 mg capsules for a total of 2.5 mg bid No current facility-administered medications for this visit. Objective BP 126/74 (BP Site: Left Arm, BP Position: Sitting, BP Cuff Size: Large Adult) Pulse 69 Temp 36.6 C (97.8 F) Resp 16 Ht 170.2 cm (5' 7) Wt 95.1 kg (209 lb 10.5 oz) SpO2 97% BMI 32.84 kg/m Physical Exam Constitutional: General: He is not in acute distress. Appearance: He is not ill-appearing. Eyes: General: No scleral icterus. Conjunctiva/sclera: Conjunctivae normal. Cardiovascular: Rate and Rhythm: Normal rate and regular rhythm. Heart sounds: No murmur heard. No gallop. Pulmonary: Breath sounds: Normal breath sounds. Abdominal: General: There is no distension. Palpations: Abdomen is soft. Tenderness: There is no abdominal tenderness. Musculoskeletal: Right lower le+ Pitting Edema present. Left lower le+ Pitting Edema present. Neurological: Mental Status: He is alert. Gait: Gait normal. Latest Ref Rng 02/08/2024 Hemoglobin A1C (POCT) 4.3 - 5.6 % 5.2 Assessment and Plan 1. Medicare annual wellness visit, subsequent - ICD9: V70.0, ICD10: Z00.00 (primary diagnosis) See wellness note. 2. Basal cell carcinoma of multiple sites of head and neck - ICD9: 173.41, ICD10: C44.[address] Perez Martinez, local senior data integration developer. 3. Screening for depression - ICD9: V79.0, ICD10: Z13.31 - DEPRESSION SCREENING 4. Encounter for screening examination for other mental health and behavioral disorders - ICD9: V79.8, ICD10: Z13.39 - ANXIETY SCREENING 5. Chronic diastolic congestive heart failure (HCC) - ICD9: 428.32, 428.0, ICD10: I50.32 - HFpEF 50+ - Continue current medications - FUROSEMIDE 20 MG TABLET - COMPRESSION STOCKINGS 6. Primary hypertension - ICD9: 401.9, ICD10: I10 - Controlled - Continue current medications 7. Coronary artery 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 artery of [place] heart without angina pectoris - ICD9: 414.01, ICD10: I25.10 - Stable. 8. Edema of both legs - ICD9: 782.3, ICD10: R60.0 - COMPRESSION STOCKINGS refilled. 9. Prediabetes - ICD9: 790.29, ICD10: R73.03 - Reduce carbohydrate portions. - HEMOGLOBIN A1C (POC) 10. 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) - ICD9: 571.8, 571.5, ICD10: K75.81, K74.60 - S/P transplant. 11. Stage 3 chronic kidney disease, unspecified whether stage 3a or 3b CKD (HCC) - ICD9: 585.3, ICD10: N18.30 - eGFR: 56 Stable - Counseled on avoiding NSAIDs, adequate hydration Willem Madsen MD Images from the original note were not included. Jesus Sosa is a 74 year old male here for a Medicare wellness visit. Medicare Health Risk Assessment General Health Good Exercise: Minutes/Day 20 min Exercise: Days/Week 3 days Alcohol: Daily Use Never Alcohol: Drinks/Day Patient does not drink Alcohol: 6 or more drinks Never Feel off balance No Concerns: Teeth/Dentures No Concerns: Sexual function No Troubled by feelings None of the above Frequency: Eating healthy diet Nearly every day ADLs requiring help None. Safety precautions in home/vehicle Yes Smoke, vape, chews tobacco No Difficulty hearing Yes, I wear a hearing aid Difficulty seeing No Current Providers Specialists: I have reviewed specialist-related care of the patient in the medical record. Current care team: Patient Care Team: Willem Madsen MD as PCP - General Other specialists: Dr. Nabor Goldberg, cardiology. Dr. Mckeon, optometry. Dr. David Curry, [place] [facility], sleep medicine. [facility] Transplant Team. Dr. Perez Martinez, [facility]. Medical/Family history review Reviewed and updated problem list, medical/surgical/family/social history, medications, and allergies. Opioid use review Opioid Medications (last 90 days) No data to display Anxiety/Depression screening PHQ-9 Score: 1 (Minimal Depression) OTTONIEL-7 Score: 0. Recommendation: no further intervention at this time Cognitive screening Mini Cog Score: 5 Cognitive screening reviewed and No further action needed (score 3-5). Functional Observation Was the patient's Timed Up & Go test unsteady or ? 12 seconds? No Advance Care Planning Surrogate decision maker and/or advance care plan documented Measurements BP 126/74 (BP Site: Left Arm, BP Position: Sitting, BP Cuff Size: Large Adult) Pulse 69 Temp 36.6 C (97.8 F) Resp 16 Ht 170.2 cm (5' 7) Wt 95.1 kg (209 lb 10.5 oz) SpO2 97% BMI 32.84 kg/m Vision Screening: Follows with optometry/ophthalmology Assessment/Plan Medicare annual wellness visit, subsequent (Z00.00) - Counseled on healthy diet and regular exercise - Fall avoidance information provided - Personalized prevention plan provided - Discussed need for and benefit of weight loss. BMI 32.84 kg/(m^2) - Vaccines reviewed. documented in this encounter [facility] 02-05-2024 Telephone encounter Note Patient's request for medication is as follows: Requested Prescriptions Pending Prescriptions Disp Refills mycophenolate mofetil (CELLCEPT) 250 mg capsule 120 capsule 5 Sig: Take 2 capsules by mouth two times a day. pantoprazole DR (PROTONIX) 40 mg tablet 30 tablet 2 Sig: Take 1 tablet by mouth once daily. Please approve the above prescription(s) to electronically send to pharmacy. Pily Glass RN [facility] 02-05-2024 Miscellaneous Notes Patient's request for medication is as follows: Requested Prescriptions Pending Prescriptions Disp Refills mycophenolate mofetil (CELLCEPT) 250 mg capsule 120 capsule 5 Sig: Take 2 capsules by mouth two times a day. pantoprazole DR (PROTONIX) 40 mg tablet 30 tablet 2 Sig: Take 1 tablet by mouth once daily. Please approve the above prescription(s) to electronically send to pharmacy. Pily Glass RN Patient requests refill of: Requested Prescriptions Pending Prescriptions Disp Refills mycophenolate mofetil (CELLCEPT) 250 mg capsule 120 capsule 5 Sig: Take 2 capsules by mouth two times a day. pantoprazole DR (PROTONIX) 40 mg tablet 30 tablet 2 Sig: Take 1 tablet by mouth once daily. If approved, please e-script the attached order to [facility]. Thank you, Hussein Tipton RPh [facility] [phone] documented in this encounter [facility] 02-05-2024 Telephone encounter Note Patient requests refill of: Requested Prescriptions Pending Prescriptions Disp Refills mycophenolate mofetil (CELLCEPT) 250 mg capsule 120 capsule 5 Sig: Take 2 capsules by mouth two times a day. pantoprazole DR (PROTONIX) 40 mg tablet 30 tablet 2 Sig: Take 1 tablet by mouth once daily. If approved, please e-script the attached order to [facility]. Thank you, Hussein Tipton RPh [facility] [phone] [facility] 12-24-2023 History of Presen t illness Narrative CDM Telephonic Outreach Provider Action/FYI Every 2 months Contacted for: Routine Telephonic Outreach Contact made with patient: Yes Patient identified by name and date of . Discussed care with patient Are you experiencing any new or worsening symptoms you need to talk about today? No Disease Specific Do you check your blood pressure at home? No Do you have new or worsening shortness of breath with activity? No Based on paper products supervisor, the following disposition is advised: No symptoms or symptoms present, not severe. Routed to: No Action Needed NILSON Education Provided this Outreach: No -has been going to gym and walking on treadmill for 30min, 3 times a week -recent derm procedures for skin cancer areas Florence Baez RN December 24, 2023 documented in this encounter [facility] 12-03-2023 Telephone encounter Note Pharmacy electronically requests the following refill(s) Requested Prescriptions Pending Prescriptions Disp Refills REPATHA SURECLICK 140 mg/mL pen injector [Pharmacy Med Name: REPATHA 140 MG/ML SURECLICK] 6 Each 3 Sig: INJECT 140 MG SUBCUTANEOUSLY EVERY 2 WEEKS. Shaneka Izquierdo RN [facility] 12-03-2023 Miscellaneous Notes Pharmacy electronically requests the following refill(s) Requested Prescriptions Pending Prescriptions Disp Refills REPATHA SURECLICK 140 mg/mL pen injector [Pharmacy Med Name: REPATHA 140 MG/ML SURECLICK] 6 Each 3 Sig: INJECT 140 MG SUBCUTANEOUSLY EVERY 2 WEEKS. Shaneka Izquierdo RN documented in this encounter [facility] 12-02-2023 Telephone encounter Note Patient's request for medication is as follows: Requested Prescriptions Pending Prescriptions Disp Refills sulfamethoxazole-trimethoprim (BACTRIM DS) 800-160 mg per tablet 13 tablet 5 Sig: Take 1 tablet by mouth every Sunday, Sunday, and Sunday. Please approve the above prescription(s) to electronically send to pharmacy. Patient's request for medication is as follows: Requested Prescriptions Pending Prescriptions Disp Refills sulfamethoxazole-trimethoprim (BACTRIM DS) 800-160 mg per tablet 13 tablet 5 Sig: Take 1 tablet by mouth every Sunday, Sunday, and Sunday. Please approve the above prescription(s) to electronically send to pharmacy. THIAGO De La Torre RN [facility] 12-02-2023 Miscellaneous Notes Patient's request for medication is as follows: Requested Prescriptions Pending Prescriptions Disp Refills sulfamethoxazole-trimethoprim (BACTRIM DS) 800-160 mg per tablet 13 tablet 5 Sig: Take 1 tablet by mouth every Sunday, Sunday, and Sunday. Please approve the above prescription(s) to electronically send to pharmacy. Patient's request for medication is as follows: Requested Prescriptions Pending Prescriptions Disp Refills sulfamethoxazole-trimethoprim (BACTRIM DS) 800-160 mg per tablet 13 tablet 5 Sig: Take 1 tablet by mouth every Sunday, Sunday, and Sunday. Please approve the above prescription(s) to electronically send to pharmacy. THIAGO De La Torre RN Patient requests refill of: Requested Prescriptions Pending Prescriptions Disp Refills sulfamethoxazole-trimethoprim (BACTRIM DS) 800-160 mg per tablet 13 tablet 5 Sig: Take 1 tablet by mouth every Sunday, Sunday, and Sunday. If approved, please e-script the attached order to [facility]. [facility] [phone] documented in this encounter [facility] 11-30-2023 Telephone encounter Note Patient requests refill of: Requested Prescriptions Pending Prescriptions Disp Refills sulfamethoxazole-trimethoprim (BACTRIM DS) 800-160 mg per tablet 13 tablet 5 Sig: Take 1 tablet by mouth every Sunday, Sunday, and Sunday. If approved, please e-script the attached order to [facility]. [facility], [facility] [phone] [facility] 11-15-2023 Telephone encounter Note Patient's request for medication is as follows: Requested Prescriptions Pending Prescriptions Disp Refills mycophenolate mofetil (CELLCEPT) 250 mg capsule 240 capsule 2 Sig: Take 2 capsules by mouth two times a day. Please approve the above prescription(s) to electronically send to pharmacy. Pily Glass RN [facility] 11-15-2023 Miscellaneous Notes Patient's request for medication is as follows: Requested Prescriptions Pending Prescriptions Disp Refills mycophenolate mofetil (CELLCEPT) 250 mg capsule 240 capsule 2 Sig: Take 2 capsules by mouth two times a day. Please approve the above prescription(s) to electronically send to pharmacy. Pily Glass RN Patient requests refill of: Requested Prescriptions Pending Prescriptions Disp Refills mycophenolate mofetil (CELLCEPT) 250 mg capsule 240 capsule 2 Sig: Take 2 capsules by mouth two times a day. If approved, please e-script the attached order to [facility]. Thank you, Essence Laureano [facility] [phone] documented in this encounter [facility] 11-15-2023 Telephone encounter Note Patient requests refill of: Requested Prescriptions Pending Prescriptions Disp Refills mycophenolate mofetil (CELLCEPT) 250 mg capsule 240 capsule 2 Sig: Take 2 capsules by mouth two times a day. If approved, please e-script the attached order to [facility]. Thank you, Essence Laureano [facility] [phone] [facility] 11-07-2023 Telephone encounter Note Patient's request for medication is as follows: Requested Prescriptions Pending Prescriptions Disp Refills pantoprazole DR (PROTONIX) 40 mg tablet 30 tablet 2 Sig: Take 1 tablet by mouth once daily. Please approve the above prescription(s) to electronically send to pharmacy. Further refills to come from PCP. Pily Glass RN [facility] 11-07-2023 Miscellaneous Notes Patient's request for medication is as follows: Requested Prescriptions Pending Prescriptions Disp Refills pantoprazole DR (PROTONIX) 40 mg tablet 30 tablet 2 Sig: Take 1 tablet by mouth once daily. Please approve the above prescription(s) to electronically send to pharmacy. Further refills to come from PCP. Pily Glass RN documented in this encounter [facility] 10-29-2023 History of Presen t illness Narrative [facility] Telephonic Outreach Provider Action/FYI Every 2 months Contacted for: Routine Telephonic Outreach Contact made with patient: Yes Patient identified by name and date of . Discussed care with patient Are you experiencing any new or worsening symptoms you need to talk about today? No Disease Specific Do you check your blood pressure at home? No Do you have new or worsening shortness of breath with activity? No Based on paper products supervisor, the following disposition is advised: No symptoms or symptoms present, not severe. Routed to: No Action Needed NILSON Education Provided this Outreach: No -patient has just started to work on getting to the gym. His goal is to go 2-3 days a week but feeling really well post transplant Florence Baez RN October 29, 2023 documented in this encounter [facility] 10-08-2023 History of Presen t illness Narrative POST LIVER TRANSPLANT FOLLOW UP Jesus Sosa [id number] Date of Transplant: 03/31/23 Original liver diagnosis: [facility] Explanted liver:[facility] Medication List: Current Outpatient Medications Medication Sig cholecalciferol, vitamin D3, (VITAMIN D3 ORAL) Take by mouth once daily. furosemide (LASIX) 20 mg tablet Take 1 tablet by mouth once daily. sulfamethoxazole-trimethoprim (BACTRIM DS) 800-160 mg per tablet Take 1 tablet by mouth every Sunday, Sunday, and Sunday. NIFEdipine ER (PROCARDIA XL) 30 mg 24 hr tablet take 1 tablet by mouth every day Amoxicillin 500 mg tablet Take 4 tablets by mouth as directed. Take 2g Amoxicillin 1 hr prior to dental procedure. tacrolimus IR (PROGRAF) 0.5 mg capsule Take 1 capsule by mouth two times a day. Take with the 1 mg capsules for a total of 2.5 mg bid tacrolimus IR (PROGRAF) 1 mg capsule Take 2 capsules by mouth two times a day. pantoprazole DR (PROTONIX) 40 mg tablet Take 1 tablet by mouth once daily. evolocumab 140 mg/mL subcutaneous pen injector (REPATHA SURECLICK) Inject 140 mg subcutaneously every 2 weeks. lactobacillus rhamnosus (CULTURELLE) 10 billion cell capsule Take 1 capsule by mouth once daily. mycophenolate mofetil (CELLCEPT) 250 mg capsule Take 2 capsules by mouth two times a day. aspirin 81 mg chewable tablet Chew and swallow 1 tablet by mouth once daily. No current facility-administered medications for this visit. Vitals: BP 127/79 Pulse 66 Temp (Src) 97.7 (Temporal) Resp 14 Ht 5' 7.795 (1.72m) Wt 197 lb 8.5 oz (89.6kg) SpO2 98% BMI 30.22 kg/(m^2). PHYSICAL EXAMINATION: General appearance: Well appearing, alert, in no acute distress, well-hydrated, well nourished. Skin: skin color, texture, turgor normal, no rashes or lesions Head: normal Abdomen: soft, ND, NT-.. Extremities: Extremities normal. No deformities, edema, or skin discoloration. Good capillary refill. Neuro: Negative. ASSESSMENT: Mr. Sosa is a 73 y/o male s/p OLT (DBD) for DURANT Cirrhosis. He presents to clinic today for his 6 mo post transplant follow up. He feels good and is doing very well, he did not have any concerns to address today relating to his liver. He has gained some weight recently and I cautioned him re; DURANT hx and rapid weight gain. He will plan to restrict his diet a bit more and start to do some exercising. PLAN: - Labs reviewed, liver and kidney function are stable - IS Tacrolimus 2.5mg bid--> 2 mg bid, MMF 500 mg bid (plan to stop MMF in the next few mo.) - Inguinal hernia seems to have improved post txp with ascites being gone. - He is following with Dr. Goldberg from Cardiology for hx. of CAD/HTN (very mild reese leticia on exam (1+) - upcoming Derm follow up for a spot at the back of his neck/ear where CPAP mask rests. - RTC in 6 mo. Abisai Mcclelland APRN.JOYCELYN documented in this encounter [facility] 10-01-2023 History of Presen t illness Narrative Images from the original note were not included. [facility] Cardiology ([address]) [address] [place] [address] OUTPATIENT VISIT DATE 10/01/2023 PRIMARY CARE PHYSICIAN: Willem Madsen [address] [place] [address] REFERRING PHYSICIAN: Willem Madsen [address] [facility] [address] HISTORY OF PRESENT ILLNESS: Mr. Sosa is a 73 year old gentleman with a history of coronary artery disease and prior stenting of the LAD and diagonal branch in 2017, chronic diastolic heart failure with likely right heart failure due to nonalcoholic steatohepatitis, liver transplant March 2023, hypertension, dyslipidemia who presents for routine follow-up. Patient has noticed weight gain over the past 1 month. He thinks he has gained about 15 pounds. He does admit to dietary indiscretion with sodium intake. He has had some lower extremity edema but no symptoms consistent with PND or orthopnea. He denies symptoms of chest pain or pressure. His functional capacity has remained adequate. He denies palpitations, lightheadedness, dizziness, or syncope. PAST CARDIAC HISTORY: EF 61%, normal biventricular size/function, RVSP normal, no valvular disease, no PFO. RBBB, SR with SA, 1st degree AVB Large right pleural effusion, pending thoracentesis CAD with PCI x2 history (mLAD and Diag in 2017), scattered cor calcifications on non-con CT chest. Cath completed; patent stents, D1 large caliber vessel with a 90% focal stenosis off the first branch of the D1. LCX without concern. RCA with mild 30% focal stenosis. HLD, statin averse reaction (itching), on Praluent, LDL 83mg/dL VANESSA DURANT cirrhosis, ascites, s/p TIPS, thrombocytopenia, portal HTN, grade I EV in 2019. Dyspnea with hypoxemia on supplemental oxygen in setting of pleural effusion, improved symptoms post prior thoracentesis. CKD 3 Hx. PAST MEDICAL HISTORY Diagnosis Date Abnormal LFTs (liver function tests) 06/27/2013 F/U [facility] Arthritis Ascites Asthma Bladder neck obstruction 05/26/2009 BPH with obstruction/lower urinary tract symptoms BPH with obstruction/lower urinary tract symptoms 08/24/2008 Chronic diastolic congestive heart failure (HCC) 04/16/2023 Chronic prostatitis 05/26/2009 CKD (chronic kidney disease) Coronary artery disease Elevated prostate specific antigen (PSA) 07/19/2007 Esophageal reflux 1998 admitted for chest pain Esophageal varices (HCC) Essential hypertension 04/02/2009 Former cigar smoker Hepatic fibrosis (HCC) on elastography 02/09/2018 Dr. Kelby Suarez. 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 Pleural effusion associated with hepatic disorder PMH - PAST MEDICAL HISTORY OF 1998 shingles without rash Portal vein thrombosis RBBB (right bundle branch block) 03/30/2009 Right inguinal hernia 10/03/2022 Skin cancer nose, face, ears Snoring Splenomegaly Stented coronary artery 07/18/2017 MICHELLE to diagonal and mid LAD. Tubular adenoma of colon 02/08/2017 Umbilical hernia 01/08/2014 Unspecified essential hypertension 04/02/2009 Urethral stricture 09/20/2022 PAST SURGICAL HISTORY Procedure Laterality Date CC CORONARY STENT 07/18/2017 MICHELLE x 2 to mild LAD and diagonal COLONOSCOPY FLX DX W/COLLJ SPEC WHEN PFRMD 02/08/2017 Colonoscopy COLONOSCOPY FLX DX W/COLLJ SPEC WHEN PFRMD 01/07/2020 Colonoscopy CYSTOSCOPY 10/12/2020 EGD 02/01/2021 EGD 01/05/2022 ESOPHAGOGASTRODUODENOSCOPY TRANSORAL DIAGNOSTIC 01/07/2020 EGD INSERT HEPATIC SHUNT (TIPS) 09/20/2022 Transjugular Intrahepatic Portosystemic Shunt LEFT HEART CATH,PERCUTANEOUS 01/08/2023 PARACENTESIS PAST SURGICAL HISTORY OF 03/31/2023 Orthoptic Liver Transplant [facility] PROSTATE NEEDLE BIOPSY 05/19/2009 PROSTATE NEEDLE BIOPSY 01/02/2013 PROSTATECTOMY SUPRAPUBIC SUBTOTAL 1/2 STAGES 08/08/2021 + Umbilical hernia repair REMV CATARACT EXTRACAP,INSERT LENS 10/18/2020 10/04/20, 10/18/20 SOCIAL HISTORY Social History Tobacco Use Smoking status: Former Types: Cigars Smokeless tobacco: Never Tobacco comments: Last cigar 07/17/2017 Vaping Use Vaping Use: Never used Substance Use Topics Alcohol use: Not Currently Alcohol/week: 2.3 standard drinks of alcohol Types: 1 Glasses of Wine (5oz), 1 Mixed Drinks per week Comment: may have a drink once per month Drug use: No FAMILY HISTORY Problem Relation Age of Onset Arthritis Mother Heart Mother Pacemaker Stroke Mother w/ bowel obstruction Cancer Mother skin Heart Father Pacemaker Cancer Father skin Lipids Brother Arrhythmia Brother Atrial fib. Lipids Brother Anesthesia Problems No Family History ALLERGIES: ALLERGIES Allergen Reactions Cuhtnaa-Dzv-Feg Red* Itching MEDICATIONS: cholecalciferol, vitamin D3, (VITAMIN D3 ORAL) Take by mouth once daily. sulfamethoxazole-trimethoprim (BACTRIM DS) 800-160 mg per tablet Take 1 tablet by mouth every Sunday, Sunday, and Sunday. NIFEdipine ER (PROCARDIA XL) 30 mg 24 hr tablet take 1 tablet by mouth every day Amoxicillin 500 mg tablet Take 4 tablets by mouth as directed. Take 2g Amoxicillin 1 hr prior to dental procedure. tacrolimus IR (PROGRAF) 0.5 mg capsule Take 1 capsule by mouth two times a day. Take with the 1 mg capsules for a total of 2.5 mg bid tacrolimus IR (PROGRAF) 1 mg capsule Take 2 capsules by mouth two times a day. pantoprazole DR (PROTONIX) 40 mg tablet Take 1 tablet by mouth once daily. evolocumab 140 mg/mL subcutaneous pen injector (REPATHA SURECLICK) Inject 140 mg subcutaneously every 2 weeks. lactobacillus rhamnosus (CULTURELLE) 10 billion cell capsule Take 1 capsule by mouth once daily. mycophenolate mofetil (CELLCEPT) 250 mg capsule Take 2 capsules by mouth two times a day. aspirin 81 mg chewable tablet Chew and swallow 1 tablet by mouth once daily. REVIEW OF SYSTEMS: Review of Systems Constitutional: Negative for chills, fever, malaise/fatigue and weight loss. HENT: Negative for hearing loss and sore throat. Eyes: Negative for blurred vision and double vision. Respiratory: Negative. Cardiovascular: Negative. Gastrointestinal: Negative. Genitourinary: Negative for dysuria, frequency, hematuria and urgency. Musculoskeletal: Negative. Skin: Negative. Neurological: Negative for dizziness, seizures, loss of consciousness, weakness and headaches. Endo/Heme/Allergies: Negative for environmental allergies. Does not bruise/bleed easily. Psychiatric/Behavioral: Negative for depression. PHYSICAL EXAMINATION: BP 132/74 Pulse 73 Wt 201 lb (91.2kg) SpO2 98% General: Pleasant gentleman sitting comfortable no apparent distress he is alert and oriented x3 HEENT: Carotid upstrokes are brisk without bruits no JVD appreciated. Pulmonary: Lungs are clear no rales, wheezes, rhonchi Cardiovascular: Normal S1, S2 with regular rate and rhythm. No murmurs, rubs, or gallops Extremities: Warm, well-perfused, 1+ pitting edema of the lower extremities bilaterally. CARDIOVASCULAR MEDICINE TESTING: Cardiac Catheterization 01/08/2023 Impression: 1. The mid LAD and first diagonal branch stents are patent. There is a branch off the first diagonal with severe (90%) focal stenosis making this a higher risk procedure. 2. The RCA has mild diffuse diease. LMT: _ The LMT is normal. Additional Comment: The LMT is a large caliber vessel. LAD: _ The 1st diagonal LAD is narrowed 90 % - focal disease. Additional Comment: The LAD is a large caliber vessel that wraps around the apex. The mid LAD and diagonal branch stents are patent. The first diagonal is a large caliber vessel. There is a branch proximally off the first diagonal with severe (90%) focal stenosis. There is a small second diagonal branch. LCX: _ The Circumflex is normal. Additional Comment: The LCx is a large caliber vessel. There is a moderate caliber OM1 and a large caliber OM2. No significant stenosis. RCA: _ The mid RCA is narrowed 30 % - focal disease. Additional Comment: The RCA is a large caliber vessel. There is diffuse mild disease. The mid RCA has mild (30%) focal stenosis. Echocardiogram 04/06/2023: - The left ventricle is normal in size. Left ventricular systolic function is normal. EF = 61 5% (2D biplane) Left ventricular diastolic function was not evaluated due to an arrhythmia. There is bsjc-mm-ifcy variability due to frequent PACs. - The right ventricle is normal in size. Right ventricular systolic function is normal. - Estimated right ventricular systolic pressure is likely underestimated due to a weak or incomplete tricuspid regurgitation signal and is, at least, 22 mmHg consistent with normal pulmonary artery pressures. Estimated right atrial pressure is 8 mmHg based on IVC assessment. - There are no significant valvular abnormalities. - Exam was compared with the prior echocardiographic exam performed on 06/19/2022. Similar findings. IMPRESSION: Mr. Sosa is a 73 year old gentleman with a history of coronary artery disease and prior coronary intervention 2017 with stenting of the LAD and diagonal branch. He had liver transplantation March 2023 due to DURANT cirrhosis. He is also treated for hypertension and dyslipidemia. He presents the office to for routine follow-up PLAN AND RECOMMENDATIONS: 1. Coronary artery 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 artery of [place] heart without angina pectoris - ICD9: 414.01, ICD10: I25.10 (primary diagnosis) Patient doing well without symptoms concerning for angina. Continue current therapy and risk factor modification 2. Chronic diastolic congestive heart failure (HCC) - ICD9: 428.32, 428.0, ICD10: I50.32 Advised on using Lasix once a day as needed for weight gain greater than 3 to 4 pounds. Due to his rapid weight gain I have recommended that he take Lasix daily for the next 3 days. Plan to repeat a BMP and BNP with his blood work on Sunday. - NT PRO BNP - BASIC METABOLIC PANEL - FUROSEMIDE 20 MG TABLET 3. Primary hypertension - ICD9: 401.9, ICD10: I10 Well-controlled on current regimen 4. Mixed hyperlipidemia - ICD9: 272.2, ICD10: E78.2 Patient maintained on Repatha. Recent fasting blood work was reviewed. LDL cholesterol 42 mg/dL. Continue current regimen Demetrius Goldberg MD documented in this encounter [facility] 09-12-2023 Miscellaneous Notes Patient's request for medication is as follows: Requested Prescriptions Pending Prescriptions Disp Refills sulfamethoxazole-trimethoprim (BACTRIM DS) 800-160 mg per tablet 12 tablet 2 Sig: Take 1 tablet by mouth every Sunday, Sunday, and Sunday. Please approve the above prescription(s) to electronically send to pharmacy. Pily Glass RN Patient requests refill of: Requested Prescriptions Pending Prescriptions Disp Refills sulfamethoxazole-trimethoprim (BACTRIM DS) 800-160 mg per tablet 12 tablet 2 Sig: Take 1 tablet by mouth every Sunday, Sunday, and Sunday. If approved, please e-script the attached order to [facility]. Thank you, Hussein Tipton [facility] [phone] documented in this encounter [facility] 08-30-2023 History of Presen t illness Narrative [facility] Telephonic Outreach Provider Action/FYI Contacted for: Routine Telephonic Outreach Contact made with patient: Yes Patient identified by name and date of . Discussed care with patient Are you experiencing any new or worsening symptoms you need to talk about today? No Disease Specific Based on paper products supervisor, the following disposition is advised: No symptoms or symptoms present, not severe. Routed to: No Action Needed NILSON Education Provided this Outreach: No -denies any concerns -continues to work with transplant team to manage post liver transplant Florence Baez RN August 30, 2023 documented in this encounter [facility] 08-21-2023 Miscellaneous Notes Provided fax number for them to send the form for medical clearance. Pily Glass RN Sharmaine from [facility] would like a call back to get a dental clearance for patient. documented in this encounter [facility] 08-13-2023 History of Presen t illness Narrative This note was created using Tauntrter. Subjective Jesus Sosa is a 73 year old male. He was doing much better s/p liver transplant . Edema and CHF were controlled. He was restarted on nifedipine for hypertension. Review of Systems Constitutional: Negative for fatigue, fever and unexpected weight change. Respiratory: Negative for cough and shortness of breath. Cardiovascular: Positive for leg swelling. Negative for chest pain and palpitations. Gastrointestinal: Negative for abdominal pain, constipation, diarrhea, nausea and vomiting. Neurological: Negative for dizziness and headaches. ACTIVE PROBLEM LIST Mixed Hyperlipidemia Stented Coronary Artery Coronary Arteriosclerosis in [place] Artery Obesity, Class I, Bmi 30-34.9 Ckd (Chronic Kidney Disease) Stage 3, Gfr 30-59 Ml/Min (Hcc) Vanessa (Obstructive Sleep Apnea) Umbilical Hernia Nonalcoholic Fatty Liver Disease Without Nonalcoholic Steatohepatitis (Durant) Vitamin D Deficiency H/O Prostatectomy Urethral Stricture Platelets Decreased (Hcc) Liver Transplant Recipient (Hcc) Immunosuppression (Hcc) Hyperkalemia Bradycardia Nicotine use disorder, F17.2 Chronic Diastolic Congestive Heart Failure (Hcc) Unilateral Inguinal Hernia Social History Tobacco Use Smoking status: Former Types: Cigars Smokeless tobacco: Never Tobacco comments: Last cigar 07/17/2017 Vaping Use Vaping Use: Never used Substance Use Topics Alcohol use: Not Currently Alcohol/week: 2.3 standard drinks of alcohol Types: 1 Glasses of Wine (5oz), 1 Mixed Drinks per week Comment: may have a drink once per month Drug use: No Current Outpatient Medications Medication Sig Amoxicillin 500 mg tablet Take 4 tablets by mouth as directed. Take 2g Amoxicillin 1 hr prior to dental procedure. tacrolimus IR (PROGRAF) 0.5 mg capsule Take 1 capsule by mouth two times a day. Take with the 1 mg capsules for a total of 2.5 mg bid tacrolimus IR (PROGRAF) 1 mg capsule Take 2 capsules by mouth two times a day. sulfamethoxazole-trimethoprim (BACTRIM DS) 800-160 mg per tablet Take 1 tablet by mouth every Sunday, Sunday, and Sunday. pantoprazole DR (PROTONIX) 40 mg tablet Take 1 tablet by mouth once daily. evolocumab 140 mg/mL subcutaneous pen injector (REPATHA [employer] Energy[employer]) Inject 140 mg subcutaneously every 2 weeks. NIFEdipine ER (PROCARDIA XL) 30 mg 24 hr tablet Take 1 tablet by mouth once daily. lactobacillus rhamnosus (CULTURELLE) 10 billion cell capsule Take 1 capsule by mouth once daily. mycophenolate mofetil (CELLCEPT) 250 mg capsule Take 2 capsules by mouth two times a day. aspirin 81 mg chewable tablet Chew and swallow 1 tablet by mouth once daily. No current facility-administered medications for this visit. Objective BP 124/73 (BP Site: Left Arm, BP Position: Sitting, BP Cuff Size: Large Adult) Pulse 70 Temp 36.8 C (98.2 F) (Temporal) Resp 20 Wt 86.2 kg (190 lb) BMI 28.47 kg/m Physical Exam Constitutional: General: He is not in acute distress. Appearance: He is not ill-appearing. Eyes: General: No scleral icterus. Conjunctiva/sclera: Conjunctivae normal. Cardiovascular: Rate and Rhythm: Normal rate and regular rhythm. Heart sounds: No murmur heard. No gallop. Pulmonary: Effort: No respiratory distress. Breath sounds: No wheezing. Abdominal: General: There is no distension. Palpations: Abdomen is soft. Tenderness: There is no abdominal tenderness. Musculoskeletal: Right lower leg: No edema. Left lower leg: No edema. Neurological: Mental Status: He is alert. Gait: Gait normal. Assessment and Plan 1. Liver transplant recipient (HCC) - ICD9: V42.7, ICD10: Z94.4 (primary diagnosis) Continue per transplant team. 2. Chronic diastolic congestive heart failure (HCC) - ICD9: 428.32, 428.0, ICD10: I50.32 Compensated. 3. Coronary arteriosclerosis in [place] artery - ICD9: 414.01, ICD10: I25.10 Stable. 4. Primary hypertension - ICD9: 401.9, ICD10: I10 - Controlled - Continue current medications Problem list updated. He will clarify vaccinations with transplant clinic. Willem Madsen MD documented in this encounter [facility] 08-13-2023 Miscellaneous Notes Jesus Tiny Sosa is going to the dentist and the dentist wants him premedicated but they will not provide the first dose. Will have EMISSIONS TECHNICIAN file orders for first time post txp and then dentist will then provide going forward. Requested Prescriptions Pending Prescriptions Disp Refills Amoxicillin 500 mg tablet 4 tablet 1 Sig: Take 4 tablets by mouth as directed. Take 2g Amoxicillin 1 hr prior to dental procedure. Please review and advise. Pily Glass RN documented in this encounter [facility] 08-02-2023 Miscellaneous Notes Patient's request for medication is as follows: Requested Prescriptions Pending Prescriptions Disp Refills tacrolimus IR (PROGRAF) 0.5 mg capsule 60 capsule 3 Sig: Take 1 capsule by mouth two times a day. Take with the 1 mg capsules for a total of 2.5 mg bid tacrolimus IR (PROGRAF) 1 mg capsule 120 capsule 11 Sig: Take 2 capsules by mouth two times a day. Please approve the above prescription(s) to electronically send to pharmacy. Pily Glass RN documented in this encounter [facility] 07-05-2023 Miscellaneous Notes Received a call from patient who indicated he saw the Transplant physician yesterday who indicated they were approving Dr. Goldberg being able to prescribe diuretics. Patient indicated he had a prescription from Workers Compensation Claims Specialist for spironolactone 50 mg and furosemide 20 mg from a past office visit. Patient is asking if you are ok with him starting either one of these medications? Colleen Molina RN documented in this encounter [facility] 05-24-2023 Miscellaneous Notes Patient's request for medication is as follows: Requested Prescriptions Refused Prescriptions Disp Refills alirocumab (PRALUENT PEN) 75 mg/mL pen [Pharmacy Med Name: PRALUENT 75 MG/ML PEN] 0 Refused By: FLORENCE URRUTIA Reason for Refusal: A Refill not appropriate Script for Repatha sent to pharmacy 05/23/2023. Prescription(s) as above. Please process accordingly. Florence Urrutia LPN documented in this encounter [facility] 05-14-2023 History of Presen t illness Narrative [facility] Telephonic Outreach Provider Action/FYI Every 2 months Contacted for: Routine Telephonic Outreach Contact made with patient: Yes Patient identified by name and date of . Discussed care with patient Are you experiencing any new or worsening symptoms you need to talk about today? No Disease Specific Do you have new or worsening shortness of breath with activity? No Do you feel like you are dehydrated for any reason, including not being able to eat or drink normally, or having less urine/much darker urine than normal for you? No Do you check your daily weight at home? Yes, Have you noticed a sudden gain in weight greater than three pounds in a day or three pounds in a week? No Based on paper products supervisor, the following disposition is advised: No symptoms or symptoms present, not severe. Routed to: No Action Needed NILSON Education Provided this Outreach: No -patient extremely happy to share that he had his liver transplant and is doing well, much better in fact post op than he had anticipated -he has at this time also completed home care without concerns -happy as well that he is going to be able to enjoy holiday season this year with his family -denies any current concerns or refill needs as he is working very closely with transplant team at this time Florence Baez RN May 14, 2023 documented in this encounter [facility] 05-04-2023 Miscellaneous Notes Reviewed labs below: CMP: Glucose 120 05/02/2023 BUN 33 05/02/2023 Creatinine 1.62 05/02/2023 Sodium 135 05/02/2023 Potassium 4.5 05/02/2023 Chloride 103 05/02/2023 CO2 25 05/02/2023 Protein, Total 6.2 05/02/2023 Albumin 4.1 05/02/2023 Calcium 8.9 05/02/2023 Alkaline Phosphatase 60 05/02/2023 Bilirubin, Total 0.4 05/02/2023 AST 10 05/02/2023 ALT <5 05/02/2023 Discussed with EMISSIONS TECHNICIAN and plan is to drop to 3 mg BID and repeat labs on Sunday, new FK goal 8-10. Notified Jesus Sosa and will do as instructed. Verbalized understanding and will continue to increase fluids as well. The following medications were verbally by Destiny Lobato CNP. 05/04/2023 at 10:28 AM. Requested Prescriptions Pending Prescriptions Disp Refills tacrolimus IR (PROGRAF) 1 mg capsule 240 capsule 2 Sig: Take 3 capsules by mouth two times a day. Pily Glass RN documented in this encounter [facility] 05-01-2023 Miscellaneous Notes SITUATION: Assisted agency discharge visit completed today. spouse also present during today's visit. patient and caregiver reports the following: Allergies--reviewed Medications--reviewed current medications Falls--None BACKGROUND: Reason for Home Care: s/p transplant ASSESSMENT: SN greeted at door by caregiver. Upon entrance patient found in chair Patient appears in no acute distress. Vitals (see flow sheet for details): stable SN findings today: Pt present today in his home he is ambulating unassisted. He has progressed well towards his nursing goals. He expresses he has an understanding of his continued care regarding his transplant including labs as directed taking med's as directed ability to identify possible transplant rejection and when to contact the transplant team. Pt expresses a desire for discharge from Home care today. he has been given his discharge instructions and express understanding. See intervention summary for education details and any skills performed. Specific SN discharge instructions: continue with post transplant care, including labs and med's as directed, follow up visits and post transplant monitoring and reporting any changes to transplant team. Patient encouraged to take all medication as ordered, eat a well-balanced diet and follow up with all physician appointments. NOMNC: signed and present on EMR Discharged due to no further SN skilled need. Patient discharged from Home Care to: self-care, family support and chronic care clinic RECOMMENDATION: Additional follow ups recommended: None Patient to follow up with Dr. Madsen for additional medical questions/concerns. documented in this encounter [facility] 04-27-2023 History of Presen t illness Narrative [facility] labs ordered for lab draw Sunday04-30-23 patient notified. documented in this encounter [facility] 04-26-2023 Miscellaneous Notes SITUATION: Assisted routine visit completed today. spouse also present during today's visit. patient reports the following: Allergies--reviewed Medications--reviewed current medications Falls--None DME-NONE BACKGROUND: Reason for Home Care: s/p transplant ASSESSMENT: SN greeted at door by patient no DME and demonstrates stable gait. Patient appears in no acute distress. Vitals (see flow sheet for details): stable SN findings today: Pt presents today in his home, he is prgressing well towards his discharge. He expresses an understanding of his incision care and follow up labs and appointments with the transplant team. he expresses he with no changes pt should be ready for discharge next visit. Non coverage letter signed this visit See intervention summary for education details. Patient demonstrated a need for further skilled SN services for chronic disease management & education, medication education, wound/skin care and labs. 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 [place] score: LENI Lobato APRN.CNP April 25, 2023 documented in this encounter [facility] 04-25-2023 Instructions Pily Glass RN - 04/25/2023 4:05 PM EST [place] removed and steri strips placed, assess for S/S of infection, (fever, drainage, smell, redness) No changes to immune suppression Labs 1 x per week Follow up in 4 weeks at two months post Healthy choices Increase activity Call the office at [phone] / [phone] DIABETES, HYPERTENSION and HYPERLIPIDEMIA AFTER LIVER TRANSPLANTATION: ALL Liver transplant recipients should be screened for diabetes and hyperlipidemia annually. Blood Pressure should be monitored routinely as well with a goal of 130/80 mmHg SKIN HEALTH AFTER LIVER TRANSPLANTATION: ALL Liver transplant recipients should avoid excessive sun exposure and use a sun block with a sun protection factor of at least 15 and protective clothing (Shoes, socks, long-sleeve shirts, and long pants). ALL Liver transplant recipients should examine their skin on a regular basis and report any suspicious or concerning lesions to their physicians or transplant coordinators. In addition all liver transplant recipients should have formal skin examinations by a senior data integration developer annually. Should you notice a new lesion, or would like to have your annual skin check performed by Dermatology you may schedule an appointment by calling [phone]. BONE HEALTH AFTER LIVER TRANSPLANTATION: ALL Liver transplant recipients should undergo Bone Density every year for those with abnormal bone density and every 2-3 years for those with normal bone density. You may schedule an appointment at the [facility] by calling [phone]. To help promote bone health you should take oral over the counter Calcium and Vitamin D daily. CANCER PREVENTION AFTER LIVER TRANSPLANTATION: ALL Liver transplant recipients should undergo screening colonoscopy at interval determined by their physicians. You may schedule an appointment for colonoscopy at the [facility] by calling [phone]. Female liver transplant recipients older than 40 years should undergo mammogram once a year to screen for breast cancer. You may schedule an appointment for mammogram by calling [phone]. Female liver transplant recipients should undergo a PAP SMEAR to screen for cervical cancer at intervals determined by their physicians (usually every 1-3 year). To schedule a PAP SMEAR, please contact your primary care physician or pin ball machine mechanic. IMMUNIZATION AFTER LIVER TRANSPLANTATION: ALL Liver transplant recipients should receive an annual influenza vaccination (the killed vaccine rather than the live virus vaccine) as well as the pneumococcal vaccine every 3-5 years. Liver transplant recipients SHOULD NOT receive any form of a live vaccine at any time. Travel by liver transplant recipients, especially to developing countries, should be reviewed with Dr. Sd Otto from the Travel Clinic at the [facility]. Appointment can be scheduled at [phone] at least two months before departure to determine optimal strategies for the reduction of travel-related risks. SMOKING AND ALCOHOL AFTER LIVER TRANSPLANTATION: ALL Liver transplant recipients are strongly encouraged to avoid the use of tobacco including smoking, chewing and snuff. Liver transplant recipients should also remain abstinent from all alcohol. WEIGHT GAIN AFTER LIVER TRANSPLANTATION: ALL Liver transplant recipients who gain substantial weight should undergo dietary counseling to avoid obesity. You may schedule an appointment with dance coach at the [facility] by calling [phone]. AFTER LIVER TRANSPLANTATION: For female liver transplant recipients of a child-bearing age, counseling about contraception and the risks and outcomes of is reinforced with the transplant team. GENERAL HEALTH MEASURES AFTER LIVER TRANSPLANTATION: Frequent hand-washing is advisable to reduce the risk of infection. During periods of maximal immunosuppression, liver transplant recipients should avoid crowds to minimize exposures to respiratory illnesses. Working in high-risk areas, such as construction, animal care settings, gardening, landscaping, and farming, should be reviewed with the transplant team to develop appropriate strategies for the prevention of high-risk exposures. Liver transplant recipients should avoid un-pasteurized milk products and raw and undercooked eggs and meats (particularly uncooked pork, poultry, fish, and seafood. Liver transplant recipients should avoid the consumption of water from lakes and haines Liver transplant recipients should take precautions to prevent vector (including mosquito) -borne diseases. These include avoiding going out during peak mosquito feeding times (marialuisa and dusk) and using N, J-arakjwc-sqrn-toluamide (NNDT)-containing insect repellents. Shoes, socks, long-sleeve shirts, and long pants should be worn for activities that will involve soil exposure and tick exposure and also to avoid unnecessary sun exposure. Pily Glass RN documented in this encounter [facility] 04-25-2023 History of Presen t illness Narrative s/p RUA-GZZ-fhcbtlkjs (portal vein to portal vein, dCHA-spA to rGDA-EMMANUEL, duct to duct interrupted, ligation of portomesenteric shunt) for DURANT cirrhosis 03/31-04/01/23 Due to elevated elevated resistive indices in the hepatic arteries, patient was on Octreotide infusion 04/01/23-04/03/23. Liver vascular ultrasound on 04/04/23 demonstrated patent hepatic vasculature with improved resistive indices. The patient is here for removal of fabi after transplant and adjustment of IS. The patient is doing fine and feeling well. Labs are stable with normal LFts and creatinine of 1.2 Tac level has been stable at 8-11 no change We removed fabi and steri strips applied. The patient is to come back in 2-3 weeks for further evaluation Labs twice weekly Dex Oneill Jesus Sosa here for routine follow up for staple removal. Dr Oneill in to see and assess incision. Incision well healed and plan to remove fabi and sutures. Staple and sutures removed per protocol, steri strips in place. documented in this encounter [facility] 04-19-2023 History of Presen t illness Narrative Images from the original note were not included. Patient Name: Jesus Sosa Date of Service: April 19, 2023 Jesus Sosa is a 73 yo male with a h/o DURANT cirrhosis s/p DBD OLT on 03/31/23. Currently patient is doing well. He has an inguinal hernia that's reducible. Not particularly symptomatic from that. PHYSICAL EXAMINATION BP 142/80 Pulse 70 Temp (Src) 98 (Temporal) Resp 16 Ht 5' 8.5 (1.74m) Wt 180 lb (81.6kg) SpO2 99% BMI 26.97 kg/(m^2). Gen: alert, cooperative, not jaundice, NAD CV: RRR Resp: Unlabored on RA Abd: soft, no ascites, ND, NT, incision well healed, direct inguinal hernia reducible Ext: warm, no edema Medications: Current Outpatient Medications on File Prior to Visit Medication Sig lactobacillus rhamnosus (CULTURELLE) 10 billion cell capsule Take 1 capsule by mouth once daily. mycophenolate mofetil (CELLCEPT) 250 mg capsule Take 2 capsules by mouth two times a day. aspirin 81 mg chewable tablet Chew and swallow 1 tablet by mouth once daily. acyclovir (ZOVIRAX) 400 mg tablet Take 1 tablet by mouth two times a day. nystatin (MYCOSTATIN) 100,000 units/mL oral liquid Shake well and take 5 mL by mouth four times daily for 63 doses. Swish and swallow. pantoprazole DR (PROTONIX) 40 mg tablet Take 1 tablet by mouth once daily. sulfamethoxazole-trimethoprim (BACTRIM DS) 800-160 mg per tablet Take 1 tablet by mouth every Sunday, Sunday, and Sunday. tacrolimus IR (PROGRAF) 1 mg capsule Take 4 capsules by mouth two times a day. predniSONE (DELTASONE) 5 mg tablet Take 4 tablets by mouth once daily on 04/08-04/09, then take 3 tabs daily on 04/10-04/13, then take 2 tabs daily on 04/14-04/17, then take 1 tab daily on 04/18-04/21/23 ergocalciferol 50,000 unit capsule (VITAMIN D2, DRISDOL) Take 1 capsule by mouth one time a week for 12 doses. No current facility-administered medications on file prior to visit. LABORATORY RESULTS: WBC 5.23 04/19/2023 Hemoglobin 11.3 04/19/2023 Hematocrit 33.8 04/19/2023 Platelet Count 176 04/19/2023 Glucose 96 04/19/2023 BUN 24 04/19/2023 Creatinine 1.24 04/19/2023 Sodium 135 04/19/2023 Potassium 4.7 04/19/2023 Chloride 103 04/19/2023 CO2 26 04/19/2023 Albumin 3.5 04/19/2023 Calcium 8.4 04/19/2023 Alkaline Phosphatase 47 04/19/2023 Bilirubin, Total 0.4 04/19/2023 AST 8 04/19/2023 ALT 7 04/19/2023 ASSESSMENT/PLAN: Jesus Sosa is a 73 yo male with a h/o DURANT cirrhosis s/p DBD OLT on 03/31/23. Currently patient is doing well. He has an inguinal hernia that's reducible. Not particularly symptomatic from that. Impression: Status post liver transplant. Doing well. No changes to immune suppression Labs 2 x week Follow up in 1 week for staple removal Healthy choices and increase activity Consult to General surgery in the future if needed for hernia repair, not indicated at this time RTC in one week Marco Short MD April 19, 2023 1:36 PM documented in this encounter [facility] 04-18-2023 Instructions Pily Glass RN - 04/18/2023 2:21 PM EST No changes to immune suppression Labs 2 x week Follow up in 1 week for staple removal Healthy choices and increase activity Consult to General surgery in the future if needed for hernia repair, not indicated at this time Drink plenty of fluids 64 oz per day Call the office at [phone] / [place] [phone] DIABETES, HYPERTENSION and HYPERLIPIDEMIA AFTER LIVER TRANSPLANTATION: ALL Liver transplant recipients should be screened for diabetes and hyperlipidemia annually. Blood Pressure should be monitored routinely as well with a goal of 130/80 mmHg SKIN HEALTH AFTER LIVER TRANSPLANTATION: ALL Liver transplant recipients should avoid excessive sun exposure and use a sun block with a sun protection factor of at least 15 and protective clothing (Shoes, socks, long-sleeve shirts, and long pants). ALL Liver transplant recipients should examine their skin on a regular basis and report any suspicious or concerning lesions to their physicians or transplant coordinators. In addition all liver transplant recipients should have formal skin examinations by a senior data integration developer annually. Should you notice a new lesion, or would like to have your annual skin check performed by Dermatology you may schedule an appointment by calling [phone]. BONE HEALTH AFTER LIVER TRANSPLANTATION: ALL Liver transplant recipients should undergo Bone Density every year for those with abnormal bone density and every 2-3 years for those with normal bone density. You may schedule an appointment at the [facility] by calling [phone]. To help promote bone health you should take oral over the counter Calcium and Vitamin D daily. CANCER PREVENTION AFTER LIVER TRANSPLANTATION: ALL Liver transplant recipients should undergo screening colonoscopy at interval determined by their physicians. You may schedule an appointment for colonoscopy at the [facility] by calling [phone]. Female liver transplant recipients older than 40 years should undergo mammogram once a year to screen for breast cancer. You may schedule an appointment for mammogram by calling [phone]. Female liver transplant recipients should undergo a PAP SMEAR to screen for cervical cancer at intervals determined by their physicians (usually every 1-3 year). To schedule a PAP SMEAR, please contact your primary care physician or pin ball machine mechanic. IMMUNIZATION AFTER LIVER TRANSPLANTATION: ALL Liver transplant recipients should receive an annual influenza vaccination (the killed vaccine rather than the live virus vaccine) as well as the pneumococcal vaccine every 3-5 years. Liver transplant recipients SHOULD NOT receive any form of a live vaccine at any time. Travel by liver transplant recipients, especially to developing countries, should be reviewed with Dr. Sd Otto from the Travel Clinic at the [facility]. Appointment can be scheduled at [phone] at least two months before departure to determine optimal strategies for the reduction of travel-related risks. SMOKING AND ALCOHOL AFTER LIVER TRANSPLANTATION: ALL Liver transplant recipients are strongly encouraged to avoid the use of tobacco including smoking, chewing and snuff. Liver transplant recipients should also remain abstinent from all alcohol. WEIGHT GAIN AFTER LIVER TRANSPLANTATION: ALL Liver transplant recipients who gain substantial weight should undergo dietary counseling to avoid obesity. You may schedule an appointment with dance coach at the [facility] by calling [phone]. AFTER LIVER TRANSPLANTATION: For female liver transplant recipients of a child-bearing age, counseling about contraception and the risks and outcomes of is reinforced with the transplant team. GENERAL HEALTH MEASURES AFTER LIVER TRANSPLANTATION: Frequent hand-washing is advisable to reduce the risk of infection. During periods of maximal immunosuppression, liver transplant recipients should avoid crowds to minimize exposures to respiratory illnesses. Working in high-risk areas, such as construction, animal care settings, gardening, landscaping, and farming, should be reviewed with the transplant team to develop appropriate strategies for the prevention of high-risk exposures. Liver transplant recipients should avoid un-pasteurized milk products and raw and undercooked eggs and meats (particularly uncooked pork, poultry, fish, and seafood. Liver transplant recipients should avoid the consumption of water from lakes and haines Liver transplant recipients should take precautions to prevent vector (including mosquito) -borne diseases. These include avoiding going out during peak mosquito feeding times (marialuisa and dusk) and using N, N-gqioznd-pwfi-toluamide (NNDT)-containing insect repellents. Shoes, socks, long-sleeve shirts, and long pants should be worn for activities that will involve soil exposure and tick exposure and also to avoid unnecessary sun exposure. Pily Glass RN documented in this encounter [facility] 04-16-2023 Instructions Demetrius Goldberg MD - 04/16/2023 10:56 AM EST We are adding the lasix to be used daily as directed documented in this encounter [facility] 04-16-2023 History of Presen t illness Narrative Images from the original note were not included. [facility] SE[facility] OF [facility]AL CARDIOLOGY Cardiology ([facility]) [address] [facility] [id number] OUTPATIENT VISIT DATE 04/13/2023 PRIMARY CARE PHYSICIAN: Willem Madsen [address] [place], [place] [id number] REFERRING PHYSICIAN: Willem Madsen [address] [facility] [address] CHIEF COMPLAINT: HISTORY OF PRESENT ILLNESS: Mr. Sosa is a 73 year old gentleman with a history of coronary artery disease and prior stenting of the LAD and diagonal branch in 2018, chronic diastolic heart failure with likely right heart failure due to nonalcoholic steatohepatitis, recent liver transplant, hypertension, dyslipidemia who presents to establish new cardiology follow-up. He reports that he has been feeling well since his transplantation which was completed in late March. He has had lower extremity swelling which is improved post transplant. He does not have symptoms of PND or orthopnea. He denies symptoms of chest pain or pressure. He has not had symptoms of palpitations, lightheadedness, dizziness, or syncope. PAST CARDIAC HISTORY: EF 61%, normal biventricular size/function, RVSP normal, no valvular disease, no PFO. RBBB, SR with SA, 1st degree AVB Large right pleural effusion, pending thoracentesis CAD with PCI x2 history (mLAD and Diag in 2018), scattered cor calcifications on non-con CT chest. Cath completed; patent stents, D1 large caliber vessel with a 90% focal stenosis off the first branch of the D1. LCX without concern. RCA with mild 30% focal stenosis. HLD, statin averse reaction (itching), on Praluent, LDL 83mg/dL VANESSA DURANT cirrhosis, ascites, s/p TIPS, thrombocytopenia, portal HTN, grade I EV in 2019. Dyspnea with hypoxemia on supplemental oxygen in setting of pleural effusion, improved symptoms post prior thoracentesis. CKD 3 Hx. PAST MEDICAL HISTORY Diagnosis Date Abnormal LFTs (liver function tests) 06/27/2013 F/U [facility] Arthritis Ascites Asthma Bladder neck obstruction 05/26/2009 BPH with obstruction/lower urinary tract symptoms BPH with obstruction/lower urinary tract symptoms 08/24/2008 Chronic prostatitis 05/26/2009 CKD (chronic kidney disease) Coronary artery disease Elevated prostate specific antigen (PSA) 07/19/2007 Esophageal reflux 1998 admitted for chest pain Esophageal varices (HCC) Essential hypertension 04/02/2009 Former cigar smoker Hepatic fibrosis (HCC) on elastography 02/09/2018 Dr. Kelby Suarez. 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 Pleural effusion associated with hepatic disorder PMH - PAST MEDICAL HISTORY OF 1998 shingles without rash Portal vein thrombosis RBBB (right bundle branch block) 03/30/2009 Right inguinal hernia 10/03/2022 Skin cancer nose, face, ears Snoring Splenomegaly Stented coronary artery 07/18/2017 MICHELLE to diagonal and mid LAD. Tubular adenoma of colon 02/08/2017 Umbilical hernia 01/08/2014 Unspecified essential hypertension 04/02/2009 PAST SURGICAL HISTORY Procedure Laterality Date CC CORONARY STENT 07/18/2017 MICHELLE x 2 to mild LAD and diagonal COLONOSCOPY FLX DX W/COLLJ SPEC WHEN PFRMD 02/08/2017 Colonoscopy COLONOSCOPY FLX DX W/COLLJ SPEC WHEN PFRMD 01/07/2020 Colonoscopy CYSTOSCOPY 10/12/2020 EGD 02/01/2021 EGD 01/05/2022 ESOPHAGOGASTRODUODENOSCOPY TRANSORAL DIAGNOSTIC 01/07/2020 EGD INSERT HEPATIC SHUNT (TIPS) 09/20/2022 Transjugular Intrahepatic Portosystemic Shunt LEFT HEART CATH,PERCUTANEOUS 01/08/2023 PARACENTESIS PAST SURGICAL HISTORY OF 03/31/2023 Liver Transplant [facility] PROSTATE NEEDLE BIOPSY 05/19/2009 PROSTATE NEEDLE BIOPSY 01/02/2013 PROSTATECTOMY SUPRAPUBIC SUBTOTAL 1/2 STAGES 08/08/2021 + Umbilical hernia repair REMV CATARACT EXTRACAP,INSERT LENS 10/18/2020 10/04/20, 10/18/20 SOCIAL HISTORY Social History Tobacco Use Smoking status: Former Types: Cigars Smokeless tobacco: Never Tobacco comments: Last cigar 07/17/2017 Vaping Use Vaping Use: Never used Substance Use Topics Alcohol use: Not Currently Alcohol/week: 5.0 standard drinks of alcohol Types: 1 Glasses of Wine (5oz), 1 Mixed Drinks per week Comment: may have a drink once per month Drug use: No FAMILY HISTORY Problem Relation Age of Onset Arthritis Mother Heart Mother Pacemaker Stroke Mother w/ bowel obstruction Cancer Mother skin Heart Father Pacemaker Cancer Father skin Lipids Brother Arrhythmia Brother Atrial fib. Lipids Brother Anesthesia Problems No Family History ALLERGIES: ALLERGIES Allergen Reactions Gwzqkph-Zhw-Ysr Red* Itching MEDICATIONS: lactobacillus rhamnosus (CULTURELLE) 10 billion cell capsule Take 1 capsule by mouth once daily. mycophenolate mofetil (CELLCEPT) 250 mg capsule Take 2 capsules by mouth two times a day. aspirin 81 mg chewable tablet Chew and swallow 1 tablet by mouth once daily. acyclovir (ZOVIRAX) 400 mg tablet Take 1 tablet by mouth two times a day. nystatin (MYCOSTATIN) 100,000 units/mL oral liquid Shake well and take 5 mL by mouth four times daily for 63 doses. Swish and swallow. pantoprazole DR (PROTONIX) 40 mg tablet Take 1 tablet by mouth once daily. sulfamethoxazole-trimethoprim (BACTRIM DS) 800-160 mg per tablet Take 1 tablet by mouth every Sunday, Sunday, and Sunday. tacrolimus IR (PROGRAF) 1 mg capsule Take 4 capsules by mouth two times a day. predniSONE (DELTASONE) 5 mg tablet Take 4 tablets by mouth once daily on 04/08-04/09, then take 3 tabs daily on 04/10-04/13, then take 2 tabs daily on 04/14-04/17, then take 1 tab daily on 04/18-04/21/23 REVIEW OF SYSTEMS: Review of Systems Constitutional: Negative for chills, fever, malaise/fatigue and weight loss. HENT: Negative for hearing loss and sore throat. Eyes: Negative for blurred vision and double vision. Respiratory: Negative. Cardiovascular: Negative. Gastrointestinal: Negative. Genitourinary: Negative for dysuria, frequency, hematuria and urgency. Musculoskeletal: Negative. Skin: Negative. Neurological: Negative for dizziness, seizures, loss of consciousness, weakness and headaches. Endo/Heme/Allergies: Negative for environmental allergies. Does not bruise/bleed easily. Psychiatric/Behavioral: Negative for depression. PHYSICAL EXAMINATION: BP 132/72 Pulse 76 Wt 187 lb (84.8kg) SpO2 96% General: Pleasant gentleman sitting comfortable no apparent distress he is alert and oriented x3 HEENT: Carotid upstrokes are brisk without bruits no JVD appreciated. Pulmonary: Lungs are clear no rales, wheezes, rhonchi Cardiovascular: Normal S1, S2 with regular rate and rhythm. No murmurs, rubs, or gallops Extremities: Warm, well-perfused, 2-3+ pitting edema of the lower extremities bilaterally. CARDIOVASCULAR MEDICINE TESTING: Cardiac Catheterization 01/08/2023 Impression: 1. The mid LAD and first diagonal branch stents are patent. There is a branch off the first diagonal with severe (90%) focal stenosis making this a higher risk procedure. 2. The RCA has mild diffuse diease. LMT: _ The LMT is normal. Additional Comment: The LMT is a large caliber vessel. LAD: _ The 1st diagonal LAD is narrowed 90 % - focal disease. Additional Comment: The LAD is a large caliber vessel that wraps around the apex. The mid LAD and diagonal branch stents are patent. The first diagonal is a large caliber vessel. There is a branch proximally off the first diagonal with severe (90%) focal stenosis. There is a small second diagonal branch. LCX: _ The Circumflex is normal. Additional Comment: The LCx is a large caliber vessel. There is a moderate caliber OM1 and a large caliber OM2. No significant stenosis. RCA: _ The mid RCA is narrowed 30 % - focal disease. Additional Comment: The RCA is a large caliber vessel. There is diffuse mild disease. The mid RCA has mild (30%) focal stenosis. Echocardiogram 04/06/2023: - The left ventricle is normal in size. Left ventricular systolic function is normal. EF = 61 5% (2D biplane) Left ventricular diastolic function was not evaluated due to an arrhythmia. There is gjmq-ey-dquf variability due to frequent PACs. - The right ventricle is normal in size. Right ventricular systolic function is normal. - Estimated right ventricular systolic pressure is likely underestimated due to a weak or incomplete tricuspid regurgitation signal and is, at least, 22 mmHg consistent with normal pulmonary artery pressures. Estimated right atrial pressure is 8 mmHg based on IVC assessment. - There are no significant valvular abnormalities. - Exam was compared with the prior echocardiographic exam performed on 06/19/2022. Similar findings. IMPRESSION: Mr. Sosa is a 73 year old gentleman with a history of coronary artery disease and prior coronary intervention 2018 with stenting of the LAD and diagonal branch. 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 He is also treated for hypertension and dyslipidemia. He presents the office to establish new cardiology follow-up. PLAN AND RECOMMENDATIONS: 1. Coronary arteriosclerosis in [place] artery - ICD9: 414.01, ICD10: I25.10 (primary diagnosis) Patient doing well without symptoms concerning for angina. I reviewed his catheterization films with him during the office visit. The latter completed in December 2022. 2. Chronic diastolic congestive heart failure (HCC) - ICD9: 428.32, 428.0, ICD10: I50.32 Patient with evidence of right heart failure. I think he may benefit from short courses of diuretics. He will clear this with his transplant team on Sunday. Have recommended Lasix 40 mg daily for 3 days as needed for weight gain greater than 3 to 4 pounds. - FUROSEMIDE 40 MG TABLET 3. Mixed hyperlipidemia - ICD9: 272.2, ICD10: E78.2 Demetrius Goldberg MD documented in this encounter [facility] 04-14-2023 Miscellaneous Notes SITUATION: friend present during today's visit. patient reports the following since the last homecare visit: medications/allergies--no changes, no fall. patient reports im doing pretty good . BACKGROUND: Diagnoses (reason for Home Care): [facility] on 03/31/23-04/07/2023 Encounter for aftercare following liver transplant ACTIVE PROBLEM LIST Mixed Hyperlipidemia Stented Coronary Artery Tubular Adenoma of Colon Coronary Arteriosclerosis in [place] Artery Obesity, Class I, Bmi 30-34.9 Ckd (Chronic Kidney Disease) Stage 3, Gfr 30-59 Ml/Min (Hcc) Vanessa (Obstructive Sleep Apnea) Umbilical Hernia Nonalcoholic Fatty Liver Disease Without Nonalcoholic Steatohepatitis (Durant) Vitamin D Deficiency Portal Hypertension With Esophageal Varices (Hcc) Durant (Nonalcoholic Steatohepatitis) Right Inguinal Hernia H/O Prostatectomy Bronchiolar Disease Other Ascites S/P Tips (Transjugular Intrahepatic Portosystemic Shunt) Pleural Effusion Associated With Hepatic Disorder Urethral Stricture Platelets Decreased (Hcc) Liver Transplant Recipient (Hcc) Post-Operative Pain Acute Postoperative Respiratory Insufficiency Acute Blood Loss Anemia Immunosuppression (Hcc) Hyperkalemia Bradycardia Nicotine use disorder, F17.2 SPECIFIC ORDERS: - Precautions/Activity Restrictions: Abdominal - Equipment Owned: Walker- Wheeled, Commode- Raised ASSESSMENT: Patient evaluated by [facility] physical therapy. Reviewed and explained homecare services. Plan of care, goals, and visit frequency developed, reviewed, and agreed upon with patient and/or caregiver. Patient Goal: get stronger Patient will benefit from continued physical therapy to address the following deficits: endurance. Current Discharge Plan:independent with home exercise program. Anticipate discharge by 04/14/23 RECOMMENDATION: No further skilled PT need at this time Pt demonstrates good understanding of techniques to improve his functional stamina See intervention summary for intervention/education details. documented in this encounter [facility] 04-13-2023 Miscellaneous Notes SITUATION: Assisted routine visit completed today. spouse also present during today's visit. patient and caregiver reports the following: Allergies--reviewed Medications--reviewed current medications Falls--None DME-NONE BACKGROUND: Reason for Home Care: s/p liver transplant ASSESSMENT: SN greeted at door by caregiver. Upon entrance patient found in chair Patient appears in no acute distress. Vitals (see flow sheet for details): stable SN findings today: Educated pt and that All medications must be taken exactly as prescribed by your transplant physician. Never stop or change any medication without first discussing it with your transplant team, MD or [facility]. Rest as needed. Slowly start to do more each day. Follow any direction on how much liquid to drink each day and which liquids are best for you. Eat a variety of healthy foods. Healthy foods include fruits, vegetables, whole-grain breads, low-fat dairy products, beans, lean meats, and fish. Avoid grapefruit, starfruit, sushi, honey infante oranges (cross between oranges and grapefruit), raw oysters of fish. Follow any dietary restrictions MD may have given you. Maintain a healthy weight. Exercise as directed. Ask about the best exercise plan for you. This may help increase your energy levels and help you feel better. Do not drink alcohol or use tobacco products. Alcohol and tobacco can harm your new liver. Antirejection medicine may decrease your ability to fight an infection. Monitor for symptoms of rejection or any complications. Symptoms may include, Fever greater than 100 , Jaundice - yellowing of the skin and eyes, Dark urine, Itching, Abdominal swelling or tenderness, Fatigue, Irritability, Headache. Educated that the symptoms of rejection may resemble other medical conditions or problems. Call MD/ [facility] or Consult your transplant team with any concerns you have. Call 911 if you suddenly feel lightheaded and short of breath, become confused, have difficulty speaking, or have a seizure. Abdominal precautions: Do not lift, push, or pull greater than 5 lbs until your surgeon clears you to. Express understanding . See intervention summary for education details. Patient demonstrated a need for further skilled SN services for chronic disease management & education, medication education and wound/skin care. Current Discharge plan: self-care and family support RECOMMENDATION: Next visit to focus on (be specific): hos is incision, pain? documented in this encounter [facility] 04-09-2023 Miscellaneous Notes SITUATION: Assisted SOC visit completed today. spouse also present during today's visit. patient reports the following: Allergies--reviewed Medications--full medication reconciliation completed Falls--None DME-Reviewed and added to chart BACKGROUND: Discharged/Referral from [facility] on [facility]23 following treatment for liver transplant. Pertinent referral information or other diagnoses that may affect plan of care: DURANT, ascites, CKD ASSESSMENT: SN greeted at door by caregiver. Upon entrance patient found ambulating to living room using WW Patient appears in no acute distress. Patient lives at home with . Home environment: clean, cluttered and has pets: 1 dog. SOC booklet reviewed & completed with patient and consent obtained for Home Care services. Patient/CG concerns verbalized today: Pt denies issues or concerns. Had labs drawn at outpatient lab this morning. Vitals (see flow sheet for details): stable SN findings today: Pt ambulated to living room using WW upon SN arrival, pleasant and cooperative for SN visit. Pt has medications well organized, denies questions regarding medications/side effects. All medications in home, pt taking as prescribed. Pt reports showering this morning with SBA - does not have DME to help with safety when bathing - plans to obtain shower chair and have grab bars installed. SN advised pt to only shower when present, he verbalized understanding. Falls risk and safety precautions reviewed as in SOC folder. Pt reports minimal pain relieved by rest and medication. 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 RLQ drain removal site with bruising, suture in place, IRENE - pt denies drainage. RLE pink/dry area IRENE - pt to apply lotion. BLE +3 edema, pt reports this has improved from baseline - SN educated pt regarding benefits of activity, elevation - he verbalized understanding. No dyspnea noted this visit, pt reported some dyspnea after showering this morning - LSCOA. Generalized weakness noted, pt reports ADLs take longer and SN educated pt to allow for rest breaks with activities. SN reviewed s/s infection and when to report - pt has media coordinator's phone number in cell phone for easy access/questions. Pt plans to have all blood work done at outpatient lab. Pt reports feeling saddened and grieving the loss of the person that he received donation from - support provided. See intervention summary for education details and skills performed. Plan of care and visit frequency established with patient and plan of care agreed upon. Patient demonstrated a need for further skilled SN services for chronic disease management & education, medication education, wound/skin care and safety. RECOMMENDATION: Visit Frequency: 2w1, 1w3 Need for additional services: Patient agreeable to PT referrals. Patient declined N/A referrals. Additional concerns to be followed up on: NONE Next visit to focus on (be specific): c.p check, assess incision, review medications, education documented in this encounter [facility] 04-05-2023 Miscellaneous Notes Welcome Home Call: a. Date and Time: 11:40 AM 04/05/2023 b. Contact name/relationship: patient c. Have you been active with any Home Care company in the last 60 days (such as help with bathing, filling medications, checking your blood pressure, or assistance with an exercise program)? No. d. [facility] will be providing your care, are you agreeable to starting these services? yes (yes or no) e. Do you have any upcoming appointments in the next few days, or restrictions to your schedule? no f. Caregiver: Patient is able to manage care independently g. Confirmed Visited Location and preferred #: Address: [address] [place] [address] h. Was patient given Flu shot this Season (After Feb,): Yes: Location: [facility] , Date received: Feb 2023 Please keep our your medications both over the counter and prescribed out for the home care to review, your hospital discharge instructions and write down any questions you might have. While we focus on providing safe care, in support of this mission, we ask you to: Be respectful of our caregivers. Do not raise your voice or use profanity. You and your family/caregivers must be considerate of our organization's staff and property. Promote a safe and respectful environment. We will not tolerate any form of threatening or aggressive behaviors towards our caregiver team. This includes verbal, physical or sexual behaviors: - Examples include acts or threats of physical violence, harassment, intimidation, abusive or foul language, or other aggressive, disruptive or discriminatory behavior. Any firearms or weapons in the home must be stored and locked in a separate room from where care is taking place. Firearms or other weapons should not be easily accessible or in plain view; when available, firearms should be stored and locked in a firearm safe. - Weapons of any kind include: firearms, knives, tasers and all other things that can inflict bodily or physical harm. Pets/animals must be moved to a separate closed room or placed in a crate/cage while caregivers are in the home. (Service animals excluded). Substance Use (illegal drugs, alcohol, cigarettes) including Medical marijuana in a vaporized or inhaled form is not permitted for use by a patient or caregiver/family member while our caregivers are in the home. Taking photos or videos of our caregivers without permission is not permitted. Our clinicians will call you the night before or the morning of the appointment. Their # may come up restricted but they'll leave a VM for you. In case you have any questions or concerns in the meantime, our # is [phone], option 5 Thank you for your time and have a great day. HELDER Donaldson documented in this encounter [facility] 04-04-2023 History of Past i llness Narrative Problem Noted Date Diagnosed Date Resolved Date Hyperkalemia 04/04/2023 08/13/2023 Last Assessment & Plan: Assessment: potassium 5.4 Plan: change to low potassium diet Follow potassium on daily CMP Post-operative pain 04/01/2023 04/25/20 Last Assessment & Plan: Assessment: - pain controlled with current regimen: Tylenol scheduled, 500 mg q 6 hours Oxycodone 5-10 mg q 3 hours prn Plan: Decrease oxycodone to 5 mg q 6 hours as needed Continue scheduled tylenol Acute postoperative respiratory insufficiency 04/01/20 23 04/25/2023 Last Assessment & Plan: Assessment: avg pulse of 95% on nasal cannula Plan: monitor respiratory status oxygen as needed encourage IS Acute blood loss anemia 04/01/2023 12/2 Last Assessment & Plan: Assessment: hgb 10.7, stable Plan: continue to monitor cbc with diff daily transfuse as needed check INR tomorrow morning S/P TIPS (transjugular intra hepatic portosystemic shunt) 09/20/2022 04/25/2023 Pleural effusion associated with hepatic disorder 09/20/2022 05/30/2023 Status post chest tube placement 09/20/2022 09/27/2022 Urinary retention 09/20/2022 09/27/2022 Urethral stricture 09/20/2022 Bronchiolar disease 09/15/2022 05/30/20 Last Assessment & Plan: Thoracentesis as needed. Other ascites 09/15/2022 05/30/2023 Last Assessment & Plan: Paracentesis as needed. Right inguinal hernia 09/04/20222022 Last Assessment & Plan: Reducible. Painful at times. Diarrhea 03/29/2022 02/07/2023 BPH associated with nocturia 08/08/2021 09/15/2022 Elevated LFTs 02/10/2020 02/07/2023 Portal hypertension with esophageal varices 02/10/2020 04/25/2023 DURANT (nonalcoholic steatohepatitis) 02/10/2020 05/30/2023 Last Assessment & Plan: S/p OLT on 04/01 -Management per primary -clear liquids -Liver ultrasound at bedside 04/02: IMPRESSION: Patent hepatic vessels with appropriately directed flow. Persistent high resistance waveforms. Normal sonographic appearance of the transplant liver. Hepatic fibrosis (HCC) on elastography 02/09/2018 02/07/2023 Overview: Dr. Kelby Suarez. GI Abnormal result of iron profile testing 07/15/2017 01/11/2022 Overview: Dr.Vincent Suarez Tubular adenoma of colon 02/08/2017 Occult GI bleeding 01/19/2017 8 Bladder mass 02/24/2016 07/07/2016 Rash 01/14/2015 04/17/2019 Abnormal LFTs (liver function tests) 06/27/2013 01/06/2021 Overview: Dr. Kelby Suarez, GI/hepatology. 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 Elevated prostate specific antigen (PSA) 07/19/2007 07/31/2017 documented as of this encounter (statuses as of 08/13/2023) [facility] History of Past illness Narrative* Problem Noted Date Diagnosed Date Resolved Date Hyperkalemia 04/04/2023 08/13/2023 Last Assessment & Plan: Assessment: potassium 5.4 Plan: change to low potassium diet Follow potassium on daily CMP Post-operative pain 04/01/2023 04/25/20 Last Assessment & Plan: Assessment: - pain controlled with current regimen: Tylenol scheduled, 500 mg q 6 hours Oxycodone 5-10 mg q 3 hours prn Plan: Decrease oxycodone to 5 mg q 6 hours as needed Continue scheduled tylenol Acute postoperative respiratory insufficiency 04/01/20 23 04/25/2023 Last Assessment & Plan: Assessment: avg pulse of 95% on nasal cannula Plan: monitor respiratory status oxygen as needed encourage IS Acute blood loss anemia 04/01/2023 12/ Last Assessment & Plan: Assessment: hgb 10.7, stable Plan: continue to monitor cbc with diff daily transfuse as needed check INR tomorrow morning S/P TIPS (transjugular intra hepatic portosystemic shunt) 09/20/2022 04/25/2023 Pleural effusion associated with hepatic disorder 09/20/2022 05/30/2023 Status post chest tube placement 09/20/2022 09/27/2022 Urinary retention 09/20/2022 09/27/2022 Urethral stricture 09/20/2022 Bronchiolar disease 09/15/2022 05/30/20 Last Assessment & Plan: Thoracentesis as needed. Other ascites 09/15/2022 05/30/2023 Last Assessment & Plan: Paracentesis as needed. Right inguinal hernia 09/04/20222022 Last Assessment & Plan: Reducible. Painful at times. Diarrhea 03/29/2022 02/07/2023 BPH associated with nocturia 08/08/2021 09/15/2022 Elevated LFTs 02/10/2020 02/07/2023 Portal hypertension with esophageal varices 02/10/2020 04/25/2023 DURANT (nonalcoholic steatohepatitis) 02/10/2020 05/30/2023 Last Assessment & Plan: S/p OLT on 04/01 -Management per primary -clear liquids -Liver ultrasound at bedside 04/02: IMPRESSION: Patent hepatic vessels with appropriately directed flow. Persistent high resistance waveforms. Normal sonographic appearance of the transplant liver. Hepatic fibrosis (HCC) on elastography 02/09/2018 02/07/2023 Overview: Dr. Kelby Suarez. GI Abnormal result of iron profile testing 07/15/2017 01/11/2022 Overview: Dr.Vincent Suarez Tubular adenoma of colon 02/08/2017 Occult GI bleeding 01/19/2017 8 Bladder mass 02/24/2016 07/07/2016 Rash 01/14/2015 04/17/2019 Abnormal LFTs (liver function tests) 06/27/2013 01/06/2021 Overview: Dr. Kelby Suarez, GI/hepatology. 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 Elevated prostate specific antigen (PSA) 07/19/2007 07/31/2017 documented as of this encounter (statuses as of 08/13/2023) [facility] History of Past illness Narrative* Problem Noted Date Diagnosed Date Resolved Date Hyperkalemia 04/04/2023 08/13/2023 Last Assessment & Plan: Assessment: potassium 5.4 Plan: change to low potassium diet Follow potassium on daily CMP Post-operative pain 04/01/2023 04/25/20 Last Assessment & Plan: Assessment: - pain controlled with current regimen: Tylenol scheduled, 500 mg q 6 hours Oxycodone 5-10 mg q 3 hours prn Plan: Decrease oxycodone to 5 mg q 6 hours as needed Continue scheduled tylenol Acute postoperative respiratory insufficiency 04/01/2004/25/2023 Last Assessment & Plan: Assessment: avg pulse of 95% on nasal cannula Plan: monitor respiratory status oxygen as needed encourage IS Acute blood loss anemia 04/01/2023 12/ Last Assessment & Plan: Assessment: hgb 10.7, stable Plan: continue to monitor cbc with diff daily transfuse as needed check INR tomorrow morning S/P TIPS (transjugular intra hepatic portosystemic shunt) 09/20/2022 04/25/2023 Pleural effusion associated with hepatic disorder 09/20/2022 05/30/2023 Status post chest tube placement 09/20/2022 09/27/2022 Urinary retention 09/20/2022 09/27/2022 Urethral stricture 09/20/2022 Bronchiolar disease 09/15/2022 05/30/20 Last Assessment & Plan: Thoracentesis as needed. Other ascites 09/15/2022 05/30/2023 Last Assessment & Plan: Paracentesis as needed. Right inguinal hernia 09/04/20222022 Last Assessment & Plan: Reducible. Painful at times. Diarrhea 03/29/2022 02/07/2023 BPH associated with nocturia 08/08/2021 09/15/2022 Elevated LFTs 02/10/2020 02/07/2023 Portal hypertension with esophageal varices 02/10/2020 04/25/2023 DURANT (nonalcoholic steatohepatitis) 02/10/2020 05/30/2023 Last Assessment & Plan: S/p OLT on 04/01 -Management per primary -clear liquids -Liver ultrasound at bedside 04/02: IMPRESSION: Patent hepatic vessels with appropriately directed flow. Persistent high resistance waveforms. Normal sonographic appearance of the transplant liver. Hepatic fibrosis (HCC) on elastography 02/09/2018 02/07/2023 Overview: Dr. Kelby Suarez. GI Abnormal result of iron profile testing 07/15/2017 01/11/2022 Overview: Dr.Vincent Suarez Tubular adenoma of colon 02/08/2017 Occult GI bleeding 01/19/2017 8 Bladder mass 02/24/2016 07/07/2016 Rash 01/14/2015 04/17/2019 Abnormal LFTs (liver function tests) 06/27/2013 01/06/2021 Overview: Dr. Kelby Suarez, GI/hepatology. 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 Elevated prostate specific antigen (PSA) 07/19/2007 07/31/2017 documented as of this encounter (statuses as of 08/15/2023) [facility]10-25-2023 History of Past illness Narrative* Problem Noted Date Diagnosed Date Resolved Date Hyperkalemia 04/04/2023 08/13/2023 Last Assessment & Plan: Assessment: potassium 5.4 Plan: change to low potassium diet Follow potassium on daily CMP Post-operative pain 04/01/2023 04/25/20 Last Assessment & Plan: Assessment: - pain controlled with current regimen: Tylenol scheduled, 500 mg q 6 hours Oxycodone 5-10 mg q 3 hours prn Plan: Decrease oxycodone to 5 mg q 6 hours as needed Continue scheduled tylenol Acute postoperative respiratory insufficiency 04/01/2004/25/2023 Last Assessment & Plan: Assessment: avg pulse of 95% on nasal cannula Plan: monitor respiratory status oxygen as needed encourage IS Acute blood loss anemia 04/01/2023 12/ Last Assessment & Plan: Assessment: hgb 10.7, stable Plan: continue to monitor cbc with diff daily transfuse as needed check INR tomorrow morning S/P TIPS (transjugular intra hepatic portosystemic shunt) 09/20/2022 04/25/2023 Pleural effusion associated with hepatic disorder 09/20/2022 05/30/2023 Status post chest tube placement 09/20/2022 09/27/2022 Urinary retention 09/20/2022 09/27/2022 Urethral stricture 09/20/2022 Bronchiolar disease 09/15/2022 05/30/20 Last Assessment & Plan: Thoracentesis as needed. Other ascites 09/15/2022 05/30/2023 Last Assessment & Plan: Paracentesis as needed. Right inguinal hernia 09/04/20222022 Last Assessment & Plan: Reducible. Painful at times. Diarrhea 03/29/2022 02/07/2023 BPH associated with nocturia 08/08/2021 09/15/2022 Elevated LFTs 02/10/2020 02/07/2023 Portal hypertension with esophageal varices 02/10/2020 04/25/2023 DURANT (nonalcoholic steatohepatitis) 02/10/2020 05/30/2023 Last Assessment & Plan: S/p OLT on 04/01 -Management per primary -clear liquids -Liver ultrasound at bedside 04/02: IMPRESSION: Patent hepatic vessels with appropriately directed flow. Persistent high resistance waveforms. Normal sonographic appearance of the transplant liver. Hepatic fibrosis (HCC) on elastography 02/09/2018 02/07/2023 Overview: Dr. Kelby Suarez. GI Abnormal result of iron profile testing 07/15/2017 01/11/2022 Overview: Dr.Vincent Suarez Tubular adenoma of colon 02/08/2017 Occult GI bleeding 01/19/2017 8 Bladder mass 02/24/2016 07/07/2016 Rash 01/14/2015 04/17/2019 Abnormal LFTs (liver function tests) 06/27/2013 01/06/2021 Overview: Dr. Kelby Suarez, GI/hepatology. 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 Elevated prostate specific antigen (PSA) 07/19/2007 07/31/2017 documented as of this encounter (statuses as of 08/22/2023) [facility]10-25-2023 History of Past illness Narrative* Problem Noted Date Diagnosed Date Resolved Date Hyperkalemia 04/04/2023 08/13/2023 Last Assessment & Plan: Assessment: potassium 5.4 Plan: change to low potassium diet Follow potassium on daily CMP Post-operative pain 04/01/2023 04/25/20 Last Assessment & Plan: Assessment: - pain controlled with current regimen: Tylenol scheduled, 500 mg q 6 hours Oxycodone 5-10 mg q 3 hours prn Plan: Decrease oxycodone to 5 mg q 6 hours as needed Continue scheduled tylenol Acute postoperative respiratory insufficiency 04/01/2004/25/2023 Last Assessment & Plan: Assessment: avg pulse of 95% on nasal cannula Plan: monitor respiratory status oxygen as needed encourage IS Acute blood loss anemia 04/01/202305/12 Last Assessment & Plan: Assessment: hgb 10.7, stable Plan: continue to monitor cbc with diff daily transfuse as needed check INR tomorrow morning S/P TIPS (transjugular intra hepatic portosystemic shunt) 09/20/2022 04/25/2023 Pleural effusion associated with hepatic disorder 09/20/2022 05/30/2023 Status post chest tube placement 09/20/2022 09/27/2022 Urinary retention 09/20/2022 09/27/2022 Urethral stricture 09/20/2022 Bronchiolar disease 09/15/2022 05/30/20 Last Assessment & Plan: Thoracentesis as needed. Other ascites 09/15/2022 05/30/2023 Last Assessment & Plan: Paracentesis as needed. Right inguinal hernia 09/04/20222022 Last Assessment & Plan: Reducible. Painful at times. Diarrhea 03/29/2022 02/07/2023 BPH associated with nocturia 08/08/2021 09/15/2022 Elevated LFTs 02/10/2020 02/07/2023 Portal hypertension with esophageal varices 02/10/2020 04/25/2023 DURANT (nonalcoholic steatohepatitis) 02/10/2020 05/30/2023 Last Assessment & Plan: S/p OLT on 04/01 -Management per primary -clear liquids -Liver ultrasound at bedside 04/02: IMPRESSION: Patent hepatic vessels with appropriately directed flow. Persistent high resistance waveforms. Normal sonographic appearance of the transplant liver. Hepatic fibrosis (HCC) on elastography 02/09/2018 02/07/2023 Overview: Dr. Kelby Suarez. GI Abnormal result of iron profile testing 07/15/2017 01/11/2022 Overview: Dr.Vincent Suarez Tubular adenoma of colon 02/08/2017 Occult GI bleeding 01/19/2017 8 Bladder mass 02/24/2016 07/07/2016 Rash 01/14/2015 04/17/2019 Abnormal LFTs (liver function tests) 06/27/2013 01/06/2021 Overview: Dr. Kelby Suarez, GI/hepatology. 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 Elevated prostate specific antigen (PSA) 07/19/2007 07/31/2017 documented as of this encounter (statuses as of 08/30/2023) [facility]-25-2023 History of Past illness Narrative* Problem Noted Date Diagnosed Date Resolved Date Hyperkalemia 04/04/2023 08/13/2023 Last Assessment & Plan: Assessment: potassium 5.4 Plan: change to low potassium diet Follow potassium on daily CMP Post-operative pain 04/01/2023 04/25/20 23 Last Assessment & Plan: Assessment: - pain controlled with current regimen: Tylenol scheduled, 500 mg q 6 hours Oxycodone 5-10 mg q 3 hours prn Plan: Decrease oxycodone to 5 mg q 6 hours as needed Continue scheduled tylenol Acute postoperative respiratory insufficiency 04/01/2004/25/2023 Last Assessment & Plan: Assessment: avg pulse of 95% on nasal cannula Plan: monitor respiratory status oxygen as needed encourage IS Acute blood loss anemia 04/01/202305/12 Last Assessment & Plan: Assessment: hgb 10.7, stable Plan: continue to monitor cbc with diff daily transfuse as needed check INR tomorrow morning S/P TIPS (transjugular intra hepatic portosystemic shunt) 09/20/2022 04/25/2023 Pleural effusion associated with hepatic disorder 09/20/2022 05/30/2023 Status post chest tube placement 09/20/2022 09/27/2022 Urinary retention 09/20/2022 09/27/2022 Urethral stricture 09/20/2022 Bronchiolar disease 09/15/2022 05/30/20 Last Assessment & Plan: Thoracentesis as needed. Other ascites 09/15/2022 05/30/2023 Last Assessment & Plan: Paracentesis as needed. Right inguinal hernia 09/04/20222022 Last Assessment & Plan: Reducible. Painful at times. Diarrhea 03/29/2022 02/07/2023 BPH associated with nocturia 08/08/2021 09/15/2022 Elevated LFTs 02/10/2020 02/07/2023 Portal hypertension with esophageal varices 02/10/2020 04/25/2023 Hepatic fibrosis (HCC) on elastography 02/09/2018 02/07/2023 Overview: Dr. Kelby Suarez. GI Abnormal result of iron profile testing 07/15/2017 01/11/2022 Overview: Dr.Vincent Suarez Tubular adenoma of colon 02/08/2017 Occult GI bleeding 01/19/2017 8 Bladder mass 02/24/2016 07/07/2016 Rash 01/14/2015 04/17/2019 Abnormal LFTs (liver function tests) 06/27/2013 01/06/2021 Overview: Dr. Kelby Suarez, GI/hepatology. 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 Elevated prostate specific antigen (PSA) 07/19/2007 07/31/2017 documented as of this encounter (statuses as of 09/12/2023) [facility]-25-2023 History of Past illness Narrative* Problem Noted Date Diagnosed Date Resolved Date Hyperkalemia 04/04/2023 08/13/2023 Last Assessment & Plan: Assessment: potassium 5.4 Plan: change to low potassium diet Follow potassium on daily CMP Post-operative pain 04/01/2023 04/25/20 Last Assessment & Plan: Assessment: - pain controlled with current regimen: Tylenol scheduled, 500 mg q 6 hours Oxycodone 5-10 mg q 3 hours prn Plan: Decrease oxycodone to 5 mg q 6 hours as needed Continue scheduled tylenol Acute postoperative respiratory insufficiency 04/01/2004/25/2023 Last Assessment & Plan: Assessment: avg pulse of 95% on nasal cannula Plan: monitor respiratory status oxygen as needed encourage IS Acute blood loss anemia 04/01/2023 12/2 Last Assessment & Plan: Assessment: hgb 10.7, stable Plan: continue to monitor cbc with diff daily transfuse as needed check INR tomorrow morning S/P TIPS (transjugular intra hepatic portosystemic shunt) 09/20/2022 04/25/2023 Pleural effusion associated with hepatic disorder 09/20/2022 05/30/2023 Status post chest tube placement 09/20/2022 09/27/2022 Urinary retention 09/20/2022 09/27/2022 Urethral stricture 09/20/2022 Bronchiolar disease 09/15/2022 05/30/20 Last Assessment & Plan: Thoracentesis as needed. Other ascites 09/15/2022 05/30/2023 Last Assessment & Plan: Paracentesis as needed. Right inguinal hernia 09/04/20222022 Last Assessment & Plan: Reducible. Painful at times. Diarrhea 03/29/2022 02/07/2023 BPH associated with nocturia 08/08/2021 09/15/2022 Elevated LFTs 02/10/2020 02/07/2023 Portal hypertension with esophageal varices 02/10/2020 04/25/2023 Hepatic fibrosis (HCC) on elastography 02/09/2018 02/07/2023 Overview: Dr. Kelby Suarez. GI Abnormal result of iron profile testing 07/15/2017 01/11/2022 Overview: Dr.Vincent Suarez Tubular adenoma of colon 02/08/2017 Occult GI bleeding 01/19/2017 8 Bladder mass 02/24/2016 07/07/2016 Rash 01/14/2015 04/17/2019 Abnormal LFTs (liver function tests) 06/27/2013 01/06/2021 Overview: Dr. Kelby Suarez, GI/hepatology. 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 Elevated prostate specific antigen (PSA) 07/19/2007 07/31/2017 documented as of this encounter (statuses as of 09/17/2023) [facility]10-23-2023 History of Present illness Narrative* Niki Madera RN - 04/02/2023 9:42 AM EDT DONOR ID: [id number] MATCH RUN: [id number] Type of Donor: DBD At risk donor: No Liver pumped: Yes, [employer] TRANSPLANT SEROLOGIES: CMV IgG: Donor POSITIVE/ Recipient NEGATIVE EBV IgG: Donor POSITIVE/ Recipient POSITIVE Anti-HCV: Donor POSITIVE Donor has tested positive for COVID: No Niki Madera RN, BSN, [facility] [employer] Representative [facility] History of Past illness Narrative* Problem Noted Date Diagnosed Date Resolved Date Post-operative pain 04/01/2023 04/25/20 Last Assessment & Plan: Assessment: - pain controlled with current regimen: Tylenol scheduled, 500 mg q 6 hours Oxycodone 5-10 mg q 3 hours prn Plan: Decrease oxycodone to 5 mg q 6 hours as needed Continue scheduled tylenol Acute postoperative respiratory insufficiency 04/01/2004/25/2023 Last Assessment & Plan: Assessment: avg pulse of 95% on nasal cannula Plan: monitor respiratory status oxygen as needed encourage IS S/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 Painful at times. Diarrhea 03/29/2022 02/07/2023 BPH associated with nocturia 08/08/2021 09/15/2022 Elevated LFTs 02/10/2020 02/07/2023 Portal hypertension with esophageal varices 02/10/2020 04/25/2023 Hepatic fibrosis (HCC) on elastography 02/09/2018 02/07/2023 Overview: Dr. Kelby Suarez. GI Abnormal result of iron profile testing 07/15/2017 01/11/2022 Overview: Dr.Vincent Suarez Tubular adenoma of colon 02/08/2017 Occult GI bleeding 01/19/2017 8 Bladder mass 02/24/2016 07/07/2016 Rash 01/14/2015 04/17/2019 Abnormal LFTs (liver function tests) 06/27/2013 01/06/2021 Overview: Dr. Kelby Suarez, GI/hepatology. 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 Elevated prostate specific antigen (PSA) 07/19/2007 07/31/2017 documented as of this encounter (statuses as of 04/26/2023) [facility] History of Past illness Narrative* Problem Noted Date Diagnosed Date Resolved Date Post-operative pain 04/01/2023 04/25/20 Last Assessment & Plan: Assessment: - pain controlled with current regimen: Tylenol scheduled, 500 mg q 6 hours Oxycodone 5-10 mg q 3 hours prn Plan: Decrease oxycodone to 5 mg q 6 hours as needed Continue scheduled tylenol Acute postoperative respiratory insufficiency 04/01/2004/25/2023 Last Assessment & Plan: Assessment: avg pulse of 95% on nasal cannula Plan: monitor respiratory status oxygen as needed encourage IS S/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 Painful at times. Diarrhea 03/29/2022 02/07/2023 BPH associated with nocturia 08/08/2021 09/15/2022 Elevated LFTs 02/10/2020 02/07/2023 Portal hypertension with esophageal varices 02/10/2020 04/25/2023 Hepatic fibrosis (HCC) on elastography 02/09/2018 02/07/2023 Overview: Dr. Kelby Suarez. GI Abnormal result of iron profile testing 07/15/2017 01/11/2022 Overview: Dr.Vincent Suarez Tubular adenoma of colon 02/08/2017 Occult GI bleeding 01/19/2017 8 Bladder mass 02/24/2016 07/07/2016 Rash 01/14/2015 04/17/2019 Abnormal LFTs (liver function tests) 06/27/2013 01/06/2021 Overview: Dr. Kelby Suarez, GI/hepatology. 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 Elevated prostate specific antigen (PSA) 07/19/2007 07/31/2017 documented as of this encounter (statuses as of 04/26/2023) [facility] History of Past illness Narrative* Problem Noted Date Diagnosed Date Resolved Date Post-operative pain 04/01/2023 04/25/20 Last Assessment & Plan: Assessment: - pain controlled with current regimen: Tylenol scheduled, 500 mg q 6 hours Oxycodone 5-10 mg q 3 hours prn Plan: Decrease oxycodone to 5 mg q 6 hours as needed Continue scheduled tylenol Acute postoperative respiratory insufficiency 04/01/2004/25/2023 Last Assessment & Plan: Assessment: avg pulse of 95% on nasal cannula Plan: monitor respiratory status oxygen as needed encourage IS S/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 Painful at times. Diarrhea 03/29/2022 02/07/2023 BPH associated with nocturia 08/08/2021 09/15/2022 Elevated LFTs 02/10/2020 02/07/2023 Portal hypertension with esophageal varices 02/10/2020 04/25/2023 Hepatic fibrosis (HCC) on elastography 02/09/2018 02/07/2023 Overview: Dr. Kelby Suarez. GI Abnormal result of iron profile testing 07/15/2017 01/11/2022 Overview: Dr.Vincent Suarez Tubular adenoma of colon 02/08/2017 Occult GI bleeding 01/19/2017 8 Bladder mass 02/24/2016 07/07/2016 Rash 01/14/2015 04/17/2019 Abnormal LFTs (liver function tests) 06/27/2013 01/06/2021 Overview: Dr. Kelby Suarez, GI/hepatology. 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 Elevated prostate specific antigen (PSA) 07/19/2007 07/31/2017 documented as of this encounter (statuses as of 04/26/2023) [facility] History of Past illness Narrative* Problem Noted Date Diagnosed Date Resolved Date Post-operative pain 04/01/2023 04/25/20 Last Assessment & Plan: Assessment: - pain controlled with current regimen: Tylenol scheduled, 500 mg q 6 hours Oxycodone 5-10 mg q 3 hours prn Plan: Decrease oxycodone to 5 mg q 6 hours as needed Continue scheduled tylenol Acute postoperative respiratory insufficiency 04/01/20 23 04/25/2023 Last Assessment & Plan: Assessment: avg pulse of 95% on nasal cannula Plan: monitor respiratory status oxygen as needed encourage IS S/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 Painful at times. Diarrhea 03/29/2022 02/07/2023 BPH associated with nocturia 08/08/2021 09/15/2022 Elevated LFTs 02/10/2020 02/07/2023 Portal hypertension with esophageal varices 02/10/2020 04/25/2023 Hepatic fibrosis (HCC) on elastography 02/09/2018 02/07/2023 Overview: Dr. Kelby Suarez. GI Abnormal result of iron profile testing 07/15/2017 01/11/2022 Overview: Dr.Vincent Suarez Tubular adenoma of colon 02/08/2017 Occult GI bleeding 01/19/2017 8 Bladder mass 02/24/2016 07/07/2016 Rash 01/14/2015 04/17/2019 Abnormal LFTs (liver function tests) 06/27/2013 01/06/2021 Overview: Dr. Kelby Suarez, GI/hepatology. 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 Elevated prostate specific antigen (PSA) 07/19/2007 07/31/2017 documented as of this encounter (statuses as of 04/27/2023) [facility] History of Past illness Narrative* Problem Noted Date Diagnosed Date Resolved Date Post-operative pain 04/01/2023 04/25/20 Last Assessment & Plan: Assessment: - pain controlled with current regimen: Tylenol scheduled, 500 mg q 6 hours Oxycodone 5-10 mg q 3 hours prn Plan: Decrease oxycodone to 5 mg q 6 hours as needed Continue scheduled tylenol Acute postoperative respiratory insufficiency 04/01/2004/25/2023 Last Assessment & Plan: Assessment: avg pulse of 95% on nasal cannula Plan: monitor respiratory status oxygen as needed encourage IS S/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 Painful at times. Diarrhea 03/29/2022 02/07/2023 BPH associated with nocturia 08/08/2021 09/15/2022 Elevated LFTs 02/10/2020 02/07/2023 Portal hypertension with esophageal varices 02/10/2020 04/25/2023 Hepatic fibrosis (HCC) on elastography 02/09/2018 02/07/2023 Overview: Dr. Kelby Suarez. GI Abnormal result of iron profile testing 07/15/2017 01/11/2022 Overview: Dr.Vincent Suarez Tubular adenoma of colon 02/08/2017 Occult GI bleeding 01/19/2017 8 Bladder mass 02/24/2016 07/07/2016 Rash 01/14/2015 04/17/2019 Abnormal LFTs (liver function tests) 06/27/2013 01/06/2021 Overview: Dr. Kelby Suarez, GI/hepatology. 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 Elevated prostate specific antigen (PSA) 07/19/2007 07/31/2017 documented as of this encounter (statuses as of 05/02/2023) [facility] History of Past illness Narrative* Problem Noted Date Diagnosed Date Resolved Date Post-operative pain 04/01/2023 04/25/20 Last Assessment & Plan: Assessment: - pain controlled with current regimen: Tylenol scheduled, 500 mg q 6 hours Oxycodone 5-10 mg q 3 hours prn Plan: Decrease oxycodone to 5 mg q 6 hours as needed Continue scheduled tylenol Acute postoperative respiratory insufficiency 04/01/2004/25/2023 Last Assessment & Plan: Assessment: avg pulse of 95% on nasal cannula Plan: monitor respiratory status oxygen as needed encourage IS S/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 Painful at times. Diarrhea 03/29/2022 02/07/2023 BPH associated with nocturia 08/08/2021 09/15/2022 Elevated LFTs 02/10/2020 02/07/2023 Portal hypertension with esophageal varices 02/10/2020 04/25/2023 Hepatic fibrosis (HCC) on elastography 02/09/2018 02/07/2023 Overview: Dr. Kelby Suarez. GI Abnormal result of iron profile testing 07/15/2017 01/11/2022 Overview: Dr.Vincent Suarez Tubular adenoma of colon 02/08/2017 Occult GI bleeding 01/19/2017 8 Bladder mass 02/24/2016 07/07/2016 Rash 01/14/2015 04/17/2019 Abnormal LFTs (liver function tests) 06/27/2013 01/06/2021 Overview: Dr. Kelby Suarez, GI/hepatology. 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 Elevated prostate specific antigen (PSA) 07/19/2007 07/31/2017 documented as of this encounter (statuses as of 05/02/2023) [facility]-22-2023 History of Past illness Narrative* Problem Noted Date Diagnosed Date Resolved Date Post-operative pain 04/01/2023 04/25/20 Last Assessment & Plan: Assessment: - pain controlled with current regimen: Tylenol scheduled, 500 mg q 6 hours Oxycodone 5-10 mg q 3 hours prn Plan: Decrease oxycodone to 5 mg q 6 hours as needed Continue scheduled tylenol Acute postoperative respiratory insufficiency 04/01/2004/25/2023 Last Assessment & Plan: Assessment: avg pulse of 95% on nasal cannula Plan: monitor respiratory status oxygen as needed encourage IS S/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 Painful at times. Diarrhea 03/29/2022 02/07/2023 BPH associated with nocturia 08/08/2021 09/15/2022 Elevated LFTs 02/10/2020 02/07/2023 Portal hypertension with esophageal varices 02/10/2020 04/25/2023 Hepatic fibrosis (HCC) on elastography 02/09/2018 02/07/2023 Overview: Dr. Kelby Suarez. GI Abnormal result of iron profile testing 07/15/2017 01/11/2022 Overview: Dr.Vincent Suarez Tubular adenoma of colon 02/08/2017 Occult GI bleeding 01/19/2017 8 Bladder mass 02/24/2016 07/07/2016 Rash 01/14/2015 04/17/2019 Abnormal LFTs (liver function tests) 06/27/2013 01/06/2021 Overview: Dr. Kelby Suarez, GI/hepatology. 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 Elevated prostate specific antigen (PSA) 07/19/2007 07/31/2017 documented as of this encounter (statuses as of 05/06/2023) [facility]-2023 History of Past illness Narrative* Problem Noted Date Diagnosed Date Resolved Date Post-operative pain 04/01/2023 04/25/20 Last Assessment & Plan: Assessment: - pain controlled with current regimen: Tylenol scheduled, 500 mg q 6 hours Oxycodone 5-10 mg q 3 hours prn Plan: Decrease oxycodone to 5 mg q 6 hours as needed Continue scheduled tylenol Acute postoperative respiratory insufficiency 04/01/20 23 04/25/2023 Last Assessment & Plan: Assessment: avg pulse of 95% on nasal cannula Plan: monitor respiratory status oxygen as needed encourage IS S/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 Painful at times. Diarrhea 03/29/2022 02/07/2023 BPH associated with nocturia 08/08/2021 09/15/2022 Elevated LFTs 02/10/2020 02/07/2023 Portal hypertension with esophageal varices 02/10/2020 04/25/2023 Hepatic fibrosis (HCC) on elastography 02/09/2018 02/07/2023 Overview: Dr. Kelby Suarez. GI Abnormal result of iron profile testing 07/15/2017 01/11/2022 Overview: Dr.Vincent Suarez Tubular adenoma of colon 02/08/2017 Occult GI bleeding 01/19/2017 8 Bladder mass 02/24/2016 07/07/2016 Rash 01/14/2015 04/17/2019 Abnormal LFTs (liver function tests) 06/27/2013 01/06/2021 Overview: Dr. Kelby Suarez, GI/hepatology. 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 Elevated prostate specific antigen (PSA) 07/19/2007 07/31/2017 documented as of this encounter (statuses as of 05/14/2023) [facility] History of Past illness Narrative* Problem Noted Date Diagnosed Date Resolved Date Post-operative pain 04/01/2023 04/25/20 Last Assessment & Plan: Assessment: - pain controlled with current regimen: Tylenol scheduled, 500 mg q 6 hours Oxycodone 5-10 mg q 3 hours prn Plan: Decrease oxycodone to 5 mg q 6 hours as needed Continue scheduled tylenol Acute postoperative respiratory insufficiency 04/01/2004/25/2023 Last Assessment & Plan: Assessment: avg pulse of 95% on nasal cannula Plan: monitor respiratory status oxygen as needed encourage IS S/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 Painful at times. Diarrhea 03/29/2022 02/07/2023 BPH associated with nocturia 08/08/2021 09/15/2022 Elevated LFTs 02/10/2020 02/07/2023 Portal hypertension with esophageal varices 02/10/2020 04/25/2023 Hepatic fibrosis (HCC) on elastography 02/09/2018 02/07/2023 Overview: Dr. Kelby Suarez. GI Abnormal result of iron profile testing 07/15/2017 01/11/2022 Overview: Dr.Vincent Suarez Tubular adenoma of colon 02/08/2017 Occult GI bleeding 01/19/2017 8 Bladder mass 02/24/2016 07/07/2016 Rash 01/14/2015 04/17/2019 Abnormal LFTs (liver function tests) 06/27/2013 01/06/2021 Overview: Dr. Kelby Suarez, GI/hepatology. 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 Elevated prostate specific antigen (PSA) 07/19/2007 07/31/2017 documented as of this encounter (statuses as of 05/25/2023) [facility] History of Past illness Narrative* Problem Noted Date Diagnosed Date Resolved Date Post-operative pain 04/01/2023 04/25/20 Last Assessment & Plan: Assessment: - pain controlled with current regimen: Tylenol scheduled, 500 mg q 6 hours Oxycodone 5-10 mg q 3 hours prn Plan: Decrease oxycodone to 5 mg q 6 hours as needed Continue scheduled tylenol Acute postoperative respiratory insufficiency 04/01/20 23 04/25/2023 Last Assessment & Plan: Assessment: avg pulse of 95% on nasal cannula Plan: monitor respiratory status oxygen as needed encourage IS Acute blood loss anemia 04/01/2023 12/ Last Assessment & Plan: Assessment: hgb 10.7, stable Plan: continue to monitor cbc with diff daily transfuse as needed check INR tomorrow morning S/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 Other ascites 09/15/2022 05/30/2023 Last Assessment & Plan: Paracentesis as needed. Right inguinal hernia 09/04/20222022 Last Assessment & Plan: Reducible. Painful at times. Diarrhea 03/29/2022 02/07/2023 BPH associated with nocturia 08/08/2021 09/15/2022 Elevated LFTs 02/10/2020 02/07/2023 Portal hypertension with esophageal varices 02/10/2020 04/25/2023 DURANT (nonalcoholic steatohepatitis) 02/10/2020 05/30/2023 Last Assessment & Plan: S/p OLT on 04/01 -Management per primary -clear liquids -Liver ultrasound at bedside 04/02: IMPRESSION: Patent hepatic vessels with appropriately directed flow. Persistent high resistance waveforms. Normal sonographic appearance of the transplant liver. Hepatic fibrosis (HCC) on elastography 02/09/2018 02/07/2023 Overview: Dr. Kelby Suarez. GI Abnormal result of iron profile testing 07/15/2017 01/11/2022 Overview: Dr.Vincent Suarez Tubular adenoma of colon 02/08/2017 Occult GI bleeding 01/19/2017 8 Bladder mass 02/24/2016 07/07/2016 Rash 01/14/2015 04/17/2019 Abnormal LFTs (liver function tests) 06/27/2013 01/06/2021 Overview: Dr. Kelby Suarez, GI/hepatology. 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 Elevated prostate specific antigen (PSA) 07/19/2007 07/31/2017 documented as of this encounter (statuses as of 07/20/2023) [facility] History of Past illness Narrative* Problem Noted Date Diagnosed Date Resolved Date Post-operative pain 04/01/2023 04/25/20 Last Assessment & Plan: Assessment: - pain controlled with current regimen: Tylenol scheduled, 500 mg q 6 hours Oxycodone 5-10 mg q 3 hours prn Plan: Decrease oxycodone to 5 mg q 6 hours as needed Continue scheduled tylenol Acute postoperative respiratory insufficiency 04/01/2004/25/2023 Last Assessment & Plan: Assessment: avg pulse of 95% on nasal cannula Plan: monitor respiratory status oxygen as needed encourage IS Acute blood loss anemia 04/01/202305/12 Last Assessment & Plan: Assessment: hgb 10.7, stable Plan: continue to monitor cbc with diff daily transfuse as needed check INR tomorrow morning S/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 Other ascites 09/15/2022 05/30/2023 Last Assessment & Plan: Paracentesis as needed. Right inguinal hernia 09/04/20222022 Last Assessment & Plan: Reducible. Painful at times. Diarrhea 03/29/2022 02/07/2023 BPH associated with nocturia 08/08/2021 09/15/2022 Elevated LFTs 02/10/2020 02/07/2023 Portal hypertension with esophageal varices 02/10/2020 04/25/2023 DURANT (nonalcoholic steatohepatitis) 02/10/2020 05/30/2023 Last Assessment & Plan: S/p OLT on 04/01 -Management per primary -clear liquids -Liver ultrasound at bedside 04/02: IMPRESSION: Patent hepatic vessels with appropriately directed flow. Persistent high resistance waveforms. Normal sonographic appearance of the transplant liver. Hepatic fibrosis (HCC) on elastography 02/09/2018 02/07/2023 Overview: Dr. Kelby Suarez. GI Abnormal result of iron profile testing 07/15/2017 01/11/2022 Overview: Dr.Vincent Suarez Tubular adenoma of colon 02/08/2017 Occult GI bleeding 01/19/2017 8 Bladder mass 02/24/2016 07/07/2016 Rash 01/14/2015 04/17/2019 Abnormal LFTs (liver function tests) 06/27/2013 01/06/2021 Overview: Dr. Kelby Suarez, GI/hepatology. 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 Elevated prostate specific antigen (PSA) 07/19/2007 07/31/2017 documented as of this encounter (statuses as of 08/02/2023) [facility]10-21-2023 Miscellaneous Notes* Telephone Encounter - Bao Maher - 03/31/2023 12:41 PM EDT Called and informed the patient of a potential liver offer per Dr. Louise. Explained to the patient that per Dr. Louise the liver offer is from a BRAIN / HCV donor. The patient acknowledgedan understanding and an opportunity was provided to ask questions. The patient agreed to come to the [facility] for potential liver transplant. Explained the possibility of a dry run. Instructed the patient to stop eating and drinking at this time. Contact information was provided to the patient. Patient informed to bring meds from home. They verbalized understanding. Pt stated has no symptoms and has not come into contact with anyone who has COVID. Plan to pump liver: Yes Organ with risk criteria present No Donor has tested positive for COVID: No Patient has been informed that extra vessel/s may be used for the procedure and may be from a donororgan that has risk factors present for undetected HIV, HBV, and HCV infection. Explained that the donor was tested prior to organ donation, however, there can be a small chance that the test is negative even if the virus is present. The risk of transmission is very low but not zero. For this reason, all recipients are tested for these viruses after transplant. Karnofsky Score: 40% Bao MARIE, RN documented in this encounterK[facility]10-09-2023 NoteHNO ID: [id number] Author: Krista Clark CT Service: Radiology Author Type: Technologist Type: Progress Notes Filed: 03/19/2023 9:51 AM Note Text: Radiology Service Progress Note PATIENT NAME: Jesus Sosa DATE OF SERVICE: March 19, 2023 TIME: 9:51 AM PATIENT IDENTITY VERIFICATION COMPLETED USING TWO (2) IDENTIFIERS: Name and Date of confirmed by patient verbally. FALL SCREENING: Has the patient had 2 falls in the last year or 1 fall with injury or currently using an Ambulatory Assistive Device (Walker, Cane, Wheelchair, Crutches, etc.)? No PATIENT GENDER DATA: Male PATIENT RELEVANT IMPLANT DATA REVIEWED: Not Applicable RADIOLOGY DEPARTMENT: Ultrasound PERIPHERAL IV DATA: Not applicable SIGNED BY: CLARY Munoz March 19, 2023 9:51 [facility]rom[facility] [id number] History of Present illness Narrative* Aylin Candelaria LPN - 03/12/2023 1:15 PM EDT Patient presents for Twinrix and flu vaccines. Denies any problems at this time. Tolerated injections well. Aylin Candelaria LPN documented in this encounterK[facility]09-29-2023 Miscellaneous Notes* Telephone Encounter - Edda Mccoy HUC - 03/09/2023 2:28 PM EDT Spoke with patient to confirm 04/06 @ 9 am appointment for a Thoracentesis. documented in this encounterKet[facility] Health09-29-2023 Surgical operation note* Operative Report - Maxi Perez MD - 03/09/2023 9:38 AM EDT THORACENTESIS NOTE SERVICE DATE: 03/09/2023 SERVICE TIME: 9:56 AM LOCATION: Outpatient PROCEDURE: Right Thoracentesis with Ultrasound guidance RECREATION MANAGER: Maxi Perez MD AND DRYING SUPERVISOR COOKING CASING: Dr Mary Harrington (fellow) REFERRING PHYSICIAN/SERVICE Tevin Toscano PRE - PROCEDURE DIAGNOSIS: Hepatic Hydrothorax POST PROCEDURE DIAGNOSIS: Hepatic Hydrothorax INDICATION: Therapeutic SAFE PRACTICE: Informed consent obtained and filed in patient's chart. SAFE PRACTICE Sign in Communication: Completed. Time Out: The procedural team confirmed the Correct Patient, the Correct Procedure, the Correct Site and the Correct Position (if applicable) during the audible time out: Completed. Sign Out Communication: Completed. PROCEDURE START TIME: 945AM IMAGING GUIDANCE: Ultrasound was used. Images were recorded. ULTRASOUND FINDINGS: The Right chest was scanned using ultrasound. A small sized effusion was seen. Septations: Absent. Pleural nodules: Absent. Pleural thickening was Absent. ANESTHESIA: Local, using 9ml of 1% Lidocaine. SEDATION: No PROCEDURE DETAIL: After scanning the chest the appropriate site for thoracentesis was marked and was prepped using Chlorhexidine Gluconate Local anesthesia was administered. A standard thoracentesis needle and catheter were advanced into the right fluid collection without any difficulty. Once the fluid collection was found, the catheter was advanced further into the pleural space, the needle was removed, and drainage was initiated using a wall suction method. Once drainage was completed the catheter was removed and the site was bandaged. The fluid was sent to the lab for further analysis. FLUID COLOR: Serous TOTAL FLUID REMOVED: 1000mL THORACENTESIS PRESSURES: Intrapleural pressures not measured. PROCEDURE END TIME: 10:04AM PROCEDURE TERMINATED DUE TO: No further drainage IMMEDIATE COMPLICATIONS: None POST PROCEDURE ULTRASOUND: not done IMPRESSION: Completed Right thoracentesis with approximately 1000mL of fluid withdrawal. Estimated blood loss: Minimal. I was present for the entire procedure. This service has been performed in part by a resident/fellow under attending's direction. aMxi Perez MD SIGNATURE: Maxi Perez MD PATIENT NAME: Jesus Sosa DATE: March 09, 2023 TIME: 9:56 AM PAGER/CONTACT #: documented in this encounterKettering Health09-19-2023 Miscellaneous Notes* Telephone Encounter - Katerine Velasquez RN - 02/27/2023 2:44 PM EDT Medication request. Last hepatology appt: 01/15/23 Upcoming appt: 07/23/2023 Kaetrine Velasquez RN February 27, 2023 2:46 PM documented in this encounterKettering Health09-15-2023 Miscellaneous Notes* Telephone Encounter - Katerine Velasquez RN - 02/23/2023 2:56 PM EDT Pt notified via [facility]. Katerine Velasquez RN February 23, 2023 2:56 PM * Telephone Encounter - Tevin De La Cruz MD - 02/19/2023 6:02 PM EDT Although he was previously treated with high dose vitamin D, it would be inappropriate to continue that dose indefinitely Please let him know that the repeat vitamin D level is now within the normal range,and so he shouldstart on a standard over the counter supplement dose - w 2,000 international unit(s) Per day Please call the patient and explain Thanks * Telephone Encounter - Katerine Velasquez RN - 02/19/2023 4:53 PM EDT Medication request. Last hepatology appt: 01/15/23 Upcoming appt: 07/23/23 Katerine Velasquez RN February 19, 2023 4:54 PM documented in this encounterKettering Health08-31-2023 Miscellaneous Notes* Telephone Encounter - Krissy Horn RN - 02/08/2023 3:58 PM EDT Call returned. Patient agrees to keep his DEXA scan appointment at [facility] until he las the local DEXA scheduled. He will send me a message on [facility] with date. He will get labs drawn when he is here on02/16/23. Krissy Horn RN * Telephone Encounter - Drea Mcmahon - 02/08/2023 12:04 PM EDT Patient called to speak to nurse coordinator Chata regarding his bone density appt and labs. Patient would like to know if that can be done in [place] vs coming to main campus. documented in this encounterKettering Health08-30-2023 Instructions* Patient Instructions* Willem Madsen MD - 02/07/2023 11:37 AM EDT GET COVID VACCINE WHEN AVAILABLE. documented in this encounterKettering Health08-30-2023 History of Present illness Narrative* Willem Madsen MD - 02/07/2023 11:13 AM EDT This note was created using [employer]. Subjective Jesus Sosa is a 73 year old male. He was getting regular thoracentesis or paracentesis to control pleural effusion or ascites. He was now on the transplant list. Medications were reviewed, andcomplex conditions were stable. He mentioned intermittent diplopia. He had seen his property economist forthis with no specific findings. Review of Systems Constitutional: Negative for appetite change, fever and unexpected weight change. HENT: Negative for congestion. Respiratory: Negative for cough, chest tightness, shortness of breath and wheezing. Cardiovascular: Positive for leg swelling. Negative for chest pain and palpitations. Gastrointestinal: Positive for abdominal distention. Negative for abdominal pain, constipation, diarrhea, nausea and vomiting. Genitourinary: Negative for difficulty urinating. Musculoskeletal: Negative for arthralgias and myalgias. Neurological: Negative for dizziness and headaches. Psychiatric/Behavioral: Negative for confusion and dysphoric mood. ACTIVE PROBLEM LIST Mixed Hyperlipidemia Stented Coronary Artery Tubular Adenoma of Colon Coronary Arteriosclerosis in [place] Artery Obesity, Class I, Bmi 30-34.9 Ckd (Chronic Kidney Disease) Stage 3, Gfr 30-59 Ml/Min (Hcc) Vanessa (Obstructive Sleep Apnea) Umbilical Hernia Nonalcoholic Fatty Liver Disease Without Nonalcoholic Steatohepatitis (Durant) Vitamin D Deficiency Portal Hypertension With Esophageal Varices (Hcc) Liver Cirrhosis Secondary to [place] (Hcc) Right Inguinal Hernia H/O Prostatectomy Bronchiolar Disease Other Ascites S/P Tips (Transjugular Intrahepatic Portosystemic Shunt) Pleural Effusion Associated With Hepatic Disorder Urethral Stricture Platelets Decreased (Hcc) Current Outpatient Medications Medication Sig spironolactone (ALDACTONE) 50 mg tablet Take 1 tablet by mouth once daily. Patient to take 1 tabletonce daily and double dose to 2 tablets every other day. (Patient taking differently: Take 100 mg by mouth once daily. Patient to take 1 tablet once daily and double dose to 2 tablets every other day.) furosemide (LASIX) 20 mg tablet Take 1 tablet by mouth once daily. Patient to take 1 tablet once daily and double dose to 2 tablets every other day. (Patient taking differently: Take 40 mg by mouth once daily. Patient to take 1 tablet once daily and double dose to 2 tablets every other day.) alirocumab (PRALUENT PEN) 150 mg/mL Inject 150 mg subcutaneously every 2 weeks. Per cabbage salter.inplace of statin aspirin(ECOTRIN LOW STRENGTH 81 MG TAB) Take one(1) tablet daily. vitamin A (AQUASOL A) 10,000 unit capsule Take 1 capsule by mouth once daily. (Patient taking differently: Take 10,000 Units by mouth once daily. Patient is currently taking three (3) 3,000 units once daily.) ergocalciferol 50,000 unit capsule (VITAMIN D2, DRISDOL) Take 1 capsule by mouth one time a week for 12 doses. No current facility-administered medications for this visit. Objective BP 126/50 (BP Site: Left Arm, BP Position: Sitting, BP Cuff Size: Large Adult) Pulse 72 Resp 16 Ht 171.7 cm (5' 7.6) Wt 93.9 kg (207 lb) BMI 31.85 kg/m Physical Exam Constitutional: General: He is not in acute distress. Appearance: He is not diaphoretic. HENT: Head: Normocephalic. Eyes: General: No scleral icterus. Extraocular Movements: Extraocular movements intact. Conjunctiva/sclera: Conjunctivae normal. Cardiovascular: Rate and Rhythm: Normal rate and regular rhythm. Heart sounds: No murmur heard. No gallop. Pulmonary: Effort: No respiratory distress. Breath sounds: Examination of the left-lower field reveals rales. Rales present. No decreased breath sounds, wheezing or rhonchi. Abdominal: General: There is distension. Musculoskeletal: Right lower le+ Edema present. Left lower le+ Edema present. Neurological: General: No focal deficit present. Mental Status: He is alert and oriented to person, place, and time. Motor: No tremor or abnormal muscle tone. Gait: Gait normal. Deep Tendon Reflexes: Reflexes normal. Assessment and Plan 1. Medicare annual wellness visit, subsequent - ICD9: V70.0, ICD10: Z00.00 (primary diagnosis) See wellness note. 2. Transient diplopia - ICD9: 368.2, ICD10: H53.2 I offered referral. He will see his property economist first. 3. Hyperglycemia - ICD9: 790.29, ICD10: R73.9 Non fasting. A1C normal. - HEMOGLOBIN A1C (POC) 4. Stage 3a chronic kidney disease (HCC) - ICD9: 585.3, ICD10: N18.31 - eGFR: Stable - Counseled on avoiding NSAIDs, adequate hydration 5. Nonalcoholic fatty liver disease without nonalcoholic steatohepatitis (DURANT) - ICD9: 571.8, ICD10: K76.0 Per GI. 6. 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) - ICD9: 571.8, 571.5, ICD10: K75.81, K74.60 Per GI. 7. Platelets decreased (HCC) - ICD9: 287.5, ICD10: D69.6 Stable. 8. Need for vaccination - ICD9: V05.9, ICD10: Z23 - HEP A-HEP B VACCINE ([place]) - We reviewed his non responder status. Repeat the series. Willem Madsen MD * Willem Madsen MD - 02/07/2023 10:50 AM EDT Jesus Sosa is a 73 year old male here for a Medicare wellness visit. Health Risk Assessment In general, health is: Fair Concerns with balance: Not at all Concerns with teeth or dentures: Not at all Concerns with sexual function: Not at all [place] anxious, stressed, angry, irritable, lonely, isolated, or had thoughts of hurting themself: Not at all Has little interest or pleasure in doing things: Not at all Bothered by feeling down, depressed, or hopeless: Several days Needs help with grocery shopping, cooking, housework, bathing, grooming, dressing, eating, sitting or standing, walking, using the toilet, handling finances, taking medications, using the telephone, or driving: No Following safety precautions in the home environment and vehicle: removed throw rugs from floors, installed grab bars in the bathroom, handrails in stairwells, having adequate lighting, wearing seatbelt at all times?: Yes Smokes cigarettes, vapes, or chew tobacco: No Eats healthy foods including fruits, vegetables, whole grains, and fiber-rich foods: Nearly every day Number of days per week engages in exercise: 1 day Average alcohol consumption: Monthly or less Current Providers Specialists: I have reviewed specialist-related care of the patient in the medical record. Current care team: Patient Care Team: Willem Madsen MD as PCP - General Outside specialists seen: Dr. Nabor Goldberg, cardiology. Dr. Briseida Weir, hepatology. Dr. Mckeon, optometry. Dr. David Curry, [place] [facility], sleep medicine. Dr. Magdiel Lee, interventional radiology. Dr. JAMA Liver Transplant Team. Medical/Family history review Reviewed and updated problem list, medical/surgical/family/social history, medications, and allergies. Opioid use review Patient is not currently using opioids. Depression screening Depression Screening PHQ-2 Score OTTONIEL-2 Total Score 07/17/2022 1 - Depression screening tool completed and reviewed. Based on score and interview, patient is not at risk for depression. Screening tool discussed with patient, and I recommended no further interventionat this time. Cognitive screening Mini Cog Score: 5 Functional Observation Was the patient's timed Up & Go test unsteady or ? 12 seconds? No Advance Care Planning End of Life planning discussed, including patient's advanced directive wishes: Yes Measurements BP 126/50 Pulse 72 Resp 16 Ht 5' 7.6 (1.72m) Wt 207 lb (93.9kg) BMI 31.85 kg/(m^2). Visual acuity (required for Welcome to Medicare): follows with optometry/ophthalmology, screening completed today, and Right: 20/40 Left: 20/ 50 Both: 20/40 Hearing Evaluation: wears hearing aids Assessment/Plan Medicare annual wellness visit, subsequent (Z00.00) - Counseled on healthy diet and regular exercise - Fall avoidance - Vaccines recommended COVID-19 when available. - Depression screening documented in this encounterKettering Health08-30-2023 Miscellaneous Notes* Telephone Encounter - María Ralph - 02/07/2023 10:59 AM EDT SPOKE WITH KATERINE Palacios [phone] AGREED TO DOS 02/23 V V @ 8 * Telephone Encounter - Yane Miller APRN.CNP - 02/06/2023 3:46 PM EDT INTERVENTIONAL RADIOLOGY PATIENT APPOINTMENT REQUEST February 06, 2023 Jesus Franks Ian [id number] Request: Schedule Requestor: Yane Miller APRN.CNP Ref.Physician:dorothy BONILLA Physician: evan Procedure/Request: QB visit or VV Reason/ICD Code: s/p tips Priority: routine Scheduling Comments: please schedule lisbet to discuss TIPS follow up Does MD need to be present for consult?: yes IR Procedure Room: N/A Equipment or Vendor Request: No / N/A Anticipated length of procedure (not including prep or Anesthesia): NA Pre-Procedure Orders: na Sedation: NA Bed Reservation: NA [facility] of Procedure[facility] documented in this encounterKet[facility]08-25-2023 Procedure note* Duran Mcneil MD - 02/02/2023 9:40 AM EDT THORACENTESIS NOTE SERVICE DATE: 02/02/2023 SERVICE TIME: 9:41 AM LOCATION: Outpatient PROCEDURE: Right Thoracentesis with Ultrasound guidance RECREATION MANAGER: Quan Borrero DO AND DRYING SUPERVISOR COOKING CASING: Gissell (fellow) REFERRING PHYSICIAN/SERVICE Willem Plunkett PRE - PROCEDURE DIAGNOSIS: 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 SAFE PRACTICE Sign in Communication: Completed. Time Out: The procedural team confirmed the Correct Patient, the Correct Procedure, the Correct Site and the Correct Position (if applicable) during the audible time out: Completed. Sign Out Communication: Completed. PROCEDURE START TIME: 919 IMAGING GUIDANCE: Ultrasound was used. Images were recorded. ULTRASOUND FINDINGS: The Right chest was scanned using ultrasound. A large sized effusion was seen. Septations: Absent. Pleural nodules: Absent. Pleural thickening was Absent. ANESTHESIA: Local, using 10ml of 1% Lidocaine. SEDATION: No PROCEDURE DETAIL: After scanning the chest the appropriate site for thoracentesis was marked and was prepped using Chlorhexidine Gluconate Local anesthesia was administered. A standard thoracentesis needle and 5fr catheter were advanced into the right fluid collection without any difficulty. Once the fluid collection was found, the catheter was advanced further into the pleural space, the needle was removed, and drainage was initiated using a wall suction method. Once drainage was completed thecatheter was removed and the site was bandaged. The fluid was sent to the lab for further analysis. FLUID COLOR: Serous TOTAL FLUID REMOVED: 1500mL THORACENTESIS PRESSURES: Intrapleural pressures not measured. PROCEDURE END TIME: 937 PROCEDURE TERMINATED DUE TO: No further drainage IMMEDIATE COMPLICATIONS: None POST PROCEDURE ULTRASOUND: not done IMPRESSION: Completed Right thoracentesis with approximately 1500mL of fluid withdrawal. Estimated blood loss: Minimal. SIGNATURE: Quan Borrero DO PATIENT NAME: Jesus Sosa DATE: February 02, 2023 TIME: 9:41 AM PAGER/CONTACT #: STAFF NOTE: I was present for the entire procedure and agree with the documentation above. This service has been performed in part by a resident or fellow in training, under the direction of a teaching physician. Duran Mcneil MD Pager [phone] February 02, 2023 3:41 PM documented in this encounterKettering Health08-15-2023 Miscellaneous Notes* Telephone Encounter - Katerine Velasquez RN - 01/23/2023 4:10 PM EDT Receievd the following response from Dr. De La Cruz: Great I would be happiest if he were not getting tapped all the time Can you try to get him in to see Dr Lee in , in clinic, to decide on utility of parallel TIPs? His current MELD 3.0: 17 - but he may have to wait a while for transplant Thanks Pt notified via original [facility]. Katerine Velasquez RN January 23, 2023 4:10 PM * Telephone Encounter - Katerine Velasquez RN - 01/23/2023 10:09 AM EDT Pt sent the following response via MCM: Thanks. I m having Thorocentesis today 01/23 and hope to get blood work done after that today. I seem to be less sob since I took the new diuretic. Weight seems to remain around 206-207 since the weekend. Message sent to Dr. De La Cruz. Katerine Velasquez RN January 23, 2023 10:09 AM * Telephone Encounter - Katerine Velasquez RN - 01/23/2023 8:47 AM EDT Pt notified via original [facility]. Katerine Velasquez RN January 23, 2023 8:47 AM * Telephone Encounter - Tevin De La Cruz MD - 01/22/2023 9:05 PM EDT Katerine Can you please return the call, and let him know: We will need to recheck his kidney function testing to confirm no issues He needs to be vigilant about sodium intake, cont to check daily weights, etc Is his breathing better / stable? Will check in w Dr Lee Thanks * Telephone Encounter - Katerine Velasquez RN - 01/19/2023 11:42 AM EDT Pt sent the following MCM: Did Dr. De La Cruz contact Dr. Lee concerning my TIPS and what steps are available to check if it is working properly? As I'm sure Dr. De La Cruz knows that the evaluation committee has approved me for aliver transplant so this might be a bridge. The extra diuretic and the increase of the other two diuretics seems to be working since the day ofmy appointment my weight was 216 and today it was 210. This was the last day for the extra diuretic. I hope to get blood work done next Sunday or Sunday or at least some time next week. Message sent to Dr. De La Cruz for review. Katerine Velasquez RN January 19, 2023 11:42 AM documented in this encounterKettering Health08-15-2023 Miscellaneous Notes* Telephone Encounter - Krissy Horn RN - 01/23/2023 3:17 PM EDT Returned call... Questions for at the time of surgery discussed. All questions answered at this time. Krissy Horn RN * Telephone Encounter - Donya Power Tech - 01/23/2023 1:00 PM EDT Patient is asking to speak to coordinator Krissy again. He would like to go over few more questions regarding the liver tx. documented in this encounterKettering Health08-15-2023 Instructions* Patient Instructions* Krissy Horn RN - 01/23/2023 12:50 PM EDT BONE MINERAL DENSITY PATIENT INSTRUCTIONS Bone mineral density testing measures the amount of calcium in certain parts of your bones. This information determines how strong your bones are. The test is used to detect osteoporosis, a disease in which the bone's mineral content and density are low, increasing a person's risk of fractures. Thelumbar spine (lower back) and the hip are the skeletal sites usually examined. For the test, remember that: 1. You cannot take this test if you are . 2. Eat a normal diet on the day of the test. 3. Take your medications as you normally would. 4. DO NOT take calcium supplements (such as Tums) for 24 hours before the test. 5. On the day of the test, leave valuables (jewelry or credit cards) at home. 6. The test should be performed prior to oral, rectal or IV contrast studies, or at least 7 days after any of these studies. For the test, you may be asked to wear a hospital gown. You will lie on your back, on a padded table, in a comfortable position. Generally, you can resume your usual activities immediately. documented in this encounterKettering Health08-15-2023 Miscellaneous Notes* Telephone Encounter - Krissy Horn RN - 01/23/2023 11:52 AM EDT Spoke with Jesus Sosa, advised that patient is listed for liver transplant, MELD 17. Lab results used for listing obtained at [facility] dated 01/12/23: Na 134, Cr 1.23, TB 2.3, Alb 2.3, INR 1.2. Pt reports encephalopathy: none and ascites: moderate. Advised Jesus Sosa to call the office with changes in phone/address/medical insurance/worsening medical condition/local hospitalizations. Pt informed on how to access post liver transplant educational information online at [email or web address] (login: liver). Upcoming appointments reviewed, importance of maintaining f/u appointments was discussed. Is pt on dialysis at time of listing? No Does pt have a living donor? Yes Patient is willing to accept a Hepatitis C positive donor: Yes Per discussion at selection committee, pt can receive a DCD donor: No [place]AR[place] INDEX SCALE (Adult patients aged 18 and older) - Used to rate a patient's functional status before and after a medical procedure: 40 - Disabled. Requires special care and assistance. Work Status: retired physical capacity: limited ABO Verification prior to Listing: Jesus Sosa's ABO blood type has been verified using source documentation from samples: drawn on two separate occasions with different collection times submitted as separate samples The results of these samples are the same and indicate that the patient's ABO blood type is: A. Transplant Coordinators performing verification: 1. Krissy Horn RN 2. Peter Gallego RN Patient has been added to the [facility] waiting list. report given to donor coordinator: Megan Pichardo, Bao Melendrez, Katerine Maldonado, Wanda Hughes, Thalia Purcell Jehad Via email. Krissy Horn RN Pre-Bank Representative documented in this encounterKettering Health08-15-2023 Surgical operation note* Operative Report - Holly Shell MD - 01/23/2023 10:26 AM EDT THORACENTESIS NOTE SERVICE DATE: 01/23/2023 SERVICE TIME: 10:42 AM LOCATION: Outpatient PROCEDURE: Right Thoracentesis with Ultrasound guidance RECREATION MANAGER: Holly Shell MD AND DRYING SUPERVISOR COOKING CASING: NONE REFERRING PHYSICIAN/SERVICE Hepatology PRE - PROCEDURE DIAGNOSIS: Hepatic Hydrothorax POST PROCEDURE DIAGNOSIS: Hepatic Hydrothorax INDICATION: Therapeutic SAFE PRACTICE: Informed consent obtained and filed in patient's chart. SAFE PRACTICE Sign in Communication: Completed. Time Out: The procedural team confirmed the Correct Patient, the Correct Procedure, the Correct Site and the Correct Position (if applicable) during the audible time out: Completed. Sign Out Communication: Completed. PROCEDURE START TIME: 10:35 AM IMAGING GUIDANCE: Ultrasound was used. Images were recorded. ULTRASOUND FINDINGS: The Right chest was scanned using ultrasound. A large sized effusion was seen. Septations: Absent. Pleural nodules: Absent. Pleural thickening was Absent. ANESTHESIA: Local, using 10 ml of 1% Lidocaine. SEDATION: No PROCEDURE DETAIL: After scanning the chest the appropriate site for thoracentesis was marked and was prepped using Chlorhexidine Gluconate Local anesthesia was administered. A standard thoracentesis needle and catheter were advanced into the right fluid collection without any difficulty. Once the fluid collection was found, the catheter was advanced further into the pleural space, the needle was removed, and drainage was initiated using a wall suction method. Once drainage was completed the catheter was removed and the site was bandaged. The fluid was sent to the lab for further analysis. FLUID COLOR: Serous TOTAL FLUID REMOVED: 3000 mL THORACENTESIS PRESSURES: Intrapleural pressures not measured. PROCEDURE END TIME: 10:57 AM PROCEDURE TERMINATED DUE TO: Cough IMMEDIATE COMPLICATIONS: None POST PROCEDURE ULTRASOUND: not done IMPRESSION: Completed Right thoracentesis with approximately 3000 mL of fluid withdrawal. Estimatedblood loss: Minimal. SIGNATURE: Holly Shell MD PATIENT NAME: Jesus Sosa DATE: January 23, 2023 TIME: 10:42 AM PAGER/CONTACT #: documented in this encounterKettering Health08-11-2023 NoteHNO ID: [id number] Author: Krista Clark CT Service: Radiology Author Type: Technologist Type: Progress Notes Filed: 01/19/2023 3:24 PM Note Text: Radiology Service Progress Note PATIENT NAME: Jesus Sosa DATE OF SERVICE: January 19, 2023 TIME: 3:23 PM PATIENT IDENTITY VERIFICATION COMPLETED USING TWO (2) IDENTIFIERS: Name and Date of confirmed by patient verbally. FALL SCREENING: Has the patient had 2 falls in the last year or 1 fall with injury or currently using an Ambulatory Assistive Device (Walker, Cane, Wheelchair, Crutches, etc.)? No PATIENT GENDER DATA: Male PATIENT RELEVANT IMPLANT DATA REVIEWED: Not Applicable RADIOLOGY DEPARTMENT: Ultrasound PERIPHERAL IV DATA: Not applicable SIGNED BY: CLARY Munoz January 19, 2023 3:23 [facility]rom[facility] [id number] History of Present illness Narrative* Krista Clark CT - 01/19/2023 2:00 PM EDT Radiology Service Progress Note PATIENT NAME: Jesus Sosa DATE OF SERVICE: January 19, 2023 TIME: 3:23 PM PATIENT IDENTITY VERIFICATION COMPLETED USING TWO (2) IDENTIFIERS: Name and Date of confirmedby patient verbally. FALL SCREENING: Has the patient had 2 falls in the last year or 1 fall with injury or currently using an Ambulatory Assistive Device (Walker, Cane, Wheelchair, Crutches, etc.)? No PATIENT GENDER DATA: Male PATIENT RELEVANT IMPLANT DATA REVIEWED: Not Applicable RADIOLOGY DEPARTMENT: Ultrasound PERIPHERAL IV DATA: Not applicable SIGNED BY: CLARY Munoz January 19, 2023 3:23 PM documented in this encounterKettering Health08-10-2023 Miscellaneous Notes* Telephone Encounter - Krissy Horn RN - 01/18/2023 12:29 PM EDT Spoke with Jesus Sosa, advised that his case was discussed and approved at liver transplant selection committee on January 17, 2023. Next step is OSOTC and insurance approval. Krissy Horn RN documented in this encounterKettering Health08-08-2023 History of Present illness Narrative* Florence Baez RN - 01/16/2023 8:24 AM EDT [facility] Telephonic Outreach Provider Action/FYI CKD every 2 months Contacted for: Routine Telephonic Outreach Contact made with patient: Yes Patient identified by name and date of . Discussed care with patient Are you experiencing any new or worsening symptoms you need to talk about today? No Disease Specific Do you have new or worsening shortness of breath with activity? No Do you feel like you are dehydrated for any reason, including not being able to eat or drink normally, or having less urine/much darker urine than normal for you? No Do you check your daily weight at home? Yes, Have you noticed a sudden gain in weight greater than three pounds in a day or three pounds in a week? No Based on paper products supervisor, the following disposition is advised: No symptoms or symptoms present, not severe. Routed to: No Action Needed NILSON Education Provided this Outreach: No -patient continues to have routine procedures to manage liver failure so will start calling every 2months -saw GI yesterday and has had some changes to medications to help manage fluid burden -patient is working on meeting testing to move towards a living donor transplant Florence Baez RN January 16, 2023 documented in this encounterKettering Health08-03-2023 Miscellaneous Notes* Telephone Encounter - Kentrell Harden - 01/11/2023 10:20 AM EDT Pt walked out of appt to schedule thora 01/23 documented in this encounterKettering Health08-03-2023 Surgical operation note* Operative Report - Quan Iglesias MD - 01/11/2023 9:10 AM EDT THORACENTESIS NOTE SERVICE DATE: 01/11/2023 SERVICE TIME: 10:40 AM LOCATION: Outpatient PROCEDURE: Right Thoracentesis with Ultrasound guidance RECREATION MANAGER: Gloria Calero MD AND DRYING SUPERVISOR COOKING CASING: Quan Iglesias MD (fellow) REFERRING PHYSICIAN/SERVICE Hepatology PRE - PROCEDURE DIAGNOSIS: Hepatic Hydrothorax POST PROCEDURE DIAGNOSIS: Hepatic Hydrothorax INDICATION: Therapeutic SAFE PRACTICE: Informed consent obtained and filed in patient's chart. SAFE PRACTICE Sign in Communication: Completed. Time Out: The procedural team confirmed the Correct Patient, the Correct Procedure, the Correct Site and the Correct Position (if applicable) during the audible time out: Completed. Sign Out Communication: Completed. PROCEDURE START TIME: 935 IMAGING GUIDANCE: Ultrasound was used. Images were recorded. ULTRASOUND FINDINGS: The Right chest was scanned using ultrasound. A large sized effusion was seen. Septations: Absent. Pleural nodules: Absent. Pleural thickening was Absent. ANESTHESIA: Local, using 10ml of 1% Lidocaine. SEDATION: No PROCEDURE DETAIL: After scanning the chest the appropriate site for thoracentesis was marked and was prepped using Chlorhexidine Gluconate Local anesthesia was administered. A 5Fr standard thoracentesis needle and catheter were advanced into the right fluid collection without any difficulty. Once the fluid collection was found, the catheter was advanced further into the pleural space, the needle was removed, and drainage was initiated using a wall suction method. Once drainage was completed thecatheter was removed and the site was bandaged. The fluid was sent to the lab for further analysis. FLUID COLOR: Serous TOTAL FLUID REMOVED: 3200mL THORACENTESIS PRESSURES: Intrapleural pressures not measured. PROCEDURE END TIME: 1010 PROCEDURE TERMINATED DUE TO: Pain IMMEDIATE COMPLICATIONS: None POST PROCEDURE ULTRASOUND: done, with the following findings: residual small pleural effusion remains IMPRESSION: Completed Right thoracentesis with approximately 3200mL of fluid withdrawal. Estimated blood loss: Minimal. I was present for the entire procedure. This service has been performed in part by a resident/fellow under attending's direction. SIGNATURE: Quan Iglesias MD PATIENT NAME: Jesus Sosa DATE: January 11, 2023 TIME: 10:40 AM PAGER/CONTACT #: Associated attestation - Gloria Calero MD - 01/11/2023 10:42 AM EDT Pulm Staff: I was present for and supervised the entire procedure. Gloria Calero MD January 11, 2023 10:42 AM documented in this encounterKettering Health08-02-2023 History of Present illness Narrative* Emerson Chavez MD - 01/10/2023 12:16 PM EDT Images from the original note were not included. [facility] [place] Department of Cardiovascular Medicine VIRTUAL VIDEO VISIT ESTABLISHED OUTPATIENT VISIT SERVICE DATE: 01/10/2023 Patient: Jesus Sosa SERVICE TIME: 12:16 PM : 1950 This is a virtual video visit. It required patient-provider interaction for the medical decision making as documented below. Jesus Sosa has consented to this video encounter. I have communicated my name and active licensure. The patient's identity and physical location wereverified at the time of this visit. Either the patient or their legal solar sales representative has been informed of the risks and benefits of -- and alternatives to -- treatment through a remote evaluation andconsents to proceed with the evaluation remotely. Jesus Sosa is a 73 year old male seen for followup. CHIEF COMPLAINT Followup HISTORY OF PRESENT ILLNESS Jesus Sosa is a 73 year old male presenting for followup. CARDIAC & RELEVANT PAST HISTORY: Age 73 yo EF 61%, normal biventricular size/function, RVSP normal, no valvular disease, no PFO. RBBB, SR with SA, 1st degree AVB Large right pleural effusion, pending thoracentesis CAD with PCI x2 history (mLAD and Diag in 2018), scattered cor calcifications on non-con CT chest. Cath completed; patent stents, D1 large caliber vessel with a 90% focal stenosis off the first branch of the D1. LCX without concern. RCA with mild 30% focal stenosis. HLD, statin averse reaction (itching), on Praluent, LDL 83mg/dL VANESSA DURANT cirrhosis, ascites, s/p TIPS, thrombocytopenia, portal HTN, grade I EV in 2019. Dyspnea with hypoxemia on supplemental oxygen in setting of pleural effusion, improved symptoms post prior thoracentesis. CKD 3 Hx. CARDIAC MEDS: Aldactone 50mg Lasix 20mg ASA 81mg Praluent 150mg ASSESSMENT: Very pleasant 73 year old gentleman presenting with the above history and cardiovascular concerns. May have a living donor (niece). On room air, not very active given edema in LE and lung effusion. Historically able to walk around the grocery store, uses a riding mower to mow his yard. Echo showing preserved EF, no significant valvular disease. History of CAD, 2 prior stents in mLAD and diag. [facility] recently showing patent stents. A brand off a large caliber D1 vessel has a focal 90% lesion. Mild CAD of RCA. In my view, his current CAD state leads overall to intermediate to elevated but not prohibitive cardiac risk. PCI of side branch of D1 could be entertained though this would delay listing for 3-6 months given need for DAPT. Meld 3.0 of 17 as of 12/2022. Agree D1 branch is a large caliber vessel though on my review the side branch in question supplies a small territory of myocardium. Patient without active angina. EF preserved without resting RWMA. For proceeding with OLT evaluation and listing without further cardiac intervention. If concern by full committee, could be reviewed by the cardiac subcommittee for multidisciplinary weigh in. 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 Kelby Suarez. 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 Pleural effusion associated with hepatic disorder PMH - PAST MEDICAL HISTORY OF 1998 shingles without rash Portal vein thrombosis RBBB (right bundle branch block) 03/30/2009 Right inguinal hernia 10/03/2022 Skin cancer nose, face, ears Snoring Splenomegaly Stented coronary artery 07/18/2017 MICHELLE to diagonal and mid LAD. Tubular adenoma of colon 02/08/2017 Umbilical hernia 01/08/2014 Unspecified essential hypertension 04/02/2009 PAST SURGICAL HISTORY Procedure Laterality Date CC CORONARY STENT 07/18/2017 MICHELLE x 2 to mild LAD and diagonal COLONOSCOPY FLX DX W/COLLJ SPEC WHEN PFRMD 02/08/2017 Colonoscopy COLONOSCOPY FLX DX W/COLLJ SPEC WHEN PFRMD 01/07/2020 Colonoscopy CYSTOSCOPY 10/12/2020 EGD 02/01/2021 EGD 01/05/2022 ESOPHAGOGASTRODUODENOSCOPY TRANSORAL DIAGNOSTIC 01/07/2020 EGD INSERT HEPATIC SHUNT (TIPS) 09/20/2022 Transjugular Intrahepatic Portosystemic Shunt PARACENTESIS PROSTATE NEEDLE BIOPSY 05/19/2009 PROSTATE NEEDLE BIOPSY 01/02/2013 PROSTATECTOMY SUPRAPUBIC SUBTOTAL 1/2 STAGES 08/08/2021 + Umbilical hernia repair REMV CATARACT EXTRACAP,INSERT LENS 10/18/2020 10/04/20, 10/18/20 FAMILY HISTORY Problem Relation Age of Onset Arthritis Mother Heart Mother Pacemaker Stroke Mother w/ bowel obstruction Cancer Mother skin Heart Father Pacemaker Cancer Father skin Lipids Brother Lipids Brother Anesthesia Problems No Family History Social History Tobacco Use Smoking status: Former Types: Cigars Smokeless tobacco: Never Tobacco comments: Last cigar 07/17/2017 Vaping Use Vaping Use: Never used Substance Use Topics Alcohol use: Not Currently Alcohol/week: 5.0 standard drinks of alcohol Types: 1 Glasses of Wine (5oz), 1 Mixed Drinks per week Comment: may have a drink once per month Drug use: No ALLERGIES Allergen Reactions Oqhhtzc-Lfa-Pwh Red* Itching CURRENT MEDICATIONS spironolactone (ALDACTONE) 50 mg tablet Take 1 tablet by mouth once daily. Patient to take 1 tabletonce daily and double dose to 2 tablets every other day. furosemide (LASIX) 20 mg tablet Take 1 tablet by mouth once daily. Patient to take 1 tablet once daily and double dose to 2 tablets every other day. vitamin A (AQUASOL A) 10,000 unit capsule Take 1 capsule by mouth once daily. ergocalciferol 50,000 unit capsule (VITAMIN D2, DRISDOL) Take 1 capsule by mouth one time a week for 12 doses. Cholecalciferol, Vitamin D3, (VITAMIN D-3) 50 mcg (2,000 unit) cap Take 1 capsule by mouth once daily. alirocumab (PRALUENT PEN) 150 mg/mL Inject 150 mg subcutaneously every 2 weeks. Per cabbage salter.inplace of statin aspirin(ECOTRIN LOW STRENGTH 81 MG TAB) Take one(1) tablet daily. Entries in BOLD are positive ROS endorsed by the patient. REVIEW OF SYSTEMS: CONSTITUTIONAL: No weight loss, malaise or fevers. RESPIRATORY: Negative for cough, wheezing CARDIOVASCULAR: Negative for chest pain, leg swelling or palpitations ENDOCRINE: Negative for cold or heat intolerance PHYSICAL EXAMINATION: GENERAL: alert and appropriate, in no distress, well-hydrated, well nourished and happy, smiling, interactive RESPIRATORY: breathing non-labored and no grunting/flaring/retractions CHEST: equal chest rise with normal respiratory effort NEUROLOGIC: oriented and alert I personally spent 25 minutes in total time involved in the management and care of this patient. Emerson Chavez MD January 10, 2023 12:16 PM documented in this encounterKettering Health08-01-2023 NoteHNO ID: [id number] Author: Dunia Acuna RT(R) Service: ? Author Type: Wig Stylist Type: Progress Notes Filed: 2023 10:28 AM Note Text: Radiology Service Progress Note PATIENT NAME: Jesus Sosa DATE OF SERVICE: 2023 TIME: 10:28 AM PATIENT IDENTITY VERIFICATION COMPLETED USING TWO (2) IDENTIFIERS: Name and Date of confirmed by patient verbally and Name and Date of confirmed by identification band. FALL SCREENING: Has the patient had 2 falls in the last year or 1 fall with injury or currently using an Ambulatory Assistive Device (Walker, Cane, Wheelchair, Crutches, etc.)? No PATIENT GENDER DATA: Male PATIENT RELEVANT IMPLANT DATA REVIEWED: Not Applicable RADIOLOGY DEPARTMENT: Ultrasound PERIPHERAL IV DATA: Not applicable SIGNED BY: RT Kristin(Mejia) 2023 10:28 [id number] History of Present illness Narrative* Dunia Acuna RT(R) - 2023 9:00 AM EDT Radiology Service Progress Note PATIENT NAME: Jesus Sosa DATE OF SERVICE: 2023 TIME: 10:28 AM PATIENT IDENTITY VERIFICATION COMPLETED USING TWO (2) IDENTIFIERS: Name and Date of confirmedby patient verbally and Name and Date of confirmed by identification band. FALL SCREENING: Has the patient had 2 falls in the last year or 1 fall with injury or currently using an Ambulatory Assistive Device (Walker, Cane, Wheelchair, Crutches, etc.)? No PATIENT GENDER DATA: Male PATIENT RELEVANT IMPLANT DATA REVIEWED: Not Applicable RADIOLOGY DEPARTMENT: Ultrasound PERIPHERAL IV DATA: Not applicable SIGNED BY: RT Kristin(Mejia) 2023 10:28 AM documented in this encounterKettering Health07-30-2023 Miscellaneous Notes* Telephone Encounter - Randa Mix RN - 01/07/2023 11:14 AM EDT CARDIOVASCULAR LAB INSTRUCTIONS: Readiness to Learn: Cognitive Ability: Alert and oriented Motivation To Learn: Interested Family/Significant Other Support: Unable to assess - Family not present Instruction Provided To: Patient Patient Learns Best By: Verbal Instruction Factors Affecting Learning: None Physical Limitations Affecting Learning: None Learning Response: Procedure: Left Heart Diagnostic Pre procedure education topics: Arrival time/NPO Status/Medications/Travel Instructions/Restrictions Patient/Family Response Evaluation: Verbalizes understanding Follow Up Plan and Medication: As directed by physician Instruction/Supplemental Material Given: Cardiac catheterization instructions, procedure information, hospital information, hotel information. Instructed By Sergio Mix RN, RN. In Department of CARDIOLOGY. documented in this encounterKettering Health07-14-2023 Surgical operation note* Operative Report - Dani Ross MD - 12/22/2022 11:37 AM EDT THORACENTESIS NOTE SERVICE DATE: 12/22/2022 SERVICE TIME: 12:30 PM LOCATION: Outpatient PROCEDURE: Right Thoracentesis with Ultrasound guidance RECREATION MANAGER: Dani Ross MD AND DRYING SUPERVISOR COOKING CASING: NONE REFERRING PHYSICIAN/SERVICE Liver service PRE - PROCEDURE DIAGNOSIS: Hepatic Hydrothorax POST PROCEDURE DIAGNOSIS: Hepatic Hydrothorax INDICATION: Diagnostic and Therapeutic SAFE PRACTICE: Informed consent obtained and filed in patient's chart. SAFE PRACTICE Sign in Communication: Completed. Time Out: The procedural team confirmed the Correct Patient, the Correct Procedure, the Correct Site and the Correct Position (if applicable) during the audible time out: Completed. Sign Out Communication: Completed. PROCEDURE START TIME: 1148 IMAGING GUIDANCE: Ultrasound was used. Images were recorded. ULTRASOUND FINDINGS: The Right chest was scanned using ultrasound. A large sized effusion was seen. Septations: Absent. Pleural nodules: Absent. Pleural thickening was Absent. ANESTHESIA: Local, using 10 ml of 1% Lidocaine. SEDATION: No PROCEDURE DETAIL: After scanning the chest the appropriate site for thoracentesis was marked and was prepped using Chlorhexidine Gluconate Local anesthesia was administered. A standard thoracentesis needle and catheter were advanced into the right fluid collection without any difficulty. Once the fluid collection was found, the catheter was advanced further into the pleural space, the needle was removed, and drainage was initiated using a wall suction method. Once drainage was completed the catheter was removed and the site was bandaged. The fluid was sent to the lab for further analysis. FLUID COLOR: Serous TOTAL FLUID REMOVED: 3500 mL THORACENTESIS PRESSURES: Intrapleural pressures not measured. PROCEDURE END TIME: 1224 PROCEDURE TERMINATED DUE TO: Cough IMMEDIATE COMPLICATIONS: None POST PROCEDURE ULTRASOUND: not done IMPRESSION: Completed Right thoracentesis with approximately 3500 mL of fluid withdrawal. Estimatedblood loss: Minimal. SIGNATURE: Dani Ross MD PATIENT NAME: Jesus Sosa DATE: December 22, 2022 TIME: 12:29 PM PAGER/CONTACT #: documented in this encounterKettering Health07-13-2023 Miscellaneous Notes* Telephone Encounter - Krissy Horn RN - 12/21/2022 10:08 AM EDT Patient provided dermatology clearance letter completed by local senior data integration developer. Pt seen 11/07/22 andis free from active disease and infection, no cutaneous contraindications for liver treatment at this time. Dermatology office phone [phone] Form in file. Krissy Horn RN documented in this encounterKettering Health07-11-2023 History of Present illness Narrative* Emerson Chavez MD - 12/19/2022 1:17 PM EDT [facility] [place] Department of Cardiovascular Medicine VIRTUAL VIDEO VISIT NEW OUTPATIENT VISIT SERVICE DATE: 12/19/2022 Patient: Jesus Sosa SERVICE TIME: 1:17 PM : 1950 This is a virtual video visit. It required patient-provider interaction for the medical decision making as documented below. Jesus Sosa has consented to this video encounter. I have communicated my name and active licensure. The patient's identity and physical location wereverified at the time of this visit. Either the patient or their legal solar sales representative has been informed of the risks and benefits of -- and alternatives to -- treatment through a remote evaluation andconsents to proceed with the evaluation remotely. Patient physically residing in [place] at time of virtual encounter. CHIEF COMPLAINT Liver preop evaluation HISTORY OF PRESENT ILLNESS Jesus Sosa is a 72 year old male presenting for cardiac evaluation. CARDIAC & RELEVANT PAST HISTORY: Age 72 yo EF 61%, normal biventricular size/function, RVSP normal, no valvular disease, no PFO. RBBB, SR with SA, 1st degree AVB Large right pleural effusion, pending thoracentesis CAD with PCI x2 history (mLAD and Diag in 2018), scattered cor calcifications on non-con CT chest. HLD, statin averse reaction (itching), on Praluent, LDL 83mg/dL VANESSA DURANT cirrhosis, ascites, s/p TIPS, thrombocytopenia, portal HTN, grade I EV in 2019. Dyspnea with hypoxemia on supplemental oxygen in setting of pleural effusion, improved symptoms post prior thoracentesis. CKD 3 Hx. CARDIAC MEDS: Aldactone 50mg Lasix 20mg ASA 81mg Praluent 150mg ASSESSMENT: Very pleasant 72 year old gentleman presenting with the above history and cardiovascular concerns. Based on a shared multidisciplinary liver transplant team guideline, unless absolute contraindication exists, patients over age 6060 years old and/or those with history of coronary disease or CAD risk factors should have a recent coronary angiogram defining coronary anatomy prior to any considerationfor OLT evaluation by the transplant committee. Coronary angiogram order has been placed. Pending no evidence of high-risk lesions or multivessel disease, patient should be at acceptable cardiovascular risk to proceed with OLT consideration. On room air, not very active given edema in LE and lung effusion. Was able to walk around the grocery store, uses a riding mower to mow his yard today. Echo showing preserved EF, no significant valvular INR 1.2 Plt 153k Creat 1.27 PLAN: Cor angiogram ordered; no need for RHC at same time. Followup ordered. PAST MEDICAL HISTORY Diagnosis Date Abnormal LFTs (liver function tests) 06/27/2013 F/U [facility] Arthritis Ascites Asthma Bladder neck obstruction 05/26/2009 BPH with obstruction/lower urinary tract symptoms BPH with obstruction/lower urinary tract symptoms 08/24/2008 Chronic prostatitis 05/26/2009 CKD (chronic kidney disease) Coronary artery disease Elevated prostate specific antigen (PSA) 07/19/2007 Esophageal reflux 1998 admitted for chest pain Esophageal varices (HCC) Essential hypertension 04/02/2009 Former cigar smoker Hepatic fibrosis (HCC) on elastography 02/09/2018 Dr. Kelby Suarez. 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 Pleural effusion associated with hepatic disorder PMH - PAST MEDICAL HISTORY OF 1998 shingles without rash Portal vein thrombosis RBBB (right bundle branch block) 03/30/2009 Right inguinal hernia 10/03/2022 Skin cancer nose, face, ears Snoring Splenomegaly Stented coronary artery 07/18/2017 MICHELLE to diagonal and mid LAD. Tubular adenoma of colon 02/08/2017 Umbilical hernia 01/08/2014 Unspecified essential hypertension 04/02/2009 PAST SURGICAL HISTORY Procedure Laterality Date CC CORONARY STENT 07/18/2017 MICHELLE x 2 to mild LAD and diagonal COLONOSCOPY FLX DX W/COLLJ SPEC WHEN PFRMD 02/08/2017 Colonoscopy COLONOSCOPY FLX DX W/COLLJ SPEC WHEN PFRMD 01/07/2020 Colonoscopy CYSTOSCOPY 10/12/2020 EGD 02/01/2021 EGD 01/05/2022 ESOPHAGOGASTRODUODENOSCOPY TRANSORAL DIAGNOSTIC 01/07/2020 EGD INSERT HEPATIC SHUNT (TIPS) 09/20/2022 Transjugular Intrahepatic Portosystemic Shunt PARACENTESIS PROSTATE NEEDLE BIOPSY 05/19/2009 PROSTATE NEEDLE BIOPSY 01/02/2013 PROSTATECTOMY SUPRAPUBIC SUBTOTAL 1/2 STAGES 08/08/2021 + Umbilical hernia repair REMV CATARACT EXTRACAP,INSERT LENS 10/18/2020 10/04/20, 10/18/20 FAMILY HISTORY Problem Relation Age of Onset Arthritis Mother Heart Mother Pacemaker Stroke Mother w/ bowel obstruction Cancer Mother skin Heart Father Pacemaker Cancer Father skin Lipids Brother Lipids Brother Anesthesia Problems No Family History Social History Tobacco Use Smoking status: Former Types: Cigars Smokeless tobacco: Never Tobacco comments: Last cigar 07/17/2017 Vaping Use Vaping Use: Never used Substance Use Topics Alcohol use: Not Currently Alcohol/week: 5.0 standard drinks of alcohol Types: 1 Glasses of Wine (5oz), 1 Mixed Drinks per week Comment: may have a drink once per month Drug use: No ALLERGIES Allergen Reactions Mkgdjzq-Mxi-Nst Red* Itching CURRENT MEDICATIONS spironolactone (ALDACTONE) 50 mg tablet Take 1 tablet by mouth every other day. furosemide (LASIX) 20 mg tablet Take 1 tablet by mouth every other day. vitamin A (AQUASOL A) 10,000 unit capsule Take 1 capsule by mouth once daily. ergocalciferol 50,000 unit capsule (VITAMIN D2, DRISDOL) Take 1 capsule by mouth one time a week for 12 doses. Cholecalciferol, Vitamin D3, (VITAMIN D-3) 50 mcg (2,000 unit) cap Take 1 capsule by mouth once daily. alirocumab (PRALUENT PEN) 150 mg/mL Inject 150 mg subcutaneously every 2 weeks. Per cabbage salter.inplace of statin aspirin(ECOTRIN LOW STRENGTH 81 MG TAB) Take one(1) tablet daily. Entries in BOLD are positive ROS endorsed by the patient. REVIEW OF SYSTEMS: CONSTITUTIONAL: No weight loss, malaise or fevers. RESPIRATORY: Negative for cough, wheezing CARDIOVASCULAR: Negative for chest pain, leg swelling or palpitations ENDOCRINE: Negative for cold or heat intolerance PHYSICAL EXAMINATION: GENERAL: alert and appropriate, in no distress, well-hydrated, well nourished and happy, smiling, interactive RESPIRATORY: breathing non-labored and no grunting/flaring/retractions CHEST: equal chest rise with normal respiratory effort NEUROLOGIC: oriented and alert I personally spent 35 minutes in total time involved in the management and care of this patient. Emerson Chavez MD December 19, 2022 1:17 PM documented in this encounterKettering Health07-10-2023 History of Present illness Narrative* Florence Baez RN - 12/18/2022 11:50 AM EDT [facility] Telephonic Outreach Provider Action/FYI CKD monthly Contacted for: Routine Telephonic Outreach Contact made with patient: Yes Patient identified by name and date of . Discussed care with patient Are you experiencing any new or worsening symptoms you need to talk about today? No Disease Specific Do you have new or worsening shortness of breath with activity? No Do you feel like you are dehydrated for any reason, including not being able to eat or drink normally, or having less urine/much darker urine than normal for you? Yes Do you check your daily weight at home? Yes, Have you noticed a sudden gain in weight greater than three pounds in a day or three pounds in a week? No Based on paper products supervisor, the following disposition is advised: No symptoms or symptoms present, not severe. Routed to: No Action Needed NILSON Education Provided this Outreach: No -continues to aj with massive edema throughout lower body which is limiting his ability to do things as he normally would. -has thoracentesis this Sunday and is happy that it is Sunday as he has a graduation libertarian to attend in the evening but remains about every 10 days at this time -still has lactulose on hand but has not used. Florence Baez RN December 18, 2022 documented in this encounterKettering Health07-06-2023 Miscellaneous Notes* Telephone Encounter - Leonila Kruger - 12/14/2022 4:21 PM EDT December 14, 2022 Phoned patient to change his appt. Dr. Chavez is no longer available 12/22. Changed to 12/19 @ 2pm Virtual Visit. (Camron tried calling several times in my absence as well with no answer) Sent My Chart with updated information. Leonila Kruger December 14, 2022 4:42 PM documented in this encounterKettering Health07-03-2023 Miscellaneous Notes* Telephone Encounter - Katerine Velasquez RN - 12/11/2022 3:51 PM EDT Pt sent the following MCM regarding refills: My dieurets prescription will runout 12-20-22. I tried to refill using my chart but those two prescriptions are locked. Could have Dr Gomez sent in a new one to the local [facility]? Thanks, Mango Orders pended. Please review and advise. Katerine Velasquez RN December 11, 2022 3:52 PM documented in this encounterKettering Health06-15-2023 Surgical operation note* Operative Report - Bisi Langston MD - 11/23/2022 8:54 AM EDT THORACENTESIS NOTE SERVICE DATE: November 23, 2022 SERVICE TIME: 09:10 LOCATION: [facility] PROCEDURE: Right Thoracentesis with Ultrasound guidance RECREATION MANAGER: Bisi Langston MD; Gloria Calero MD AND DRYING SUPERVISOR COOKING CASING: none REFERRING PHYSICIAN/SERVICE Pulmonary PRE - PROCEDURE DIAGNOSIS: Pleural effusion POST PROCEDURE DIAGNOSIS: Pleural effusion INDICATION: Diagnostic and therapeutic SAFE PRACTICE: Informed consent obtained and filed in patient's chart. SAFE PRACTICE Sign in Communication: Completed. Time Out: The procedural team confirmed the Correct Patient, the Correct Procedure, the Correct Site and the Correct Position (if applicable) during the audible time out: Completed. Sign Out Communication: Completed. PROCEDURE START TIME: 916 IMAGING GUIDANCE: Ultrasound was used. Images were not recorded ULTRASOUND FINDINGS: The R chest was scanned using ultrasound. A moderate-sized effusion was seen. Septations: Absent. Pleural nodules: Absent. Pleural thickening was Absent. ANESTHESIA: Local, using 10ml of 1% Lidocaine. SEDATION: No PROCEDURE DETAIL: After scanning the chest the appropriate site for thoracentesis was marked and was prepped using Chlorhexidine Gluconate Local anesthesia was administered. A standard thoracentesis needle and catheter were advanced into the left fluid collection without any difficulty. Once the fluid collection was found, the catheter was advanced further into the pleural space, the needle was removed, and drainage was initiated using a syringe pump method. Once drainage was completed the catheter was removed and the site was bandaged. The fluid was sent to the lab for further analysis. FLUID COLOR: serous TOTAL FLUID REMOVED: 3400ml THORACENTESIS PRESSURES: Intrapleural pressures not measured. PROCEDURE END TIME: 954 PROCEDURE TERMINATED DUE TO: No further drainage IMMEDIATE COMPLICATIONS: None POST PROCEDURE ULTRASOUND: yes- shows lung sliding, IMPRESSION: Completed Left thoracentesis with approximately 3400 mL of fluid withdrawal. Estimated blood loss: Minimal. Bisi Langston MD Critical Care Medicine Fellow Associated attestation - Gloria Calero MD - 11/23/2022 3:57 PM EDT Pulm Staff: I was present for and supervised the entire procedure. Gloria Calero MD November 23, 2022 3:57 PM documented in this encounterKettering Health06-07-2023 History of Present illness Narrative* Tevin De La Cruz MD - 11/15/2022 8:32 AM EDT VIRTUAL VISIT PROGRESS NOTE This is a virtual visit using TraktoPROhart video visit. It required patient-provider interaction for themedical decision making as documented below. I have communicated my name and active licensure. The patient's identity and physical location wereverified at the time of this visit. Either the patient or their legal solar sales representative has been informed of the risks and benefits of -- and alternatives to -- treatment through a remote evaluation andconsents to proceed with the evaluation remotely. 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, seen last 07/17/22 Remainder of past medical history is significant for: -h/o hyperlipidemia, dx'ed ~ 6 yrs -h/o hypertension, diagnosed ~ 5 -6 yrs -h/o glucose intolerance -h/o coronary artery disease / [place] -s/p PCI to LAD / Cx 2018 done at [place] [facility] -> on plavix x 3 yrs -h/o obesity; max weight ~ 220 (~ current); prev eval by dance coach in [place] -h/o obstructive sleep apnea - on CPAP x ~ 1 yr -h/o colon polyps 01/2017; last colonoscopy 12/2019 w no polyps -h/o tobacco abuse: ~ 19-> cigars intermittently-> 67 -h/o BPH -h/o hematuria -s/p CT urogram, f/b cystoscopy 10/12/2020 -h/o CKD, stage 3 -s/p robotic assisted laparoscopic suprapubic prostatectomy, umbilical hernia repair 08/08/2021 -told hernia repair did not hold, and would need Mesh for repair Liver disease has been complicated by: -portal hypertension -CKD -gr I EV found on index endoscopy 01/07/20 -Stage 3a chronic kidney disease - SOB, SOBOE / hypoxemia w pulse ox 88% -> on 6L, w moderate to large right pleural effusion -s/p thoracentesis 06/14 x 2L, along w para x 3L -> w no further SOB -s/p repeat thoracentesis done 06/22 x 3600 mL Since last seen - Admitted 09/20-09/27/22 for portal HTN/elective TIPS procedure 09/20/22. Per d/c summary HOSPITAL COURSE: 72 year old male PMH significant for DURANT c/b pHTN, PVT, esophageal varices, ascites (LVP), HHT(thoracentesis), CKD Stage III, VANESSA (on CPAP), CAD s/p PCI (LAD and Cx in 2018), HTN, HLD, colonic polyps, glucose intolerance, BPH, s/p robotic assisted laparoscopic suprapubic prostatectomy, umbilical hernia repair 08/08/2021, who presented for an elective TIPS procedure 09/20/2022 for refractory ascites and was admitted to Hepatology for monitoring overnight 09/20/2022. 09/20/22 underwent elective TIPS placement with reduction of portosystemic gradient from 19 mmHg to 5 mmHg. TIPS was placed from the left hepatic vein to left portal vein. Total 3 L of fluid from the peritoneal cavity and 1.5 L from the right pleural space drained. Chest tube was left in place as there was significant amount of fluid in the right space (estimated 7L). Chest tube output was drainedper IR recommendations, with high output. Thoracic was consulted to manage the chest tube, deferredto IR and recommended removal as quickly as possible. CXR 09/22 with c/f for moderate pneumothorax. Discussed with IR and pigtail placed to waterseal, no bubbles, not suggestive of air leak, suggesting lung has not fully re-expanded. IR recommended a clamp challenge of chest tube which was completed09/22, patient tolerated and had removal of chest pigtail 09/23. Follow up CXR were stable, the pulmonary team was consulted 09/25 and felt the patient had an entrapped lung with no further interventionneeded, recommended repeat CXR in one week and PRN thoracentesis if needed with discharge as long as pneumothorax pocket remained stable. Serial CXRs following removal of pigtail with with stable apical air pocket, with moderate right pleural effusion. Patient remained stable on room air. Per Pulmonary team, okay for discharge, with plan to repeat CXR 10/03 after discharge or sooner if changes in respiratory status. Patient given dress operator contact information for any questions that may arise. TIPS procedure sites with IJ and right chest monitored, with clean, dry, intact bandages without bleeding, ecchymosis or swelling. Labs monitored without significant rise in liver biochemistries, INR1.4-->1.2. Leukocytosis evening 09/21 with improvement on repeat CBC wbc 15-->11 with no s/s infection, leukocytosis resolved on 09/23. A post TIPS ultrasound was completed and reviewed by IR, TIPS patent. Patient clinically with fluid overload b/l LE edema, and groin swelling for which he was educated on low sodium diet, ordered scrotal support, b/l JOHNNA wraps and heel boots Diuretics held given BOBY. BOBY with Scr 1.78 on admission (baseline 1.2 in June) with rise to 2.03. Report of hypotension during TIPS requiring hydralazine, Home Coreg, lasix and aldactone held on admission given hypotension. kidney US obtained with calculi or hydronephrosis, urine lytes and UA WNL. Received albumin challenge x 2 days. Briefly low dose midodrine. Creatinine, with improvement to SCr 1.55 on day of discharge. Was found to be hyperkalemic on 09/26, received two hyperkalemia treatments with resolution -s/pTIPS 09/20/22 with reduction of portosystemic gradient from 19 mmHg to 5 -seen in followup in liver clinic by Brandie Jiang 10/16/22 Per notes Admitted 09/20-09/27/22 for portal HTN/elective TIPS procedure 09/20/22. Formerly, paracentesis [id number] with about 2 L removed at each session. Thoracentesis [id number] with about 3 L removed. BOBY on admission (Scr 1.78), ruba to 2.03 Received albumin challenge x2 days, briefly low dose midodrine Cr improved to 1.55 on discharge. Since hospital discharge: Overall, feeling great s/p TIPs but complains of major swelling in scrotum and arms. I cannot walkand would rather get this taken care of if it means holding off on transplant evaluation at this time. Thoracentesis about 1 week ago with 3 L removed. Has been taking Lasix and Spironolactone every other day since last Sunday. Liver trxp evaluation opened. Will be undergoing several appts this week. EV: Denies. Last EGD 01/05/22 with Grade I Evs, severe portal hypertensive gastropathy. Small hiatalhernia. Ascites: Reports increased scrotal swelling. On Lasix 20 mg and Spironolactone 50 mg every other day 72 year old year old male with PMHx DURANT c/b pHTN, PVT, esophageal varices, ascites (LVP), HHT(thoracentesis), CKD Stage III, VANESSA (on CPAP), CAD s/p PCI (LAD and Cx in 2018), HTN, HLD, colonic polyps, glucose intolerance, BPH, s/p robotic assisted laparoscopic suprapubic prostatectomy, umbilical hernia repair 08/08/2021 who presents for DURANT cirrhosis hospital discharge follow up s/p TIPS procedure 09/20/22, BOBY during admission. With patent TIPS on LVUS 09/25/12; however, Segmental occlusion of the middle hepatic vein with reversal of flow of the MHV peripheral to the occlusion. Will order LVUS to be completed this week. His Cr has down trended but remains elevated at 1.49. While he complains of swelling, I discussed with him that I spoke with Dr. De La Cruz and we recommend remaining on current dosing of diuretics every other day for now given renal function with hopes to increase diuretics as his renal function improves. Discussed importance of fluid restriction and low Na diet. With current MELD score of 17, he will be undergoing many appts for liver transplant evaluation. PLAN DURANT cirrhosis - decompensated with ascites s/p TIPS procedure 09/20/22 - current MELD of 17. Liver trxp evaluation opened EV: Last EGD 01/05/22 with Grade I Evs, severe portal hypertensive gastropathy. Small hiatal hernia.Now s/p TIPS 09/20/22. Ascites: At patient's request, discussed with Dr. De La Cruz who agrees to not increase diuretics givenCr 1.55. To continue with Lasix 20 mg and Spironolactone 50 mg every other day. <2,000mg Na diet advised. HE: No issues. Advised limited red meat. High-protein snack at night. HCC screening: UTD with LVUS 09/25/22 with no lesions. With patent TIPS. With Segmental occlusion of the middle hepatic vein with reversal of flow of the MHV peripheral to the occlusion. -still having SOB - getting thora q 10 days - 2 weeks, usu ~ 3L -had been up several times for para but insufficient fluid - 11/10/22, 10/25/22 (w marginal pocket 10/06/22) -s/p liver dopplers done 09/25/22 IMPRESSION: Patent TIPS. Patent portal veins, with appropriately directed flow, although the main, right anterior, and right posterior portal veins are diminutive in caliber. Segmental occlusion of the middle hepatic vein with reversal of flow of the MHV peripheral to the occlusion. Cirrhosis and ascites. No liver lesion. -s/p CT scan of chest 10/18/2022 IMPRESSION: - Large right pleural effusion with right lower lobe collapse and right middle lobe subsegmental atelectasis. Significant improvement of the air component in the right pleural effusion/hydropneumothorax present on 10/09/2022 chest radiograph with minimal residual air. Medium left pleural effusion with adjacent basilar atelectasis. - Liver cirrhosis with signs of portal hypertension, mild splenomegaly and partially imaged medium volume ascites -s/p liver dopplers done 10/26/22 IMPRESSION: PATENT TIPS. PATENT HEPATIC VASCULATURE WITH APPROPRIATELY DIRECTED FLOW. However, peak systolic velocities within the TIPS are greater than previous. Retrograde flow seen within the splenic vein at the hilus. CIRRHOTIC LIVER MORPHOLOGY. NO HEPATIC LESION. Cholelithiasis and gallbladder sludge with wall thickening as seen previously Trace ascites and small bilateral pleural effusions -having some problems w mental health - feeling overwhelmed - but per , a little bit of confusion (5% or less) -still swollen legs, scrotum, but even in hands -> better in AM -dry weight post thora ~ 218 -> w SOB at 224# -staying on lasix 20 mg/d + aldactone 50 mg/d -sticking to a low salt diet - 1500 - 1800 mg/d -completing OLT eval - awaiting appt for cardiology HISTORY REVIEWED (electronic chart updated): PAST MEDICAL HISTORY Diagnosis Date Abnormal LFTs (liver function tests) 06/27/2013 F/U [facility] Arthritis Ascites Asthma Bladder neck obstruction 05/26/2009 BPH with obstruction/lower urinary tract symptoms BPH with obstruction/lower urinary tract symptoms 08/24/2008 Chronic prostatitis 05/26/2009 CKD (chronic kidney disease) Coronary artery disease Elevated prostate specific antigen (PSA) 07/19/2007 Esophageal reflux 1999 admitted for chest pain Esophageal varices (HCC) Essential hypertension 04/02/2009 Former cigar smoker Hepatic fibrosis (HCC) on elastography 02/09/2018 Dr. Kelby Suarez. 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 Pleural effusion associated with hepatic disorder PMH - PAST MEDICAL HISTORY OF 1998 shingles without rash Portal vein thrombosis RBBB (right bundle branch block) 03/30/2009 Right inguinal hernia 10/03/2022 Skin cancer nose, face, ears Snoring Splenomegaly Stented coronary artery 07/18/2017 MICHELLE to diagonal and mid LAD. Tubular adenoma of colon 02/08/2017 Umbilical hernia 01/08/2014 Unspecified essential hypertension 04/02/2009 PAST SURGICAL HISTORY Procedure Laterality Date CC CORONARY STENT 07/18/2017 MICHELLE x 2 to mild LAD and diagonal COLONOSCOPY FLX DX W/COLLJ SPEC WHEN PFRMD 02/08/2017 Colonoscopy COLONOSCOPY FLX DX W/COLLJ SPEC WHEN PFRMD 01/07/2020 Colonoscopy CYSTOSCOPY 10/12/2020 EGD 02/01/2021 EGD 01/05/2022 ESOPHAGOGASTRODUODENOSCOPY TRANSORAL DIAGNOSTIC 01/07/2020 EGD INSERT HEPATIC SHUNT (TIPS) 09/20/2022 Transjugular Intrahepatic Portosystemic Shunt PARACENTESIS PROSTATE NEEDLE BIOPSY 05/19/2009 PROSTATE NEEDLE BIOPSY 01/02/2013 PROSTATECTOMY SUPRAPUBIC SUBTOTAL 1/2 STAGES 08/08/2021 + Umbilical hernia repair REMV CATARACT EXTRACAP,INSERT LENS 10/18/2020 10/04/20, 10/18/20 FAMILY HISTORY Problem Relation Age of Onset Arthritis Mother Heart Mother Pacemaker Stroke Mother w/ bowel obstruction Cancer Mother skin Heart Father Pacemaker Cancer Father skin Lipids Brother Lipids Brother Anesthesia Problems No Family History Social History Tobacco Use Smoking status: Former Types: Cigars Smokeless tobacco: Never Tobacco comments: Last cigar 07/17/2017 Vaping Use Vaping Use: Never used Substance Use Topics Alcohol use: Not Currently Alcohol/week: 5.0 standard drinks Types: 1 Glasses of Wine (5oz), 1 Mixed Drinks per week Comment: may have a drink once per month Drug use: No Current Outpatient Medications Medication Sig vitamin A (AQUASOL A) 10,000 unit capsule Take 1 capsule by mouth once daily. ergocalciferol 50,000 unit capsule (VITAMIN D2, DRISDOL) Take 1 capsule by mouth one time a week for 12 doses. spironolactone (ALDACTONE) 50 mg tablet Take 50 mg by mouth every other day. furosemide (LASIX) 20 mg tablet Take 20 mg by mouth every other day. Cholecalciferol, Vitamin D3, (VITAMIN D-3) 50 mcg (2,000 unit) cap Take 1 capsule by mouth once daily. alirocumab (PRALUENT PEN) 150 mg/mL Inject 150 mg subcutaneously every 2 weeks. Per cabbage salter.inplace of statin aspirin(ECOTRIN LOW STRENGTH 81 MG TAB) Take one(1) tablet daily. No current facility-administered medications for this visit. ALLERGIES Allergen Reactions Nfohpqs-Inm-Bmh Red* Itching REVIEW OF SYSTEMS: As noted in HPI PHYSICAL EXAMINATION: VIDEO EXAM: (if completed, performed via video enabled technology) No exam performed ASSESSMENT: 72 yo man with ESLD secondary to DURANT (diagnosed on imaging), in context of multiple risk factors for the metabolic syndrome (hypertension, hypertriglyceridemia, glucose intolerance, girth) Course has been c/b portal Htn, EV /severe PHG on last endoscopy, ascites, and hepatic hydrothorax s/p serial paracentesis, as well as thoracenteses Now, status post TIPs, with significant drop in hepatic venous pressure gradient, with post TIPS complications of acute kidney injury, requiring several day hospital stay for albumin + midodrine withimprovement-unfortunately, has still had slow response however of fluid, with ongoing need for intermittent thoracentesis. Began OLT evaluation, given bump in MELD score (in the past, driven in part by CKD as well as unconjugated hyperbilirubinemia). Ascites apparently improved, along with BOBY, however but still lower extremity edema and pleural effusions Very mild change in mental status Long discussion today regarding issues and options PLAN: Suggested: 1. Fluid overload -Continue with 2 g sodium diet, along with daily weights - We will plan to increase diuretics, with every other day double dose, following symptoms - Repeat labs in ~2 weeks - Based on trajectory-given results of liver vasc dopplers, will need to to decide on option of revision of TIPs-but given mild encephalopathy, would prefer to hold off for now 2. ? Hepatic encephalopathy - Trial of lactulose 3. Cirrhosis/OLT -Evaluation ongoing Follow-up on the phone in ~2-3 weeks, with repeat labs around that timeframe RTC ~3-4 months Tevin De La Cruz MD documented [facility] encounterK[facility] Surgical operation note* Operative Report - Holly Shell MD - 11/13/2022 10:20 AM EDT THORACENTESIS NOTE SERVICE DATE: 11/13/2022 SERVICE TIME: 10:46 AM LOCATION: Outpatient PROCEDURE: Right Thoracentesis with Ultrasound guidance RECREATION MANAGER: Holly Shell MD AND DRYING SUPERVISOR COOKING CASING: NONE REFERRING PHYSICIAN/SERVICE Hepatology PRE - PROCEDURE DIAGNOSIS: Hepatic Hydrothorax POST PROCEDURE DIAGNOSIS: Hepatic Hydrothorax INDICATION: Therapeutic SAFE PRACTICE: Informed consent obtained and filed in patient's chart. SAFE PRACTICE Sign in Communication: Completed. Time Out: The procedural team confirmed the Correct Patient, the Correct Procedure, the Correct Site and the Correct Position (if applicable) during the audible time out: Completed. Sign Out Communication: Completed. PROCEDURE START TIME: 10:41 AM IMAGING GUIDANCE: Ultrasound was used. Images were recorded. ULTRASOUND FINDINGS: The Right chest was scanned using ultrasound. A large sized effusion was seen. Septations: Absent. Pleural nodules: Absent. Pleural thickening was Absent. ANESTHESIA: Local, using 10 ml of 1% Lidocaine. SEDATION: No PROCEDURE DETAIL: After scanning the chest the appropriate site for thoracentesis was marked and was prepped using Chlorhexidine Gluconate Local anesthesia was administered. A standard thoracentesis needle and catheter were advanced into the right fluid collection without any difficulty. Once the fluid collection was found, the catheter was advanced further into the pleural space, the needle was removed, and drainage was initiated using a wall suction method. Once drainage was completed the catheter was removed and the site was bandaged. The fluid was sent to the lab for further analysis. FLUID COLOR: Serous TOTAL FLUID REMOVED: 3000 mL THORACENTESIS PRESSURES: Intrapleural pressures not measured. PROCEDURE END TIME: 10:57 AM PROCEDURE TERMINATED DUE TO: Pain IMMEDIATE COMPLICATIONS: None POST PROCEDURE ULTRASOUND: not done IMPRESSION: Completed Right thoracentesis with approximately 2000 mL of fluid withdrawal. Estimatedblood loss: Minimal. SIGNATURE: Holly Shell MD PATIENT NAME: Jesus Sosa DATE: November 13, 2022 TIME: 10:46 AM PAGER/CONTACT #: documented in this encounterK[facility]06-[facility]23 Nurse Note* Sharmaine Schwartz RN - 11/10/2022 8:54 AM EDT Ultrasound only. No paracentesis performed. * Sharmaine Schwartz RN - 11/10/2022 8:51 AM EDT PRE OP LEARNING ASSESSMENT PROCEDURE/SURGERY: GI PROCEDURES: paracentesis READINESS TO LEARN COGNITIVE ABILITY: Alert and oriented MOTIVATION TO LEARN: Eager Interested FAMILY SUPPORT: Unable to assess - Family not present PATIENT LEARNS BEST BY: Individual Instruction FACTORS AFFECTING LEARNING: None PHYSICAL LIMITATIONS AFFECTING LEARNING: None Electronically Signed By: Sharmaine Schwartz RN In Department: GASTROENTEROLOGY documented in this encounterK[facility]06-01-2023 Miscellaneous Notes* Telephone Encounter - Katerine Velasquez RN - 11/09/2022 8:20 AM EDT Pt sent MCM requesting prescription vitamins be sent to alternative pharmacy due to insurance coverage. Orders pended with new pharmacy. Message sent to Dr. De La Cruz for review. Katerine Velasquez RN November 09, 2022 8:21 AM documented in this encounterK[facility]05-23-2023 Miscellaneous Notes* Telephone Encounter - Yane Miller APRN.CNP - 10/31/2022 4:12 PM EDT INTERVENTIONAL RADIOLOGY PATIENT APPOINTMENT REQUEST October 31, 2022 Jesus Sosa [id number] Request: Schedule Requestor: Yane Miller APRN.CNP Ref.Physician:DR CARMELLA BONILLA Physician: DR LEE Procedure/Request: LIVER US Reason/ICD Code: S/P TIPS Priority: routine Scheduling Comments: SCHEDULE IN 01/2023 Does MD need to be present for consult?: N/A IR Procedure Room: N/A Equipment or Vendor Request: No / N/A Anticipated length of procedure (not including prep or Anesthesia): NA Pre-Procedure Orders: Ultrasound LIVER VASCULAR Sedation: NA Bed Reservation: NA Location of Procedure: ANY [facility] LOCATION documented in this encounterK[facility]05-12-2023 Miscellaneous Notes* Telephone Encounter - Tevin De La Cruz MD - 10/20/2022 3:07 PM EDT Katerine Can you please return the call, and let him know: I think that he will ultimately need intermittent drainage - because I don't think his kidney function will allow us to increase doses indefinitely That said - his last creatinine was better than baseline I think he could double his doses (of lasix and aldactone), continue on the low salt diet, daily weights Thanks * Telephone Encounter - Katerine Velasquez RN - 10/20/2022 1:12 PM EDT Pt sent the following MCM: Tuesday, October 11, 2022 127/59 75 201.8 'diuretics every other day October 134/64 84 205.2 Thursday, October 13, 2022 130/63 80 206.8 diuretics Friday, October 14, 2022 125/58 83 205.6# Saturday, October 15, 2022 127/62 87 209.2# diuretics Sunday, October 16, 2022 Monday, October 17, 2022 129/64 72 diuretics Tuesday, October 18, 2022 138/65 78 212.6# October diuretics Thursday, October 20, 2022 121/59 71 217# These are the latest weights and BP I have got since starting the diuretics. As you can see the weight keeps increasing with the increase in swelling. I have a Thoro schedules for next in [place] after the ultra sound in [place]. Katerine Velasquez RN October 20, 2022 1:12 PM documented in this encounterK[facility]05-12-2023 Miscellaneous Notes* Telephone Encounter - Rogelio Live - 10/20/2022 2:54 PM EDT Patient left a voicemail for his txp coord, Krissy Horn. He would like to see if he can be scheduled for a paracentesis for next Sunday, 10/27? Mango can be reached at [phone]. documented in this encounterK[facility]05-12-2023 Miscellaneous Notes* Telephone Encounter - Katerine Velasquez RN - 10/20/2022 11:46 AM EDT Received message from the pharmacy that this medication is only available in packs of 100 capsules. Please review and advise. Katerine Velasquez RN October 20, 2022 11:48 AM documented in this encounterK[facility]05-10-2023 History of Present illness Narrative* Matt Lopez MD - 10/18/2022 2:42 PM EDT INFECTIOUS DISEASE LIVER PRETRANSPLANT EVALUATION SERVICE DATE: 10/18/2022 Patient is seen at the request of Dr. Tevin De La Cruz for my opinion regarding liver transplant. My final recommendations will be communicated back to the requesting physician by way of shared medial record. Subjective HISTORY OF PRESENT ILLNESS: Mr. Jesus Sosa is a 72 year old gentleman being evaluated for liver transplantation. He has a h/o DURANT cirrhosis, TIPS, VANESSA, CAD, and CKD. Infectious disease history includes hospital admission when he was in his 20's for infectious mononucleosis, UTI after prostate surgery, and shingles many years ago. No antibiotic allergies. No fever. Has SOB and swelling. Feels cold often. 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 PAST MEDICAL HISTORY Diagnosis Date Abnormal LFTs (liver function tests) 06/27/2013 F/U [facility] Arthritis Ascites Asthma Bladder neck obstruction 05/26/2009 BPH with obstruction/lower urinary tract symptoms BPH with obstruction/lower urinary tract symptoms 08/24/2008 Chronic prostatitis 05/26/2009 CKD (chronic kidney disease) Coronary artery disease Elevated prostate specific antigen (PSA) 07/19/2007 Esophageal reflux 1998 admitted for chest pain Esophageal varices (HCC) Essential hypertension 04/02/2009 Former cigar smoker Hepatic fibrosis (HCC) on elastography 02/09/2018 Dr. Kelby Suarez. 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 Pleural effusion associated with hepatic disorder PMH - PAST MEDICAL HISTORY OF 1998 shingles without rash Portal vein thrombosis RBBB (right bundle branch block) 03/30/2009 Right inguinal hernia 10/03/2022 Skin cancer nose, face, ears Snoring Splenomegaly Stented coronary artery 07/18/2017 MICHELLE to diagonal and mid LAD. Tubular adenoma of colon 02/08/2017 Umbilical hernia 01/08/2014 Unspecified essential hypertension 04/02/2009 PAST SURGICAL HISTORY Procedure Laterality Date CC CORONARY STENT 07/18/2017 MICHELLE x 2 to mild LAD and diagonal COLONOSCOPY FLX DX W/COLLJ SPEC WHEN PFRMD 02/08/2017 Colonoscopy COLONOSCOPY FLX DX W/COLLJ SPEC WHEN PFRMD 01/07/2020 Colonoscopy CYSTOSCOPY 10/12/2020 EGD 02/01/2021 EGD 01/05/2022 ESOPHAGOGASTRODUODENOSCOPY TRANSORAL DIAGNOSTIC 01/07/2020 EGD INSERT HEPATIC SHUNT (TIPS) 09/20/2022 Transjugular Intrahepatic Portosystemic Shunt PARACENTESIS PROSTATE NEEDLE BIOPSY 05/19/2009 PROSTATE NEEDLE BIOPSY 01/02/2013 PROSTATECTOMY SUPRAPUBIC SUBTOTAL 1/2 STAGES 08/08/2021 + Umbilical hernia repair REMV CATARACT EXTRACAP,INSERT LENS 10/18/2020 10/04/20, 10/18/20 Social History Tobacco Use Smoking status: Former Types: Cigars Smokeless tobacco: Never Tobacco comments: Last cigar 07/17/2017 Vaping Use Vaping Use: Never used Substance Use Topics Alcohol use: Not Currently Alcohol/week: 5.0 standard drinks Types: 1 Glasses of Wine (5oz), 1 Mixed Drinks per week Comment: may have a drink once per month Drug use: No FAMILY HISTORY Problem Relation Age of Onset Arthritis Mother Heart Mother Pacemaker Stroke Mother w/ bowel obstruction Cancer Mother skin Heart Father Pacemaker Cancer Father skin Lipids Brother Lipids Brother Anesthesia Problems No Family History Allergies As of Date: 10/18/2022 Allergen Noted Reaction [id number] REDUCTASE INHIBIT*07/27/2020 Itching Fully Assessed 10/18/2022 Immunization History Administered Date(s) Administered COVID-19 original vaccine, age 12+ yr, monovalent (PFIZER-BIONTECH - RODRIGEZ TOP) 01/11/2022 COVID-19 original vaccine, booster dose, monovalent (MODERNA) 04/29/2021 COVID-19 original vaccine, full dose, monovalent (MODERNA) 08/09/2020 09/06/2020 COVID-19 vaccine, age 12+ yr, bivalent (PFIZER-BIONTECH) 05/24/2022 hepatitis A-hepatitis B (HepA-HepB) vaccine (TWINRIX) 01/06/2021 02/08/2021 07/12/2021 hepatitis B (HepB) vaccine, 3-dose series, age 20+ yr (ENGERIX-B, RECOMBIVAX HB) 05/09/2022 10/04/2022 hepatitis B (HepB-CpG) vaccine, adult, 2-dose series (HEPLISAV-B) 03/29/2022 influenza (HD-IIV) vaccine, age 65+ yr, high dose, PF (FLUZONE HIGH-DOSE) 07/07/2015 06/10/2017 04/17/2018 04/17/2019 03/12/2020 03/24/2021 influenza (IIV3) vaccine, age 3+ yr, trivalent (AFLURIA, FLULAVAL, FLUVIRIN, FLUZONE) 06/25/2014 06/14/2016 influenza (IIV3) vaccine, trivalent (AFLURIA, FLULAVAL, FLUVIRIN, FLUZONE) 03/23/2022 influenza vaccine, unspecified formulation 05/02/2010 05/03/2011 06/12/2012 07/03/2013 pneumococcal (PCV13) vaccine, 13 valent (PREVNAR 13) 01/05/2016 pneumococcal (PPV23) vaccine, 23 valent (PNEUMOVAX 23) 01/08/2014 04/17/2019 tetanus diphtheria pertussis (Tdap) vaccine, age 7+ yr (ADACEL, BOOSTRIX) 07/18/2007 zoster (ZVL) vaccine, live (ZOSTAVAX) 08/09/2015 REVIEW OF SYSTEMS: A complete review of systems was preformed and all others were negative. Objective PHYSICAL EXAMINATION: There were no vitals taken for this visit. GENERAL APPEARANCE: chronically ill, in the wheelchair. HEAD/SINUSES: No significant findings. OROPHARYNX: Lips, mucosa, and tongue normal. Teeth and gums normal. Oropharynx normal. LUNGS: decreased breath sounds on the right. HEART: Normal PMI, Regular rate/rhythm, normal heart sounds, and no murmurs. ABDOMEN: Non-tender, No palpable masses, Normal bowel sounds, and softly distended. EXTREMITIES: edema +. NEURO: Awake, alert and oriented x 3 and No involuntary motions. There is no height or weight on file to calculate BMI. DATA: Diagnostic tests reviewed for today's visit: Most recent labs and imaging results. LABS: CBC: Lab Results Component Value Date HB 11.1 10/16/2022 HB 14.5 07/11/2021 HCT 34.1 10/16/2022 HCT 45.4 07/11/2021 WBC 4.88 10/16/2022 WBC 6.08 07/11/2021 AutoDiff: Lab Results Component Value Date PLT 177 10/16/2022 PLT 146 07/11/2021 NEUTP 53.1 10/16/2022 NEUTP 58.4 07/11/2021 ABSNEUT 2.59 10/16/2022 ABSNEUT 3.55 07/11/2021 LYMPHP 24.2 10/16/2022 LYMPHP 21.1 07/11/2021 ABSLYMPH 1.18 10/16/2022 ABSLYMPH 1.28 07/11/2021 ABSMONO 0.87 10/16/2022 ABSMONO 0.84 07/11/2021 EODINP 4.9 07/11/2021 ABSEOSIN 0.13 10/16/2022 ABSEOSIN 0.30 07/11/2021 BASOP 2.0 10/16/2022 BASOP 1.8 07/11/2021 ABSBASO 0.10 10/16/2022 ABSBASO 0.11 07/11/2021 CMP: Lab Results Component Value Date ALB 3.0 10/16/2022 ALB 3.7 07/11/2021 CA 9.1 10/16/2022 CA 9.7 07/11/2021 TBILI 2.6 10/16/2022 TBILI 2.3 07/11/2021 ALKPHOS 170 10/16/2022 ALKPHOS 164 07/11/2021 AST 91 10/16/2022 AST 121 07/11/2021 GLUC 95 10/16/2022 GLUC 98 07/11/2021 BUN 30 10/16/2022 BUN 19 07/11/2021 CREAT 1.31 10/16/2022 CREAT 1.08 07/11/2021 NA 138 10/16/2022 NA 137 07/11/2021 K 4.6 10/16/2022 K 5.0 07/11/2021 CHLOR 104 10/16/2022 CHLOR 105 07/11/2021 CO2 25 10/16/2022 CO2 27 07/11/2021 ANION 9 10/16/2022 ANION 5 07/11/2021 ALT 54 10/16/2022 ALT 62 07/11/2021 APTT 32.3 10/16/2022 INR 1.1 10/16/2022 INR 1.1 07/11/2021 HBA1C: Hemoglobin A1C Date Value Ref Range Status 12/24/2020 5.2 4.3 - 5.6 % Final Comment: Citizen Of [place] Diabetes Association guidelines indicate that patients with HgbA1c in the range 5.7-6.4% are at increased risk for development of diabetes, and intervention by lifestyle modification may be beneficial. HgbA1c greater or equal to 6.5% is considered diagnostic of diabetes. Safe Living After Transplant Prevention of infections by direct contact: hand washing, avoid walking barefoot on the beach, use insect repellent in the summer, gloves for gardening, no piercings or tattoos. Prevention of respiratory illness: hand washing, avoid sick contacts, avoid smoke exposure. Avoid construction sites, birds, plant and soil, chicken coops, caves. No cleaning bird or cat litter. Water safety: no well water, no hot tubs, no drinking water from lakes or swimming pools. Food safety: no soft cheeses, no unpasteurized cheeses, no raw eggs, no raw meat, or raw poultry. Peel fruits and vegetables, avoid food sitting outside refrigerator at room temperature for a long time. Animal: wash hands after contact, no contact with sick animals, don't pet stray animals, avoid bites or scratches & report immediately to medical care, no reptiles, rodents, kittens, chicks or ducklings, monkeys. No cleaning pets. Travel: evaluation by travel clinic if foreign travel considered. Impression/Recommendations Mr. Jesus Sosa is a 72 year old gentleman being evaluated for liver transplantation. He has a h/o DURANT cirrhosis, TIPS, VANESSA, CAD, and CKD. He does not appear to possess increased risk of infectious complications post transplant. Recommendations: Tdap and Shingrix via pharmacy. Routine perioperative antibiotics. There is no infectious disease contraindication to transplant. SIGNATURE: Matt Lopez MD PATIENT NAME: Jesus Sosa DATE: October 18, 2022 TIME: 2:42 PM PAGER/CONTACT #: [phone] documented in this encounterK[facility]05-10-[facility]23 History of Present illness Narrative* Rogelio Guerrero - 10/18/2022 12:00 PM EDT Radiology Service Progress Note PATIENT NAME: Jesus Sosa DATE OF SERVICE: October 18, 2022 TIME: 11:43 AM PATIENT IDENTITY VERIFICATION COMPLETED USING TWO (2) IDENTIFIERS: Name and Date of confirmedby patient verbally and Name and Date of confirmed by identification band. FALL SCREENING: Has the patient had 2 falls in the last year or 1 fall with injury or currently using an Ambulatory Assistive Device (Walker, Cane, Wheelchair, Crutches, etc.)? No PATIENT GENDER DATA: Male PATIENT RELEVANT IMPLANT DATA REVIEWED: Yes RADIOLOGY DEPARTMENT: CT; Exam(s) Completed: Chest PERIPHERAL IV DATA: Not applicable SIGNED BY: Rogelio Guerrero October 18, 2022 11:43 AM documented in this encounterKet[facility]05-10-2023 History of Present illness Narrative* Isaac Wagner [facility] - 10/18/2022 10:00 AM EDT Images from the original note were not included. TRANSPLANT EVALUATION Pharmacotherapy Evaluation Patient Name: Jesus Sosa Date of Service: October 18, 2022 Mr. Sosa is a 72 year old male who presents to the clinic today for pre- liver transplantation pharmacotherapy evaluation. Patient presents to clinic with DURANT. MELD-Na score 14. Pertinent medication-related PMH: CKD III, HLD, HTN, CAD s/p stents (MICHELLE to LAD x 2 in 2018), VANESSA (on cpap), GERD, OA, Obesity. Allergies: ALLERGIES Allergen Reactions Xdadjgy-Ojh-Dnt Red* Itching [facility]- [facility] [place] [id number] - [facility] - [phone] Portal to Registered Caremark Sites [facility] [place] [address] e- [facility]/pharmacy #[id number] [place] [address] - [address] [facility] - [phone] [address] [facility] [address] Evaluation of current pharmacotherapy: Current Outpatient Rx Medication Sig Dispense Refill spironolactone (ALDACTONE) 50 mg tablet Take 50 mg by mouth every other day. furosemide (LASIX) 20 mg tablet Take 20 mg by mouth every other day. Cholecalciferol, Vitamin D3, (VITAMIN D-3) 50 mcg (2,000 unit) cap Take 1 capsule by mouth once daily. 90 capsule 3 alirocumab (PRALUENT PEN) 150 mg/mL Inject 150 mg subcutaneously every 2 weeks. Per cabbage salter.inplace of statin aspirin(ECOTRIN LOW STRENGTH 81 MG TAB) Take one(1) tablet daily. 0 Medication reconciliation: Completed Knowledge of regimen: 100% Praluent - next dose due 10/19 OTC/Herbal medications: Tylenol as needed Anticoagulation: Aspirin 81 mg OARRS review: Reviewed Adherence Evaluation: Do you currently manage your medications on your own or have someone help you? Yes How often do you forget to take your medication? 2x a year Over the past two weeks, how many days did you not take your medicine? None How often do you cut back or stop taking your medication without telling your doctor? Never When you travel or leave home, how often do you forget to bring along your medications? Never Did you take your medicine yesterday? Yes What strategies are you using to help you remember to take your medications? Pill box, has 2 one-week boxes How comfortable do you feel managing your medication regimen? Good Do you have a good support system at home where someone can help you manage your medications post-transplantation until you are able to do so on your own? Yes Social History: Tobacco: History of use: cigars for a number of years, stopped in 2018 after cardiac stents placed ETOH: Denies Illicit drugs: Denies Vaccination History Review: Immunization History Administered Date(s) Administered COVID-19 original vaccine, age 12+ yr, monovalent (AccessPay - RODRIGEZ TOP) 01/11/2022 COVID-19 original vaccine, booster dose, monovalent (MODERNA) 04/29/2021 COVID-19 original vaccine, full dose, monovalent (MODERNA) 08/09/2020 09/06/2020 COVID-19 vaccine, age 12+ yr, bivalent (Access Closure-BIONTECH) 05/24/2022 hepatitis A-hepatitis B (HepA-HepB) vaccine (TWINRIX) 01/06/2021 02/08/2021 07/12/2021 hepatitis B (HepB) vaccine, 3-dose series, age 20+ yr (ENGERIX-B, RECOMBIVAX HB) 05/09/2022 10/04/2022 hepatitis B (HepB-CpG) vaccine, adult, 2-dose series (HEPLISAV-B) 03/29/2022 influenza (HD-IIV) vaccine, age 65+ yr, high dose, PF (FLUZONE HIGH-DOSE) 07/07/2015 06/10/2017 04/17/2018 04/17/2019 03/12/2020 03/24/2021 influenza (IIV3) vaccine, age 3+ yr, trivalent (AFLURIA, FLULAVAL, FLUVIRIN, FLUZONE) 06/25/2014 06/14/2016 influenza (IIV3) vaccine, trivalent (AFLURIA, FLULAVAL, FLUVIRIN, FLUZONE) 03/23/2022 influenza vaccine, unspecified formulation 05/02/2010 05/03/2011 06/12/2012 07/03/2013 pneumococcal (PCV13) vaccine, 13 valent (PREVNAR 13) 01/05/2016 pneumococcal (PPV23) vaccine, 23 valent (PNEUMOVAX 23) 01/08/2014 04/17/2019 tetanus diphtheria pertussis (Tdap) vaccine, age 7+ yr (ADACEL, BOOSTRIX) 07/18/2007 zoster (ZVL) vaccine, live (ZOSTAVAX) 08/09/2015 May consider the following vaccinations prior to transplantation: Shingrix and Tdap Education provided: Patient was given an overview of immunosuppressant therapy and was provided an example MedActionPlan. Patient was educated on expected adverse effects and the importance of adherence to transplant medication regimens. All questions were answered to patient s satisfaction. Patient was informed to contact the clinic if any questions or concerns arise. VISIT SUMMARY Potential drug-drug interaction with immunosuppressant regimen: No Anticoagulation: Patient is not currently on any anticoagulation. Anticipate post-transplant medication regimen non-adherence? No Factors affecting learning: None Time spent completing evaluation: 30 minutes There are no medication issues identified that would preclude transplant in this patient. Lexi OneillD, BCPS, BCTXP Transplant Pharmacy Clinical Specialist documented in this encounterK[facility]05-10-2023 Consult note* Josemanuel Milton MD - 10/18/2022 9:50 AM EDT INITIAL CONSULT ANESTHESIA LIVER TRANSPLANT SERVICE DATE: 10/18/2022 SERVICE TIME: [address] Tevin De La Cruz for an opinion regarding liver transplant candidacy from the anesthesiology standpoint My final recommendations will be communicated back to the requestingphysician by way of shared Medical record or letter to requesting physician via [place] mail. ASSESSMENT AND PLAN: Jesus Sosa is a 72 year old male with end stage liver disease as described in the HPI below. According to my assessment, Mr. Jesus Sosa is an acceptable candidate for orthotopic liver transplant from an anesthetic point of view pending the following workup: Cardiology Consult RE: CAD s/PCI with MICHELLE to LAD and D1 in 2019. Need for follow up with stress test versus left heart catheterization. Patient is HIGH RISK for transplantation from the anesthetic perspective. The following conditions contribute to the above average risk: CAD s/p PCI, CKD. Follow up plan consists of cardiology consult for risk stratification Anesthesia for transplantation with risks, benefits, and alternatives was discussed with patient including the participation of anesthesiology residents, invasive monitoring, massive blood transfusion, and possibility of prolonged intubation. The patient and/or family appears to understand and wishes to proceed. SUBJECTIVE: CHIEF COMPLAINT: Consultation for liver transplant evaluation. HPI: This is a 72 year old male who presents with end-stage liver disease from DURANT complicated by the following: ascites, s/p paracentesis and TIPS Portal hypertension Hydrothorax s/p thoracentesis Esophageal varices ( no banding) BOBY on top of CKD stage 3 The patient also has the following active medical conditions to be considered in their evaluation: CAD s/p PCI with MICHELLE to mid LAD and D1 in 2019 HTN VANESSA on CPAP CKD stage 3 Patient Currently has the Following Access: None ACTIVE PROBLEM LIST Mixed Hyperlipidemia Stented Coronary Artery Tubular Adenoma of Colon Hepatic fibrosis (HCC) on elastography Coronary Arteriosclerosis in [place] Artery Obesity, Class I, Bmi 30-34.9 Ckd (Chronic Kidney Disease) Stage 3, Gfr 30-59 Ml/Min (Hcc) Vanessa (Obstructive Sleep Apnea) Umbilical Hernia Elevated Lfts Nonalcoholic Fatty Liver Disease Without Nonalcoholic Steatohepatitis (Durant) Vitamin D Deficiency Portal Hypertension With Esophageal Varices (Hcc) Liver Cirrhosis Secondary to Durant (Hcc) Diarrhea Right Inguinal Hernia H/O Prostatectomy Bronchiolar Disease Other Ascites S/P Tips (Transjugular Intrahepatic Portosystemic Shunt) Pleural Effusion Associated With Hepatic Disorder Urethral Stricture Platelets Decreased (Hcc) Josemanuel Milton MD PAST MEDICAL HISTORY Diagnosis Date Abnormal LFTs (liver function tests) 06/27/2013 F/U [facility] Arthritis Ascites Asthma Bladder neck obstruction 05/26/2009 BPH with obstruction/lower urinary tract symptoms BPH with obstruction/lower urinary tract symptoms 08/24/2008 Chronic prostatitis 05/26/2009 CKD (chronic kidney disease) Coronary artery disease Elevated prostate specific antigen (PSA) 07/19/2007 Esophageal reflux 1998 admitted for chest pain Esophageal varices (HCC) Essential hypertension 04/02/2009 Former cigar smoker Hepatic fibrosis (HCC) on elastography 02/09/2018 Dr. Kelby Suarez. 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 Pleural effusion associated with hepatic disorder PMH - PAST MEDICAL HISTORY OF 1998 shingles without rash Portal vein thrombosis RBBB (right bundle branch block) 03/30/2009 Right inguinal hernia 10/03/2022 Skin cancer nose, face, ears Snoring Splenomegaly Stented coronary artery 07/18/2017 MICHELLE to diagonal and mid LAD. Tubular adenoma of colon 02/08/2017 Umbilical hernia 01/08/2014 Unspecified essential hypertension 04/02/2009 PAST SURGICAL HISTORY Procedure Laterality Date CC CORONARY STENT 07/18/2017 MICHELLE x 2 to mild LAD and diagonal COLONOSCOPY FLX DX W/COLLJ SPEC WHEN PFRMD 02/08/2017 Colonoscopy COLONOSCOPY FLX DX W/COLLJ SPEC WHEN PFRMD 01/07/2020 Colonoscopy CYSTOSCOPY 10/12/2020 EGD 02/01/2021 EGD 01/05/2022 ESOPHAGOGASTRODUODENOSCOPY TRANSORAL DIAGNOSTIC 01/07/2020 EGD INSERT HEPATIC SHUNT (TIPS) 09/20/2022 Transjugular Intrahepatic Portosystemic Shunt PARACENTESIS PROSTATE NEEDLE BIOPSY 05/19/2009 PROSTATE NEEDLE BIOPSY 01/02/2013 PROSTATECTOMY SUPRAPUBIC SUBTOTAL 1/2 STAGES 08/08/2021 + Umbilical hernia repair REMV CATARACT EXTRACAP,INSERT LENS 10/18/2020 10/04/20, 10/18/20 FAMILY HISTORY Problem Relation Age of Onset Arthritis Mother Heart Mother Pacemaker Stroke Mother w/ bowel obstruction Cancer Mother skin Heart Father Pacemaker Cancer Father skin Lipids Brother Lipids Brother Anesthesia Problems No Family History SOCIAL HISTORY: Social History Tobacco Use Smoking status: Former Types: Cigars Smokeless tobacco: Never Tobacco comments: Last cigar 07/17/2017 Vaping Use Vaping Use: Never used Substance Use Topics Alcohol use: Not Currently Alcohol/week: 5.0 standard drinks Types: 1 Glasses of Wine (5oz), 1 Mixed Drinks per week Comment: may have a drink once per month Drug use: No MEDICATIONS: No current facility-administered medications for this visit. ALLERGIES: ALLERGIES Allergen Reactions Axsbfwf-Wpc-Jqt Red* Itching OBJECTIVE REVIEW OF SYSTEMS: PAIN ASSESSMENT: Negative for pain, history of chronic pain, or current treatment for a chronic pain condition. GENERAL: No weight loss, malaise or fevers. HEENT: No TMJ, dentition or trach. NECK: Negative for lumps, goiter, pain and significant neck swelling. RESPIRATORY: Shortness of breath. CARDIOVASCULAR: Decreasing exercise tolerence. GI: No nausea, vomiting, or diarrhea. MUSCULOSKELETAL: Negative for joint pain or swelling, back pain or muscle pain. SKIN: Negative for lesions, rash, and itching. seeping in right upper extremity secondary to edema PSYCH: Negative for sleep disturbance, mood disorder and recent psychosocial stressors. HEMATOLOGY/LYMPHOLOGY: Bruising easily. ENDOCRINE: Cold intolerance. NEURO: No history of headaches, syncope, paralysis, seizures or tremors. PHYSICAL EXAM: VITAL SIGNS: BP (!) 149/48 Pulse 84 Temp 36.9 C (98.4 F) (Temporal) Resp 16 Ht 174 cm (5' 8.5) Wt 98.9 kg (218 lb) SpO2 95% BMI 32.66 kg/m GENERAL: Alert. No distress. Cooperative. HEENT: PATIENT INTUBATED AND/OR HAS TRACHEOSTOMY: No MOUTH OPENING/TMJ: Full jaw ROM MICROGNATHIA/OVERBITE: No MALLAMPATI SCORE: MP 1 DENTITION: Intact THYROMENTAL DIST: WNL SHORT NECK: No NECK FLEX: Full ROM. NECK EXTENSION: Full ROM. NECK: No carotid bruits, no neck mass or tracheal deviation. CARDIAC: Regular rate and rhythm. LUNGS: Lungs clear to auscultation. Good air entry bilaterally. NEURO: Grossly normal, no focal deficits. ABDOMEN: Not assessed. MUSCULOSKELETAL: bilateral lower and upper extremity edema. Spine range of motion normal. Muscular strength intact. ADVERSE ANESTHESIA EVENT: No history of adverse event. INTUBATION HISTORY: History of general anesthesia without difficulty. Patient WILL accept blood products while under anesthesia during surgery. PLANNED ANESTHETIC: General SPECIAL ANESTHESIA CONSIDERATIONS: Not applicable for this patient. POST-OP PAIN MANAGEMENT PLAN: PRN and/or IV narcotics per PCP. DATA: Diagnostic tests reviewed for today's visit: EKG Reading: SINUS RHYTHM WITH SINUS ARRHYTHMIA WITH 1ST DEGREE AV BLOCK LEFT AXIS DEVIATION COMPLETE RIGHT BUNDLE BRANCH BLOCK MINIMAL VOLTAGE CRITERIA FOR LVH, MAY BE NORMAL VARIANT ( R in aVL ) ABNORMAL ECG Stress Test: myocardial perfusion stress test in 2019 at [facility], no evidence of ischemia [facility]chocardiogram: [facility]: - The left ventricle is normal in size. Left ventricular systolic function is normal. EF = 61 5% (2D 4-ch.) Indeterminate left ventricular diastolic dysfunction. - The right ventricle is normal in size. Right ventricular systolic function is normal. - There is no patent foramen ovale as detected by Doppler and agitated saline contrast. - Agitated saline study was negative for an intracardiac shunting (clip 83). - The patient has not had a prior CC echocardiographic exam for comparison. Cardiac Cath: no left heart cath since PCI in 2018 PFT Test: Restrictive process: FEV1: 1.41; FVC: 2.19; FEV1/FVC:0.65 -> 85% Pred Laboratory and Testing: Lab Value Units Date High Low HB 11.1 g/dL 10/16/2022 17.0 13.0 HCT 34.1 % 10/16/2022 51.0 39.0 WBC 4.88 k/uL 10/16/2022 11.00 3.70 PLT 177 k/uL 10/16/2022 400 150 NA 138 mmol/L 10/16/2022 144 136 K 4.6 mmol/L 10/16/2022 5.1 3.7 GLUC 95 mg/dL 10/16/2022 99 74 BUN 30 mg/dL 10/16/2022 24 9 CREAT 1.31 mg/dL 10/16/2022 1.22 0.73 PTSEC 11.7 sec 10/16/2022 13.0 9.7 INR 1.1 no uni* 10/16/2022 1.3 0.9 APTT 32.3 sec 10/16/2022 32.4 23.0 ALT 54 U/L 10/16/2022 54 10 AST 91 U/L 10/16/2022 40 14 TBILI 2.6 mg/dL 10/16/2022 1.3 0.2 TSH 3.880 mIU/L 10/16/2022 4.200 0.270 GFR No results within date range. FIBRAG No results within date range. No results found for: ANTINT SIGNATURE: Josemanuel Milton MD PATIENT NAME: Jesus Sosa DATE: October 18, 2022 TIME: 9:50 AM documented in this encounterK[facility]05-10-2023 Miscellaneous Notes* Telephone Encounter - Krissy Horn RN - 10/18/2022 9:43 AM EDT AMBULATORY PATIENT EDUCATION NOTE Met with patient/family to discuss the following information: [x] SRTR information provided and questions answered. Informed patient to call media coordinator with any questions [x] Patient was provided the [facility] brochure on multiple listing and waiting time transfer [x]Evaluation process including presentation to selection committee, [facility]OTC approval and listing criteria reviewed [x]Surgical procedure, including post-operative management, hospitalization, lifelong immunosuppressive medications and their side effects (including the risk for hypertension, diabetes, kidney problems and cancers) and intermediate follow up after transplant. Possibility of recurrent disease discussed with patient. [x]Patient is aware of the potential medical, surgical or psychosocial risks [x] Patient is aware that they will need a respiratory care program director to be available for the first 8-12 weeks after discharge from the hospital. [x] Patient informed that in order to maintain their UNOS listing status periodic test will be required. If they fail to keep appointments or to undergo required lab testing, listing status may be affected. [x]Discussed organ donor risk factors, including potential risk of developing transmissible diseaseincluding but not limited to HIV, hepatitis B and C, malaria, and malignancy during liver transplant. [x]Patient advised that they may be asked to consider donors with positive lab results such as Hepatitis B or Hepatitis C, depending on their circumstances [x]Patient was advised of his/her right to decline offers for transplant without any penalty [x]Patient was advised that he/she can refuse transplantation at any time prior to transplant without any penalty. [x]Patient was advised that if they choose not to proceed with transplant, alternative treatment will be provided. Alternative treatment may include medications to control fluid buildup or medications to prevent confusion. [x] Patient told their protected health information would be released to OSOTC and [facility] in order bryn placed on the [facility]OS waiting list for a donor organ. [x] Patient told that my medical information and procedures, without revealing my identity may be used for teaching and research activities. [x] Patient told they are responsible for arranging for payment for costs that are not covered by insurance. Patient advised that insurance approval is needed prior to listing. [x] Patient told that the [facility] is a teaching facility and part of care, under the guidance of my physicians, may be conducted by [employer], [place] and students. [x]Patient advised that transplants not performed in a medicare-approved hospital may negatively affect payment for medication coverage by Medicare Part B. [x]We make every attempt to provide transplant services 24 hours per day. We would notify you of any closure and assist in making alternative transplant arrangements. READINESS TO LEARN COGNITIVE ABILITY: Alert and oriented MOTIVATION TO LEARN: Interested FAMILY SUPPORT: High - Very involved in pt care INSTRUCTION PROVIDED TO: Patient and Spouse PATIENT LEARNS BEST BY: Multiple Methods FACTORS AFFECTING LEARNING: None PHYSICAL LIMITATIONS AFFECTING LEARNING: None LEARNING RESPONSE DIAGNOSIS: DURANT cirrhosis METHOD OF INSTRUCTION: Verbal instruction PATIENT / FAMILY RESPONSE: Verbalizes understanding of: RISK FACTORS-Unique risk factors related totheir disease DURANT FOLLOW-UP PLAN: Complete - No need for follow-up SUPPLEMENTAL MATERIAL: None REFERRAL (RECOMMENDATION): None Electronically Signed By: Krissy Horn RN In Department: TRANSPLANT CENTER documented in this encounterK[facility] Health05-10-2023 History of Present illness Narrative* Marco Antonio Landry MD - 10/18/2022 9:22 AM EDT Images from the original note were not included. LIVER TRANSPLANT EVALUATION Patient Name: Jesus Sosa Date of Service: October 18, 2022 Liver disease secondary to: DURANT Liver disease diagnosed in: 2018 Number of hospital admissions with liver disease: HPI: Jesus Sosa is a 72 yo male with asthma, CKD III, HLD, HTN, CAD s/p stents (MICHELLE to LAD x 2 in 2018), VANESSA (on cpap), GERD, OA, Obesity, DURANT c/b portal HTN, ascites, HHT, EV, splenomegaly, thrombocytopenia. Has prior hx of skin CA, removal of adenomatous polyps of colon (last 2016), severe BPH s/p suprapubic prostatectomy & umbilical hernia repair w/o mesh on 08/08/21. Patient decompensatedafter surgery in 07/2021, c/o chronic fatigue, edema, & ascites. No GIB in past. Prior EGDs with PHG and non-bleeding EV, no prior banding. He did require frequent para- and thoracentesis, then had TIPS placed in 09/2022. PVT seen 07/2022 scans. Direct venography during TIPS states Nonocclusive thrombus in the main portal vein. Right portal vein was completely occluded. He last went for paracentesis on 10/06 but there was no pocket of fluid to remove. He did have his last thoracentesis on 10/09 with 3L fluid removal. Diuretics were discontinued after TIPS placement, but patient states he noticed significant peripheral and scrotal edema shortly after. Placed back on diuretics recently by Hepatology. Has not had any issue with HE even after TIPS. Patient is a former cigar smoker and social alcohol use. Patient states he is very active up until recently. He's not as active as scrotal edema makes it very uncomfortable for him. Of note, patient has right inguinal hernia and recently seen by general surgery for consideration of repair. He is currently being evaluated for liver transplantation. MELD-Na score: 14 at 10/16/2022 9:40 AM MELD score: 14 at 10/16/2022 9:40 AM Calculated from: Serum Creatinine: 1.31 mg/dL at 10/16/2022 9:40 AM Serum Sodium: 138 mmol/L (Using max of 137 mmol/L) at 10/16/2022 9:40 AM Total Bilirubin: 2.6 mg/dL at 10/16/2022 9:40 AM INR(ratio): 1.1 at 10/16/2022 9:40 AM Age: 72 years There is no height or weight on file to calculate BMI. Bilirubin, Total (mg/dL) Date Value 10/16/2022 2.6 07/11/2021 2.3 PT INR (no units) Date Value 07/11/2021 1.1 INR (no units) Date Value 10/16/2022 1.1 Creatinine (mg/dL) Date Value 10/16/2022 1.31 07/11/2021 1.08 PAST MEDICAL HISTORY Diagnosis Date Abnormal LFTs (liver function tests) 06/27/2013 F/U [facility] Arthritis Ascites Asthma Bladder neck obstruction 05/26/2009 BPH with obstruction/lower urinary tract symptoms BPH with obstruction/lower urinary tract symptoms 08/24/2008 Chronic prostatitis 05/26/2009 CKD (chronic kidney disease) Coronary artery disease Elevated prostate specific antigen (PSA) 07/19/2007 Esophageal reflux 1998 admitted for chest pain Esophageal varices (HCC) Essential hypertension 04/02/2009 Former cigar smoker Hepatic fibrosis (HCC) on elastography 02/09/2018 Dr. Kelby Suarez. 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 Pleural effusion associated with hepatic disorder PMH - PAST MEDICAL HISTORY OF 1998 shingles without rash Portal vein thrombosis RBBB (right bundle branch block) 03/30/2009 Right inguinal hernia 10/03/2022 Skin cancer nose, face, ears Snoring Splenomegaly Stented coronary artery 07/18/2017 MICHELLE to diagonal and mid LAD. Tubular adenoma of colon 02/08/2017 Umbilical hernia 01/08/2014 Unspecified essential hypertension 04/02/2009 PAST SURGICAL HISTORY Procedure Laterality Date CC CORONARY STENT 07/18/2017 MICHELLE x 2 to mild LAD and diagonal COLONOSCOPY FLX DX W/COLLJ SPEC WHEN PFRMD 02/08/2017 Colonoscopy COLONOSCOPY FLX DX W/COLLJ SPEC WHEN PFRMD 01/07/2020 Colonoscopy CYSTOSCOPY 10/12/2020 EGD 02/01/2021 EGD 01/05/2022 ESOPHAGOGASTRODUODENOSCOPY TRANSORAL DIAGNOSTIC 01/07/2020 EGD INSERT HEPATIC SHUNT (TIPS) 09/20/2022 Transjugular Intrahepatic Portosystemic Shunt PARACENTESIS PROSTATE NEEDLE BIOPSY 05/19/2009 PROSTATE NEEDLE BIOPSY 01/02/2013 PROSTATECTOMY SUPRAPUBIC SUBTOTAL 1/2 STAGES 08/08/2021 + Umbilical hernia repair REMV CATARACT EXTRACAP,INSERT LENS 10/18/2020 10/04/20, 10/18/20 FAMILY HISTORY Problem Relation Age of Onset Arthritis Mother Heart Mother Pacemaker Stroke Mother w/ bowel obstruction Cancer Mother skin Heart Father Pacemaker Cancer Father skin Lipids Brother Lipids Brother Anesthesia Problems No Family History Employer And Job Title: [employer] Years Of Education Completed: Not specified Marital Status: with no children Social History Tobacco Use Smoking status: Former Types: Cigars Smokeless tobacco: Never Tobacco comments: Last cigar 07/17/2017 Vaping Use Vaping Use: Never used Substance Use Topics Alcohol use: Not Currently Alcohol/week: 5.0 standard drinks Types: 1 Glasses of Wine (5oz), 1 Mixed Drinks per week Comment: may have a drink once per month Drug use: No ALLERGIES Allergen Reactions [id number] Red* Itching Current Outpatient Medications Medication Sig spironolactone (ALDACTONE) 50 mg tablet Take 50 mg by mouth every other day. furosemide (LASIX) 20 mg tablet Take 20 mg by mouth every other day. Cholecalciferol, Vitamin D3, (VITAMIN D-3) 50 mcg (2,000 unit) cap Take 1 capsule by mouth once daily. alirocumab (PRALUENT PEN) 150 mg/mL Inject 150 mg subcutaneously every 2 weeks. Per cabbage salter.inplace of statin aspirin(ECOTRIN LOW STRENGTH 81 MG TAB) Take one(1) tablet daily. No current facility-administered medications for this visit. REVIEW OF SYSTEMS: MUSCULOSKELETAL: No arthralgia, joint pain or swelling. SKIN: No rashes, lesions, or jaundice HEMATOLOGY: No bruising or abnormal bleeding. ENDOCRINE: + Chronic fatigue. No unintentional weight loss/gain, no heat/cold intolerance. INFECT: No fevers, chills, rigors or night sweats. CVS: No chest pain, palpitations, or PND. + Peripheral edema. RS: + Mild MARR. No cough, wheezing, or hemoptysis. NEURO: No focal weakness, focal sensory loss, headache, visual changes, seizure activity, ataxia, speech/language loss. PSYCH: No history of psychiatric problems, no history of depression PHYSICAL EXAMINATION There were no vitals taken for this visit. General appearance: Awake, conversant, in no apparent distress. Eyes: Pupils equal and reactive bilaterally. Anicteric sclera. EOMs intact. ENT: Mucous membranes moist. No drainage from ears or nose. Neck supple and trachea midline. Respiratory: CTA bilaterally. Without respiratory distress, wheezing, or rhonchi. Equal chest excursion. Cardiovascular: S1 S2 auscultated. No murmur, rub, or gallop appreciated. Peripheral pulses palpable and equal. LE edema present. Gastrointestinal: Abdomen soft, nondistended, nontender. Without mass or pulsatile mass. Atraumaticand without ecchymosis. + Surgical scar at umbilicus. Genitourinary: Deferred. Musculoskeletal: Appropriate muscle mass, without deformities. No clubbing, cyanosis, or edema. Skin: Warm, dry. CR < 3 seconds. Psychiatric: Calm, cooperative, appropriate affect. Heme/Lymph: No abnormal bleeding, ecchymosis, inflammation, or swelling. Neurologic: GCS = 15 (E4, V5, M6). Without focal deficits. LABORATORY RESULTS: CBC: Hemoglobin (g/dL) Date Value 10/16/2022 11.1 07/11/2021 14.5 Hematocrit (%) Date Value 10/16/2022 34.1 07/11/2021 45.4 WBC (k/uL) Date Value 10/16/2022 4.88 07/11/2021 6.08 Platelet Count (k/uL) Date Value 10/16/2022 177 07/11/2021 146 Chemistries: Glucose (mg/dL) Date Value 10/16/2022 95 07/11/2021 98 Potassium (mmol/L) Date Value 10/16/2022 4.6 07/11/2021 5.0 Sodium (mmol/L) Date Value 10/16/2022 138 07/11/2021 137 Chloride (mmol/L) Date Value 10/16/2022 104 07/11/2021 105 CO2 (mmol/L) Date Value 10/16/2022 25 07/11/2021 27 Creatinine (mg/dL) Date Value 10/16/2022 1.31 07/11/2021 1.08 BUN (mg/dL) Date Value 10/16/2022 30 07/11/2021 19 Anion Gap (mmol/L) Date Value 10/16/2022 9 07/11/2021 5 Calcium (mg/dL) Date Value 07/11/2021 9.7 Calcium, Total (mg/dL) Date Value 10/16/2022 9.1 Protein, Total (g/dL) Date Value 10/16/2022 5.1 07/11/2021 6.6 Albumin (g/dL) Date Value 10/16/2022 3.0 07/11/2021 3.7 Bilirubin, Total (mg/dL) Date Value 10/16/2022 2.6 07/11/2021 2.3 Alkaline Phosphatase (U/L) Date Value 10/16/2022 170 07/11/2021 164 AST (U/L) Date Value 10/16/2022 91 07/11/2021 121 ALT (U/L) Date Value 10/16/2022 54 07/11/2021 62 Tumor Markers 10/16/22: AFP < 3 PSA 0.37 RADIOLOGICAL INVESTIGATIONS: CXR 3/6/23: Lines, tubes, and devices: None. Lungs and pleura: There has been decrease and/or dependent shift of moderate right and small left pleural effusions with improvement of bilateral basilar atelectasis. Improving superimposed edema or inflammation cannot be excluded. Cardiomediastinal silhouette: Normal sized heart. Thoracic aorta is mildly tortuous. Bones and soft tissues: The visualized bones are osteopenic. CT chest wo IV contrast: pending. CT Liver w/wo IV contrast 07/20/22: Liver: Hepatic morphology and masses: Cirrhotic liver morphology. No liver lesion identified. Hepatic vasculature and collaterals: Portal venous system: -Patent SMV. Patent prominent caliber SMV with anterior collateral portosystemic which courses along the RIGHT subhepatic space and with multiple small RIGHT abdominal omental and retroperitoneal collaterals. - Subocclusive main portal vein thrombus (approximately 50%), with occlusive thrombosis of the RIGHT intrahepatic portal circulation but patent LEFT intrahepatic portal circulation. Patent SMV. Portal vein diameter: 1.5 cm. Celiac trunk and SMA: Patent. No stenosis. Hepatic artery: Patent. Conventional anatomy. Hepatic veins: Not well opacified Collaterals: Spontaneous splenorenal shunt: Large Recanalized paraumbilical vein: Small Gastroesophageal varices: Small Mesenteric portosystemic collaterals: Present Related extrahepatic findings: Spleen: 14.8 cm (craniocaudally), enlarged. No mass. Mesentery/Peritoneum: Moderate to large volume ascites. No mass. Other findings: Biliary: No bile duct dilation. Cholelithiasis. Pancreas: No mass or duct dilation. Adrenals: No mass. Kidneys: No mass, calculus or hydronephrosis. GI tract: Diffuse small bowel wall thickening, likely from hypoproteinemia/ascites or enteropathy of portal hypertension.No dilated bowel. Small umbilical hernia with knuckle of nonobstructed small bowel. Mild colonic diverticulosis likely present. Normal appendix. Lymph nodes: Reactive lymph nodes in the mesentery retroperitoneum. No lymphadenopathy by size criteria. Vasculature (other): There are atherosclerotic calcifications without aneurysmal dilation. Bones/Soft Tissues: Degenerative change. No destructive or traumatic lesion. Lower thorax: Large RIGHT and small LEFT pleural effusions with compressive atelectasis. Mattress Inspector (topogram) images: No additional findings. Duplex Liver: none Liver Biopsy: none Cardiac Evaluation: ECHO 06/19/22 CONCLUSIONS: - Exam indication: Shortness of Breath - The left ventricle is normal in size. Left ventricular systolic function is normal. EF = 61 5% (2D 4-ch.) Indeterminate left ventricular diastolic dysfunction. - The right ventricle is normal in size. Right ventricular systolic function is normal. - There is no patent foramen ovale as detected by Doppler and agitated saline contrast. - Agitated saline study was negative for an intracardiac shunting (clip 83). - The patient has not had a prior CC echocardiographic exam for comparison. ASSESSMENT: Jesus Sosa is a 72 yo male with asthma, CKD III, HLD, HTN, CAD s/p MICHELLE to LAD x 2 (2018), VANESSA on cpap, GERD, OA, Obesity, DURANT c/b portal HTN, ascites, HHT, EV, splenomegaly, thrombocytopenia. Has prior hx of skin CA, severe BPH s/p suprapubic prostatectomy & umbilical hernia repair w/o mesh on 08/08/21. TIPS was ascites has greatly improved. Last thora was soon after TIPS. He has developed edema elsewhere after brief discontinuation of his diuretics; restarted diuretics. His edema, HHT may continue to improve post TIPS and with titration of diuretics. Plan to continue OLT evaluation reasonable while he continues to follow with Hepatology. Patient has cardiac risk factors, h/o obesity, HTN, HLD, DURANT as noted above. Denies any cardiac issues since PCI in 2018. 1) Any sign/source of infection: No, Any positive culture: No 2) Any extra hepatic malignancy: No 3) Any major respiratory or cardiac co-morbidity (non hepatic related) precluding transplant: No 4) Any ongoing substance abuse: No 5) on any organ support: No 6) Any surgical risks: Previous surgery: Yes, umbilical hernia repair, robotic assisted suprapubic prostatectomy Any PV thrombus: Yes, right PV completely occluded, nonocclusive thrombus to main PV. Any shunt: Yes, large SMV-right renal vein shunt and splenorenal shunt Any arterial pathology: No An overview of the transplant process was discussed with the patient. I reviewed types of organ donors, including standard and extended criteria donors; living donation was also discussed. Risks, benefits, and alternatives of liver transplant were reviewed with patient in detail, includingbut not limited to need for re-operation, primary non-function, bile leak, hepatic artery thrombosis, and . Short and assistant terminal manager outcomes data was discussed. I reviewed an expected standard post-operative recovery and early follow-up. Lastly, I discussed the need for immunosuppressive therapy associated with transplant. Jesus Sosa is considered a high-risk candidate for liver transplantation given his age and his comorbid conditions. Possible living donor: No DCD candidate: no HCV Donor: Jesus Sosa wishes to pursue the option of obtaining a HCV positive organ. Patient was accompanied by . Advantages and disadvantages of HCV viremic donor transplantation were reviewed. Patient received education on the risk of transmission of HCV following HCV viremic donor transplantation,the natural history of HCV, current therapies for HCV, side effects of therapy, and need for monitoring during and after therapy for HCV. Provided ppatient with educational slide packet and handout titled Transplantation of Hepatitis C Viremic Organs into Hepatitis C Negative Recipients. The risks of HCV transmission post-transplant, fibrosing cholestatic HCV, treatment failure, chronic HCV, cirrhosis and hepatic and non-hepatic manifestations of acute and chronic HCV were specifically discussed. Patient and verbalized understanding of the risks and benefits of receiving a hepatitis C viremic organ, and provided verbal consent to be enrolled in the protocol. All of their questions were answered. [id number] Education: STUDY TITLE: A Multicenter, Prospective, Open-label, Randomized Controlled Clinical Trial to Compare the Safety and Effectiveness of the VitaSmartTM Liver Machine Perfusion System with Static Cold Storage for Organ Preservation Prior to Liver Transplantation ([facility]) ([facility]) IRB No: [id number] IGNITION SPECIALIST: John Louise MD, PhD Pager: COORDINATOR/Research Coordinator/Clinical Nursing Intern: Karyna Lorenzo MS I discussed the above mentioned research protocol with patient and family. All questions were addressed and answered. The IRB approved Informed Consent document was reviewed with the patient. The study purpose, follow up visits, risks, alternatives and costs were discussed. Patient is aware that this study is completely voluntary. A copy of the Informed Consent will be given to the patient, alongwith the Records And Information Manager's contact information. PLAN: - Continue transplant evaluation and present to the selection committee. - CAD with prior PCI, HLD - Will need cardiology consult. - H/o skin CA - Derm consult. Florence Lobato APRN.EMISSIONS TECHNICIAN October 18, 2022 9:23 AM *Patient seen and discussed with Dr. Landry. Staff Attestation: I have participated during the critical or montes portions of the management of the patient. I have reviewed the documentation below and verified the findings in the note as written which has been edited as necessary. Patient is a high-risk candidate for liver transplantation, but there are no absolute contraindications to OLT from a surgical standpoint. Despite his advanced age, he is physically active and functionally independent. Pending cardiology consultation given history of CAD with multiple stents placement. Continue OLT evaluation. Signature: Marco Antonio Landry MD [facility] Miscellaneous Notes* Telephone Encounter - Krissy Horn RN - 10/17/2022 3:03 PM EDT Patient provided dental clearance form completed by local dentist. Pt seen 08/15/22 and is free from active disease and infection, no work needs to be completed at this time. Dental office phone [phone]. Form in file. Krissy Horn RN documented in this encounterK[facility]05-08-[facility]23 History of Present illness Narrative* Juan M Sheriff RRT - 10/16/2022 1:08 PM EDT PULM FUNCTION SMARTBLOCK: Provider: Tevin De La Cruz MD Spirometry: 1 System: MC5 - [id number] documented in this encounterK[facility]05-[facility]-2023 History of Present illness Narrative* Ervin Fernandez, JENNIFER - 10/16/2022 10:30 AM EDT Orthotopic Liver Transplant (OLT) Psychosocial Evaluation Patient: Jesus Sosa Date Evaluated: October 16, 2022 Patient consents to participate in psychosocial evaluation for liver transplant: Yes Patient agrees to have the following present during evaluation: Pt's spouse Stacy Patient Location: Pt seen in-clinic Identifying Information: Pt prefers to be called: Mango Preferred pronoun: his Age: [age] year old Ethnicity: White - White// Heritage [place] Citizen: Yes Preferred Language: Libyan Lives now: Jesus Sosa [id number] [facility] [address] Impressions: Social Support- Patient lives at home with his spouse in a ranch style house in [place], [place]. Patient's spouse Stacy will serve as the primary caregiver, while Hattie Henry will serve as the secondary caregiver. Patient has multiple family and voodoo friends available as additional caregiver support as needed. Patient will stay in [place] for their post-transplant recovery and follow-up period. Insurance/Financial- Patient has adequate insurance coverage for transplant through their Medicare A+B and [employer] Supplement plans. Patient has household income through SSI, a shelter pension, and a spouse's pension. Patient reports that their household income is adequate to cover living expenses and bills, and is adequate to cover transplant related expenses including lodging if needed. Chemical Dependency- Patient has a substance use history that includes use of cigarettes and alcohol until relatively recently. Patient's use of alcohol and cigarettes was relatively limited, and usually only in social situations. Patient does not meet DSM-5 criteria for diagnosis with a substance use disorder. Patientmeets standard guidelines for chemical dependency at this time. Mental Health/Coping- Patient reports a mental health history that includes no psychiatric diagnoses or concerns. Patientis future-oriented, and denies any history of SI/HI. Patient has adequate coping skills for transplant which include prayer, engaging in hobbies, talking with friends, and talking with his spouse. There are no mental health concerns for this patient in proceeding with transplant evaluation and listing. Compliance- There are no compliance concerns for this patient at this time. Comprehension of Medical Issues and Transplant- Patient has good understanding of their condition and associated treatment. Patient has good understanding of the transplant process and post-transplant patient expectations. Patient is a reliable historian and generally accurate with providing information to the medical team. SIPAT Total Score: SIPAT Total Score: 14 SIPAT Score Interpretation 0 - 6 Excellent candidate Recommend to list for transplantation without reservations. 7 - 20 Good candidate Recommend to list for transplantation - although monitoring of identified risk factors may be required. 21 - 39 Minimally Acceptable Candidate Consider Listing. Identified risk factors must be satisfactorily addressed before representing for consideration. 40 - 69 Poor Candidate Recommend deferral while identified risks are satisfactorily addressed. > 70 High Risk candidate, significant risks identified Surgery is not recommended while identified risk factors continue to be present. Recommendations: Recommend patient be approved for liver transplant listing pending completion of OLT evaluation and approval by Selection Committee. Patient is a low psychosocial risk for liver transplant from a social work perspective, and is suitable for listing at this time. Plan: Will plan for follow-up with patient as needed. 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 Date first told of liver disease:About ten years ago, pt was made aware of elevated LFTs. Patient learned of cirrhosis about four years ago. Symptoms: fluid in abdomen (ascites), prominent leg swelling, fatigue, cirrhosis, and esophageal varices Previously evaluated for OLT: NO MELD-Na score: 18 at 10/03/2022 9:16 AM MELD score: 17 at 10/03/2022 9:16 AM Calculated from: Serum Creatinine: 1.49 mg/dL at 10/03/2022 9:16 AM Serum Sodium: 136 mmol/L at 10/03/2022 9:16 AM Total Bilirubin: 3.0 mg/dL at 10/03/2022 9:16 AM INR(ratio): 1.2 at 10/03/2022 9:16 AM Age: 72 years Other medical concerns: CKD, cardiac disease, cataracts, prostate swelling, hx of melanoma Previous surgeries: TIPS, two cardiac stents, cataract surgery, prostectomy PCP: Dr. Willem Madsen Date of last physical: One week ago Other providers/specialists: Hepatology (Dr. De La Cruz), Dermatology, Cardiology Personal History: Born: [place], [place] Grew up where: [place], [place] Parents: Pt was raised by: Mother and father Siblings: Two brothers Pt is the: Youngest Describes upbringing as: Good Life changing events: None Ever ill, abused, neglected as a child: None How far in school: Bachelors degree in Microbiology How was school: Good Learning disabilities: Possible dyslexia as a child, but patient has overcome. 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 Service: None Honorable discharge: N/A VA benefits: N/A Long Term/Intermediate: No Currently on parole/probation: No Any outstanding legal issues: No Relationship status: Name of spouse/partner: Stacy Age: 71 Occupation: Retired Medical concerns: None Quality of relationship: Good Children: No Currently Resides with: Spouse Own/Rent: Owned by patient and spouse Length of time at current residence: 42 years Set up of home: Business Capital[employer] style house Working Utilities: Yes Pets: One dog and one cat-can be cared for at a boarding facility or voodoo member. Hobbies/Interests: Collecting marbles, shooting, engaging in voodoo activities, attending auctions, playing poker. Community Supports: Church: Yes Qu[employer] Other supports: spouse/partner, extended family, friends, and voodoo community Functioning Abilities: ADL's: is independent with all ADL's. 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 How are medications stored/organized: Keeps medications in two-week pillbox. Medication compliance: Good, almost daily or as directed Who else knows medications and where they are located: Pt's spouse. Comprehension of Medical Situation: Level of understanding re: diagnosis, disease, condition: Patient has good understanding of their condition and associated treatment. Knowledge of transplant: Patient has good understanding of the transplant process and post-transplant patient expectations. Know a txp patient: Pt's great-niece had a transplant. Volunteer to contact: Not at this time. History of working with chief medical officer: Patient works well with healthcare providers. Compliant: Good with consistent follow through. Motivation for a transplant: To stay alive for my spouse. Living Donor: None at this time. Discussed MELD score, evaluation process, selection committee, listing, waiting, the call, surgery,hospital recovery time, hospital stay, discharge, intermediate recovery. Financial: Insurance: Medicare A+B with [employer] Medicare Supplement Prescription Coverage : Yes Which [facility] [place] [place] [facility] Coverage for anti-rejection medications: Yes Travel/Lodging Benefits: Unknown Sources of Household income: Patient has household income through SSI, shelter pension, and spouse's pension. Disability (Y/N): No Current Financial Concerns: None Plan for time away from work: N/A Plan for lodging arrangements if needed: Patient will stay at home or locally in [place] for post-transplant lodging during their follow-up period. Fundraising discussed/encouraged: Discussed with patient and provided fundraising information. Potential financial barriers to transplant: None Social Support: Where will you stay for your initial recovery?: Patient will stay at home or locally in [place] for post-transplant lodging during their follow-up period. Primary support person: Stacy Sosa-Pt's spouse Availability 01/01 Driving: Yes Medical/Health Concerns: None Secondary support people: Hattie Henry Contact #: [phone] Availability 01/01 as needed Driving: Yes Medical/Health Concerns: None Who can drive you, be off work, learn your medications, etc.: Pt's spouse or family. Plan for children or pets: Can be cared for by family or at a boarding facility. Other people available: Multiple family members and voodoo friends. Family stressors/disagreements: None If multiple caregivers are identified are they able to work together?: Yes Patient and Care -Partner(s) read and signed- Patient and Tin Plater Commitment: Discussed verbally with patient and caregivers. Mental Health History/Coping: Current Mental Status: Patient is fully alert and oriented. Appearance: Patient appears stated age, is well dressed, and well groomed. Thought Content: Patient displays organized thought content, with appropriate mood and affect. MH History: None Suicidal Ideation/Attempts: None Psychiatric Hospitalizations: None Medications, Counseling, or professional help: None Coping Skills: Prayer, engage in hobbies, talk with friends, talk with spouse Potential barriers to transplant: None Is a referral to Transplant Psychiatry needed?: Not at this time. Tobacco, Drugs, Alcohol Use: Tobacco: Yes, First Use: Early adulthood Last Use: One month ago Frequency: Used to be daily, but is now one cigar monthly) Amount: One cigar or pipe Method: Smoking Alcohol: Yes First Use: Early adulthood Last Use: Two months ago Frequency: Monthly Amount: 1-2 drinks Marijuana: None Cocaine: None Heroin: None LSD: None Uppers/Downers: None Prescription Drugs: None Non Prescription Drugs (OTC): None Did anyone (medical doctors) tell you you should stop drinking and if so, who? Yes, patient is aware to abstain. Problems associated with substance use? None DSM 5 Substance Use Disorder Criteria: Patient does not meet DSM-5 criteria for diagnosis with a substance use disorder. Does the patient meet standard guidelines for chemical Dependency? Patient meets standard guidelines for chemical dependency at this time. Advance Directives: Living Will: Yes Durable Power of Form Press Operator: Yes, pt's spouse Stacy is primary and niece Thom is secondary. On filein EMR. Information given: Patient confirms the accuracy and validity of DHPOA on file. BETSY Singleton LISW-Marcelo October 16, 2022 10:16 AM documented in this encounterK[facility]05-[facility]-2023 History of Present illness Narrative* Chery Carlos RN - 10/13/2022 10:20 AM EDT The following information has been provided/discussed with the patient/family during Shared MedicalAppointment education class: Informed Consent for Organ Transplant Program Participation version April 11, 2021. SRTR information provided and questions answered. Informed patient to call media coordinator with any questions. UNOS information regarding multiple listings for organ transplantation A copy of [place] [facility] (OSOTC) criteria. The information was reviewed with patient and all questions answered. Evaluation process including presentation to selection committee, OSOTC approval and listing criteria Surgical procedure, including post-operative management, hospitalization, immunosuppressive medications and their side effects (including the risk for hypertension, diabetes, kidney problems and cancers) and intermediate follow up after transplant. Possibility of recurrent disease discussed with patient. Patient was advised that if they choose not to proceed with transplant, alternative treatment will be provided Potential medical or psychosocial risks Discussed organ donor risk factors including potential risk of developing transmissible disease including but not limited to HIV, hepatitis B and C, malaria, and malignancy. Patient's right to decline such offers for transplant was also addressed Patient was provided with [facility] information sheet regarding transplantation of HepatitisC viremic organs into Hepatitis C negative recipients. Risks and benefits of hepatitis C transplantand treatment were discussed. Patient was advised that he/she can refuse transplantation at any time prior to transplant without any penalty. Patient advised that transplants not performed in a medicare-approved hospital may negatively affect payment for medication coverage by Medicare Part B. INFORMED CONSENT Jesus Sosa Medical Record: [id number] Informed consent for Organ Transplant Program Participation Informed Consent for Organ Transplant Program Participation version April 11, 2021 was providedto patient. The risks, benefits, alternatives and anticipated outcomes of the Organ Transplant Program Participation, and tasks of the personnel to be involved were discussed with the patient. The patient consents to participation in the Organ Transplant Program. The patient was provided an opportunity to ask questions and have questions answered. Chery Carlos RN October 13, 2022 documented in this encounterKettering Health05-04-2023 Miscellaneous Notes* Telephone Encounter - Rogelio Live - 10/12/2022 11:14 AM EDT Spoke with patient to confirm scheduled Liver Transplant evaluation for next week. Confirm that patient received their OLT evaluation schedule: Yes Is the pt scheduled for virtual education? Yes -If YES, confirm that pt has set up zoom and remind pt of time/date for appt Does the pt have any questions about their schedule: No If they are not on MyChart, did they receive the information packet? Yes Remind patient to fast for 12 hours prior to lab draw Yes Does the pt have alcohol-associated liver disease? No Have you had a transfusion of any blood product (blood, plasma, platelets) in the past 2 weeks? No. If yes, document date and notify intake nurse. Does patient have to hold Beta Analia No. if YES, remind pt to hold for 3 days prior to DSE. documented in this encounterKettering Health05-04-2023 History of Present illness Narrative* Yusuf Russell MD - 10/12/2022 8:55 AM EDT Consultation requested by Dr. Madsen for an opinion regarding a right groin and umbilical bulge.My final recommendations will be communicated back to the requesting physician by way of shared medical record or letter via US mail. Jesus Sosa is a 72 year old male who presents with a right groin and umbilical bulge. The umbilical hernia is recurrent after primary repair (during prostatectomy). He has cirrhosis and is nowa few weeks s/p TIPS. Liver transplant is not immanent so we'll plan for an open right inguinal hernia repair since that's most symptomatic and if that goes smooth we might even re-do the umbilical with or without mesh (onlay?). Yusuf Russell MD I have seen and evaluated the patient and discussed the case with the resident physician. I agree with the assessment and plan as documented in the resident s note including a ROS that was reviewed and negative other than what was indicated in our notes. Patient consented for study? Not applicable documented in this encounterKettering Health05-04-2023 History and physical note * Mauro Hoskins MD - 10/12/2022 8:36 AM EDT [facility] - HISTORY AND PHYSICAL Chief Complaint: Right inguinal hernia HPI: Jesus Sosa is a 72 year old male with complicated past medical history to include HTN, VANESSA on CPAP, DURANT cirrhosis c/b esophageal varices, CKD, CAD s/p PCI (2017), prostate cancer s/p prostatectomy, who presents with right inguinal hernia. He notes a right inguinal hernia that he noticed 8 weeks ago following getting out of bed. Around this time he was having issues with ascites related to his Durant cirrhosis. He recently underwent a TIPS procedure on 20 September with interval improvement in his ascites, has had significantly less volumetaken from paracentesis since procedure. He currently notes discomfort with his hernia however it is always been soft and reducible denies any issues with obstructions. Notably he also has a umbilical hernia which is repaired primarily during a robotic prostatectomy at [facility] in 2021. This is also recurred in the interim. No mesh was placed in the repair of this. He has a number of other medical comorbidities And has required thoracentesis recently with 3 L output. He is currently being evaluated for liver transplant. Relevant previous operations include: 2021 - prostatectomy, TIPS 10/01 No history of Psychiatric Disorders or Opioid Use Partially dependent No employment Unknown Hepatic insufficiency or liver failure, Ascites - hepatic, Hypertension, Diabetes Mellitus, Dyspnea N/A PAST MEDICAL HISTORY Diagnosis Date Abnormal LFTs (liver function tests) 06/27/2013 F/U [facility] Arthritis Ascites Asthma Bladder neck obstruction 05/26/2009 BPH with obstruction/lower urinary tract symptoms BPH with obstruction/lower urinary tract symptoms 08/24/2008 Chronic prostatitis 05/26/2009 CKD (chronic kidney disease) Coronary artery disease Elevated prostate specific antigen (PSA) 07/19/2007 Esophageal reflux 1998 admitted for chest pain Esophageal varices (HCC) Essential hypertension 04/02/2009 Former cigar smoker Hepatic fibrosis (HCC) on elastography 02/09/2018 Dr. Kelby Suarez. 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 Pleural effusion associated with hepatic disorder PMH - PAST MEDICAL HISTORY OF 1998 shingles without rash Portal vein thrombosis RBBB (right bundle branch block) 03/30/2009 Right inguinal hernia 10/03/2022 Skin cancer nose, face, ears Snoring Splenomegaly Stented coronary artery 07/18/2017 MICHELLE to diagonal and mid LAD. Tubular adenoma of colon 02/08/2017 Umbilical hernia 01/08/2014 Unspecified essential hypertension 04/02/2009 PAST SURGICAL HISTORY Procedure Laterality Date CC CORONARY STENT 07/18/2017 MICHELLE x 2 to mild LAD and diagonal COLONOSCOPY FLX DX W/COLLJ SPEC WHEN PFRMD 02/08/2017 Colonoscopy COLONOSCOPY FLX DX W/COLLJ SPEC WHEN PFRMD 01/07/2020 Colonoscopy CYSTOSCOPY 10/12/2020 EGD 02/01/2021 EGD 01/05/2022 ESOPHAGOGASTRODUODENOSCOPY TRANSORAL DIAGNOSTIC 01/07/2020 EGD INSERT HEPATIC SHUNT (TIPS) 09/20/2022 Transjugular Intrahepatic Portosystemic Shunt PARACENTESIS PROSTATE NEEDLE BIOPSY 05/19/2009 PROSTATE NEEDLE BIOPSY 01/02/2013 PROSTATECTOMY SUPRAPUBIC SUBTOTAL 1/2 STAGES 08/08/2021 + Umbilical hernia repair REMV CATARACT EXTRACAP,INSERT LENS 10/18/2020 10/04/20, 10/18/20 Social History Tobacco Use Smoking status: Former Types: Cigars Smokeless tobacco: Never Tobacco comments: Last cigar 07/17/2017 Vaping Use Vaping Use: Never used Substance Use Topics Alcohol use: Not Currently Alcohol/week: 5.0 standard drinks Types: 1 Glasses of Wine (5oz), 1 Mixed Drinks per week Comment: may have a drink once per month Drug use: No Additional social history not relevant to the patient's HPI FAMILY HISTORY Problem Relation Age of Onset Arthritis Mother Heart Mother Pacemaker Stroke Mother w/ bowel obstruction Cancer Mother skin Heart Father Pacemaker Cancer Father skin Lipids Brother Lipids Brother Anesthesia Problems No Family History Additional family history not relevant to the patient's HPI ALLERGIES Allergen Reactions Ttlzeco-Pke-Nxu Red* Itching Current Outpatient Medications Medication Sig Dispense Refill furosemide (LASIX) 40 mg tablet Take 40 mg by mouth twice daily. Cholecalciferol, Vitamin D3, (VITAMIN D-3) 50 mcg (2,000 unit) cap Take 1 capsule by mouth once daily. 90 capsule 3 alirocumab (PRALUENT PEN) 150 mg/mL Inject 150 mg subcutaneously every 2 weeks. Per cabbage salter.inplace of statin aspirin(ECOTRIN LOW STRENGTH 81 MG TAB) Take one(1) tablet daily. 0 No current facility-administered medications for this visit. REVIEW OF SYSTEMS GENERAL: No weight loss, malaise or fevers. RESPIRATORY: Negative for cough, hemoptysis, wheezing, COPD, dyspnea or shortness of breath CARDIOVASCULAR: Negative for chest pain, leg swelling, hypertension, CHF or palpitations GI: No nausea, vomiting, or diarrhea : No history of dysuria, frequency or incontinence The remainder of the 12 review of systems is negative other than what was mentioned in the HPI and above. BP 150/50 Pulse 88 Temp 36.6 C (97.9 F) (Temporal) Ht 174 cm (5' 8.5) Wt 93 kg (205 lb) BMI 30.72 kg/m Physical findings of this patient are as follows (COMPLETE 10 INCLUDING HEART AND LUNG EXAM OR CHOOSE NORMAL EXAM IF APPROPRIATE): Physical Exam Physical Exam Constitutional: The patient is well-developed, well-nourished, and in no distress. Head: Normocephalic and atraumatic. Eyes: Pupils are equal, round, and reactive to light. EOM are normal. Neck: Normal range of motion. Neck supple. Cardiovascular: Regular rhythm and normal heart sounds. Pulmonary/Chest: Effort normal and breath sounds normal. Abdominal: Soft. Bowel sounds are normal. Musculoskeletal: Normal range of motion. Neurological: He is alert. GCS score is 15. Skin: Skin is warm and dry. Psychiatric: Affect and judgment normal. Relevant Hernia Findings - There is a large umbilical hernia, soft, reducible. There is a palpable R inguinal hernia, soft, reducible LABS: Hemoglobin A1C (%) Date Value 12/24/2020 5.2 02/10/2020 5.3 04/09/2019 5.6 02/08/2018 5.7 07/13/2017 6.4 IMAGING - Reviewed with staff Assessment: Jesus Sosa is a 72 year old male who presents with right inguinal hernia and umbilical hernia. Plan: Consented to right inguinal hernia repair and possible umbilical hernia repair Mauro Hoskins MD Surgery Resident - PGY1 9:09 AM 10/12/2022 documented in this encounterKettering Health05-04-2023 Nurse Note* Melyssa Ochoa Ma - 10/12/2022 8:28 AM EDT What is the reason for your visit today? consult Who is your referring physician? Are you having poor oral intake? NO Have you had unintentional weight loss of 15 lbs/7 Kg in the last 3-6 months? NO Bowels: regular Wound: clean & dry Temperature: No Drains: No documented in this encounterKettering Health05-02-2023 History of Present illness Narrative* Kristen Aviles APRN.EMISSIONS TECHNICIAN - 10/10/2022 10:29 AM EDT CC: Patient presents with: XRAY FOLLOW UP HPI Jesus Sosa is a 72 year old male who presents today for above. Patient had chest x-ray on 10/03, ordered by GI. He received a letter in the mail that there were unexpected findings on his x-rayand to discuss with PCP. Patient was unaware that GI already ordered CT chest per radiologist recommendations. Findings were concerning for possible pneumonia.He had thoracentesis on 10/09, three liters were removed. Follow-up chest x-ray after procedure continued to show possible pneumonia. Patient denies cough, wheezing, SOB, fever, chills, fatigue, body aches, poor appetite. Prior to thoracentesis patient was concerned about significant increase in generalized edema, especially both scrotum and BLE. An ultrasound was done that was negative for DVT, patient messaged his GI with these concerns. GI recommended low salt diet, elevating legs and resuming Lasix and Aldactoneevery other day. Patient did not read my chart message. He reports edema has improved a little. Denies SOB, chest pain, palpitations, PND, orthopnea. REVIEW OF SYSTEMS See HPI PAST MEDICAL HISTORY Diagnosis Date Abnormal LFTs (liver function tests) 06/27/2013 F/U [facility] Arthritis Ascites Asthma Bladder neck obstruction 05/26/2009 BPH with obstruction/lower urinary tract symptoms BPH with obstruction/lower urinary tract symptoms 08/24/2008 Chronic prostatitis 05/26/2009 CKD (chronic kidney disease) Coronary artery disease Elevated prostate specific antigen (PSA) 07/19/2007 Esophageal reflux 1998 admitted for chest pain Esophageal varices (HCC) Essential hypertension 04/02/2009 Former cigar smoker Hepatic fibrosis (HCC) on elastography 02/09/2018 Dr. Kelby Suarez. 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 Pleural effusion associated with hepatic disorder PMH - PAST MEDICAL HISTORY OF 1998 shingles without rash Portal vein thrombosis RBBB (right bundle branch block) 03/30/2009 Right inguinal hernia 10/03/2022 Skin cancer nose, face, ears Snoring Splenomegaly Stented coronary artery 07/18/2017 MICHELLE to diagonal and mid LAD. Tubular adenoma of colon 02/08/2017 Umbilical hernia 01/08/2014 Unspecified essential hypertension 04/02/2009 PAST SURGICAL HISTORY Procedure Laterality Date CC CORONARY STENT 07/18/2017 MICHELLE x 2 to mild LAD and diagonal COLONOSCOPY FLX DX W/COLLJ SPEC WHEN PFRMD 02/08/2017 Colonoscopy COLONOSCOPY FLX DX W/COLLJ SPEC WHEN PFRMD 01/07/2020 Colonoscopy CYSTOSCOPY 10/12/2020 EGD 02/01/2021 EGD 01/05/2022 ESOPHAGOGASTRODUODENOSCOPY TRANSORAL DIAGNOSTIC 01/07/2020 EGD INSERT HEPATIC SHUNT (TIPS) 09/20/2022 Transjugular Intrahepatic Portosystemic Shunt PARACENTESIS PROSTATE NEEDLE BIOPSY 05/19/2009 PROSTATE NEEDLE BIOPSY 01/02/2013 PROSTATECTOMY SUPRAPUBIC SUBTOTAL 1/2 STAGES 08/08/2021 + Umbilical hernia repair REMV CATARACT EXTRACAP,INSERT LENS 10/18/2020 10/04/20, 10/18/20 ALLERGIES Dcrqccf-Aig-Uml Reductase Inhibitors MEDICATIONS Cholecalciferol, Vitamin D3, (VITAMIN D-3) 50 mcg (2,000 unit) cap Take 1 capsule by mouth once daily. alirocumab (PRALUENT PEN) 150 mg/mL Inject 150 mg subcutaneously every 2 weeks. Per cabbage salter.inplace of statin aspirin(ECOTRIN LOW STRENGTH 81 MG TAB) Take one(1) tablet daily. FAMILY HISTORY Problem Relation Age of Onset Arthritis Mother Heart Mother Pacemaker Stroke Mother w/ bowel obstruction Cancer Mother skin Heart Father Pacemaker Cancer Father skin Lipids Brother Lipids Brother Anesthesia Problems No Family History Social History Tobacco Use Smoking status: Former Types: Cigars Smokeless tobacco: Never Tobacco comments: Last cigar 07/17/2017 Vaping Use Vaping Use: Never used Substance Use Topics Alcohol use: Not Currently Alcohol/week: 5.0 standard drinks Types: 1 Glasses of Wine (5oz), 1 Mixed Drinks per week Comment: may have a drink once per month Drug use: No PHYSICAL EXAM BP 118/58 Pulse 90 Resp 20 Wt 93.9 kg (207 lb) BMI 31.01 kg/m General Appearance: well appearing, in no acute distress, alert Lungs: Lung sounds diminished right middle and lower lobes. No rales, wheezing, rhonchi Heart: RRR without murmur, gallop, or rubs. No ectopy Extremities: Good capillary refill. Pulses: 1+, Edema: 2-3+ pitting BLE, No cords. No calf tenderness. DATA REVIEWED: Most recent labs and imaging results. ASSESSMENT/PLAN: 1. Bilateral lower extremity edema - ICD9: 782.3, ICD10: R60.0 (primary diagnosis) Some improvement. No alarm symptoms or exam findings. Reviewed My Chart message from Dr. De La Cruz with patient. He has aldactone and Lasix at home and will start taking every other day. Recheck labsnext week as instructed. 2. Abnormal x-ray - ICD9: 793.99, ICD10: R93.89 Questionable pneumonia on chest x-ray. Patient is asymptomatic, antibiotics are not indicated. Chest CT next week as scheduled Prescription instructions reviewed with patient as applicable. Potential red flag symptoms discussed with the patient. Reviewed appropriate action plan to take if red flag symptoms occur. Patient agreeable to treatment plan. Kristen Aviles APRN.CNP documented in this encounterKettering Health05-01-2023 Miscellaneous Notes* Telephone Encounter - Tevin De La Cruz MD - 10/09/2022 10:28 PM EDT Katerine Can you please return the call, and let him know: The labs look Ok - the creatinine is downtrending (though still not yet to background / baseline), implying that his renal function is improved / improving Realistically, the TIPs will not impact the tendency to hold on to fluid in the peripheral tissues / lower extremities - the only options are a low salt diet and if possible, intermittent diuretics I think it would be reasonable to try every other day lasix + aldactone - does he still have some? He should continue to follow his weights daily, and stick to a 2,000 mg sodium diet I would also want to recheck his renal function in a week or so (I think he has standing orders forlabs), and then check in w us Thanks * Telephone Encounter - Katerine Velasquez RN - 10/09/2022 9:51 AM EDT Pt sent the following MCM for review: Dr. De La Cruz have you had a chance to look at my latest blood work post TIPS procedure? I am having a lot of swelling in my legs, scrotum and now is in my hands as the day progresses. I was to have a paracentesis today but not enough fluid to be able to do that; however, they sent me to ultrasound to check for blood clots in my legs and arms. Result were negative. I am scheduled for a thorocentesis on Sunday. Wondering if the swelling is primarily because of the lack of diurets in my system. Thanks, Mango Sosa Pt given precautions of when to present to ED if necessary. Please review and advise. Katerine Velasquez RN October 09, 2022 9:52 AM documented in this encounterKettering Health05-01-2023 History of Present illness Narrative* RT Julia(R) - 10/09/2022 1:20 PM EDT Radiology Service Progress Note PATIENT NAME: Jesus Sosa DATE OF SERVICE: October 09, 2022 TIME: 1:38 PM PATIENT IDENTITY VERIFICATION COMPLETED USING TWO (2) IDENTIFIERS: Name and Date of confirmedby patient verbally. FALL SCREENING: Has the patient had 2 falls in the last year or 1 fall with injury or currently using an Ambulatory Assistive Device (Walker, Cane, Wheelchair, Crutches, etc.)? No PATIENT GENDER DATA: Male PATIENT RELEVANT IMPLANT DATA REVIEWED: Not Applicable RADIOLOGY DEPARTMENT: General X-ray: Exam(s) Completed: Chest X-Ray PERIPHERAL IV DATA: Not applicable SIGNED BY: RT Julia(R) October 09, 2022 1:38 PM documented in this encounterKettering Health05-01-2023 History of Present illness Narrative* Arsalan Dawkins MD - 10/09/2022 1:14 PM EDT Needed to order x-ray post-thoracentesis. Arsalan Dawkins MD documented in this encounterKettering Health05-01-2023 Surgical operation note* Brief Op Note - Arsalan Dawkins MD - 10/09/2022 11:32 AM EDT THORACENTESIS NOTE SERVICE DATE: 10/09/2022 SERVICE TIME: 12 pm LOCATION: Inpatient, 3 PROCEDURE: Right Thoracentesis with Ultrasound guidance RECREATION MANAGER: Arsalan Dawkins MD AND DRYING SUPERVISOR COOKING CASING: Dr Gloria Calero REFERRING PHYSICIAN/SERVICE Dr Tevin De La Cruz PRE - PROCEDURE DIAGNOSIS: Hepatic Hydrothorax POST PROCEDURE DIAGNOSIS: Pleural effusion INDICATION: Therapeutic SAFE PRACTICE: Informed consent obtained and filed in patient's chart. SAFE PRACTICE Sign in Communication: Completed. Time Out: The procedural team confirmed the Correct Patient, the Correct Procedure, the Correct Site and the Correct Position (if applicable) during the audible time out: Completed. Sign Out Communication: Completed. PROCEDURE START TIME: 11:46 am IMAGING GUIDANCE: Ultrasound was used. Images were recorded. ULTRASOUND FINDINGS: The Right chest was scanned using ultrasound. A moderate sized effusion was seen. Septations: Absent. Pleural nodules: Absent. Pleural thickening was Absent. ANESTHESIA: Local, using 10 ml of 1% Lidocaine. SEDATION: No PROCEDURE DETAIL: After scanning the chest the appropriate site for thoracentesis was marked and was prepped using Chlorhexidine Gluconate Local anesthesia was administered. A standard thoracentesis needle and catheter were advanced into the right fluid collection without any difficulty. Once the fluid collection was found, the catheter was advanced further into the pleural space, the needle was removed, and drainage was initiated using a wall suction method. Once drainage was completed the catheter was removed and the site was bandaged. The fluid was sent to the lab for further analysis. FLUID COLOR: Straw colored TOTAL FLUID REMOVED: 3130 mL THORACENTESIS PRESSURES: Intrapleural pressures not measured. PROCEDURE END TIME: 12:14 pm PROCEDURE TERMINATED DUE TO: Cough IMMEDIATE COMPLICATIONS: None POST PROCEDURE ULTRASOUND: done, with the following findings: improvement in pleural effusion without evidence of pneumothorax IMPRESSION: Completed Right thoracentesis with approximately 3130 mL of fluid withdrawal. Estimatedblood loss: Minimal. I was present for the entire procedure. This service has been performed in part by a resident/fellow under attending's direction. SIGNATURE: Arsalan Dawkins MD PATIENT NAME: Jesus Sosa DATE: October 09, 2022 TIME: 11:32 AM PAGER/CONTACT #: Associated attestation - Gloria Calero MD - 10/09/2022 12:33 PM EDT Pulm Staff: I was present for and supervised the entire procedure. Gloria Calero MD October 09, 2022 12:33 PM documented in this [facility]05-01-2023 Miscellaneous Notes* Telephone Encounter - Katerine Velasquez RN - 10/09/2022 9:48 AM EDT MCM sent to Dr. De La Cruz in telephone encounter. Katerine Velasquez RN October 09, 2022 9:52 AM documented in this [facility]04-28-2023 Miscellaneous Notes* Sedation Documentation - Thom Rutherford RN - 10/06/2022 8:37 AM EDT Ultrasound only no paracentesis. documented in this [facility]04-26-2023 History of Present illness Narrative* Aylin Candelaria LPN - 10/04/2022 11:03 AM EDT Patient presents for Hepatitis B vaccine. Denies any problems at this time. Tolerated injection well. Aylin Candelaria LPN documented in this [facility]04-25-2023 Miscellaneous Notes* Telephone Encounter - Jenise Pearce RN - 10/03/2022 8:[address] [facility] Referral for Liver Transplant This is a 72 year old male with DURANT liver disease referred for OLT evaluation by Dr. De La Cruz. I spoke with Patient today and obtained all necessary information. Full eval will be scheduled per protocol. Additional consults needed: cardiology re: CAD s/p stenting in 2018 Pt has had a previous liver transplant evaluation: No Instructed Patient to get dental clearance and provide the following medical records: dermatology clearance. Patient instructed to review liver transplant information online at [email or web address] or paperinformation sent via Compliance Control and to have someone accompany them to appointments. All questions answered. Contact information provided and advised to call our office with any questions/concerns or schedule changes. Will schedule eval week of 10/16/22 (no appts on 10/17/22). MELD Na: MELD-Na score: 18 at 10/03/2022 9:16 AM MELD score: 17 at 10/03/2022 9:16 AM Calculated from: Serum Creatinine: 1.49 mg/dL at 10/03/2022 9:16 AM Serum Sodium: 136 mmol/L at 10/03/2022 9:16 AM Total Bilirubin: 3.0 mg/dL at 10/03/2022 9:16 AM INR(ratio): 1.2 at 10/03/2022 9:16 AM Age: 72 years Disclaimer: The MELD Calculator cannot calculate MELD scores for patients on dialysis. Medical History: PAST MEDICAL HISTORY Diagnosis Date Abnormal LFTs (liver function tests) 06/27/2013 F/U [facility] Arthritis Ascites Asthma Bladder neck obstruction 05/26/2009 BPH with obstruction/lower urinary tract symptoms BPH with obstruction/lower urinary tract symptoms 08/24/2008 Chronic prostatitis 05/26/2009 CKD (chronic kidney disease) Coronary artery disease Elevated prostate specific antigen (PSA) 07/19/2007 Esophageal reflux 1999 admitted for chest pain Esophageal varices (HCC) Essential hypertension 04/02/2009 Former cigar smoker Hepatic fibrosis (HCC) on elastography 02/09/2018 Dr. Kelby Suarez. 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 Pleural effusion associated with hepatic disorder PMH - PAST MEDICAL HISTORY OF 1998 shingles without rash Portal vein thrombosis RBBB (right bundle branch block) 03/30/2009 Right inguinal hernia 10/03/2022 Skin cancer nose, face, ears Snoring Splenomegaly Stented coronary artery 07/18/2017 MICHELLE to diagonal and mid LAD. Tubular adenoma of colon 02/08/2017 Umbilical hernia 01/08/2014 Unspecified essential hypertension 04/02/2009 Surgical History: PAST SURGICAL HISTORY Procedure Laterality Date CC CORONARY STENT 07/18/2017 MICHELLE x 2 to mild LAD and diagonal COLONOSCOPY FLX DX W/COLLJ SPEC WHEN PFRMD 02/08/2017 Colonoscopy COLONOSCOPY FLX DX W/COLLJ SPEC WHEN PFRMD 01/07/2020 Colonoscopy CYSTOSCOPY 10/12/2020 EGD 02/01/2021 EGD 01/05/2022 ESOPHAGOGASTRODUODENOSCOPY TRANSORAL DIAGNOSTIC 01/07/2020 EGD INSERT HEPATIC SHUNT (TIPS) 09/20/2022 Transjugular Intrahepatic Portosystemic Shunt PARACENTESIS PROSTATE NEEDLE BIOPSY 05/19/2009 PROSTATE NEEDLE BIOPSY 01/02/2013 PROSTATECTOMY SUPRAPUBIC SUBTOTAL 1/2 STAGES 08/08/2021 + Umbilical hernia repair REMV CATARACT EXTRACAP,INSERT LENS 10/18/2020 10/04/20, 10/18/20 Last Weight: 200 Lbs Mobility aid: None Substance History: Smoking: Yes: Amount: pipe/cigars, # of years: off and on since collete, Last use: 2017 Cough: No Hoarseness: No ETOH: Yes: Last Drink: 2mo ago, would have liquor rarely, Rehab: No Drugs: No I advised pt to abstain from alcohol and/or drug use: Yes I advised pt to enroll in a chemical dependency program: No Health Maintenance: Last Mammogram: Not applicable Last Pap: Not applicable Last Dental Exam: 08/15/22 Last Derm Visit: Jun-Jul, no FBSE, has appt 11/07/22 for FBSE Last Colonoscopy: 01/07/20 Last Endoscopy: 07/08/21 Medications: Beta Analia: No Current Outpatient Medications Medication Sig Dispense Refill Cholecalciferol, Vitamin D3, (VITAMIN D-3) 50 mcg (2,000 unit) cap Take 1 capsule by mouth once daily. 90 capsule 3 alirocumab (PRALUENT PEN) 150 mg/mL Inject 150 mg subcutaneously every 2 weeks. Per cabbage salter.inplace of statin aspirin(ECOTRIN LOW STRENGTH 81 MG TAB) Take one(1) tablet daily. 0 No current facility-administered medications for this visit. ALLERGIES Allergen Reactions [id number] Red* Itching Vaccination History (from previous 10 years - Covid, Hepatitis A and B, Tetanus, Zostivax, Flu, Pneumonia, etc.): Epic Jenise Pearce RN [facility] History of Present illness Narrative* Florence Baez RN - 10/03/2022 7:59 AM EDT [facility] Telephonic Outreach Provider Action/FYI CKD monthly Contacted for: Routine Telephonic Outreach Contact made with patient: Yes Patient identified by name and date of . Discussed care with patient Are you experiencing any new or worsening symptoms you need to talk about today? No Disease Specific -recent TIPS procedure -incisions are slowly healing -has paracentesis scheduled for Sunday as he is gaining some fluid and notes increase in shortness of breath with more activity -working with liver transplant team as well Do you check your blood pressure at home? No Do you have new or worsening shortness of breath with activity? No Do you feel like you are dehydrated for any reason, including not being able to eat or drink normally, or having less urine/much darker urine than normal for you? No Do you check your daily weight at home? Yes, Have you noticed a sudden gain in weight greater than three pounds in a day or three pounds in a week? 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 Routed to: No Action Needed NILSON Education Provided this Outreach: No Florence Baez RN October 03, 2022 [facility] Miscellaneous Notes* Telephone Encounter - YMUIKO Chavez - 09/29/2022 1:03 PM EDT Patient has been identified by name and date of : Yes, Patient phones for refill(s): Requested Prescriptions Pending Prescriptions Disp Refills Cholecalciferol, Vitamin D3, (VITAMIN D-3) 50 mcg (2,000 unit) cap Sig: Take 1 capsule by mouth once daily. Date of last office visit in primary care: [facility] 09/04/2022 Appointment scheduled 10/02/22 Last 2 Encounter Wt Readings: Date: Wt: 09/15/2022 91.3 kg (201 lb 3.2 oz) 09/12/2022 91.3 kg (201 lb 3.2 oz) Please advise. Thank you. YUMIKO Chavez [facility] History of Past illness Narrative* Problem Noted Date Resolved Date Status post chest tube placement 09/20/2022 09/27/2022 Urinary retention 09/20/2022 09/27/2022 BPH associated with nocturia 08/08/202112/2022 Abnormal result of iron profile testing 07/15/19 18 01/11/2022 Overview: Dr.Vincent Suarez Occult GI bleeding 01/19/2017 07/31/2017 Bladder mass 02/24/2016 07/07/2016 Rash 01/14/2015 04/17/2019 Abnormal LFTs (liver function tests) 06/27/2013 01/06/2021 Overview: Dr. Kelby Suarez, GI/hepatology. 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 Elevated prostate specific antigen (PSA) 008 07/31/2017 documented as of this encounter (statuses as of 09/29/2022) [facility] History of Past illness Narrative* Problem Noted Date Resolved Date Status post chest tube placement 09/20/2022 09/27/2022 Urinary retention 09/20/2022 09/27/2022 BPH associated with nocturia 08/08/202112/2022 Abnormal result of iron profile testing 07/15/1901/11/2022 Overview: Dr.Vincent Suarez Occult GI bleeding 01/19/2017 07/31/2017 Bladder mass 02/24/2016 07/07/2016 Rash 01/14/2015 04/17/2019 Abnormal LFTs (liver function tests) 06/27/2013 01/06/2021 Overview: Dr. Kelby Suarez, GI/hepatology. 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 Elevated prostate specific antigen (PSA) 008 07/31/2017 documented as of this encounter (statuses as of 10/03/2022) [facility] History of Past illness Narrative* Problem Noted Date Resolved Date Status post chest tube placement 09/20/2022 09/27/2022 Urinary retention 09/20/2022 09/27/2022 BPH associated with nocturia 08/08/202112/2022 Abnormal result of iron profile testing 07/15/19 18 01/11/2022 Overview: Dr.Vincent Suarez Occult GI bleeding 01/19/2017 07/31/2017 Bladder mass 02/24/2016 07/07/2016 Rash 01/14/2015 04/17/2019 Abnormal LFTs (liver function tests) 06/27/2013 01/06/2021 Overview: Dr. Kelby Suarez, GI/hepatology. 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 Elevated prostate specific antigen (PSA) 008 07/31/2017 documented as of this encounter (statuses as of 10/04/2022) [facility] History of Past illness Narrative* Problem Noted Date Resolved Date Status post chest tube placement 09/20/2022 09/27/2022 Urinary retention 09/20/2022 09/27/2022 BPH associated with nocturia 08/08/202112/2022 Abnormal result of iron profile testing 07/15/19 18 01/11/2022 Overview: Dr.Vincent Suarez Occult GI bleeding 01/19/2017 07/31/2017 Bladder mass 02/24/2016 07/07/2016 Rash 01/14/2015 04/17/2019 Abnormal LFTs (liver function tests) 06/27/2013 01/06/2021 Overview: Dr. Kelby Suarez, GI/hepatology. 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 Elevated prostate specific antigen (PSA) 008 07/31/2017 documented as of this encounter (statuses as of 10/04/2022) [facility] of Past illness Narrative* Problem Noted Date Resolved Date Status post chest tube placement 09/20/2022 09/27/2022 Urinary retention 09/20/2022 09/27/2022 BPH associated with nocturia 08/08/202112/2022 Abnormal result of iron profile testing 07/15/19 18 01/11/2022 Overview: Dr.Vincent Suarez Occult GI bleeding 01/19/2017 07/31/2017 Bladder mass 02/24/2016 07/07/2016 Rash 01/14/2015 04/17/2019 Abnormal LFTs (liver function tests) 06/27/2013 01/06/2021 Overview: Dr. Kelby Suarez, GI/hepatology. 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 Elevated prostate specific antigen (PSA) 008 07/31/2017 documented as of this encounter (statuses as of 10/04/2022) [facility] of Past illness Narrative* Problem Noted Date Resolved Date Status post chest tube placement 09/20/2022 09/27/2022 Urinary retention 09/20/2022 09/27/2022 BPH associated with nocturia 08/08/202112/2022 Abnormal result of iron profile testing 07/15/1901/11/2022 Overview: Dr.Vincent Suarez Occult GI bleeding 01/19/2017 07/31/2017 Bladder mass 02/24/2016 07/07/2016 Rash 01/14/2015 04/17/2019 Abnormal LFTs (liver function tests) 06/27/2013 01/06/2021 Overview: Dr. Kelby Suarez, GI/hepatology. 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 Elevated prostate specific antigen (PSA) 008 07/31/2017 documented as of this encounter (statuses as of 10/09/2022) [facility] Past [facility] Narrative* Problem Noted Date Resolved Date Status post chest tube placement 09/20/2022 09/27/2022 Urinary retention 09/20/2022 09/27/2022 BPH associated with nocturia 08/08/202112/2022 Abnormal result of iron profile testing 07/15/19 18 01/11/2022 Overview: Dr.Vincent Suarez Occult GI bleeding 01/19/2017 07/31/2017 Bladder mass 02/24/2016 07/07/2016 Rash 01/14/2015 04/17/2019 Abnormal LFTs (liver function tests) 06/27/2013 01/06/2021 Overview: Dr. Kelby Suarez, GI/hepatology. 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 Elevated prostate specific antigen (PSA) 008 07/31/2017 documented as of this encounter (statuses as of 10/09/2022) [facility] Past illness Narrative* Problem Noted Date Resolved Date Status post chest tube placement 09/20/2022 09/27/2022 Urinary retention 09/20/2022 09/27/2022 BPH associated with nocturia 08/08/202112/2022 Abnormal result of iron profile testing 07/15/19 18 01/11/2022 Overview: Dr.Vincent Suarez Occult GI bleeding 01/19/2017 07/31/2017 Bladder mass 02/24/2016 07/07/2016 Rash 01/14/2015 04/17/2019 Abnormal LFTs (liver function tests) 06/27/2013 01/06/2021 Overview: Dr. Kelby Suarez, GI/hepatology. 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 Elevated prostate specific antigen (PSA) 008 07/31/2017 documented as of this encounter (statuses as of 10/10/2022) [facility] Past [facility] Narrative* Problem Noted Date Resolved Date Status post chest tube placement 09/20/2022 09/27/2022 Urinary retention 09/20/2022 09/27/2022 BPH associated with nocturia 08/08/202112/2022 Abnormal result of iron profile testing 07/15/19 18 01/11/2022 Overview: Dr.Vincent Suarez Occult GI bleeding 01/19/2017 07/31/2017 Bladder mass 02/24/2016 07/07/2016 Rash 01/14/2015 04/17/2019 Abnormal LFTs (liver function tests) 06/27/2013 01/06/2021 Overview: Dr. Kelby Suarez, GI/hepatology. 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 Elevated prostate specific antigen (PSA) 008 07/31/2017 documented as of this encounter (statuses as of 10/10/2022) [facility] of Past illness Narrative* Problem Noted Date Resolved Date Status post chest tube placement 09/20/2022 09/27/2022 Urinary retention 09/20/2022 09/27/2022 BPH associated with nocturia 08/08/202112/2022 Abnormal result of iron profile testing 07/15/19 18 01/11/2022 Overview: Dr.Vincent Suarez Occult GI bleeding 01/19/2017 07/31/2017 Bladder mass 02/24/2016 07/07/2016 Rash 01/14/2015 04/17/2019 Abnormal LFTs (liver function tests) 06/27/2013 01/06/2021 Overview: Dr. Kelby Suarez, GI/hepatology. 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 Elevated prostate specific antigen (PSA) 008 07/31/2017 documented as of this encounter (statuses as of 10/10/2022) [facility] of Past illness Narrative* Problem Noted Date Resolved Date Status post chest tube placement 09/20/2022 09/27/2022 Urinary retention 09/20/2022 09/27/2022 BPH associated with nocturia 08/08/202112/2022 Abnormal result of iron profile testing 07/15/19 18 01/11/2022 Overview: Dr.Vincent Suarez Occult GI bleeding 01/19/2017 07/31/2017 Bladder mass 02/24/2016 07/07/2016 Rash 01/14/2015 04/17/2019 Abnormal LFTs (liver function tests) 06/27/2013 01/06/2021 Overview: Dr. Kelby Suarez, GI/hepatology. 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 Elevated prostate specific antigen (PSA) 008 07/31/2017 documented as of this encounter (statuses as of 10/10/2022) [facility] Narrative* Problem Noted Date Resolved Date Status post chest tube placement 09/20/2022 09/27/2022 Urinary retention 09/20/2022 09/27/2022 BPH associated with nocturia 08/08/202112/2022 Abnormal result of iron profile testing 07/15/19 18 01/11/2022 Overview: Dr.Vincent Suarez Occult GI bleeding 01/19/2017 07/31/2017 Bladder mass 02/24/2016 07/07/2016 Rash 01/14/2015 04/17/2019 Abnormal LFTs (liver function tests) 06/27/2013 01/06/2021 Overview: Dr. Kelby Suarez, GI/hepatology. 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 Elevated prostate specific antigen (PSA) 008 07/31/2017 documented as of this encounter (statuses as of 10/12/2022) [facility] Narrative* Problem Noted Date Resolved Date Status post chest tube placement 09/20/2022 09/27/2022 Urinary retention 09/20/2022 09/27/2022 BPH associated with nocturia 08/08/202112/2022 Abnormal result of iron profile testing 07/15/19 18 01/11/2022 Overview: Dr.Vincent Suarez Occult GI bleeding 01/19/2017 07/31/2017 Bladder mass 02/24/2016 07/07/2016 Rash 01/14/2015 04/17/2019 Abnormal LFTs (liver function tests) 06/27/2013 01/06/2021 Overview: Dr. Kelby Suarez, GI/hepatology. 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 Elevated prostate specific antigen (PSA) 008 07/31/2017 documented as of this encounter (statuses as of 10/12/2022) [facility] Past illness Narrative* Problem Noted Date Resolved Date Status post chest tube placement 09/20/2022 09/27/2022 Urinary retention 09/20/2022 09/27/2022 BPH associated with nocturia 08/08/202112/2022 Abnormal result of iron profile testing 07/15/19 18 01/11/2022 Overview: Dr.Vincent Suarez Occult GI bleeding 01/19/2017 07/31/2017 Bladder mass 02/24/2016 07/07/2016 Rash 01/14/2015 04/17/2019 Abnormal LFTs (liver function tests) 06/27/2013 01/06/2021 Overview: Dr. Kelby Suarez, GI/hepatology. 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 Elevated prostate specific antigen (PSA) 008 07/31/2017 documented as of this encounter (statuses as of 10/13/2022) [facility]04-12-2023 History of Past illness Narrative* Problem Noted Date Resolved Date Status post chest tube placement 09/20/2022 09/27/2022 Urinary retention 09/20/2022 09/27/2022 BPH associated with nocturia 08/08/202112/2022 Abnormal result of iron profile testing 07/15/19 18 01/11/2022 Overview: Dr.Vincent Suarez Occult GI bleeding 01/19/2017 07/31/2017 Bladder mass 02/24/2016 07/07/2016 Rash 01/14/2015 04/17/2019 Abnormal LFTs (liver function tests) 06/27/2013 01/06/2021 Overview: Dr. Kelby Suarez, GI/hepatology. 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 Elevated prostate specific antigen (PSA) 008 07/31/2017 documented as of this encounter (statuses as of 10/16/2022) [facility]2023 History of Past illness Narrative* Problem Noted Date Resolved Date Status post chest tube placement 09/20/2022 09/27/2022 Urinary retention 09/20/2022 09/27/2022 BPH associated with nocturia 08/08/202112/2022 Abnormal result of iron profile testing 07/15/19 18 01/11/2022 Overview: Dr.Vincent Suarez Occult GI bleeding 01/19/2017 07/31/2017 Bladder mass 02/24/2016 07/07/2016 Rash 01/14/2015 04/17/2019 Abnormal LFTs (liver function tests) 06/27/2013 01/06/2021 Overview: Dr. Kelby Suarez, GI/hepatology. 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 Elevated prostate specific antigen (PSA) 008 07/31/2017 documented as of this encounter (statuses as of 10/18/2022) [facility] History of Past illness Narrative* Problem Noted Date Resolved Date Status post chest tube placement 09/20/2022 09/27/2022 Urinary retention 09/20/2022 09/27/2022 BPH associated with nocturia 08/08/202112/2022 Abnormal result of iron profile testing 07/15/1901/11/2022 Overview: Dr.Vincent Suarez Occult GI bleeding 01/19/2017 07/31/2017 Bladder mass 02/24/2016 07/07/2016 Rash 01/14/2015 04/17/2019 Abnormal LFTs (liver function tests) 06/27/2013 01/06/2021 Overview: Dr. Kelby Suarez, GI/hepatology. 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 Elevated prostate specific antigen (PSA) 008 07/31/2017 documented as of this encounter (statuses as of 10/18/2022) [facility] History of Past illness Narrative* Problem Noted Date Resolved Date Status post chest tube placement 09/20/2022 09/27/2022 Urinary retention 09/20/2022 09/27/2022 BPH associated with nocturia 08/08/202112/2022 Abnormal result of iron profile testing 07/15/19 18 01/11/2022 Overview: Dr.Vincent Suarez Occult GI bleeding 01/19/2017 07/31/2017 Bladder mass 02/24/2016 07/07/2016 Rash 01/14/2015 04/17/2019 Abnormal LFTs (liver function tests) 06/27/2013 01/06/2021 Overview: Dr. Kelby Suarez, GI/hepatology. 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 Elevated prostate specific antigen (PSA) 008 07/31/2017 documented as of this encounter (statuses as of 10/19/2022) [facility] History of Past illness Narrative* Problem Noted Date Resolved Date Status post chest tube placement 09/20/2022 09/27/2022 Urinary retention 09/20/2022 09/27/2022 BPH associated with nocturia 08/08/202112/2022 Abnormal result of iron profile testing 07/15/19 18 01/11/2022 Overview: Dr.Vincent Suarez Occult GI bleeding 01/19/2017 07/31/2017 Bladder mass 02/24/2016 07/07/2016 Rash 01/14/2015 04/17/2019 Abnormal LFTs (liver function tests) 06/27/2013 01/06/2021 Overview: Dr. Kelby Suarez, GI/hepatology. 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 Elevated prostate specific antigen (PSA) 008 07/31/2017 documented as of this encounter (statuses as of 10/19/2022) [facility] History of Past illness Narrative* Problem Noted Date Resolved Date Status post chest tube placement 09/20/2022 09/27/2022 Urinary retention 09/20/2022 09/27/2022 BPH associated with nocturia 08/08/202112/2022 Abnormal result of iron profile testing 07/15/19 18 01/11/2022 Overview: Dr.Vincent Suarez Occult GI bleeding 01/19/2017 07/31/2017 Bladder mass 02/24/2016 07/07/2016 Rash 01/14/2015 04/17/2019 Abnormal LFTs (liver function tests) 06/27/2013 01/06/2021 Overview: Dr. Kelby Suarez, GI/hepatology. 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 Elevated prostate specific antigen (PSA) 008 07/31/2017 documented as of this encounter (statuses as of 10/19/2022) [facility] History of Past illness Narrative* Problem Noted Date Resolved Date Status post chest tube placement 09/20/2022 09/27/2022 Urinary retention 09/20/2022 09/27/2022 BPH associated with nocturia 08/08/202112/2022 Abnormal result of iron profile testing 07/15/19 18 01/11/2022 Overview: Dr.Vincent Suarez Occult GI bleeding 01/19/2017 07/31/2017 Bladder mass 02/24/2016 07/07/2016 Rash 01/14/2015 04/17/2019 Abnormal LFTs (liver function tests) 06/27/2013 01/06/2021 Overview: Dr. Kelby Suarez, GI/hepatology. 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 Elevated prostate specific antigen (PSA) 008 07/31/2017 documented as of this encounter (statuses as of 10/20/2022) [facility] History of Past illness Narrative* Problem Noted Date Resolved Date Status post chest tube placement 09/20/2022 09/27/2022 Urinary retention 09/20/2022 09/27/2022 BPH associated with nocturia 08/08/202112/2022 Abnormal result of iron profile testing 07/15/19 18 01/11/2022 Overview: Dr.Vincent Suarez Occult GI bleeding 01/19/2017 07/31/2017 Bladder mass 02/24/2016 07/07/2016 Rash 01/14/2015 04/17/2019 Abnormal LFTs (liver function tests) 06/27/2013 01/06/2021 Overview: Dr. Kelby Suarez, GI/hepatology. 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 Elevated prostate specific antigen (PSA) 008 07/31/2017 documented as of this encounter (statuses as of 10/20/2022) [facility] History of Past illness Narrative* Problem Noted Date Resolved Date Status post chest tube placement 09/20/2022 09/27/2022 Urinary retention 09/20/2022 09/27/2022 BPH associated with nocturia 08/08/202112/2022 Abnormal result of iron profile testing 07/15/1901/11/2022 Overview: Dr.Vincent Suarez Occult GI bleeding 01/19/2017 07/31/2017 Bladder mass 02/24/2016 07/07/2016 Rash 01/14/2015 04/17/2019 Abnormal LFTs (liver function tests) 06/27/2013 01/06/2021 Overview: Dr. Kelby Suarez, GI/hepatology. 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 Elevated prostate specific antigen (PSA) 008 07/31/2017 documented as of this encounter (statuses as of 10/20/2022) [facility] History of Past illness Narrative* Problem Noted Date Resolved Date Status post chest tube placement 09/20/2022 09/27/2022 Urinary retention 09/20/2022 09/27/2022 BPH associated with nocturia 08/08/202112/2022 Abnormal result of iron profile testing 07/15/1901/11/2022 Overview: Dr.Vincent Suarez Occult GI bleeding 01/19/2017 07/31/2017 Bladder mass 02/24/2016 07/07/2016 Rash 01/14/2015 04/17/2019 Abnormal LFTs (liver function tests) 06/27/2013 01/06/2021 Overview: Dr. Kelby Suarez, GI/hepatology. 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 Elevated prostate specific antigen (PSA) 008 07/31/2017 documented as of this encounter (statuses as of 10/20/2022) [facility] History of Past illness Narrative* Problem Noted Date Resolved Date Status post chest tube placement 09/20/2022 09/27/2022 Urinary retention 09/20/2022 09/27/2022 BPH associated with nocturia 08/08/202112/2022 Abnormal result of iron profile testing 07/15/1901/11/2022 Overview: Dr.Vincent Suarez Occult GI bleeding 01/19/2017 07/31/2017 Bladder mass 02/24/2016 07/07/2016 Rash 01/14/2015 04/17/2019 Abnormal LFTs (liver function tests) 06/27/2013 01/06/2021 Overview: Dr. Kelby Suarez, GI/hepatology. 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 Elevated prostate specific antigen (PSA) 008 07/31/2017 documented as of this encounter (statuses as of 10/21/2022) [facility] History of Past illness Narrative* Problem Noted Date Resolved Date Status post chest tube placement 09/20/2022 09/27/2022 Urinary retention 09/20/2022 09/27/2022 BPH associated with nocturia 08/08/202112/2022 Abnormal result of iron profile testing 07/15/19 18 01/11/2022 Overview: Dr.Vincent Suarez Occult GI bleeding 01/19/2017 07/31/2017 Bladder mass 02/24/2016 07/07/2016 Rash 01/14/2015 04/17/2019 Abnormal LFTs (liver function tests) 06/27/2013 01/06/2021 Overview: Dr. Kelby Suarez, GI/hepatology. 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 Elevated prostate specific antigen (PSA) 008 07/31/2017 documented as of this encounter (statuses as of 10/23/2022) [facility] History of Past illness Narrative* Problem Noted Date Resolved Date Status post chest tube placement 09/20/2022 09/27/2022 Urinary retention 09/20/2022 09/27/2022 BPH associated with nocturia 08/08/202112/2022 Abnormal result of iron profile testing 07/15/19 18 01/11/2022 Overview: Dr.Vincent Suarez Occult GI bleeding 01/19/2017 07/31/2017 Bladder mass 02/24/2016 07/07/2016 Rash 01/14/2015 04/17/2019 Abnormal LFTs (liver function tests) 06/27/2013 01/06/2021 Overview: Dr. Kelby Suarez, GI/hepatology. 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 Elevated prostate specific antigen (PSA) 008 07/31/2017 documented as of this encounter (statuses as of 10/24/2022) [facility] History of Past illness Narrative* Problem Noted Date Resolved Date Status post chest tube placement 09/20/2022 09/27/2022 Urinary retention 09/20/2022 09/27/2022 BPH associated with nocturia 08/08/202112/2022 Abnormal result of iron profile testing 07/15/19 18 01/11/2022 Overview: Dr.Vincent Suarez Occult GI bleeding 01/19/2017 07/31/2017 Bladder mass 02/24/2016 07/07/2016 Rash 01/14/2015 04/17/2019 Abnormal LFTs (liver function tests) 06/27/2013 01/06/2021 Overview: Dr. Kelby Suarez, GI/hepatology. 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 Elevated prostate specific antigen (PSA) 008 07/31/2017 documented as of this encounter (statuses as of 11/01/2022) [facility] History of Past illness Narrative* Problem Noted Date Resolved Date Status post chest tube placement 09/20/2022 09/27/2022 Urinary retention 09/20/2022 09/27/2022 BPH associated with nocturia 08/08/202112/2022 Abnormal result of iron profile testing 07/15/19 18 01/11/2022 Overview: Dr.Vincent Suarez Occult GI bleeding 01/19/2017 07/31/2017 Bladder mass 02/24/2016 07/07/2016 Rash 01/14/2015 04/17/2019 Abnormal LFTs (liver function tests) 06/27/2013 01/06/2021 Overview: Dr. Kelby Suarez, GI/hepatology. 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 Elevated prostate specific antigen (PSA) 008 07/31/2017 documented as of this encounter (statuses as of 11/10/2022) [facility] History of Past illness Narrative* Problem Noted Date Resolved Date Status post chest tube placement 09/20/2022 09/27/2022 Urinary retention 09/20/2022 09/27/2022 BPH associated with nocturia 08/08/202112/2022 Abnormal result of iron profile testing 07/15/19 18 01/11/2022 Overview: Dr.Vincent Suarez Occult GI bleeding 01/19/2017 07/31/2017 Bladder mass 02/24/2016 07/07/2016 Rash 01/14/2015 04/17/2019 Abnormal LFTs (liver function tests) 06/27/2013 01/06/2021 Overview: Dr. Kelby Suarez, GI/hepatology. 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 Elevated prostate specific antigen (PSA) 008 07/31/2017 documented as of this encounter (statuses as of 11/11/2022) [facility] History of Past illness Narrative* Problem Noted Date Resolved Date Status post chest tube placement 09/20/2022 09/27/2022 Urinary retention 09/20/2022 09/27/2022 BPH associated with nocturia 08/08/202112/2022 Abnormal result of iron profile testing 07/15/19 18 01/11/2022 Overview: Dr.Vincent Suarez Occult GI bleeding 01/19/2017 07/31/2017 Bladder mass 02/24/2016 07/07/2016 Rash 01/14/2015 04/17/2019 Abnormal LFTs (liver function tests) 06/27/2013 01/06/2021 Overview: Dr. Kelby Suarez, GI/hepatology. 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 Elevated prostate specific antigen (PSA) 008 07/31/2017 documented as of this encounter (statuses as of 11/14/2022) [facility] History of Past illness Narrative* Problem Noted Date Resolved Date Status post chest tube placement 09/20/2022 09/27/2022 Urinary retention 09/20/2022 09/27/2022 BPH associated with nocturia 08/08/202112/2022 Abnormal result of iron profile testing 07/15/19 18 01/11/2022 Overview: Dr.Vincent Suarez Occult GI bleeding 01/19/2017 07/31/2017 Bladder mass 02/24/2016 07/07/2016 Rash 01/14/2015 04/17/2019 Abnormal LFTs (liver function tests) 06/27/2013 01/06/2021 Overview: Dr. Kelby Suarez, GI/hepatology. 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 Elevated prostate specific antigen (PSA) 008 07/31/2017 documented as of this encounter (statuses as of 11/24/2022) [facility] History of Past illness Narrative* Problem Noted Date Resolved Date Status post chest tube placement 09/20/2022 09/27/2022 Urinary retention 09/20/2022 09/27/2022 BPH associated with nocturia 08/08/202112/2022 Abnormal result of iron profile testing 07/15/1901/11/2022 Overview: Dr.Vincent Suarez Occult GI bleeding 01/19/2017 07/31/2017 Bladder mass 02/24/2016 07/07/2016 Rash 01/14/2015 04/17/2019 Abnormal LFTs (liver function tests) 06/27/2013 01/06/2021 Overview: Dr. Kelby Suarez, GI/hepatology. 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 Elevated prostate specific antigen (PSA) 008 07/31/2017 documented as of this encounter (statuses as of 12/01/2022) [facility] History of Past illness Narrative* Problem Noted Date Resolved Date Status post chest tube placement 09/20/2022 09/27/2022 Urinary retention 09/20/2022 09/27/2022 BPH associated with nocturia 08/08/202112/2022 Abnormal result of iron profile testing 07/15/1901/11/2022 Overview: Dr.Vincent Suarez Occult GI bleeding 01/19/2017 07/31/2017 Bladder mass 02/24/2016 07/07/2016 Rash 01/14/2015 04/17/2019 Abnormal LFTs (liver function tests) 06/27/2013 01/06/2021 Overview: Dr. Kelby Suarez, GI/hepatology. 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 Elevated prostate specific antigen (PSA) 008 07/31/2017 documented as of this encounter (statuses as of 12/04/2022) [facility] History of Past illness Narrative* Problem Noted Date Resolved Date Status post chest tube placement 09/20/2022 09/27/2022 Urinary retention 09/20/2022 09/27/2022 BPH associated with nocturia 08/08/202112/2022 Abnormal result of iron profile testing 07/15/19 18 01/11/2022 Overview: Dr.Vincent Suarez Occult GI bleeding 01/19/2017 07/31/2017 Bladder mass 02/24/2016 07/07/2016 Rash 01/14/2015 04/17/2019 Abnormal LFTs (liver function tests) 06/27/2013 01/06/2021 Overview: Dr. Kelby Suarez, GI/hepatology. 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 Elevated prostate specific antigen (PSA) 008 07/31/2017 documented as of this encounter (statuses as of 12/12/2022) [facility] History of Past illness Narrative* Problem Noted Date Resolved Date Status post chest tube placement 09/20/2022 09/27/2022 Urinary retention 09/20/2022 09/27/2022 BPH associated with nocturia 08/08/202112/2022 Abnormal result of iron profile testing 07/15/19 18 01/11/2022 Overview: Dr.Vincent Suarez Occult GI bleeding 01/19/2017 07/31/2017 Bladder mass 02/24/2016 07/07/2016 Rash 01/14/2015 04/17/2019 Abnormal LFTs (liver function tests) 06/27/2013 01/06/2021 Overview: Dr. Kelby Suarez, GI/hepatology. 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 Elevated prostate specific antigen (PSA) 008 07/31/2017 documented as of this encounter (statuses as of 12/15/2022) [facility] History of Past illness Narrative* Problem Noted Date Diagnosed Date Resolved Date Status post chest tube placement 09/20/2022 09/27/2022 Urinary retention 09/20/2022 09/27/2022 BPH associated with nocturia 08/08/2021 09/15/2022 Abnormal result of iron profile testing 07/15/2017 01/11/2022 Overview: Dr.Vincent Suarez Occult GI bleeding 01/19/2017 8 Bladder mass 02/24/2016 07/07/2016 Rash 01/14/2015 04/17/2019 Abnormal LFTs (liver function tests) 06/27/2013 01/06/2021 Overview: Dr. Kelby Suarez, GI/hepatology. 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 Elevated prostate specific antigen (PSA) 07/19/2007 07/31/2017 documented as of this encounter (statuses as of 12/18/2022) [facility]04-12-2023 History of Past illness Narrative* Problem Noted Date Diagnosed Date Resolved Date Status post chest tube placement 09/20/2022 09/27/2022 Urinary retention 09/20/2022 09/27/2022 BPH associated with nocturia 08/08/2021 09/15/2022 Abnormal result of iron profile testing 07/15/2017 01/11/2022 Overview: Dr.Vincent Suarez Occult GI bleeding 01/19/2017 8 Bladder mass 02/24/2016 07/07/2016 Rash 01/14/2015 04/17/2019 Abnormal LFTs (liver function tests) 06/27/2013 01/06/2021 Overview: Dr. Kelby Suarez, GI/hepatology. 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 Elevated prostate specific antigen (PSA) 07/19/2007 07/31/2017 documented as of this encounter (statuses as of 12/20/2022) [facility]04-[facility]2023 History of Past illness Narrative* Problem Noted Date Diagnosed Date Resolved Date Status post chest tube placement 09/20/2022 09/27/2022 Urinary retention 09/20/2022 09/27/2022 BPH associated with nocturia 08/08/2021 09/15/2022 Abnormal result of iron profile testing 07/15/2017 01/11/2022 Overview: Dr.Vincent Suarez Occult GI bleeding 01/19/2017 8 Bladder mass 02/24/2016 07/07/2016 Rash 01/14/2015 04/17/2019 Abnormal LFTs (liver function tests) 06/27/2013 01/06/2021 Overview: Dr. Kelby Suarez, GI/hepatology. 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 Elevated prostate specific antigen (PSA) 07/19/2007 07/31/2017 documented as of this encounter (statuses as of 12/21/2022) [facility] History of Past illness Narrative* Problem Noted Date Diagnosed Date Resolved Date Status post chest tube placement 09/20/2022 09/27/2022 Urinary retention 09/20/2022 09/27/2022 BPH associated with nocturia 08/08/2021 09/15/2022 Abnormal result of iron profile testing 07/15/2017 01/11/2022 Overview: Dr.Vincent Suarez Occult GI bleeding 01/19/2017 8 Bladder mass 02/24/2016 07/07/2016 Rash 01/14/2015 04/17/2019 Abnormal LFTs (liver function tests) 06/27/2013 01/06/2021 Overview: Dr. Kelby Suarez, GI/hepatology. 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 Elevated prostate specific antigen (PSA) 07/19/2007 07/31/2017 documented as of this encounter (statuses as of 12/21/2022) [facility] History of Past illness Narrative* Problem Noted Date Diagnosed Date Resolved Date Status post chest tube placement 09/20/2022 09/27/2022 Urinary retention 09/20/2022 09/27/2022 BPH associated with nocturia 08/08/2021 09/15/2022 Abnormal result of iron profile testing 07/15/2017 01/11/2022 Overview: Dr.Vincent Suarez Occult GI bleeding 01/19/2017 8 Bladder mass 02/24/2016 07/07/2016 Rash 01/14/2015 04/17/2019 Abnormal LFTs (liver function tests) 06/27/2013 01/06/2021 Overview: Dr. Kelby Suarez, GI/hepatology. 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 Elevated prostate specific antigen (PSA) 07/19/2007 07/31/2017 documented as of this encounter (statuses as of 12/22/2022) [facility]2023 History of Past illness Narrative* Problem Noted Date Diagnosed Date Resolved Date Status post chest tube placement 09/20/2022 09/27/2022 Urinary retention 09/20/2022 09/27/2022 BPH associated with nocturia 08/08/2021 09/15/2022 Abnormal result of iron profile testing 07/15/2017 01/11/2022 Overview: Dr.Vincent Suarez Occult GI bleeding 01/19/2017 8 Bladder mass 02/24/2016 07/07/2016 Rash 01/14/2015 04/17/2019 Abnormal LFTs (liver function tests) 06/27/2013 01/06/2021 Overview: Dr. Kelby Suarez, GI/hepatology. 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 Elevated prostate specific antigen (PSA) 07/19/2007 07/31/2017 documented as of this encounter (statuses as of 12/23/2022) [facility]20[facility] History of Past illness Narrative* Problem Noted Date Diagnosed Date Resolved Date Status post chest tube placement 09/20/2022 09/27/2022 Urinary retention 09/20/2022 09/27/2022 BPH associated with nocturia 08/08/2021 09/15/2022 Abnormal result of iron profile testing 07/15/2017 01/11/2022 Overview: Dr.Vincent Suarez Occult GI bleeding 01/19/2017 8 Bladder mass 02/24/2016 07/07/2016 Rash 01/14/2015 04/17/2019 Abnormal LFTs (liver function tests) 06/27/2013 01/06/2021 Overview: Dr. Kelby Suarez, GI/hepatology. 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 Elevated prostate specific antigen (PSA) 07/19/2007 07/31/2017 documented as of this encounter (statuses as of 12/23/2022) [facility]04-12[facility]2023 History of Past illness Narrative* Problem Noted Date Diagnosed Date Resolved Date Status post chest tube placement 09/20/2022 09/27/2022 Urinary retention 09/20/2022 09/27/2022 BPH associated with nocturia 08/08/2021 09/15/2022 Abnormal result of iron profile testing 07/15/2017 01/11/2022 Overview: Dr.Vincent Suarez Occult GI bleeding 01/19/2017 8 Bladder mass 02/24/2016 07/07/2016 Rash 01/14/2015 04/17/2019 Abnormal LFTs (liver function tests) 06/27/2013 01/06/2021 Overview: Dr. Kelby Suarez, GI/hepatology. 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 Elevated prostate specific antigen (PSA) 07/19/2007 07/31/2017 documented as of this encounter (statuses as of 01/07/2023) [facility]2023 History of Past illness Narrative* Problem Noted Date Diagnosed Date Resolved Date Status post chest tube placement 09/20/2022 09/27/2022 Urinary retention 09/20/2022 09/27/2022 BPH associated with nocturia 08/08/2021 09/15/2022 Abnormal result of iron profile testing 07/15/2017 01/11/2022 Overview: Dr.Vincent Suarez Occult GI bleeding 01/19/2017 8 Bladder mass 02/24/2016 07/07/2016 Rash 01/14/2015 04/17/2019 Abnormal LFTs (liver function tests) 06/27/2013 01/06/2021 Overview: Dr. Kelby Suarez, GI/hepatology. 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 Elevated prostate specific antigen (PSA) 07/19/2007 07/31/2017 documented as of this encounter (statuses as of 01/10/2023) [facility]2023 History of Past illness Narrative* Problem Noted Date Diagnosed Date Resolved Date Status post chest tube placement 09/20/2022 09/27/2022 Urinary retention 09/20/2022 09/27/2022 BPH associated with nocturia 08/08/2021 09/15/2022 Abnormal result of iron profile testing 07/15/2017 01/11/2022 Overview: Dr.Vincent Suarez Occult GI bleeding 01/19/2017 8 Bladder mass 02/24/2016 07/07/2016 Rash 01/14/2015 04/17/2019 Abnormal LFTs (liver function tests) 06/27/2013 01/06/2021 Overview: Dr. Kelby Suarez, GI/hepatology. 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 Elevated prostate specific antigen (PSA) 07/19/2007 07/31/2017 documented as of this encounter (statuses as of 01/10/2023) [facility] History of Past illness Narrative* Problem Noted Date Diagnosed Date Resolved Date Status post chest tube placement 09/20/2022 09/27/2022 Urinary retention 09/20/2022 09/27/2022 BPH associated with nocturia 08/08/2021 09/15/2022 Abnormal result of iron profile testing 07/15/2017 01/11/2022 Overview: Dr.Vincent Suarez Occult GI bleeding 01/19/2017 8 Bladder mass 02/24/2016 07/07/2016 Rash 01/14/2015 04/17/2019 Abnormal LFTs (liver function tests) 06/27/2013 01/06/2021 Overview: Dr. Kelby Suarez, GI/hepatology. 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 Elevated prostate specific antigen (PSA) 07/19/2007 07/31/2017 documented as of this encounter (statuses as of 01/11/2023) [facility]2023 History of Past illness Narrative* Problem Noted Date Diagnosed Date Resolved Date Status post chest tube placement 09/20/2022 09/27/2022 Urinary retention 09/20/2022 09/27/2022 BPH associated with nocturia 08/08/2021 09/15/2022 Abnormal result of iron profile testing 07/15/2017 01/11/2022 Overview: Dr.Vincent Suarez Occult GI bleeding 01/19/2017 8 Bladder mass 02/24/2016 07/07/2016 Rash 01/14/2015 04/17/2019 Abnormal LFTs (liver function tests) 06/27/2013 01/06/2021 Overview: Dr. Kelby Suarez, GI/hepatology. 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 Elevated prostate specific antigen (PSA) 07/19/2007 07/31/2017 documented as of this encounter (statuses as of 01/12/2023) [facility] History of Past illness Narrative* Problem Noted Date Diagnosed Date Resolved Date Status post chest tube placement 09/20/2022 09/27/2022 Urinary retention 09/20/2022 09/27/2022 BPH associated with nocturia 08/08/2021 09/15/2022 Abnormal result of iron profile testing 07/15/2017 01/11/2022 Overview: Dr.Vincent Suarez Occult GI bleeding 01/19/2017 8 Bladder mass 02/24/2016 07/07/2016 Rash 01/14/2015 04/17/2019 Abnormal LFTs (liver function tests) 06/27/2013 01/06/2021 Overview: Dr. Kelby Suarez, GI/hepatology. 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 Elevated prostate specific antigen (PSA) 07/19/2007 07/31/2017 documented as of this encounter (statuses as of 01/16/2023) [facility] History of Past illness Narrative* Problem Noted Date Diagnosed Date Resolved Date Status post chest tube placement 09/20/2022 09/27/2022 Urinary retention 09/20/2022 09/27/2022 BPH associated with nocturia 08/08/2021 09/15/2022 Abnormal result of iron profile testing 07/15/2017 01/11/2022 Overview: Dr.Vincent Suarez Occult GI bleeding 01/19/2017 8 Bladder mass 02/24/2016 07/07/2016 Rash 01/14/2015 04/17/2019 Abnormal LFTs (liver function tests) 06/27/2013 01/06/2021 Overview: Dr. Kelby Suarez, GI/hepatology. 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 Elevated prostate specific antigen (PSA) 07/19/2007 07/31/2017 documented as of this encounter (statuses as of 01/18/2023) [facility] History of Past illness Narrative* Problem Noted Date Diagnosed Date Resolved Date Status post chest tube placement 09/20/2022 09/27/2022 Urinary retention 09/20/2022 09/27/2022 BPH associated with nocturia 08/08/2021 09/15/2022 Abnormal result of iron profile testing 07/15/2017 01/11/2022 Overview: Dr.Vincent Suarez Occult GI bleeding 01/19/2017 8 Bladder mass 02/24/2016 07/07/2016 Rash 01/14/2015 04/17/2019 Abnormal LFTs (liver function tests) 06/27/2013 01/06/2021 Overview: Dr. Kelby Suarez, GI/hepatology. 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 Elevated prostate specific antigen (PSA) 07/19/2007 07/31/2017 documented as of this encounter (statuses as of 01/18/2023) [facility] History of Past illness Narrative* Problem Noted Date Diagnosed Date Resolved Date Status post chest tube placement 09/20/2022 09/27/2022 Urinary retention 09/20/2022 09/27/2022 BPH associated with nocturia 08/08/2021 09/15/2022 Abnormal result of iron profile testing 07/15/2017 01/11/2022 Overview: Dr.Vincent Suarez Occult GI bleeding 01/19/2017 8 Bladder mass 02/24/2016 07/07/2016 Rash 01/14/2015 04/17/2019 Abnormal LFTs (liver function tests) 06/27/2013 01/06/2021 Overview: Dr. Kelby Suarez, GI/hepatology. 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 Elevated prostate specific antigen (PSA) 07/19/2007 07/31/2017 documented as of this encounter (statuses as of 01/20/2023) [facility] History of Past illness Narrative* Problem Noted Date Diagnosed Date Resolved Date Status post chest tube placement 09/20/2022 09/27/2022 Urinary retention 09/20/2022 09/27/2022 BPH associated with nocturia 08/08/2021 09/15/2022 Abnormal result of iron profile testing 07/15/2017 01/11/2022 Overview: Dr.Vincent Suarez Occult GI bleeding 01/19/2017 8 Bladder mass 02/24/2016 07/07/2016 Rash 01/14/2015 04/17/2019 Abnormal LFTs (liver function tests) 06/27/2013 01/06/2021 Overview: Dr. Kelby Suarez, GI/hepatology. 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 Elevated prostate specific antigen (PSA) 07/19/2007 07/31/2017 documented as of this encounter (statuses as of 01/23/2023) [facility] History of Past illness Narrative* Problem Noted Date Diagnosed Date Resolved Date Status post chest tube placement 09/20/2022 09/27/2022 Urinary retention 09/20/2022 09/27/2022 BPH associated with nocturia 08/08/2021 09/15/2022 Abnormal result of iron profile testing 07/15/2017 01/11/2022 Overview: Dr.Vincent Suarez Occult GI bleeding 01/19/2017 8 Bladder mass 02/24/2016 07/07/2016 Rash 01/14/2015 04/17/2019 Abnormal LFTs (liver function tests) 06/27/2013 01/06/2021 Overview: Dr. Kelby Suarez, GI/hepatology. 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 Elevated prostate specific antigen (PSA) 07/19/2007 07/31/2017 documented as of this encounter (statuses as of 01/24/2023) [facility] History of Past illness Narrative* Problem Noted Date Diagnosed Date Resolved Date Status post chest tube placement 09/20/2022 09/27/2022 Urinary retention 09/20/2022 09/27/2022 BPH associated with nocturia 08/08/2021 09/15/2022 Abnormal result of iron profile testing 07/15/2017 01/11/2022 Overview: Dr.Vincent Suarez Occult GI bleeding 01/19/2017 8 Bladder mass 02/24/2016 07/07/2016 Rash 01/14/2015 04/17/2019 Abnormal LFTs (liver function tests) 06/27/2013 01/06/2021 Overview: Dr. Kelby Suarez, GI/hepatology. 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 Elevated prostate specific antigen (PSA) 07/19/2007 07/31/2017 documented as of this encounter (statuses as of 01/24/2023) [facility] History of Past illness Narrative* Problem Noted Date Diagnosed Date Resolved Date Status post chest tube placement 09/20/2022 09/27/2022 Urinary retention 09/20/2022 09/27/2022 BPH associated with nocturia 08/08/2021 09/15/2022 Abnormal result of iron profile testing 07/15/2017 01/11/2022 Overview: Dr.Vincent Suarez Occult GI bleeding 01/19/2017 8 Bladder mass 02/24/2016 07/07/2016 Rash 01/14/2015 04/17/2019 Abnormal LFTs (liver function tests) 06/27/2013 01/06/2021 Overview: Dr. Kelby Suarez, GI/hepatology. 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 Elevated prostate specific antigen (PSA) 07/19/2007 07/31/2017 documented as of this encounter (statuses as of 01/24/2023) [facility] History of Past illness Narrative* Problem Noted Date Diagnosed Date Resolved Date Status post chest tube placement 09/20/2022 09/27/2022 Urinary retention 09/20/2022 09/27/2022 BPH associated with nocturia 08/08/2021 09/15/2022 Abnormal result of iron profile testing 07/15/2017 01/11/2022 Overview: Dr.Vincent Suarez Occult GI bleeding 01/19/2017 8 Bladder mass 02/24/2016 07/07/2016 Rash 01/14/2015 04/17/2019 Abnormal LFTs (liver function tests) 06/27/2013 01/06/2021 Overview: Dr. Kelby Suarez, GI/hepatology. 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 Elevated prostate specific antigen (PSA) 07/19/2007 07/31/2017 documented as of this encounter (statuses as of 01/29/2023) [facility] History of Past illness Narrative* Problem Noted Date Diagnosed Date Resolved Date Status post chest tube placement 09/20/2022 09/27/2022 Urinary retention 09/20/2022 09/27/2022 BPH associated with nocturia 08/08/2021 09/15/2022 Abnormal result of iron profile testing 07/15/2017 01/11/2022 Overview: Dr.Vincent Suarez Occult GI bleeding 01/19/2017 8 Bladder mass 02/24/2016 07/07/2016 Rash 01/14/2015 04/17/2019 Abnormal LFTs (liver function tests) 06/27/2013 01/06/2021 Overview: Dr. Kelby Suarez, GI/hepatology. 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 Elevated prostate specific antigen (PSA) 07/19/2007 07/31/2017 documented as of this encounter (statuses as of 01/30/2023) [facility] History of Past illness Narrative* Problem Noted Date Diagnosed Date Resolved Date Status post chest tube placement 09/20/2022 09/27/2022 Urinary retention 09/20/2022 09/27/2022 BPH associated with nocturia 08/08/2021 09/15/2022 Abnormal result of iron profile testing 07/15/2017 01/11/2022 Overview: Dr.Vincent Suarez Occult GI bleeding 01/19/2017 8 Bladder mass 02/24/2016 07/07/2016 Rash 01/14/2015 04/17/2019 Abnormal LFTs (liver function tests) 06/27/2013 01/06/2021 Overview: Dr. Kelby Suarez, GI/hepatology. 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 Elevated prostate specific antigen (PSA) 07/19/2007 07/31/2017 documented as of this encounter (statuses as of 02/01/2023) [facility]04-12-2023 History of Past illness Narrative* Problem Noted Date Diagnosed Date Resolved Date Status post chest tube placement 09/20/2022 09/27/2022 Urinary retention 09/20/2022 09/27/2022 BPH associated with nocturia 08/08/2021 09/15/2022 Abnormal result of iron profile testing 07/15/2017 01/11/2022 Overview: Dr.Vincent Suarez Occult GI bleeding 01/19/2017 8 Bladder mass 02/24/2016 07/07/2016 Rash 01/14/2015 04/17/2019 Abnormal LFTs (liver function tests) 06/27/2013 01/06/2021 Overview: Dr. Kelby Suarez, GI/hepatology. 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 Elevated prostate specific antigen (PSA) 07/19/2007 07/31/2017 documented as of this encounter (statuses as of 02/03/2023) [facility]04-[facility]2023 History of Past illness Narrative* Problem Noted Date Diagnosed Date Resolved Date Status post chest tube placement 09/20/2022 09/27/2022 Urinary retention 09/20/2022 09/27/2022 BPH associated with nocturia 08/08/2021 09/15/2022 Abnormal result of iron profile testing 07/15/2017 01/11/2022 Overview: Dr.Vincent Suarez Occult GI bleeding 01/19/2017 8 Bladder mass 02/24/2016 07/07/2016 Rash 01/14/2015 04/17/2019 Abnormal LFTs (liver function tests) 06/27/2013 01/06/2021 Overview: Dr. Kelby Suarez, GI/hepatology. 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 Elevated prostate specific antigen (PSA) 07/19/2007 07/31/2017 documented as of this encounter (statuses as of 02/05/2023) [facility]04-12[facility]2023 History of Past illness Narrative* Problem Noted Date Diagnosed Date Resolved Date Status post chest tube placement 09/20/2022 09/27/2022 Urinary retention 09/20/2022 09/27/2022 Diarrhea 03/29/2022 02/07/2023 BPH associated with nocturia 08/08/2021 09/15/2022 Elevated LFTs 02/10/2020 02/07/2023 Hepatic fibrosis (HCC) on elastography 02/09/2018 02/07/2023 Overview: Dr. Kelby Suarez. GI Abnormal result of iron profile testing 07/15/2017 01/11/2022 Overview: Dr.Vincent Suarez Occult GI bleeding 01/19/2017 8 Bladder mass 02/24/2016 07/07/2016 Rash 01/14/2015 04/17/2019 Abnormal LFTs (liver function tests) 06/27/2013 01/06/2021 Overview: Dr. Kelby Suarez, GI/hepatology. 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 Elevated prostate specific antigen (PSA) 07/19/2007 07/31/2017 documented as of this encounter (statuses as of 02/07/2023) [facility]04-[facility]2023 History of Past illness Narrative* Problem Noted Date Diagnosed Date Resolved Date Status post chest tube placement 09/20/2022 09/27/2022 Urinary retention 09/20/2022 09/27/2022 Diarrhea 03/29/2022 02/07/2023 BPH associated with nocturia 08/08/2021 09/15/2022 Elevated LFTs 02/10/2020 02/07/2023 Hepatic fibrosis (HCC) on elastography 02/09/2018 02/07/2023 Overview: Dr. Kelby Suarez. GI Abnormal result of iron profile testing 07/15/2017 01/11/2022 Overview: Dr.Vincent Suarez Occult GI bleeding 01/19/2017 8 Bladder mass 02/24/2016 07/07/2016 Rash 01/14/2015 04/17/2019 Abnormal LFTs (liver function tests) 06/27/2013 01/06/2021 Overview: Dr. Kelby Suarez, GI/hepatology. 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 Elevated prostate specific antigen (PSA) 07/19/2007 07/31/2017 documented as of this encounter (statuses as of 02/07/2023) [facility]04-12[facility]2023 History of Past illness Narrative* Problem Noted Date Diagnosed Date Resolved Date Status post chest tube placement 09/20/2022 09/27/2022 Urinary retention 09/20/2022 09/27/2022 Diarrhea 03/29/2022 02/07/2023 BPH associated with nocturia 08/08/2021 09/15/2022 Elevated LFTs 02/10/2020 02/07/2023 Hepatic fibrosis (HCC) on elastography 02/09/2018 02/07/2023 Overview: Dr. Kelby Suarez. GI Abnormal result of iron profile testing 07/15/2017 01/11/2022 Overview: Dr.Vincent Suarez Occult GI bleeding 01/19/2017 8 Bladder mass 02/24/2016 07/07/2016 Rash 01/14/2015 04/17/2019 Abnormal LFTs (liver function tests) 06/27/2013 01/06/2021 Overview: Dr. Kelby Suarez, GI/hepatology. 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 Elevated prostate specific antigen (PSA) 07/19/2007 07/31/2017 documented as of this encounter (statuses as of 02/09/2023) [facility]04-12[facility]2023 History of Past illness Narrative* Problem Noted Date Diagnosed Date Resolved Date Status post chest tube placement 09/20/2022 09/27/2022 Urinary retention 09/20/2022 09/27/2022 Diarrhea 03/29/2022 02/07/2023 BPH associated with nocturia 08/08/2021 09/15/2022 Elevated LFTs 02/10/2020 02/07/2023 Hepatic fibrosis (HCC) on elastography 02/09/2018 02/07/2023 Overview: Dr. Kelby Suarez. GI Abnormal result of iron profile testing 07/15/2017 01/11/2022 Overview: Dr.Vincent Suarez Occult GI bleeding 01/19/2017 8 Bladder mass 02/24/2016 07/07/2016 Rash 01/14/2015 04/17/2019 Abnormal LFTs (liver function tests) 06/27/2013 01/06/2021 Overview: Dr. Kelby Suarez, GI/hepatology. 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 Elevated prostate specific antigen (PSA) 07/19/2007 07/31/2017 documented as of this encounter (statuses as of 02/17/2023) [facility]04-12[facility]2023 History of Past illness Narrative* Problem Noted Date Diagnosed Date Resolved Date Status post chest tube placement 09/20/2022 09/27/2022 Urinary retention 09/20/2022 09/27/2022 Diarrhea 03/29/2022 02/07/2023 BPH associated with nocturia 08/08/2021 09/15/2022 Elevated LFTs 02/10/2020 02/07/2023 Hepatic fibrosis (HCC) on elastography 02/09/2018 02/07/2023 Overview: Dr. Kelby Suarez. GI Abnormal result of iron profile testing 07/15/2017 01/11/2022 Overview: Dr.Vincent Suarez Occult GI bleeding 01/19/2017 8 Bladder mass 02/24/2016 07/07/2016 Rash 01/14/2015 04/17/2019 Abnormal LFTs (liver function tests) 06/27/2013 01/06/2021 Overview: Dr. Kelby Suarez, GI/hepatology. 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 Elevated prostate specific antigen (PSA) 07/19/2007 07/31/2017 documented as of this encounter (statuses as of 02/23/2023) [facility]04-[facility]2023 History of Past illness Narrative* Problem Noted Date Diagnosed Date Resolved Date Status post chest tube placement 09/20/2022 09/27/2022 Urinary retention 09/20/2022 09/27/2022 Diarrhea 03/29/2022 02/07/2023 BPH associated with nocturia 08/08/2021 09/15/2022 Elevated LFTs 02/10/2020 02/07/2023 Hepatic fibrosis (HCC) on elastography 02/09/2018 02/07/2023 Overview: Dr. Kelby Suarez. GI Abnormal result of iron profile testing 07/15/2017 01/11/2022 Overview: Dr.Vincent Suarez Occult GI bleeding 01/19/2017 8 Bladder mass 02/24/2016 07/07/2016 Rash 01/14/2015 04/17/2019 Abnormal LFTs (liver function tests) 06/27/2013 01/06/2021 Overview: Dr. Kelby Suarez, GI/hepatology. 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 Elevated prostate specific antigen (PSA) 07/19/2007 07/31/2017 documented as of this encounter (statuses as of 02/28/2023) [facility]04-[facility]2023 History of Past illness Narrative* Problem Noted Date Diagnosed Date Resolved Date Status post chest tube placement 09/20/2022 09/27/2022 Urinary retention 09/20/2022 09/27/2022 Diarrhea 03/29/2022 02/07/2023 BPH associated with nocturia 08/08/2021 09/15/2022 Elevated LFTs 02/10/2020 02/07/2023 Hepatic fibrosis (HCC) on elastography 02/09/2018 02/07/2023 Overview: Dr. Kelby Suarez. GI Abnormal result of iron profile testing 07/15/2017 01/11/2022 Overview: Dr.Vincent Suarez Occult GI bleeding 01/19/2017 8 Bladder mass 02/24/2016 07/07/2016 Rash 01/14/2015 04/17/2019 Abnormal LFTs (liver function tests) 06/27/2013 01/06/2021 Overview: Dr. Kelby Suarez, GI/hepatology. 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 Elevated prostate specific antigen (PSA) 07/19/2007 07/31/2017 documented as of this encounter (statuses as of 03/10/2023) [facility]04-[facility]2023 History of Past illness Narrative* Problem Noted Date Diagnosed Date Resolved Date Status post chest tube placement 09/20/2022 09/27/2022 Urinary retention 09/20/2022 09/27/2022 Diarrhea 03/29/2022 02/07/2023 BPH associated with nocturia 08/08/2021 09/15/2022 Elevated LFTs 02/10/2020 02/07/2023 Hepatic fibrosis (HCC) on elastography 02/09/2018 02/07/2023 Overview: Dr. Kelby Suarez. GI Abnormal result of iron profile testing 07/15/2017 01/11/2022 Overview: Dr.Vincent Suarez Occult GI bleeding 01/19/2017 8 Bladder mass 02/24/2016 07/07/2016 Rash 01/14/2015 04/17/2019 Abnormal LFTs (liver function tests) 06/27/2013 01/06/2021 Overview: Dr. Kelby Suarez, GI/hepatology. 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 Elevated prostate specific antigen (PSA) 07/19/2007 07/31/2017 documented as of this encounter (statuses as of 03/10/2023) [facility]2023 History of Past illness Narrative* Problem Noted Date Diagnosed Date Resolved Date Status post chest tube placement 09/20/2022 09/27/2022 Urinary retention 09/20/2022 09/27/2022 Diarrhea 03/29/2022 02/07/2023 BPH associated with nocturia 08/08/2021 09/15/2022 Elevated LFTs 02/10/2020 02/07/2023 Hepatic fibrosis (HCC) on elastography 02/09/2018 02/07/2023 Overview: Dr. Kelby Suarez. GI Abnormal result of iron profile testing 07/15/2017 01/11/2022 Overview: Dr.Vincent Suarez Occult GI bleeding 01/19/2017 8 Bladder mass 02/24/2016 07/07/2016 Rash 01/14/2015 04/17/2019 Abnormal LFTs (liver function tests) 06/27/2013 01/06/2021 Overview: Dr. Kelby Suarez, GI/hepatology. 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 Elevated prostate specific antigen (PSA) 07/19/2007 07/31/2017 documented as of this encounter (statuses as of 03/13/2023) [facility]2023 History of Past illness Narrative* Problem Noted Date Diagnosed Date Resolved Date Status post chest tube placement 09/20/2022 09/27/2022 Urinary retention 09/20/2022 09/27/2022 Diarrhea 03/29/2022 02/07/2023 BPH associated with nocturia 08/08/2021 09/15/2022 Elevated LFTs 02/10/2020 02/07/2023 Hepatic fibrosis (HCC) on elastography 02/09/2018 02/07/2023 Overview: Dr. Kelby Suarez. GI Abnormal result of iron profile testing 07/15/2017 01/11/2022 Overview: Dr.Vincent Suarez Occult GI bleeding 01/19/2017 8 Bladder mass 02/24/2016 07/07/2016 Rash 01/14/2015 04/17/2019 Abnormal LFTs (liver function tests) 06/27/2013 01/06/2021 Overview: Dr. Kelby Suarez, GI/hepatology. 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 Elevated prostate specific antigen (PSA) 07/19/2007 07/31/2017 documented as of this encounter (statuses as of 03/31/2023) [facility]2023 History of Past illness Narrative* Problem Noted Date Diagnosed Date Resolved Date Status post chest tube placement 09/20/2022 09/27/2022 Urinary retention 09/20/2022 09/27/2022 Diarrhea 03/29/2022 02/07/2023 BPH associated with nocturia 08/08/2021 09/15/2022 Elevated LFTs 02/10/2020 02/07/2023 Hepatic fibrosis (HCC) on elastography 02/09/2018 02/07/2023 Overview: Dr. Kelby Suarez. GI Abnormal result of iron profile testing 07/15/2017 01/11/2022 Overview: Dr.Vincent Suarez Occult GI bleeding 01/19/2017 8 Bladder mass 02/24/2016 07/07/2016 Rash 01/14/2015 04/17/2019 Abnormal LFTs (liver function tests) 06/27/2013 01/06/2021 Overview: Dr. Kelby Suarez, GI/hepatology. 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 Elevated prostate specific antigen (PSA) 07/19/2007 07/31/2017 documented as of this encounter (statuses as of 04/02/2023) [facility]20[facility] History of Past illness Narrative* Problem Noted Date Diagnosed Date Resolved Date Status post chest tube placement 09/20/2022 09/27/2022 Urinary retention 09/20/2022 09/27/2022 Diarrhea 03/29/2022 02/07/2023 BPH associated with nocturia 08/08/2021 09/15/2022 Elevated LFTs 02/10/2020 02/07/2023 Hepatic fibrosis (HCC) on elastography 02/09/2018 02/07/2023 Overview: Dr. Kelby Suarez. GI Abnormal result of iron profile testing 07/15/2017 01/11/2022 Overview: Dr.Vincent Suarez Occult GI bleeding 01/19/2017 8 Bladder mass 02/24/2016 07/07/2016 Rash 01/14/2015 04/17/2019 Abnormal LFTs (liver function tests) 06/27/2013 01/06/2021 Overview: Dr. Kelby Suarez, GI/hepatology. 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 Elevated prostate specific antigen (PSA) 07/19/2007 07/31/2017 documented as of this encounter (statuses as of 04/07/2023) [facility] History of Past illness Narrative* Problem Noted Date Diagnosed Date Resolved Date Status post chest tube placement 09/20/2022 09/27/2022 Urinary retention 09/20/2022 09/27/2022 Diarrhea 03/29/2022 02/07/2023 BPH associated with nocturia 08/08/2021 09/15/2022 Elevated LFTs 02/10/2020 02/07/2023 Hepatic fibrosis (HCC) on elastography 02/09/2018 02/07/2023 Overview: Dr. Kelby Suarez. GI Abnormal result of iron profile testing 07/15/2017 01/11/2022 Overview: Dr.Vincent Suarez Occult GI bleeding 01/19/2017 8 Bladder mass 02/24/2016 07/07/2016 Rash 01/14/2015 04/17/2019 Abnormal LFTs (liver function tests) 06/27/2013 01/06/2021 Overview: Dr. Kelby Suarez, GI/hepatology. 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 Elevated prostate specific antigen (PSA) 07/19/2007 07/31/2017 documented as of this encounter (statuses as of 04/09/2023) [facility] History of Past illness Narrative* Problem Noted Date Diagnosed Date Resolved Date Status post chest tube placement 09/20/2022 09/27/2022 Urinary retention 09/20/2022 09/27/2022 Diarrhea 03/29/2022 02/07/2023 BPH associated with nocturia 08/08/2021 09/15/2022 Elevated LFTs 02/10/2020 02/07/2023 Hepatic fibrosis (HCC) on elastography 02/09/2018 02/07/2023 Overview: Dr. Kelby Suarez. GI Abnormal result of iron profile testing 07/15/2017 01/11/2022 Overview: Dr.Vincent Suarez Occult GI bleeding 01/19/2017 8 Bladder mass 02/24/2016 07/07/2016 Rash 01/14/2015 04/17/2019 Abnormal LFTs (liver function tests) 06/27/2013 01/06/2021 Overview: Dr. Kelby Suarez, GI/hepatology. 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 Elevated prostate specific antigen (PSA) 07/19/2007 07/31/2017 documented as of this encounter (statuses as of 04/10/2023) [facility] History of Past illness Narrative* Problem Noted Date Diagnosed Date Resolved Date Status post chest tube placement 09/20/2022 09/27/2022 Urinary retention 09/20/2022 09/27/2022 Diarrhea 03/29/2022 02/07/2023 BPH associated with nocturia 08/08/2021 09/15/2022 Elevated LFTs 02/10/2020 02/07/2023 Hepatic fibrosis (HCC) on elastography 02/09/2018 02/07/2023 Overview: Dr. Kelby Suarez. GI Abnormal result of iron profile testing 07/15/2017 01/11/2022 Overview: Dr.Vincent Suarez Occult GI bleeding 01/19/2017 8 Bladder mass 02/24/2016 07/07/2016 Rash 01/14/2015 04/17/2019 Abnormal LFTs (liver function tests) 06/27/2013 01/06/2021 Overview: Dr. Kelby Suarez, GI/hepatology. 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 Elevated prostate specific antigen (PSA) 07/19/2007 07/31/2017 documented as of this encounter (statuses as of 04/14/2023) [facility] History of Past illness Narrative* Problem Noted Date Diagnosed Date Resolved Date Status post chest tube placement 09/20/2022 09/27/2022 Urinary retention 09/20/2022 09/27/2022 Diarrhea 03/29/2022 02/07/2023 BPH associated with nocturia 08/08/2021 09/15/2022 Elevated LFTs 02/10/2020 02/07/2023 Hepatic fibrosis (HCC) on elastography 02/09/2018 02/07/2023 Overview: Dr. Kelby Suarez. GI Abnormal result of iron profile testing 07/15/2017 01/11/2022 Overview: Dr.Vincent Suarez Occult GI bleeding 01/19/2017 8 Bladder mass 02/24/2016 07/07/2016 Rash 01/14/2015 04/17/2019 Abnormal LFTs (liver function tests) 06/27/2013 01/06/2021 Overview: Dr. Kelby Suarez, GI/hepatology. 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 Elevated prostate specific antigen (PSA) 07/19/2007 07/31/2017 documented as of this encounter (statuses as of 04/15/2023) [facility] History of Past illness Narrative* Problem Noted Date Diagnosed Date Resolved Date Status post chest tube placement 09/20/2022 09/27/2022 Urinary retention 09/20/2022 09/27/2022 Diarrhea 03/29/2022 02/07/2023 BPH associated with nocturia 08/08/2021 09/15/2022 Elevated LFTs 02/10/2020 02/07/2023 Hepatic fibrosis (HCC) on elastography 02/09/2018 02/07/2023 Overview: Dr. Kelby Suarez. GI Abnormal result of iron profile testing 07/15/2017 01/11/2022 Overview: Dr.Vincent Suarez Occult GI bleeding 01/19/2017 8 Bladder mass 02/24/2016 07/07/2016 Rash 01/14/2015 04/17/2019 Abnormal LFTs (liver function tests) 06/27/2013 01/06/2021 Overview: Dr. Kelby Suarez, GI/hepatology. 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 Elevated prostate specific antigen (PSA) 07/19/2007 07/31/2017 documented as of this encounter (statuses as of 04/17/2023) [facility] History of Past illness Narrative* Problem Noted Date Diagnosed Date Resolved Date Status post chest tube placement 09/20/2022 09/27/2022 Urinary retention 09/20/2022 09/27/2022 Diarrhea 03/29/2022 02/07/2023 BPH associated with nocturia 08/08/2021 09/15/2022 Elevated LFTs 02/10/2020 02/07/2023 Hepatic fibrosis (HCC) on elastography 02/09/2018 02/07/2023 Overview: Dr. Kelby Suarez. GI Abnormal result of iron profile testing 07/15/2017 01/11/2022 Overview: Dr.Vincent Suarez Occult GI bleeding 01/19/2017 8 Bladder mass 02/24/2016 07/07/2016 Rash 01/14/2015 04/17/2019 Abnormal LFTs (liver function tests) 06/27/2013 01/06/2021 Overview: Dr. Kelby Suarez, GI/hepatology. 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 Elevated prostate specific antigen (PSA) 07/19/2007 07/31/2017 documented as of this encounter (statuses as of 04/18/2023) [facility]04-12-2023 History of Past illness Narrative* Problem Noted Date Diagnosed Date Resolved Date Status post chest tube placement 09/20/2022 09/27/2022 Urinary retention 09/20/2022 09/27/2022 Diarrhea 03/29/2022 02/07/2023 BPH associated with nocturia 08/08/2021 09/15/2022 Elevated LFTs 02/10/2020 02/07/2023 Hepatic fibrosis (HCC) on elastography 02/09/2018 02/07/2023 Overview: Dr. Kelby Suarez. GI Abnormal result of iron profile testing 07/15/2017 01/11/2022 Overview: Dr.Vincent Suarez Occult GI bleeding 01/19/2017 8 Bladder mass 02/24/2016 07/07/2016 Rash 01/14/2015 04/17/2019 Abnormal LFTs (liver function tests) 06/27/2013 01/06/2021 Overview: Dr. Kelby Suarez, GI/hepatology. 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 Elevated prostate specific antigen (PSA) 07/19/2007 07/31/2017 documented as of this encounter (statuses as of 04/20/2023) [facility] History of Past illness Narrative* Problem Noted Date Resolved Date Status post chest tube placement 09/20/2022 09/27/2022 Urinary retention 09/20/2022 09/27/2022 BPH associated with nocturia 08/08/202112/2022 Abnormal result of iron profile testing 07/15/19 18 01/11/2022 Overview: Dr.Vincent Suarez Occult GI bleeding 01/19/2017 07/31/2017 Bladder mass 02/24/2016 07/07/2016 Rash 01/14/2015 04/17/2019 Abnormal LFTs (liver function tests) 06/27/2013 01/06/2021 Overview: Dr. Kelby Suarez, GI/hepatology. 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 Elevated prostate specific antigen (PSA) 008 07/31/2017 documented as of this encounter (statuses as of 10/07/2022) [facility]04-11-2023 Surgical operation note* Operative Report - Maxi Perez MD - 09/19/2022 9:35 AM EDT THORACENTESIS NOTE SERVICE DATE: 09/19/2022 SERVICE TIME: 10:30 AM LOCATION: Outpatient PROCEDURE: Right Thoracentesis with Ultrasound guidance RECREATION MANAGER: Maxi Perez MD AND DRYING SUPERVISOR COOKING CASING: Keon Fernandez (resident) REFERRING PHYSICIAN/SERVICE PRE - PROCEDURE DIAGNOSIS: Pleural effusion POST PROCEDURE DIAGNOSIS: Pleural effusion INDICATION: Therapeutic SAFE PRACTICE: Informed consent obtained and filed in patient's chart. SAFE PRACTICE Sign in Communication: Completed. Time Out: The procedural team confirmed the Correct Patient, the Correct Procedure, the Correct Site and the Correct Position (if applicable) during the audible time out: Completed. Sign Out Communication: Completed. PROCEDURE START TIME: 956 IMAGING GUIDANCE: Ultrasound was used. Images were not recorded. ULTRASOUND FINDINGS: The Right chest was scanned using ultrasound. A large sized effusion was seen. Septations: Absent. Pleural nodules: Absent. Pleural thickening was Absent. ANESTHESIA: Local, using 10ml of 2 % Lidocaine. SEDATION: No PROCEDURE DETAIL: After scanning the chest the appropriate site for thoracentesis was marked and was prepped using Chlorhexidine Gluconate Local anesthesia was administered. A standard thoracentesis needle and catheter were advanced into the right fluid collection without any difficulty. Once the fluid collection was found, the catheter was advanced further into the pleural space, the needle was removed, and drainage was initiated using a wall suction method. Once drainage was completed the catheter was removed and the site was bandaged. The fluid was sent to the lab for further analysis. FLUID COLOR: Serous TOTAL FLUID REMOVED: 3.1L THORACENTESIS PRESSURES: Intrapleural pressures not measured. PROCEDURE END TIME: 1027 PROCEDURE TERMINATED DUE TO: Cough and No further drainage IMMEDIATE COMPLICATIONS: None POST PROCEDURE ULTRASOUND: Not done IMPRESSION: Completed Right thoracentesis with approximately 3.1L of fluid withdrawal. Estimated blood loss: Minimal. I was present for the entire procedure. This service has been performed in part by a resident/fellow under attending's direction. SIGNATURE: Casa Magallon DO PATIENT NAME: Jesus Sosa DATE: September 19, 2022 TIME: 10:30 AM PAGER/CONTACT #: I was present during the entire procedure Maxi Perez MD documented in this encounterK[facility] Miscellaneous Notes* Telephone Encounter - Tevin De La Cruz MD - 09/13/2022 10:33 PM EDT Hiram Can you please return the call, and let the patient know: His MELD-Na score: 17 /MELD score: 15 -> driven largely by renal function (serum creatinine: 1.64 mg/dL ), as well as total bilirubin (which is predom unconjugated) I will on[place] back to the transplant office to get him scheduled Thanks * Telephone Encounter - Dee Pardo RN - 09/13/2022 3:03 PM EDT Patient called to update on his visit to primary care doctor and was diagnosed with inguinal hernia. He was referred to a surgeon in [place]. The surgeon in [place] referred him to [facility] surgery. Scheduling number provided to him He also states he is currently scheduled for a TIPS 09/20/22. He is also asking if Dr Weir has referred him to Transplant. Told him I would ask. Dee Pardo RN September 13, 2022 3:10 PM documented in this encounterK[facility]04-[facility]23 History of Present illness Narrative* Essence Weston MD - 09/12/2022 10:39 AM EDT HISTORY AND PHYSICAL Jesus Sosa 1950 REFERRING PHYSICIAN: Willem Madsen MD CHIEF COMPLAINT: Consult (Possible right inguinal hernia) HPI: The patient is a 72 year old male with a complaint of right groin pain. He was rolling out of bed approximately 2 weeks ago started develop severe pain in his right groin area noticed some swelling in the area. It comes and goes. It has gradually been improving with discomfort. . The patient is being seen by me today at the request of Dr. Willem Madsen MD for my opinion and advice regarding Right inguinal hernia (primary encounter diagnosis) Nonalcoholic fatty liver disease without nonalcoholic steatohepatitis (durant) Hepatic fibrosis (hcc) on elastography. PAST MEDICAL HISTORY Diagnosis Date Abnormal LFTs (liver function tests) 06/27/2013 F/U [facility] Arthritis Asthma Bladder neck obstruction 05/26/2009 BPH with obstruction/lower urinary tract symptoms Cancer (HCC) Chronic prostatitis 05/26/2009 Coronary artery disease Elevated prostate specific antigen (PSA) 07/19/2007 Esophageal reflux 1998 admitted for chest pain Essential hypertension 04/02/2009 Hepatic fibrosis (HCC) on elastography 02/09/2018 Dr. Kelby Suarez. 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 PMH - PAST MEDICAL HISTORY OF 1998 shingles without rash RBBB (right bundle branch block) 03/30/2009 Snoring Stented coronary artery 07/18/2017 MICHELLE to diagonal and mid LAD. Tubular adenoma of colon 02/08/2017 Umbilical hernia 01/08/2014 Unspecified essential hypertension 04/02/2009 PAST SURGICAL HISTORY Procedure Laterality Date CC CORONARY STENT 07/18/2017 MICHELLE x 2 to mild LAD and diagonal COLONOSCOPY FLX DX W/COLLJ SPEC WHEN PFRMD 02/08/2017 Colonoscopy COLONOSCOPY FLX DX W/COLLJ SPEC WHEN PFRMD 01/07/2020 Colonoscopy CYSTOSCOPY 10/12/2020 EGD 02/01/2021 EGD 01/05/2022 ESOPHAGOGASTRODUODENOSCOPY TRANSORAL DIAGNOSTIC 01/07/2020 EGD PARACENTESIS PROSTATE NEEDLE BIOPSY 05/19/2009 PROSTATE NEEDLE BIOPSY 01/02/2013 PROSTATECTOMY SUPRAPUBIC SUBTOTAL 1/2 STAGES 08/08/2021 + Umbilical hernia repair REMV CATARACT EXTRACAP,INSERT LENS 10/18/2020 10/04/20, 10/18/20 Current Outpatient Medications Medication Sig carvedilol (COREG) 3.125 mg tablet Take 2 tablets by mouth twice daily with meals. fenofibrate nanocrystallized (TRICOR) 48 mg tablet Take 1 tablet by mouth once daily. furosemide (LASIX) 20 mg tablet TAKE 1 TABLET BY MOUTH EVERY DAY spironolactone (ALDACTONE) 50 mg tablet TAKE 1 TABLET BY MOUTH EVERY DAY Cholecalciferol, Vitamin D3, (VITAMIN D-3) 50 mcg (2,000 unit) cap Take 1 capsule by mouth once daily. acetaminophen (TYLENOL) 325 mg tablet Take 2 tablets by mouth every 4 hours as needed for pain. alirocumab (PRALUENT PEN) 150 mg/mL Inject 150 mg subcutaneously every 2 weeks. Per cabbage salter.inplace of statin aspirin(ECOTRIN LOW STRENGTH 81 MG TAB) Take one(1) tablet daily. No current facility-administered medications for this visit. ALLERGIES: Pnhmuuy-Cov-Tjl Reductase Inhibitors PERSONAL HISTORY: Social History Tobacco Use Smoking status: Former Types: Cigars Smokeless tobacco: Never Tobacco comments: Last cigar 07/17/2017 Vaping Use Vaping Use: Never used Substance Use Topics Alcohol use: Yes Alcohol/week: 5.0 standard drinks Types: 1 Glasses of Wine (5oz), 1 Mixed Drinks per week Comment: one drink or shot once weekly occassional glass of wine Drug use: No FAMILY HISTORY: FAMILY HISTORY Problem Relation Age of Onset Arthritis Mother Heart Mother Pacemaker Stroke Mother w/ bowel obstruction Cancer Mother skin Heart Father Pacemaker Cancer Father skin Lipids Brother Lipids Brother REVIEW OF SYMPTOMS: The review of systems data was entered by the nurse and reviewed by ca Nursing Notes: Phuong Nicole RN 09/12/2022 10:20 AM Signed REVIEW OF SYSTEMS: General: The patient denies fatigue, NOTES weight loss, denies weight gain, denies feeling hot, andNOTES feelings of cold. Eyes: The patient denies glaucoma, denies eye injury/surgery, wears glasses or contacts. Ear/Nose/Throat: The patient denies allergies, denies hayfever, denies ear infections, and denies bloody noses. Cardiovascular: The patient denies chest pain, NOTES heart disease, NOTES high blood pressure, NOTES pulmonary hypertension, NOTES cardiac stent, denies prior heart attack, denies irregular heart beat, NOTES high cholesterol, denies poor circulation, denies heart failure, other cardiac issues, denies claudication, denies cold feet, denies peripheral arterial stent. Respiratory: The patient denies tuberculosis, denies pneumonia, denies frequent cough, denies pulmonary embolism, denies shortness of breath, denies coughing up blood, NOTES COPD, NOTES asthma, and NOTES VANESSA. Gastrointestinal: The patient denies difficulty swallowing, NOTES acid reflux, denies ulcers, denies vomiting, denies jaundice/hepatitis, denies gallbladder problems, denies black or tarry stools, NOTES hemorrhoids, denies bleeding from rectum, denies diverticulitis, denies constipation, NOTES diarrhea, denies loss of stool control, NOTES hernias, and NOTES cirrhosis secondary to DURANT. Kidney/Bladder: The patient denies kidney stones, NOTES kidney failure, denies urine infections, and denies bloody urine. Skin: The patient denies a history of skin cancer, denies bleeding/changing moles, and denies a history of skin rash. Neurologic: The patient denies a history of epilepsy/convulsions, denies headaches, denies head/spinal injuries, and denies stroke/TIA. Psychiatric: The patient denies psychiatric medications, denies depression, and denies voices, denies substance abuse. Endocrine: The patient denies thyroid disorders, denies diabetes, and denies hormonal problems. Hematologic: The patient denies a history of bruising, denies bleeding, and denies anemia, denies blood clots. Infections: The patient denies a history of measles and mumps, denies rheumatic fever, and denies sexually transmitted diseases. Musculoskeletal: The patient denies back pain/injury, denies back problems, denies sciatica, deniesknee/foot trouble, denies arthritis, or denies gout. When was patient's last Mammogram screening? N/A Last Colonoscopy: 01/07/2020 Phuong Nicole RN PHYSICAL EXAMINATION: General: The patient is 72 year old male, well nourished, well hydrated in no acute distress. The patient is oriented to time, place, and person. VITALS: Blood pressure 102/61, pulse 81, temperature 36.7 C (98.1 F), height 174 cm (5' 8.5), weight 91.3 kg (201 lb 3.2 oz), SpO2 93 %. HEENT: Normal cephalic, ataumatic, pupils are equally round, sclera are anicteric, mucous membranesare moist, oropharynx is clear. Neck has no masses, asymmetry or lymphadenopathy. Thyroid is unremarkable. Respiratory: Clear to auscultation and percussion. Normal respiratory excursion and pattern. Cardiac: Examination is regular rate and rhythm. Abdominal exam: Soft, nontender, positive small reducible right inguinal hernia is identified. A large incisional hernia at his umbilicus is identified. He has notable fluid shifts and ascites identified.. No hepatosplenomegaly. No palpable hernias. Rectal exam: exam deferred Extremities: no clubbing, cyanosis or edema. No adenopathy. Other: LABORATORY VALUES: As Noted RADIOLOGIC STUDIES: As Noted Assessment IMPRESSION: Right inguinal hernia (primary encounter diagnosis) Nonalcoholic fatty liver disease without nonalcoholic steatohepatitis (durant) Hepatic fibrosis (hcc) on elastography PLAN: I believe this patient will need to be evaluated by the hernia center up in the main campus. He is going to be undergoing a TIPS procedure in the near future I think he is too high risk to be done anywhere else other than the main campus Diagnoses: (K40.90) Right inguinal hernia (primary encounter diagnosis) (K76.0) Nonalcoholic fatty liver disease without nonalcoholic steatohepatitis (DURANT) (K74.00) Hepatic fibrosis (HCC) on elastography My findings have been communicated to Dr. Willem Madsen MD via shared medical record. This note will be forwarded to Dr. Willem Madsen MD. Return to Clinic: The patient is instructed to follow-up with me as needed. Essence Weston III, MD documented in this encounterK[facility]04-04-[facility]23 Nurse Note* Phuong Nicole RN - 09/12/2022 10:16 AM EDT REVIEW OF SYSTEMS: General: The patient denies fatigue, NOTES weight loss, denies weight gain, denies feeling hot, andNOTES feelings of cold. Eyes: The patient denies glaucoma, denies eye injury/surgery, wears glasses or contacts. Ear/Nose/Throat: The patient denies allergies, denies hayfever, denies ear infections, and denies bloody noses. Cardiovascular: The patient denies chest pain, NOTES heart disease, NOTES high blood pressure, NOTES pulmonary hypertension, NOTES cardiac stent, denies prior heart attack, denies irregular heart beat, NOTES high cholesterol, denies poor circulation, denies heart failure, other cardiac issues, denies claudication, denies cold feet, denies peripheral arterial stent. Respiratory: The patient denies tuberculosis, denies pneumonia, denies frequent cough, denies pulmonary embolism, denies shortness of breath, denies coughing up blood, NOTES COPD, NOTES asthma, and NOTES VANESSA. Gastrointestinal: The patient denies difficulty swallowing, NOTES acid reflux, denies ulcers, denies vomiting, denies jaundice/hepatitis, denies gallbladder problems, denies black or tarry stools, NOTES hemorrhoids, denies bleeding from rectum, denies diverticulitis, denies constipation, NOTES diarrhea, denies loss of stool control, NOTES hernias, and NOTES cirrhosis secondary to DURANT. Kidney/Bladder: The patient denies kidney stones, NOTES kidney failure, denies urine infections, and denies bloody urine. Skin: The patient denies a history of skin cancer, denies bleeding/changing moles, and denies a history of skin rash. Neurologic: The patient denies a history of epilepsy/convulsions, denies headaches, denies head/spinal injuries, and denies stroke/TIA. Psychiatric: The patient denies psychiatric medications, denies depression, and denies voices, denies substance abuse. Endocrine: The patient denies thyroid disorders, denies diabetes, and denies hormonal problems. Hematologic: The patient denies a history of bruising, denies bleeding, and denies anemia, denies blood clots. Infections: The patient denies a history of measles and mumps, denies rheumatic fever, and denies sexually transmitted diseases. Musculoskeletal: The patient denies back pain/injury, denies back problems, denies sciatica, deniesknee/foot trouble, denies arthritis, or denies gout. When was patient's last Mammogram screening? N/A Last Colonoscopy: 01/07/2020 Phuong Nicole RN documented in this encounterK[facility]03-29-2023 Miscellaneous Notes* Telephone Encounter - Willem Madsen MD - 09/06/2022 12:40 PM EDT Ordered. * Telephone Encounter - Aylin Candelaria LPN - 09/06/2022 8:42 AM EDT Patient scheduled for nurse visit 09/18/22 to receive Hepatitis B vaccine. Please place order at this time. Aylin Candelaria LPN documented in this encounterKet[facility] Health03-27-2023 Miscellaneous Notes* Telephone Encounter - Dee Pardo RN - 09/04/2022 11:16 AM EDT Patient called and left a message. Returned his call. He says its been over 10 days and he still ishaving a lot of pain from the groin issue . He now feels a lump there in the appendix area. He isnot sure what it is and I told him I didn't either. Told him to call his PCP or go to the emergencyroom if he cant be seen there. Told him to call me to update after hes seen. Dee Pardo RN September 04, 2022 11:25 AM documented in this [facility]03-24-[facility]23 Surgical operation note* Brief Op Note - Dionte Soria MD - 09/01/2022 11:58 AM EDTSummary: RIGHT US guided thoracentesis Images from the original note were not included. PROCEDURE NOTE: THORACENTESIS Outpatient PLEASE DO NOT REMOVE FROM THE CHART OR MODIFY PRINTED COPY Patient Name: Jesus Sosa Cardiovascular Disease Specialist: Dionte Soria MD Analyst Programmer: Rajat Chavez MD Primary Care Physician: Willem Madsen MD Procedure: right Thoracentesis ICD-10-CM Code: J90 Pre-procedure dx: Bilateral pleural effusion (R>>>L) in the setting of cirrhosis. Post procedure dx: Bilateral pleural effusion (R>>>L) in the setting of cirrhosis. Indication: Therapeutic INFORMED CONSENT Informed consent obtained and filed in patient's chart. SAFE PRACTICE Sign in Communication: Completed. Time Out: The procedural team confirmed the Correct Patient, the Correct Procedure, the Correct Site and the Correct Position (if applicable) during the audible time out: Completed. Sign Out Communication: Completed. Anesthesia: 10 ml 1% Lidocaine Sedation: No Estimated Blood Loss: Minimal After scanning the right chest using a portable ultrasound, the appropriate site for the thoracentesis was marked and recorded. Loculations: Absent. Procedure Details: The right posterior chest was prepped using Chlorhexidine Gluconate. Local anesthesia was administered. A standard thoracentesis needle and catheter/tube were advanced into the right fluid collection without any difficulty. Once the fluid collection was found, the catheter/tube was advanced further into the pleural space and the needle was removed. The catheter/tube was then attached to a drainage line and a drainage container, and the fluid was removed. Once the drainage wascompleted, the catheter/tube was removed and a dressing/bandage was placed at the thoracentesis site. Total Fluid Removed: 3100 ml's Procedure Start: 11:18 Procedure Finish: 11:35 Fluid Color: serous Thoracentesis Pressures: Intrapleural pressures not measured. Procedure Termination: Cough and Pain Post Procedure Ultrasound: done, with the following findings: Small to moderate residual effusion. Lung sliding at all poitns. Immediate Complications: None Impression: Completed right thoracentesis with approximately 3100 ml's of fluid return. There were no complications. The procedure was uncomplicated and patient feeling improved post drainage. He is scheduled for repeat tap the day prior to his TIPS the second week of September. I was present during the entire procedure and participated in all aspects of it. Dionte Soria MD 09/01/2022 11:58 AM documented in this encounterK[facility] Health03-23-2023 Miscellaneous Notes* Telephone Encounter - Dee Pardo RN - 08/31/2022 2:24 PM EDT Called patient and updated him on Dr Cash response. No further questions/concerns. Dee Pardo RN August 31, 2022 2:25 PM * Telephone Encounter - Dee Pardo RN - 08/31/2022 1:51 PM EDT Called patient and he updated me on how he thinks he pulled a groin muscle getting out of bed. He stated he has taken a few does of ibuprofen and it has helped. He asked if he could take a dose of tylenol instead as he has upcoming jeannie/thoras. I told him he has to be under 2000mg / day. Verbalized understanding and will call back if he has any other issues or questions/concerns. Dee Pardo RN August 31, 2022 1:54 PM * Telephone Encounter - Ruba Archuleta - 08/31/2022 10:36 AM EDT Mango Sosa ([facility]) [phone] Patient called to inquire if he can take Tylenol or Ibuprofen, patient has a groin muscle issue, hewould like a rt call to discuss. documented in this encounterK[facility] Health03-22-2023 Miscellaneous Notes* Telephone Encounter - Sheri Posey Auto Body Repair Technician - 08/30/2022 2:31 PM EDT Patient called in to scheduled 2 appointments for Thoracentesis. 09/01/2022 and 09/19/2022. I sent message to Dr. Ross and staff. documented in this encounterKettering Health03-14-2023 Miscellaneous Notes* Telephone Encounter - Anjelica Enriquez PA-C - 08/22/2022 2:04 PM EDT Returning patient call after he reached out to the office to inquire about scheduling. Patient expressed understanding at delays in scheduling but emphasized he would like to be scheduled as soon as possible. Informed patient that his case had been escalated to hopefully expedite scheduling. Patient thanked me for the call and expressed desire to be kept in the loop with any updates. Fabian Franks and Tawny Garza notified regarding delays in scheduling. Anjelica Enriquez PA-C August 22, 2022 2:08 PM documented in this encounterKettering Health03-13-2023 History of Present illness Narrative* Florence Baez RN - 08/21/2022 8:40 AM EDT INSIGHT CD[facility] TELEPHONIC OUTREACH Provider Action/FYI: CKD monthly Contact made with patient: Yes Patient identified by name and . Discussed care with patient It s nice talking to you again. As a reminder, this is our bi-weekly check-in where I will be asking you questions about your health. This will only take a few minutes of your time. Is this a good time? Yes Symptoms -has had multiple procedures since last contact -lots of ups and downs recently with overall status but he is getting along -still waiting to hear back from docs regarding TIPS plans on calling this week to confirm -with thoracentesis he is loosing about 6 pounds of water weight when he has it done. -weight is already back up towards 180 but he notes he is also eating some more so hard to tell howmuch is fluid weight vs potential positive weight gain due to increased PO -they have also started some paperwork towards potential liver transplant status pending how TIPS procedure goes What Chronic Disease(s) does the patient have: CKD Do you check your blood pressures at home? Yes, Enter readings: its good Do you have new or worse shortness of breath with activity? No Do you feel like you are dehydrated for any reason, including not being able to eat or drink normally, or having less urine/much darker urine than normal for you? No Do you check your daily weight at home? Yes, Have you noticed a sudden gain in weight greater than three pounds in a day or three pounds in a week? No Are you having any other symptoms that your PCP needs to know about? No Symptoms: n/a Symptom Escalation NILSON Education Ordered -: No The patient required an escalation for symptom(s)? No Medications Do you have any questions about taking your medication or which medications you should be on? No Do you need any medication refills at this time, including any of the medications you might take only when needed? No Social We would like to make sure you have what you need so that your basic needs are met- including your personal safety, food, housing, transportation and medications? Would you like to speak with a social work store team leader to help give you support for any of these needs? No It can be normal to feel anxious or down during a time like this. Would you like to talk to a mental health professional about how you have been feeling? No Closing Thank you for taking the time to talk with me today. We want to work with you to ensure that we arekeeping your medical condition(s) well-controlled and to keep you healthy and out of the doctor's office or hospital. It s also not too late for me to sign you up for automated weekly questionnaires through [employer]. This is an easy way for us to stay connected each week. Are you interested? No, I understand. We can always sign you up in the future if you change your mind. Just as a reminder, will continue to call you every other week to check in on your health. Our calls should take 10-15 minutes or less. Remember, if you have concerns in between our calls, please call your PCP's office right away. Thank you. Enter next patient outreach date for two weeks on the same day of the week as today in the Track PtOutreach and End outreach. documented in this encounterK[facility]03-[facility]23 Surgical operation note* Operative Report - Holly Shell MD - 08/14/2022 2:28 PM EST THORACENTESIS NOTE SERVICE DATE: 08/14/2022 SERVICE TIME: 3:27 PM LOCATION: Outpatient PROCEDURE: Right Thoracentesis with Ultrasound guidance RECREATION MANAGER: Holly Shell MD AND DRYING SUPERVISOR COOKING CASING: Sid Vasquez MD (fellow) REFERRING PHYSICIAN/SERVICE Hepatology PRE - PROCEDURE DIAGNOSIS: Hepatic Hydrothorax POST PROCEDURE DIAGNOSIS: Hepatic Hydrothorax INDICATION: Therapeutic SAFE PRACTICE: Informed consent obtained and filed in patient's chart. SAFE PRACTICE Sign in Communication: Completed. Time Out: The procedural team confirmed the Correct Patient, the Correct Procedure, the Correct Site and the Correct Position (if applicable) during the audible time out: Completed. Sign Out Communication: Completed. PROCEDURE START TIME: 14:56 IMAGING GUIDANCE: Ultrasound was used. Images were recorded. ULTRASOUND FINDINGS: The Right chest was scanned using ultrasound. A moderate sized effusion was seen. Septations: Absent. Pleural nodules: Absent. Pleural thickening was Absent. ANESTHESIA: Local, using 10 ml of 1% Lidocaine. SEDATION: No PROCEDURE DETAIL: After scanning the chest the appropriate site for thoracentesis was marked and was prepped using Chlorhexidine Gluconate Local anesthesia was administered. A standard thoracentesis needle and catheter were advanced into the right fluid collection without any difficulty. Once the fluid collection was found, the catheter was advanced further into the pleural space, the needle was removed, and drainage was initiated using a wall suction method. Once drainage was completed the catheter was removed and the site was bandaged. The fluid was sent to the lab for further analysis. FLUID COLOR: Serous TOTAL FLUID REMOVED: 3600 mL THORACENTESIS PRESSURES: Intrapleural pressures not measured. PROCEDURE END TIME: 15:27 PROCEDURE TERMINATED DUE TO: Pain IMMEDIATE COMPLICATIONS: None POST PROCEDURE ULTRASOUND: not done IMPRESSION: Completed Right thoracentesis with approximately 3600 mL of fluid withdrawal. Estimatedblood loss: Minimal. I was present for the entire procedure. This service has been performed in part by a resident/fellow under attending's direction. SIGNATURE: Holly Shell MD PATIENT NAME: Jesus Sosa DATE: August 14, 2022 TIME: 3:27 PM PAGER/CONTACT #: documented in this encounterK[facility]03-03-2023 NoteHNO ID: [id number] Author: Paulino Ontiveros RN Service: Nursing Author Type: Registered Nurse Type: Nursing Progress Note Filed: 08/11/2022 11:20 AM Note Text: Patient arrived post paracentesis, site wnl. No drainage.[facility] 07-28-2022 Miscellaneous Notes* Telephone Encounter - Anjelica Enriquez PA-C - 07/28/2022 11:14 AM EST Called and spoke with patient. He completed his imaging last week. Plan to schedule TIPS procedure with Dr. Coffman and Dr. Lee. Patient wanted to make sure he was still able to be scheduled. Assured him scheduling paperwork hadbeen filed and the Surgical Coordinators were working to get him scheduled as soon as possible. All questions answered to patient satisfaction. Anjelica Enriquez PA-C July 28, 2022 11:17 AM documented in this encounterKettering Health02-16-2023 Miscellaneous Notes* Telephone Encounter - Anjelica Enriquez PA-C - 07/27/2022 1:12 PM EST INTERVENTIONAL RADIOLOGY PATIENT APPOINTMENT REQUEST July 27, 2022 Jesus Velasquezjoanna [id number] Request: Schedule Requestor: Anjelica Enriquez PA-C Ref.Physician: Dr. Dorothy BONILLA Physician: Dr. Lee and Dr. Coffman Procedure/Request: TIPS Reason/ICD Code: Portal hypertension Priority: routine Scheduling Comments: Please schedule with both Dr. Coffman and Dr. Lee for TIPS Does MD need to be present for consult?: yes IR Procedure Room: No Preferred Room Equipment or Vendor Request: No / N/A Anticipated length of procedure (not including prep or Anesthesia): 2 hours Pre-Procedure Orders: Labs 1 day prior - Ordered Thoracentesis 1 day prior - ordered In person PACC Sedation: General Anesthesia Bed Reservation: Yes - with GI/hepatology Location of Procedure: [facility] [place] documented in this encounterK[facility]02-16-2023 Miscellaneous Notes* Sedation Documentation - Claudia Hartman RN - 07/27/2022 10:30 AM EST 3 liters of ascites fluid was removed via paracentesis. THE FOLLOWING WAS EVALUATED Motivation To Learn: Interested Family/Significant Other Support: Moderate - Family present but overwhelmed Cognitive Ability: Alert and oriented Patient Learns Best By: Verbal Instruction The Following Influencing Factors Were Barriers To This Education Session: None The Following Physical Limitations Were Barriers To This Education Session: None Instruction Provided To: Patient Learning Topic: Procedure/Surgery: PARACENTESIS Patient Evaluation: Verbalizes understanding Follow Up Plan: Follow up as needed Claudia Hartman RN * Sedation Documentation - Claudia Hartman RN - 07/27/2022 10:28 AM EST Needle out. 3 L removed. * Sedation Documentation - Claudia Hartman RN - 07/27/2022 9:57 AM EST 0957: Needle in. Bottle 1. 1001: Bottle 2 1014: Bottle 3 documented in this encounterKettering Health02-14-2023 Surgical operation note* Brief Op Note - Darlene Gary MD - 07/25/2022 11:58 AM EST THORACENTESIS NOTE SERVICE DATE: 07/25/2022 SERVICE TIME: 11:00 LOCATION: Inpatient, 3 PROCEDURE: Right Thoracentesis with Ultrasound guidance RECREATION MANAGER: Ashley Patel AND DRYING SUPERVISOR COOKING CASING: Darlene Gary MD REFERRING PHYSICIAN/SERVICE Dr. Carmella Abarca PRE - PROCEDURE DIAGNOSIS: Pleural effusion POST PROCEDURE DIAGNOSIS: Pleural effusion INDICATION: Therapeutic SAFE PRACTICE: Informed consent obtained and filed in patient's chart. SAFE PRACTICE Sign in Communication: Completed. Time Out: The procedural team confirmed the Correct Patient, the Correct Procedure, the Correct Site and the Correct Position (if applicable) during the audible time out: Completed. Sign Out Communication: Completed. PROCEDURE START TIME: 11:32 IMAGING GUIDANCE: Ultrasound was used. Images were recorded. ULTRASOUND FINDINGS: The Right chest was scanned using ultrasound. A large sized effusion was seen. Septations: Absent. Pleural nodules: Absent. Pleural thickening was Absent. ANESTHESIA: Local, using 9 ml of 1% Lidocaine. SEDATION: No PROCEDURE DETAIL: After scanning the chest the appropriate site for thoracentesis was marked and was prepped using Chlorhexidine Gluconate Local anesthesia was administered. A standard thoracentesis needle and catheter were advanced into the right fluid collection without any difficulty. Once the fluid collection was found, the catheter was advanced further into the pleural space, the needle was removed, and drainage was initiated using a wall suction method. Once drainage was completed the catheter was removed and the site was bandaged. The fluid was sent to the lab for further analysis. FLUID COLOR: Serous TOTAL FLUID REMOVED: 3000 mL THORACENTESIS PRESSURES: Intrapleural pressures not measured. PROCEDURE END TIME: 11:55 PROCEDURE TERMINATED DUE TO: Cough IMMEDIATE COMPLICATIONS: None POST PROCEDURE ULTRASOUND: done, with the following findings: mild pleural fluids, no pneumothorax IMPRESSION: Completed Right thoracentesis with approximately 3000 mL of fluid withdrawal. Estimatedblood loss: None. I was present for the entire procedure. This service has been performed in part by a resident/fellow under attending's direction. SIGNATURE: Darlene Gary MD PATIENT NAME: Jesus Sosa DATE: July 25, 2022 TIME: 11:58 AM PAGER/CONTACT #: Associated attestation - Gloria Calero MD - 07/25/2022 12:01 PM EST I was present for and supervised the entire procedure. Gloria Calero MD July 25, 2022 12:01 PM documented in this encounterK[facility] Health02-09-2023 Miscellaneous Notes* Telephone Encounter - Sherry Dobbins RN - 07/20/2022 5:05 PM EST Patient scheduled for thora on 07/25/22. Sherry Dobbins RN July 20, 2022 5:06 PM * Telephone Encounter - Ruba Archuleta - 07/20/2022 2:55 PM EST Patient called to request a new order for a thoracentesis, he would like to schedule, soon, but would like a rt call to discuss before scheduling. documented in this encounterK[facility] Health02-09-2023 Miscellaneous Notes* Telephone Encounter - Dee Pardo RN - 07/20/2022 11:[address] Cash response sent via [employer] per patient request Dee Pardo RN July 20, 2022 11:12 AM * Telephone Encounter - Tevin De La Cruz MD - 07/20/2022 10:53 AM EST [place] Can you please return the call, and let the patient know: It would be reasonable to do a paracentesis before his TIPs (the radiologists often ask for them, since it makes the procedure easier); we could also arrange for him to have a thoracentesis at the same time If he is symptomatic, though, I would probably suggest he get the two procedures done earlier He can call the pleural service to schedule a thoracentesis w them (I think he has a standing order?); we can set him up for a para anytime that would work for him The COVID infection may be playing a role - ideally, he would not have COVID when he has procedures(- ideally wait a week - but again, if he is symptomatic, we can try to get them done) Thanks * Telephone Encounter - Dee Pardo RN - 07/20/2022 8:49 AM EST Patient called stating he was exposed to Covid. He tested himself and says he was negative. Asymptomatic. Told him if he tests positive/becomes symptomatic he should contact his PCP for medication. He also questined about having a para/thora. And if he should get them now. He has a CT today and atentative TIPS 08/07/22. He says his SOB is ok while seated but walking around and going up and downsteps he is a little SOB. He feels like his last para that they didn't take enough fluid out. Asked him about his weights. He states he has gained about 5 pounds since his last para 07/10/22. Swelling in his legs is increasing. Dee Pardo RN July 20, 2022 8:57 AM documented in this encounterKettering Health02-09-2023 History of Present illness Narrative* Tricia Iqbal RT(R) - 07/20/2022 10:20 AM EST Radiology Service Progress Note DATE OF SERVICE: July 20, 2022 TIME: 11:33 AM PATIENT IDENTITY VERIFICATION COMPLETED USING TWO (2) STANDARD IDENTIFIERS: Name and Date of confirmed by patient verbally. FALL SCREENING: Has the patient had 2 falls in the last year or 1 fall with injury or currently using an Ambulatory Assistive Device (Walker, Cane, Wheelchair, Crutches, etc.)? No PATIENT GENDER DATA: Male PATIENT RELEVANT IMPLANT DATA REVIEWED: Yes ALLERGIES: Reviewed and unchanged CONTRAST ALLERGY: NO. EXAM: CT -CONTRAST INDUCED NEPHROPATHY RISK FACTORS: Patient age > 60 years CREATININE: Creatinine Date Value Ref Range Status 06/23/2022 1.35 (H) 0.73 - 1.22 mg/dL Final 06/14/2022 1.17 0.73 - 1.22 mg/dL Final 06/06/2022 1.29 (H) 0.73 - 1.22 mg/dL Final Estimated Glomerular Filtration Rate Date Value Ref Range Status 06/23/2022 55 (L) >=60 mL/min/1.73m Final Comment: Estimated Glomerular Filtration Rate (eGFR) is calculated using the 2020 CKD-EPI creatinine equation. This equation utilizes serum creatinine, sex, and age as parameters. The creatinine assay has traceable calibration to isotope dilution- mass spectrometry. Refer to KDIGO guidelines for clinical interpretation. In patients with unstable renal function, e.g. those with acute kidney injury, the eGFRmay not accurately reflect actual GFR. eGFR- Date Value Ref Range Status 07/11/2021 >60 Final P.O.C.T. RESULTS: POC done: Yes, See Lab Tab July 20, 2022 TREATMENT: N/A PERIPHERAL IV DATA: Ambulatory: A peripheral IV was started in the Left antecubital site with a Angio cath: 18 gauge. RADIOLOGY DEPARTMENT: CT; Exam(s) Completed: Liver SIGNATURE: RT Ziyad(R) PATIENT NAME: Jesus Sosa DATE: July 20, 2022 TIME: 11:33 AM documented in this encounterKettering Health02-06-2023 History of Present illness Narrative* Tevin De La Cruz MD - 07/17/2022 2:17 PM EST Hepatology Staff I saw and examined the patient. I agree with the resident's findings and plan of care. 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, seen last virtually 06/23/22 Remainder of past medical history is significant for: -h/o hyperlipidemia, dx'ed ~ 6 yrs -h/o hypertension, diagnosed ~ 5 -6 yrs -h/o glucose intolerance -h/o coronary artery disease / [place] -s/p PCI to LAD / Cx 2017 done at [place] [facility] -> on plavix x 3 yrs -h/o obesity; max weight ~ 220 (~ current); prev eval by dance coach in [place] -h/o obstructive sleep apnea - on CPAP x ~ 1 yr -h/o colon polyps 01/2017; last colonoscopy 12/2019 w no polyps -h/o tobacco abuse: ~ 19-> cigars intermittently-> 67 -h/o BPH -h/o hematuria -s/p CT urogram, f/b cystoscopy 10/12/2020 -h/o CKD, stage 3 -s/p robotic assisted laparoscopic suprapubic prostatectomy, umbilical hernia repair 08/08/2021 -told hernia repair did not hold, and would need Mesh for repair Liver disease has been complicated by: -portal hypertension -CKD -gr I EV found on index endoscopy 01/07/20 -Stage 3a chronic kidney disease - SOB, SOBOE / hypoxemia w pulse ox 88% -> on 6L, w moderate to large right pleural effusion -s/p thoracentesis 06/14 x 2L, along w para x 3L -> w no further SOB -s/p repeat thoracentesis done 06/22 x 3600 mL Since last seen -undergoing eval for TIPS - anticipating 08/07/22 -seen in IR -s/p thora x 2 - stable at present though still SOBOE, going up stairs -last para 07/10/22 x 1.4L @ [facility] - no evidence of SBP -lost total of 40#, but now plateauing ~ 175# Current Outpatient Medications Medication Sig carvedilol (COREG) 3.125 mg tablet Take 2 tablets by mouth twice daily with meals. fenofibrate nanocrystallized (TRICOR) 48 mg tablet Take 1 tablet by mouth once daily. furosemide (LASIX) 20 mg tablet TAKE 1 TABLET BY MOUTH EVERY DAY spironolactone (ALDACTONE) 50 mg tablet TAKE 1 TABLET BY MOUTH EVERY DAY Cholecalciferol, Vitamin D3, (VITAMIN D-3) 50 mcg (2,000 unit) cap Take 1 capsule by mouth once daily. acetaminophen (TYLENOL) 325 mg tablet Take 2 tablets by mouth every 4 hours as needed for pain. alirocumab (PRALUENT PEN) 150 mg/mL Inject 150 mg subcutaneously every 2 weeks. Per cabbage salter.inplace of statin aspirin(ECOTRIN LOW STRENGTH 81 MG TAB) Take one(1) tablet daily. iv contrast (will be provided with radiology test) CT LIVER Inject, intravenously, once for 1 dose.No IV access, insert saline lock prior to the beginning of sedation, infusion, injection of imaging exam. Discontinue saline lock post exam. If Pt. has a central line or IVAD, may access for administration according to line specific nursing protocol. Once exam is complete flush line and de-access according to line specific nursing protocol in the CT contrast administration guidelines link. (Patient not taking: Reported on 07/17/2022) Current Facility-Administered Medications Medication Dose Route Frequency perflutren lipid microspheres 1.3 mL in NaCl (PF) 0.9% 10 mL injection (DEFINITY) INTRAVENOUS DIRECTED PRN O/E BP 120/51 (BP Site: Right Arm, BP Position: Sitting, BP Cuff Size: Regular Adult) Pulse 60 Temp36.8 C (98.2 F) (Temporal) Ht 172.7 cm (5' 8) Wt 83.6 kg (184 lb 3.2 oz) SpO2 92% BMI 28.01 kg/m skin: w+d HEENT: nc/at Chest: decr BS post on R to 06/14 CVS: rrr Abd: soft, nt, nd. 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 Fluid overload - Large-volume paracentesis prn - 2 g sodium diet - Daily weights - Continue current diuretics -liver vasc dopplers to decide on candidacy for TIPs 2. Portal Hypertension -Continue on current carvedilol dose 3.125/6.25, following heart rate, blood pressure -Repeat EGD +/- EVL ~12/2022 - but will depend on whether undergoes TIPs or not 3. Cirrhosis Last MELD borderline to consider OLT (but driven in part by unconjugated hyperbilirubinemia); if increasing, low threshold to begin eval (partic if likely to require TIPs) -Repeat imaging scheduled - Repeat labs to recheck MELD score with next blood draw -FibroScan annually -recheck hepatitis B serologies post heplisav 4. hydrothorax - paracentesis as needed, and planning on scheduling thora if develops SOB, directly w pleural service No contraindication to TIPs (pending us dopplers); scheduled to see IR 2/6 Follow-up on the phone RTC ~4 months Tevin De La Cruz MD MELD-Na score: 17 at 06/23/2022 12:45 PM MELD score: 15 at 06/23/2022 12:45 PM Calculated from: Serum Creatinine: 1.35 mg/dL at 06/23/2022 12:45 PM Serum Sodium: 135 mmol/L at 06/23/2022 12:45 PM Total Bilirubin: 2.7 mg/dL at 06/23/2022 12:45 PM INR(ratio): 1.2 at 06/23/2022 12:45 PM Age: 72 years * Jersey Bain MD - 07/17/2022 1:45 PM EST NAME: Jesus Franks [facility] NO: [id number] REFERRING PHYSICIAN: Tevin De La Cruz PRESENTING COMPLAINT: DURANT Cirrhosis HPI: 72M with PMH DURANT Cirrhosis c/b pHTN, PVT, G2EV (last EGD 12/2021- on coreg 6.25 mg BID), PHG, ascites (para x3-last 07/11, on lasix 20/patrick 50), HHT (thora x2- last 06/22/22), unconjugated hyperbilirubinemia, CKD3a presents for follow up. Remainder of past medical history is significant for: -h/o hyperlipidemia, dx'ed ~ 6 yrs -h/o hypertension, diagnosed ~ 5 -6 yrs -h/o glucose intolerance -h/o coronary artery disease / [place] -s/p PCI to LAD / Cx 2017 done at [place] [facility] -> on plavix x 3 yrs -h/o obesity; max weight ~ 220 (~ current); prev eval by dance coach in [place] -h/o obstructive sleep apnea - on CPAP x ~ 1 yr -h/o colon polyps 01/2017; last colonoscopy 12/2019 w no polyps -h/o tobacco abuse: ~ 19-> cigars intermittently-> 67 -h/o BPH -h/o hematuria -s/p CT urogram, f/b cystoscopy 10/12/2020 -h/o CKD, stage 3 -s/p robotic assisted laparoscopic suprapubic prostatectomy, umbilical hernia repair 08/08/2021 -told hernia repair did not hold, and would need Mesh for repair Spoke with IR and planned for elective TIPS on 08/02/22. Last TTE 06/19/22: EF 61, no other valve disease, negative shunt test. He feels shortness of breath is better but still has SOB w/ stairs. Does not feel he needs repeat thora yet. Reports abdominal distension improved after last para but did not feel like he was totallyrelieved (1.4L on 07/11/22). +minimal leg swelling, + fatigue. Denies CP, palpitations, chronic cough. Reports he is watching the Na but reports he is under 2000 mg. Does not have as much protein intake. 40 lb weight loss since 8 months - now maintaining- but has noticed decreased muscle mass. Denies HE, blood in the stool. EV screen: - Last EGD 01/05/22: G2EV in middle esophagus, G1EV in distal EV, severe PHG On Coreg (taking 3.125 and 6.25) BP 120/51 Pulse 60 Temp (Src) 98.2 (Temporal) Ht 5' 8 (1.73m) Wt 184 lb 3.2 oz (83.6kg) SpO2 92% BMI 28.01 kg/(m^2). RUQ US 06/27/22: - Main Portal vein thrombus - No hepatic lesions Para 06/22/22: - One colon Staphylococcus warneri- likely contaminant - TNC 183, Neutro% 7 Thora 06/22/22: Para 07/11/22: - TNC 79 CBC 06/23/22: Plt 176, otherwise nl CMP: Na 135, K 5.0, Cr 1.35; AST 93/ALT 50/ALP 116/ Tb 2.7 Rare ETOH use- once a month; Hx of tobacco use- quit 4 years ago. MELD-Na score: 17 at 06/23/2022 12:45 PM MELD score: 15 at 06/23/2022 12:45 PM Calculated from: Serum Creatinine: 1.35 mg/dL at 06/23/2022 12:45 PM Serum Sodium: 135 mmol/L at 06/23/2022 12:45 PM Total Bilirubin: 2.7 mg/dL at 06/23/2022 12:45 PM INR(ratio): 1.2 at 06/23/2022 12:45 PM Age: 72 years Disclaimer: The MELD Calculator cannot calculate MELD scores for patients on dialysis. REVIEW OF SYSTEMS GENERAL: . HEENT: Negative for severe headaches, negative for changes in hearing or vision. NECK: Negative for lumps, masses or pain. RESPIRATORY: +shortness, no cough. CARDIOVASCULAR: Negative for chest pain or heart palpitations. GASTROINTESTINAL: +rare diarrhea, no constipation. GENITOURINARY: Negative for dysuria or urinary incontinence. MUSCULOSKELETAL: Negative for unexplained joint pains, dislocations or fractures. NEUROLOGIC: Negative for unexplained weakness or vertigo. SKIN: Negative for new lesions or rashes. ENDOCRINE: Negative for cold or heat intolerance . Current Outpatient Medications Medication Sig Dispense Refill carvedilol (COREG) 3.125 mg tablet Take 2 tablets by mouth twice daily with meals. 120 tablet 0 fenofibrate nanocrystallized (TRICOR) 48 mg tablet Take 1 tablet by mouth once daily. 90 tablet 3 furosemide (LASIX) 20 mg tablet TAKE 1 TABLET BY MOUTH EVERY DAY 90 tablet 2 spironolactone (ALDACTONE) 50 mg tablet TAKE 1 TABLET BY MOUTH EVERY DAY 90 tablet 2 Cholecalciferol, Vitamin D3, (VITAMIN D-3) 50 mcg (2,000 unit) cap Take 1 capsule by mouth once daily. acetaminophen (TYLENOL) 325 mg tablet Take 2 tablets by mouth every 4 hours as needed for pain. 12 tablet 0 alirocumab (PRALUENT PEN) 150 mg/mL Inject 150 mg subcutaneously every 2 weeks. Per cabbage salter.inplace of statin aspirin(ECOTRIN LOW STRENGTH 81 MG TAB) Take one(1) tablet daily. 0 iv contrast (will be provided with radiology test) CT LIVER Inject, intravenously, once for 1 dose.No IV access, insert saline lock prior to the beginning of sedation, infusion, injection of imaging exam. Discontinue saline lock post exam. If Pt. has a central line or IVAD, may access for administration according to line specific nursing protocol. Once exam is complete flush line and de-access according to line specific nursing protocol in the CT contrast administration guidelines link. (Patient not taking: Reported on 07/17/2022) 1 Each 0 Current Facility-Administered Medications Medication Dose Route Frequency Provider Last Rate Last Admin perflutren lipid microspheres 1.3 mL in NaCl (PF) 0.9% 10 mL injection (DEFINITY) INTRAVENOUS DIRECTED PRN Tevin De La Cruz MD ALLERGIES Allergen Reactions Qdcjvld-Ogx-Vzt Red* Itching Social History Tobacco Use Smoking status: Former Types: Cigars Smokeless tobacco: Never Tobacco comments: Last cigar 07/17/2017 Substance Use Topics Alcohol use: Yes Alcohol/week: 5.0 standard drinks Types: 1 Glasses of Wine (5oz), 1 Mixed Drinks per week Comment: one drink or shot once weekly occassional glass of wine Drug use: No PAST MEDICAL HISTORY Diagnosis Date Abnormal LFTs (liver function tests) 06/27/2013 F/U [facility] Arthritis Asthma Bladder neck obstruction 05/26/2009 BPH with obstruction/lower urinary tract symptoms Cancer (HCC) Chronic prostatitis 05/26/2009 Coronary artery disease Elevated prostate specific antigen (PSA) 07/19/2007 Esophageal reflux 1999 admitted for chest pain Essential hypertension 04/02/2009 Hepatic fibrosis (HCC) on elastography 02/09/2018 Dr. Kelby Suarez. 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 PMH - PAST MEDICAL HISTORY OF 1998 shingles without rash RBBB (right bundle branch block) 03/30/2009 Snoring Stented coronary artery 07/18/2017 MICHELLE to diagonal and mid LAD. Tubular adenoma of colon 02/08/2017 Umbilical hernia 01/08/2014 Unspecified essential hypertension 04/02/2009 FAMILY HISTORY Problem Relation Age of Onset Arthritis Mother Heart Mother Pacemaker Stroke Mother w/ bowel obstruction Cancer Mother skin Heart Father Pacemaker Cancer Father skin Lipids Brother Lipids Brother PHYSICAL EXAM BP 120/51 Pulse 60 Temp (Src) 98.2 (Temporal) Ht 5' 8 (1.73m) Wt 184 lb 3.2 oz (83.6kg) SpO2 92% BMI 28.01 kg/(m^2). General Appearance: Well appearing, alert, in no acute distress, well-hydrated, well nourished. Eyes: PERRLA, conjunctiva and sclera normal Oropharynx: Lips, tongue, and oral mucosa normal. There is no thrush or oral ulcers. Lungs:decreased bs on right, clear on left Heart: regular rate and rhythm, no murmurs or gallops. Abdomen: soft, distended, dullness on percussion, umbilical hernia+ Extremities: 2+ pitting edema Skin: no jaundice, no spider angiomas, no palmar erythema Neuro:alert, oriented x 3, pleasant and in no acute distress Recent Labs: Hemoglobin (g/dL) Date Value 06/23/2022 13.4 07/11/2021 14.5 Hematocrit (%) Date Value 06/23/2022 39.0 07/11/2021 45.4 WBC (k/uL) Date Value 06/23/2022 7.24 07/11/2021 6.08 Glucose (mg/dL) Date Value 06/23/2022 103 07/11/2021 98 Potassium (mmol/L) Date Value 06/23/2022 5.0 07/11/2021 5.0 Sodium (mmol/L) Date Value 06/23/2022 135 07/11/2021 137 Chloride (mmol/L) Date Value 06/23/2022 102 07/11/2021 105 CO2 (mmol/L) Date Value 06/23/2022 27 07/11/2021 27 Creatinine (mg/dL) Date Value 06/23/2022 1.35 07/11/2021 1.08 BUN (mg/dL) Date Value 06/23/2022 28 07/11/2021 19 Anion Gap (mmol/L) Date Value 06/23/2022 6 07/11/2021 5 Calcium (mg/dL) Date Value 07/11/2021 9.7 Calcium, Total (mg/dL) Date Value 06/23/2022 9.2 Albumin (g/dL) Date Value 06/23/2022 3.1 (L) Bilirubin, Total (mg/dL) Date Value 06/23/2022 2.7 (H) Bilirubin, Conjugated (mg/dL) Date Value 06/23/2022 0.9 (H) Alkaline Phosphatase (U/L) Date Value 06/23/2022 116 (H) AST (U/L) Date Value 06/23/2022 93 (H) ALT (U/L) Date Value 06/23/2022 50 Protein, Total (g/dL) Date Value 06/23/2022 5.7 (L) MELD-Na score: 17 at 06/23/2022 12:45 PM MELD score: 15 at 06/23/2022 12:45 PM Calculated from: Serum Creatinine: 1.35 mg/dL at 06/23/2022 12:45 PM Serum Sodium: 135 mmol/L at 06/23/2022 12:45 PM Total Bilirubin: 2.7 mg/dL at 06/23/2022 12:45 PM INR(ratio): 1.2 at 06/23/2022 12:45 PM Age: 72 years Assessment IMPRESSION 72M with PMH DURANT Cirrhosis c/b pHTN, PVT, G2EV (last EGD 12/2021- on coreg 6.25 mg BID), PHG, ascites (para x3-last 07/11, on lasix 20/patrick 50), HHT (thora x2- last 06/22/22), unconjugated hyperbilirubinemia, CKD3a presents for follow up. Remainder of past medical history is significant for: -h/o hyperlipidemia, dx'ed ~ 6 yrs -h/o hypertension, diagnosed ~ 5 -6 yrs -h/o glucose intolerance -h/o coronary artery disease / [place] -s/p PCI to LAD / Cx 2017 done at [place] [facility] -> on plavix x 3 yrs -h/o obesity; max weight ~ 220 (~ current); prev eval by dance coach in [place] -h/o obstructive sleep apnea - on CPAP x ~ 1 yr -h/o colon polyps 01/2017; last colonoscopy 12/2019 w no polyps -h/o tobacco abuse: ~ 19-> cigars intermittently-> 67 -h/o BPH -h/o hematuria -s/p CT urogram, f/b cystoscopy 10/12/2020 -h/o CKD, stage 3 -s/p robotic assisted laparoscopic suprapubic prostatectomy, umbilical hernia repair 08/08/2021 -told hernia repair did not hold, and would need Mesh for repair MELD-Na score: 17 at 06/23/2022 12:45 PM MELD score: 15 at 06/23/2022 12:45 PM Calculated from: Serum Creatinine: 1.35 mg/dL at 06/23/2022 12:45 PM Serum Sodium: 135 mmol/L at 06/23/2022 12:45 PM Total Bilirubin: 2.7 mg/dL at 06/23/2022 12:45 PM INR(ratio): 1.2 at 06/23/2022 12:45 PM Age: 72 years PLAN - EV screen: last EGD 01/06/2022-G2EV middle third, G1EV lower third; Can continue 3.125/6.25 mg coreg - Ascites/HHT: - TIPS planned 08/07/22; plan for CT liver this ; continue lasix 20/spironolactone 50- repeat bmp in a week and then consider stopping aldactone; PRN para and thora - Given plans for TIPS and MeldNa 17, can consider partial liver transplant evaluation - Needs hepatitis B vaccination- planned for end of this month - HCC screen: repeat RUQ q6m Jersey Bain MD GI/Hep Fellow documented in this encounterK[facility]02-06-2023 Instructions* Patient Instructions* Yane Miller APRN.CNP - 07/17/2022 11:20 AM EST Thank you for your time today, please plan on the following: -Repeat CT prior to procedure. Based on results we will schedule -TIPs procedure with CANDICE -PAC/ IMPACT -AC: No -Labs: T/S, CBC, CMP, Coags. -Para/Thora 1 day prior -Admit to Hepatology following TIPS procedure -Order LVUS 5-7 days post-op to establish baseline velocities Yane Miller APRN.EMISSIONS TECHNICIAN Contact Information: If you have questions regarding scheduling please call [phone] select option 1 If you have questions regarding your upcoming procedure or would like to speak to an InterventionalRadiology Nurse please call [phone] If you need to reach Imaging Physicians/Advanced Practice Providers please call [phone] If you are involved with liver directed therapy and have questions or concerns pre or post procedure please contact our liver coordinator at [phone] How to upload non-[facility] images Please use this link to upload your non-[facility] images to a secure [facility] website. This avoids you having to mail the CD. Please notify the provider/service once the images have been uploaded to review in a timely fashion. There are [id number] instructions once you access the following link: [email or web address] documented in this encounterK[facility]02-06-2023 Nurse Note* Manju Green RN - 07/17/2022 10:12 AM EST Nurse intake Pre-visit questions Check off list Chief complaint confirmed and entered into [employer]: Yes Medication list reviewed and updated: Yes Pharmacy confirmed: Yes Allergies reviewed and updated: Yes Past medical and surgical history reviewed and updated: Yes Patient reminded to prepare to show any areas of concern pertinent to visit: Yes Reason for visit: TIPS consult Visit type: In-person PACC: In-person required Pre-visit conducted by: Manju Green RN July 17, 2022 10:12 AM documented in this encounterK[facility]02-06-2023 History and physical note * Manju Green RN - 07/17/2022 10:00 AM EST Images from the original note were not included. INTERVENTIONAL RADIOLOGY SERVICE CONSULT NOTE SERVICE DATE: 07/17/22 SERVICE TIME: 999 PRIMARY CARE PHYSICIAN: Willem Madsen MD Consultation requested by Dr. Tevin De La Cruz for an opinion regarding TIPS. Final recommendations will be communicated back to the requesting physician by way of shared Medical record or letter to requesting physician via US mail. HPI: Jesus Sosa is a 72 year old male who presents with end stage liver disease secondary toNASH c/b ascites and esophageal varices secondary to portal hypertension. The patient was first diagnosed with cirrhosis in ~2017. Complications of Cirrhosis: Ascites: Yes Usual paracentesis schedule Yes, PRN ~3X total SBP:No Non-bleeding varices: Yes Variceal hemorrage: No Varices managed by beta blockers and banding. Yes Portosystemic encephalopathy: No Hepatorenal Syndrome:No Hepatopulmonary Syndrome: No Hepatic hydrothorax: No Recurrent Cholangitis (PSC): No Early satiety Yes Abdominal discomfort/sx Yes Jaundice itching No The patient is referred to Interventional Radiology for evaluation regarding a TIPS procedure as a treatment for portal hypertension. Contraindications to TIPS: Absolute Severe or rapidly progressive liver failure: No Severe or uncontrolled encephalopathy: No Heart Failure: No Relative Biliary obstruction: No Hepatic or pancreatic malignancy: No Portal system thrombosis (portal, splenic, mesenteric): No Inferior Vena caval or hepatic vein thrombosis: No Polycystic Liver Disease: No HISTORY REVIEWED (electronic chart updated): PAST MEDICAL HISTORY Diagnosis Date Abnormal LFTs (liver function tests) 06/27/2013 F[facility]U [facility] Arthritis Asthma Bladder neck obstruction 05/26/2009 BPH with obstruction/lower urinary tract symptoms Cancer (HCC) Chronic prostatitis 05/26/2009 Coronary artery disease Elevated prostate specific antigen (PSA) 07/19/2007 Esophageal reflux 1999 admitted for chest pain Essential hypertension 04/02/2009 Hepatic fibrosis (HCC) on elastography 02/09/2018 Dr. Kelby Suarez. 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 PMH - PAST MEDICAL HISTORY OF 1998 shingles without rash RBBB (right bundle branch block) 03/30/2009 Snoring Stented coronary artery 07/18/2017 MICHELLE to diagonal and mid LAD. Tubular adenoma of colon 02/08/2017 Umbilical hernia 01/08/2014 Unspecified essential hypertension 04/02/2009 PAST SURGICAL HISTORY Procedure Laterality Date CC CORONARY STENT 07/18/2017 MICHELLE x 2 to mild LAD and diagonal COLONOSCOPY FLX DX W/COLLJ SPEC WHEN PFRMD 02/08/2017 Colonoscopy COLONOSCOPY FLX DX W/COLLJ SPEC WHEN PFRMD 01/07/2020 Colonoscopy CYSTOSCOPY 10/12/2020 EGD 02/01/2021 EGD 01/05/2022 ESOPHAGOGASTRODUODENOSCOPY TRANSORAL DIAGNOSTIC 01/07/2020 EGD PARACENTESIS PROSTATE NEEDLE BIOPSY 05/19/2009 PROSTATE NEEDLE BIOPSY 01/02/2013 PROSTATECTOMY SUPRAPUBIC SUBTOTAL 1/2 STAGES 08/08/2021 + Umbilical hernia repair REMV CATARACT EXTRACAP,INSERT LENS 10/18/2020 10/04/20, 10/18/20 FAMILY HISTORY Problem Relation Age of Onset Arthritis Mother Heart Mother Pacemaker Stroke Mother w/ bowel obstruction Cancer Mother skin Heart Father Pacemaker Cancer Father skin Lipids Brother Lipids Brother Social History Tobacco Use Smoking status: Former Types: Cigars Smokeless tobacco: Never Tobacco comments: Last cigar 07/17/2017 Substance Use Topics Alcohol use: Yes Alcohol/week: 5.0 standard drinks Types: 1 Glasses of Wine (5oz), 1 Mixed Drinks per week Comment: one drink or shot once weekly occassional glass of wine Drug use: No Current Outpatient Medications Medication Sig fenofibrate nanocrystallized (TRICOR) 48 mg tablet Take 1 tablet by mouth once daily. furosemide (LASIX) 20 mg tablet TAKE 1 TABLET BY MOUTH EVERY DAY spironolactone (ALDACTONE) 50 mg tablet TAKE 1 TABLET BY MOUTH EVERY DAY carvedilol (COREG) 3.125 mg tablet Take 2 tablets by mouth twice daily with meals. Cholecalciferol, Vitamin D3, (VITAMIN D-3) 50 mcg (2,000 unit) cap Take 1 capsule by mouth once daily. acetaminophen (TYLENOL) 325 mg tablet Take 2 tablets by mouth every 4 hours as needed for pain. alirocumab (PRALUENT PEN) 150 mg/mL Inject 150 mg subcutaneously every 2 weeks. Per cabbage salter.inplace of statin aspirin(ECOTRIN LOW STRENGTH 81 MG TAB) Take one(1) tablet daily. Current Facility-Administered Medications Medication Dose Route Frequency perflutren lipid microspheres 1.3 mL in NaCl (PF) 0.9% 10 mL injection (DEFINITY) INTRAVENOUS DIRECTED PRN ALLERGIES Allergen Reactions Fcukzdr-Lpf-Rws Red* Itching REVIEW OF SYSTEMS: See HPI: Remaining ROS reviewed and negative unless otherwise noted in HPI. PHYSICAL EXAMINATION: There were no vitals taken for this visit. General appearance: Well appearing, alert, in no acute distress, well-hydrated, well nourished. Skin: Skin color, texture, turgor normal, no suspicious rashes or lesions Head: Normocephalic, no masses, lesions, tenderness or abnormalities Eyes: Anicteric sclera. Pupils are equally round and reactive to light. Extraocular movements are intact. Neck: Supple, no adenopathy; thyroid symmetric, normal size, no bruits Back: Normal exam Lungs: Lungs clear to auscultation. No wheezing, rhonchi, rales. Diminished lung sounds in the RLL with + egophony. Heart: RRR without murmur, gallop, or rubs. No ectopy Abdomen: Abdomen soft, non-tender. Bowel sounds normal. No masses, organomegaly. Slightly distended. Extremities: No deformities, skin discoloration, clubbing or cyanosis. Good capillary refill. , Edema: +1 BLE, PITTING. Musculoskeletal: No joint swelling, deformity, or tenderness Peripheral pulses: Normal Neuro: Gait normal. Reflexes normal and symmetric. Sensation grossly intact. DATA: LVUS: 06/27/2022 IMPRESSION: Thrombosis of the main portal vein. No biliary dilatation. Gallstones and sludge. US ABD 06/27/2022: HEPATIC VASCULATURE: PORTAL SYSTEM: -Splenic Vein: Patent with antegrade flow (towards the liver). -Main PV: Echogenic thrombus and no blood flow. No blood flow is detected within the right and left portal veins. Splenorenal shunt: Not visualized Recanalized paraumbilical vein: Visualized HEPATIC ARTERIES: - Main LIGHT: Normal waveform PSV: 101 cm/sec. RI: 0.70 - Right anterior LIGHT: Not visualized - Right posterior LIGHT: Not visualized - Left LIGHT: Normal waveform HEPATIC VEINS: -Left: Patent with triphasic waveform. -Middle: Patent with triphasic waveform. -Right: Patent with triphasic waveform. IVC: Patent with normal, phasic wave form. ECHO: 06/19/2022 CONCLUSIONS: - Exam indication: Shortness of Breath - The left ventricle is normal in size. Left ventricular systolic function is normal. EF = 61 5% (2D 4-ch.) Indeterminate left ventricular diastolic dysfunction. - The right ventricle is normal in size. Right ventricular systolic function is normal. - There is no patent foramen ovale as detected by Doppler and agitated saline contrast. - Agitated saline study was negative for an intracardiac shunting (clip 83). - The patient has not had a prior CC echocardiographic exam for comparison. Last EGD: 01/05/2022 Impression: - Grade I esophageal varices. - Severe Portal hypertensive gastropathy. - Small hiatal hernia. - No gross lesions in the entire examined duodenum. - No specimens collected. MELD-Na score: 17 at 06/23/2022 12:45 PM MELD score: 15 at 06/23/2022 12:45 PM Calculated from: Serum Creatinine: 1.35 mg/dL at 06/23/2022 12:45 PM Serum Sodium: 135 mmol/L at 06/23/2022 12:45 PM Total Bilirubin: 2.7 mg/dL at 06/23/2022 12:45 PM INR(ratio): 1.2 at 06/23/2022 12:45 PM Age: 72 years ASSESSMENT: Jesus Sosa is a 72 year old male who presents with end stage liver disease secondary to NASHc/b ascites and esophageal varices secondary to portal hypertension. Meld is 17. The patient is a TIPS candidate pending following testing and recommendations . was present and all information and imaging was reviewed -TIPs procedure with CANDICE -PACC/ IMPACT -AC: No -Labs: T/S, CBC, CMP, Coags. -Repeat CT prior to procedure -2D ECHO pre procedure Yes, 06/19/2022 -Para/Thora 1 day prior -Admit to Hepatology following TIPS procedure -Order LVUS 5-7 days post-op to establish baseline velocities IR procedure schedulers and coordinators will contact him regarding dates and times of pre procedure testing and consultations with PACC/ IMPACT clinic The risks, benefits, alternatives and personnel involved with the procedure were discussed in detail. There was opportunity for question and answer. I spent a total of 60 minutes on the date of the service which included preparing to see the patient, [id number] patient care, completing clinical documentation, performing a medically appropriate examination, counseling and educating the patient/family/caregiver, and ordering medications, tests,or procedures. SIGNATURE: Yane Miller APRN.CNP PATIENT NAME: Jesus Sosa DATE: July 17, 2022 TIME: 1100 PAGER: documented in this encounterK[facility]02-04-2023 History of Present illness Narrative* Willem Madsen MD - 07/15/2022 9:44 PM EST This note was created using Med[employer]. Subjective Jesus Sosa is a 72 year old male. He was doing reasonably well. He had paracentesis and thoracentesis to drain ascites and effusions. He was being considered for TIPS. He needed carvedilol refill short term. Review of Systems Constitutional: Negative. Respiratory: Negative. Cardiovascular: Negative. Gastrointestinal: Positive for abdominal distention. Neurological: Negative. ACTIVE PROBLEM LIST Mixed Hyperlipidemia Bph With Obstruction/Lower Urinary Tract Symptoms Essential Hypertension Impaired Fasting Glucose Stented Coronary Artery Tubular Adenoma of Colon Hepatic fibrosis (HCC) on elastography Coronary Arteriosclerosis in [place] Artery Obesity, Class I, Bmi 30-34.9 Ckd (Chronic Kidney Disease) Stage 3, Gfr 30-59 Ml/Min (Hcc) Vanessa (Obstructive Sleep Apnea) Umbilical Hernia Elevated Lfts Nonalcoholic Fatty Liver Disease Without Nonalcoholic Steatohepatitis (Durant) Vitamin D Deficiency Portal Hypertension With Esophageal Varices (Hcc) Liver Cirrhosis Secondary to Durant (Hcc) Bph Associated With Nocturia Diarrhea Current Outpatient Medications Medication Sig fenofibrate nanocrystallized (TRICOR) 48 mg tablet Take 1 tablet by mouth once daily. furosemide (LASIX) 20 mg tablet TAKE 1 TABLET BY MOUTH EVERY DAY spironolactone (ALDACTONE) 50 mg tablet TAKE 1 TABLET BY MOUTH EVERY DAY carvedilol (COREG) 3.125 mg tablet Take 2 tablets by mouth twice daily with meals. Cholecalciferol, Vitamin D3, (VITAMIN D-3) 50 mcg (2,000 unit) cap Take 1 capsule by mouth once daily. acetaminophen (TYLENOL) 325 mg tablet Take 2 tablets by mouth every 4 hours as needed for pain. alirocumab (PRALUENT PEN) 150 mg/mL Inject 150 mg subcutaneously every 2 weeks. Per cabbage salter.inplace of statin aspirin(ECOTRIN LOW STRENGTH 81 MG TAB) Take one(1) tablet daily. Current Facility-Administered Medications Medication Dose Route Frequency perflutren lipid microspheres 1.3 mL in NaCl (PF) 0.9% 10 mL injection (DEFINITY) INTRAVENOUS DIRECTED PRN Objective BP 104/66 (BP Position: Sitting) Pulse 72 Temp 36.3 C (97.4 F) Wt 82.1 kg (181 lb) BMI 27.52 kg/m Physical Exam Constitutional: General: He is not in acute distress. Eyes: Conjunctiva/sclera: Conjunctivae normal. Pulmonary: Effort: No respiratory distress. Breath sounds: Examination of the right-lower field reveals decreased breath sounds. Decreased breath sounds present. Abdominal: General: There is distension. Musculoskeletal: Right lower leg: Edema present. Left lower leg: Edema present. Neurological: General: No focal deficit present. Mental Status: He is alert. Gait: Gait normal. Assessment and Plan 1. Coronary arteriosclerosis in [place] artery - ICD9: 414.01, ICD10: I25.10 (primary diagnosis) - CARVEDILOL 3.125 MG TABLET. Dose needed clarification. [facility] is Take one(1) tablet three times daily. 2. Essential hypertension - ICD9: 401.9, ICD10: I10 - good control - CARVEDILOL 3.125 MG TABLET 3. Portal hypertension with esophageal varices (HCC) - ICD9: 572.3, 456.21, ICD10: K76.6, I85.00 Dose increased by hepatology to 2 tablets BID. I think this needs to be followed. Patient probably mixed up the 2 prescriptions and started taking this 2 tablets TID. I messaged him to take 2 tabletsBID. - CARVEDILOL 3.125 MG TABLET 4. Mixed hyperlipidemia - ICD9: 272.2, ICD10: E78.2 - to be determined upon return of lab results - Continue current medication. - LIPID PANEL BASIC 5. Impaired fasting glucose - ICD9: 790.21, ICD10: R73.01 Monitored. - BASIC METABOLIC PNL - HGB A1C Willem Madsen MD documented in this encounterK[facility]02-02-2023 Miscellaneous Notes* Telephone Encounter - Manju Clark - 07/13/2022 2:34 PM EST Called Jesus Sosa to remind them of an appointment with Dr. De La Cruz on 07/17/22. Spoke with patient. Appointment confirmed. documented in this encounterKet[facility] Health01-21-2023 Miscellaneous Notes* Telephone Encounter - Tevin De La Cruz MD - 07/01/2022 9:57 PM EST Hiram I don't think he has had a followup paracentesis since the last one (when he presumably had a contaminant grow out) I think he is set up for a followup para this week Can you please call, and let him know: -he will need cultures and counts done (if he can't get it done here, then will need to let the staff know at [place]) Thanks documented in this encounterKettering Health01-18-2023 History of Present illness Narrative* Florence Baez RN - 06/28/2022 1:03 PM EST in[facility] CDM Engagement Provider Action/FYI: Spoke with patient and at this time he is very busy with provider appointments due to his health issues he is [facility] He would prefer to convert to monthly telephonic outreaches at this time. Contact Made with Patient: Yes Patient identified by name and . Discussed care with patient Levy machado name is Florence Baez RN your Marketing Project Manager from Willem Madsen MD office at the [facility]. I am reaching out today because I noticed it has been a few weeks since I have seen any responses from you on your questionnaire. I wanted to check on you and make sure you are doing well, and to remind you that your Willem Madsen MD recommended this program for you so that you can stay better connected to your health. I will be monitoring your responses on the questionnaire to make sure we are not seeing any changes in your health that your Primary Care Physician needs to know about, or looking for improvements and keeping Willem Madsen MD informed about it all. You and I will check in together anytime a problem arises, and determine a solution. I am here tohelp you stay healthy, and stay connected to your doctor's office. How can I help you in this program? The patient informs that he forgot. Please take some time today to answer the questionnaire. I am looking forward to receiving your answers. If I do not receive your answers in the next 2 business days I will check back in. NILSON Education Ordered -: No --END CALL documented in this encounterKettering Health01-16-2023 Miscellaneous Notes* Telephone Encounter - Dee Pardo RN - 06/26/2022 11:43 AM EST Called patient regarding Dr Cash message regarding patient and asked him how he was feeling. He had a positive culture. Patients states he had a good weekend and feels fine. No fever, chills or shortness of breath. Told him to call if he stats feeling ill. Dee Pardo RN June 26, 2022 11:45 AM documented in this encounterKettering Health01-13-2023 History of Present illness Narrative* Tevin De La Cruz MD - 06/23/2022 8:23 AM EST 72 yo man h/o end stage liver disease secondary to DURANT, seen last virtually 03/24/22 Remainder of past medical history is significant for: -h/o hyperlipidemia, dx'ed ~ 6 yrs -h/o hypertension, diagnosed ~ 5 -6 yrs -h/o glucose intolerance -h/o coronary artery disease / [place] -s/p PCI to LAD / Cx 2018 done at [place] [facility] -> on plavix x 3 yrs -h/o obesity; max weight ~ 220 (~ current); prev eval by dance coach in [place] -h/o obstructive sleep apnea - on CPAP x ~ 1 yr -h/o colon polyps 01/2017; last colonoscopy 12/2019 w no polyps -h/o tobacco abuse: ~ 19-> cigars intermittently-> 67 -h/o BPH -h/o hematuria -s/p CT urogram, f/b cystoscopy 10/12/2020 -h/o CKD, stage 3 -s/p robotic assisted laparoscopic suprapubic prostatectomy, umbilical hernia repair 08/08/2021 -told hernia repair did not hold, and would need Mesh for repair Liver disease has been complicated by: -portal hypertension -CKD -gr I EV found on index endoscopy 01/07/20 -Stage 3a chronic kidney disease Since last seen At the time last seen, had increased diuretics, w drop in weight from ~ 200 (05/25) -> 191.6# (05/29) -developed SOB, SOBOE over the holidays -> seen in ER 06/14/22 and noted to be hypoxemic w pulse ox 88% -> on 6L CXR IMPRESSION: Lines, tubes, and devices: None. Lungs and pleura: Moderate to large right pleural effusion with associated parenchymal consolidation, greater than previous. Trace left pleural effusion with mild left base consolidation. No pneumothorax. Cardiomediastinal silhouette: No definite acute abnormality -s/p thoracentesis done 06/14 x 2L, along w para x 3L -> w no further SOB -weight subsequently crept up w concomitant SOB -s/p repeat thoracentesis done 06/22 x 3600 mL -s/p bubble echo done 06/19/22 CONCLUSIONS: - Exam indication: Shortness of Breath - The left ventricle is normal in size. Left ventricular systolic function is normal. EF = 61 5% (2D 4-ch.) Indeterminate left ventricular diastolic dysfunction. - The right ventricle is normal in size. Right ventricular systolic function is normal. - There is no patent foramen ovale as detected by Doppler and agitated saline contrast. - Agitated saline study was negative for an intracardiac shunting (clip 83). - The patient has not had a prior CC echocardiographic exam for comparison. -last EGd done 01/05/2022 w Grade I esophageal varices, and severe portal hypertensive gastropathy. Current Outpatient Medications Medication Sig fenofibrate nanocrystallized (TRICOR) 48 mg tablet Take 1 tablet by mouth once daily. furosemide (LASIX) 20 mg tablet TAKE 1 TABLET BY MOUTH EVERY DAY spironolactone (ALDACTONE) 50 mg tablet TAKE 1 TABLET BY MOUTH EVERY DAY carvedilol (COREG) 3.125 mg tablet Take 2 tablets by mouth twice daily with meals. Cholecalciferol, Vitamin D3, (VITAMIN D-3) 50 mcg (2,000 unit) cap Take 1 capsule by mouth once daily. acetaminophen (TYLENOL) 325 mg tablet Take 2 tablets by mouth every 4 hours as needed for pain. alirocumab (PRALUENT PEN) 150 mg/mL Inject 150 mg subcutaneously every 2 weeks. Per cabbage salter.inplace of statin aspirin(ECOTRIN LOW STRENGTH 81 MG TAB) Take one(1) tablet daily. Current Facility-Administered Medications Medication Dose Route Frequency perflutren lipid microspheres 1.3 mL in NaCl (PF) 0.9% 10 mL injection ([employer]) INTRAVENOUS DIRECTED PRN O/E BP (!) 106/49 (BP Site: Left Arm, BP Position: Sitting, BP Cuff Size: Large Adult) Pulse 65 Temp 36.4 C (97.6 F) (Temporal) Ht 172.7 cm (5' 8) Wt 81.4 kg (179 lb 6.4 oz) SpO2 92% BMI 27.28 kg/m skin: w+d HEENT: nc/at Chest: decr BS post on R to 06/14 CVS: rrr Abd: soft, nt, nd. + umbil hernia (reduced), vent hernia, + flank fullness, w dullness in flanks; no masses, no palp hsm Ext: no c/c/trace pitting e bilat to ankles A/p 72 yo man with ESLD secondary to DURANT (diagnosed on imaging), in context of multiple risk factors for the metabolic syndrome (hypertension, hypertriglyceridemia, glucose intolerance, girth) Course has been c/b portal Htn, EV /severe PHG on last endoscopy, ascites, and more recently hepatic hydrothorax Now s/p paracentesis, as well as thoracentesis x 2 Begun on evaluation process for poss TIPs Long discussion regarding issues and implications PLAN: Suggested: 1. Fluid overload - Large-volume paracentesis prn - 2 g sodium diet - Daily weights - Continue current diuretics -liver vasc dopplers to decide on candidacy for TIPs 2. Portal Hypertension -Continue on current carvedilol dose 3.125/6.25, following heart rate, blood pressure -Repeat EGD +/- EVL ~12/2022 - but will depend on whether undergoes TIPs or not 3. Cirrhosis Last MELD borderline to consider OLT (but driven in part by unconjugated hyperbilirubinemia); if increasing, low threshold to begin eval (partic if likely to require TIPs) -Repeat imaging scheduled - Repeat labs to recheck MELD score with next blood draw -FibroScan annually -recheck hepatitis B serologies post heplisav 4. hydrothorax - paracentesis as needed, and planning on scheduling thora if develops SOB, directly w pleural service No contraindication to TIPs (pending us dopplers); scheduled to see IR 07/17 Follow-up on the phone RTC ~4 months MELD-Na score: 15 at 06/06/2022 11:36 AM MELD score: 15 at 06/06/2022 11:36 AM Calculated from: Serum Creatinine: 1.29 mg/dL at 06/06/2022 11:36 AM Serum Sodium: 139 mmol/L (Using max of 137 mmol/L) at 06/06/2022 11:36 AM Total Bilirubin: 2.7 mg/dL at 06/06/2022 11:36 AM INR(ratio): 1.2 at 06/06/2022 11:36 AM Age: 72 years [facility] History of Present illness Narrative* Elvira Sheldon RN - 06/19/2022 1:09 PM EST 24 ga angio started to RFA. Good blood return. Flushed easily with NSS. Dressing applied. Agitated saline mixed per protocol. 20 cc administered throughout procedure. 0 cc discarded. Pt tolerated procedure well. No C/o's, Hep lock D/c'd and dressing applied. Patient discharged ambulatory with Sanding Machine Operator. Elvira Sheldon RN documented in this encounterK[facility]2023 Miscellaneous Notes* Telephone Encounter - Jayne Cohen - 06/19/2022 10:43 AM EST Spoke with patient scheduled thoracentesis for 06/22 * Telephone Encounter - Jayne Cohen - 06/19/2022 10:02 AM EST Called patient's and spouse's phone. No answer, left voicemail on both phones documented in this encounterK[facility]12-22-2022 History of Present illness Narrative* Quan Tafoya Jr., MD - 06/01/2022 2:14 PM EST ESTABLISHED PATIENT OFFICE VISIT HPI Jesus Ssoa is a 72 year old male who presents 3 days sp rasp. Doing ok. Drain removed. Catheter dark red. Irrigated moderate clots to pink. Not drinking much water. Path discussed - benign. 08/15/21 - 1 week sp rasp. Catheter draining well. Continue drainage from FANTASMA site. However has cirrhosis. Reassured 08/24/21 - 2.5week s/p RASP, catheter draining well, FANTSAMA site drainage has stopped since he laid on that site and let it all drain out; having some discomfort at the meatus from the de oliveira. Has been ambulating, tolerating PO without N/V. Wants to know when to get back to stationary bike 11/24/21 - 3 months sp rasp. Doing much better. 1 pad/ day. Discussed timed voiding and kegel exercises. psa 0.37. incontinence is urge. Minimal stress. 06/01/22 - doing well since last seen. No federico. Occasional mild UI but only when holds urine too long. No uti. No fever. Feels well otherwise. Not currently taking any bladder or prostate meds. LAB: Creatinine Date Value Ref Range Status 05/25/2022 1.27 (H) 0.73 - 1.22 mg/dL Final PSA (ng/mL) Date Value 11/08/2021 0.37 06/22/2020 1.48 01/14/2020 2.74 01/08/2019 1.79 02/08/2018 2.51 12/29/2016 2.19 08/17/2016 2.29 01/20/2016 2.97 02/09/2015 2.66 01/01/2014 3.37 12/09/2012 5.85 Glucose, Urine Date Value 09/30/2021 Negative 01/05/2016 Negative mg/dL Bilirubin, Urine (no units) Date Value 09/30/2021 Negative 01/05/2016 Negative Ketones, Urine (no units) Date Value 09/30/2021 Negative 01/05/2016 Negative Specific [place], Ur (no units) Date Value 09/30/2021 1.020 01/05/2016 1.021 Hemoglobin/Blood,Ur Date Value 09/30/2021 3+ 01/05/2016 Negative pH, Urine (no units) Date Value 09/30/2021 6.0 01/05/2016 5.0 Protein, Urine Date Value 09/30/2021 Comment: Visible blood causes falsely elevated results for analyte Protein. Due to this limitation, Protein will not be reported for patients whose urine contains visible blood. 01/05/2016 Negative mg/dL Urobilinogen, Urine (EU) Date Value 12/18/2011 0.2 Nitrites (no units) Date Value 09/30/2021 Negative 01/05/2016 Negative Leukocytes (no units) Date Value 12/18/2011 neg WBC, Urine Date Value 09/30/2021 >25 /HPF 01/05/2016 0-5 /HPF Color/Appearance (comment:) Date Value 12/18/2011 yellow/clear MEDICATIONS: fenofibrate nanocrystallized (TRICOR) 48 mg tablet^Take 1 tablet by mouth once daily.^Disp: 90 tablet^Rfl: 3 furosemide (LASIX) 20 mg tablet^TAKE 1 TABLET BY MOUTH EVERY DAY^Disp: 90 tablet^Rfl: 2 spironolactone (ALDACTONE) 50 mg tablet^TAKE 1 TABLET BY MOUTH EVERY DAY^Disp: 90 tablet^Rfl: 2 carvedilol (COREG) 3.125 mg tablet^Take 2 tablets by mouth twice daily with meals.^Disp: 360 tablet^Rfl: 3 Cholecalciferol, Vitamin D3, (VITAMIN D-3) 50 mcg (2,000 unit) cap^Take 1 capsule by mouth once daily.^Disp: ^Rfl: acetaminophen (TYLENOL) 325 mg tablet^Take 2 tablets by mouth every 4 hours as needed for pain.^Disp: 12 tablet^Rfl: 0 alirocumab (PRALUENT PEN) 150 mg/mL^Inject 150 mg subcutaneously every 2 weeks. Per cabbage salter.inplace of statin ^Disp: ^Rfl: aspirin(ECOTRIN LOW STRENGTH 81 MG TAB)^Take one(1) tablet daily.^Disp: ^Rfl: 0 REVIEW OF SYSTEMS Review of Systems Constitutional: Negative. Respiratory: Negative. Cardiovascular: Negative. Gastrointestinal: Negative. Genitourinary: Negative. Skin: Negative. Neurological: Negative. Psychiatric/Behavioral: Negative. HISTORIES PAST MEDICAL HISTORY Diagnosis Date Abnormal LFTs (liver function tests) 06/27/2013 F/U [facility] Arthritis Asthma Bladder neck obstruction 05/26/2009 BPH with obstruction/lower urinary tract symptoms Cancer (HCC) Chronic prostatitis 05/26/2009 Coronary artery disease Elevated prostate specific antigen (PSA) 07/19/2007 Esophageal reflux 1999 admitted for chest pain Essential hypertension 04/02/2009 Hepatic fibrosis (HCC) on elastography 02/09/2018 Dr. Kelby Suarez. 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 PMH - PAST MEDICAL HISTORY OF 1998 shingles without rash RBBB (right bundle branch block) 03/30/2009 Snoring Stented coronary artery 07/18/2017 MICHELLE to diagonal and mid LAD. Tubular adenoma of colon 02/08/2017 Umbilical hernia 01/08/2014 Unspecified essential hypertension 04/02/2009 FAMILY HISTORY Problem Relation Age of Onset Arthritis Mother Heart Mother Pacemaker Stroke Mother w/ bowel obstruction Cancer Mother skin Heart Father Pacemaker Cancer Father skin Lipids Brother Lipids Brother SOCIAL HISTORY Social History Tobacco Use Smoking status: Former Types: Cigars Smokeless tobacco: Never Tobacco comments: Last cigar 07/17/2017 Substance Use Topics Alcohol use: Yes Alcohol/week: 5.0 standard drinks Types: 1 Glasses of Wine (5oz), 1 Mixed Drinks per week Comment: one drink or shot once weekly occassional glass of wine Drug use: No PHYSICAL EXAMINATION General appearance: Well appearing, alert, in no acute distress, and well- hydrated, well nourished Skin: Skin color, texture, turgor normal, no suspicious rashes or lesions Respiratory:+ effort Cardiovascular: Not examined GI: Normal abdominal exam, Abdomen soft, non-tender. No masses, organomegaly Musculoskeletal: Negative Neuro: Negative Genitourinary: not examined Impression: (N40.1, N13.8) BPH with obstruction/lower urinary tract symptoms (primary encounter diagnosis) Plan: carleen Tafoya Jr, MD 06/01/2022 documented in this encounterK[facility]12-19-2022 Miscellaneous Notes* Telephone Encounter - Ananya Casiano RN - 05/29/2022 1:51 PM EST Images from the original note were not included. FYI..................... Dr. Weir, The patient sent the following update: Jesus Sosa [facility] (supporting Tevin De La Cruz MD) 3 hours ago (9:52 AM) Yecenia could you please call me @ [phone] concerning my update. My weights since 2x my diuretics are as follows 05/25 200 start 2x 05/26 196.8 05/27 194.4 05/28 192.4 05/29 191.6 Breathing is a little better during walking; however, when lying down in be it is worse. The CPAP helps. Sunday out in the cold walking was very short of breath. I spoke to the patient and advised him to avoid laying flat to help with his breathing. He is now using a wedge and his CPAP, so his breathing is about the same, it is not getting worse. He has returned to taking his diuretics daily since yesterday. Thanks, Yecenia documented in this encounterK[facility]12-14-2022 Miscellaneous Notes* Telephone Encounter - Ananya Casiano RN - 05/24/2022 8:29 AM EST Images from the original note were not included. Dr. De La Cruz, Can you please address this MyChart message? Thanks, Jesus Sandoval [facility] (supporting Tevin De La Cruz MD) 20 hours ago(11:36 AM) I'm sending this update to my medical condition. While my weights have remained pretty consistent between 200 and 203, I feel my abdomen is getting more distended while I continue to lose muscle massand body fat. The swelling in my legs has increased. I also have SOB with just the slightest of walking or exercise. I find that I'm also SOB while in bed unless I have my CPAP unit on. I had an appointment with my cabbage salter group yesterday and they felt that while my heart is doing ok, they were concerned about the amount of asities. They took x-rays and will be in contact with you concerningtheir findings. Thanks, Mango Sosa documented in this encounterK[facility] Health12-05-2022 Miscellaneous Notes* Telephone Encounter - Fawn Erickson LPN - 05/15/2022 3:27 PM EST Patient has been identified by name and date of : Yes Patient phones for refill(s): Requested Prescriptions Pending Prescriptions Disp Refills fenofibrate nanocrystallized (TRICOR) 48 mg tablet 90 tablet 3 Sig: Take 1 tablet by mouth once daily. Date of last office visit in primary care: 03/29/2022 6 month follow-up: 07/14/2022 Last 2 Encounter Wt Readings: Date: Wt: 03/30/2022 92.4 kg (203 lb 11.2 oz) 03/29/2022 97.5 kg (215 lb) Previous labs/tests for medication: Blood Pressure: BUN (mg/dL) Date Value 03/29/2022 22 07/11/2021 19 Sodium (mmol/L) Date Value 03/29/2022 139 07/11/2021 137 Last 1 Encounter BP Readings: Date: BP: 03/30/2022 134/73 Please advise. Thank you. Fawn Erickson LPN documented in this encounterK[facility]11-29-2022 History of Present illness Narrative* Aylin Candelaria LPN - 05/09/2022 10:38 AM EST Patient presents for Hepatitis B vaccine. Denies any problems at this time. Tolerated injection well. Aylin Candelaria LPN documented in this encounterK[facility]11-17-2022 Miscellaneous Notes* Telephone Encounter - Aylin Candelaria LPN - 04/27/2022 1:27 PM EST Patient scheduled for nurse visit 05/09/22 to receive Hepatitis B vaccine. Please place order at this time. Aylin Candelaria LPN documented in this encounterK[facility] Health11-08-2022 Miscellaneous Notes* Telephone Encounter - Tevin De La Cruz MD - 04/18/2022 5:40 PM EST Yecenia I don't know if we can get this set up for him -?standing orders Can you please remind him though about -2 gm Na diet -daily weights Please confirm how much diuretics he might be taking as well Thanks * Telephone Encounter - Ananya Casiano RN - 04/17/2022 8:[address] De La Cruz, Can you please sign para order? Thanks, Yecenia Paracentesis (Newest Message First) Jesus Sosa Mukesh [facility] (supporting Tevin De La Cruz MD) Yesterday (7:19 AM) JM I felt much better after my paracentesis but starting to feel much like I did before the drainage, shortness of breath, although not as bad yet, no appetite, general malaise. my weight has gone from 197.5 to right around 200. I know it has been just a little over two weeks but Is it possible to schedule another procedure for the [facility]? Thank you. 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 the fluid characteristics were consistent with portal Hypertension (ie, liver disease), with no evidence of infection or cancer, etc Thanks * Telephone Encounter - Ruba Archuleta - 04/03/2022 10:03 AM EDT Mango Sosa ([facility]) [phone] Patient called to discuss his most recent results, he would like a rt call. documented in this encounterKettering Health10-20-2022 Nurse Note* Juliet Chowdhury RN - 03/30/2022 9:44 AM EDT 7.5 liters of ascites fluid was removed via paracentesis. Orders received from Keri Collins CNP for IV placement and albumin infusion. A #24 Gauge angio cath was placed in the Left Hand. 50 grams of albumin was infused per protocol and the IV was discontinued post infusion. Juliet Chowdhury RN THE FOLLOWING WAS EVALUATED Motivation To Learn: Eager Family/Significant Other Support: Unable to assess - Family not present Cognitive Ability: Alert and oriented Patient Learns Best By: Verbal Instruction The Following Influencing Factors Were Barriers To This Education Session: None The Following Physical Limitations Were Barriers To This Education Session: None Instruction Provided To: Patient and family member Learning Topic: Procedure/Surgery: PARACENTESIS Patient Evaluation: Verbalizes understanding Follow Up Plan: Follow up as needed documented in this encounterK[facility] Health10-20-2022 Miscellaneous Notes* Sedation Documentation - Juliet Chowdhury RN - 03/30/2022 9:41 AM EDT Needle out/ 7.5L drained documented in this encounterKettering Health10-19-2022 History of Past illness Narrative* Problem Noted Date Diagnosed Date Resolved Date Diarrhea 03/29/2022 02/07/2023 BPH associated with nocturia 08/08/2021 09/15/2022 Elevated LFTs 02/10/2020 02/07/2023 Hepatic fibrosis (HCC) on elastography 02/09/2018 02/07/2023 Overview: Dr. Kelby Suarez. GI Abnormal result of iron profile testing 07/15/2017 01/11/2022 Overview: Dr.Vincent Suarez Occult GI bleeding 01/19/2017 8 Bladder mass 02/24/2016 07/07/2016 Rash 01/14/2015 04/17/2019 Abnormal LFTs (liver function tests) 06/27/2013 01/06/2021 Overview: Dr. Kelby Suarez, GI/hepatology. 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 Elevated prostate specific antigen (PSA) 07/19/2007 07/31/2017 documented as of this encounter (statuses as of 04/15/2023) [facility] History of Present illness Narrative* Tevin De La Cruz MD - 03/24/2022 4:45 PM EDT VIRTUAL VISIT PROGRESS NOTE This is a virtual visit using TraktoPROhart video visit. It required patient-provider interaction for themedical decision making as documented below. Jesus Sosa is a 72 year old male seen for followup of h/o end stage liver disease secondary to DURANT, seen last 11/29/21 Remainder of past medical history is significant for: -h/o hyperlipidemia, dx'ed ~ 6 yrs -h/o hypertension, diagnosed ~ 5 -6 yrs -h/o glucose intolerance -h/o coronary artery disease / [place] -s/p PCI to LAD / Cx 2017 done at [place] [facility] -> on plavix x 3 yrs -h/o obesity; max weight ~ 220 (~ current); prev eval by dance coach in [place] -h/o obstructive sleep apnea - on CPAP x ~ 1 yr -h/o colon polyps 01/2017; last colonoscopy 12/2019 w no polyps -h/o tobacco abuse: ~ 19-> cigars intermittently-> 67 -h/o BPH -h/o hematuria -s/p CT urogram, f/b cystoscopy 10/12/2020 -h/o CKD, stage 3 -s/p robotic assisted laparoscopic suprapubic prostatectomy, umbilical hernia repair 08/08/2021 -told hernia repair did not hold, and would need Mesh for repair Liver disease has been complicated by: -portal hypertension -CKD -gr I EV found on index endoscopy 01/07/20 -Stage 3a chronic kidney disease Since last seen -s/p EGd done 01/05/2022 Findings: The GEJ was located at approx 38 cm from the incisors. Esophageal varices were seen in the distal esophagus extending to mid esophagus (essentially absent above 30 cm from the incisors); they were Grade II in the middle third of the esophagus but grade I in the lower third of the esophagus. They were small in size, w/o stigmata - no banding performed. Changes c/w severe portal hypertensive gastropathy with a reticular mucosal pattern, and both subepithelial and intralumenal heme, were found in the cardia, in the gastric fundus and in the gastric body. A small hiatal hernia was present, but no evidence of gastric varices on retroflexion. No gross lesions were noted in the entire examined duodenum. Impression: - Grade I esophageal varices. - Severe Portal hypertensive gastropathy. - Small hiatal hernia. - No gross lesions in the entire examined duodenum. - No specimens collected. -having issues w SOB, even when sitting in chair -seen by FLEXOGRAPHIC PRESS HELPER in pulmonary dept at [facility] as part of followup w CPAP - told lungs clear andtesting for inflammation -clear phlegm but no real cough -weight creeping up - from 200- > 208, and feels like abdomen enlarging -appetite not great -has been having some watery diarrhea (like urinating out of the rectum) HISTORY REVIEWED (electronic chart updated): PAST MEDICAL HISTORY Diagnosis Date Abnormal LFTs (liver function tests) 06/27/2013 F/U [facility] Arthritis Asthma Bladder neck obstruction 05/26/2009 BPH with obstruction/lower urinary tract symptoms Cancer (HCC) Chronic prostatitis 05/26/2009 Coronary artery disease Elevated prostate specific antigen (PSA) 07/19/2007 Esophageal reflux 1999 admitted for chest pain Essential hypertension 04/02/2009 Hepatic fibrosis (HCC) on elastography 02/09/2018 Dr. Kelby Suarez. 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 PMH - PAST MEDICAL HISTORY OF 1998 shingles without rash RBBB (right bundle branch block) 03/30/2009 Snoring Stented coronary artery 07/18/2017 MICHELLE to diagonal and mid LAD. Tubular adenoma of colon 02/08/2017 Umbilical hernia 01/08/2014 Unspecified essential hypertension 04/02/2009 PAST SURGICAL HISTORY Procedure Laterality Date CC CORONARY STENT 07/18/2017 MICHELLE x 2 to mild LAD and diagonal COLONOSCOPY FLX DX W/COLLJ SPEC WHEN PFRMD 02/08/2017 Colonoscopy COLONOSCOPY FLX DX W/COLLJ SPEC WHEN PFRMD 01/07/2020 Colonoscopy CYSTOSCOPY 10/12/2020 EGD 02/01/2021 EGD 01/05/2022 ESOPHAGOGASTRODUODENOSCOPY TRANSORAL DIAGNOSTIC 01/07/2020 EGD PROSTATE NEEDLE BIOPSY 05/19/2009 PROSTATE NEEDLE BIOPSY 01/02/2013 PROSTATECTOMY SUPRAPUBIC SUBTOTAL 1/2 STAGES 08/08/2021 + Umbilical hernia repair REMV CATARACT EXTRACAP,INSERT LENS 10/18/2020 10/04/20, 10/18/20 FAMILY HISTORY Problem Relation Age of Onset Arthritis Mother Heart Mother Pacemaker Stroke Mother w/ bowel obstruction Cancer Mother skin Heart Father Pacemaker Cancer Father skin Lipids Brother Lipids Brother Social History Tobacco Use Smoking status: Former Types: Cigars Smokeless tobacco: Never Tobacco comments: Last cigar 07/17/2017 Substance Use Topics Alcohol use: Yes Alcohol/week: 5.0 standard drinks Types: 1 Glasses of Wine (5oz), 1 Mixed Drinks per week Comment: one drink or shot once weekly occassional glass of wine Drug use: No Current Outpatient Medications Medication Sig carvedilol (COREG) 3.125 mg tablet Take 2 tablets by mouth twice daily with meals. Cholecalciferol, Vitamin D3, (VITAMIN D-3) 50 mcg (2,000 unit) cap Take 1 capsule by mouth once daily. furosemide (LASIX) 20 mg tablet Take 1 tablet by mouth once daily. spironolactone (ALDACTONE) 50 mg tablet Take 1 tablet by mouth once daily. acetaminophen (TYLENOL) 325 mg tablet Take 2 tablets by mouth every 4 hours as needed for pain. fenofibrate nanocrystallized (TRICOR) 48 mg tablet Take 1 tablet by mouth once daily. alirocumab (PRALUENT PEN) 150 mg/mL Inject 150 mg subcutaneously every 2 weeks. Per cabbage salter.inplace of statin aspirin(ECOTRIN LOW STRENGTH 81 MG TAB) Take one(1) tablet daily. No current facility-administered medications for this visit. ALLERGIES Allergen Reactions Yymuiwd-Xjm-Sic Red* Itching REVIEW OF SYSTEMS: All other ROS: negative PHYSICAL EXAMINATION: VIDEO EXAM: (if completed, performed via video enabled technology) No exam performed ASSESSMENT: 72-year old man with a history of ESLD secondary to DURANT (diagnosed on imaging), in context of multiple risk factors for the metabolic syndrome (hypertension, hypertriglyceridemia, glucose intolerance, girth) Liver disease itself has been c/b portal Htn, EV /severe PHG on last endoscopy, weight has fluctuated over time ascites and lower extremity edema Weight has fluctuated over time, but not yet down by ~9-10% (although most recent weight may partially reflect ascites). Complains of abdominal distention and some shortness of breath; by report, lung exam clear Long discussion regarding issues and options for further work-up PLAN: Suggested: 1. Fluid overload - Large-volume paracentesis (he will call Sunday morning to schedule) - 2 g sodium diet - Daily weights - Continue current diuretics 2. Portal Hypertension -Continue on current carvedilol dose 3.125/6.25, following heart rate, blood pressure -Repeat EGD +/- EVL ~12/2022 3. Cirrhosis -Repeat imaging per protocol - Repeat labs to recheck MELD score with next blood draw -FibroScan annually -Heplisav vaccination series (negative hepatitis B serologies when last checked) 4. Shortness of breath - Chest x-ray - We will follow-up on the phone after paracentesis; if no better, low threshold for bubble echo (unfortunately, recent standard echo done-but no evidence of abnormality which would explain symptoms). Follow-up on the phone RTC ~4 months Tevin De La Cruz MD MELD-Na score: 13 at 12/23/2021 9:48 AM MELD score: 12 at 12/23/2021 9:48 AM Calculated from: Serum Creatinine: 1.20 mg/dL at 12/23/2021 9:48 AM Serum Sodium: 136 mmol/L at 12/23/2021 9:48 AM Total Bilirubin: 1.5 mg/dL at 12/23/2021 9:48 AM INR(ratio): 1.2 at 12/23/2021 9:48 AM Age: 71 years [facility] Miscellaneous Notes* Telephone Encounter - Willem Madsen MD - 03/23/2022 2:05 PM EDT Noted. I'll see him as scheduled. * Telephone Encounter - Brenda Mabry LPN - 03/22/2022 9:55 AM EDT Pt called to request an appt with pcp. Pt reports he has been having diarrhea since last month sometime. Pt states diarrhea is not as bad when he takes lasix. Pt states he has been eating more fruits& vegetables. Pt states he has lost some weight but states he thinks he has fluid built up in abdomen. States he had fluid in abd when he saw Dr De La Cruz (gastro). Pt does not see Dr De La Cruz again until Jul. Pt states he also has some shortness of breath but thinks it is from fluid in abd. Pt sees pulmonology tomorrow. Pt has appt scheduled with pcp form 03/29/22 to address diarrhea, pt wanted to wait for 1st avail with pcp. Please contact pt if pcp wants to direct him differently. Brenda Mabry LPN documented in this encounterK[facility]09-06-2022 Miscellaneous Notes* Telephone Encounter - Ananya Casiano RN - 02/14/2022 8:[address] De La Cruz, Can you please address this MyChart message? Thanks, Yecenia Since my dosage has changed (2 tablets morning and evening) I am running out of this drug and need to renew the prescription. However, the old prescription will not let me do that so I need a new prescription written for the correct dosage. It can be sent the the [facility] store at [address] [place]. Thanks for your attention to this request. Jesus Ian documented in this encounterK[facility]08-03-2022 History of Present illness Narrative* Willem Madsen MD - 01/11/2022 10:30 AM EDT This note was created using Medefyriter. Subjective Jesus Sosa is a 72 year old male. He was doing well. His conditions were stable. Medicationswere reconciled. He was instructed to increase carvedilol due to portal hypertension. Review of Systems Constitutional: Negative. Respiratory: Negative. Cardiovascular: Positive for leg swelling. Negative for chest pain and palpitations. Gastrointestinal: Negative. Genitourinary: Negative. Musculoskeletal: Negative. Neurological: Negative. 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 furosemide (LASIX) 20 mg tablet Take 1 tablet by mouth once daily. spironolactone (ALDACTONE) 50 mg tablet Take 1 tablet by mouth once daily. acetaminophen (TYLENOL) 325 mg tablet Take 2 tablets by mouth every 4 hours as needed for pain. fenofibrate nanocrystallized (TRICOR) 48 mg tablet Take 1 tablet by mouth once daily. alirocumab (PRALUENT PEN) 150 mg/mL Inject 150 mg subcutaneously every 2 weeks. Per cabbage salter.inplace of statin aspirin(ECOTRIN LOW STRENGTH 81 MG TAB) Take one(1) tablet daily. Cholecalciferol, Vitamin D3, (VITAMIN D-3) 50 mcg (2,000 unit) cap Take 1 capsule by mouth once daily. No current facility-administered medications for this visit. Objective BP 120/58 (BP Site: Left Arm, BP Position: Sitting, BP Cuff Size: Large Adult) Pulse (!) 52 Temp (!) 35.7 C (96.3 F) (Temporal Artery) Resp 12 Ht 172.7 cm (5' 8) Wt 94.8 kg (209 lb) BMI 31.78 kg/m Physical Exam Constitutional: General: He is not in acute distress. Cardiovascular: Rate and Rhythm: Regular rhythm. Bradycardia present. Heart sounds: No murmur heard. No gallop. Pulmonary: Breath sounds: Normal breath sounds. No wheezing or rales. Abdominal: General: There is distension. Palpations: Abdomen is soft. Tenderness: There is no abdominal tenderness. Hernia: A hernia is present. Hernia is present in the umbilical area. Musculoskeletal: Right lower le+ Pitting Edema present. Left lower le+ Pitting Edema present. Neurological: Mental Status: He is alert. Gait: Gait normal. Psychiatric: Mood and Affect: Mood normal. Assessment and Plan 1. Medicare annual wellness visit, subsequent - ICD9: V70.0, ICD10: Z00.00 (primary diagnosis) See wellness note. 2. Stage 3a chronic kidney disease (HCC) - ICD9: 585.3, ICD10: N18.31 Improved, more like stage II. 3. Mixed hyperlipidemia - ICD9: 272.2, ICD10: E78.2 - good control - Continue current medication. 4. Essential hypertension - ICD9: 401.9, ICD10: I10 - good control 5. Nonalcoholic fatty liver disease without nonalcoholic steatohepatitis (DURANT) - ICD9: 571.8, ICD10: K76.0 Per GI. 6. Need for COVID-19 vaccine - ICD9: V04.89, ICD10: Z23 - Access Closure-[place] [employer] COVID-19 VACCINE, AGE 12+ YR (RODRIGEZ TOP) Willem Madsen MD * Willem Madsen MD - 01/11/2022 10:16 AM EDT Medicare Yearly Visit Medical B eligibilty date 2011 Date of last exam 01/06/2021 PAST MEDICAL HISTORY Diagnosis Date Abnormal LFTs (liver function tests) 06/27/2013 F/U [facility] Arthritis Asthma Bladder neck obstruction 05/26/2009 BPH with obstruction/lower urinary tract symptoms Cancer (HCC) Chronic prostatitis 05/26/2009 Coronary artery disease Elevated prostate specific antigen (PSA) 07/19/2007 Esophageal reflux 1999 admitted for chest pain Essential hypertension 04/02/2009 Hepatic fibrosis (HCC) on elastography 02/09/2018 Dr. Kelby Suarez. 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 PMH - PAST MEDICAL HISTORY OF 1998 shingles without rash RBBB (right bundle branch block) 03/30/2009 Snoring Stented coronary artery 07/18/2017 MICHELLE to diagonal and mid LAD. Tubular adenoma of colon 02/08/2017 Umbilical hernia 01/08/2014 Unspecified essential hypertension 04/02/2009 PAST SURGICAL HISTORY Procedure Laterality Date CC CORONARY STENT 07/18/2017 MICHELLE x 2 to mild LAD and diagonal COLONOSCOPY FLX DX W/COLLJ SPEC WHEN PFRMD 02/08/2017 Colonoscopy COLONOSCOPY FLX DX W/COLLJ SPEC WHEN PFRMD 01/07/2020 Colonoscopy CYSTOSCOPY 10/12/2020 EGD 02/01/2021 EGD 01/05/2022 ESOPHAGOGASTRODUODENOSCOPY TRANSORAL DIAGNOSTIC 01/07/2020 EGD PROSTATE NEEDLE BIOPSY 05/19/2009 PROSTATE NEEDLE BIOPSY 01/02/2013 PROSTATECTOMY SUPRAPUBIC SUBTOTAL 1/2 STAGES 08/08/2021 + Umbilical hernia repair REMV CATARACT EXTRACAP,INSERT LENS 10/18/2020 10/04/20, 10/18/20 ALLERGIES: Rzkjjri-Kti-Dkk Reductase Inhibitors Medications reviewed: Yes FAMILY HISTORY Problem Relation Age of Onset Arthritis Mother Heart Mother Pacemaker Stroke Mother w/ bowel obstruction Cancer Mother skin Heart Father Pacemaker Cancer Father skin Lipids Brother Lipids Brother SOCIAL HISTORY: Social History Tobacco Use Smoking status: Former Smoker Years: 36.00 Types: Cigars Smokeless tobacco: Never Used Tobacco comment: Last cigar 07/17/2017 Substance Use Topics Alcohol use: Yes Alcohol/week: 5.0 standard drinks Types: 1 Glasses of Wine (5oz), 1 Mixed Drinks per week Comment: one drink or shot once weekly occassional glass of wine Drug use: No Jesus denies regular aerobic exercise. He watches his diet for sodium, low fat and low cholesterolmost of the time. List of current specialists seen: Dr. Matos, cardiology. Dr. Tafoya, urology. Dr. Briseida Weir, hepatology. Dr. Mckeon, optometry. Dr. Alba Payan, endocrinology. End of Live Planning discussed including patients advanced directive wishes: Yes I am willing to follow Jesus's advanced directives. PHQ-2 / Depression screen He in the past two weeks denies having felt down, depressed, hopeless or with little interest or pleasure in doing things. PHQ-2 Score: 0 Functional Ability/Safety Screen 1. Was the patient's timed Up and Go test unsteady or longer than 30 seconds? No 2. Does the patient need help with the phone, transportation, shopping,preparing meals, housework, laundry, medications or managing money? No 3. Does your home have rugs in the hallway, lack of grab bars in the bathroom, lack of handrails onthe stairs or have poor lighting? No Hearing Evaluation: wears hearing aids PHYSICAL EXAM BP 120/58 (BP Site: Left Arm, BP Position: Sitting, BP Cuff Size: Large Adult) Pulse (!) 52 Temp (!) 35.7 C (96.3 F) (Temporal Artery) Resp 12 Ht 172.7 cm (5' 8) Wt 94.8 kg (209 lb) BMI 31.78 kg/m Alert and oriented X 3: YES Body mass index is 31.78 kg/m . Visual acuity: OD: 20/25 OS: 20/ 25 OU: 20/20 The Mini Cog(c): Word recall=3/3 + Clock drawing=2/2=5/5. (<3 is positive). ASSESSMENT/PLAN: 72 year old male The following prevention plan was discussed during the office visit and provided to the patient: - Vaccines recommended COVID-19, Shingrix at pharmacy and Tdap at pharmacy - Counseling for Weight Loss and Exercise - Advanced Care Planning discussion. Willem Madsen MD documented in this encounterK[facility]08-03-2022 Instructions* Patient Instructions* Willem Madsen MD - 01/11/2022 10:28 AM EDT Recombinant shingles vaccine (Shingrix) is recommended; 2 doses 2-6 months apart. Please read information, check with your insurance, and schedule vaccination at your local pharmacy. A prescription is not required. If you are certain you have coverage to receive this vaccine in the office, we can schedule this for you. Tdap (tetanus booster) thru the pharmacy. documented in this encounterK[facility]08-03-2022 Evaluation note* Diagnosis Medicare annual wellness visit, subsequent- Primary Routine general medical examination at a [facility] care facility Stage 3a chronic kidney disease (HCC) Mixed hyperlipidemia Essential hypertension Unspecified essential hypertension Nonalcoholic fatty liver disease without nonalcoholic steatohepatitis (DURANT) Need for COVID-19 vaccine documented in this encounter [facility] Nurse Note* Tereza Soto LPN - 01/05/2022 2:11 PM EDT AMBULATORY PATIENT EDUCATION NOTE TOPIC: GI PROCEDURES: EGD READINESS TO LEARN INSTRUCTION PROVIDED TO: Patient and family member COGNITIVE ABILITY: Alert and oriented PTED MOTIVATION TO LEARN: Eager FAMILY SUPPORT: High - Very involved in pt care IPATIENT LEARNS BEST BY: Individual Instruction Written Instruction - Hand-outs Verbal Instruction FACTORS AFFECTING LEARNING: None PHYSICAL LIMITATIONS AFFECTING LEARNING: None LEARNING RESPONSE METHOD OF INSTRUCTION: Individual instruction PATIENT / FAMILY RESPONSE: Verbalizes understanding of: WORSENING CONDITION- Signs and symptoms of aworsening condition that warrant a call to the physician FOLLOW-UP PLAN: Patient instructed to call with any further issues SUPPLEMENTAL MATERIAL: Procedure Discharge Instructions REFERRAL (RECOMMENDATION): None Electronically Signed By: Tereza Mazariegos LPN * Claudia Hartman RN - 01/05/2022 12:39 PM EDT PRE OP LEARNING ASSESSMENT PROCEDURE/SURGERY: GI PROCEDURES: EGD READINESS TO LEARN COGNITIVE ABILITY: Alert and oriented MOTIVATION TO LEARN: Interested FAMILY SUPPORT: High - Very involved in pt care PATIENT LEARNS BEST BY: Individual Instruction FACTORS AFFECTING LEARNING: None PHYSICAL LIMITATIONS AFFECTING LEARNING: None Electronically Signed By: Claudia Hartman RN In Department: GASTROENTEROLOGY documented in this encounterK[facility] Health07-21-2022 Miscellaneous Notes* Telephone Encounter - Rosemary Wooten RN - 12/29/2021 11:59 AM EDT GI Pre-Procedure Spoke with patient: Yes Confirmed date scheduled and patient report time: Yes Procedure Planned:Esophagogastroduodenoscopy(EGD) with or without biopies based on clinical findings, removal of polyps or lesions Is the patient on blood thinners?no Procedure Instructions given to patient: Yes, and they verbalized their understanding of instructions given Patient instructed to take prescribed preparation prior to procedure:Yes, and they verbalized theirunderstanding of instructions given Patient instructed to have family/friend present for procedure transport 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 and They verbalized their understanding and agree to have a responsible adult accompany the patient to their procedure and remain in the endoscopy area. Any barriers to Patient learning: Patient/Patient Bureau Chief responded appropriately on phone. Type of instruction given: Verbal by telephone contact. Rosemary Wooten RN documented in this encounterK[facility] Health06-21-2022 History of Present illness Narrative* Tevin De La Cruz MD - 11/29/2021 11:38 AM EDT 71 yo man w h/o end stage liver disease secondary to DURANT, seen last 07/11/21 Remainder of past medical history is significant for: -h/o hyperlipidemia, dx'ed ~ 6 yrs -h/o hypertension, diagnosed ~ 5 -6 yrs -h/o glucose intolerance -h/o coronary artery disease / [place] -s/p PCI to LAD / Cx 2017 done at [place] [facility] -> on plavix x 3 yrs -h/o obesity; max weight ~ 220 (~ current); prev eval by dance coach in [place] -h/o obstructive sleep apnea - on CPAP x ~ 1 yr -h/o colon polyps 01/2017; last colonoscopy 12/2019 w no polyps -h/o tobacco abuse: ~ 19-> cigars intermittently-> 67 -h/o BPH -h/o hematuria -s/p CT urogram, f/b cystoscopy 10/12/2020 -h/o CKD, stage 3 Liver disease has been complicated by: portal hypertension CKD -gr I EV found on index endoscopy 01/07/20 Since last seen -s/p robotic assisted laparoscopic suprapubic prostatectomy, umbilical hernia repair 08/08/2021 -told hernia repair did not hold, and would need Mesh for repair -taking BP and HR most days - typically 100 - 120's, w HR 50 - 60s on carvedilol -adjusting diuretics based on LE edema -weight down ~ 10# decreased since starting diuretics -had been on the bike 3x/week before prostate surgery - but slacked off since -s/p liver dopplers done today IMPRESSION: SLOW BIDIRECTIONAL FLOW IN THE ANTERIOR RIGHT PORTAL VEIN AND LEFT PORTAL VEIN, OTHERWISE PATENT HEPATIC VASCULATURE WITH APPROPRIATELY DIRECTED FLOW. RECANALIZED UMBILICAL VEIN. CIRRHOTIC LIVER MORPHOLOGY. NO HEPATIC LESION. SPLENOMEGALY. LARGE VOLUME ASCITES. CHOLELITHIASIS AND POSSIBLE GALLBLADDER SLUDGE. NO BILIARY DILATATION. -no abdom pain despite large vent hernia -planning on trip [facility] Current Outpatient Medications Medication Sig acetaminophen (TYLENOL) 325 mg tablet Take 2 tablets by mouth every 4 hours as needed for pain. fenofibrate nanocrystallized (TRICOR) 48 mg tablet Take 1 tablet by mouth once daily. carvedilol (COREG) 3.125 mg tablet Take 1 tablet by mouth in morning, take 2 tablets in evening. cholecalciferol, vitamin D3, (VITAMIN D3 ORAL) Take 1 Dose by mouth twice daily. 2000mg in morning 1000 mg at night alirocumab (PRALUENT PEN) 150 mg/mL Inject 150 mg subcutaneously every 2 weeks. Per cabbage salter.inplace of statin aspirin(ECOTRIN LOW STRENGTH 81 MG TAB) Take one(1) tablet daily. furosemide (LASIX) 20 mg tablet Take 1 tablet by mouth once daily. spironolactone (ALDACTONE) 50 mg tablet Take 1 tablet by mouth once daily. docusate sodium (COLACE) 100 mg capsule Take 1 capsule by mouth twice daily as needed for constipation. (Patient not taking: Reported on 08/24/2021 ) No current facility-administered medications for this visit. O/E Looks Ok BP 127/54 (BP Site: Left Arm, BP Position: Sitting, BP Cuff Size: Regular Adult) Pulse (!) 53 Temp 36 C (96.8 F) (Temporal) Ht 174 cm (5' 8.5) Wt 94.8 kg (209 lb) SpO2 99% BMI 31.32 kg/m Body mass index is 31.32 kg/m . skin: w+d HEENT: nc/at Chest: clear to A+P CVS: rrr Abd: soft, nt, minimally distended, with flank fullness; prominent venous pattern across the intra-abdominal wall. no masses, large reducible umbil hernia, + palp spleen tip Ext: no c/c/2+ pittting bilaterally, extending ~mid hernandez A/p 71-year old man with a h/o ESLD secondry to DURANT (diagnosed on imaging), in context of multiple risk factors for the metabolic syndrome Liver disease has been c/b portal Htn, EV /severe PHG on last endoscopy, along with small volume ascites and lower extremity edema Previously, had been successful losing weight with exercise (biking 3 times weekly) and diet (paying attention still to carbs and salt), but had gotten worse after hernia/prostate surgery not not really exercising, and regained some weight Had tolerated surgery otherwise from a liver perspective, with no clinical decompensation; discussions ongoing regarding need/utility of repeat surgery with mesh repair of hernia Overall, clinically stable however Suggested: 1. Portal Hypertension Continue on current carvedilol dose 3.125/6.25, following heart rate, blood pressure Repeat EGD +/- EVL 2. DURANT: Discussed again the importance of weight loss and exercise regimen 3. Cirrhosis Repeat RUQ ultrasound q 6 months Labs to recheck MELD score with next blood draw Repeat FibroScan annually 4. Ascites/edema -2 gram sodium diet Compression stockings F/u on phone RTC ~ 6 mo Tevin De La Cruz MD documented in this encounterKettering Health06-17-2022 History of Present illness Narrative* Quan Tafoya Jr., MD - 11/25/2021 9:24 AM EDT ESTABLISHED PATIENT OFFICE VISIT HPI Jesus Sosa is a 71 year old male who presents 3 days sp rasp. Doing ok. Drain removed. Catheter dark red. Irrigated moderate clots to pink. Not drinking much water. Path discussed - benign. 08/15/21 - 1 week sp rasp. Catheter draining well. Continue drainage from FANTASMA site. However has cirrhosis. Reassured 08/24/21 - 2.5week s/p RASP, catheter draining well, FANTASMA site drainage has stopped since he laid on that site and let it all drain out; having some discomfort at the meatus from the de oliveira. Has been ambulating, tolerating PO without N/V. Wants to know when to get back to stationary bike 11/24/21 - 3 months sp rasp. Doing much better. 1 pad/ day. Discussed timed voiding and kegel exercises. psa 0.37. incontinence is urge. Minimal stress. LAB: Creatinine Date Value Ref Range Status 11/08/2021 1.12 0.73 - 1.22 mg/dL Final PSA (ng/mL) Date Value 11/08/2021 0.37 06/22/2020 1.48 01/14/2020 2.74 01/08/2019 1.79 02/08/2018 2.51 12/29/2016 2.19 08/17/2016 2.29 01/20/2016 2.97 02/09/2015 2.66 01/01/2014 3.37 12/09/2012 5.85 Glucose, Urine Date Value 09/30/2021 Negative 01/05/2016 Negative mg/dL Bilirubin, Urine (no units) Date Value 09/30/2021 Negative 01/05/2016 Negative Ketones, Urine (no units) Date Value 09/30/2021 Negative 01/05/2016 Negative Specific [place], Ur (no units) Date Value 09/30/2021 1.020 01/05/2016 1.021 Hemoglobin/Blood,Ur Date Value 09/30/2021 3+ 01/05/2016 Negative pH, Urine (no units) Date Value 09/30/2021 6.0 01/05/2016 5.0 Protein, Urine Date Value 09/30/2021 Comment: Visible blood causes falsely elevated results for analyte Protein. Due to this limitation, Protein will not be reported for patients whose urine contains visible blood. 01/05/2016 Negative mg/dL Urobilinogen, Urine (EU) Date Value 12/18/2011 0.2 Nitrites (no units) Date Value 09/30/2021 Negative 01/05/2016 Negative Leukocytes (no units) Date Value 12/18/2011 neg WBC, Urine Date Value 09/30/2021 >25 /HPF 01/05/2016 0-5 /HPF Color/Appearance (comment:) Date Value 12/18/2011 yellow/clear MEDICATIONS: acetaminophen (TYLENOL) 325 mg tablet Take 2 tablets by mouth every 4 hours as needed for pain. fenofibrate nanocrystallized (TRICOR) 48 mg tablet Take 1 tablet by mouth once daily. carvedilol (COREG) 3.125 mg tablet Take 1 tablet by mouth in morning, take 2 tablets in evening. cholecalciferol, vitamin D3, (VITAMIN D3 ORAL) Take 1 Dose by mouth twice daily. 2000mg in [id number] mg at night alirocumab (PRALUENT PEN) 150 mg/mL Inject 150 mg subcutaneously every 2 weeks. Per cabbage salter.inplace of statin aspirin(ECOTRIN LOW STRENGTH 81 MG TAB) Take one(1) tablet daily. furosemide (LASIX) 20 mg tablet Take 1 tablet by mouth once daily. spironolactone (ALDACTONE) 50 mg tablet Take 1 tablet by mouth once daily. docusate sodium (COLACE) 100 mg capsule Take 1 capsule by mouth twice daily as needed for constipation. REVIEW OF SYSTEMS Review of Systems Constitutional: Negative. Respiratory: Negative. Cardiovascular: Negative. Gastrointestinal: Negative. Genitourinary: Negative. Skin: Negative. Neurological: Negative. Psychiatric/Behavioral: Negative. HISTORIES PAST MEDICAL HISTORY Diagnosis Date Abnormal LFTs (liver function tests) 06/27/2013 F/U [facility] Asthma Bladder neck obstruction 05/26/2009 BPH with obstruction/lower urinary tract symptoms Cancer (HCC) Chronic prostatitis 05/26/2009 Coronary artery disease Elevated prostate specific antigen (PSA) 07/19/2007 Esophageal reflux 1999 admitted for chest pain Essential hypertension 04/02/2009 Hepatic fibrosis (HCC) on elastography 02/09/2018 Dr. Kelby Suarez. 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 PMH - PAST MEDICAL HISTORY OF 1998 shingles without rash RBBB (right bundle branch block) 03/30/2009 Snoring Stented coronary artery 07/18/2017 MICHELLE to diagonal and mid LAD. Tubular adenoma of colon 02/08/2017 Umbilical hernia 01/08/2014 Unspecified essential hypertension 04/02/2009 FAMILY HISTORY Problem Relation Age of Onset Arthritis Mother Heart Mother Pacemaker Stroke Mother w/ bowel obstruction Cancer Mother skin Heart Father Pacemaker Cancer Father skin Lipids Brother Lipids Brother SOCIAL HISTORY Social History Tobacco Use Smoking status: Former Smoker Years: 36.00 Types: Cigars Smokeless tobacco: Never Used Tobacco comment: Last cigar 07/17/2017 Substance Use Topics Alcohol use: Yes Alcohol/week: 5.0 standard drinks Types: 1 Glasses of Wine (5oz), 1 Mixed Drinks per week Comment: one drink or shot once weekly occassional glass of wine Drug use: No PHYSICAL EXAMINATION General appearance: Well appearing, alert, in no acute distress and well- hydrated, well nourished Skin: Skin color, texture, turgor normal, no suspicious rashes or lesions Respiratory:+ effort Cardiovascular: Not examined GI: Normal abdominal exam, Abdomen soft, non-tender. No masses, organomegaly Musculoskeletal: Negative Neuro: Negative Genitourinary: not examined Impression: (N40.0) Benign prostatic hyperplasia, unspecified whether lower urinary tract symptoms present Plan: 6 months Timed voiding Urine cx kegel exercises Quan Tafoya Jr, MD 11/25/2021 [facility] Miscellaneous Notes* Telephone Encounter - Quan Tafoya Jr., MD - 11/08/2021 8:33 AM EDT signed * Telephone Encounter - Phil Perry Ma - 11/04/2021 12:43 PM EDT PSA please sign the pended order. Phil Perry Ma documented in this encounterK[facility]04-[facility]2022 Miscellaneous Notes* Telephone Encounter - Phil Perry Ma - 10/03/2021 9:11 AM EDT Patient informed and Cipro called into the local pharmacy. Phil Perry Ma * Telephone Encounter - Quan Tafoya Jr., MD - 10/03/2021 9:01 AM EDT New abx sent * Telephone Encounter - Phil Perry Ma - 10/03/2021 8:33 AM EDT Patient called stating that he was seen in the ER and was sent home with Keflex for a UTI. He states that he is urinating much better now but states that the Keflex seems to be up seting his stomach.He would like to know if you can review notes and culture to see if this is the correct antibiotic and if you would like to see him prior to his 11/24/2021 appointment. Can you advise? Phil Perry Ma documented in this encounterK[facility]04-22-2022 Miscellaneous Notes* Telephone Encounter - Alem Sims CMA - 09/30/2021 1:33 PM EDT Pt called states he has only been able to dribble a little urine out. Pt states he has been having dysuria and pain in his kidneys. No fever no chills no vomitting. Instructed pt to go to ER in [place] Sims CMA documented in this encounterK[facility]04-18-2022 Miscellaneous Notes* Telephone Encounter - Tevin De La Cruz MD - 09/26/2021 9:44 PM EDT Y[place] Can you please return the call, and let the patient know: -it looks like he has lost ~10# over the course of 9 days -his kidney function (on labs from today) looks stable -is his swelling gone? -how does he feel? I would suggest, if his swelling is better / resolved (or nearly) that he start taking the diuretics every other day, and continue to track daily weights (and of course, watch his serum sodium like [email or web address] keys) If his weight starts to climb on that regimen, and he seems to develop swelling again, then I wouldrestart daily diuretics Thanks * Telephone Encounter - Ananya Casiano RN - 09/26/2021 2:57 PM EDT Images from the original note were not included. Dr. Peterson, can you address this [employer] message? Thanks, Jesus Sandoval Robert S, MD 37 minutes ago (2:19 PM) I had the blood work you requested done today and have included my daily weights for the last week. Sunday, September 17, 2021 132/65 59 213.8 Saturday, September 18, 2021 125/71 58 212.2 Sunday, September 19, 2021 132/62 72 211.4 Sunday, September 20, 2021 118/76 73 209.8 Sunday, September 21, 2021 124/65 71 209.4 , September 22, 2021 124/66 55 208 Thursday, September 23, 2021 119/69 73 207.4 Sunday, September 24, 2021 115/77 72 206.4 Sunday, September 25, 2021 121/63 59 204.6 Sunday, September 26, 2021 122/63 58 203 documented in this encounterK[facility]02-28-2022 History of Past illness Narrative* Problem Noted Date Resolved Date BPH associated with nocturia 08/08/202112/2022 Abnormal result of iron profile testing 07/15/19 18 01/11/2022 Overview: Dr.Vincent Suarez Occult GI bleeding 01/19/2017 07/31/2017 Bladder mass 02/24/2016 07/07/2016 Rash 01/14/2015 04/17/2019 Abnormal LFTs (liver function tests) 06/27/2013 01/06/2021 Overview: Dr. Kebly Suarez, GI/hepatology. 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 Elevated prostate specific antigen (PSA) 008 07/31/2017 documented as of this encounter (statuses as of 09/20/2022) [facility] of Past illness Narrative* Problem Noted Date Resolved Date Abnormal result of iron profile testing 07/15/19 18 01/11/2022 Overview: Dr.Vincent Suarez Occult GI bleeding 01/19/2017 07/31/2017 Bladder mass 02/24/2016 07/07/2016 Rash 01/14/2015 04/17/2019 Abnormal LFTs (liver function tests) 06/27/2013 01/06/2021 Overview: Dr. Kelby Suarez, GI/hepatology. 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 Elevated prostate specific antigen (PSA) 008 07/31/2017 documented as of this encounter (statuses as of 01/11/2022) [facility] Narrative* Problem Noted Date Resolved Date Abnormal result of iron profile testing 07/15/19 18 01/11/2022 Overview: Dr.Vincent Suarez Occult GI bleeding 01/19/2017 07/31/2017 Bladder mass 02/24/2016 07/07/2016 Rash 01/14/2015 04/17/2019 Abnormal LFTs (liver function tests) 06/27/2013 01/06/2021 Overview: Dr. Kelby Suarez, GI/hepatology. 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 Elevated prostate specific antigen (PSA) 008 07/31/2017 documented as of this encounter (statuses as of 02/14/2022) [facility] Narrative* Problem Noted Date Resolved Date Abnormal result of iron profile testing 07/15/19 18 01/11/2022 Overview: Dr.Vincent Suarez Occult GI bleeding 01/19/2017 07/31/2017 Bladder mass 02/24/2016 07/07/2016 Rash 01/14/2015 04/17/2019 Abnormal LFTs (liver function tests) 06/27/2013 01/06/2021 Overview: Dr. Kelby Suarez, GI/hepatology. 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 Elevated prostate specific antigen (PSA) 008 07/31/2017 documented as of this encounter (statuses as of 03/23/2022) [facility] Narrative* Problem Noted Date Resolved Date Abnormal result of iron profile testing 07/15/19 18 01/11/2022 Overview: Dr.Vincent Suarez Occult GI bleeding 01/19/2017 07/31/2017 Bladder mass 02/24/2016 07/07/2016 Rash 01/14/2015 04/17/2019 Abnormal LFTs (liver function tests) 06/27/2013 01/06/2021 Overview: Dr. Kelby Suarez, GI/hepatology. 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 Elevated prostate specific antigen (PSA) 008 07/31/2017 documented as of this encounter (statuses as of 03/27/2022) [facility] Narrative* Problem Noted Date Resolved Date Abnormal result of iron profile testing 07/15/19 18 01/11/2022 Overview: Dr.Vincent Suarez Occult GI bleeding 01/19/2017 07/31/2017 Bladder mass 02/24/2016 07/07/2016 Rash 01/14/2015 04/17/2019 Abnormal LFTs (liver function tests) 06/27/2013 01/06/2021 Overview: Dr. Kelby Suarez, GI/hepatology. 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 Elevated prostate specific antigen (PSA) 008 07/31/2017 documented as of this encounter (statuses as of 03/31/2022) [facility] Narrative* Problem Noted Date Resolved Date Abnormal result of iron profile testing 07/15/19 18 01/11/2022 Overview: Dr.Vincent Suarez Occult GI bleeding 01/19/2017 07/31/2017 Bladder mass 02/24/2016 07/07/2016 Rash 01/14/2015 04/17/2019 Abnormal LFTs (liver function tests) 06/27/2013 01/06/2021 Overview: Dr. Kelby Suarez, GI/hepatology. 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 Elevated prostate specific antigen (PSA) 008 07/31/2017 documented as of this encounter (statuses as of 04/03/2022) [facility] Narrative* Problem Noted Date Resolved Date Abnormal result of iron profile testing 07/15/19 18 01/11/2022 Overview: Dr.Vincent Suarez Occult GI bleeding 01/19/2017 07/31/2017 Bladder mass 02/24/2016 07/07/2016 Rash 01/14/2015 04/17/2019 Abnormal LFTs (liver function tests) 06/27/2013 01/06/2021 Overview: Dr. Kelby Suarez, GI/hepatology. 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 Elevated prostate specific antigen (PSA) 008 07/31/2017 documented as of this encounter (statuses as of 04/06/2022) [facility] Narrative* Problem Noted Date Resolved Date Abnormal result of iron profile testing 07/15/19 18 01/11/2022 Overview: Dr.Vincent Suarez Occult GI bleeding 01/19/2017 07/31/2017 Bladder mass 02/24/2016 07/07/2016 Rash 01/14/2015 04/17/2019 Abnormal LFTs (liver function tests) 06/27/2013 01/06/2021 Overview: Dr. Kelby Suarez, GI/hepatology. 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 Elevated prostate specific antigen (PSA) 008 07/31/2017 documented as of this encounter (statuses as of 04/17/2022) [facility] Narrative* Problem Noted Date Resolved Date Abnormal result of iron profile testing 07/15/19 18 01/11/2022 Overview: Dr.Vincent Suarez Occult GI bleeding 01/19/2017 07/31/2017 Bladder mass 02/24/2016 07/07/2016 Rash 01/14/2015 04/17/2019 Abnormal LFTs (liver function tests) 06/27/2013 01/06/2021 Overview: Dr. Kelby Suarez, GI/hepatology. 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 Elevated prostate specific antigen (PSA) 008 07/31/2017 documented as of this encounter (statuses as of 04/19/2022) [facility] Narrative* Problem Noted Date Resolved Date Abnormal result of iron profile testing 07/15/19 18 01/11/2022 Overview: Dr.Vincent Suarez Occult GI bleeding 01/19/2017 07/31/2017 Bladder mass 02/24/2016 07/07/2016 Rash 01/14/2015 04/17/2019 Abnormal LFTs (liver function tests) 06/27/2013 01/06/2021 Overview: Dr. Kelby Suarez, GI/hepatology. 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 Elevated prostate specific antigen (PSA) 008 07/31/2017 documented as of this encounter (statuses as of 04/19/2022) [facility] Narrative* Problem Noted Date Resolved Date Abnormal result of iron profile testing 07/15/19 18 01/11/2022 Overview: Dr.Vincent Suarez Occult GI bleeding 01/19/2017 07/31/2017 Bladder mass 02/24/2016 07/07/2016 Rash 01/14/2015 04/17/2019 Abnormal LFTs (liver function tests) 06/27/2013 01/06/2021 Overview: Dr. Kelby Suarez, GI/hepatology. 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 Elevated prostate specific antigen (PSA) 008 07/31/2017 documented as of this encounter (statuses as of 05/09/2022) [facility] Narrative* Problem Noted Date Resolved Date Abnormal result of iron profile testing 07/15/19 18 01/11/2022 Overview: Dr.Vincent Suarez Occult GI bleeding 01/19/2017 07/31/2017 Bladder mass 02/24/2016 07/07/2016 Rash 01/14/2015 04/17/2019 Abnormal LFTs (liver function tests) 06/27/2013 01/06/2021 Overview: Dr. Kelby Suarez, GI/hepatology. 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 Elevated prostate specific antigen (PSA) 008 07/31/2017 documented as of this encounter (statuses as of 05/15/2022) [facility] Narrative* Problem Noted Date Resolved Date Abnormal result of iron profile testing 07/15/19 18 01/11/2022 Overview: Dr.Vincent Suarez Occult GI bleeding 01/19/2017 07/31/2017 Bladder mass 02/24/2016 07/07/2016 Rash 01/14/2015 04/17/2019 Abnormal LFTs (liver function tests) 06/27/2013 01/06/2021 Overview: Dr. Kelby Suarez, GI/hepatology. 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 Elevated prostate specific antigen (PSA) 008 07/31/2017 documented as of this encounter (statuses as of 05/24/2022) [facility] Narrative* Problem Noted Date Resolved Date Abnormal result of iron profile testing 07/15/19 18 01/11/2022 Overview: Dr.Vincent Suarez Occult GI bleeding 01/19/2017 07/31/2017 Bladder mass 02/24/2016 07/07/2016 Rash 01/14/2015 04/17/2019 Abnormal LFTs (liver function tests) 06/27/2013 01/06/2021 Overview: Dr. Kelby Suarez, GI/hepatology. 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 Elevated prostate specific antigen (PSA) 008 07/31/2017 documented as of this encounter (statuses as of 05/24/2022) [facility] Narrative* Problem Noted Date Resolved Date Abnormal result of iron profile testing 07/15/19 18 01/11/2022 Overview: Dr.Vincent Suarez Occult GI bleeding 01/19/2017 07/31/2017 Bladder mass 02/24/2016 07/07/2016 Rash 01/14/2015 04/17/2019 Abnormal LFTs (liver function tests) 06/27/2013 01/06/2021 Overview: Dr. Kelby Suarez, GI/hepatology. 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 Elevated prostate specific antigen (PSA) 008 07/31/2017 documented as of this encounter (statuses as of 05/29/2022) [facility] Narrative* Problem Noted Date Resolved Date Abnormal result of iron profile testing 07/15/19 18 01/11/2022 Overview: Dr.Vincent Suarez Occult GI bleeding 01/19/2017 07/31/2017 Bladder mass 02/24/2016 07/07/2016 Rash 01/14/2015 04/17/2019 Abnormal LFTs (liver function tests) 06/27/2013 01/06/2021 Overview: Dr. Kelby Suarez, GI/hepatology. 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 Elevated prostate specific antigen (PSA) 008 07/31/2017 documented as of this encounter (statuses as of 05/29/2022) [facility] Narrative* Problem Noted Date Resolved Date Abnormal result of iron profile testing 07/15/19 18 01/11/2022 Overview: Dr.Vincent Suarez Occult GI bleeding 01/19/2017 07/31/2017 Bladder mass 02/24/2016 07/07/2016 Rash 01/14/2015 04/17/2019 Abnormal LFTs (liver function tests) 06/27/2013 01/06/2021 Overview: Dr. Kelby Suarez, GI/hepatology. 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 Elevated prostate specific antigen (PSA) 008 07/31/2017 documented as of this encounter (statuses as of 06/02/2022) [facility] Narrative* Problem Noted Date Resolved Date Abnormal result of iron profile testing 07/15/19 18 01/11/2022 Overview: Dr.Vincent Suarez Occult GI bleeding 01/19/2017 07/31/2017 Bladder mass 02/24/2016 07/07/2016 Rash 01/14/2015 04/17/2019 Abnormal LFTs (liver function tests) 06/27/2013 01/06/2021 Overview: Dr. Kelby Suarez, GI/hepatology. 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 Elevated prostate specific antigen (PSA) 008 07/31/2017 documented as of this encounter (statuses as of 06/14/2022) [facility] Narrative* Problem Noted Date Resolved Date Abnormal result of iron profile testing 07/15/19 18 01/11/2022 Overview: Dr.Vincent Suarez Occult GI bleeding 01/19/2017 07/31/2017 Bladder mass 02/24/2016 07/07/2016 Rash 01/14/2015 04/17/2019 Abnormal LFTs (liver function tests) 06/27/2013 01/06/2021 Overview: Dr. Kelby Suarez, GI/hepatology. 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 Elevated prostate specific antigen (PSA) 008 07/31/2017 documented as of this encounter (statuses as of 06/14/2022) [facility] Narrative* Problem Noted Date Resolved Date Abnormal result of iron profile testing 07/15/19 18 01/11/2022 Overview: Dr.Vincent Suarez Occult GI bleeding 01/19/2017 07/31/2017 Bladder mass 02/24/2016 07/07/2016 Rash 01/14/2015 04/17/2019 Abnormal LFTs (liver function tests) 06/27/2013 01/06/2021 Overview: Dr. Kelby Suarez, GI/hepatology. 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 Elevated prostate specific antigen (PSA) 008 07/31/2017 documented as of this encounter (statuses as of 06/16/2022) [facility] Narrative* Problem Noted Date Resolved Date Abnormal result of iron profile testing 07/15/19 18 01/11/2022 Overview: Dr.Vincent Suarez Occult GI bleeding 01/19/2017 07/31/2017 Bladder mass 02/24/2016 07/07/2016 Rash 01/14/2015 04/17/2019 Abnormal LFTs (liver function tests) 06/27/2013 01/06/2021 Overview: Dr. Kelby Suarez, GI/hepatology. 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 Elevated prostate specific antigen (PSA) 008 07/31/2017 documented as of this encounter (statuses as of 06/19/2022) [facility] Narrative* Problem Noted Date Resolved Date Abnormal result of iron profile testing 07/15/19 18 01/11/2022 Overview: Dr.Vincent Suarez Occult GI bleeding 01/19/2017 07/31/2017 Bladder mass 02/24/2016 07/07/2016 Rash 01/14/2015 04/17/2019 Abnormal LFTs (liver function tests) 06/27/2013 01/06/2021 Overview: Dr. Kelby Suarez, GI/hepatology. 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 Elevated prostate specific antigen (PSA) 008 07/31/2017 documented as of this encounter (statuses as of 06/19/2022) [facility] Narrative* Problem Noted Date Resolved Date Abnormal result of iron profile testing 07/15/19 18 01/11/2022 Overview: Dr.Vincent Suarez Occult GI bleeding 01/19/2017 07/31/2017 Bladder mass 02/24/2016 07/07/2016 Rash 01/14/2015 04/17/2019 Abnormal LFTs (liver function tests) 06/27/2013 01/06/2021 Overview: Dr. Kelby Suarez, GI/hepatology. 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 Elevated prostate specific antigen (PSA) 008 07/31/2017 documented as of this encounter (statuses as of 06/25/2022) [facility] Narrative* Problem Noted Date Resolved Date Abnormal result of iron profile testing 07/15/19 18 01/11/2022 Overview: Dr.Vincent Suarez Occult GI bleeding 01/19/2017 07/31/2017 Bladder mass 02/24/2016 07/07/2016 Rash 01/14/2015 04/17/2019 Abnormal LFTs (liver function tests) 06/27/2013 01/06/2021 Overview: Dr. Kelby Suarez, GI/hepatology. 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 Elevated prostate specific antigen (PSA) 008 07/31/2017 documented as of this encounter (statuses as of 06/26/2022) [facility] Past [facility] Narrative* Problem Noted Date Resolved Date Abnormal result of iron profile testing 07/15/19 18 01/11/2022 Overview: Dr.Vincent Suarez Occult GI bleeding 01/19/2017 07/31/2017 Bladder mass 02/24/2016 07/07/2016 Rash 01/14/2015 04/17/2019 Abnormal LFTs (liver function tests) 06/27/2013 01/06/2021 Overview: Dr. Kelby Suarez, GI/hepatology. 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 Elevated prostate specific antigen (PSA) 008 07/31/2017 documented as of this encounter (statuses as of 06/28/2022) [facility]-04-2018 History of Past illness Narrative* Problem Noted Date Resolved Date Abnormal result of iron profile testing 07/15/19 18 01/11/2022 Overview: Dr.Vincent Suarez Occult GI bleeding 01/19/2017 07/31/2017 Bladder mass 02/24/2016 07/07/2016 Rash 01/14/2015 04/17/2019 Abnormal LFTs (liver function tests) 06/27/2013 01/06/2021 Overview: Dr. Kelby Suarez, GI/hepatology. 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 Elevated prostate specific antigen (PSA) 008 07/31/2017 documented as of this encounter (statuses as of 06/28/2022) [facility]2018 History of Past illness Narrative* Problem Noted Date Resolved Date Abnormal result of iron profile testing 07/15/19 18 01/11/2022 Overview: Dr.Vincent Suarez Occult GI bleeding 01/19/2017 07/31/2017 Bladder mass 02/24/2016 07/07/2016 Rash 01/14/2015 04/17/2019 Abnormal LFTs (liver function tests) 06/27/2013 01/06/2021 Overview: Dr. Kelby Suarez, GI/hepatology. 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 Elevated prostate specific antigen (PSA) 008 07/31/2017 documented as of this encounter (statuses as of 07/02/2022) [facility] History of Past illness Narrative* Problem Noted Date Resolved Date Abnormal result of iron profile testing 07/15/19 18 01/11/2022 Overview: Dr.Vincent Suarez Occult GI bleeding 01/19/2017 07/31/2017 Bladder mass 02/24/2016 07/07/2016 Rash 01/14/2015 04/17/2019 Abnormal LFTs (liver function tests) 06/27/2013 01/06/2021 Overview: Dr. Kelby Suarez, GI/hepatology. 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 Elevated prostate specific antigen (PSA) 008 07/31/2017 documented as of this encounter (statuses as of 07/11/2022) [facility] History of Past illness Narrative* Problem Noted Date Resolved Date Abnormal result of iron profile testing 07/15/19 18 01/11/2022 Overview: Dr.Vincent Suarez Occult GI bleeding 01/19/2017 07/31/2017 Bladder mass 02/24/2016 07/07/2016 Rash 01/14/2015 04/17/2019 Abnormal LFTs (liver function tests) 06/27/2013 01/06/2021 Overview: Dr. Kelby Suarez, GI/hepatology. 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 Elevated prostate specific antigen (PSA) 008 07/31/2017 documented as of this encounter (statuses as of 07/13/2022) [facility] History of Past illness Narrative* Problem Noted Date Resolved Date Abnormal result of iron profile testing 07/15/19 18 01/11/2022 Overview: Dr.Vincent Suarez Occult GI bleeding 01/19/2017 07/31/2017 Bladder mass 02/24/2016 07/07/2016 Rash 01/14/2015 04/17/2019 Abnormal LFTs (liver function tests) 06/27/2013 01/06/2021 Overview: Dr. Kelby Suarez, GI/hepatology. 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 Elevated prostate specific antigen (PSA) 008 07/31/2017 documented as of this encounter (statuses as of 07/17/2022) [facility] History of Past illness Narrative* Problem Noted Date Resolved Date Abnormal result of iron profile testing 07/15/19 18 01/11/2022 Overview: Dr.Vincent Suarez Occult GI bleeding 01/19/2017 07/31/2017 Bladder mass 02/24/2016 07/07/2016 Rash 01/14/2015 04/17/2019 Abnormal LFTs (liver function tests) 06/27/2013 01/06/2021 Overview: Dr. Kelby Suarez, GI/hepatology. 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 Elevated prostate specific antigen (PSA) 008 07/31/2017 documented as of this encounter (statuses as of 07/17/2022) [facility]2018 History of Past illness Narrative* Problem Noted Date Resolved Date Abnormal result of iron profile testing 07/15/19 18 01/11/2022 Overview: Dr.Vincent Suarez Occult GI bleeding 01/19/2017 07/31/2017 Bladder mass 02/24/2016 07/07/2016 Rash 01/14/2015 04/17/2019 Abnormal LFTs (liver function tests) 06/27/2013 01/06/2021 Overview: Dr. Kelby Suarez, GI/hepatology. 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 Elevated prostate specific antigen (PSA) 008 07/31/2017 documented as of this encounter (statuses as of 07/20/2022) [facility]2018 History of Past illness Narrative* Problem Noted Date Resolved Date Abnormal result of iron profile testing 07/15/19 18 01/11/2022 Overview: Dr.Vincent Suarez Occult GI bleeding 01/19/2017 07/31/2017 Bladder mass 02/24/2016 07/07/2016 Rash 01/14/2015 04/17/2019 Abnormal LFTs (liver function tests) 06/27/2013 01/06/2021 Overview: Dr. Kelby Suarez, GI/hepatology. 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 Elevated prostate specific antigen (PSA) 008 07/31/2017 documented as of this encounter (statuses as of 07/21/2022) [facility]2018 History of Past illness Narrative* Problem Noted Date Resolved Date Abnormal result of iron profile testing 07/15/19 18 01/11/2022 Overview: Dr.Vincent Suarez Occult GI bleeding 01/19/2017 07/31/2017 Bladder mass 02/24/2016 07/07/2016 Rash 01/14/2015 04/17/2019 Abnormal LFTs (liver function tests) 06/27/2013 01/06/2021 Overview: Dr. Kelby Suarez, GI/hepatology. 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 Elevated prostate specific antigen (PSA) 008 07/31/2017 documented as of this encounter (statuses as of 07/21/2022) [facility]2018 History of Past illness Narrative* Problem Noted Date Resolved Date Abnormal result of iron profile testing 07/15/19 18 01/11/2022 Overview: Dr.Vincent Suarez Occult GI bleeding 01/19/2017 07/31/2017 Bladder mass 02/24/2016 07/07/2016 Rash 01/14/2015 04/17/2019 Abnormal LFTs (liver function tests) 06/27/2013 01/06/2021 Overview: Dr. Kelby Suarez, GI/hepatology. 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 Elevated prostate specific antigen (PSA) 008 07/31/2017 documented as of this encounter (statuses as of 07/26/2022) [facility]2018 History of Past illness Narrative* Problem Noted Date Resolved Date Abnormal result of iron profile testing 07/15/19 18 01/11/2022 Overview: Dr.Vincent Suarez Occult GI bleeding 01/19/2017 07/31/2017 Bladder mass 02/24/2016 07/07/2016 Rash 01/14/2015 04/17/2019 Abnormal LFTs (liver function tests) 06/27/2013 01/06/2021 Overview: Dr. Kelby Suarez, GI/hepatology. 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 Elevated prostate specific antigen (PSA) 008 07/31/2017 documented as of this encounter (statuses as of 07/27/2022) [facility]2018 History of Past illness Narrative* Problem Noted Date Resolved Date Abnormal result of iron profile testing 07/15/19 18 01/11/2022 Overview: Dr.Vincent Suarez Occult GI bleeding 01/19/2017 07/31/2017 Bladder mass 02/24/2016 07/07/2016 Rash 01/14/2015 04/17/2019 Abnormal LFTs (liver function tests) 06/27/2013 01/06/2021 Overview: Dr. Kelby Suarez, GI/hepatology. 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 Elevated prostate specific antigen (PSA) 008 07/31/2017 documented as of this encounter (statuses as of 07/28/2022) [facility]2018 History of Past illness Narrative* Problem Noted Date Resolved Date Abnormal result of iron profile testing 07/15/19 18 01/11/2022 Overview: Dr.Vincent Suarez Occult GI bleeding 01/19/2017 07/31/2017 Bladder mass 02/24/2016 07/07/2016 Rash 01/14/2015 04/17/2019 Abnormal LFTs (liver function tests) 06/27/2013 01/06/2021 Overview: Dr. Kelby Suarez, GI/hepatology. 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 Elevated prostate specific antigen (PSA) 008 07/31/2017 documented as of this encounter (statuses as of 07/28/2022) [facility]2018 History of Past illness Narrative* Problem Noted Date Resolved Date Abnormal result of iron profile testing 07/15/19 18 01/11/2022 Overview: Dr.Vincent Suarez Occult GI bleeding 01/19/2017 07/31/2017 Bladder mass 02/24/2016 07/07/2016 Rash 01/14/2015 04/17/2019 Abnormal LFTs (liver function tests) 06/27/2013 01/06/2021 Overview: Dr. Kelby Suarez, GI/hepatology. 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 Elevated prostate specific antigen (PSA) 008 07/31/2017 documented as of this encounter (statuses as of 08/08/2022) [facility]2018 History of Past illness Narrative* Problem Noted Date Resolved Date Abnormal result of iron profile testing 07/15/19 18 01/11/2022 Overview: Dr.Vincent Suarez Occult GI bleeding 01/19/2017 07/31/2017 Bladder mass 02/24/2016 07/07/2016 Rash 01/14/2015 04/17/2019 Abnormal LFTs (liver function tests) 06/27/2013 01/06/2021 Overview: Dr. Kelby Suarez, GI/hepatology. 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 Elevated prostate specific antigen (PSA) 008 07/31/2017 documented as of this encounter (statuses as of 08/09/2022) [facility]2018 History of Past illness Narrative* Problem Noted Date Resolved Date Abnormal result of iron profile testing 07/15/19 18 01/11/2022 Overview: Dr.Vincent Suarez Occult GI bleeding 01/19/2017 07/31/2017 Bladder mass 02/24/2016 07/07/2016 Rash 01/14/2015 04/17/2019 Abnormal LFTs (liver function tests) 06/27/2013 01/06/2021 Overview: Dr. Kelby Suarez, GI/hepatology. 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 Elevated prostate specific antigen (PSA) 008 07/31/2017 documented as of this encounter (statuses as of 08/09/2022) [facility]2018 History of Past illness Narrative* Problem Noted Date Resolved Date Abnormal result of iron profile testing 07/15/19 18 01/11/2022 Overview: Dr.Vincent Suarez Occult GI bleeding 01/19/2017 07/31/2017 Bladder mass 02/24/2016 07/07/2016 Rash 01/14/2015 04/17/2019 Abnormal LFTs (liver function tests) 06/27/2013 01/06/2021 Overview: Dr. Kelby Suarez, GI/hepatology. 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 Elevated prostate specific antigen (PSA) 008 07/31/2017 documented as of this encounter (statuses as of 08/11/2022) [facility]2018 History of Past illness Narrative* Problem Noted Date Resolved Date Abnormal result of iron profile testing 07/15/19 18 01/11/2022 Overview: Dr.Vincent Suarez Occult GI bleeding 01/19/2017 07/31/2017 Bladder mass 02/24/2016 07/07/2016 Rash 01/14/2015 04/17/2019 Abnormal LFTs (liver function tests) 06/27/2013 01/06/2021 Overview: Dr. Kelby Suarez, GI/hepatology. 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 Elevated prostate specific antigen (PSA) 008 07/31/2017 documented as of this encounter (statuses as of 08/15/2022) [facility]2018 History of Past illness Narrative* Problem Noted Date Resolved Date Abnormal result of iron profile testing 07/15/19 18 01/11/2022 Overview: Dr.Vincent Suarez Occult GI bleeding 01/19/2017 07/31/2017 Bladder mass 02/24/2016 07/07/2016 Rash 01/14/2015 04/17/2019 Abnormal LFTs (liver function tests) 06/27/2013 01/06/2021 Overview: Dr. Kelby Suarez, GI/hepatology. 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 Elevated prostate specific antigen (PSA) 008 07/31/2017 documented as of this encounter (statuses as of 08/21/2022) [facility]2018 History of Past illness Narrative* Problem Noted Date Resolved Date Abnormal result of iron profile testing 07/15/19 18 01/11/2022 Overview: Dr.Vincent Suarez Occult GI bleeding 01/19/2017 07/31/2017 Bladder mass 02/24/2016 07/07/2016 Rash 01/14/2015 04/17/2019 Abnormal LFTs (liver function tests) 06/27/2013 01/06/2021 Overview: Dr. Kelby Suarez, GI/hepatology. 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 Elevated prostate specific antigen (PSA) 008 07/31/2017 documented as of this encounter (statuses as of 08/22/2022) [facility]2018 History of Past illness Narrative* Problem Noted Date Resolved Date Abnormal result of iron profile testing 07/15/19 18 01/11/2022 Overview: Dr.Vincent Suarez Occult GI bleeding 01/19/2017 07/31/2017 Bladder mass 02/24/2016 07/07/2016 Rash 01/14/2015 04/17/2019 Abnormal LFTs (liver function tests) 06/27/2013 01/06/2021 Overview: Dr. Kelby Suarez, GI/hepatology. 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 Elevated prostate specific antigen (PSA) 008 07/31/2017 documented as of this encounter (statuses as of 08/30/2022) [facility]2018 History of Past illness Narrative* Problem Noted Date Resolved Date Abnormal result of iron profile testing 07/15/19 18 01/11/2022 Overview: Dr.Vincent Suarez Occult GI bleeding 01/19/2017 07/31/2017 Bladder mass 02/24/2016 07/07/2016 Rash 01/14/2015 04/17/2019 Abnormal LFTs (liver function tests) 06/27/2013 01/06/2021 Overview: Dr. Kelby Suarez, GI/hepatology. 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 Elevated prostate specific antigen (PSA) 008 07/31/2017 documented as of this encounter (statuses as of 08/31/2022) [facility]2018 History of Past illness Narrative* Problem Noted Date Resolved Date Abnormal result of iron profile testing 07/15/19 18 01/11/2022 Overview: Dr.Vincent Suarez Occult GI bleeding 01/19/2017 07/31/2017 Bladder mass 02/24/2016 07/07/2016 Rash 01/14/2015 04/17/2019 Abnormal LFTs (liver function tests) 06/27/2013 01/06/2021 Overview: Dr. Kelby Suarez, GI/hepatology. 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 Elevated prostate specific antigen (PSA) 008 07/31/2017 documented as of this encounter (statuses as of 09/02/2022) [facility]2018 History of Past illness Narrative* Problem Noted Date Resolved Date Abnormal result of iron profile testing 07/15/19 18 01/11/2022 Overview: Dr.Vincent Suarez Occult GI bleeding 01/19/2017 07/31/2017 Bladder mass 02/24/2016 07/07/2016 Rash 01/14/2015 04/17/2019 Abnormal LFTs (liver function tests) 06/27/2013 01/06/2021 Overview: Dr. Kelby Suarez, GI/hepatology. 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 Elevated prostate specific antigen (PSA) 008 07/31/2017 documented as of this encounter (statuses as of 09/04/2022) [facility]2018 History of Past illness Narrative* Problem Noted Date Resolved Date Abnormal result of iron profile testing 07/15/19 18 01/11/2022 Overview: Dr.Vincent Suarez Occult GI bleeding 01/19/2017 07/31/2017 Bladder mass 02/24/2016 07/07/2016 Rash 01/14/2015 04/17/2019 Abnormal LFTs (liver function tests) 06/27/2013 01/06/2021 Overview: Dr. Kelby Suarez, GI/hepatology. 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 Elevated prostate specific antigen (PSA) 008 07/31/2017 documented as of this encounter (statuses as of 09/05/2022) [facility]2018 History of Past illness Narrative* Problem Noted Date Resolved Date Abnormal result of iron profile testing 07/15/19 18 01/11/2022 Overview: Dr.Vincent Suarez Occult GI bleeding 01/19/2017 07/31/2017 Bladder mass 02/24/2016 07/07/2016 Rash 01/14/2015 04/17/2019 Abnormal LFTs (liver function tests) 06/27/2013 01/06/2021 Overview: Dr. Kelby Suarez, GI/hepatology. 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 Elevated prostate specific antigen (PSA) 008 07/31/2017 documented as of this encounter (statuses as of 09/07/2022) [facility] History of Past illness Narrative* Problem Noted Date Resolved Date Abnormal result of iron profile testing 07/15/19 18 01/11/2022 Overview: Dr.Vincent Suarez Occult GI bleeding 01/19/2017 07/31/2017 Bladder mass 02/24/2016 07/07/2016 Rash 01/14/2015 04/17/2019 Abnormal LFTs (liver function tests) 06/27/2013 01/06/2021 Overview: Dr. Kelby Suarez, GI/hepatology. 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 Elevated prostate specific antigen (PSA) 008 07/31/2017 documented as of this encounter (statuses as of 09/12/2022) [facility]2018 History of Past illness Narrative* Problem Noted Date Resolved Date Abnormal result of iron profile testing 07/15/19 18 01/11/2022 Overview: Dr.Vincent Suarez Occult GI bleeding 01/19/2017 07/31/2017 Bladder mass 02/24/2016 07/07/2016 Rash 01/14/2015 04/17/2019 Abnormal LFTs (liver function tests) 06/27/2013 01/06/2021 Overview: Dr. Kelby Suarez, GI/hepatology. 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 Elevated prostate specific antigen (PSA) 008 07/31/2017 documented as of this encounter (statuses as of 09/13/2022) [facility] History of Past illness Narrative* Problem Noted Date Resolved Date Abnormal result of iron profile testing 07/15/19 18 01/11/2022 Overview: Dr.Vincent Suarez Occult GI bleeding 01/19/2017 07/31/2017 Bladder mass 02/24/2016 07/07/2016 Rash 01/14/2015 04/17/2019 Abnormal LFTs (liver function tests) 06/27/2013 01/06/2021 Overview: Dr. Kelby Suarez, GI/hepatology. 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 Elevated prostate specific antigen (PSA) 008 07/31/2017 documented as of this encounter (statuses as of 09/14/2022) [facility] History of Past illness Narrative* Problem Noted Date Resolved Date Occult GI bleeding 01/19/2017 07/31/2017 Bladder mass 02/24/2016 07/07/2016 Rash 01/14/2015 04/17/2019 Abnormal LFTs (liver function tests) 06/27/2013 01/06/2021 Overview: Dr. Kelby Suarez, GI/hepatology. 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 Elevated prostate specific antigen (PSA) 008 07/31/2017 documented as of this encounter (statuses as of 09/27/2021) [facility] History of Past illness Narrative* Problem Noted Date Resolved Date Occult GI bleeding 01/19/2017 07/31/2017 Bladder mass 02/24/2016 07/07/2016 Rash 01/14/2015 04/17/2019 Abnormal LFTs (liver function tests) 06/27/2013 01/06/2021 Overview: Dr. Kelby Suarez, GI/hepatology. 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 Elevated prostate specific antigen (PSA) 008 07/31/2017 documented as of this encounter (statuses as of 09/27/2021) [facility] History of Past illness Narrative* Problem Noted Date Resolved Date Occult GI bleeding 01/19/2017 07/31/2017 Bladder mass 02/24/2016 07/07/2016 Rash 01/14/2015 04/17/2019 Abnormal LFTs (liver function tests) 06/27/2013 01/06/2021 Overview: Dr. Kelby Suarez, GI/hepatology. 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 Elevated prostate specific antigen (PSA) 2 008 07/31/2017 documented as of this encounter (statuses as of 10/03/2021) [facility] History of Past illness Narrative* Problem Noted Date Resolved Date Occult GI bleeding 01/19/2017 07/31/2017 Bladder mass 02/24/2016 07/07/2016 Rash 01/14/2015 04/17/2019 Abnormal LFTs (liver function tests) 06/27/2013 01/06/2021 Overview: Dr. Kelby Suarez, GI/hepatology. 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 Elevated prostate specific antigen (PSA) 008 07/31/2017 documented as of this encounter (statuses as of 11/08/2021) [facility] History of Past illness Narrative* Problem Noted Date Resolved Date Occult GI bleeding 01/19/2017 07/31/2017 Bladder mass 02/24/2016 07/07/2016 Rash 01/14/2015 04/17/2019 Abnormal LFTs (liver function tests) 06/27/2013 01/06/2021 Overview: Dr. Kelby Suarez, GI/hepatology. 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 Elevated prostate specific antigen (PSA) 008 07/31/2017 documented as of this encounter (statuses as of 11/25/2021) [facility]08-11-2017 History of Past illness Narrative* Problem Noted Date Resolved Date Occult GI bleeding 01/19/2017 07/31/2017 Bladder mass 02/24/2016 07/07/2016 Rash 01/14/2015 04/17/2019 Abnormal LFTs (liver function tests) 06/27/2013 01/06/2021 Overview: Dr. Kelby Suarez, GI/hepatology. 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 Elevated prostate specific antigen (PSA) 008 07/31/2017 documented as of this encounter (statuses as of 11/30/2021) [facility]-11-2017 History of Past illness Narrative* Problem Noted Date Resolved Date Occult GI bleeding 01/19/2017 07/31/2017 Bladder mass 02/24/2016 07/07/2016 Rash 01/14/2015 04/17/2019 Abnormal LFTs (liver function tests) 06/27/2013 01/06/2021 Overview: Dr. Kelby Suarez, GI/hepatology. 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 Elevated prostate specific antigen (PSA) 008 07/31/2017 documented as of this encounter (statuses as of 12/02/2021) [facility]2017 History of Past illness Narrative* Problem Noted Date Resolved Date Occult GI bleeding 01/19/2017 07/31/2017 Bladder mass 02/24/2016 07/07/2016 Rash 01/14/2015 04/17/2019 Abnormal LFTs (liver function tests) 06/27/2013 01/06/2021 Overview: Dr. Kelby Suarez, GI/hepatology. 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 Elevated prostate specific antigen (PSA) 008 07/31/2017 documented as of this encounter (statuses as of 12/29/2021) [facility]2017 History of Past illness Narrative* Problem Noted Date Resolved Date Occult GI bleeding 01/19/2017 07/31/2017 Bladder mass 02/24/2016 07/07/2016 Rash 01/14/2015 04/17/2019 Abnormal LFTs (liver function tests) 06/27/2013 01/06/2021 Overview: Dr. Kelby Suarez, GI/hepatology. 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 Elevated prostate specific antigen (PSA) 008 07/31/2017 documented as of this encounter (statuses as of 01/06/2022) [facility] note* Diagnosis Benign prostatic hyperplasia, unspecified whether lower urinary tract symptoms present- Primary [facility] [place] noteNo assessment information availableWMercy [facility] Work Phone: Evaluation note* Diagnosis Benign prostatic hyperplasia, unspecified whether lower urinary tract symptoms present [facility] [place] [facility]* Diagnosis Cirrhosis of liver with ascites, unspecified hepatic cirrhosis type (HCC) [facility] [place] [facility]* Diagnosis Cirrhosis of liver with ascites, unspecified hepatic cirrhosis type (HCC)- Primary Portal hypertension with esophageal varices (HCC) Portal hypertension Liver disease, unspecified [facility] [place] [facility]* Diagnosis Cirrhosis of liver with ascites, unspecified hepatic cirrhosis type (HCC) Portal hypertension with esophageal varices (HCC) Portal hypertension 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 [place] [facility]* Diagnosis Portal hypertension with esophageal varices (HCC)- Primary Portal hypertension [facility] [place] [facility]* Diagnosis Cirrhosis of liver with ascites, unspecified hepatic cirrhosis type (HCC)- Primary 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) Other chronic nonalcoholic liver disease [facility] Mixed hyper[facility] Diagnosis BPH with obstruction/lower urinary tract symptoms- Primary Hypertrophy of prostate with urinary obstruction and other lower urinary tract symptoms (LUTS) [facility] Diagnosis Onset Date Resolution Status 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 VANESSA on CPAP chronic 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 Atherosclerotic heart diseas e of [place] coronary artery without angina pectoris chronic Essential hypertension chron ic Pure hypercholesterolemia ch [facility] Work Phone: Evaluation note* Diagnosis Need for vaccination- Primary Need for prophylactic vaccination and inoculation against unspecified single disease [facility] Diagnosis Other cirrhosis of liver (HCC)- Primary [facility] Diagnosis Other cirrhosis of liver (HCC) Portal hypertension with esophageal varices (HCC) Portal hypertension Generalized edema Edema Bronchiolar disease Other diseases of trachea and bronchus Other cirrhosis of liver (HCC) [facility] Diagnosis Portal hypertension with esophageal varices (HCC)- Primary Portal hypertension 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) Other chronic nonalcoholic liver disease Other cirrhosis of liver (HCC) [facility] Diagnosis Portal hypertension with esophageal varices (HCC) Portal hypertension Other cirrhosis of liver (HCC) [facility] Diagnosis 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 Other chronic nonalcoholic liver disease Portal hypertension with esophageal varices (HCC) Portal hypertension Other cirrhosis of liver (HCC) [facility] Diagnosis Coronary arteriosclerosis in [place] artery- Primary Coronary atherosclerosis of [place] coronary artery Essential hypertension Unspecified essential hypertension Portal hypertension with esophageal varices (HCC) Portal hypertension Mixed hyperlipidemia Impaired fasting glucose Other cirrhosis of liver (HCC) [facility] Portal hypertension with esophageal varices (HCC)- Primary Portal hypertension 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) Other chronic nonalcoholic liver disease Other cirrhosis of liver (HCC) [facility] Diagnosis Liver cirrhosis secondary to UDRANT (HCC)- Primary Other chronic nonalcoholic liver disease Bronchiolar disease Other diseases of trachea and bronchus [facility] Diagnosis Other ascites- Primary [facility] Diagnosis Other cirrhosis of liver (HCC) [facility] Diagnosis Other ascites- Primary 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) Other chronic nonalcoholic liver disease Portal hypertension with esophageal varices (HCC) Portal hypertension [facility] Diagnosis Preoperative examination- Primary Preoperative examination, unspecified 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) Other chronic nonalcoholic liver disease Portal hypertension with esophageal varices (HCC) Portal hypertension Bronchiolar disease Other diseases of trachea and bronchus [facility] Diagnosis Other cirrhosis of liver (HCC)- Primary Other cirrhosis of liver (HCC) Bronchiolar disease Other diseases of trachea and bronchus Portal hypertension (HCC) Portal hypertension [facility] Diagnosis Need for vaccination- Primary Need for prophylactic vaccination and inoculation against unspecified single disease Bronchiolar disease Other diseases of trachea and bronchus Portal hypertension (HCC) Portal hypertension [facility] Diagnosis Right inguinal hernia- Primary Inguinal hernia without mention of obstruction or gangrene, unilateral or unspecified, (not specified as recurrent) Nonalcoholic fatty liver disease without nonalcoholic steatohepatitis (DURANT) Hepatic fibrosis (HCC) on elastography Cirrhosis of liver without mention of alcohol Bronchiolar disease Other diseases of trachea and bronchus Portal hypertension (HCC) Portal hypertension [facility] Diagnosis Portal hypertension (HCC)- Primary Portal hypertension Elevated LFTs Other abnormal blood chemistry Abnormal results of liver function studies Nonspecific abnormal results of liver function study Bronchiolar disease Other diseases of trachea and bronchus Portal hypertension (HCC) Portal hypertension [facility] Diagnosis Other ascites- Primary Bronchiolar disease Other diseases of trachea and bronchus [facility] Diagnosis Need for vaccination- Primary Need for prophylactic vaccination and inoculation against unspecified single disease 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) Other chronic nonalcoholic liver disease Bronchiolar disease Other diseases of trachea and bronchus [facility] Diagnosis Coronary artery 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 artery of [place] heart, unspecified whether angina present- Primary Encounter for screening for malignant neoplasm of prostate Special screening for malignant neoplasm of prostate Liver transplant candidate DURANT (nonalcoholic steatohepatitis) Other chronic nonalcoholic liver disease Other cirrhosis of liver (HCC) Encounter for screening for human immunodeficiency virus (HIV) Special screening examination for other specified viral diseases Abnormal findings on diagnostic imaging of other specified body structures Encounter for observation for other suspected diseases and conditions ruled out Liver disease, unspecified Type 2 diabetes mellitus with other circulatory complications (HCC) Bronchiolar disease Other diseases of trachea and bronchus [facility] Pleural effusion- Primary Unspecified pleural effusion [facility] Diagnosis Pleural effusion Unspecified pleural effusion [facility] [place] [facility]* Diagnosis Bilateral lower extremity edema- Primary Edema Abnormal x-ray Other nonspecific (abnormal) findings on radiological and other examinations of body structure [facility] [place] [facility]* Diagnosis Right inguinal hernia Inguinal hernia without mention of obstruction or gangrene, unilateral or unspecified, (not specified as recurrent) [facility] [place] [facility]* Diagnosis Encounter for education- Primary Counseling NOS [facility]* Diagnosis Liver transplant candidate- Primary DURANT (nonalcoholic steatohepatitis) Other chronic nonalcoholic liver disease [facility] Diagnosis Liver transplant candidate- Primary DURANT (nonalcoholic steatohepatitis) Other chronic nonalcoholic liver disease Coronary artery 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 artery of [place] heart without angina pectoris Stage 3a chronic kidney disease (HCC) VANESSA (obstructive sleep apnea) Obstructive sleep apnea (adult) (pediatric) [facility] Liver transplant candidate DURANT (nonalcoholic steatohepatitis) Other chronic nonalcoholic liver disease [facility]* Diagnosis Encounter for medication review and counseling Other specified counseling Bronchiolar disease Other diseases of trachea and bronchus [facility] Diagnosis Liver transplant candidate [Z76.82 (ICD-10-CM)]- Primary DURANT (nonalcoholic steatohepatitis) [K75.81 (ICD-10-CM)] Other chronic nonalcoholic liver disease 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)] Other specified forms of effusion, except tuberculous Other ascites [R18.8 (ICD-10-CM)] Other ascites Bronchiolar disease Other diseases of trachea and bronchus [facility] Diagnosis Pre-transplant evaluation for liver transplant- Primary Bronchiolar disease Other diseases of trachea and bronchus [facility] Diagnosis 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) Other chronic nonalcoholic liver disease Bronchiolar disease Other diseases of trachea and bronchus [facility] Diagnosis S/P TIPS (transjugular intrahepatic portosystemic shunt)- Primary Other postprocedural status Bronchiolar disease Other diseases of trachea and bronchus [facility] Diagnosis 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) Other chronic nonalcoholic liver disease Bronchiolar disease Other diseases of trachea and bronchus [facility]* Diagnosis Other cirrhosis of liver (HCC) Bronchiolar disease Other diseases of trachea and bronchus [facility] [place] [facility]* Diagnosis 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 Other chronic nonalcoholic liver disease S/P TIPS (transjugular intrahepatic portosystemic shunt) Other postprocedural status Portal hypertension with esophageal varices (HCC) Portal hypertension Bronchiolar disease Other diseases of trachea and bronchus Bronchiolar disease Other diseases of trachea and bronchus [facility] Diagnosis Preop cardiovascular exam- Primary Pre-operative cardiovascular examination Bronchiolar disease Other diseases of trachea and bronchus [facility] Diagnosis 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 Other chronic nonalcoholic liver disease Bronchiolar disease Other diseases of trachea and bronchus Pre-op testing Preoperative examination, unspecified [facility] Diagnosis S/P thoracentesis- Primary Other postprocedural status Bronchiolar disease Other diseases of trachea and bronchus Pre-op testing Preoperative examination, unspecified [facility] Diagnosis Pleural effusion Unspecified pleural effusion Bronchiolar disease Other diseases of trachea and bronchus Pre-op testing Preoperative examination, unspecified [facility] Diagnosis S/P thoracentesis Other postprocedural status Bronchiolar disease Other diseases of trachea and bronchus Pre-op testing Preoperative examination, unspecified [facility] Diagnosis S/P TIPS (transjugular intrahepatic portosystemic shunt) Other postprocedural status Bronchiolar disease Other diseases of trachea and bronchus [facility] Diagnosis Encounter for follow-up- Primary Bronchiolar disease Other diseases of trachea and bronchus [facility] Diagnosis 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 Other chronic nonalcoholic liver disease Bronchiolar disease Other diseases of trachea and bronchus [facility] Diagnosis 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) Other chronic nonalcoholic liver disease Atherosclerotic heart disease of [place] coronary artery without angina pectoris Coronary atherosclerosis of [place] coronary artery Encounter for other preprocedural examination Bronchiolar disease Other diseases of trachea and bronchus [facility] Diagnosis Nonalcoholic fatty liver disease without nonalcoholic steatohepatitis (DURANT)- Primary Encounter for screening for osteoporosis Special screening for osteoporosis Age-related osteoporosis without current pathological fracture Senile osteoporosis [facility] Diagnosis Pleural effusion associated with hepatic disorder- Primary Other specified forms of effusion, except tuberculous Bronchiolar disease Other diseases of trachea and bronchus [facility]* Diagnosis Medicare annual wellness visit, subsequent- Primary Routine general medical examination at a health care facility Transient diplopia Diplopia Hyperglycemia Other abnormal glucose Stage 3a chronic kidney disease (HCC) Nonalcoholic fatty liver disease without nonalcoholic steatohepatitis (DURANT) 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) Other chronic nonalcoholic liver disease Platelets decreased (HCC) Thrombocytopenia, unspecified Need for vaccination Need for prophylactic vaccination and inoculation against unspecified single disease Bronchiolar disease Other diseases of trachea and bronchus [facility] Diagnosis Pleural effusion associated with hepatic disorder- Primary Other specified forms of effusion, except tuberculous Bronchiolar disease Other diseases of trachea and bronchus [facility] Diagnosis 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) Other chronic nonalcoholic liver disease Bronchiolar disease Other diseases of trachea and bronchus [facility] Diagnosis Need for vaccination- Primary Need for prophylactic vaccination and inoculation against unspecified single disease Need for influenza vaccination Need for prophylactic vaccination and inoculation against influenza Bronchiolar disease Other diseases of trachea and bronchus [facility] Diagnosis DURANT (nonalcoholic steatohepatitis) Other chronic nonalcoholic liver disease Bronchiolar disease Other diseases of trachea and bronchus [facility] Diagnosis Liver replaced by transplant (HCC)- Primary Liver replaced by transplant [facility] Diagnosis Liver replaced by transplant (HCC)- Primary Liver replaced by transplant [facility] Diagnosis Portal hypertension with esophageal varices (HCC) Portal hypertension 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) Other chronic nonalcoholic liver disease [facility]* Diagnosis Coronary arteriosclerosis in [place] artery- Primary Coronary atherosclerosis of [place] coronary artery Chronic diastolic congestive heart failure (HCC) Chronic diastolic heart failure Mixed hyperlipidemia [facility] Diagnosis Liver replaced by transplant (HCC)- Primary Liver replaced by transplant Unspecified severe protein-calorie malnutrition (HCC) [facility] Diagnosis Liver transplant recipient (HCC)- Primary DURANT (nonalcoholic steatohepatitis) Other chronic nonalcoholic liver disease Stage 3 chronic kidney disease, unspecified whether stage 3a or 3b CKD (HCC) 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 H/O prostatectomy Other postprocedural status Nonalcoholic fatty liver disease without nonalcoholic steatohepatitis (DURANT) [facility] Diagnosis Liver transplant recipient (HCC)- Primary Asymptomatic human immunodeficiency virus (hiv) infection status (HCC) [facility] Diagnosis Mixed hyperlipidemia Coronary arteriosclerosis in [place] artery Coronary atherosclerosis of [place] coronary artery Liver transplant recipient (HCC) [facility] Diagnosis Liver transplant recipient (HCC)- Primary Chronic diastolic congestive heart failure (HCC) Chronic diastolic heart failure Coronary arteriosclerosis in [place] artery Coronary atherosclerosis of [place] coronary artery Primary hypertension Unspecified essential hypertension [facility] Diagnosis Mixed hyperlipidemia- Primary Coronary arteriosclerosis in [place] artery Coronary atherosclerosis of [place] coronary artery [facility] Diagnosis Coronary artery 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 artery of [place] heart without angina pectoris- Primary Chronic diastolic congestive heart failure (HCC) Chronic diastolic heart failure Primary hypertension Unspecified essential hypertension Mixed hyperlipidemia [facility] Diagnosis Liver transplanted (HCC)- Primary Liver replaced by transplant Immunosuppressed status (HCC) Unspecified disorder of immune mechanism [facility] [place] [facility] Diagnosis Mixed hyperlipidemia Coronary arteriosclerosis in [place] artery Coronary atherosclerosis of [place] coronary artery Liver transplant recipient (HCC) [facility] [place] [facility]* Diagnosis Liver transplanted (HCC)- Primary Liver replaced by transplant [facility] [place] [facility]* Diagnosis Pre-op evaluation- Primary Preoperative examination, unspecified H/O prostatectomy Other postprocedural status Essential hypertension Unspecified essential hypertension Stented coronary artery Postsurgical percutaneous transluminal coronary angioplasty status VANESSA (obstructive sleep apnea) Obstructive sleep apnea (adult) (pediatric) Stage 3a chronic kidney disease (HCC) Right inguinal hernia Inguinal hernia without mention of obstruction or gangrene, unilateral or unspecified, (not specified as recurrent) Bronchiolar disease Other diseases of trachea and bronchus Other ascites Post-operative pain- Primary Other acute postoperative pain Cirrhosis (HCC) Cirrhosis of liver without mention of alcohol VANESSA (obstructive sleep apnea) Obstructive sleep apnea (adult) (pediatric) Liver transplant recipient (HCC) 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 Vitamin D deficiency Unspecified vitamin D deficiency Medicare annual wellness visit, subsequent- Primary Routine general medical examination at a health care facility Basal cell carcinoma of multiple sites of head and neck Basal cell carcinoma of scalp and skin of neck Screening for depression Encounter for screening examination for other mental health and behavioral disorders Chronic diastolic congestive heart failure (HCC) Chronic diastolic heart failure Primary hypertension Unspecified essential hypertension Coronary artery 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 artery of [place] heart without angina pectoris Edema of both legs Edema Prediabetes Other abnormal glucose 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) Other chronic nonalcoholic liver disease Stage 3 chronic kidney disease, unspecified whether stage 3a or 3b CKD (HCC) [facility] [place] [facility]* Diagnosis Pre-op evaluation- Primary Preoperative examination, unspecified H/O prostatectomy Other postprocedural status Essential hypertension Unspecified essential hypertension Stented coronary artery Postsurgical percutaneous transluminal coronary angioplasty status VANESSA (obstructive sleep apnea) Obstructive sleep apnea (adult) (pediatric) Stage 3a chronic kidney disease (HCC) Right inguinal hernia Inguinal hernia without mention of obstruction or gangrene, unilateral or unspecified, (not specified as recurrent) Bronchiolar disease Other diseases of trachea and bronchus Other ascites Pleural effusion associated with hepatic disorder Other specified forms of effusion, except tuberculous Post-operative pain- Primary Other acute postoperative pain Cirrhosis (HCC) Cirrhosis of liver without mention of alcohol [facility]* Diagnosis Pre-op evaluation- Primary Preoperative examination, unspecified H/O prostatectomy Other postprocedural status Essential hypertension Unspecified essential hypertension Stented coronary artery Postsurgical percutaneous transluminal coronary angioplasty status VANESSA (obstructive sleep apnea) Obstructive sleep apnea (adult) (pediatric) Stage 3a chronic kidney disease (HCC) Right inguinal hernia Inguinal hernia without mention of obstruction or gangrene, unilateral or unspecified, (not specified as recurrent) Bronchiolar disease Other diseases of trachea and bronchus Other ascites Post-operative pain- Primary Other acute postoperative pain Cirrhosis (HCC) Cirrhosis of liver without mention of alcohol VANESSA (obstructive sleep apnea) Obstructive sleep apnea (adult) (pediatric) Liver transplant recipient (HCC) 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 Vitamin D deficiency Unspecified vitamin D deficiency Liver transplanted (HCC)- Primary Liver replaced by transplant [facility] [place] [facility]* Diagnosis Pre-op evaluation- Primary Preoperative examination, unspecified H/O prostatectomy Other postprocedural status Essential hypertension Unspecified essential hypertension Stented coronary artery Postsurgical percutaneous transluminal coronary angioplasty status VANESSA (obstructive sleep apnea) Obstructive sleep apnea (adult) (pediatric) Stage 3a chronic kidney disease (HCC) Right inguinal hernia Inguinal hernia without mention of obstruction or gangrene, unilateral or unspecified, (not specified as recurrent) Bronchiolar disease Other diseases of trachea and bronchus Other ascites Post-operative pain- Primary Other acute postoperative pain Cirrhosis (HCC) Cirrhosis of liver without mention of alcohol VANESSA (obstructive sleep apnea) Obstructive sleep apnea (adult) (pediatric) Liver transplant recipient (HCC) 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 Vitamin D deficiency Unspecified vitamin D deficiency Encounter for immunization Need for other specified prophylactic vaccination against single bacterial disease [facility]* Diagnosis Other cirrhosis of liver (HCC) Bronchiolar disease Other diseases of trachea and bronchus [facility] [place] [facility]* Diagnosis Pre-op evaluation- Primary Preoperative examination, unspecified H/O prostatectomy Other postprocedural status Essential hypertension Unspecified essential hypertension Stented coronary artery Postsurgical percutaneous transluminal coronary angioplasty status VANESSA (obstructive sleep apnea) Obstructive sleep apnea (adult) (pediatric) Stage 3a chronic kidney disease (HCC) Right inguinal hernia Inguinal hernia without mention of obstruction or gangrene, unilateral or unspecified, (not specified as recurrent) Bronchiolar disease Other diseases of trachea and bronchus Other ascites Post-operative pain- Primary Other acute postoperative pain Cirrhosis (HCC) Cirrhosis of liver without mention of alcohol VANESSA (obstructive sleep apnea) Obstructive sleep apnea (adult) (pediatric) Liver transplant recipient (HCC) 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 Vitamin D deficiency Unspecified vitamin D deficiency Liver transplanted (HCC)- Primary Liver replaced by transplant Immunosuppressed status (HCC) Unspecified disorder of immune mechanism Non-melanoma skin cancer Unspecified malignant neoplasm of skin, site unspecified History of cigar smoking documented in this encounter [facility] note* Diagnosis Pre-op evaluation- Primary Preoperative examination, unspecified H/O prostatectomy Other postprocedural status Essential hypertension Unspecified essential hypertension Stented coronary artery Postsurgical percutaneous transluminal coronary angioplasty status VANESSA (obstructive sleep apnea) Obstructive sleep apnea (adult) (pediatric) Stage 3a chronic kidney disease (HCC) Right inguinal hernia Inguinal hernia without mention of obstruction or gangrene, unilateral or unspecified, (not specified as recurrent) Bronchiolar disease Other diseases of trachea and bronchus Other ascites Post-operative pain- Primary Other acute postoperative pain Cirrhosis (HCC) Cirrhosis of liver without mention of alcohol VANESSA (obstructive sleep apnea) Obstructive sleep apnea (adult) (pediatric) Liver transplant recipient (HCC) 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 Vitamin D deficiency Unspecified vitamin D deficiency Liver transplanted (HCC)- Primary Liver replaced by transplant documented in this encounter [facility] note* Diagnosis Pre-op evaluation- Primary Preoperative examination, unspecified H/O prostatectomy Other postprocedural status Essential hypertension Unspecified essential hypertension Stented coronary artery Postsurgical percutaneous transluminal coronary angioplasty status VANESSA (obstructive sleep apnea) Obstructive sleep apnea (adult) (pediatric) Stage 3a chronic kidney disease (HCC) Right inguinal hernia Inguinal hernia without mention of obstruction or gangrene, unilateral or unspecified, (not specified as recurrent) Bronchiolar disease Other diseases of trachea and bronchus Other ascites Post-operative pain- Primary Other acute postoperative pain Cirrhosis (HCC) Cirrhosis of liver without mention of alcohol VANESSA (obstructive sleep apnea) Obstructive sleep apnea (adult) (pediatric) Liver transplant recipient (HCC) 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 Vitamin D deficiency Unspecified vitamin D deficiency Chronic diastolic congestive heart failure (HCC) Chronic diastolic heart failure [facility] [place] [facility]* Diagnosis Pre-op evaluation- Primary Preoperative examination, unspecified H/O prostatectomy Other postprocedural status Essential hypertension Unspecified essential hypertension Stented coronary artery Postsurgical percutaneous transluminal coronary angioplasty status VANESSA (obstructive sleep apnea) Obstructive sleep apnea (adult) (pediatric) Stage 3a chronic kidney disease (HCC) Right inguinal hernia Inguinal hernia without mention of obstruction or gangrene, unilateral or unspecified, (not specified as recurrent) Bronchiolar disease Other diseases of trachea and bronchus Other ascites Post-operative pain- Primary Other acute postoperative pain Cirrhosis (HCC) Cirrhosis of liver without mention of alcohol VANESSA (obstructive sleep apnea) Obstructive sleep apnea (adult) (pediatric) Liver transplant recipient (HCC) 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 Vitamin D deficiency Unspecified vitamin D deficiency Coronary artery 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 artery of [place] heart without angina pectoris- Primary Chronic diastolic congestive heart failure (HCC) Chronic diastolic heart failure Primary hypertension Unspecified essential hypertension Mixed hyperlipidemia documented in this encounter [facility] note* Diagnosis Pre-op evaluation- Primary Preoperative examination, unspecified H/O prostatectomy Other postprocedural status Essential hypertension Unspecified essential hypertension Stented coronary artery Postsurgical percutaneous transluminal coronary angioplasty status VANESSA (obstructive sleep apnea) Obstructive sleep apnea (adult) (pediatric) Stage 3a chronic kidney disease (HCC) Right inguinal hernia Inguinal hernia without mention of obstruction or gangrene, unilateral or unspecified, (not specified as recurrent) Bronchiolar disease Other diseases of trachea and bronchus Other ascites Post-operative pain- Primary Other acute postoperative pain Cirrhosis (HCC) Cirrhosis of liver without mention of alcohol VANESSA (obstructive sleep apnea) Obstructive sleep apnea (adult) (pediatric) Liver transplant recipient (HCC) 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 Vitamin D deficiency Unspecified vitamin D deficiency Osteopenia of multiple sites- Primary Mixed hyperlipidemia Primary hypertension Unspecified essential hypertension Stage 3a chronic kidney disease (HCC) Liver transplant recipient (HCC) [facility]* Diagnosis Pre-op evaluation- Primary Preoperative examination, unspecified H/O prostatectomy Other postprocedural status Essential hypertension Unspecified essential hypertension Stented coronary artery Postsurgical percutaneous transluminal coronary angioplasty status VANESSA (obstructive sleep apnea) Obstructive sleep apnea (adult) (pediatric) Stage 3a chronic kidney disease (HCC) Right inguinal hernia Inguinal hernia without mention of obstruction or gangrene, unilateral or unspecified, (not specified as recurrent) Bronchiolar disease Other diseases of trachea and bronchus Other ascites Post-operative pain- Primary Other acute postoperative pain Cirrhosis (HCC) Cirrhosis of liver without mention of alcohol VANESSA (obstructive sleep apnea) Obstructive sleep apnea (adult) (pediatric) Liver transplant recipient (HCC) 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 Vitamin D deficiency Unspecified vitamin D deficiency Liver replaced by transplant (HCC)- Primary Liver replaced by transplant documented in this encounter [facility] note* Diagnosis Pre-op evaluation- Primary Preoperative examination, unspecified H/O prostatectomy Other postprocedural status Essential hypertension Unspecified essential hypertension Stented coronary artery Postsurgical percutaneous transluminal coronary angioplasty status VANESSA (obstructive sleep apnea) Obstructive sleep apnea (adult) (pediatric) Stage 3a chronic kidney disease (HCC) Right inguinal hernia Inguinal hernia without mention of obstruction or gangrene, unilateral or unspecified, (not specified as recurrent) Bronchiolar disease Other diseases of trachea and bronchus Other ascites Post-operative pain- Primary Other acute postoperative pain Cirrhosis (HCC) Cirrhosis of liver without mention of alcohol VANESSA (obstructive sleep apnea) Obstructive sleep apnea (adult) (pediatric) Liver transplant recipient (HCC) 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 Vitamin D deficiency Unspecified vitamin D deficiency Primary hypertension- Primary Unspecified essential hypertension [facility]* Diagnosis Pre-op evaluation- Primary Preoperative examination, unspecified H/O prostatectomy Other postprocedural status Essential hypertension Unspecified essential hypertension Stented coronary artery Postsurgical percutaneous transluminal coronary angioplasty status VANESSA (obstructive sleep apnea) Obstructive sleep apnea (adult) (pediatric) Stage 3a chronic kidney disease (HCC) Right inguinal hernia Inguinal hernia without mention of obstruction or gangrene, unilateral or unspecified, (not specified as recurrent) Bronchiolar disease Other diseases of trachea and bronchus Other ascites Post-operative pain- Primary Other acute postoperative pain Cirrhosis (HCC) Cirrhosis of liver without mention of alcohol VANESSA (obstructive sleep apnea) Obstructive sleep apnea (adult) (pediatric) Liver transplant recipient (HCC) 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 Vitamin D deficiency Unspecified vitamin D deficiency Coronary artery 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 artery of [place] heart without angina pectoris- Primary Chronic diastolic congestive heart failure (HCC) Chronic diastolic heart failure Primary hypertension Unspecified essential hypertension Mixed hyperlipidemia Chronic right-sided heart failure (HCC) Congestive heart failure, unspecified Screen for colon cancer- Primary Special screening for malignant neoplasms, colon History of colonic polyps Personal history of colonic polyps [facility] [place] [facility]* Diagnosis Pre-op evaluation- Primary Preoperative examination, unspecified H/O prostatectomy Other postprocedural status Essential hypertension Unspecified essential hypertension Stented coronary artery Postsurgical percutaneous transluminal coronary angioplasty status VANESSA (obstructive sleep apnea) Obstructive sleep apnea (adult) (pediatric) Stage 3a chronic kidney disease (HCC) Right inguinal hernia Inguinal hernia without mention of obstruction or gangrene, unilateral or unspecified, (not specified as recurrent) Bronchiolar disease Other diseases of trachea and bronchus Other ascites Post-operative pain- Primary Other acute postoperative pain Cirrhosis (HCC) Cirrhosis of liver without mention of alcohol VANESSA (obstructive sleep apnea) Obstructive sleep apnea (adult) (pediatric) Liver transplant recipient (HCC) 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 Vitamin D deficiency Unspecified vitamin D deficiency Screen for colon cancer- Primary Special screening for malignant neoplasms, colon History of colonic polyps Personal history of colonic polyps documented in this encounter [facility] note* Diagnosis Pre-op evaluation- Primary Preoperative examination, unspecified H/O prostatectomy Other postprocedural status Essential hypertension Unspecified essential hypertension Stented coronary artery Postsurgical percutaneous transluminal coronary angioplasty status VANESSA (obstructive sleep apnea) Obstructive sleep apnea (adult) (pediatric) Stage 3a chronic kidney disease (HCC) Right inguinal hernia Inguinal hernia without mention of obstruction or gangrene, unilateral or unspecified, (not specified as recurrent) Bronchiolar disease Other diseases of trachea and bronchus Other ascites Post-operative pain- Primary Other acute postoperative pain Cirrhosis (HCC) Cirrhosis of liver without mention of alcohol VANESSA (obstructive sleep apnea) Obstructive sleep apnea (adult) (pediatric) Liver transplant recipient (HCC) 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 Vitamin D deficiency Unspecified vitamin D deficiency Liver transplanted (HCC)- Primary Liver replaced by transplant documented in this encounter [facility] note* Diagnosis Pre-op evaluation- Primary Preoperative examination, unspecified H/O prostatectomy Other postprocedural status Essential hypertension Unspecified essential hypertension Stented coronary artery Postsurgical percutaneous transluminal coronary angioplasty status VANESSA (obstructive sleep apnea) Obstructive sleep apnea (adult) (pediatric) Stage 3a chronic kidney disease (HCC) Right inguinal hernia Inguinal hernia without mention of obstruction or gangrene, unilateral or unspecified, (not specified as recurrent) Bronchiolar disease Other diseases of trachea and bronchus Other ascites Post-operative pain- Primary Other acute postoperative pain Cirrhosis (HCC) Cirrhosis of liver without mention of alcohol VANESSA (obstructive sleep apnea) Obstructive sleep apnea (adult) (pediatric) Liver transplant recipient (HCC) 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 Vitamin D deficiency Unspecified vitamin D deficiency VANESSA (obstructive sleep apnea)- Primary Obstructive sleep apnea (adult) (pediatric) Obesity, Class I, BMI 30-34.9 Obesity, unspecified Coronary artery 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 artery of [place] heart without angina pectoris Chronic diastolic congestive heart failure (HCC) Chronic diastolic heart failure Right-sided heart failure, unspecified HF chronicity (HCC) Primary hypertension Unspecified essential hypertension Mixed hyperlipidemia History of cirrhosis Personal history of other diseases of digestive system Liver transplant recipient (HCC) 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 Stage 3a chronic kidney disease (HCC) [facility] [place] [facility]* Diagnosis Pre-op evaluation- Primary Preoperative examination, unspecified H/O prostatectomy Other postprocedural status Essential hypertension Unspecified essential hypertension Stented coronary artery Postsurgical percutaneous transluminal coronary angioplasty status VANESSA (obstructive sleep apnea) Obstructive sleep apnea (adult) (pediatric) Stage 3a chronic kidney disease (HCC) Right inguinal hernia Inguinal hernia without mention of obstruction or gangrene, unilateral or unspecified, (not specified as recurrent) Bronchiolar disease Other diseases of trachea and bronchus Other ascites Post-operative pain- Primary Other acute postoperative pain Cirrhosis (HCC) Cirrhosis of liver without mention of alcohol VANESSA (obstructive sleep apnea) Obstructive sleep apnea (adult) (pediatric) Liver transplant recipient (HCC) 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 Vitamin D deficiency Unspecified vitamin D deficiency Medicare annual wellness visit, subsequent- Primary Routine general medical examination at a health care facility Chronic diastolic congestive heart failure (HCC) Chronic diastolic heart failure Screening for depression Encounter for screening examination for other mental health and behavioral disorders Primary hypertension Unspecified essential hypertension Coronary 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 [place] [facility]* Diagnosis Pre-op evaluation- Primary Preoperative examination, unspecified H/O prostatectomy Other postprocedural status Essential hypertension Unspecified essential hypertension Stented coronary artery Postsurgical percutaneous transluminal coronary angioplasty status VANESSA (obstructive sleep apnea) Obstructive sleep apnea (adult) (pediatric) Stage 3a chronic kidney disease (HCC) Right inguinal hernia Inguinal hernia without mention of obstruction or gangrene, unilateral or unspecified, (not specified as recurrent) Bronchiolar disease Other diseases of trachea and bronchus Other ascites Post-operative pain- Primary Other acute postoperative pain Cirrhosis (HCC) Cirrhosis of liver without mention of alcohol VANESSA (obstructive sleep apnea) Obstructive sleep apnea (adult) (pediatric) Liver transplant recipient (HCC) 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 Vitamin D deficiency Unspecified vitamin D deficiency Screen for colon cancer Special screening for malignant neoplasms, colon History of colonic polyps Personal history of colonic polyps documented in this encounter [facility] Plan of care note* Visit Details Visit Type -SN SOC Discipline -Assisted Problems Problem Description Start Date Status Goals Interve ntions Medication Education Disciplines: Skilled Services 04/09/2023 Active 1 goal linked to scheduled/document ed intervention 1 goal intervention scheduled/documente d in this visit Sepsis Disciplines: Skilled Services 04/09/2023 Active 1 goal linked to scheduled/document ed intervention 1 goal intervention scheduled/documente d in this visit Post-Transplant Disciplines: Skilled Services 04/09/2023 Active 1 goal linked to scheduled/document ed intervention 1 goal intervention scheduled/documente d in this visit Physician Specific Parameters Disciplines: Skilled Services 04/09/2023 Active 1 goal linked to scheduled/document ed intervention 1 goal intervention scheduled/documente d in this visit Risk for Falls Disciplines: Skilled Services 04/09/2023 Active 1 goal linked to scheduled/document ed intervention 1 goal intervention scheduled/documente d in this visit Pain Disciplines: Skilled Services 04/09/2023 Active 1 goal linked to scheduled/document ed intervention 1 goal intervention scheduled/documente d in this visit High Risk Medications Disciplines: Skilled Services 04/09/2023 Active 1 goal linked to scheduled/document ed intervention 2 goal interventions scheduled/documente d in this visit Discharge Disciplines: Skilled Services 04/09/2023 Active 1 goal linked to scheduled/document ed intervention 1 goal intervention scheduled/documente d in this visit Advance Directives Disciplines: Skilled Services 04/09/2023 Active 1 goal linked to scheduled/document ed intervention 1 goal intervention scheduled/documente d in this visit SN Edema Disciplines: SN 04/09/2023 Active 1 goal linked to scheduled/document ed intervention 1 goal intervention scheduled/documente d in this visit SN Integumentary/W ounds Disciplines: 04/09/2023 Active 1 goal linked to scheduled/document ed intervention 1 goal intervention scheduled/documente d in this visit SN Learning Assessment Disciplines: 04/09/2023 Active 1 goal linked to scheduled/document ed intervention 1 goal intervention scheduled/documente d in this visit Goals Goal Associated Problem Outcome Goal Met? Visit Notes Patient/caregiver will demonstrate ability to obtain, store, identify and administer ordered medications, keep accurate medication list in home, and adhere to medication schedule Description: Patient/caregiver will demonstrate ability to obtain, store, identify and administer ordered medications, keep accurate medication list in home, and adhere to medication schedule by 06/07/23. Medication Education No Patient/caregiver will be able to identify and report symptoms of sepsis Description: Patient/caregiver will be able to identify signs/symptoms of sepsis infection and will verbalize actions to take if suspected by 06/07/23. Sepsis No Patient will have uncomplicated recovery after transplant Description: Patient and/or caregiver will verbalize and/or demonstrate understanding of post-transplant precautions, complications, and self-management to be achieved by 06/07/23. Post-Transplant No Patient to maintain parameters within physician-specified ranges throughout certification period Physician Specific Parameters No Manage Risk for falls Description: Patient/caregiver will verbalize knowledge of individualized fall prevention strategies by 05/01/23. Risk for Falls No Manage Pain Description: Patient/caregiver will verbalize knowledge and understanding of appropriate techniques to control pain, including pain medication and non-pharmacological techniques. Patient will verbalize or demonstrate an acceptable level of pain as evidenced by a pain score of 0/10 and improvement in ability to perform activities of daily living to be achieved by 06/07/23. Pain No Patient/caregiver will teach back high risk medication side effect and precaution education High Risk Medications No Manage discharge planning Description: Patient/caregiver will verbalize understanding of ongoing discharge plan provided related to disease management, arrangements for outpatient and/or community services, obtaining medications, supplies, and DME, as needed throughout certification period. Discharge No Patient/caregiver will make healthcare providers aware of and any changes to Advance Directives throughout certification period Advance Directives No Patient will have improved edema management Description: Patient/caregiver will demonstrate an understanding of edema management strategies as evidenced by resolution or stabilization of edema by 05/01/23. SN Edema No Patient/Caregiver will have improved healing and be free of signs and symptoms of complications Description: Patient/caregiver will verbalize management strategies to promote wound healing & prevent complications as evidenced by improved healing & no complications by 05/01/23. SN Integumentary/Wounds No Demonstrate understanding of education Description: Patient and/or caregiver will verbalize understanding of educational instruction provided throughout certification period. SN Learning Assessment No Interventions Intervention Associated Problem/Goal Status Variance Visit Notes Medication Education Description: Evaluate/instruct patient/caregiver on obtaining, storing, identifying and administering ordered medications as well as keeping accurate medication list in the home and adhereing to medication schedule Problem:Medication Education Goal:Patient/caregive r will demonstrate ability to obtain, store, identify and administer ordered medications, keep accurate medication list in home, and adhere to medication schedule Completed Patient instructed on importance of keeping accurate medication list in home and adhering to medication schedule. Risk of Sepsis Description: Patient is at risk for sepsis. Monitor closely for s/s of sepsis. Problem:Sepsis Goal:Patient/caregive r will be able to identify and report symptoms of sepsis Completed Assess and instruct patient/caregiver on post-transplant precautions, complications, and self-management strategies Description: Instruct patient/caregiver on after-care for Liver transplant. Problem:Post-Transpla nt Goal:Patient will have uncomplicated recovery after transplant Completed Patient instructed on preventing infection, signs and symptoms of post-transplant infection, diet, post-op surgical precautions, anti-rejection medications, importance of lab studies, maintaining log for weight and vital signs and when to contact the post-transplant team as referred to in post-transplant binder. SPO2 Description: Notify Dr. Landry if pulse ox is <92% at rest. Problem:Physician Specific Parameters Goal:Patient to maintain parameters within physician-specified ranges throughout certification period Completed Instruct on individual fall risk factors and strategies to prevent falls and injuries caused by falls. Problem:Risk for Falls Goal:Manage Risk for falls Completed SN: Patient instructed on Managing Impaired Functional Mobility: Use assistive device(s): front wheeled walker and Caregiver to provide assist with: Ambulation, Steps, Transfers and ADL/IADLs Instruct on pain and instruct on strategies to control pain Problem:Pain Goal:Manage Pain Completed patient instructed on techniques to control pain including Pharmacological measures and Non-Pharmacological measures; rest and distraction. Opioids- educated on high risk medication Problem:High Risk Medications Goal:Patient/caregive r will teach back high risk medication side effect and precaution education Completed patient educated on taking medication(s) as prescribed by provider. Do not stop medication or alter doses without speaking with your provider. Discuss medication effectiveness or side effect concerns with your provider and home care team. Only take opioids as prescribed, do not share your medications, and take proper precautions in storing and properly disposing of opioids once no longer needed. Possible side effects of opioid medication including sedation, decreased rate of breathing, and constipation. Report over sedation to prescribing provider and practice deep breathing techniques every hour while awake. Prevent constipation by increasing water and fiber intake, increasing activity as tolerated, and use stool softener(s) as prescribed. Antiplatelet- educated on high risk medication Problem:High Risk Medications Goal:Patient/caregive r will teach back high risk medication side effect and precaution education Completed patient educated on taking medication(s) as prescribed by provider. Do not stop medication or alter doses without speaking with your provider. Discuss medication effectiveness or side effect concerns with your provider and home care team. Discuss all medications you are taking, even [id number] medicines, with your provider and pharmacist since many drugs can interact with antiplatelet medications. If you forget to take a dose, DO NOT take a double dose. Take the missed dose as soon as possible on the same day. DO NOT take a double dose the next day to make up for the missed dose. Watch for signs of abnormal or excessive bleeding and bruising (refer to Bleeding Precautions education). Call your health care provider right away if you suspect something is wrong. Instruct on ongoing discharge plan Problem:Discharge Goal:Manage discharge planning Completed Ongoing Discharge plan: Discharge plan discussed with patient including frequency and duration for home SN and plan for transition to: live independently at home. Determine patient's Advance Directive Status Description: Patient does have advance directives. Patient's Advance Directives determined to be available in Home and EMR Healthcare DPOA and Living Will. Problem:Advance Directives Goal:Patient/caregive r will make healthcare providers aware of and any changes to Advance Directives throughout certification period Completed Discussed Advance Directives with Patient and/or Caregiver. Referred patient to Home Care handbook for further information on Healthcare DPOA & Living Will. Assess and instruct on measures to reduce edema Problem:SN Edema Goal:Patient will have improved edema management Completed patient instructed on elevation, medication compliance and benefits of activity. Instruct patient/caregiver healing process and management measures to promote healing and avoid complications Problem:SN Integumentary/Wounds Goal:Patient/Caregive r will have improved healing and be free of signs and symptoms of complications Completed patient instructed on the following: healing process, signs and symptoms of infection and importance of good nutrition. Instruct and educate on knowledge deficits Problem:SN Learning Assessment Goal:Demonstrate understanding of education Completed patient verbalize and/or demonstrate understanding of nursing education completed today. Education methods include: verbal cues. Further education required to improve knowledge and compliance with fall prevention/home safety strategies, incision/wound care management, medication management, nutrition, pain management and surgical care precautions. documented in this encounter [facility]'s home Plan of care note* Visit Details Visit Type -SN ROUTINE Discipline -Assisted Problems Problem Description Start Date Status Goals Interve ntions Medication Education Disciplines: Skilled Services 04/09/2023 Active 1 goal linked to scheduled/document ed intervention 1 goal intervention scheduled/documente d in this visit Sepsis Disciplines: Skilled Services 04/09/2023 Active 1 goal linked to scheduled/document ed intervention 1 goal intervention scheduled/documente d in this visit Post-Transplant Disciplines: Skilled Services 04/09/2023 Active 1 goal linked to scheduled/document ed intervention 1 goal intervention scheduled/documente d in this visit Physician Specific Parameters Disciplines: Skilled Services 04/09/2023 Active 1 goal linked to scheduled/document ed intervention 1 goal intervention scheduled/documente d in this visit Risk for Falls Disciplines: Skilled Services 04/09/2023 Active 1 goal linked to scheduled/document ed intervention 1 goal intervention scheduled/documente d in this visit Pain Disciplines: Skilled Services 04/09/2023 Active 1 goal linked to scheduled/document ed intervention 1 goal intervention scheduled/documente d in this visit High Risk Medications Disciplines: Skilled Services 04/09/2023 Active 1 goal linked to scheduled/document ed intervention 2 goal interventions scheduled/documente d in this visit Discharge Disciplines: Skilled Services 04/09/2023 Active 1 goal linked to scheduled/document ed intervention 1 goal intervention scheduled/documente d in this visit Advance Directives Disciplines: Skilled Services 04/09/2023 Active 1 goal linked to scheduled/document ed intervention 1 goal intervention scheduled/documente d in this visit SN Edema Disciplines: SN 04/09/2023 Active 1 goal linked to scheduled/document ed intervention 1 goal intervention scheduled/documente d in this visit Integumentary/W ounds Disciplines: 04/09/2023 Active 1 goal linked to scheduled/document ed intervention 2 goal interventions scheduled/documente d in this visit SN Learning Assessment Disciplines: 04/09/2023 Active 1 goal linked to scheduled/document ed intervention 1 goal intervention scheduled/documente d in this visit Goals Goal Associated Problem Outcome Goal Met? Visit Notes Patient/caregiver will demonstrate ability to obtain, store, identify and administer ordered medications, keep accurate medication list in home, and adhere to medication schedule Description: Patient/caregiver will demonstrate ability to obtain, store, identify and administer ordered medications, keep accurate medication list in home, and adhere to medication schedule by 06/07/23. Medication Education No Patient/caregiver will be able to identify and report symptoms of sepsis Description: Patient/caregiver will be able to identify signs/symptoms of sepsis infection and will verbalize actions to take if suspected by 06/07/23. Sepsis No Patient will have uncomplicated recovery after transplant Description: Patient and/or caregiver will verbalize and/or demonstrate understanding of post-transplant precautions, complications, and self-management to be achieved by 06/07/23. Post-Transplant No Patient to maintain parameters within physician-specified ranges throughout certification period Physician Specific Parameters No Manage Risk for falls Description: Patient/caregiver will verbalize knowledge of individualized fall prevention strategies by 05/01/23. Risk for Falls No Manage Pain Description: Patient/caregiver will verbalize knowledge and understanding of appropriate techniques to control pain, including pain medication and non-pharmacological techniques. Patient will verbalize or demonstrate an acceptable level of pain as evidenced by a pain score of 0/10 and improvement in ability to perform activities of daily living to be achieved by 06/07/23. Pain No Patient/caregiver will teach back high risk medication side effect and precaution education High Risk Medications No Manage discharge planning Description: Patient/caregiver will verbalize understanding of ongoing discharge plan provided related to disease management, arrangements for outpatient and/or community services, obtaining medications, supplies, and DME, as needed throughout certification period. Discharge No Patient/caregiver will make healthcare providers aware of and any changes to Advance Directives throughout certification period Advance Directives No Patient will have improved edema management Description: Patient/caregiver will demonstrate an understanding of edema management strategies as evidenced by resolution or stabilization of edema by 05/01/23. SN Edema No Patient/Caregiver will have improved healing and be free of signs and symptoms of complications Description: Patient/caregiver will verbalize management strategies to promote wound healing & prevent complications as evidenced by improved healing & no complications by 05/01/23. SN Integumentary/Wounds No Demonstrate understanding of education Description: Patient and/or caregiver will verbalize understanding of educational instruction provided throughout certification period. SN Learning Assessment No Interventions Intervention Associated Problem/Goal Status Variance Visit Notes Medication Education Description: Evaluate/instruct patient/caregiver on obtaining, storing, identifying and administering ordered medications as well as keeping accurate medication list in the home and adhereing to medication schedule Problem:Medication Education Goal:Patient/caregive r will demonstrate ability to obtain, store, identify and administer ordered medications, keep accurate medication list in home, and adhere to medication schedule Completed Patient instructed on importance of keeping accurate medication list in home, adhering to medication schedule and proper storage of medications. Risk of Sepsis Description: Patient is at risk for sepsis. Monitor closely for s/s of sepsis. Problem:Sepsis Goal:Patient/caregive r will be able to identify and report symptoms of sepsis Completed Assess and instruct patient/caregiver on post-transplant precautions, complications, and self-management strategies Description: Instruct patient/caregiver on after-care for Liver transplant. Problem:Post-Transpla nt Goal:Patient will have uncomplicated recovery after transplant Completed Patient instructed on preventing infection, signs and symptoms of organ rejection fever, increased pain, lethargy, flu-like symptoms, edema and shortness of breath, signs and symptoms of post-transplant infection, post-transplant activity guidelines, diet, post-op surgical precautions, anti-rejection medications and importance of lab studies as referred to in post-transplant binder. SPO2 Description: Notify Dr. Lanrdy if pulse ox is <92% at rest. Problem:Physician Specific Parameters Goal:Patient to maintain parameters within physician-specified ranges throughout certification period Completed Instruct on individual fall risk factors and strategies to prevent falls and injuries caused by falls. Problem:Risk for Falls Goal:Manage Risk for falls Completed SN: Patient instructed on Eliminating Environmental Hazards: Keep pathways clear, Keep pets out of pathways, Keep rooms and walkways well lit, Wear supportive shoes or non-skid socks and Keep frequently used items within reach Instruct on pain and instruct on strategies to control pain Problem:Pain Goal:Manage Pain Completed patient instructed on techniques to control pain including Pharmacological measures and Non-Pharmacological measures; rest, positioning/elevation, mobility/therapeutic exercise, distraction, breathing/relaxation and use of DME/assistive devices. Opioids- educated on high risk medication Problem:High Risk Medications Goal:Patient/caregive r will teach back high risk medication side effect and precaution education Completed patient educated on taking medication(s) as prescribed by provider. Do not stop medication or alter doses without speaking with your provider. Discuss medication effectiveness or side effect concerns with your provider and home care team. Only take opioids as prescribed, do not share your medications, and take proper precautions in storing and properly disposing of opioids once no longer needed. Possible side effects of opioid medication including sedation, decreased rate of breathing, and constipation. Report over sedation to prescribing provider and practice deep breathing techniques every hour while awake. Prevent constipation by increasing water and fiber intake, increasing activity as tolerated, and use stool softener(s) as prescribed. Antiplatelet- educated on high risk medication Problem:High Risk Medications Goal:Patient/caregive r will teach back high risk medication side effect and precaution education Completed patient educated on taking medication(s) as prescribed by provider. Do not stop medication or alter doses without speaking with your provider. Discuss medication effectiveness or side effect concerns with your provider and home care team. Discuss all medications you are taking, even [id number] medicines, with your provider and pharmacist since many drugs can interact with antiplatelet medications. If you forget to take a dose, DO NOT take a double dose. Take the missed dose as soon as possible on the same day. DO NOT take a double dose the next day to make up for the missed dose. Watch for signs of abnormal or excessive bleeding and bruising (refer to Bleeding Precautions education). Call your health care provider right away if you suspect something is wrong. Instruct on ongoing discharge plan Problem:Discharge Goal:Manage discharge planning Completed Ongoing Discharge plan: Discharge plan discussed with patient including frequency and duration for home SN and plan for transition to: caregiver assistance. Determine patient's Advance Directive Status Description: Patient does have advance directives. Patient's Advance Directives determined to be available in Home and EMR Healthcare DPOA and Living Will. Problem:Advance Directives Goal:Patient/caregive r will make healthcare providers aware of and any changes to Advance Directives throughout certification period Completed Discussed Advance Directives with Patient and/or Caregiver. Referred patient to Home Care handbook for further information on Healthcare DPOA & Living Will. Assess and instruct on measures to reduce edema Problem:SN Edema Goal:Patient will have improved edema management Completed patient instructed on elevation, compression, diet and medication compliance. Instruct patient/caregiver healing process and management measures to promote healing and avoid complications Problem:SN Integumentary/Wounds Goal:Patient/Caregive r will have improved healing and be free of signs and symptoms of complications Completed patient instructed on the following: healing process, signs and symptoms of infection, importance of good nutrition and when to report symptoms. Instruct Patient/Caregiver on wound/incision care procedure as ordered by physician Problem:SN Integumentary/Wounds Goal:Patient/Caregive r will have improved healing and be free of signs and symptoms of complications Completed patient instructed on and return demonstrated wound care as ordered by Physician. Instruct and educate on knowledge deficits Problem:SN Learning Assessment Goal:Demonstrate understanding of education Completed patient verbalize and/or demonstrate understanding of nursing education completed today. Education methods include: verbal cues and teach back. Further education required to improve knowledge and compliance with fall prevention/home safety strategies and incision/wound care management. documented in this encounter [facility]'s home Plan of care note* Visit Details Visit Type -PT EVAL Discipline -Physical Therapy Problems Problem Description Start Date Status Goals Interve ntions Sepsis Disciplines: Skilled Services 04/09/2023 Active 1 goal linked to scheduled/document ed intervention 1 goal intervention scheduled/document ed in this visit PT Referral Disciplines: Skilled Services 04/09/2023 Resolved on 04/14/2023 1 goal linked to scheduled/document ed intervention 1 goal intervention scheduled/document ed in this visit Physician Specific Parameters Disciplines: Skilled Services 04/09/2023 Active 1 goal linked to scheduled/document ed intervention 1 goal intervention scheduled/document ed in this visit Risk for Falls Disciplines: Skilled Services 04/09/2023 Active 1 goal linked to scheduled/document ed intervention 1 goal intervention scheduled/document ed in this visit PT Impaired Aerobic Capacity Disciplines: PT 04/14/2023 Resolved on 04/14/2023 1 goal linked to scheduled/document ed intervention 1 goal intervention scheduled/document ed in this visit PT Learning Assessment Disciplines: PT 04/14/2023 Resolved on 04/14/2023 1 goal linked to scheduled/document ed intervention 1 goal intervention scheduled/document ed in this visit Goals Goal Associated Problem Outcome Goal Met? Visit Notes Patient/caregiver will be able to identify and report symptoms of sepsis Description: Patient/caregiver will be able to identify signs/symptoms of sepsis infection and will verbalize actions to take if suspected by 06/07/23. Sepsis No Patient will be referred to additional discipline as needed PT Referral Completed Yes Patient to maintain parameters within physician-specified ranges throughout certification period Physician Specific Parameters No Manage Risk for falls Description: Patient/caregiver will verbalize knowledge of individualized fall prevention strategies by 05/01/23. Risk for Falls No Improved Aerobic Capacity Description: STG: Patient will demonstrate improved aerobic capacity to meet functional goals as evidenced by Rate of Percieved Exertion (RPE) of 3/10 during walking activity, to be achieved by 04/14/23. PT Impaired Aerobic Capacity Completed Yes Demonstrate understanding of education Description: Patient and/or caregiver will understand educational instruction to be achieved by 04/14/23. PT Learning Assessment Completed Yes Interventions Intervention Associated Problem/Goal Status Variance Visit Notes Risk of Sepsis Description: Patient is at risk for sepsis. Monitor closely for s/s of sepsis. Problem:Sepsis Goal:Patient/caregive r will be able to identify and report symptoms of sepsis Completed PT evaluation and treatment Description: Evaluate and treat for the assessment of functional deficits and establishment of appropriate interventions and education, including recommendations for functional mobility training, balance training for fall reduction, and strengthening. Problem:PT Referral Goal:Patient will be referred to additional discipline as needed Completed SPO2 Description: Notify Dr. Landry if pulse ox is <92% at rest. Problem:Physician Specific Parameters Goal:Patient to maintain parameters within physician-specified ranges throughout certification period Completed Instruct on individual fall risk factors and strategies to prevent falls and injuries caused by falls. Problem:Risk for Falls Goal:Manage Risk for falls Completed PT: Patient instructed on Eliminating Environmental Hazards: Keep pathways clear, Keep pets out of pathways, Remove unsafe rugs and Move furniture from pathways Physical Therapy Aerobic Capacity Training Problem:PT Impaired Aerobic Capacity Goal:Improved Aerobic Capacity Completed patient instructed on utilization of the Rate of Percieved Exertion (RPE) scale, to not exceed 3-6/10 indicating moderate to heavy intensity of activity. Developed, implemented, and instructed patient on physical therapy interventions completing 5-10 minutes of continuous and paced activity. Instruct and educate on knowledge deficits Problem:PT Learning Assessment Goal:Demonstrate understanding of education Completed patient verbalize and/or demonstrate understanding of physical therapy education including surgical precautions, pain management, fall prevention strategies, home safety, functional activity and home exercise program. Education methods include: verbal cues. documented in this encounter [facility]'s home Plan of care note* Visit Details Visit Type -SN ROUTINE Discipline -Assisted Problems Problem Description Start Date Status Goals Interve ntions Medication Education Disciplines: Skilled Services 04/09/2023 Active 1 goal linked to scheduled/document ed intervention 1 goal intervention scheduled/documente d in this visit Sepsis Disciplines: Skilled Services 04/09/2023 Active 1 goal linked to scheduled/document ed intervention 1 goal intervention scheduled/documente d in this visit Post-Transplant Disciplines: Skilled Services 04/09/2023 Active 1 goal linked to scheduled/document ed intervention 1 goal intervention scheduled/documente d in this visit Physician Specific Parameters Disciplines: Skilled Services 04/09/2023 Active 1 goal linked to scheduled/document ed intervention 1 goal intervention scheduled/documente d in this visit Risk for Falls Disciplines: Skilled Services 04/09/2023 Active 1 goal linked to scheduled/document ed intervention 1 goal intervention scheduled/documente d in this visit Pain Disciplines: Skilled Services 04/09/2023 Active 1 goal linked to scheduled/document ed intervention 1 goal intervention scheduled/documente d in this visit High Risk Medications Disciplines: Skilled Services 04/09/2023 Active 1 goal linked to scheduled/document ed intervention 2 goal interventions scheduled/documente d in this visit Discharge Disciplines: Skilled Services 04/09/2023 Active 1 goal linked to scheduled/document ed intervention 2 goal interventions scheduled/documente d in this visit Advance Directives Disciplines: Skilled Services 04/09/2023 Active 1 goal linked to scheduled/document ed intervention 1 goal intervention scheduled/documente d in this visit SN Integumentary/W ounds Disciplines: SN 04/09/2023 Active 1 goal linked to scheduled/document ed intervention 2 goal interventions scheduled/documente d in this visit Goals Goal Associated Problem Outcome Goal Met? Visit Notes Patient/caregiver will demonstrate ability to obtain, store, identify and administer ordered medications, keep accurate medication list in home, and adhere to medication schedule Description: Patient/caregiver will demonstrate ability to obtain, store, identify and administer ordered medications, keep accurate medication list in home, and adhere to medication schedule by 06/07/23. Medication Education No Patient/caregiver will be able to identify and report symptoms of sepsis Description: Patient/caregiver will be able to identify signs/symptoms of sepsis infection and will verbalize actions to take if suspected by 06/07/23. Sepsis No Patient will have uncomplicated recovery after transplant Description: Patient and/or caregiver will verbalize and/or demonstrate understanding of post-transplant precautions, complications, and self-management to be achieved by 06/07/23. Post-Transplant No Patient to maintain parameters within physician-specified ranges throughout certification period Physician Specific Parameters No Manage Risk for falls Description: Patient/caregiver will verbalize knowledge of individualized fall prevention strategies by 05/01/23. Risk for Falls No Manage Pain Description: Patient/caregiver will verbalize knowledge and understanding of appropriate techniques to control pain, including pain medication and non-pharmacological techniques. Patient will verbalize or demonstrate an acceptable level of pain as evidenced by a pain score of 0/10 and improvement in ability to perform activities of daily living to be achieved by 06/07/23. Pain No Patient/caregiver will teach back high risk medication side effect and precaution education High Risk Medications No Manage discharge planning Description: Patient/caregiver will verbalize understanding of ongoing discharge plan provided related to disease management, arrangements for outpatient and/or community services, obtaining medications, supplies, and DME, as needed throughout certification period. Discharge No Patient/caregiver will make healthcare providers aware of and any changes to Advance Directives throughout certification period Advance Directives No Patient/Caregiver will have improved healing and be free of signs and symptoms of complications Description: Patient/caregiver will verbalize management strategies to promote wound healing & prevent complications as evidenced by improved healing & no complications by 05/01/23. SN Integumentary/Wounds No Interventions Intervention Associated Problem/Goal Status Variance Visit Notes Medication Education Description: Evaluate/instruct patient/caregiver on obtaining, storing, identifying and administering ordered medications as well as keeping accurate medication list in the home and adhereing to medication schedule Problem:Medication Education Goal:Patient/caregive r will demonstrate ability to obtain, store, identify and administer ordered medications, keep accurate medication list in home, and adhere to medication schedule Completed Patient instructed on importance of keeping accurate medication list in home, adhering to medication schedule and proper storage of medications. Risk of Sepsis Description: Patient is at risk for sepsis. Monitor closely for s/s of sepsis. Problem:Sepsis Goal:Patient/caregive r will be able to identify and report symptoms of sepsis Completed Assess and instruct patient/caregiver on post-transplant precautions, complications, and self-management strategies Description: Instruct patient/caregiver on after-care for Liver transplant. Problem:Post-Transpla nt Goal:Patient will have uncomplicated recovery after transplant Completed Patient instructed on preventing infection, signs and symptoms of organ rejection fever, increased pain, lethargy, flu-like symptoms, edema and shortness of breath, signs and symptoms of post-transplant infection, post-transplant activity guidelines, diet, post-op surgical precautions, anti-rejection medications, importance of lab studies and when to contact the post-transplant team as referred to in post-transplant binder. SPO2 Description: Notify Dr. Landry if pulse ox is <92% at rest. Problem:Physician Specific Parameters Goal:Patient to maintain parameters within physician-specified ranges throughout certification period Completed Instruct on individual fall risk factors and strategies to prevent falls and injuries caused by falls. Problem:Risk for Falls Goal:Manage Risk for falls Completed SN: Patient instructed on Eliminating Environmental Hazards: Keep pathways clear, Keep pets out of pathways, Keep rooms and walkways well lit, Wear supportive shoes or non-skid socks and Keep frequently used items within reach Instruct on pain and instruct on strategies to control pain Problem:Pain Goal:Manage Pain Completed patient instructed on techniques to control pain including Pharmacological measures and Non-Pharmacological measures; rest, positioning/elevation, distraction and breathing/relaxation. Opioids- educated on high risk medication Problem:High Risk Medications Goal:Patient/caregive r will teach back high risk medication side effect and precaution education Completed patient educated on taking medication(s) as prescribed by provider. Do not stop medication or alter doses without speaking with your provider. Discuss medication effectiveness or side effect concerns with your provider and home care team. Only take opioids as prescribed, do not share your medications, and take proper precautions in storing and properly disposing of opioids once no longer needed. Possible side effects of opioid medication including sedation, decreased rate of breathing, and constipation. Report over sedation to prescribing provider and practice deep breathing techniques every hour while awake. Prevent constipation by increasing water and fiber intake, increasing activity as tolerated, and use stool softener(s) as prescribed. Antiplatelet- educated on high risk medication Problem:High Risk Medications Goal:Patient/caregive r will teach back high risk medication side effect and precaution education Completed patient educated on taking medication(s) as prescribed by provider. Do not stop medication or alter doses without speaking with your provider. Discuss medication effectiveness or side effect concerns with your provider and home care team. Discuss all medications you are taking, even [id number] medicines, with your provider and pharmacist since many drugs can interact with antiplatelet medications. If you forget to take a dose, DO NOT take a double dose. Take the missed dose as soon as possible on the same day. DO NOT take a double dose the next day to make up for the missed dose. Watch for signs of abnormal or excessive bleeding and bruising (refer to Bleeding Precautions education). Call your health care provider right away if you suspect something is wrong. Deliver NOMNC Problem:Discharge Goal:Manage discharge planning Completed Delivered NOMNC on 04-26-23 for discharge date of 05-01-23. Instruct on ongoing discharge plan Problem:Discharge Goal:Manage discharge planning Completed Ongoing Discharge plan: Discharge plan discussed with patient including frequency and duration for home SN and plan for transition to: caregiver assistance. Determine patient's Advance Directive Status Description: Patient does have advance directives. Patient's Advance Directives determined to be available in Home and EMR Healthcare DPOA and Living Will. Problem:Advance Directives Goal:Patient/caregive r will make healthcare providers aware of and any changes to Advance Directives throughout certification period Completed Discussed Advance Directives with Patient and/or Caregiver. Referred patient to Home Care handbook for further information on Healthcare DPOA & Living Will. Instruct patient/caregiver healing process and management measures to promote healing and avoid complications Problem:SN Integumentary/Wounds Goal:Patient/Caregive r will have improved healing and be free of signs and symptoms of complications Completed patient instructed on the following: healing process, signs and symptoms of infection, importance of good nutrition and when to report symptoms. Instruct Patient/Caregiver on wound/incision care procedure as ordered by physician Problem:SN Integumentary/Wounds Goal:Patient/Caregive r will have improved healing and be free of signs and symptoms of complications Completed patient instructed on and return demonstrated wound care as ordered by Physician. documented in this encounter [facility]'s home Plan of care note* Visit Details Visit Type -SN AGENCY DC W V ISIT Discipline -Assisted Problems Problem Description Start Date Status Goals Interve ntions Medication Education Disciplines: Skilled Services 04/09/2023 Resolved on 05/01/2023 1 goal linked to scheduled/document ed intervention 1 goal intervention scheduled/document ed in this visit Sepsis Disciplines: Skilled Services 04/09/2023 Resolved on 05/01/2023 1 goal linked to scheduled/document ed intervention 1 goal intervention scheduled/document ed in this visit Post-Transplan t Disciplines: Skilled Services 04/09/2023 Resolved on 05/01/2023 1 goal linked to scheduled/document ed intervention 1 goal intervention scheduled/document ed in this visit Physician Specific Parameters Disciplines: Skilled Services 04/09/2023 Resolved on 05/01/2023 1 goal linked to scheduled/document ed intervention 1 goal intervention scheduled/document ed in this visit Risk for Falls Disciplines: Skilled Services 04/09/2023 Resolved on 05/01/2023 1 goal linked to scheduled/document ed intervention 1 goal intervention scheduled/document ed in this visit Pain Disciplines: Skilled Services 04/09/2023 Resolved on 05/01/2023 1 goal linked to scheduled/document ed intervention 1 goal intervention scheduled/document ed in this visit High Risk Medications Disciplines: Skilled Services 04/09/2023 Resolved on 05/01/2023 1 goal linked to scheduled/document ed intervention 2 goal interventions scheduled/document ed in this visit Discharge Disciplines: Skilled Services 04/09/2023 Resolved on 05/01/2023 1 goal linked to scheduled/document ed intervention 2 goal interventions scheduled/document ed in this visit Advance Directives Disciplines: Skilled Services 04/09/2023 Resolved on 05/01/2023 1 goal linked to scheduled/document ed intervention 1 goal intervention scheduled/document ed in this visit SN Edema Disciplines: SN 04/09/2023 Resolved on 05/01/2023 1 goal linked to scheduled/document ed intervention 1 goal intervention scheduled/document ed in this visit SN Integumentary/ Wounds Disciplines: SN 04/09/2023 Resolved on 05/01/2023 1 goal linked to scheduled/document ed intervention 2 goal interventions scheduled/document ed in this visit SN Learning Assessment Disciplines: SN 04/09/2023 Resolved on 05/01/2023 1 goal linked to scheduled/document ed intervention 1 goal intervention scheduled/document ed in this visit Goals Goal Associated Problem Outcome Goal Met? Visit Notes Patient/caregiver will demonstrate ability to obtain, store, identify and administer ordered medications, keep accurate medication list in home, and adhere to medication schedule Description: Patient/caregiver will demonstrate ability to obtain, store, identify and administer ordered medications, keep accurate medication list in home, and adhere to medication schedule by 06/07/23. Medication Education Completed Yes Patient/caregiver will be able to identify and report symptoms of sepsis Description: Patient/caregiver will be able to identify signs/symptoms of sepsis infection and will verbalize actions to take if suspected by 06/07/23. Sepsis Completed Yes Patient will have uncomplicated recovery after transplant Description: Patient and/or caregiver will verbalize and/or demonstrate understanding of post-transplant precautions, complications, and self-management to be achieved by 06/07/23. Post-Transplant Completed Yes Patient to maintain parameters within physician-specified ranges throughout certification period Physician Specific Parameters Completed Yes Manage Risk for falls Description: Patient/caregiver will verbalize knowledge of individualized fall prevention strategies by 05/01/23. Risk for Falls Completed Yes Manage Pain Description: Patient/caregiver will verbalize knowledge and understanding of appropriate techniques to control pain, including pain medication and non-pharmacological techniques. Patient will verbalize or demonstrate an acceptable level of pain as evidenced by a pain score of 0/10 and improvement in ability to perform activities of daily living to be achieved by 06/07/23. Pain Completed Yes Patient/caregiver will teach back high risk medication side effect and precaution education High Risk Medications Completed Yes Manage discharge planning Description: Patient/caregiver will verbalize understanding of ongoing discharge plan provided related to disease management, arrangements for outpatient and/or community services, obtaining medications, supplies, and DME, as needed throughout certification period. Discharge Completed Yes Patient/caregiver will make healthcare providers aware of and any changes to Advance Directives throughout certification period Advance Directives Completed Yes Patient will have improved edema management Description: Patient/caregiver will demonstrate an understanding of edema management strategies as evidenced by resolution or stabilization of edema by 05/01/23. SN Edema Completed Yes Patient/Caregiver will have improved healing and be free of signs and symptoms of complications Description: Patient/caregiver will verbalize management strategies to promote wound healing & prevent complications as evidenced by improved healing & no complications by 05/01/23. SN Integumentary/Wounds Completed Yes Demonstrate understanding of education Description: Patient and/or caregiver will verbalize understanding of educational instruction provided throughout certification period. SN Learning Assessment Completed Yes Interventions Intervention Associated Problem/Goal Status Variance Visit Notes Medication Education Description: Evaluate/instruct patient/caregiver on obtaining, storing, identifying and administering ordered medications as well as keeping accurate medication list in the home and adhereing to medication schedule Problem:Medication Education Goal:Patient/caregive r will demonstrate ability to obtain, store, identify and administer ordered medications, keep accurate medication list in home, and adhere to medication schedule Completed Patient instructed on importance of keeping accurate medication list in home, adhering to medication schedule and proper storage of medications. Risk of Sepsis Description: Patient is at risk for sepsis. Monitor closely for s/s of sepsis. Problem:Sepsis Goal:Patient/caregive r will be able to identify and report symptoms of sepsis Completed Assess and instruct patient/caregiver on post-transplant precautions, complications, and self-management strategies Description: Instruct patient/caregiver on after-care for Liver transplant. Problem:Post-Transpla nt Goal:Patient will have uncomplicated recovery after transplant Completed Patient and Caregiver instructed on preventing infection, signs and symptoms of organ rejection fever, increased pain, lethargy, flu-like symptoms, edema and shortness of breath, signs and symptoms of post-transplant infection, post-transplant activity guidelines, diet, post-op surgical precautions, anti-rejection medications, importance of lab studies and when to contact the post-transplant team as referred to in post-transplant binder. SPO2 Description: Notify Dr. Landry if pulse ox is <92% at rest. Problem:Physician Specific Parameters Goal:Patient to maintain parameters within physician-specified ranges throughout certification period Completed Instruct on individual fall risk factors and strategies to prevent falls and injuries caused by falls. Problem:Risk for Falls Goal:Manage Risk for falls Completed SN: Patient and Caregiver instructed on Eliminating Environmental Hazards: Keep pathways clear, Keep pets out of pathways, Keep rooms and walkways well lit, Wear supportive shoes or non-skid socks and Keep frequently used items within reach Instruct on pain and instruct on strategies to control pain Problem:Pain Goal:Manage Pain Completed patient instructed on techniques to control pain including Pharmacological measures and Non-Pharmacological measures; rest, positioning/elevation, distraction and breathing/relaxation. Opioids- educated on high risk medication Problem:High Risk Medications Goal:Patient/caregive r will teach back high risk medication side effect and precaution education Completed patient educated on taking medication(s) as prescribed by provider. Do not stop medication or alter doses without speaking with your provider. Discuss medication effectiveness or side effect concerns with your provider and home care team. Only take opioids as prescribed, do not share your medications, and take proper precautions in storing and properly disposing of opioids once no longer needed. Possible side effects of opioid medication including sedation, decreased rate of breathing, and constipation. Report over sedation to prescribing provider and practice deep breathing techniques every hour while awake. Prevent constipation by increasing water and fiber intake, increasing activity as tolerated, and use stool softener(s) as prescribed. Antiplatelet- educated on high risk medication Problem:High Risk Medications Goal:Patient/caregive r will teach back high risk medication side effect and precaution education Completed patient educated on taking medication(s) as prescribed by provider. Do not stop medication or alter doses without speaking with your provider. Discuss medication effectiveness or side effect concerns with your provider and home care team. Discuss all medications you are taking, even [id number] medicines, with your provider and pharmacist since many drugs can interact with antiplatelet medications. If you forget to take a dose, DO NOT take a double dose. Take the missed dose as soon as possible on the same day. DO NOT take a double dose the next day to make up for the missed dose. Watch for signs of abnormal or excessive bleeding and bruising (refer to Bleeding Precautions education). Call your health care provider right away if you suspect something is wrong. Deliver NOMNC Problem:Discharge Goal:Manage discharge planning Completed Delivered NOMNC Instruct on final discharge plan and deliver discharge instructions Problem:Discharge Goal:Manage discharge planning Completed Delivered Discharge plan: Discharge plan discussed with patient and caregiver for plan for transition to: live independently at home without ongoing services Determine patient's Advance Directive Status Description: Patient does have advance directives. Patient's Advance Directives determined to be available in Home and EMR Healthcare DPOA and Living Will. Problem:Advance Directives Goal:Patient/caregive r will make healthcare providers aware of and any changes to Advance Directives throughout certification period Completed Discussed Advance Directives with Patient and/or Caregiver. Referred patient to Home Care handbook for further information on Healthcare DPOA & Living Will. Assess and instruct on measures to reduce edema Problem:SN Edema Goal:Patient will have improved edema management Completed patient and caregiver instructed on elevation, diet, medication compliance and benefits of activity. Instruct patient/caregiver healing process and management measures to promote healing and avoid complications Problem:SN Integumentary/Wounds Goal:Patient/Caregive r will have improved healing and be free of signs and symptoms of complications Completed patient and caregiver instructed on the following: healing process, signs and symptoms of infection, importance of good nutrition and when to report symptoms. Instruct Patient/Caregiver on wound/incision care procedure as ordered by physician Problem:SN Integumentary/Wounds Goal:Patient/Caregive r will have improved healing and be free of signs and symptoms of complications Completed patient and caregiver return demonstrated wound care as ordered by Physician. Instruct and educate on knowledge deficits Problem:SN Learning Assessment Goal:Demonstrate understanding of education Completed patient and caregiver verbalize and/or demonstrate understanding of nursing education completed today. Education methods include: verbal cues and teach back. documented in this encounter [facility] for referral (narrative)* Diagnostic Procedure Only (Routine) - Closed Specialty Diagnoses / Procedures Referred By Contac t Referred To Contact US IMAGING Diagnoses Cirrhosis of liver with ascites, unspecified hepatic cirrhosis type (HCC) Procedures US DOPPLER COMPLETE DUP-SCAN ARTL JELANI ABDL/PEL/SCROT&/RPR ORGN COM Tevin De La Cruz MD [address] [place] [address] [facility] Referral ID Status Reason Start Date Expiration Date V isits Requested Visits Authorized [id number] Closed Auto-Generate d Referral 07/11/2021 08/10/2022 1 1 * Diagnostic Procedure Only (Routine) - Closed Specialty Diagnoses / Procedures Referred By Contac t Referred To Contact US IMAGING Diagnoses Cirrhosis of liver with ascites, unspecified hepatic cirrhosis type (HCC) Procedures US ABD LIVER VASCULAR US ABDOMINAL REAL TIME W/IMAGE LIMITED DUP-SCAN ARTL JELANI ABDL/PEL/SCROT&/RPR ORGN COM Tevin De La Cruz MD [address] [place] [address] Us Imaging Referral ID Status Reason Start Date Expiration Date V isits Requested Visits Authorized [id number] Closed Auto-Generate d Referral 07/11/2021 08/10/2022 1 1 [facility] [facility] for referral (narrative)* Diagnostic Procedure Only (Routine) - Authorized Specialty Diagnoses / Procedures Referred By Contac t Referred To Contact US IMAGING Diagnoses Cirrhosis of liver with ascites, unspecified hepatic cirrhosis type (HCC) Portal hypertension with esophageal varices (HCC) Procedures US ABD RT UPPER QUADRANT US ABDOMINAL REAL TIME W/IMAGE LIMITED Tevin De La Cruz MD [address] [place] [address] Us Imaging Referral ID Status Reason Start Date Expiration Date Visits Requested Visits Authorized [id number] Authorized Auto-Generat ed Referral 12/29/2022 1 1 * Outpatient Procedure (Routine) - Authorized Specialty Diagnoses / Procedures Referred By [facility] t Referred To Contact [facility] Diagnoses Cirrhosis of liver with ascites, unspecified hepatic cirrhosis type (HCC) Portal hypertension with esophageal varices (HCC) Procedures EGD - THERAPEUTIC, EUS, OR TUBE INTERVENTIONS EGD BAND LIGATION ESOPHGEAL/GASTRIC VARICES Tevin De La Cruz MD [address] [place] [address] [place] [id number] Referral ID Status Reason Start Date Expiration Date Visits Requested Visits Authorized [id number] Authorized Auto-Generat ed Referral 11/29/2021 11/29/2022 1 1 [facility] for referral (narrative)* Outpatient Procedure (Routine) - Closed Specialty Diagnoses / Procedures Referred By [facility] Referred To Contact [facility] Diagnoses Cirrhosis of liver with ascites, unspecified hepatic cirrhosis type (HCC) Portal hypertension with esophageal varices (HCC) Procedures EGD - THERAPEUTIC, EUS, OR TUBE INTERVENTIONS EGD BAND LIGATION ESOPHGEAL/GASTRIC VARICES Tevin De La Cruz MD [address] [place] [address] [address] Referral ID Status Reason Start Date Expiration Date V isits Requested Visits Authorized [id number] Closed Auto-Generate d Referral 11/29/2021 11/29/2022 1 1 [facility] for referral (narrative)* Outpatient Procedure (Routine) - Closed Specialty Diagnoses / Procedures Referred By Contac t Referred To Contact [facility] Diagnoses Cirrhosis of liver with ascites, unspecified hepatic cirrhosis type (HCC) Procedures ABDOM PARACENTESIS DX/THER W IMAGING GUIDANCE ABDOM PARACENTESIS DX/THER W IMAGING GUIDANCE Tevin De La Cruz MD [address] [place] [id number] [place] [id number] Referral ID Status Reason Start Date Expiration Date V isits Requested Visits Authorized [id number] Closed Auto-Generate d Referral 03/24/2022 03/24/2023 1 1 [facility] for referral (narrative)* Outpatient Procedure (Routine) - Closed Specialty Diagnoses / Procedures Referred By Contac t Referred To Contact [facility] Diagnoses Cirrhosis of liver with ascites, unspecified hepatic cirrhosis type (HCC) Procedures ABDOM PARACENTESIS DX/THER W IMAGING GUIDANCE ABDOM PARACENTESIS DX/THER W IMAGING GUIDANCE Tevin De La Cruz MD [address] [place] [address] [address] Referral ID Status Reason Start Date Expiration Date V isits Requested Visits Authorized [id number] Closed Auto-Generate d Referral 03/24/2022 03/24/2023 1 1 [facility] for referral (narrative)* Outpatient Procedure (Routine) - Pending Review Specialty Diagnoses / Procedures Referred By Contac t Referred To Contact [facility] Diagnoses Other cirrhosis of liver (HCC) Procedures ABDOM PARACENTESIS DX/THER W IMAGING GUIDANCE ABDOM PARACENTESIS DX/THER W IMAGING GUIDANCE Tevin De La Cruz MD [address] [place] [address] [address] Referral ID Status Reason Start Date Expiration Date Visits Requested Visits Authorized [id number] Pending Review Auto-Generat ed Referral 04/18/2022 04/17/2023 12 1 [facility] for referral (narrative)* Diagnostic Procedure Only (Routine) - Closed Specialty Diagnoses / Procedures Referred By Contac t Referred To Contact US IMAGING Diagnoses Portal hypertension with esophageal varices (HCC) Procedures US DOPPLER COMPLETE DUP-SCAN ARTL JELANI ABDL/PEL/SCROT&/RPR ORGN COM Tevin De La Cruz MD [address] [place] [address] Us Imaging Referral ID Status Reason Start Date Expiration Date V isits Requested Visits Authorized [id number] Closed Auto-Generate d Referral 06/16/2022 07/16/2023 1 1 * Diagnostic Procedure Only (Routine) - Closed Specialty Diagnoses / Procedures Referred By Contac t Referred To Contact US IMAGING Diagnoses Portal hypertension with esophageal varices (HCC) Procedures US ABD LIVER VASCULAR US ABDOMINAL REAL TIME W/IMAGE LIMITED DUP-SCAN ARTL JELANI ABDL/PEL/SCROT&/RPR ORGN COM Tevin De La Cruz MD [address] [facility] [place] [address] Us Imaging Referral ID Status Reason Start Date Expiration Date V isits Requested Visits Authorized [id number] Closed Auto-Generate d Referral 06/16/2022 07/16/2023 1 1 [facility] for referral (narrative)* Diagnostic Procedure Only (Routine) - Pending Review Specialty Diagnoses / Procedures Referred By Contac t Referred To Contact US IMAGING Diagnoses 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) Procedures US ABD SPLEEN US ABDOMINAL REAL TIME W/IMAGE LIMITED Tevin De La Cruz MD [address] [facility] [place] [address] Us Imaging Referral ID Status Reason Start Date Expiration Date Visits Requested Visits Authorized [id number] Pending Review Auto-Generat ed Referral 07/17/2022 08/16/2023 1 1 * Diagnostic Procedure Only (Routine) - Pending Review Specialty Diagnoses / Procedures Referred By Chemo t Referred To Contact US IMAGING Diagnoses 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) Procedures US ABD RT UPPER QUADRANT US ABDOMINAL REAL TIME W/IMAGE LIMITED Tevin De La Cruz MD [address] [place] [address] Us Imaging Referral ID Status Reason Start Date Expiration Date Visits Requested Visits Authorized [id number] Pending Review Auto-Generat ed Referral 07/17/2022 08/16/2023 5 5 [facility] for referral (narrative)* Outpatient Procedure (Routine) - Closed Specialty Diagnoses / Procedures Referred By Chemo t Referred To Contact [facility] Diagnoses Other cirrhosis of liver (HCC) Procedures ABDOM PARACENTESIS DX/THER W IMAGING GUIDANCE ABDOM PARACENTESIS DX/THER W IMAGING GUIDANCE Tevin De La Cruz MD [address] [place] [address] [place] [address] [place] [address] Referral ID Status Reason Start Date Expiration Date V isits Requested Visits Authorized [id number] Closed Auto-Generate d Referral 04/18/2022 04/17/2023 12 1 [facility] for referral (narrative)* Outpatient Procedure (Routine) - Pending Review Specialty Diagnoses / Procedures Referred By Contac t Referred To Contact [facility] Diagnoses Other ascites Procedures ABDOM PARACENTESIS DX/THER W IMAGING GUIDANCE ABDOM PARACENTESIS DX/THER W IMAGING GUIDANCE Nuris Vega, JEFFREY.EMISSIONS TECHNICIAN [address] [place] [address] [address] Referral ID Status Reason Start Date Expiration Date Visits Requested Visits Authorized [id number] Pending Review Auto-Generat ed Referral 10/03/2022 10/04/2023 1 1 [facility] for referral (narrative)* Diagnostic Procedure Only (Routine) - Pending Review Specialty Diagnoses / Procedures Referred By Contac t Referred To Contact US IMAGING Diagnoses S/P TIPS (transjugular intrahepatic portosystemic shunt) Procedures US DOPPLER COMPLETE DUP-SCAN ARTL JELNAI ABDL/PEL/SCROT&/RPR ORGN COM Yane Miller APRN.EMISSIONS TECHNICIAN [address] [place] [address] Us Imaging Referral ID Status Reason Start Date Expiration Date Visits Requested Visits Authorized [id number] Pending Review Auto-Generat ed Referral 10/31/2022 11/30/2023 1 1 * Diagnostic Procedure Only (Routine) - Pending Review Specialty Diagnoses / Procedures Referred By Contac t Referred To Contact US IMAGING Diagnoses S/P TIPS (transjugular intrahepatic portosystemic shunt) Procedures US ABD LIVER VASCULAR US ABDOMINAL REAL TIME W/IMAGE LIMITED DUP-SCAN ARTL JELANI ABDL/PEL/SCROT&/RPR ORGN COM Yane Miller APRN.EMISSIONS TECHNICIAN [address] [place] [address] Us Imaging Referral ID Status Reason Start Date Expiration Date Visits Requested Visits Authorized [id number] Pending Review Auto-Generat ed Referral 10/31/2022 11/30/2023 1 1 [facility] for referral (narrative)* Outpatient Procedure (Routine) - Closed Specialty Diagnoses / Procedures Referred By Contac t Referred To Contact [facility] Diagnoses Other cirrhosis of liver (HCC) Procedures ABDOM PARACENTESIS DX/THER W IMAGING GUIDANCE ABDOM PARACENTESIS DX/THER W IMAGING GUIDANCE Tevin De La Cruz MD [address] [place] [address] [place] [phone] Referral ID Status Reason Start Date Expiration Date V isits Requested Visits Authorized [id number] Closed Auto-Generate d Referral 04/18/2022 04/17/2023 12 1 [facility] for referral (narrative)* Outpatient Procedure (Routine) - Closed Specialty Diagnoses / Procedures Referred By Contac t Referred To Contact [facility] Diagnoses Other cirrhosis of liver (HCC) Procedures ABDOM PARACENTESIS DX/THER W IMAGING GUIDANCE ABDOM PARACENTESIS DX/THER W IMAGING GUIDANCE Tevin De La Cruz MD [address] [place], [place] [id number] [place] [address] Referral ID Status Reason Start Date Expiration Date V isits Requested Visits Authorized [id number] Closed Auto-Generate d Referral 04/18/2022 04/17/2023 12 1 [facility] for visit Narrative* Diagnostic Procedure Only (Routine) - Closed Specialty Diagnoses / Procedures Referred By Contac t Referred To Contact US IMAGING Diagnoses Cirrhosis of liver with ascites, unspecified hepatic cirrhosis type (HCC) Procedures US ABD LIVER VASCULAR US ABDOMINAL REAL TIME W/IMAGE LIMITED DUP-SCAN ARTL JELANI ABDL/PEL/SCROT&/RPR ORGN COM Tevin De La Cruz MD [address] [place] [address] Us Imaging Referral ID Status Reason Start Date Expiration Date V isits Requested Visits Authorized [id number] Closed Auto-Generate d Referral 07/11/2021 08/10/2022 1 1 [facility] for visit Narrative* Outpatient Procedure (Routine) - Closed Specialty Diagnoses / Procedures Referred By Contac t Referred To Contact [facility] Diagnoses Cirrhosis of liver with ascites, unspecified hepatic cirrhosis type (HCC) Portal hypertension with esophageal varices (HCC) Procedures EGD - THERAPEUTIC, EUS, OR TUBE INTERVENTIONS EGD BAND LIGATION ESOPHGEAL/GASTRIC VARICES Tevin De La Cruz MD [address] [place] [address] [place] [address] Referral ID Status Reason Start Date Expiration Date V isits Requested Visits Authorized [id number] Closed Auto-Generate d Referral 11/29/2021 11/29/2022 1 1 [facility] for visit Narrative* Outpatient Procedure (Routine) - Closed Specialty Diagnoses / [facility] Diagnoses Cirrhosis of liver with ascites, unspecified hepatic cirrhosis type (HCC) Procedures ABDOM PARACENTESIS DX/THER W IMAGING GUIDANCE ABDOM PARACENTESIS DX/THER W IMAGING GUIDANCE Tevin De La Cruz MD [address] [place], [place] [id number] [place] [address] Referral ID Status Reason Start Date Expiration Date V isits Requested Visits Authorized [id number] Closed Auto-Generate d Referral 03/24/2022 03/24/2023 1 1 [facility] for visit Narrative* Outpatient Procedure (Routine) - Closed Specialty Diagnoses / Procedures Referred By Robbieac t [facility] Diagnoses Other cirrhosis of liver (HCC) Portal hypertension with esophageal varices (HCC) Generalized edema Procedures ECHO WITH AGITATED SALINE CONTRAST ECHO TRANSTHORAC R-T 2D W/WO M-MODE REC COMP Tevin De La Cruz MD [address] [place] [address] [address] [facility] [place] [address] Referral ID Status Reason Start Date Expiration Date V isits Requested Visits Authorized [id number] Closed Auto-Generate d Referral 05/25/2022 05/25/2023 1 1 [facility] for visit Narrative* Diagnostic Procedure Only (Routine) - Closed Specialty Diagnoses / Procedures Referred By Contac t Referred To Contact US IMAGING Diagnoses Portal hypertension with esophageal varices (HCC) Procedures US ABD LIVER VASCULAR US ABDOMINAL REAL TIME W/IMAGE LIMITED DUP-SCAN ARTL JELANI ABDL/PEL/SCROT&/RPR ORGN COM Tevin De La Cruz MD [address] [place] [address] Us Imaging Referral ID Status Reason Start Date Expiration Date V isits Requested Visits Authorized [id number] Closed Auto-Generate d Referral 06/16/2022 07/16/2023 1 1 [facility] for visit Narrative* Outpatient Procedure (Routine) - Closed Specialty Diagnoses / Procedures Referred By Contac t Referred To Contact [facility] Diagnoses Other cirrhosis of liver (HCC) Procedures ABDOM PARACENTESIS DX/THER W IMAGING GUIDANCE ABDOM PARACENTESIS DX/THER W IMAGING GUIDANCE Tevin De La Cruz MD [address] [place] [id number] [place] [address] Referral ID Status Reason Start Date Expiration Date V isits Requested Visits Authorized [id number] Closed Auto-Generate d Referral 04/18/2022 04/17/2023 12 1 [facility] for visit Narrative* Diagnostic Procedure Only (Routine) - Closed Specialty Diagnoses / Procedures Referred By Contac t Referred To Contact US IMAGING Diagnoses S/P TIPS (transjugular intrahepatic portosystemic shunt) Procedures US ABD LIVER VASCULAR US ABDOMINAL REAL TIME W/IMAGE LIMITED DUP-SCAN ARTL JELANI ABDL/PEL/SCROT&/RPR ORGN COM Yane Miller APRN.EMISSIONS TECHNICIAN [address] [place] [address] Us Imaging Referral ID Status Reason Start Date Expiration Date V isits Requested Visits Authorized [id number] Closed Auto-Generate d Referral 10/31/2022 11/30/2023 1 1 [facility] for visit Narrative* Diagnostic Procedure Only (Routine) - Closed Specialty Diagnoses / Procedures Referred By Contac t Referred To Contact US IMAGING Diagnoses 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 Encounter for other preprocedural examination Procedures US DVT UPPER BILATERAL DUP-SCAN XTR VEINS COMPLETE BILATERAL STUDY Tevin De La Cruz MD [address] [place] [address] Us Imaging Referral ID Status Reason Start Date Expiration Date V isits Requested Visits Authorized [id number] Closed Auto-Generate d Referral 01/15/2023 02/14/2024 [facility] Procedure (Routine) - Closed Specialty Diagnoses / Procedures Referred By Contac t Referred To Contact [facility] Diagnoses Screen for colon cancer History of colonic polyps Procedures COLONOSCOPY SCREENING COLONOSCOPY FLX DX W/COLLJ SPEC WHEN PFRMD Danita Driver, JEFFREY.EMISSIONS TECHNICIAN [address] [place] [address] Phone: tel: fax: [facility] [address] [place] [address] Referral ID Status Reason Start Date Expiration Date V isits Requested Visits Authorized [id number] Closed Auto-Generate d Referral 01/06/2025 01/06/2026 1 1 [facility] Summary Purpose Family History No Family History Records Found Relationship Condition Age at Onset Recorded Date/T vishal mother Cardiac disease Unknown Malignant neoplasm Unknown father Malignant neoplasm Unknown brother Malignant neoplasm Unknown Advance Directives No Advanced Directives Records FoundDocuments on File Type Date Recorded Patient Bureau Chief Expl anation Advance Directive(s) 08/08/2021 10:35 AM Date Activated Date Inactivated Comments 04/09/2023 12:03 PM Latest Code Status on File Code Status Date Activated Date Inactivated Comments Full Code 04/09/2023 12:03 PM Documents on File Type Date Recorded Patient Bureau Chief Expl anation Advance Directive(s) 08/08/2021 10:23 AM Advance Directive(s) 08/08/2021 10:35 AM Advance Directive(s) 01/07/2020 6:49 AM Advance Directive(s) 12/29/2019 2:42 PM Advance Directive(s) 02/08/2017 6:31 AM Advance Directive(s) 02/02/2017 9:38 AM Documents on File Type Date Recorded Patient Bureau Chief Expl anation Advance Directive(s) 09/30/2021 2:51 PM Advance Directive(s) 08/08/2021 10:23 AM Advance Directive(s) 08/08/2021 10:35 AM Advance Directive(s) 01/07/2020 6:49 AM Advance Directive(s) 12/29/2019 2:42 PM Advance Directive(s) 02/08/2017 6:31 AM Advance Directive(s) 02/02/2017 9:38 AM Advance Directive Response Recorded Date/ Time Advance Directives Yes July 18, 2017 1:34am Living Will No April 26, 2 021 2:36am Power of Form Press Operator No April 26, 2021 2:36am Documents on File Type Date Recorded Patient Bureau Chief Expl anation Advance Directive(s) 09/30/2021 2:51 PM Advance Directive(s) 08/08/2021 10:23 AM Advance Directive(s) 08/08/2021 10:35 AM Advance Directive(s) 01/07/2020 6:49 AM Advance Directive(s) 12/29/2019 2:42 PM Advance Directive(s) 02/08/2017 6:31 AM Advance Directive(s) 02/02/2017 9:38 AM Documents on File Type Date Recorded Patient Bureau Chief Expl anation Advance Directive(s) 08/08/2021 10:35 AM Advance Directive Response Recorded Date/ Time Advance Directives Yes July 18, 2017 12:34am Living Will No April 26, 021 1:36am Power of Form Press Operator No April 26, 2021 1:36am Latest Code Status on File Code Status Date Activated Date Inactivated Comments Full Code 04/09/2023 12:03 PM Date Activated Date Inactivated Comments 04/09/2023 12:03 PM Chief Complaint and Reason for Visit Chief Complaint NEED ORDER AUSTYNT Tamara/ 11/22/21 Chief Complaint 1 Y FU 6 M FU EORDER Reason for Visit SOB (shortness of br eath) VANESSA on CPAP SOB (shortness of breath) Atherosclerotic heart disease of [place] coronary artery without angina pectoris Essential hypertension Pure hypercholesterolemia Medications Administered Section Inactive Administered Medications - up to 3 most recent administrations Medication Order MAR Action Action Date Dose Rate Site benzocaine 20% (TOPEX) TOPICAL, NEEDED, Starting on Charlene 01/05/22 at 1314, Until Charlene 01/05/22 at 1314 Given 01/05/2022 1:14 PM EDT 1 [place] fentaNYL 50 mcg/mL injection (SUBLIMAZE) INTRAVENOUS, NEEDED, Starting on Charlene 01/05/22 at 1316, Until Charlene 01/05/22 at 1316 Given 01/05/2022 1:16 PM EDT 50 mcg midazolam (PF) injection (VERSED) INTRAVENOUS, NEEDED, Starting on Charlene 01/05/22 at 1316, Until Charlene 01/05/22 at 1318 Given 01/05/2022 1:18 PM EDT 2 mg Given 01/05/2022 1:16 PM EDT 2 mg Inactive Administered Medications - up to 3 most recent administrations Medication Order MAR Action Action Date Dose Rate Site albumin (25%) 50 g infusion 50 g, INTRAVENOUS, at 400 mL/hr, ONCE, 1 dose, On Charlene 03/30/22 at 1000 New Bag/Syringe/Tomas le 03/30/2022 10:00 AM EDT 50 g 400 mL/hr lidocaine (PF) 20 mg/mL (2 %) injection (XYLOCAINE) INTRADERMAL, X (OR/PROCEDURE) PRN, Starting on Charlene 03/30/22 at 0824, Until Sun03/31/22 at 0414, Intraprocedure Given 03/30/2022 8:24 AM EDT 10 mL Abdomen, RLQ Inactive Administered Medications - up to 3 most recent administrations Medication Order MAR Action Action Date Dose Rate Site sodium chloride 0.9 % (flush) 10 mL (BD POSIFLUSH) 10 mL, INTRAVENOUS, DIRECTED NEEDED, 1 dose, Starting on Charlene 05/25/22 at 2241, Until 06/19/22 at 1000, Per-Protocol - for use during ECHO procedure only, If no IV access, insert saline lock prior to administering contrast. Discontinue saline lock post exam. If patient has central line or IVAD, may access for administering according to line specific nursing protocol. Once exam is complete, flush line and de-access per line specific nursing protocol. 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) Procedures CT LIVER WO/W IVCON CT ABDOMEN W & W/O CONTRAST Yane Miller APRN.JOYCELYN [address] [place] [address] Ct Imaging Referral ID Status Reason Start Date Expiration Date Visits Requested Visits Authorized [id number] Authorized Auto-Generat ed Referral 07/17/2022 08/16/2023 1 1 Specialty Diagnoses / Procedures Referred By Contac t Referred To Contact General Surgery Diagnoses Right inguinal hernia Nonalcoholic fatty liver disease without nonalcoholic steatohepatitis (DURANT) Hepatic fibrosis Procedures CONSULT TO GENERAL SURGERY OFFICE/OUTPATIENT [facility] 60-74 MINUTES Essence Weston MD [address] [place] [address] Leonard Hawkins MD [address] [place] [address] Referral ID Status Reason Start Date Expiration Date Visits Requested Visits Authorized [id number] Authorized PCP Requested Referral 09/12/2022 09/12/2023 1 1 Specialty Diagnoses / Procedures Referred By Contac t Referred To Contact Cardiology Diagnoses Coronary artery 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 artery of [place] heart, unspecified whether angina present Procedures CONSULT TO CARDIOLOGY OFFICE/OUTPATIENT [facility] 60-74 MINUTES Tevin De La Cruz MD [address] [place] [id number] Referral ID Status Reason Start Date Expiration Date Visits Requested Visits Authorized [id number] Authorized PCP Requested Referral 10/16/2022 10/03/2023 1 1 Specialty Diagnoses / Procedures Referred By Contac t [facility] Diagnoses Liver transplant candidate DURANT (nonalcoholic steatohepatitis) Procedures SPIROMETRY BASELINE ONLY SPMTRY W/VC EXPIRATORY JELANI W/WO MXML VOL VNTJ Tevin De La Cruz MD [address] [facility] [place] [id number] Respiratory [place] [address] [place] [address] Referral ID Status Reason Start Date Expiration Date Visits Requested Visits Authorized [id number] Authorized Auto-Generat ed Referral 10/16/2022 11/02/2023 1 1 Specialty Diagnoses / Procedures Referred By Contac t Referred To Contact CT IMAGING Diagnoses Liver transplant candidate DURANT (nonalcoholic steatohepatitis) Procedures CT CHEST WO IVCON DIAGNOSTIC COMPUTED TOMOGRAPHY THORAX W/O CNTRST Tevin De La Cruz MD [address] [place] [address] Ct Imaging Referral ID Status Reason Start Date Expiration Date Visits Requested Visits Authorized [id number] Authorized Auto-Generat ed Referral 10/16/2022 11/02/2023 1 1 Specialty Diagnoses / Procedures Referred By Contac t Referred To Contact Nutrition Diagnoses Liver transplant candidate DURANT (nonalcoholic steatohepatitis) Type 2 diabetes mellitus with other circulatory complications (HCC) Procedures CONSULT TO NUTRITION THERAPY MEDICAL NUTRITION ASSMT&IVNTJ INDIV EACH 15 PR MEDICAL NUTRITION ASSMT&IVNTJ INDIV EACH 15 PR MEDICAL NUTRITION ASSMT&IVNTJ INDIV EACH 15 PR MEDICAL NUTRITION ASSMT&IVNTJ INDIV EACH 15 PR Tevin De La Cruz MD [address] [place] [address] Referral ID Status Reason Start Date Expiration Date Visits Requested Visits Authorized [id number] Authorized PCP Requested Referral 10/16/2022 10/03/2023 1 1 Specialty Diagnoses / Procedures Referred By Contac t Referred To Contact Infectious Diseases Diagnoses Liver transplant candidate DURANT (nonalcoholic steatohepatitis) Procedures CONSULT TO INFECTIOUS DISEASES OFFICE/OUTPATIENT [facility] 60-74 MINUTES Tevin De La Cruz MD [address] [place] [address] Referral ID Status Reason Start Date Expiration Date Visits Requested Visits Authorized [id number] Authorized PCP Requested Referral 10/16/2022 10/03/2023 1 1 Specialty Diagnoses / Procedures Referred By Contac t Referred To Contact Anesthesiology Diagnoses Liver transplant candidate DURANT (nonalcoholic steatohepatitis) Procedures CONSULT TO ANESTHESIOLOGY OFFICE/OUTPATIENT [facility] 60-74 MINUTES Tevin De La Cruz MD [address] [place] [address] Referral ID Status Reason Start Date Expiration Date Visits Requested Visits Authorized [id number] Authorized PCP Requested Referral 10/16/2022 10/03/2023 1 1 Referral ID Status Reason Start Date Expiration Date V isits Requested Visits Authorized [id number] Closed Auto-Generate d Referral 10/16/2022 11/02/2023 1 1 Specialty Diagnoses / Procedures Referred By Contac t Referred To Contact TRANSPLANT Diagnoses 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) Procedures REFERRAL FOR TRANSPLANT WAITLIST AUTHORIZATION Tevin De La Cruz MD [address] [place] [address] [facility] [address] [place] [address] Referral ID Status Reason Start Date Expiration Date Visits Requested Visits Authorized [id number] Pending Review PCP Requested Referral 01/18/2023 01/18/2024 99 99 Specialty Diagnoses / Procedures Referred By Contac t Referred To Contact CT IMAGING Diagnoses Portal hypertension with esophageal varices (HCC) 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) Procedures CT LIVER WO/W IVCON CT ABDOMEN W & W/O CONTRAST Yane Miller APRN.EMISSIONS TECHNICIAN [address] [place] [address] [facility] [place] [address] Referral ID Status Reason Start Date Expiration Date V isits Requested Visits Authorized [id number] Closed Auto-Generate d Referral 07/17/2022 08/16/2023 1 1 Health Concerns Infection Onset Date Last Indicated Resolved Time COVID-19 Rule-Out 08/11/2022 08/11/2022 08/11/2022 11:41 PM EST Additional Source Comments (unrecognized sect ion and content) No Status Records FoundNo Status Records FoundNo Status Records FoundNo Status Records FoundNo Status Records FoundNo Status Records Found INFORMATION SOURCE (unrecogn ized section and content) DATE CREATED AUTHOR [facility]/30/2017 [facility] DATE CREATED AUTHOR AUTHOR'S ORGANIZ ATION 08/23/2022 [facility] DATE CREATED AUTHOR AUTHOR'S ORGANIZ ATION 05/05/2023 [facility] DATE CREATED AUTHOR AUTHOR'S ORGANIZ ATION 03/29/2025 [facility] DATE CREATED AUTHOR AUTHOR'S ORGANIZ ATION 04/15/2025 [facility] DATE CREATED AUTHOR AUTHOR'S ORGANIZ ATION 04/19/2025 [facility] Source Comments (unrecognize d section and content) In the event this informatio n is protected by the Federal Confidentiality of Alcohol and Drug Abuse Patient Records regulations: The Federal rules restrict any use of the information to criminally investigate or prosecute any alcohol or drug abuse patient.[facility] HealthIn the event this information is protected by the Federal Confidentiality of Alcohol and Drug Abuse Patient Records regulations: The Federal rules restrict any use of the information to criminally investigate or prosecute any alcohol or drug abuse patient.[facility] HealthIn the event this information is protected by the Federal Confidentiality of Alcohol and Drug Abuse Patient Records regulations: The Federal rules restrict any use of the information to criminally investigate or prosecute any alcohol or drug abuse patient.[facility] HealthIn the event this information is protected by the Federal Confidentiality of Alcohol and Drug Abuse Patient Records regulations: The Federal rules restrict any use of the information to criminally investigate or prosecute any alcohol or drug abuse patient.[facility] HealthIn the event this information is protected by the Federal Confidentiality of Alcohol and Drug Abuse Patient Records regulations: The Federal rules restrict any use of the information to criminally investigate or prosecute any alcohol or drug abuse patient.[facility] HealthIn the event this information is protected by the Federal Confidentiality of Alcohol and Drug Abuse Patient Records regulations: The Federal rules restrict any use of the information to criminally investigate or prosecute any alcohol or drug abuse patient.[facility] HealthIn the event this information is protected by the Federal Confidentiality of Alcohol and Drug Abuse Patient Records regulations: The Federal rules restrict any use of the information to criminally investigate or prosecute any alcohol or drug abuse patient.[facility] HealthIn the event this information is protected by the Federal Confidentiality of Alcohol and Drug Abuse Patient Records regulations: The Federal rules restrict any use of the information to criminally investigate or prosecute any alcohol or drug abuse patient.[facility] HealthIn the event this information is protected by the Federal Confidentiality of Alcohol and Drug Abuse Patient Records regulations: The Federal rules restrict any use of the information to criminally investigate or prosecute any alcohol or drug abuse patient.[facility] HealthIn the event this information is protected by the Federal Confidentiality of Alcohol and Drug Abuse Patient Records regulations: The Federal rules restrict any use of the information to criminally investigate or prosecute any alcohol or drug abuse patient.[facility] HealthIn the event this information is protected by the Federal Confidentiality of Alcohol and Drug Abuse Patient Records regulations: The Federal rules restrict any use of the information to criminally investigate or prosecute any alcohol or drug abuse patient.[facility] HealthIn the event this information is protected by the Federal Confidentiality of Alcohol and Drug Abuse Patient Records regulations: The Federal rules restrict any use of the information to criminally investigate or prosecute any alcohol or drug abuse patient.[facility] HealthIn the event this information is protected by the Federal Confidentiality of Alcohol and Drug Abuse Patient Records regulations: The Federal rules restrict any use of the information to criminally investigate or prosecute any alcohol or drug abuse patient.[facility] HealthIn the event this information is protected by the Federal Confidentiality of Alcohol and Drug Abuse Patient Records regulations: The Federal rules restrict any use of the information to criminally investigate or prosecute any alcohol or drug abuse patient.[facility] HealthIn the event this information is protected by the Federal Confidentiality of Alcohol and Drug Abuse Patient Records regulations: The Federal rules restrict any use of the information to criminally investigate or prosecute any alcohol or drug abuse patient.[facility] HealthIn the event this information is protected by the Federal Confidentiality of Alcohol and Drug Abuse Patient Records regulations: The Federal rules restrict any use of the information to criminally investigate or prosecute any alcohol or drug abuse patient.[facility] HealthIn the event this information is protected by the Federal Confidentiality of Alcohol and Drug Abuse Patient Records regulations: The Federal rules restrict any use of the information to criminally investigate or prosecute any alcohol or drug abuse patient.[facility] HealthIn the event this information is protected by the Federal Confidentiality of Alcohol and Drug Abuse Patient Records regulations: The Federal rules restrict any use of the information to criminally investigate or prosecute any alcohol or drug abuse patient.[facility] HealthIn the event this information is protected by the Federal Confidentiality of Alcohol and Drug Abuse Patient Records regulations: The Federal rules restrict any use of the information to criminally investigate or prosecute any alcohol or drug abuse patient.[facility] HealthIn the event this information is protected by the Federal Confidentiality of Alcohol and Drug Abuse Patient Records regulations: The Federal rules restrict any use of the information to criminally investigate or prosecute any alcohol or drug abuse patient.[facility] HealthIn the event this information is protected by the Federal Confidentiality of Alcohol and Drug Abuse Patient Records regulations: The Federal rules restrict any use of the information to criminally investigate or prosecute any alcohol or drug abuse patient.[facility] HealthIn the event this information is protected by the Federal Confidentiality of Alcohol and Drug Abuse Patient Records regulations: The Federal rules restrict any use of the information to criminally investigate or prosecute any alcohol or drug abuse patient.[facility] HealthIn the event this information is protected by the Federal Confidentiality of Alcohol and Drug Abuse Patient Records regulations: The Federal rules restrict any use of the information to criminally investigate or prosecute any alcohol or drug abuse patient.[facility] HealthIn the event this information is protected by the Federal Confidentiality of Alcohol and Drug Abuse Patient Records regulations: The Federal rules restrict any use of the information to criminally investigate or prosecute any alcohol or drug abuse patient.[facility] HealthIn the event this information is protected by the Federal Confidentiality of Alcohol and Drug Abuse Patient Records regulations: The Federal rules restrict any use of the information to criminally investigate or prosecute any alcohol or drug abuse patient.[facility] HealthIn the event this information is protected by the Federal Confidentiality of Alcohol and Drug Abuse Patient Records regulations: The Federal rules restrict any use of the information to criminally investigate or prosecute any alcohol or drug abuse patient.[facility] HealthIn the event this information is protected by the Federal Confidentiality of Alcohol and Drug Abuse Patient Records regulations: The Federal rules restrict any use of the information to criminally investigate or prosecute any alcohol or drug abuse patient.[facility] HealthIn the event this information is protected by the Federal Confidentiality of Alcohol and Drug Abuse Patient Records regulations: The Federal rules restrict any use of the information to criminally investigate or prosecute any alcohol or drug abuse patient.[facility] HealthIn the event this information is protected by the Federal Confidentiality of Alcohol and Drug Abuse Patient Records regulations: The Federal rules restrict any use of the information to criminally investigate or prosecute any alcohol or drug abuse patient.[facility] HealthIn the event this information is protected by the Federal Confidentiality of Alcohol and Drug Abuse Patient Records regulations: The Federal rules restrict any use of the information to criminally investigate or prosecute any alcohol or drug abuse patient.[facility] HealthIn the event this information is protected by the Federal Confidentiality of Alcohol and Drug Abuse Patient Records regulations: The Federal rules restrict any use of the information to criminally investigate or prosecute any alcohol or drug abuse patient.[facility] HealthIn the event this information is protected by the Federal Confidentiality of Alcohol and Drug Abuse Patient Records regulations: The Federal rules restrict any use of the information to criminally investigate or prosecute any alcohol or drug abuse patient.[facility] HealthIn the event this information is protected by the Federal Confidentiality of Alcohol and Drug Abuse Patient Records regulations: The Federal rules restrict any use of the information to criminally investigate or prosecute any alcohol or drug abuse patient.[facility] HealthIn the event this information is protected by the Federal Confidentiality of Alcohol and Drug Abuse Patient Records regulations: The Federal rules restrict any use of the information to criminally investigate or prosecute any alcohol or drug abuse patient.[facility] HealthIn the event this information is protected by the Federal Confidentiality of Alcohol and Drug Abuse Patient Records regulations: The Federal rules restrict any use of the information to criminally investigate or prosecute any alcohol or drug abuse patient.[facility] HealthIn the event this information is protected by the Federal Confidentiality of Alcohol and Drug Abuse Patient Records regulations: The Federal rules restrict any use of the information to criminally investigate or prosecute any alcohol or drug abuse patient.[facility] HealthIn the event this information is protected by the Federal Confidentiality of Alcohol and Drug Abuse Patient Records regulations: The Federal rules restrict any use of the information to criminally investigate or prosecute any alcohol or drug abuse patient.[facility] HealthIn the event this information is protected by the Federal Confidentiality of Alcohol and Drug Abuse Patient Records regulations: The Federal rules restrict any use of the information to criminally investigate or prosecute any alcohol or drug abuse patient.[facility] HealthIn the event this information is protected by the Federal Confidentiality of Alcohol and Drug Abuse Patient Records regulations: The Federal rules restrict any use of the information to criminally investigate or prosecute any alcohol or drug abuse patient.[facility] HealthIn the event this information is protected by the Federal Confidentiality of Alcohol and Drug Abuse Patient Records regulations: The Federal rules restrict any use of the information to criminally investigate or prosecute any alcohol or drug abuse patient.[facility] HealthIn the event this information is protected by the Federal Confidentiality of Alcohol and Drug Abuse Patient Records regulations: The Federal rules restrict any use of the information to criminally investigate or prosecute any alcohol or drug abuse patient.[facility] HealthIn the event this information is protected by the Federal Confidentiality of Alcohol and Drug Abuse Patient Records regulations: The Federal rules restrict any use of the information to criminally investigate or prosecute any alcohol or drug abuse patient.[facility] HealthIn the event this information is protected by the Federal Confidentiality of Alcohol and Drug Abuse Patient Records regulations: The Federal rules restrict any use of the information to criminally investigate or prosecute any alcohol or drug abuse patient.[facility] HealthIn the event this information is protected by the Federal Confidentiality of Alcohol and Drug Abuse Patient Records regulations: The Federal rules restrict any use of the information to criminally investigate or prosecute any alcohol or drug abuse patient.[facility] HealthIn the event this information is protected by the Federal Confidentiality of Alcohol and Drug Abuse Patient Records regulations: The Federal rules restrict any use of the information to criminally investigate or prosecute any alcohol or drug abuse patient.[facility] HealthIn the event this information is protected by the Federal Confidentiality of Alcohol and Drug Abuse Patient Records regulations: The Federal rules restrict any use of the information to criminally investigate or prosecute any alcohol or drug abuse patient.[facility] HealthIn the event this information is protected by the Federal Confidentiality of Alcohol and Drug Abuse Patient Records regulations: The Federal rules restrict any use of the information to criminally investigate or prosecute any alcohol or drug abuse patient.[facility] HealthIn the event this information is protected by the Federal Confidentiality of Alcohol and Drug Abuse Patient Records regulations: The Federal rules restrict any use of the information to criminally investigate or prosecute any alcohol or drug abuse patient.[facility] HealthIn the event this information is protected by the Federal Confidentiality of Alcohol and Drug Abuse Patient Records regulations: The Federal rules restrict any use of the information to criminally investigate or prosecute any alcohol or drug abuse patient.[facility] HealthIn the event this information is protected by the Federal Confidentiality of Alcohol and Drug Abuse Patient Records regulations: The Federal rules restrict any use of the information to criminally investigate or prosecute any alcohol or drug abuse patient.[facility] HealthIn the event this information is protected by the Federal Confidentiality of Alcohol and Drug Abuse Patient Records regulations: The Federal rules restrict any use of the information to criminally investigate or prosecute any alcohol or drug abuse patient.[facility] HealthIn the event this information is protected by the Federal Confidentiality of Alcohol and Drug Abuse Patient Records regulations: The Federal rules restrict any use of the information to criminally investigate or prosecute any alcohol or drug abuse patient.[facility] HealthIn the event this information is protected by the Federal Confidentiality of Alcohol and Drug Abuse Patient Records regulations: The Federal rules restrict any use of the information to criminally investigate or prosecute any alcohol or drug abuse patient.[facility] HealthIn the event this information is protected by the Federal Confidentiality of Alcohol and Drug Abuse Patient Records regulations: The Federal rules restrict any use of the information to criminally investigate or prosecute any alcohol or drug abuse patient.[facility] HealthIn the event this information is protected by the Federal Confidentiality of Alcohol and Drug Abuse Patient Records regulations: The Federal rules restrict any use of the information to criminally investigate or prosecute any alcohol or drug abuse patient.[facility] HealthIn the event this information is protected by the Federal Confidentiality of Alcohol and Drug Abuse Patient Records regulations: The Federal rules restrict any use of the information to criminally investigate or prosecute any alcohol or drug abuse patient.[facility] HealthIn the event this information is protected by the Federal Confidentiality of Alcohol and Drug Abuse Patient Records regulations: The Federal rules restrict any use of the information to criminally investigate or prosecute any alcohol or drug abuse patient.[facility] HealthIn the event this information is protected by the Federal Confidentiality of Alcohol and Drug Abuse Patient Records regulations: The Federal rules restrict any use of the information to criminally investigate or prosecute any alcohol or drug abuse patient.[facility] HealthIn the event this information is protected by the Federal Confidentiality of Alcohol and Drug Abuse Patient Records regulations: The Federal rules restrict any use of the information to criminally investigate or prosecute any alcohol or drug abuse patient.[facility] HealthIn the event this information is protected by the Federal Confidentiality of Alcohol and Drug Abuse Patient Records regulations: The Federal rules restrict any use of the information to criminally investigate or prosecute any alcohol or drug abuse patient.[facility] HealthIn the event this information is protected by the Federal Confidentiality of Alcohol and Drug Abuse Patient Records regulations: The Federal rules restrict any use of the information to criminally investigate or prosecute any alcohol or drug abuse patient.[facility] HealthIn the event this information is protected by the Federal Confidentiality of Alcohol and Drug Abuse Patient Records regulations: The Federal rules restrict any use of the information to criminally investigate or prosecute any alcohol or drug abuse patient.[facility] HealthIn the event this information is protected by the Federal Confidentiality of Alcohol and Drug Abuse Patient Records regulations: The Federal rules restrict any use of the information to criminally investigate or prosecute any alcohol or drug abuse patient.[facility] HealthIn the event this information is protected by the Federal Confidentiality of Alcohol and Drug Abuse Patient Records regulations: The Federal rules restrict any use of the information to criminally investigate or prosecute any alcohol or drug abuse patient.[facility] HealthIn the event this information is protected by the Federal Confidentiality of Alcohol and Drug Abuse Patient Records regulations: The Federal rules restrict any use of the information to criminally investigate or prosecute any alcohol or drug abuse patient.[facility] HealthIn the event this information is protected by the Federal Confidentiality of Alcohol and Drug Abuse Patient Records regulations: The Federal rules restrict any use of the information to criminally investigate or prosecute any alcohol or drug abuse patient.[facility] HealthIn the event this information is protected by the Federal Confidentiality of Alcohol and Drug Abuse Patient Records regulations: The Federal rules restrict any use of the information to criminally investigate or prosecute any alcohol or drug abuse patient.[facility] HealthIn the event this information is protected by the Federal Confidentiality of Alcohol and Drug Abuse Patient Records regulations: The Federal rules restrict any use of the information to criminally investigate or prosecute any alcohol or drug abuse patient.[facility] HealthIn the event this information is protected by the Federal Confidentiality of Alcohol and Drug Abuse Patient Records regulations: The Federal rules restrict any use of the information to criminally investigate or prosecute any alcohol or drug abuse patient.[facility] HealthIn the event this information is protected by the Federal Confidentiality of Alcohol and Drug Abuse Patient Records regulations: The Federal rules restrict any use of the information to criminally investigate or prosecute any alcohol or drug abuse patient.[facility] HealthIn the event this information is protected by the Federal Confidentiality of Alcohol and Drug Abuse Patient Records regulations: The Federal rules restrict any use of the information to criminally investigate or prosecute any alcohol or drug abuse patient.[facility] HealthIn the event this information is protected by the Federal Confidentiality of Alcohol and Drug Abuse Patient Records regulations: The Federal rules restrict any use of the information to criminally investigate or prosecute any alcohol or drug abuse patient.[facility] HealthIn the event this information is protected by the Federal Confidentiality of Alcohol and Drug Abuse Patient Records regulations: The Federal rules restrict any use of the information to criminally investigate or prosecute any alcohol or drug abuse patient.[facility] HealthIn the event this information is protected by the Federal Confidentiality of Alcohol and Drug Abuse Patient Records regulations: The Federal rules restrict any use of the information to criminally investigate or prosecute any alcohol or drug abuse patient.[facility] HealthIn the event this information is protected by the Federal Confidentiality of Alcohol and Drug Abuse Patient Records regulations: The Federal rules restrict any use of the information to criminally investigate or prosecute any alcohol or drug abuse patient.[facility] HealthIn the event this information is protected by the Federal Confidentiality of Alcohol and Drug Abuse Patient Records regulations: The Federal rules restrict any use of the information to criminally investigate or prosecute any alcohol or drug abuse patient.[facility] HealthIn the event this information is protected by the Federal Confidentiality of Alcohol and Drug Abuse Patient Records regulations: The Federal rules restrict any use of the information to criminally investigate or prosecute any alcohol or drug abuse patient.[facility] HealthIn the event this information is protected by the Federal Confidentiality of Alcohol and Drug Abuse Patient Records regulations: The Federal rules restrict any use of the information to criminally investigate or prosecute any alcohol or drug abuse patient.[facility] HealthIn the event this information is protected by the Federal Confidentiality of Alcohol and Drug Abuse Patient Records regulations: The Federal rules restrict any use of the information to criminally investigate or prosecute any alcohol or drug abuse patient.[facility] HealthIn the event this information is protected by the Federal Confidentiality of Alcohol and Drug Abuse Patient Records regulations: The Federal rules restrict any use of the information to criminally investigate or prosecute any alcohol or drug abuse patient.[facility] HealthIn the event this information is protected by the Federal Confidentiality of Alcohol and Drug Abuse Patient Records regulations: The Federal rules restrict any use of the information to criminally investigate or prosecute any alcohol or drug abuse patient.[facility] HealthIn the event this information is protected by the Federal Confidentiality of Alcohol and Drug Abuse Patient Records regulations: The Federal rules restrict any use of the information to criminally investigate or prosecute any alcohol or drug abuse patient.[facility]In the event this information is protected by the Federal Confidentiality of Alcohol and Drug Abuse Patient Records regulations: The Federal rules restrict any use of the information to criminally investigate or prosecute any alcohol or drug abuse patient.[facility] HealthIn the event this information is protected by the Federal Confidentiality of Alcohol and Drug Abuse Patient Records regulations: The Federal rules restrict any use of the information to criminally investigate or prosecute any alcohol or drug abuse patient.[facility] HealthIn the event this information is protected by the Federal Confidentiality of Alcohol and Drug Abuse Patient Records regulations: The Federal rules restrict any use of the information to criminally investigate or prosecute any alcohol or drug abuse patient.[facility] HealthIn the event this information is protected by the Federal Confidentiality of Alcohol and Drug Abuse Patient Records regulations: The Federal rules restrict any use of the information to criminally investigate or prosecute any alcohol or drug abuse patient.[facility] HealthIn the event this information is protected by the Federal Confidentiality of Alcohol and Drug Abuse Patient Records regulations: The Federal rules restrict any use of the information to criminally investigate or prosecute any alcohol or drug abuse patient.[facility] HealthIn the event this information is protected by the Federal Confidentiality of Alcohol and Drug Abuse Patient Records regulations: The Federal rules restrict any use of the information to criminally investigate or prosecute any alcohol or drug abuse patient.[facility] HealthIn the event this information is protected by the Federal Confidentiality of Alcohol and Drug Abuse Patient Records regulations: The Federal rules restrict any use of the information to criminally investigate or prosecute any alcohol or drug abuse patient.[facility]In the event this information is protected by the Federal Confidentiality of Alcohol and Drug Abuse Patient Records regulations: The Federal rules restrict any use of the information to criminally investigate or prosecute any alcohol or drug abuse patient.[facility]In the event this information is protected by the Federal Confidentiality of Alcohol and Drug Abuse Patient Records regulations: The Federal rules restrict any use of the information to criminally investigate or prosecute any alcohol or drug abuse patient.[facility]In the event this information is protected by the Federal Confidentiality of Alcohol and Drug Abuse Patient Records regulations: The Federal rules restrict any use of the information to criminally investigate or prosecute any alcohol or drug abuse patient.[facility]In the event this information is protected by the Federal Confidentiality of Alcohol and Drug Abuse Patient Records regulations: The Federal rules restrict any use of the information to criminally investigate or prosecute any alcohol or drug abuse patient.[facility]In the event this information is protected by the Federal Confidentiality of Alcohol and Drug Abuse Patient Records regulations: The Federal rules restrict any use of the information to criminally investigate or prosecute any alcohol or drug abuse patient.[facility]In the event this information is protected by the Federal Confidentiality of Alcohol and Drug Abuse Patient Records regulations: The Federal rules restrict any use of the information to criminally investigate or prosecute any alcohol or drug abuse patient.[facility]In the event this information is protected by the Federal Confidentiality of Alcohol and Drug Abuse Patient Records regulations: The Federal rules restrict any use of the information to criminally investigate or prosecute any alcohol or drug abuse patient.[facility]In the event this information is protected by the Federal Confidentiality of Alcohol and Drug Abuse Patient Records regulations: The Federal rules restrict any use of the information to criminally investigate or prosecute any alcohol or drug abuse patient.[facility]In the event this information is protected by the Federal Confidentiality of Alcohol and Drug Abuse Patient Records regulations: The Federal rules restrict any use of the information to criminally investigate or prosecute any alcohol or drug abuse patient.[facility]In the event this information is protected by the Federal Confidentiality of Alcohol and Drug Abuse Patient Records regulations: The Federal rules restrict any use of the information to criminally investigate or prosecute any alcohol or drug abuse patient.[facility]In the event this information is protected by the Federal Confidentiality of Alcohol and Drug Abuse Patient Records regulations: The Federal rules restrict any use of the information to criminally investigate or prosecute any alcohol or drug abuse patient.[facility]In the event this information is protected by the Federal Confidentiality of Alcohol and Drug Abuse Patient Records regulations: The Federal rules restrict any use of the information to criminally investigate or prosecute any alcohol or drug abuse patient.[facility]In the event this information is protected by the Federal Confidentiality of Alcohol and Drug Abuse Patient Records regulations: The Federal rules restrict any use of the information to criminally investigate or prosecute any alcohol or drug abuse patient.[facility]In the event this information is protected by the Federal Confidentiality of Alcohol and Drug Abuse Patient Records regulations: The Federal rules restrict any use of the information to criminally investigate or prosecute any alcohol or drug abuse patient.[facility]In the event this information is protected by the Federal Confidentiality of Alcohol and Drug Abuse Patient Records regulations: The Federal rules restrict any use of the information to criminally investigate or prosecute any alcohol or drug abuse patient.[facility]In the event this information is protected by the Federal Confidentiality of Alcohol and Drug Abuse Patient Records regulations: The Federal rules restrict any use of the information to criminally investigate or prosecute any alcohol or drug abuse patient.[facility]In the event this information is protected by the Federal Confidentiality of Alcohol and Drug Abuse Patient Records regulations: The Federal rules restrict any use of the information to criminally investigate or prosecute any alcohol or drug abuse patient.[facility]In the event this information is protected by the Federal Confidentiality of Alcohol and Drug Abuse Patient Records regulations: The Federal rules restrict any use of the information to criminally investigate or prosecute any alcohol or drug abuse patient.[facility]In the event this information is protected by the Federal Confidentiality of Alcohol and Drug Abuse Patient Records regulations: The Federal rules restrict any use of the information to criminally investigate or prosecute any alcohol or drug abuse patient.[facility]In the event this information is protected by the Federal Confidentiality of Alcohol and Drug Abuse Patient Records regulations: The Federal rules restrict any use of the information to criminally investigate or prosecute any alcohol or drug abuse patient.[facility]In the event this information is protected by the Federal Confidentiality of Alcohol and Drug Abuse Patient Records regulations: The Federal rules restrict any use of the information to criminally investigate or prosecute any alcohol or drug abuse patient.[facility]In the event this information is protected by the Federal Confidentiality of Alcohol and Drug Abuse Patient Records regulations: The Federal rules restrict any use of the information to criminally investigate or prosecute any alcohol or drug abuse patient.[facility]In the event this information is protected by the Federal Confidentiality of Alcohol and Drug Abuse Patient Records regulations: The Federal rules restrict any use of the information to criminally investigate or prosecute any alcohol or drug abuse patient.[facility]In the event this information is protected by the Federal Confidentiality of Alcohol and Drug Abuse Patient Records regulations: The Federal rules restrict any use of the information to criminally investigate or prosecute any alcohol or drug abuse patient.[facility]In the event this information is protected by the Federal Confidentiality of Alcohol and Drug Abuse Patient Records regulations: The Federal rules restrict any use of the information to criminally investigate or prosecute any alcohol or drug abuse patient.[facility]In the event this information is protected by the Federal Confidentiality of Alcohol and Drug Abuse Patient Records regulations: The Federal rules restrict any use of the information to criminally investigate or prosecute any alcohol or drug abuse patient.[facility]In the event this information is protected by the Federal Confidentiality of Alcohol and Drug Abuse Patient Records regulations: The Federal rules restrict any use of the information to criminally investigate or prosecute any alcohol or drug abuse patient.[facility]In the event this information is protected by the Federal Confidentiality of Alcohol and Drug Abuse Patient Records regulations: The Federal rules restrict any use of the information to criminally investigate or prosecute any alcohol or drug abuse patient.[facility]In the event this information is protected by the Federal Confidentiality of Alcohol and Drug Abuse Patient Records regulations: The Federal rules restrict any use of the information to criminally investigate or prosecute any alcohol or drug abuse patient.[facility]In the event this information is protected by the Federal Confidentiality of Alcohol and Drug Abuse Patient Records regulations: The Federal rules restrict any use of the information to criminally investigate or prosecute any alcohol or drug abuse patient.[facility]In the event this information is protected by the Federal Confidentiality of Alcohol and Drug Abuse Patient Records regulations: The Federal rules restrict any use of the information to criminally investigate or prosecute any alcohol or drug abuse patient.[facility]In the event this information is protected by the Federal Confidentiality of Alcohol and Drug Abuse Patient Records regulations: The Federal rules restrict any use of the information to criminally investigate or prosecute any alcohol or drug abuse patient.[facility]In the event this information is protected by the Federal Confidentiality of Alcohol and Drug Abuse Patient Records regulations: The Federal rules restrict any use of the information to criminally investigate or prosecute any alcohol or drug abuse patient.[facility]In the event this information is protected by the Federal Confidentiality of Alcohol and Drug Abuse Patient Records regulations: The Federal rules restrict any use of the information to criminally investigate or prosecute any alcohol or drug abuse patient.[facility]In the event this information is protected by the Federal Confidentiality of Alcohol and Drug Abuse Patient Records regulations: The Federal rules restrict any use of the information to criminally investigate or prosecute any alcohol or drug abuse patient.[facility]In the event this information is protected by the Federal Confidentiality of Alcohol and Drug Abuse Patient Records regulations: The Federal rules restrict any use of the information to criminally investigate or prosecute any alcohol or drug abuse patient.[facility]In the event this information is protected by the Federal Confidentiality of Alcohol and Drug Abuse Patient Records regulations: The Federal rules restrict any use of the information to criminally investigate or prosecute any alcohol or drug abuse patient.[facility]In the event this information is protected by the Federal Confidentiality of Alcohol and Drug Abuse Patient Records regulations: The Federal rules restrict any use of the information to criminally investigate or prosecute any alcohol or drug abuse patient.[facility]In the event this information is protected by the Federal Confidentiality of Alcohol and Drug Abuse Patient Records regulations: The Federal rules restrict any use of the information to criminally investigate or prosecute any alcohol or drug abuse patient.[facility]In the event this information is protected by the Federal Confidentiality of Alcohol and Drug Abuse Patient Records regulations: The Federal rules restrict any use of the information to criminally investigate or prosecute any alcohol or drug abuse patient.[facility]In the event this information is protected by the Federal Confidentiality of Alcohol and Drug Abuse Patient Records regulations: The Federal rules restrict any use of the information to criminally investigate or prosecute any alcohol or drug abuse patient.[facility]In the event this information is protected by the Federal Confidentiality of Alcohol and Drug Abuse Patient Records regulations: The Federal rules restrict any use of the information to criminally investigate or prosecute any alcohol or drug abuse patient.[facility]In the event this information is protected by the Federal Confidentiality of Alcohol and Drug Abuse Patient Records regulations: The Federal rules restrict any use of the information to criminally investigate or prosecute any alcohol or drug abuse patient.[facility]In the event this information is protected by the Federal Confidentiality of Alcohol and Drug Abuse Patient Records regulations: The Federal rules restrict any use of the information to criminally investigate or prosecute any alcohol or drug abuse patient.[facility]In the event this information is protected by the Federal Confidentiality of Alcohol and Drug Abuse Patient Records regulations: The Federal rules restrict any use of the information to criminally investigate or prosecute any alcohol or drug abuse patient.[facility]In the event this information is protected by the Federal Confidentiality of Alcohol and Drug Abuse Patient Records regulations: The Federal rules restrict any use of the information to criminally investigate or prosecute any alcohol or drug abuse patient.[facility]In the event this information is protected by the Federal Confidentiality of Alcohol and Drug Abuse Patient Records regulations: The Federal rules restrict any use of the information to criminally investigate or prosecute any alcohol or drug abuse patient.[facility]In the event this information is protected by the Federal Confidentiality of Alcohol and Drug Abuse Patient Records regulations: The Federal rules restrict any use of the information to criminally investigate or prosecute any alcohol or drug abuse patient.[facility]In the event this information is protected by the Federal Confidentiality of Alcohol and Drug Abuse Patient Records regulations: The Federal rules restrict any use of the information to criminally investigate or prosecute any alcohol or drug abuse patient.[facility]In the event this information is protected by the Federal Confidentiality of Alcohol and Drug Abuse Patient Records regulations: The Federal rules restrict any use of the information to criminally investigate or prosecute any alcohol or drug abuse patient.[facility]In the event this information is protected by the Federal Confidentiality of Alcohol and Drug Abuse Patient Records regulations: The Federal rules restrict any use of the information to criminally investigate or prosecute any alcohol or drug abuse patient.[facility]In the event this information is protected by the Federal Confidentiality of Alcohol and Drug Abuse Patient Records regulations: The Federal rules restrict any use of the information to criminally investigate or prosecute any alcohol or drug abuse patient.[facility]In the event this information is protected by the Federal Confidentiality of Alcohol and Drug Abuse Patient Records regulations: The Federal rules restrict any use of the information to criminally investigate or prosecute any alcohol or drug abuse patient.[facility]In the event this information is protected by the Federal Confidentiality of Alcohol and Drug Abuse Patient Records regulations: The Federal rules restrict any use of the information to criminally investigate or prosecute any alcohol or drug abuse patient.[facility]In the event this information is protected by the Federal Confidentiality of Alcohol and Drug Abuse Patient Records regulations: The Federal rules restrict any use of the information to criminally investigate or prosecute any alcohol or drug abuse patient.[facility]In the event this information is protected by the Federal Confidentiality of Alcohol and Drug Abuse Patient Records regulations: The Federal rules restrict any use of the information to criminally investigate or prosecute any alcohol or drug abuse patient.[facility]In the event this information is protected by the Federal Confidentiality of Alcohol and Drug Abuse Patient Records regulations: The Federal rules restrict any use of the information to criminally investigate or prosecute any alcohol or drug abuse patient.[facility]In the event this information is protected by the Federal Confidentiality of Alcohol and Drug Abuse Patient Records regulations: The Federal rules restrict any use of the information to criminally investigate or prosecute any alcohol or drug abuse patient.[facility]In the event this information is protected by the Federal Confidentiality of Alcohol and Drug Abuse Patient Records regulations: The Federal rules restrict any use of the information to criminally investigate or prosecute any alcohol or drug abuse patient.[facility]In the event this information is protected by the Federal Confidentiality of Alcohol and Drug Abuse Patient Records regulations: The Federal rules restrict any use of the information to criminally investigate or prosecute any alcohol or drug abuse patient.[facility]In the event this information is protected by the Federal Confidentiality of Alcohol and Drug Abuse Patient Records regulations: The Federal rules restrict any use of the information to criminally investigate or prosecute any alcohol or drug abuse patient.[facility]In the event this information is protected by the Federal Confidentiality of Alcohol and Drug Abuse Patient Records regulations: The Federal rules restrict any use of the information to criminally investigate or prosecute any alcohol or drug abuse patient.[facility]In the event this information is protected by the Federal Confidentiality of Alcohol and Drug Abuse Patient Records regulations: The Federal rules restrict any use of the information to criminally investigate or prosecute any alcohol or drug abuse patient.[facility]In the event this information is protected by the Federal Confidentiality of Alcohol and Drug Abuse Patient Records regulations: The Federal rules restrict any use of the information to criminally investigate or prosecute any alcohol or drug abuse patient.[facility]In the event this information is protected by the Federal Confidentiality of Alcohol and Drug Abuse Patient Records regulations: The Federal rules restrict any use of the information to criminally investigate or prosecute any alcohol or drug abuse patient.[facility]In the event this information is protected by the Federal Confidentiality of Alcohol and Drug Abuse Patient Records regulations: The Federal rules restrict any use of the information to criminally investigate or prosecute any alcohol or drug abuse patient.[facility]In the event this information is protected by the Federal Confidentiality of Alcohol and Drug Abuse Patient Records regulations: The Federal rules restrict any use of the information to criminally investigate or prosecute any alcohol or drug abuse patient.[facility]In the event this information is protected by the Federal Confidentiality of Alcohol and Drug Abuse Patient Records regulations: The Federal rules restrict any use of the information to criminally investigate or prosecute any alcohol or drug abuse patient.[facility]In the event this information is protected by the Federal Confidentiality of Alcohol and Drug Abuse Patient Records regulations: The Federal rules restrict any use of the information to criminally investigate or prosecute any alcohol or drug abuse patient.[facility]In the event this information is protected by the Federal Confidentiality of Alcohol and Drug Abuse Patient Records regulations: The Federal rules restrict any use of the information to criminally investigate or prosecute any alcohol or drug abuse patient.[facility]In the event this information is protected by the Federal Confidentiality of Alcohol and Drug Abuse Patient Records regulations: The Federal rules restrict any use of the information to criminally investigate or prosecute any alcohol or drug abuse patient.[facility]In the event this information is protected by the Federal Confidentiality of Alcohol and Drug Abuse Patient Records regulations: The Federal rules restrict any use of the information to criminally investigate or prosecute any alcohol or drug abuse patient.[facility]In the event this information is protected by the Federal Confidentiality of Alcohol and Drug Abuse Patient Records regulations: The Federal rules restrict any use of the information to criminally investigate or prosecute any alcohol or drug abuse patient.[facility]In the event this information is protected by the Federal Confidentiality of Alcohol and Drug Abuse Patient Records regulations: The Federal rules restrict any use of the information to criminally investigate or prosecute any alcohol or drug abuse patient.[facility]In the event this information is protected by the Federal Confidentiality of Alcohol and Drug Abuse Patient Records regulations: The Federal rules restrict any use of the information to criminally investigate or prosecute any alcohol or drug abuse patient.[facility]In the event this information is protected by the Federal Confidentiality of Alcohol and Drug Abuse Patient Records regulations: The Federal rules restrict any use of the information to criminally investigate or prosecute any alcohol or drug abuse patient.[facility]In the event this information is protected by the Federal Confidentiality of Alcohol and Drug Abuse Patient Records regulations: The Federal rules restrict any use of the information to criminally investigate or prosecute any alcohol or drug abuse patient.[facility]In the event this information is protected by the Federal Confidentiality of Alcohol and Drug Abuse Patient Records regulations: The Federal rules restrict any use of the information to criminally investigate or prosecute any alcohol or drug abuse patient.[facility]In the event this information is protected by the Federal Confidentiality of Alcohol and Drug Abuse Patient Records regulations: The Federal rules restrict any use of the information to criminally investigate or prosecute any alcohol or drug abuse patient.[facility]In the event this information is protected by the Federal Confidentiality of Alcohol and Drug Abuse Patient Records regulations: The Federal rules restrict any use of the information to criminally investigate or prosecute any alcohol or drug abuse patient.[facility] HealthIn the event this information is protected by the Federal Confidentiality of Alcohol and Drug Abuse Patient Records regulations: The Federal rules restrict any use of the information to criminally investigate or prosecute any alcohol or drug abuse patient.[facility] HealthIn the event this information is protected by the Federal Confidentiality of Alcohol and Drug Abuse Patient Records regulations: The Federal rules restrict any use of the information to criminally investigate or prosecute any alcohol or drug abuse patient.[facility] HealthIn the event this information is protected by the Federal Confidentiality of Alcohol and Drug Abuse Patient Records regulations: The Federal rules restrict any use of the information to criminally investigate or prosecute any alcohol or drug abuse patient.[facility] HealthIn the event this information is protected by the Federal Confidentiality of Alcohol and Drug Abuse Patient Records regulations: The Federal rules restrict any use of the information to criminally investigate or prosecute any alcohol or drug abuse patient.[facility] HealthIn the event this information is protected by the Federal Confidentiality of Alcohol and Drug Abuse Patient Records regulations: The Federal rules restrict any use of the information to criminally investigate or prosecute any alcohol or drug abuse patient.[facility] HealthIn the event this information is protected by the Federal Confidentiality of Alcohol and Drug Abuse Patient Records regulations: The Federal rules restrict any use of the information to criminally investigate or prosecute any alcohol or drug abuse patient.[facility] HealthIn the event this information is protected by the Federal Confidentiality of Alcohol and Drug Abuse Patient Records regulations: The Federal rules restrict any use of the information to criminally investigate or prosecute any alcohol or drug abuse patient.[facility] HealthIn the event this information is protected by the Federal Confidentiality of Alcohol and Drug Abuse Patient Records regulations: The Federal rules restrict any use of the information to criminally investigate or prosecute any alcohol or drug abuse patient.[facility] HealthIn the event this information is protected by the Federal Confidentiality of Alcohol and Drug Abuse Patient Records regulations: The Federal rules restrict any use of the information to criminally investigate or prosecute any alcohol or drug abuse patient.[facility] HealthIn the event this information is protected by the Federal Confidentiality of Alcohol and Drug Abuse Patient Records regulations: The Federal rules restrict any use of the information to criminally investigate or prosecute any alcohol or drug abuse patient.[facility] HealthIn the event this information is protected by the Federal Confidentiality of Alcohol and Drug Abuse Patient Records regulations: The Federal rules restrict any use of the information to criminally investigate or prosecute any alcohol or drug abuse patient.[facility] HealthIn the event this information is protected by the Federal Confidentiality of Alcohol and Drug Abuse Patient Records regulations: The Federal rules restrict any use of the information to criminally investigate or prosecute any alcohol or drug abuse patient.[facility] HealthIn the event this information is protected by the Federal Confidentiality of Alcohol and Drug Abuse Patient Records regulations: The Federal rules restrict any use of the information to criminally investigate or prosecute any alcohol or drug abuse patient.[facility] HealthIn the event this information is protected by the Federal Confidentiality of Alcohol and Drug Abuse Patient Records regulations: The Federal rules restrict any use of the information to criminally investigate or prosecute any alcohol or drug abuse patient.[facility] HealthIn the event this information is protected by the Federal Confidentiality of Alcohol and Drug Abuse Patient Records regulations: The Federal rules restrict any use of the information to criminally investigate or prosecute any alcohol or drug abuse patient.[facility] HealthIn the event this information is protected by the Federal Confidentiality of Alcohol and Drug Abuse Patient Records regulations: The Federal rules restrict any use of the information to criminally investigate or prosecute any alcohol or drug abuse patient.[facility] HealthIn the event this information is protected by the Federal Confidentiality of Alcohol and Drug Abuse Patient Records regulations: The Federal rules restrict any use of the information to criminally investigate or prosecute any alcohol or drug abuse patient.[facility] HealthIn the event this information is protected by the Federal Confidentiality of Alcohol and Drug Abuse Patient Records regulations: The Federal rules restrict any use of the information to criminally investigate or prosecute any alcohol or drug abuse patient.[facility] HealthIn the event this information is protected by the Federal Confidentiality of Alcohol and Drug Abuse Patient Records regulations: The Federal rules restrict any use of the information to criminally investigate or prosecute any alcohol or drug abuse patient.[facility] HealthIn the event this information is protected by the Federal Confidentiality of Alcohol and Drug Abuse Patient Records regulations: The Federal rules restrict any use of the information to criminally investigate or prosecute any alcohol or drug abuse patient.[facility] HealthIn the event this information is protected by the Federal Confidentiality of Alcohol and Drug Abuse Patient Records regulations: The Federal rules restrict any use of the information to criminally investigate or prosecute any alcohol or drug abuse patient.[facility] HealthIn the event this information is protected by the Federal Confidentiality of Alcohol and Drug Abuse Patient Records regulations: The Federal rules restrict any use of the information to criminally investigate or prosecute any alcohol or drug abuse patient.[facility] HealthIn the event this information is protected by the Federal Confidentiality of Alcohol and Drug Abuse Patient Records regulations: The Federal rules restrict any use of the information to criminally investigate or prosecute any alcohol or drug abuse patient.[facility] HealthIn the event this information is protected by the Federal Confidentiality of Alcohol and Drug Abuse Patient Records regulations: The Federal rules restrict any use of the information to criminally investigate or prosecute any alcohol or drug abuse patient.[facility] HealthIn the event this information is protected by the Federal Confidentiality of Alcohol and Drug Abuse Patient Records regulations: The Federal rules restrict any use of the information to criminally investigate or prosecute any alcohol or drug abuse patient.[facility] HealthIn the event this information is protected by the Federal Confidentiality of Alcohol and Drug Abuse Patient Records regulations: The Federal rules restrict any use of the information to criminally investigate or prosecute any alcohol or drug abuse patient.[facility] HealthIn the event this information is protected by the Federal Confidentiality of Alcohol and Drug Abuse Patient Records regulations: The Federal rules restrict any use of the information to criminally investigate or prosecute any alcohol or drug abuse patient.[facility] HealthIn the event this information is protected by the Federal Confidentiality of Alcohol and Drug Abuse Patient Records regulations: The Federal rules restrict any use of the information to criminally investigate or prosecute any alcohol or drug abuse patient.[facility] HealthIn the event this information is protected by the Federal Confidentiality of Alcohol and Drug Abuse Patient Records regulations: The Federal rules restrict any use of the information to criminally investigate or prosecute any alcohol or drug abuse patient.[facility] HealthIn the event this information is protected by the Federal Confidentiality of Alcohol and Drug Abuse Patient Records regulations: The Federal rules restrict any use of the information to criminally investigate or prosecute any alcohol or drug abuse patient.[facility] HealthIn the event this information is protected by the Federal Confidentiality of Alcohol and Drug Abuse Patient Records regulations: The Federal rules restrict any use of the information to criminally investigate or prosecute any alcohol or drug abuse patient.[facility] HealthIn the event this information is protected by the Federal Confidentiality of Alcohol and Drug Abuse Patient Records regulations: The Federal rules restrict any use of the information to criminally investigate or prosecute any alcohol or drug abuse patient.[facility] HealthIn the event this information is protected by the Federal Confidentiality of Alcohol and Drug Abuse Patient Records regulations: The Federal rules restrict any use of the information to criminally investigate or prosecute any alcohol or drug abuse patient.[facility] HealthIn the event this information is protected by the Federal Confidentiality of Alcohol and Drug Abuse Patient Records regulations: The Federal rules restrict any use of the information to criminally investigate or prosecute any alcohol or drug abuse patient.[facility] HealthIn the event this information is protected by the Federal Confidentiality of Alcohol and Drug Abuse Patient Records regulations: The Federal rules restrict any use of the information to criminally investigate or prosecute any alcohol or drug abuse patient.[facility] HealthIn the event this information is protected by the Federal Confidentiality of Alcohol and Drug Abuse Patient Records regulations: The Federal rules restrict any use of the information to criminally investigate or prosecute any alcohol or drug abuse patient.[facility] HealthIn the event this information is protected by the Federal Confidentiality of Alcohol and Drug Abuse Patient Records regulations: The Federal rules restrict any use of the information to criminally investigate or prosecute any alcohol or drug abuse patient.[facility] HealthIn the event this information is protected by the Federal Confidentiality of Alcohol and Drug Abuse Patient Records regulations: The Federal rules restrict any use of the information to criminally investigate or prosecute any alcohol or drug abuse patient.[facility] HealthIn the event this information is protected by the Federal Confidentiality of Alcohol and Drug Abuse Patient Records regulations: The Federal rules restrict any use of the information to criminally investigate or prosecute any alcohol or drug abuse patient.[facility] HealthIn the event this information is protected by the Federal Confidentiality of Alcohol and Drug Abuse Patient Records regulations: The Federal rules restrict any use of the information to criminally investigate or prosecute any alcohol or drug abuse patient.[facility] HealthIn the event this information is protected by the Federal Confidentiality of Alcohol and Drug Abuse Patient Records regulations: The Federal rules restrict any use of the information to criminally investigate or prosecute any alcohol or drug abuse patient.[facility] HealthIn the event this information is protected by the Federal Confidentiality of Alcohol and Drug Abuse Patient Records regulations: The Federal rules restrict any use of the information to criminally investigate or prosecute any alcohol or drug abuse patient.[facility] HealthIn the event this information is protected by the Federal Confidentiality of Alcohol and Drug Abuse Patient Records regulations: The Federal rules restrict any use of the information to criminally investigate or prosecute any alcohol or drug abuse patient.[facility] HealthIn the event this information is protected by the Federal Confidentiality of Alcohol and Drug Abuse Patient Records regulations: The Federal rules restrict any use of the information to criminally investigate or prosecute any alcohol or drug abuse patient.[facility] HealthIn the event this information is protected by the Federal Confidentiality of Alcohol and Drug Abuse Patient Records regulations: The Federal rules restrict any use of the information to criminally investigate or prosecute any alcohol or drug abuse patient.[facility] HealthIn the event this information is protected by the Federal Confidentiality of Alcohol and Drug Abuse Patient Records regulations: The Federal rules restrict any use of the information to criminally investigate or prosecute any alcohol or drug abuse patient.[facility] HealthIn the event this information is protected by the Federal Confidentiality of Alcohol and Drug Abuse Patient Records regulations: The Federal rules restrict any use of the information to criminally investigate or prosecute any alcohol or drug abuse patient.[facility] HealthIn the event this information is protected by the Federal Confidentiality of Alcohol and Drug Abuse Patient Records regulations: The Federal rules restrict any use of the information to criminally investigate or prosecute any alcohol or drug abuse patient.[facility] HealthIn the event this information is protected by the Federal Confidentiality of Alcohol and Drug Abuse Patient Records regulations: The Federal rules restrict any use of the information to criminally investigate or prosecute any alcohol or drug abuse patient.[facility] HealthIn the event this information is protected by the Federal Confidentiality of Alcohol and Drug Abuse Patient Records regulations: The Federal rules restrict any use of the information to criminally investigate or prosecute any alcohol or drug abuse patient.[facility] HealthIn the event this information is protected by the Federal Confidentiality of Alcohol and Drug Abuse Patient Records regulations: The Federal rules restrict any use of the information to criminally investigate or prosecute any alcohol or drug abuse patient.[facility] HealthIn the event this information is protected by the Federal Confidentiality of Alcohol and Drug Abuse Patient Records regulations: The Federal rules restrict any use of the information to criminally investigate or prosecute any alcohol or drug abuse patient.[facility] Reason for Visit (unrecogniz ed section and content) Reason Comments Patient Update Results Reason Comments FYI-No Action Needed Urinary Retention Reason Comments Patient Question Reason Comments PSA Reason Comments Benign prostatic hyperplasia, unspecifie d whether lower urin Reason Comments Established Patient elevated liver enzym es Reason Comments Appointment Reason Comments Medicare Wellness Exam Reason Onset Date Comments Refill Request 02/14/2022 Reason Comments Diarrhea Reason Comments lab results Reason Comments Refill Request Reason Comments Liver Disease Reason Comments Orders Reason Comments Imm/Inj Reason Onset Date Comments Refill Request 05/15/2022 Reason Comments Patient Update Reason Comments Prostate Problem Reason Comments Orders Reason Comments Thoracentesis Reason Onset Date Comments Patient Update 06/26/2022 Reason Onset Date Comments Community Monitoring Outreach 06/28/2022 CD M check in engagement Reason Comments Results Reason Onset Date Comments Para Order Rooney 07/10/2022 Reason Comments Recheck Reason Comments Radiology IR TIPS consult Reason Onset Date Comments Patient Update 07/20/2022 Reason Comments pre op bronch Scheduled and confir med with patient. Reason Comments thorancestis order Reason Comments Established Patient Elevated Liver Enzym es Specialty Diagnoses / Procedures Referred By Contac t Referred To Contact ADMITTING Diagnoses Bronchiolar disease Procedures THORACENTESIS NEEDLE/CATH PLEURA W/IMAGING THORACENTESIS NEEDLE OR CATHETER ASPIRATION OF THE PLEURAL SPACE W IMAGING GUIDANCE [facility] Pulm Lab H23 [address] [address] Referral ID Status Reason Start Date Expiration Date Visits Re quested Visits Authorized [id number] 1 1 Reason Comments Returning Patient's Call Lvm to schedule weekly TAP Reason Comments Returning Patient's Call Confirmed apt o n 3/6 with pt Reason Comments Returning Patient's Call Pt confirmed ap t 7 covid test Reason Onset Date Comments community monitoring outreach 08/21/2022 CD M outreach telephonic Reason Onset Date Comments Patient Update 08/22/2022 Reason Comments pre op bronch Scheduled and confir med with patient. Reason Comments medication question Reason Comments Consult Possible right ingui nal hernia Reason Onset Date Comments Refill Request 09/29/2022 Reason Onset Date Comments community monitoring outreach 10/03/2022 CD M outreach telephonic Reason Comments Referral - Liver Txp Intake Reason Onset Date Comments Refill Request 10/06/2022 Reason Comments Radio Gen HB6 Reason Comments XRAY FOLLOW UP Reason Comments Consult Specialty Diagnoses / Procedures Referred By Contac t Referred To Contact General Surgery Diagnoses Right inguinal hernia Procedures CONSULT TO GENERAL SURGERY OFFICE/OUTPATIENT [facility] MDM 60-74 MINUTES Willem Madsen MD [address] [place] [address] Referral ID Status Reason Start Date Expiration Date V isits Requested Visits Authorized [id number] Closed PCP Requested Referral 09/04/2022 09/04/2023 1 1 Reason Comments Reminder Call OLT Eval Appt's Reason Comments Transplant Evaluation Consent Education Of Patient/family Reason Comments Spirometry Specialty Diagnoses / Procedures Referred By Contac t Referred To Contact [facility] Diagnoses Liver transplant candidate DURANT (nonalcoholic steatohepatitis) Procedures SPIROMETRY BASELINE ONLY SPMTRY W/VC EXPIRATORY JELANI W/WO MXML VOL VNTJ O'Preston, Tevin S, MD [address] [place] [address] [facility] [place] [address] [place] [address] Referral ID Status Reason Start Date Expiration Date V isits Requested Visits Authorized [id number] Closed Auto-Generate d Referral 10/16/2022 11/02/2023 1 1 Reason Comments Dental Clearance - Transplant Reason Comments Patient Education Specialty Diagnoses / Procedures Referred By Contac t Referred To Contact Anesthesiology Diagnoses Liver transplant candidate DURANT (nonalcoholic steatohepatitis) Procedures CONSULT TO ANESTHESIOLOGY OFFICE/OUTPATIENT [facility] 60-74 MINUTES Tevin De La Cruz MD [address] [place] [address] Referral ID Status Reason Start Date Expiration Date V isits Requested Visits Authorized [id number] Closed PCP Requested Referral 10/16/2022 10/03/2023 [address] Specialty Diagnoses / Procedures Referred By Contac t Referred To Contact CT IMAGING Diagnoses Liver transplant candidate DURANT (nonalcoholic steatohepatitis) Procedures CT CHEST WO IVCON DIAGNOSTIC COMPUTED TOMOGRAPHY THORAX W/O CNTRST Tevin De La Cruz MD [address] [place] [address] Ct Imaging Referral ID Status Reason Start Date Expiration Date V isits Requested Visits Authorized [id number] Closed Auto-Generate d Referral 10/16/2022 11/02/2023 1 1 Reason Comments Appointment Marketing Project Manager - Other Specialty Diagnoses / Procedures Referred By Contac t Referred To Contact Infectious Diseases Diagnoses Liver transplant candidate DURANT (nonalcoholic steatohepatitis) Procedures CONSULT TO INFECTIOUS DISEASES OFFICE/OUTPATIENT [facility] 60-74 MINUTES Tevin De La Cruz MD [address] [facility] [place] [id number] Referral ID Status Reason Start Date Expiration Date V isits Requested Visits Authorized [id number] Closed PCP Requested Referral 10/16/2022 10/03/2023 1 1 Reason Comments Med Change Request Reason Comments Patient Question - Paracentesis Reason Comments Appointment Reason Comments Medication Problem Reason Comments Liver Disease Reason Comments Patient Update Change Appt to 12/19 virtual Reason Onset Date Comments community monitoring outreach 12/18/2022 CD M outreach telephonic Reason Comments Cardiac Preop Checklist Specialty Diagnoses / Procedures Referred By Contac t Referred To Contact Cardiology Diagnoses Coronary artery 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 artery of [place] heart, unspecified whether angina present Procedures CONSULT TO CARDIOLOGY OFFICE/OUTPATIENT [facility] 60-74 MINUTES Tevin De La Cruz MD [address] [place] [id number] Referral ID Status Reason Start Date Expiration Date V isits Requested Visits Authorized [id number] Closed PCP Requested Referral 10/16/2022 10/03/2023 1 1 Reason Comments dermatology clearance Reason Comments Follow Up Reason Onset Date Comments community monitoring outreach 01/16/2023 CD M outreach telephonic Reason Comments OLT selection mtg pt update Reason Comments Follow Up Returning Patient's Call Reason Comments OLT UNOS lisitng pt notification Reason Onset Date Comments Refill Request 01/29/2023 Reason Comments Appointment Returning Patient's Call Reason Onset Date Comments Imm/Inj Immunizations 03/12/2023 Flu vaccination Reason Comments Organ Offer Reason Comments Transplant Serologies Reason Comments Home Care Confirmation Call Specialty Diagnoses / Procedures Referred By Contac t Referred To Contact CT IMAGING Diagnoses Portal hypertension with esophageal varices (HCC) 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) Procedures CT LIVER WO/W IVCON CT ABDOMEN W & W/O CONTRAST Yane Miller APRN.EMISSIONS TECHNICIAN [address] [place] [id number] [facility] [place] [address] Referral ID Status Reason Start Date Expiration Date V isits Requested Visits Authorized [id number] Closed Auto-Generate d Referral 07/17/2022 08/16/2023 1 1 Reason Comments New Patient Specialty Diagnoses / Procedures Referred By Contac t Referred To Contact Cardiology Diagnoses Coronary arteriosclerosis in [place] artery Stented coronary artery Procedures CONSULT TO CARDIOLOGY OFFICE/OUTPATIENT [facility] MDM 60-74 MINUTES Willem Madsen MD [address] [place] [address] Referral ID Status Reason Start Date Expiration Date V isits Requested Visits Authorized [id number] Closed PCP Requested Referral 10/02/2022 10/02/2023 1 1 Reason Comments Established Patient Reason Comments Pathology review Reason Comments Home Care FYI: He has progress ed well towards his nursing goals. He expresses he has an understanding of his continued care regarding his transplant including labs as directed taking med's as directed ability to identify possible transplant rejection and when to contact the transplant team. Pt expresses a desire for discharge from Home care today. he has been given his discharge instructions and express understanding. Reason Comments Medication Dosage Adjustment FK dropped to 3mg BID. Reason Onset Date Comments community monitoring outreach 05/14/2023 CD M outreach telephonic Reason Comments Marketing Project Manager - Other Reason Comments F/U 6 months Reason Onset Date Comments community monitoring outreach 08/30/2023 CD M outreach telephonic Reason Onset Date Comments community monitoring outreach 10/29/2023 CD M outreach telephonic Reason Onset Date Comments community monitoring outreach 12/24/2023 CD M outreach telephonic Reason Onset Date Comments Refill Request 02/05/2024 Reason Onset Date Comments community monitoring outreach 02/18/2024 CD M outreach call Reason Onset Date Comments community monitoring outreach 04/12/2024 Mo nthly cdm call Reason Onset Date Comments community monitoring outreach 05/23/2024 CD M outreach call Reason Onset Date Comments Refill Request 05/26/2024 Reason Onset Date Comments Refill Request 05/28/2024 Reason Comments CARD Follow Up 6 Month FOLLOW UP TO CAD Reason Onset Date Comments Refill Request 07/23/2024 Reason Comments F/U 6 months recommend ing cholesterol labs Reason Onset Date Comments Refill Request 11/11/2024 Reason Comments Follow Up 6 month follow up Reason Comments Consult Denies GI issues. Du e for colonoscopy Reason Comments Pre-Op Visit Care Teams (unrecognized sec tion and content) Sampler First Relationship Specialty Start Date End Date Willem Madsen MD [address] [place], [place] [phone] PCP - General 07/18/07 Josi King, THIAGO [address] [place], [place] [phone] [employer] 09/12/21 Sampler First Relationship Specialty Start Date End Date Willem Madsen MD [address] [place] [address] PCP - General 07/18/07 [place] [address] [place] [address] [employer] 09/12/21 Sampler First Relationship Specialty Start Date End Date Willem Madsen MD [address] [place] [address] PCP - General 07/18/07 [place] [address] [place] [address] [employer] 09/12/21 Sampler First Relationship Specialty Start Date End Date Willem Madsen MD [address] [place] [address] PCP - General 07/18/07 [place] [address] [place] [address] [employer] 09/12/21 Sampler First Relationship Specialty Start Date End Date Willem Madsen MD [address] [place] [address] PCP - General 07/18/07 [place] [address] [place] [address] [employer] 09/12/21 Sampler First Relationship Specialty Start Date End Date Willem Madsen MD [address] [place] [address] PCP - General 07/18/07 Danna Muro superintendent mechanicalFar[employer] Family Practice 11/10/21 Sampler First Relationship Specialty Start Date End Date Willem Madsen MD [address] [place] [address] PCP - General 07/18/07 Danna Muro RN [employer] [facility] 11/10/21 Sampler First Relationship Specialty Start Date End Date Willem Madsen MD [address] [place] [address] PCP - General 07/18/07 Danna Muro RN [employer] [facility] 11/10/21 Sampler First Relationship Specialty Start Date End Date Willem Madsen MD [address] [place] [address] PCP - General 07/18/07 Danna Muro RN [employer] [facility] 11/10/21 Sampler First Relationship Specialty Start Date End Date Willem Madsen MD [address] [place] [address] PCP - General 07/18/07 Danna Muro RN [employer] [facility] 11/10/21 Sampler First Relationship Specialty Start Date End Date Willem Madsen MD [address] [place] [address] PCP - General 07/18/07 Danna Muro RN [employer] [facility] 11/10/21 Sampler First Relationship Specialty Start Date End Date Willem Madsen MD [address] [place] [address] PCP - General 07/18/07 Danna Muro RN [employer] [facility] 11/10/21 Sampler First Relationship Specialty Start Date End Date Willem Madsen MD [address] [place] [address] PCP - General 07/18/07 Danna Muro RN [employer] Family [facility] 11/10/21 Sampler First Relationship Specialty Start Date End Date Willem Madsen MD [address] [place] [address] PCP - General 07/18/07 Danna Muro, superintendent mechanicalFar[employer] Family [facility] 11/10/21 Sampler First Relationship Specialty Start Date End Date Willem Madsen MD [address] [place] [address] PCP - General 07/18/07 Danna Muro superintendent mechanicalFar[employer] Family [facility] 11/10/21 Sampler First Relationship Specialty Start Date End Date Willem Madsen MD [address] [place] [address] PCP - General 07/18/07 Danna Muro superintendent mechanicalFar[employer] [facility] Medicine 11/10/21 Sampler First Relationship Specialty Start Date End Date Willem Madsen MD [address] [place] [address] PCP - General 07/18/07 Danna Muro superintendent mechanicalFar[employer] Family Medicine 11/10/2104/10 Florence Baez, THIAGO [address] [place] [address] [employer] Family Medicine 11/10/21 Sampler First Relationship Specialty Start Date End Date Willem Madsen MD [address] [place] [address] PCP - General 07/18/07 Florence Baez, THIAGO [address] [place] [address] [employer] Family Medicine 11/10/21 Sampler First Relationship Specialty Start Date End Date Willem Madsne MD [address] [place] [address] PCP - General 07/18/07 Florence Baez, RN [address] [place] [address] [employer] Family Medicine 11/10/21 Sampler First Relationship Specialty Start Date End Date Willem Madsen MD [address] [place] [address] PCP - General 07/18/07 Florence Baez, RN [address] [place] [address] [employer] Family Medicine 11/10/21 Sampler First Relationship Specialty Start Date End Date Willem Madsen MD [address] [place] [address] PCP - General 07/18/07 Florence Baez, RN [address] [place] [address] [employer] Family Medicine 04/10/22 Sampler First Relationship Specialty Start Date End Date Willem Madsen MD [address] [place] [address] PCP - General 07/18/07 Florence Baez, RN [address] [place] [address] [employer] [facility] 04/10/22 Sampler First Relationship Specialty Start Date End Date Willem Madsen MD [address] [place] [address] PCP - General 07/18/07 Florence Baez, RN [address] [place] [address] [employer] Family [facility] 04/10/22 Sampler First Relationship Specialty Start Date End Date Willem Madsen MD [address] [place] [address] PCP - General 07/18/07 Florence Baez, RN [address] [place] [address] [employer] Family Medicine 04/10/22 Sampler First Relationship Specialty Start Date End Date Willem Madsen MD [address] [place] [address] PCP - General 07/18/07 Florence Baez, RN [address] [place] [address] [employer] [facility] 04/10/22 Sampler First Relationship Specialty Start Date End Date Willem Madsen MD [address] [place] [address] PCP - General 07/18/07 Florence Baez, RN [address] [place] [address] [employer] [facility] 04/10/22 Sampler First Relationship Specialty Start Date End Date Willem Madsen MD [address] [place] [address] PCP - General 07/18/07 Florence Baez, THIAGO [address] [place] [address] [employer] [facility] 04/10/22 Sampler First Relationship Specialty Start Date End Date Willem Madsen MD [address] [place] [address] PCP - General 07/18/07 Florence Baez, RN [address] [place] [address] [employer] [facility] 04/10/22 Sampler First Relationship Specialty Start Date End Date Willem Madsen MD [address] [place] [address] PCP - General 07/18/07 Florence Baez, RN [address] [place] [address] [employer] Family Medicine 04/10/22 Sampler First Relationship Specialty Start Date End Date Willem Madsen MD [address] [place] [address] PCP - General 07/18/07 Florence Baez, RN [address] [place] [address] [employer] Family Medicine 04/10/22 Sampler First Relationship Specialty Start Date End Date Willem Madsen MD [address] [place] [address] PCP - General 07/18/07 Florence Baez, RN [address] [place] [address] [employer] Family Medicine 04/10/22 Sampler First Relationship Specialty Start Date End Date Willem Madsen MD [address] [place] [address] PCP - General 07/18/07 Florence Baez, RN [address] [place] [address] [employer] Family Medicine 04/10/22 Sampler First Relationship Specialty Start Date End Date Willem Madsen MD [address] [place] [address] PCP - General 07/18/07 Florence Baez, RN [address] [place] [address] [employer] Family Medicine 04/10/22 Sampler First Relationship Specialty Start Date End Date Willem Madsen MD [address] [place] [address] PCP - General 07/18/07 Florence Baez, RN [address] [place] [address] [employer] Family Medicine 04/10/22 Sampler First Relationship Specialty Start Date End Date Willem Madsen MD [address] [place] [address] PCP - General 07/18/07 Florence Baez, RN [address] [place] [address] [employer] Family Medicine 04/10/22 Sampler First Relationship Specialty Start Date End Date Willem Madsen MD [address] [place] [address] PCP - General 07/18/07 Florence Baez, RN [address] [place] [address] [employer] Family Medicine 04/10/22 Sampler First Relationship Specialty Start Date End Date Willem Madsen MD [address] [place] [address] PCP - General 07/18/07 Florence Baez, RN [address] [place] [address] [employer] [facility] Medicine 04/10/22 Sampler First Relationship Specialty Start Date End Date Willem Madsen MD [address] [place] [address] PCP - General 07/18/07 Florence Baez, RN [address] [place] [address] [employer] Family Medicine 04/10/22 Sampler First Relationship Specialty Start Date End Date Willem Madsen MD [address] [place] [address] PCP - General 07/18/07 Florence Baez, RN [address] [place] [address] [employer] Family Medicine 04/10/22 Sampler First Relationship Specialty Start Date End Date Willem Madsen MD [address] [place] [address] PCP - General 07/18/07 Florence Baez, RN [address] [place] [address] [employer] Family Medicine 04/10/22 Sampler First Relationship Specialty Start Date End Date Willem Madsen MD [address] [place] [address] PCP - General 07/18/07 Florence Baez, RN [address] [place] [facility] [place] [address] [employer] Family Medicine 04/10/22 Sampler First Relationship Specialty Start Date End Date Willem Madsen MD [address] [place] [address] PCP - General 07/18/07 Florence Baez, RN [address] [place] [address] [employer] Family [facility] 04/10/22 Sampler First Relationship Specialty Start Date End Date Willem Madsen MD [address] [place] [address] PCP - General 07/18/07 Florence Baez, RN [address] [place] [address] [employer] Family [facility] 04/10/22 Sampler First Relationship Specialty Start Date End Date Willem Madsen MD [address] [place] [address] PCP - General 07/18/07 Florence Baez, RN [address] [place] [address] [employer] Family Medicine 04/10/22 Sampler First Relationship Specialty Start Date End Date Willem Madsen MD [address] [place] [address] PCP - General 07/18/07 Florence Baez, RN [address] [place] [address] [employer] Family Medicine 04/10/22 Sampler First Relationship Specialty Start Date End Date Willem Madsen MD [address] [place] [address] PCP - General 07/18/07 Florence Baez, RN [address] [place] [address] [employer] Family Medicine 04/10/22 Sampler First Relationship Specialty Start Date End Date Willem Madsen MD [address] [place] [address] PCP - General 07/18/07 Florence Baez, RN [address] [place] [address] [employer] Family Medicine 04/10/22 Sampler First Relationship Specialty Start Date End Date Willem Madsen MD [address] [place] [address] PCP - General 07/18/07 Florence Baez, RN [address] [place] [address] [employer] Family Medicine 04/10/22 Sampler First Relationship Specialty Start Date End Date Willem Madsen MD [address] [place] [address] PCP - General 07/18/07 Florence Baez, RN [address] [place] [address] [employer] Family Medicine 04/10/22 Sampler First Relationship Specialty Start Date End Date Willem Madsen MD [address] [place] [address] PCP - General 07/18/07 Florence Baez, RN [address] [place] [address] [employer] Family Medicine 04/10/22 Sampler First Relationship Specialty Start Date End Date Willem Madsen MD [address] [place] [address] PCP - General 07/18/07 Florence Baez, RN [address] [place] [address] [employer] Family Medicine 04/10/22 Sampler First Relationship Specialty Start Date End Date Willem Madsen MD [address] [place] [address] PCP - General 07/18/07 Florence Baez, RN [address] [place] [address] [employer] Family Medicine 04/10/22 Sampler First Relationship Specialty Start Date End Date Willem Madsen MD [address] [place] [address] PCP - General 07/18/07 Florence Baez, RN [address] [place] [address] [employer] [facility] Medicine 04/10/22 Sampler First Relationship Specialty Start Date End Date Willem Madsen MD [address] [place] [address] PCP - General 07/18/07 Florence Baez, RN [address] [place] [address] [employer] [facility] 04/10/22 Sampler First Relationship Specialty Start Date End Date Willem Madsen MD [address] [place] [address] PCP - General 07/18/07 Florence Baez, RN [address] [place] [address] [employer] Family Medicine 04/10/22 Sampler First Relationship Specialty Start Date End Date Willem Madsen MD [address] [place] [address] PCP - General 07/18/07 Florence Baez, RN [address] [place] [address] [employer] Family Medicine 04/10/22 Sampler First Relationship Specialty Start Date End Date Willem Madsen MD [address] [place] [address] PCP - General 07/18/07 Florence Baez, RN [address] [place] [address] [employer] Family [facility] 04/10/22 Sampler First Relationship Specialty Start Date End Date Willem Madsen MD [address] [place] [address] PCP - General 07/18/07 Florence Baez, RN [address] [place] [address] [employer] [facility] Medicine 04/10/22 Sampler First Relationship Specialty Start Date End Date Willem Madsen MD [address] [place] [address] PCP - General 07/18/07 Florence Baez, RN [address] [place] [address] [employer] [facility] 04/10/22 Sampler First Relationship Specialty Start Date End Date Willem Madsen MD [address] [place] [address] PCP - General 07/18/07 Florence Baez, RN [address] [place] [address] [employer] [facility] 04/10/22 Sampler First Relationship Specialty Start Date End Date Willem Madsen MD [address] [place] [address] PCP - General 07/18/07 Florence Baez, RN [address] [place] [address] [employer] [facility] Medicine 04/10/22 Sampler First Relationship Specialty Start Date End Date Willem Madsen MD [address] [place] [address] PCP - General 07/18/07 Florence Baez, RN [address] [place] [address] [employer] [facility] 04/10/22 Sampler First Relationship Specialty Start Date End Date Willem Madsen MD [address] [place] [address] PCP - General 07/18/07 Florence Baez, RN [address] [place] [address] [employer] [facility] 04/10/22 Sampler First Relationship Specialty Start Date End Date Willem Madsen MD [address] [place] [address] PCP - General 07/18/07 Florence Baez, RN [address] [place] [address] [employer] [facility] 04/10/22 Sampler First Relationship Specialty Start Date End Date Willem Madsen MD [address] [place] [address] PCP - General 07/18/07 Florence Baez, RN [address] [place] [address] [employer] [facility] 04/10/22 Sampler First Relationship Specialty Start Date End Date Willem Madsen MD [address] [place] [address] PCP - General 07/18/07 Florence Baez, RN [address] [place] [address] [employer] [facility] 04/10/22 Sampler First Relationship Specialty Start Date End Date Willem Madsen MD [address] [place] [address] PCP - General 07/18/07 Florence Baez, RN [address] [place] [address] [employer] Family [facility] 04/10/22 Sampler First Relationship Specialty Start Date End Date Willem Madsen MD [address] [place] [address] PCP - General 07/18/07 Florence Baez, RN [address] [place] [address] [employer] [facility] 04/10/22 Sampler First Relationship Specialty Start Date End Date Willem Madsen MD [address] [place] [address] PCP - General 07/18/07 Florence Baez, RN [address] [place] [address] [employer] [facility] 04/10/22 Sampler First Relationship Specialty Start Date End Date Wlilem Madsen MD [address] [place] [address] PCP - General 07/18/07 Florence Baez, RN [address] [place] [address] [employer] [facility] 04/10/22 Sampler First Relationship Specialty Start Date End Date Willem Madsen MD [address] [place] [address] PCP - General 07/18/07 Florence Baez, RN [address] [place] [address] [employer] Family Medicine 04/10/22 Sampler First Relationship Specialty Start Date End Date Willem Madsen MD [address] [place] [address] PCP - General 07/18/07 Florence Baez, RN [address] [place] [address] [employer] Family [facility] 04/10/22 Sampler First Relationship Specialty Start Date End Date Willem Madsen MD [address] [place] [address] PCP - General 07/18/07 Florence Baez, RN [address] [place] [address] [employer] [facility] 04/10/22 Sampler First Relationship Specialty Start Date End Date Willem Madsen MD [address] [place] [address] PCP - General 07/18/07 Florence Baez, RN [address] [place] [address] [employer] Family Medicine 04/10/22 Sampler First Relationship Specialty Start Date End Date Willem Madsen MD [address] [place] [address] PCP - General 07/18/07 Florence Baez RN [address] [place] [address] [employer] Family [facility] 04/10/22 Sampler First Relationship Specialty Start Date End Date Willem Madsen MD [address] [place] [address] PCP - General 07/18/07 Florence Baez, RN [address] [place] [address] [employer] Family Medicine 04/10/22 Pily Glass RN [facility] [address] [place] [address] Registered Nurse Transplant Center 04/02/23 Sampler First Relationship Specialty Start Date End Date Willem Madsen MD [address] [place], [place] 478261 PCP - General 07/18/07 Florence Baez RN [address] [place] [address] [employer] Family Medicine 04/10/22 Pily Glass RN [facility] [address] [place] [address] Registered Nurse Transplant Center 04/02/23 Marco Antonio Landry MD [address] [place], [place] [id number] Referring General Surgery 04/06/23 Marco Antonio Landry MD [address] [place], [place] [id number] Home Care Provider General Surgery 04/06/23 Sampler First Relationship Specialty Start Date End Date Willem Madsen MD [address] [place] [address] PCP - General 07/18/07 Florence Baez RN [address] [place] [address] [employer] Family Medicine 04/10/22 Pily Glass RN [facility] [address] [place] [address] Registered Nurse Transplant Center 04/02/23 Marco Antonio Landry MD [address] [place], [place] 1007995 Referring General Surgery 04/06/23 Marco Antonio Landry MD [address] [place] [address] Home Care Provider General Surgery 04/06/23 Alban Hurtado, THIAGO [address] [place], [place] [id number] [employer] Post Acute Care 04/08/23 Sampler First Relationship Specialty Start Date End Date Willem Madsen MD [address] [place], [place] 660511 PCP - General 07/18/07 Florence Baez, RN [address] [place] [address] [employer] Family Medicine 04/10/22 Pily Glass RN [facility] [address] [place] [address] Registered Nurse Transplant Center 04/02/23 Marco Antonio Landry MD [address] [place] [address] Referring General Surgery 04/06/23 Marco Antonio Landry MD [address] [place] [address] Home Care Provider General Surgery 04/06/23 Alban Hurtado RN [address] [place], [place] [phone] [employer] Post Acute Care 04/08/23 Sampler First Relationship Specialty Start Date End Date Willem Madsen MD [address] [facility], [place] [id number] PCP - General 07/18/07 Florence Baez RN [address] [place] [address] [employer] Family Medicine 04/10/22 Pily Glass RN [facility] [address] [place] [address] Registered Nurse Transplant Center 04/02/23 Marco Antonio Landry MD [address] [place] [address] Referring General Surgery 04/06/23 Marco Antonio Ladnry MD [address] [place], [place] [id number] Home Care Provider General Surgery 04/06/23 Alban Hurtado, RN [address] [place], [place] [phone] [employer] Post Acute Care 04/08/23 Sampler First Relationship Specialty Start Date End Date Willem Madsen MD [address] [place], [place] [id number] PCP - General 07/18/07 Florence Baez RN [address] [place] [address] [employer] Family Medicine 04/10/22 Sampler First Relationship Specialty Start Date End Date Willem Madsen MD [address] [place], [place] [id number] PCP - General 07/18/07 Florence Baez, THIAGO [address] [place], [place] 6497031 [employer] Family Medicine 04/10/22 Pily Glass RN [facility] [address] [place] [address] Registered Nurse Transplant Center 04/02/23 Marco Antonio Landry MD [address] [place], [place] [phone] Referring General Surgery 04/06/23 Marco Antonio Landry MD [address] [place] [address] Home Care Provider General Surgery 04/06/23 Alban Hurtado RN [address] [place], [place] [phone] [employer] Post Acute Care 04/08/23 Sampler First Relationship Specialty Start Date End Date Willem Madsen MD [address] [place] [address] PCP - General 07/18/07 Florence Baez, THIAGO [address] [place] [address] [employer] Family Medicine 04/10/22 Pily Glass, RN [facility] [address] [place] [address] Registered Nurse Transplant Center 04/02/23 Marco Antonio Landry MD [address] [place] [address] Referring General Surgery 04/06/23 Marco Antonio Landry MD [address] [place] [address] Home Care Provider General Surgery 04/06/23 Alban Hurtado RN [address] [place] [address] [employer] Post Acute Care 04/08/23 Sampler First Relationship Specialty Start Date End Date Willem Madsen MD [address] [place], [place] 437321 PCP - General 07/18/07 Florence Baez RN [address] [place] [address] [employer] Family Medicine 04/10/22 Pily Glass RN [facility] [address] [place] [address] Registered Nurse Transplant Center 04/02/23 Marco Antonio Landry MD [address] [place] [address] Referring General Surgery 04/06/23 Marco Antonio Landry MD [address] [place] [address] Home Care Provider General Surgery 04/06/23 Alban Hurtado RN [address] [place], [place] [phone] [employer] Post Acute Care 04/08/23 Sampler First Relationship Specialty Start Date End Date Willem Madsen MD [address] [place], [place] [id number] PCP - General 07/18/07 Florence Baez RN [address] [place] [address] [employer] Family Medicine 04/10/22 Pily Glass RN [facility] [address] [place] [address] Registered Nurse Transplant Center 04/02/23 Marco Antonio Landry MD [address] [place] [address] Referring General Surgery 04/06/23 Marco Antonio Landry MD [address] [place] [address] Home Care Provider General Surgery 04/06/23 Alban Hurtado RN [address] [place], [place] [id number] Echo Vasc Tech Post Acute Care 04/08/23 Sampler First Relationship Specialty Start Date End Date Willem Madsen MD [address] [place], [place] [id number] PCP - General 07/18/07 Florence Baez RN [address] [place] [address] Farmer D[employer]ified [employer] Family Medicine 04/10/22 Pily Glass RN [facility] [address] [place] [address] Registered Nurse Transplant Center 04/02/23 Marco Antonio Landry MD [address] [place] [address] Referring General Surgery 04/06/23 Marco Antonio Landry MD [address] [place] [address] Home Care Provider General Surgery 04/06/23 [place] [address] [place] [address] Echo Vasc Tech Post Acute Care 04/08/23 Sampler First Relationship Specialty Start Date End Date Willem Madsen MD [address] [place] [address] PCP - General 07/18/07 Florence Baez, THIAGO [address] [place] [address] [employer] Family Medicine 04/10/22 Pily Glass RN [facility] [address] [place] [address] Registered Nurse Transplant Center 04/02/23 Marco Antonio Landry MD [address] [place] [address] Referring General Surgery 04/06/23 Marco Antonio Landry MD [address] [place] [address] Home Care Provider General Surgery 04/06/23 Alban Hurtado RN [address] [place], [place] [id number] Echo Vasc Tech Post Acute Care 04/08/23 Sampler First Relationship Specialty Start Date End Date Willem Madsen MD [address] [place] [address] PCP - General 07/18/07 Florence Baez, THIAGO [address] [place], [place] [id number] [employer] Family Medicine 04/10/22 Pily Glass RN [facility] [address] [place] [address] Registered Nurse Transplant Center 04/02/23 Marco Antonio Landry MD [address] [place] [address] Referring General Surgery 04/06/23 Marco Antonio Landry MD [address] [place], [place] [id number] Home Care Provider General Surgery 04/06/23 Sampler First Relationship Specialty Start Date End Date Willem Madsen MD [address] [place], [place] 615581 PCP - General 07/18/07 Florence Baez RN [address] [place] [address] [employer] Family Medicine 04/10/22 Pily Glass RN [facility] [address] [place] [address] Registered Nurse Transplant Center 04/02/23 Marco Antonio Landry MD [address] [place], [place] [phone] Referring General Surgery 04/06/23 Marco Antonio Landry MD [address] [place], [place] [phone] Home Care Provider General Surgery 04/06/23 Sampler First Relationship Specialty Start Date End Date Willem Madsen MD [address] [place] [address] PCP - General 07/18/07 Flroence Baez RN [address] [place], [place] [id number] Farmer [employer] Family Medicine 04/10/22 Pily Glass RN [facility] [address] [place] [address] Registered Nurse Transplant Center 04/02/23 Marco Antonio Landry MD [address] [place], [place] [phone] Referring General Surgery 04/06/23 Marco Antonio Landry MD [address] [place], [place] [phone] Home Care Provider General Surgery 04/06/23 Sampler First Relationship Specialty Start Date End Date Willem Madsen MD [address] [place] [address] PCP - General 07/18/07 Florence Baez RN [address] [place] [address] [employer] Family Medicine 04/10/22 Pily Glass RN [facility] [address] [place] [address] Registered Nurse Transplant Center 04/02/23 Marco Antonio Landry MD [address] [place], [place] [phone] Referring General Surgery 04/06/23 Marco Antonio Landry MD [address] [place] [address] Home Care Provider General Surgery 04/06/23 Sampler First Relationship Specialty Start Date End Date Willem Madsen MD [address] [place], [place] 780461 PCP - General 07/18/07 Florence Baez RN [address] [place] [address] [employer] Family Medicine 04/10/22 Pily Glass RN [facility] [address] [place] [address] Registered Nurse Transplant Center 04/02/23 Marco Antonio Landry MD [address] [place], [place] [phone] Referring General Surgery 04/06/23 Marco Antonio Landry MD [address] [place], [place] [phone] Home Care Provider General Surgery 04/06/23 Sampler First Relationship Specialty Start Date End Date Willem Madsen MD [address] [place], [place] 178691 PCP - General 07/18/07 Florence Baez RN [address] [place] [address] Farmer [employer] Family Medicine 04/10/22 Pily Glass RN [facility] [address] [place] [address] Registered Nurse Transplant Center 04/02/23 Marco Antonio Landry MD [address] [place], [place] [phone] Referring General Surgery 04/06/23 Marco Antonio Landry MD [address] [place], [place] [phone] Home Care Provider General Surgery 04/06/23 Sampler First Relationship Specialty Start Date End Date Willem Madsen MD [address] [place] [address] PCP - General 07/18/07 Florence Baez, THIAGO [address] [place] [address] [employer] Family Medicine 04/10/22 Pily Glass, RN [facility] [address] [place] [address] Registered Nurse Transplant Center 04/02/23 Marco Antonio Landry MD [address] [place], [place] 2995195 Referring General Surgery 04/06/23 Mraco Antonio Landry MD [address] [place], [place] 8211095 Home Care Provider General Surgery 04/06/23 Sampler First Relationship Specialty Start Date End Date Willem Madsen MD [address] [place] [address] PCP - General 07/18/07 Florence Baez RN [address] [place] [address] Farmer [employer] Family Medicine 04/10/22 Pily Glass RN [facility] [address] [place] [address] Registered Nurse Transplant Center 04/02/23 Marco Antonio Landry MD [address] [place], [place] 9403195 Referring General Surgery 04/06/23 Marco Antonio Landry MD [address] [place], [place] 05[address] Home Care Provider General Surgery 04/06/23 Sampler First Relationship Specialty Start Date End Date Willem Madsen MD [address] [place] [address] PCP - General 07/18/07 Florence Baez RN [address] [place] [address] Farmer [employer] Family Medicine 04/10/22 Pily Glass, RN [facility] [address] [place] [address] Registered Nurse Transplant Center 04/02/23 Marco Antonio Landry MD [address] [place] [address] Referring General Surgery 04/06/23 Marco Antonio Landry MD [address] [place], [place] 1357195 Home Care Provider General Surgery 04/06/23 Sampler First Relationship Specialty Start Date End Date Willem Madsen MD [address] [place], [place] 138761 PCP - General 07/18/07 Florence Baez RN [address] [place] [address] Farmer [employer] Family Medicine 04/10/22 Pily Glass, RN [facility] [address] [place] [address] Registered Nurse Transplant Center 04/02/23 Marco Antonio Landry MD [address] [place] [address] Referring General Surgery 04/06/23 Marco Antonio Landry MD [address] [place] [address] Home Care Provider General Surgery 04/06/23 Sampler First Relationship Specialty Start Date End Date Willem Madsen MD [address] [place] [address] PCP - General 07/18/07 Florence Baez RN [address] [place] [address] Farmer [employer] Family Medicine 04/10/22 Pily Glass RN [facility] [address] [place] [address] Registered Nurse Transplant Center 04/02/23 Marco Antonio Landry MD [address] [place] [address] Referring General Surgery 04/06/23 Marco Antonio Landry MD [address] [place] [address] Home Care Provider General Surgery 04/06/23 Sampler First Relationship Specialty Start Date End Date Willem Madsen MD [address] [place] [address] PCP - General 07/18/07 Florence Baez RN [address] [place] [address] Farmer [employer] Family Medicine 04/10/22 Pily Glass RN [facility] [address] [place] [address] Registered Nurse Transplant Center 04/02/23 Marco Antonio Landry MD [address] [place] [address] Referring General Surgery 04/06/23 Marco Antonio Landry MD [address] [place] [address] Home Care Provider General Surgery 04/06/23 Sampler First Relationship Specialty Start Date End Date Willem Madsen MD [address] [place] [address] PCP - General 07/18/07 Florence Baez RN [address] [place] [address] [employer] Family Medicine 04/10/22 Pily Glass, RN [facility] [address] [place] [address] Registered Nurse Transplant Center 04/02/23 Marco Antonio Landry MD [address] [place] [address] Referring General Surgery 04/06/23 Marco Antonio Landry MD [address] [place] [address] Home Care Provider General Surgery 04/06/23 Sampler First Relationship Specialty Start Date End Date Willem Madsen MD [address] [place], [place] 714491 PCP - General 07/18/07 Florence Baez RN [address] [place] [address] Farmer [employer] Family Medicine 04/10/22 Pily Glass, RN [facility] [address] [place] [address] Registered Nurse Transplant Center 04/02/23 Marco Antonio Landry MD [address] [place] [address] Referring General Surgery 04/06/23 Marco Antonio Landry MD [address] [place] [address] Home Care Provider General Surgery 04/06/23 Sampler First Relationship Specialty Start Date End Date Willem Madsen MD [address] [place] [address] PCP - General 07/18/07 Pily Glass RN [facility] [address] [place] [address] Registered Nurse Transplant Center 04/02/23 Marco Antonio Landry MD [address] [place] [address] Referring General Surgery 04/06/23 Marco Antonio Landry MD [address] [place] [address] Home Care Provider General Surgery 04/06/23 Rocio Uriarte, THIAGO [address] [place], [place] [phone] Farmer D[employer] Crops 02/08/24 Sampler First Relationship Specialty Start Date End Date Willem Madsen MD [address] [place], [place] 933821 PCP - General 07/18/07 Pily Glass RN [facility] [address] [place] [address] Registered Nurse Transplant Center 04/02/23 Marco Antonio Landry MD [address] [place] [address] Referring General Surgery 04/06/23 Marco Antonio Landry MD [address] [place] [address] Home Care Provider General Surgery 04/06/23 Rocio Uriarte, RN [address] [place] [address] Farmer [employer] Crops 02/08/24 Sampler First Relationship Specialty Start Date End Date Willem Madsen MD [address] [place], [place] [id number] PCP - General 07/18/07 Florence Baez, THIAGO [address] [place], [place] 9654931 Farmer [employer] Family Medicine 04/10/2201/10 Sampler First Relationship Specialty Start Date End Date Willem Madsen MD [address] [place], [place] 714181 PCP - General 07/18/07 Pily Glass RN [facility] [address] [place] [address] Registered Nurse Transplant Center 04/02/23 Marco Antonio Landry MD [address] [place] [address] Referring General Surgery 04/06/23 Marco Antonio Landry MD [address] [place], [place] 2700595 Home Care Provider General Surgery 04/06/23 Rocio Uriarte, THIAGO [address] [place] [address] Farmer D[employer] Crops 02/08/24 Sampler First Relationship Specialty Start Date End Date Willem Madsen MD [address] [place], [place] 071541 PCP - General 07/18/07 Pily Glass RN [facility] [address] [place] [address] Registered Nurse Transplant Center 04/02/23 Marco Antonio Landry MD [address] [place] [address] Referring General Surgery 04/06/23 Marco Antonio Landry MD [address] [place], [place] 6505595 Home Care Provider General Surgery 04/06/23 Rocio Uriarte, RN [address] [place], [place] [phone] Farmer Diversified Crops 02/08/24 Sampler First Relationship Specialty Start Date End Date Willem Madsen MD [address] [place], [place] [id number] PCP - General 07/18/07 Florence Baez RN [address] [place], [place] [phone] Farmer [employer] Family Medicine 04/10/22 Sampler First Relationship Specialty Start Date End Date Willem Madsen MD [address] [place], [place] [id number] PCP - General 07/18/07 Pily Glass, THIAGO [facility] [address] [place] [address] Registered Nurse Transplant Center 04/02/23 Marco Antonio Landry MD [address] [place] [address] Referring General Surgery 04/06/23 Marco Antonio Landry MD [address] [place] [address] Home Care Provider General Surgery 04/06/23 Rocio Uriarte, THIAGO [address] [place], [place] [phone] Farmer Diversified Crops 02/08/24 Sampler First Relationship Specialty Start Date End Date Willem Madsen MD [address] [place] [address] PCP - General 07/18/07 Pily Glass RN [facility] [address] [place] [address] Registered Nurse Transplant Center 04/02/23 Marco Antonio Landry MD [address] [place] [address] Referring General Surgery 04/06/23 Marco Antonio Landry MD [address] [place] [address] Home Care Provider General Surgery 04/06/23 Rocio Uriarte RN [address] [place] [address] Farmer [employer] Crops 02/08/24 Sampler First Relationship Specialty Start Date End Date Willem Madsen MD [address] [place] [address] PCP - General 07/18/07 Pily Glass RN [facility] [address] [place] [address] Registered Nurse Transplant Center 04/02/23 Marco Antonio Landry MD [address] [place] [address] Referring General Surgery 04/06/23 Marco Antonio Landry MD [address] [place] [address] Home Care Provider General Surgery 04/06/23 Rocio Uriarte RN [address] [place] [address] Farmer [employer] Crops 02/08/24 Sampler First Relationship Specialty Start Date End Date Willem Madsen MD [address] [place], [place] 115661 PCP - General 07/18/07 Pily Glass RN [facility] [address] [place] [address] Registered Nurse Transplant Center 04/02/23 Marco Antonio Landry MD [address] [place] [address] Referring General Surgery 04/06/23 Marco Antonio Landry MD [address] [place] [address] Home Care Provider General Surgery 04/06/23 Rocio Uriarte RN [address] [place] [address] [id number] Farmer [employer]ified Crops 02/08/24 Sampler First Relationship Specialty Start Date End Date Willem Madsen MD [address] [place], [place] 901721 PCP - General 07/18/07 Pily Glass RN [facility] [address] [place] [address] Registered Nurse Transplant Center 04/02/23 Marco Antonio Landry MD [address] [place] [address] Referring General Surgery 04/06/23 Marco Antonio Landry MD [address] [place] [address] Home Care Provider General Surgery 04/06/23 Kristen Bañuelos, THERAPEUTIC RECREATION SPECIALIST.EMISSIONS TECHNICIAN [address] [place] [address] Tin Plater Internal Medicine 05/19/24 Sampler First Relationship Specialty Start Date End Date Willem Madsen MD [address] [place] [address] PCP - General 07/18/07 Pily Glass RN [facility] [address] [place] [address] Registered Nurse Transplant Center 04/02/23 Marco Antonio Landry MD [address] [place] [address] Referring General Surgery 04/06/23 Marco Antonio Landry MD [address] [place], [place] 4839895 Home Care Provider General Surgery 04/06/23 Kristen Bañuelos, THERAPEUTIC RECREATION SPECIALIST.EMISSIONS TECHNICIAN [address] [facility] [place] [address] Tin Plater Internal Medicine 05/19/24 Sampler First Relationship Specialty Start Date End Date Willem Madsen MD [address] [place] [address] PCP - General 07/18/07 Pily Glass RN [facility] [address] [place] [address] Registered Nurse Transplant Center 04/02/23 Marco Antonio Landry MD [address] [place] [address] Referring General Surgery 04/06/23 Marco Antonio Landry MD [address] [place], [place] 6988995 Home Care Provider General Surgery 04/06/23 Kristen Bañuelos, THERAPEUTIC RECREATION SPECIALIST.EMISSIONS TECHNICIAN [address] [facility] [place] [address] Tin Plater Internal Medicine 05/19/24 Sampler First Relationship Specialty Start Date End Date Willem Madsen MD [address] [facility] [place] [address] PCP - General 07/18/07 Pily Glass RN [facility] [address] [place] [address] Registered Nurse Transplant Center 04/02/23 Marco Antonio Landry MD [address] [place] [address] Referring General Surgery 04/06/23 Marco Antonio Landry MD [address] [place] [address] Home Care Provider General Surgery 04/06/23 Kristen Bañuelos, THERAPEUTIC RECREATION SPECIALIST.EMISSIONS TECHNICIAN [address] [facility] [place] [address] Tin Plater Internal Medicine 05/19/24 Sampler First Relationship Specialty Start Date End Date Willem Madsen MD [address] [facility] [place] [address] PCP - General 07/18/07 Pily Glass RN [facility] [address] [place] [address] Registered Nurse Transplant Center 04/02/23 Marco Antonio Landry MD [address] [place] [address] Referring General Surgery 04/06/23 Marco Antonio Landry MD [address] [place] [address] Home Care Provider General Surgery 04/06/23 Kristen Bañuelos, THERAPEUTIC RECREATION SPECIALIST.EMISSIONS TECHNICIAN [address] [place], [place] 400461 Tin Plater Internal Medicine 05/19/24 Sampler First Relationship Specialty Start Date End Date Willem Madsen MD [address] [place], [place] 454441 PCP - General 07/18/07 Pily Glass RN [facility] [address] [place] [address] Registered Nurse Transplant Center 04/02/23 Marco Antonio Landry MD [address] [place] [address] Referring General Surgery 04/06/23 Marco Antonio Landry MD [address] [place] [address] Home Care Provider General Surgery 04/06/23 Kristen Bañuelos, THERAPEUTIC RECREATION SPECIALIST.EMISSIONS TECHNICIAN [address] [place], [place] 434301 Tin Plater Internal Medicine 05/19/24 Sampler First Relationship Specialty Start Date End Date Willem Madsen MD [address] [place], [place] 019511 PCP - General 07/18/07 Pily Glass RN [facility] [address] [place] [address] Registered Nurse Transplant Center 04/02/23 Marco Antonio Landry MD [address] [place] [address] Referring General Surgery 04/06/23 Marco Antonio Landry MD [address] [place] [address] Home Care Provider General Surgery 04/06/23 Kristen Bañuelos, THERAPEUTIC RECREATION SPECIALIST.EMISSIONS TECHNICIAN [address] [place], [place] 750651 Tin Plater Internal Medicine 05/19/24 Sampler First Relationship Specialty Start Date End Date Willem Madsen MD [address] [facility] [place] 710241 PCP - General 07/18/07 Pily Glass, THIAGO [facility] [address] [place] [address] Registered Nurse Transplant Center 04/02/23 Marco Antonio Landry MD [address] [place] [address] Referring General Surgery 04/06/23 Marco Antonio Landry MD [address] [place] [address] Home Care Provider General Surgery 04/06/23 Kristen Bañuelos, THERAPEUTIC RECREATION SPECIALIST.EMISSIONS TECHNICIAN [address] [place] [address] Tin Plater Internal Medicine 05/19/24 Sampler First Relationship Specialty Start Date End Date Willem Madsen MD [address] [place] [address] PCP - General 07/18/07 Pily Glass RN [facility] [address] [place] [address] Registered Nurse Transplant Center 04/02/23 Marco Antonio Landry MD [address] [place] [address] Referring General Surgery 04/06/23 Marco Antonio Landry MD [address] [place] [address] Home Care Provider General Surgery 04/06/23 Kristen Bañuelos, THERAPEUTIC RECREATION SPECIALIST.EMISSIONS TECHNICIAN [address] [place], [place] 523321 Tin Plater Internal Medicine 05/19/24 Sampler First Relationship Specialty Start Date End Date Willem Madsen MD [address] [place], [place] 974641 PCP - General 07/18/07 Pily Glass RN [facility] [address] [place] [address] Registered Nurse Transplant Center 04/02/23 Marco Antonio Landry MD [address] [place] [address] Referring General Surgery 04/06/23 Marco Antonio Landry MD [address] [place] [address] Home Care Provider General Surgery 04/06/23 Kristen Bañuelos, THERAPEUTIC RECREATION SPECIALIST.EMISSIONS TECHNICIAN [address] [place], [place] [id number] Tin Plater Internal Medicine 05/19/24 Sampler First Relationship Specialty Start Date End Date Willem Madsen MD [address] [place] [address] PCP - General 07/18/07 Pily Glass RN [facility] [address] [place] [address] Registered Nurse Transplant Center 04/02/23 Marco Antonio Landry MD [address] [place] [address] Referring General Surgery 04/06/23 Marco Antonio Landry MD [address] [place], [place] 3822995 Home Care Provider General Surgery 04/06/23 Kristen Bañuelos, THERAPEUTIC RECREATION SPECIALIST.EMISSIONS TECHNICIAN [address] [place] [address] Tin Plater Internal Medicine 05/19/24 Sampler First Relationship Specialty Start Date End Date Willem Madsen MD [address] [place] [address] PCP - General 07/18/07 Pily Glass RN [facility] [address] [place] [address] Registered Nurse Transplant Center 04/02/23 Marco Antonio Landry MD [address] [place] [address] Referring General Surgery 04/06/23 Marco Antonio Landry MD [address] [place], [place] 2155395 Home Care Provider General Surgery 04/06/23 Kristen Bañuelos, THERAPEUTIC RECREATION SPECIALIST.EMISSIONS TECHNICIAN [address] [place] [address] Tin Plater Internal Medicine 05/19/24 Sampler First Relationship Specialty Start Date End Date Willem Madsen MD [address] [place] [address] PCP - General 07/18/07 Pily Glass RN [facility] [address] [place] [address] Registered Nurse Transplant Center 04/02/23 Marco Antonio Landry MD [address] [place] [address] Referring General Surgery 04/06/23 Marco Antonio Landry MD [address] [place] [address] Home Care Provider General Surgery 04/06/23 Kristen Bañuelos, THERAPEUTIC RECREATION SPECIALIST.EMISSIONS TECHNICIAN [address] [place] [address] Tin Plater Internal Medicine 05/19/24 Sampler First Relationship Specialty Start Date End Date Willem Madsen MD [address] [place] [address] PCP - General 07/18/07 Pily Glass RN [facility] [address] [place] [address] Registered Nurse Transplant Center 04/02/23 Marco Antonio Landry MD [address] [place] [address] Referring General Surgery 04/06/23 Marco Antonio Landry MD [address] [place] [address] Home Care Provider General Surgery 04/06/23 Kristen Bañuelos, THERAPEUTIC RECREATION SPECIALIST.EMISSIONS TECHNICIAN [address] [place], [place] 636451 Tin Plater Internal Medicine 05/19/24 Sampler First Relationship Specialty Start Date End Date Willem Madsen MD [address] [place], [place] [id number] PCP - General 07/18/07 Pily Glass RN [facility] [address] [place] [address] Registered Nurse Transplant Center 04/02/23 Marco Antonio Landry MD [address] [place] [address] Referring General Surgery 04/06/23 Marco Antonio Landry MD [address] [place] [address] Home Care Provider General Surgery 04/06/23 Kristen Bañuelos, THERAPEUTIC RECREATION SPECIALIST.EMISSIONS TECHNICIAN [address] [place], [place] 609521 Tin Plater Internal Medicine 05/19/24 Sampler First Relationship Specialty Start Date End Date Willem Madsen MD [address] [place], [place] 040211 PCP - General 07/18/07 Pily Glass RN [facility] [address] [place] [address] Registered Nurse Transplant Center 04/02/23 Marco Antonio Landry MD [address] [place] [address] Referring General Surgery 04/06/23 Marco Antonio Landry MD [address] [place] [address] Home Care Provider General Surgery 04/06/23 Kristen Bañuelos, THERAPEUTIC RECREATION SPECIALIST.EMISSIONS TECHNICIAN [address] [facility], [place] [address] Tin Plater Internal Medicine 05/19/24 Sampler First Relationship Specialty Start Date End Date Willem Madsen MD [address] [place], [place] [id number] PCP - General 07/18/07 Pily Glass, THIAGO [facility] [address] [place] [address] Registered Nurse Transplant Center 04/02/23 Marco Antonio Landry MD [address] [place] [address] Referring General Surgery 04/06/23 Marco Antonio Landry MD [address] [place] [address] Home Care Provider General Surgery 04/06/23 Kristen Bañuelos, THERAPEUTIC RECREATION SPECIALIST.EMISSIONS TECHNICIAN [address] [facility], [place] 858581 Tin Plater Internal Medicine 05/19/24 Sampler First Relationship Specialty Start Date End Date Willem Madsen MD [address] [place], [place] 483821 PCP - General 07/18/07 Pily Glass RN [facility] [address] [place] [address] [facility] 04/02/23 Marco Antonio Landry MD [address] [place] [address] Referring General Surgery 04/06/23 Marco Antonio Landry MD [address] [place] [address] Home Care Provider General Surgery 04/06/23 Kristen Bañuelos, JEFFREY.EMISSIONS TECHNICIAN [address] [place] [address] [facility] 05/19/24 Goals (unrecognized section and content) Goals may be documented in a n alternate sectionGoals may be documented in an alternate section FOR RECORDS PERTAINING TO PATIENTS WHO ARE OR HAVE BEEN ENROLLED IN A CHEMICAL DEPENDENCY/SUBSTANCEABUSE PROGRAM, SOME INFORMATION MAY BE OMITTED. This clinical summary was aggregated from multiple sources. Caution should be exercised in using it in the provision of clinical care. This summary normalizes information from multiple sources, and as a consequence, information in this document may materially change the coding, format and clinical context of patient data. In addition, data may be omitted in some cases. CLINICAL DECISIONS SHOULD BE BASED ON THE PRIMARY CLINICAL RECORDS. [employer] provides no warranty or guarantee of the accuracy or completeness of information in this document.
== END | disposition home or self-care (01) ==
LOC: SL 19:50
PROVIDERS: PCP Internal Medicine
DX: G47.33 Obstructive sleep apnea (adult) (pediatric) (principal)
CPT/HCPCS: 95811

== ENCOUNTER 2025-05-06 15:15 | Outpatient (RCR) | payer MEDICARE, OTHER, SELFPAY ==
[2025-03-25 09:02] VITALS: BMI 33.1
--- NOTE | 2025-04-21 08:59 | CR.ITP_ITS ---
Exercise - Initial Assessment Visit Session #:: 11 Physician Prescribed Exercise Modalities: Treadmill, Schwinn Airdyne AD-7 and SciFit Stepper Nutrition - Initial Assessment Weight Mgt (Other Care) Height: 5 ft 8 in Weight:: 220 lb BMI: 33.4 Psychosocial - Initial Assess Referral to Behavioral Health PS - Interventions: Yes: Attend Stress Management Classes Exercise - 30-day Assessment Visit Date of Eval: 04/21/25 Session #:: 11 Physician Prescribed Exercise Modalities: Treadmill, Schwinn Airdyne AD-7 and SciFit Stepper Frequency: 3x/week for 12 weeks [36 sessions] Intensity: 60-80% of age predicted maximum heart rate reserve Duration: 30 - 45 minutes Current METSs:: 3.7 Target Heart Rate:: 86-108 Current RPE:: 11-12 Maximum Excercise HR:: 98 Resting Blood Pressure: 134/78 Maximum Exercise Blood Pressure: 144/76 EKG Type: NSR w/BBB, frequent PAC's Outcomes & Goals Goals:: Verbalizes understanding of THR, RPE & goal METS by session 6, Documents in home exercise log/reports 30 min aerobic 5 day/wk by DC, Demonstrates accurate pulse taking by DC and Other additional outcome/goals: see below Intervention & Plan Exercise Program Goals: Instruct on personal THR & RPE, Instruct on MET level & personal MET goal, Show patient to take own pulse /validate performance until accurate, Instruct on home exercise and Other additional plan/int Physical Activity Home Exercise Physical Activity - Home Exercise: Safe Exercise, Warm-up, Self-monitoring, Cool-Down, Home Exercise > 30 min Daily and Sitting Time <3 hours/daily Outcomes & Goals Outcomes/Goals: Demonstrates correct Warm-up/exercise Cool-Down (S3) if = 2.5 METs, Verbalizes symptoms of exercise intolerance by Session 3 (S3), Demonstrate safe equipment use (S3) & follows exercise prescrition (6) and Other: See below Intervention & Plan Plan/Intervention: Instruct warm-up & cool-down if exercising at > 2 METs, Instruct on symptoms of exercise intolerance & actions to take, Instruct & monitor on saf, Assess intial functional capacity & safety risk and Other See below 30-day Reassessments 30 day Reassessments:: Progressing Reassessment Notes & Comments:: Pt oriented to equipment. RPE explained to pt. Pt demonstrates understanding in his daily sessions. Exercise - 60-day Assessment Physician Prescribed Exercise Modalities: Treadmill, Schwinn Airdyne AD-7 and SciFit Stepper Exercise - 90-day Assessment Physician Prescribed Exercise Modalities: Treadmill, Schwinn Airdyne AD-7 and SciFit Stepper Exercise - Final/Discharge Physician Prescribed Exercise Modalities: Treadmill, Schwinn Airdyne AD-7 and SciFit Stepper Nutrition - 30-Day Assessment Program Goals Nutrition Program Goals Patient has diagnosis of Hyperlipidemia (ICD E78)?: Yes Visit Date of Eval: 04/21/25 Session #:: 11 (Nutrition score of 3.) Cholesterol/Lipids (Other Core Measures) Determine presence & major risk factors that modify LDL goal: Cigarette smoking, Hypertension or hypertensive medication, Low HDL cholesterol <40 mg/dL*, Family history of premature CHD in Male < 55 years: female <65 yearsFa and Age men > 45 years; women >/= 55 years Outcomes/Goals: Pt IDs own risk factors & lifestyle modifications by Session 10, Verbalizes symptoms of angina & response by session 3., Pt independently manages and Other Additional Outcomes/Goals: Intervention/Plan: Advocate for lipid panel cholesterol medication if applicable, Instruct on personal lipid levels & lipid goals/NCEP guidelines, Instruct on cholesterol and Other additional plan/int Diabetes (Other Core Measures) Diabetes Type: Not Applicable Weight Mgt (Other Care) Height: 5 ft 8 in Weight:: 220 lb BMI: 33.4 Diagnosis Overweight/Obesity BMI> 30% ICD-10 E66: Yes Diagnosis High BMI/Morbid Obesity BMI> 35% ICD-10 Z68: No Outcomes/Goals: Pt sets, maintains & shows weight loss goal & trend during rehab and Other additional outcomes/goals Intervention/Plan: Instruct on ideal BMI & set weight loss goal w/patient, Assist pt to ID & incorporate diet changes for weight loss by S9, Refer to Structured Weight Loss program as appropriate, Encourage goal of using 250- 300dcal per session for weight loss and Other additional plan/interventions Healthy Eating Habits Will attend diet classes:: Yes Outcomes/Goals:: Consume diet rich in vegs,fruits,whole grain/high fiber,fish,lean meat, Limit sat/trans fats,cholesterol & added salts & sugars and Other additional outcome/goals: Intervention/Plan:: Assess current eating habits and Other Additional plan/interventions 30-day Reassessments:: Progressing Reassessment Notes & Comments:: Pt is scheduled to attend nutrition classes with our foundry technician. Heart healthy low sodium diet encouraged. Education Gave educational materials for:: Signs & symptoms of hypoglycemia, Signs & symptoms of hyperglycemia, Relate diabetes to coronary artery disease and Healthy eating Nutrition - 60-Day Assessment Weight Mgt (Other Care) Height: 5 ft 8 in Weight:: 220 lb BMI: 33.4 Core - 30-Day Assessment Visit Date of Eval: 04/21/25 Session #:: 11 Medication Compliance Preventative Medication(s):: Aspirin H/O mental health issues: depression, anxiety, or addiction?: No Doesn’t believe in the benefits of treatment?: No Believes medications are unnecessary or harmful?: No Has a concern about medication side effects?: No Expresses concern over the cost of medications?: No Outcomes/Goals: Verbalizes medications,desired effect & common side effects @ DC, Pt self-reports following medication regimen, Keeps card in wallet w/medications listed by DC and Other additional outcome/goals: Interventions/plans: Instruct on medication effects & side effects, Review medication list w/patient every two weeks, Instruct importance of taking meds as ordered & assist problem solving and Other additional Tobacco Use Tobacco Use: Cigars (1 cigar every 2 weeks for 40 years.) Outcomes/Goals: Smoking cessation achieved or maintained by discharge, Identify aids/strategies for achieving smoking cessation by session 6 and Other additional outcome/goals Interventions/plan: Instruct on effects of smoking & provide smoking cessation resource, Assist pt to set quit date & provide encouragement, Assist pt to develop strategies to achieve/maintain quit date, Assist pt w/nicotine replacement & medication for cessation success and Other additional plan/interventions 30-day Reassessments:: Progressing Reassessment Notes & Comments:: Pt to attend smoking cessation class. Pt encouraged to participate in 1 on 1 smoking cessation. Hypertension Hypertension Diagnosis:: Hypertension ICD-10 I10 Resting Blood Pressure:: 134/78 [place] [employer] Hypertension Guidelines Peak Exercise Blood Pressure:: 144/76 Outcomes/Goals: Able to verbalize/achieve optimal blood pressure <130/80, Incorporates diet changes & exercise for blood pressure control by DC and Other additional outcomes/goals Interventions/plan: Instruct on optimal blood pressure, hypertension & medications, Instruct on effects of sodium, alcohol, stress, exercise &hypertension and Other additional plan/interventions 30 day Reassessments:: Progressing Reassessment Notes & Comments:: Pt's BP's are within AHA normal limits on most days. Pt learning the effects of sodium on BP. Will continue to monitor and report to pt's physician if necessary. Tobacco Cessation Referral Education Schedule Given:: Yes Psychosocial - 30-Day Assess VIsit Date of Eval: 04/21/25 Session #:: 11 History of previous Mental disease:: No Psychosocial Test Tool Used:: Ferrans Power QOL Cardiac and PHQ-9 Questionnaire phq-9 Severity See PHQ-9 Score: 3 Referral to Behavioral Health PS - Interventions: Yes: Attend Stress Management Classes Outcomes/Goals: See list Psychosocial Outcomes/Goals:: ID's personal stressors & 2 strategies to manage stress by discharge and Other Additional outcome/goals: Intervention/Plan: See List Interventions/Plan:: Assess stressors,coping strategies & signs of derpression on admission, Instruct/assist pt to develop coping & personal stress Mgt strategies, Refer to Behavioral Health if appropriate, Refer to Physician if appropriate, Instruct patient to recognize signs & symptoms of depression, Instruct patient to recog and Other additional plan/intervention 30-day Reassessments: 30 day Reassessments:: Progressing Reassessment Notes & Comments:: Pt denies any psychosocial issues at this time. Pt to attend stress management class. Will reassess every 30 days. Psychosocial - 60-Day Assess Referral to Behavioral Health PS - Interventions: Yes: Attend Stress Management Classes Outcomes/Goals: See list Psychosocial Outcomes/Goals:: ID's personal stressors & 2 strategies to manage stress by discharge and Other Additional outcome/goals: Psychosocial - 90-Day Assess Referral to Behavioral Health PS - Interventions: Yes: Attend Stress Management Classes Psychosocial - Final Assessmen Referral to Behavioral Health PS - Interventions: Yes: Attend Stress Management Classes Nutrition - 90-Day Assessment Weight Mgt (Other Care) Height: 5 ft 8 in Weight:: 220 lb BMI: 33.4 Nutrition - Final Assessment Weight Mgt (Other Care) Height: 5 ft 8 in Weight:: 220 lb BMI: 33.4
[2025-04-21 09:10] VITALS: BP 134/78; BMI 33.4
== END 2025-05-10 23:59 ==
LOC: CR 15:15
PROVIDERS: PCP Internal Medicine
DX: R07.9 Chest pain, unspecified (principal); I50.810 Right heart failure, unspecified; I20.9 Angina pectoris, unspecified
CPT/HCPCS: 93798

== ENCOUNTER 2025-06-10 15:15 | Outpatient (RCR) | payer MEDICARE, OTHER, SELFPAY ==
[2025-04-21 09:10] VITALS: BMI 33.4
--- NOTE | 2025-05-21 09:10 | PCM.CR.ITP ---
Exercise - Initial Assessment Physician Prescribed Exercise Modalities: Treadmill, Schwinn Airdyne AD-7 and SciFit Stepper Nutrition - Initial Assessment Weight Mgt (Other Care) Height: 5 ft 8 in Weight:: 222 lb BMI: 33.7 Core - Initial Assessment Hypertension Resting Blood Pressure:: 130/86 [place] [employer] Hypertension Guidelines Psychosocial - Initial Assess Referral to Behavioral Health PS - Interventions: Yes: Attend Stress Management Classes Exercise - 30-day Assessment Physician Prescribed Exercise Modalities: Treadmill, Schwinn Airdyne AD-7 and SciFit Stepper Exercise - 60-day Assessment Visit Date of Eval: 05/21/25 Session #:: 23 Physician Prescribed Exercise Modalities: Treadmill, Schwinn Airdyne AD-7 and SciFit Stepper Frequency: 3x/week for 12 weeks [36 sessions] Intensity: 60-80% of age predicted maximum heart rate reserve Duration: 30 - 45 minutes Current METSs:: 4.8 Target Heart Rate:: 86-108 Current RPE:: 12-13 Maximum Excercise HR:: 117 Resting Blood Pressure: 140/78 Maximum Exercise Blood Pressure: 144/76 EKG Type: NSR-ST occas bigeminal PAC's Outcomes & Goals Goals:: Verbalizes understanding of THR, RPE & goal METS by session 6, Documents in home exercise log/reports 30 min aerobic 5 day/wk by DC, Demonstrates accurate pulse taking by DC and Other additional outcome/goals: see below Intervention & Plan Exercise Program Goals: Instruct on personal THR & RPE, Instruct on MET level & personal MET goal, Show patient to take own pulse /validate performance until accurate, Instruct on home exercise and Other additional plan/int Physical Activity Home Exercise Physical Activity - Home Exercise: Safe Exercise, Warm-up, Self-monitoring, Cool-Down, Home Exercise > 30 min Daily and Sitting Time <3 hours/daily Outcomes & Goals Outcomes/Goals: Demonstrates correct Warm-up/exercise Cool-Down (S3) if = 2.5 METs, Verbalizes symptoms of exercise intolerance by Session 3 (S3), Demonstrate safe equipment use (S3) & follows exercise prescrition (6) and Other: See below Intervention & Plan Plan/Intervention: Instruct warm-up & cool-down if exercising at > 2 METs, Instruct on symptoms of exercise intolerance & actions to take, Instruct & monitor on saf, Assess intial functional capacity & safety risk and Other See below 30-day Reassessments 30 day Reassessments:: Progressing Reassessment Notes & Comments:: Proper warm up and cool down demonstrated and explained to pt. Pt is able to return demonstration in their daily sessions. Exercise - 90-day Assessment Physician Prescribed Exercise Modalities: Treadmill, Schwinn Airdyne AD-7 and SciFit Stepper Exercise - Final/Discharge Physician Prescribed Exercise Modalities: Treadmill, Schwinn Airdyne AD-7 and SciFit Stepper Nutrition - 30-Day Assessment Weight Mgt (Other Care) Height: 5 ft 8 in Weight:: 222 lb BMI: 33.7 Nutrition - 60-Day Assessment Program Goals Nutrition Program Goals Patient has diagnosis of Hyperlipidemia (ICD E78)?: Yes Visit Date of Eval: 05/21/25 Session #:: 23 (nutrition survey score of 3.) Cholesterol/Lipids (Other Core Measures) Determine presence & major risk factors that modify LDL goal: Cigarette smoking, Hypertension or hypertensive medication, Low HDL cholesterol <40 mg/dL*, Family history of premature CHD in Male < 55 years: female <65 yearsFa and Age men > 45 years; women >/= 55 years Intervention/Plan: Advocate for lipid panel cholesterol medication if applicable, Instruct on personal lipid levels & lipid goals/NCEP guidelines, Instruct on cholesterol and Other additional plan/int Weight Mgt (Other Care) Height: 5 ft 8 in Weight:: 222 lb BMI: 33.7 Diagnosis Overweight/Obesity BMI> 30% ICD-10 E66: Yes Diagnosis High BMI/Morbid Obesity BMI> 35% ICD-10 Z68: No Outcomes/Goals: Pt sets, maintains & shows weight loss goal & trend during rehab and Other additional outcomes/goals Intervention/Plan: Instruct on ideal BMI & set weight loss goal w/patient, Assist pt to ID & incorporate diet changes for weight loss by S9, Refer to Structured Weight Loss program as appropriate, Encourage goal of using 250-300dcal per session for weight loss and Other additional plan/interventions Healthy Eating Habits Will attend diet classes:: Yes Outcomes/Goals:: Consume diet rich in vegs,fruits,whole grain/high fiber,fish,lean meat, Limit sat/trans fats,cholesterol & added salts & sugars and Other additional outcome/goals: Intervention/Plan:: Assess current eating habits and Other Additional plan/interventions 30-day Reassessments:: Met Reassessment Notes & Comments:: Pt has attended nutrition class. Pt understands the benefits of a hearth healthy low sodium diet. Education Gave educational materials for:: Signs & symptoms of hypoglycemia, Signs & symptoms of hyperglycemia, Relate diabetes to coronary artery disease and Healthy eating Core - Final Assessment Tobacco Use Years Smokin (1 cigar every 2 weeks for 40 years.) Hypertension Resting Blood Pressure:: 130/86 [place] [employer] Hypertension Guidelines Core - 60-Day Assessment Visit Date of Eval: 05/21/25 Session #:: 23 Medication Compliance Preventative Medication(s):: Aspirin H/O mental health issues: depression, anxiety, or addiction?: No Doesn?t believe in the benefits of treatment?: No Believes medications are unnecessary or harmful?: No Has a concern about medication side effects?: No Expresses concern over the cost of medications?: No Outcomes/Goals: Verbalizes medications,desired effect & common side effects @ DC, Pt self-reports following medication regimen, Keeps card in wallet w/medications listed by DC and Other additional outcome/goals: Interventions/plans: Instruct on medication effects & side effects, Review medication list w/patient every two weeks, Instruct importance of taking meds as ordered & assist problem solving and Other additional Tobacco Use Tobacco Use: Cigars Years Smokin (1 cigar every 2 weeks for 40 years.) Interventions/plan: Instruct on effects of smoking & provide smoking cessation resource, Assist pt to set quit date & provide encouragement, Assist pt to develop strategies to achieve/maintain quit date, Assist pt w/nicotine replacement & medication for cessation success and Other additional plan/interventions Hypertension Hypertension Diagnosis:: Hypertension ICD-10 I10 Resting Blood Pressure:: 140/78 Resting Blood Pressure:: 130/86 [place] [employer] Hypertension Guidelines Peak Exercise Blood Pressure:: 144/76 Outcomes/Goals: Able to verbalize/achieve optimal blood pressure <130/80, Incorporates diet changes & exercise for blood pressure control by DC and Other additional outcomes/goals Interventions/plan: Instruct on optimal blood pressure, hypertension & medications, Instruct on effects of sodium, alcohol, stress, exercise &hypertension and Other additional plan/interventions 30 day Reassessments:: Progressing Reassessment Notes & Comments:: Pt's BP's are within AHA normal limits on some days. Will continue to monitor and report to pt's physician if necessary. Tobacco Cessation Referral Education Schedule Given:: Yes Psychosocial - 30-Day Assess Referral to Behavioral Health PS - Interventions: Yes: Attend Stress Management Classes Outcomes/Goals: See list Psychosocial Outcomes/Goals:: ID's personal stressors & 2 strategies to manage stress by discharge and Other Additional outcome/goals: Psychosocial - 60-Day Assess VIsit Date of Eval: 05/21/25 Session #:: 23 History of previous Mental disease:: No Psychosocial Test Tool Used:: [employer] Power QOL Cardiac and PHQ-9 Questionnaire phq-9 Severity See PHQ-9 Score: 3 Referral to Behavioral Health PS - Interventions: Yes: Attend Stress Management Classes Outcomes/Goals: See list Psychosocial Outcomes/Goals:: ID's personal stressors & 2 strategies to manage stress by discharge and Other Additional outcome/goals: Intervention/Plan: See List Interventions/Plan:: Assess stressors,coping strategies & signs of derpression on admission, Instruct/assist pt to develop coping & personal stress Mgt strategies, Refer to Behavioral Health if appropriate, Refer to Physician if appropriate, Instruct patient to recognize signs & symptoms of depression, Instruct patient to recog and Other additional plan/intervention 30-day Reassessments: 30 day Reassessments:: Progressing Reassessment Notes & Comments:: Pt denies any psychosocial issues at this time. Pt to attend stress management classes. Will reassess every 30 days. Psychosocial - 90-Day Assess Referral to Behavioral Health PS - Interventions: Yes: Attend Stress Management Classes Psychosocial - Final Assessmen Referral to Behavioral Health PS - Interventions: Yes: Attend Stress Management Classes Nutrition - 90-Day Assessment Weight Mgt (Other Care) Height: 5 ft 8 in Weight:: 222 lb BMI: 33.7 Nutrition - Final Assessment Weight Mgt (Other Care) Height: 5 ft 8 in Weight:: 222 lb BMI: 33.7
[2025-05-21 09:14] VITALS: BP 140/78
[2025-05-21 09:21] VITALS: BP 130/86; BP 140/78; BMI 33.7
== END 2025-06-10 23:59 ==
LOC: CR 15:15
PROVIDERS: PCP Internal Medicine
DX: R07.9 Chest pain, unspecified (principal); I50.810 Right heart failure, unspecified; I20.9 Angina pectoris, unspecified
CPT/HCPCS: 93798